=== PATIENT | male | born 1950 | race Caucasian/White ===

== ENCOUNTER 2017-01-04 00:26 | Emergency (ER) | payer MEDICARE ==
[2017-01-04 00:31] VITALS: RESP 18; TEMP 98.2
[2017-01-04] MEDS ORDERED: MORPHINE SULFATE 4 MG/ML SYRINGE IV STA (01:01)
[2017-01-04] MEDS ORDERED: NITROGLYCERIN OINT 1 INCH/GM PACKET TOPICAL STA (01:01)
[2017-01-04] MEDS ORDERED: ASPIRIN 81 MG CHEW PO STA (01:01)
[2017-01-04] MEDS ORDERED: ONDANSETRON 4 MG/2 ML VIAL IVP STA (01:01)
[2017-01-04] MEDS ORDERED: SODIUM CHLORIDE 0.9% 1,000 ML IV STA (01:01)
--- NOTE | 2017-01-04 01:03 | ED ---
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 His review of system or otherwise normal N he had a surgery on his right knee and is doing fairly well - Related Data Home Medications Medication Instructions Recorded Confirmed Aspirin 81 mg PO DAILY 03/20/14 01/04/17 Citalopram Hydrobromide 40 mg PO DAILY 03/20/14 01/04/17 [Citalopram HBr] Esomeprazole Magnesium [NexIUM] 40 mg PO DAILY 03/20/14 01/04/17 Klor-Con 20 20 meq PO DAILY 03/20/14 01/04/17 Lisinopril 40 mg PO DAILY 03/20/14 01/04/17 HYDROcodone/APAP 5-325MG [[place] 1 tab PO Q6HR PRN 01/04/17 01/04/17 5-325] Allergies Allergy/AdvReac Type Severity Reaction Status Date / Time No Known Allergies Allergy Verified 01/04/17 00:31 Review of Systems ROS Statement: Those systems with pertinent positive or pertinent negative responses have been documented in the HPI. ROS Other: All systems not noted in ROS Statement are negative. EKG Findings - EKG Comments: EKG Findings:: EKG is a normal sinus rhythm ventricular rate is 66 OR interval is 164 QRS duration is 1 or 2 QT/QTc is 440/461 review of this EKG does not reveal any ST elevation or ST depression Past Medical History Past Medical History: GERD/Reflux, Hyperlipidemia, Respiratory Disorder Additional Past Medical History / Comment(s): SNORES & BEING TESTED FOR SLEEP APNEA-HAS SOME SINUS PROBLEMS-VERY NASAL History of Any Multi-Drug Resistant Organisms: None Reported Past Surgical History: Back Surgery, Hernia Repair Additional Past Surgical History / Comment(s): HIATAL HERNA REPAIR Past Anesthesia/Blood Transfusion Reactions: No Reported Reaction Past Psychological History: No Psychological Hx Reported Smoking Status: Current every day smoker Past Alcohol Use History: Occasional Past Drug Use History: None Reported Additional Drug Use History / Comment(s): PT SMOKES 1 PPD General Exam - General Exam Comments Initial Comments: General: The patient is awake and alert, in no distress, and does not appear acutely ill. Skin: Skin is warm and dry and no rashes or lesions are noted. Eye: Pupils are equal, round and reactive to light, extra-ocular movements are intact; there is normal conjunctiva bilaterally. Ears, nose, mouth and throat: There are moist mucous membranes and no oral lesions. Neck: The neck is supple, there is no tenderness or JVD. Cardiovascular: There is a regular rate and rhythm. No murmur, rub or gallop is appreciated. Respiratory: To auscultation bilateral, crease breath sounds bilateral and consistent with the moderate COPD Gastrointestinal: Soft, non-distended, non-tender abdomen without masses or organomegaly noted. There is no rebound or guarding present. Bowel sounds are unremarkable. Back: There is no tenderness to palpation in the midline. There is no obvious deformity. Musculoskeletal: Normal ROM, no tenderness, There is no pedal edema. There is no calf tenderness or swelling. No cords were appreciated. Neurological: CN II-XII intact, Cranial nerves III through XII are intact. There are no obvious motor or sensory deficits. Coordination appears grossly intact. Speech is normal. Psychiatric: Cooperative, appropriate mood & affect, normal judgment. Limitations: no limitations Course Vital Signs 01/04/17 01/04/17 01/04/17 00:28 02:14 03:14 Temperature 98.2 F Pulse Rate 68 71 69 Respiratory 18 18 18 Rate Blood Pressure 142/78 119/67 127/63 O2 Sat by Pulse 96 96 98 Oximetry Critical Care Time Total Critical Care Time: 35 Critical Care Time: Patient presented with a chest pain since 10 AM today, he has a multiple risk factors he has a history of smoking I reviewed his labs and discussed with him his CBC, CMP are negative d-dimer is quite elevated CT chest was done to rule out PE that study is negative chest x-rays negative considering considering his risk factor he was advised to stay in for at least 3 sets of cardiac markers and now for possible cardiology consult and medical plan to heparinize him but tender at this point he wants to go home AGAINST MEDICAL ADVICE, I encouraged him to stay at least for observation. Disposition Clinical Impression: Chest pain Disposition: Left Against Medical Advice Instructions: Chest Pain (ED) Additional Instructions: Is advised to return to the ER if his symptoms get worse and follow-up with Dr. Gallardo Referrals: Martin Gallardo MD [Primary Care Provider] - 1-2 days
[2017-01-04 01:20] LABS: Basophils # (A) 0.1 k/uL (0-0.2); Basophils % (A) 1 %; CH 31.3; CHCM 33.3; Eosinophils # (A) 0.4 k/uL (0-0.7); Eosinophils % (A) 4 %; HDW 2.45; HGB 14.9 gm/dL (13.0-17.5); Luc # (Auto) 0.21; Luc % (Auto) 2; Lymphocytes # (A) 2.5 k/uL (1.0-4.8); Lymphocytes % (A) 21 %; MCH 31.2 pg (25.0-35.0); MCHC 33.1 g/dL (31.0-37.0); MCV 94.4 fL (80.0-100.0); Mean Platelet Volume 6.9; Monocytes # (A) 0.7 k/uL (0-1.0); Monocytes % (A) 6 %; Neutrophils # (A) 7.7 k/uL (1.3-7.7); Neutrophils % (A) 66 %; RBC 4.77 m/uL (4.30-5.90); RDW 12.9 % (11.5-15.5); WBC 11.7 k/uL (3.8-10.6); WBC (Perox) 11.26
[2017-01-04 01:31] LABS: Calcium 9.4 mg/dL (8.4-10.2); Magnesium 1.7 mg/dL (1.6-2.3); Potassium 4.6 mmol/L (3.5-5.1); Total Bilirubin 0.5 mg/dL (0.2-1.3); Total Protein 6.8 g/dL (6.3-8.2)
[2017-01-04 01:38] LABS: INR 1.1 (<1.1); Partial Thromboplastin Time 23.7 sec (22.0-30.0); Prothrombin Time 11.1 sec (9.0-12.0)
--- NOTE | 2017-01-04 01:38 | XR ---
EXAM: XR Chest, 2 Views. CLINICAL HISTORY: Reason: Chest Pain TECHNIQUE: Frontal and lateral views of the chest. COMPARISON: No relevant prior studies available. FINDINGS: Lungs: Minimal linear opacities present within both lungs, which may reflect minimal fibrotic changes or atelectasis/scarring. No superimposed infiltrate present. Pleural spaces: Unremarkable. No pneumothorax. Heart: Unremarkable. No cardiomegaly. Mediastinum: Unremarkable. Bones: Multilevel degenerative changes with slight rightward curvature of the thoracolumbar spine. IMPRESSION: No definite acute intrathoracic abnormality is seen, as above.
[2017-01-04 01:54] LABS: Creatine Kinase 43 U/L (55-170)
[2017-01-04 02:07] LABS: Creatine Kinase MB 0.5 ng/mL (0.0-2.4); Troponin I <0.012 ng/mL (0.000-0.034)
[2017-01-04] MEDS ORDERED: RX INFO: IV CONTRAST WAS GIVEN 1 EACH MISC MISCELLANE PRN (02:29)
[2017-01-04] MEDS ORDERED: SODIUM CHLORIDE 0.9% 500 ML IV ONE (02:30)
--- NOTE | 2017-01-04 03:26 | CT ---
EXAM: CT Angiography Chest With Intravenous Contrast. CLINICAL HISTORY: Reason: Pain TECHNIQUE: Axial computed tomographic angiography images of the chest with intravenous contrast using pulmonary embolism protocol. CTDI is 76.50 mGy and DLP is 417.80 mGy-cm MIP reconstructed images were created and reviewed. COMPARISON: Two-view chest earlier the same evening. FINDINGS: Pulmonary arteries: Unremarkable. No pulmonary embolism. Aorta: No acute findings. No thoracic aortic aneurysm. Lungs: There is a calcified granuloma in the right lower lobe. No mass. Pleural spaces: Unremarkable. No significant effusion. No pneumothorax. Heart: Small amount of coronary atherosclerotic calcification is seen. No significant pericardial effusion. No evidence of RV dysfunction. Bones: Osteopenia and multilevel degenerative changes. Slight rightward curvature of the thoracic spine. Hemangiomata are present within the T10 and T11 vertebral bodies. No acute fracture is seen. Lymph nodes: There are small calcified right hilar nodes. Upper abdomen: Tiny hepatic granuloma is present. Debris filled stomach noted, where included. IMPRESSION: 1. No definite acute process seen within the chest. 2. Additional findings, including coronary artery calcification and sequela from prior granulomatous disease, as above.
[2017-01-04 03:43] VITALS: BP 127/63; PULSE 69
== END 2017-01-04 04:10 | disposition left against medical advice (07) ==
LOC: EC 00:26
DX: R07.9 Chest pain, unspecified (principal); K21.9 Gastro-esophageal reflux disease without esophagitis; F17.200 Nicotine dependence, unspecified, uncomplicated; Z79.82 Long term (current) use of aspirin; Z79.899 Other long term (current) drug therapy
CPT/HCPCS: 99291; 96374; 96375; 96361 ×2; 36415; 93005; 85379; 80053; 82150; 82550; 82553; 83690; 83735; 84484; 85025; 85610; 85730; 71020; 71275; J2270; Q9967; J2405

== ENCOUNTER → 2019-03-28 | Outpatient (CLI) | payer MEDICARE ==
--- NOTE | 2019-03-28 14:39 | CTL ---
EXAMINATION TYPE: CT Low Dose Lung DATE OF EXAM ORDERED: 03/28/2019 HISTORY: Personal history of tobacco abuse. Lung cancer screening CT DLP: [address] CTDI: 2.68 mGy Automated exposure control for dose reduction was used. SCREENING VISIT: Initial COMPARISON: CT chest dated 01/04/2017 TECHNIQUE: Low dose computed tomography scan was performed through the chest at 1 mm thick sections a nd reconstructed images in the coronal plane at [address] DIAGNOSTIC QUALITY: Satisfactory FINDINGS: LUNG NODULES: Present, detailed below: There is a solid right apical pulmonary nodule contiguous with right apical fibrosis. This nodular de nsity measures approximately 5 mm. This likely represents continuation of a benign process. This is m arked on series 5 image 36. There is a benign right lower lobe medial granuloma on image 197. LUNGS: COPD: Severity: Mild centrilobular Fibrosis: Severity: Right apical only Lymph nodes: Calcified benign mediastinal lymph nodes. No adenopathy. RIGHT PLEURAL SPACE: Effusion: None Calcification: None Thickening: None Pneumothorax: None LEFT PLEURAL SPACE: Effusion: None Calcification: None Thickening: None Pneumothorax: None HEART: Heart Size: Nonenlarged Coronary calcification: Mild Pericardial effusion: None OTHER FINDINGS: Upper abdomen: Hepatic steatosis is incidentally noted. Bony thorax: Mild multilevel degenerative changes of the thoracic spine are seen. There appears to be a vertebral body hemangioma at T10 as the line sign is seen with internal trabecula. This is also se en to a lesser degree of T11. Compression deformity is seen of the T4 vertebral body that is age inde terminant. Lucent osseous cyst of the sternal body appears benign. Supraclavicular region: Unremarkable IMPRESSION: 1. Lung RADS 2S-benign appearance or behavior-nodules with a very low likelihood of becoming a clinic ally active cancer due to size. Continued annual screening with low dose CT in 12 months is recommend ed. 2. Age indeterminant compression deformity of the T4 vertebral body. Correlate with point tenderness to determine the need for MRI. FOLLOW UP CT CHEST RECOMMENDATION: Continued annual low dose screening with low dose CT in [address] LUNG RAD: 2S
== END | disposition home or self-care (01) ==
LOC: RADCTMAIN 13:35
PROVIDERS: ATTEND Internal Medicine
DX: Z12.2 Encounter for screening for malignant neoplasm of respiratory organs (principal); Z87.891 Personal history of nicotine dependence

== ENCOUNTER 2019-04-15 22:03 | Inpatient (IN) | payer MEDICARE ==
[2019-04-15] MEDS ORDERED: ONDANSETRON 4 MG/2 ML VIAL IVP STA (22:16)
[2019-04-15] MEDS ORDERED: SODIUM CHLORIDE 0.9% 1,000 ML IV STA (22:16)
[2019-04-15] MEDS ORDERED: MORPHINE SULFATE 4 MG/ML SYRINGE IV STA (22:16)
[2019-04-15] MEDS ORDERED: IPRATROPIUM-ALBUTEROL 3 ML NEB INHALATION STA (22:24)
--- NOTE | 2019-04-15 22:25 | ED ---
Abdominal Pain HPI - General Chief Complaint: Abdominal Pain Stated Complaint: Abd pain Time Seen by Provider: 04/15/19 22:16 Source: patient Mode of arrival: wheelchair Limitations: physical limitation - History of Present Illness Initial Comments: Sigifredo is a 69 -year-old male who is brought to the emergency department today by family for evaluation of abdominal pain. Patient reports that approximately 24 hours ago he began having some abdominal pain had some nausea and nonbloody emesis. Patient reports that throughout the day today he's had crampy abdominal pain, nausea and decreased by mouth intake. This evening the pain has become unbearable, he has pain in his abdomen with any deep breath, and is beginning to feel short of breath and family encouraged him to come to the ER for further evaluation. Patient does have a history of hiatal hernia which was surgically repaired a number of years ago no other history of any abdominal surgeries. Patient denies any fevers, chills, chest pain, diarrhea, constipation or lower urinary tract symptoms. - Related Data Home Medications Medication Instructions Recorded Confirmed Aspirin 81 mg PO DAILY 03/20/14 01/04/17 Citalopram Hydrobromide 40 mg PO DAILY 03/20/14 01/04/17 [Citalopram HBr] Esomeprazole Magnesium [NexIUM] 40 mg PO DAILY 03/20/14 01/04/17 Klor-Con 20 20 meq PO DAILY 03/20/14 01/04/17 Lisinopril 40 mg PO DAILY 03/20/14 01/04/17 HYDROcodone/APAP 5-325MG [[place] 1 tab PO Q6HR PRN 01/04/17 01/04/17 5-325] Allergies Allergy/AdvReac Type Severity Reaction Status Date / Time No Known Allergies Allergy Verified 04/15/19 22:11 Review of Systems ROS Statement: Those systems with pertinent positive or pertinent negative responses have been documented in the HPI. ROS Other: All systems not noted in ROS Statement are negative. Past Medical History Past Medical History: GERD/Reflux, Hyperlipidemia, Hypertension, Respiratory Disorder Additional Past Medical History / Comment(s): SNORES & BEING TESTED FOR SLEEP APNEA-HAS SOME SINUS PROBLEMS-VERY NASAL History of Any Multi-Drug Resistant Organisms: None Reported Past Surgical History: Back Surgery, Hernia Repair Additional Past Surgical History / Comment(s): HIATAL HERNA REPAIR Past Anesthesia/Blood Transfusion Reactions: No Reported Reaction Past Psychological History: No Psychological Hx Reported Smoking Status: Former smoker Past Alcohol Use History: Occasional Past Drug Use History: None Reported General Exam - General Exam Comments Initial Comments: Physical Exam GENERAL: Patient is well-developed and well-nourished. Appears uncomfortable HENT: Normocephalic, Atraumatic. EYES: PERRL, EOMI PULMONARY: Tachypnea with expiratory wheezing CARDIOVASCULAR: Tachycardic, regular ABDOMEN: Distended, diffuse tenderness SKIN: Skin is clear with no lesions or rashes and otherwise unremarkable. : Deferred NEUROLOGIC: Patient is alert and oriented x3. Moving all extremities spontaneously MUSCULOSKELETAL: Normal extremities with adequate strength and full range of motion. No lower extremity swelling or edema. No calf tenderness. PSYCHIATRIC: Normal psychiatric evaluation Limitations: physical limitation Course Vital Signs 04/15/19 04/15/19 04/15/19 22:08 23:17 23:24 Temperature 99.2 F Pulse Rate 122 H 117 H 113 H Respiratory 18 18 16 Rate Blood Pressure 125/79 O2 Sat by Pulse 94 L Oximetry 04/16/19 00:30 Temperature Pulse Rate 111 H Respiratory 22 Rate Blood Pressure 150/75 O2 Sat by Pulse 91 L Oximetry Medical Decision Making - Medical Decision Making Patient was seen and evaluated, history obtained from patient and family at bedside Patient noted to be tachypnic, tachycardic, appears uncomfortable Sepsis workup ordered Duonebs ordered for wheezing Reveal leukocytosis, normal kidney function Computed tomography scan concerning for a cecal mass possible gastritis, colitis Results discussed with the patient and family at bedside Patient reported morphine helped transiently however he is having pain again. Patient will be admitted for antibiotics for colitis, fluid resuscitation, pain management and evaluation by surgery. Patient family are agreeable to this. - Lab Data Result diagrams: 04/15/19 22:45 04/15/19 22:45 Lab Results 04/15/19 04/15/19 04/15/19 Range/Units 22:45 22:45 22:45 WBC 16.7 H (3.8-10.6) k/uL RBC 4.84 (4.30-5.90) m/uL Hgb 14.7 (13.0-17.5) gm/dL Hct 44.1 (39.0-53.0) % MCV 91.3 (80.0-100.0) fL MCH 30.4 (25.0-35.0) pg MCHC 33.3 (31.0-37.0) g/dL RDW 12.8 (11.5-15.5) % Plt Count 251 (150-450) k/uL Neutrophils % 83 % Lymphocytes % 10 % Monocytes % 5 % Eosinophils % 1 % Basophils % 0 % Neutrophils # 13.9 H (1.3-7.7) k/uL Lymphocytes # 1.6 (1.0-4.8) k/uL Monocytes # 0.8 (0-1.0) k/uL Eosinophils # 0.1 (0-0.7) k/uL Basophils # 0.0 (0-0.2) k/uL PT (9.0-12.0) sec INR (<1.2) APTT (22.0-30.0) sec Sodium 134 L (137-145) mmol/L Potassium 4.1 (3.5-5.1) mmol/L Chloride 100 (98-107) mmol/L Carbon Dioxide 22 (22-30) mmol/L Anion Gap 12 mmol/L BUN 11 (9-20) mg/dL Creatinine 0.74 (0.66-1.25) mg/dL Est GFR (CKD-EPI)AfAm >90 (>60 ml/min/1.73 sqM) Est GFR (CKD-EPI)NonAf >90 (>60 ml/min/1.73 sqM) Glucose 109 H (74-99) mg/dL Plasma Lactic Acid [place] 1.4 (0.7-2.0) mmol/L Calcium 9.7 (8.4-10.2) mg/dL Total Bilirubin 1.0 (0.2-1.3) mg/dL AST 27 (17-59) U/L ALT 40 (21-72) U/L Alkaline Phosphatase 69 (38-126) U/L Troponin I (0.000-0.034) ng/mL Total Protein 7.1 (6.3-8.2) g/dL Albumin 4.1 (3.5-5.0) g/dL Amylase 40 (30-110) U/L Lipase 56 (23-300) U/L 04/15/19 04/15/19 Range/Units 22:45 22:45 WBC (3.8-10.6) k/uL RBC (4.30-5.90) m/uL Hgb (13.0-17.5) gm/dL Hct (39.0-53.0) % MCV (80.0-100.0) fL MCH (25.0-35.0) pg MCHC (31.0-37.0) g/dL RDW (11.5-15.5) % Plt Count (150-450) k/uL Neutrophils % % Lymphocytes % % Monocytes % % Eosinophils % % Basophils % % Neutrophils # (1.3-7.7) k/uL Lymphocytes # (1.0-4.8) k/uL Monocytes # (0-1.0) k/uL Eosinophils # (0-0.7) k/uL Basophils # (0-0.2) k/uL PT 10.7 (9.0-12.0) sec INR 1.0 (<1.2) APTT 25.7 (22.0-30.0) sec Sodium (137-145) mmol/L Potassium (3.5-5.1) mmol/L Chloride (98-107) mmol/L Carbon Dioxide (22-30) mmol/L Anion Gap mmol/L BUN (9-20) mg/dL Creatinine (0.66-1.25) mg/dL Est GFR (CKD-EPI)AfAm (>60 ml/min/1.73 sqM) Est GFR (CKD-EPI)NonAf (>60 ml/min/1.73 sqM) Glucose (74-99) mg/dL Plasma Lactic Acid [place] (0.7-2.0) mmol/L Calcium (8.4-10.2) mg/dL Total Bilirubin (0.2-1.3) mg/dL AST (17-59) U/L ALT (21-72) U/L Alkaline Phosphatase (38-126) U/L Troponin I <0.012 (0.000-0.034) ng/mL Total Protein (6.3-8.2) g/dL Albumin (3.5-5.0) g/dL Amylase (30-110) U/L Lipase (23-300) U/L - EKG Data -: EKG Interpreted by [facility] EKG Comments: EKG was obtained at 20-25, rate is 111 rhythm is sinus tach with a bifascicular block and leftward axis normal intervals no acute ST elevations or depressions no evidence of acute ischemia or infarction. Disposition Clinical Impression: Abdominal pain, Colitis, Gastritis, Mass of cecum, Leukocytosis Disposition: ADMITTED IP TO THIS HOSP Condition: Stable Instructions (If sedation given, give patient instructions): Abdominal Pain (ED) Referrals: Martin Gallardo MD [Primary Care Provider] - 1-2 days
[2019-04-15 23:06] LABS: Basophils % (A) 0 %; Eosinophils # (A) 0.1 k/uL (0-0.7); Eosinophils % (A) 1 %; HCT 44.1 % (39.0-53.0); HGB 14.7 gm/dL (13.0-17.5); Lymphocytes # (A) 1.6 k/uL (1.0-4.8); Lymphocytes % (A) 10 %; MCH 30.4 pg (25.0-35.0); MCHC 33.3 g/dL (31.0-37.0); MCV 91.3 fL (80.0-100.0); Mean Platelet Volume 6.5; Monocytes # (A) 0.8 k/uL (0-1.0); Monocytes % (A) 5 %; Neutrophils # (A) 13.9 k/uL (1.3-7.7); Neutrophils % (A) 83 %; Platelet Count 251 k/uL (150-450); RBC 4.84 m/uL (4.30-5.90); RDW 12.8 % (11.5-15.5); WBC 16.7 k/uL (3.8-10.6)
[2019-04-15 23:14] LABS: Partial Thromboplastin Time 25.7 sec (22.0-30.0); Prothrombin Time 10.7 sec (9.0-12.0)
[2019-04-15 23:15] LABS: ALT 40 U/L (21-72); AST 27 U/L (17-59); African American GFR (CKD) >90 (>60 ml/min/1.73 sqM); Albumin 4.1 g/dL (3.5-5.0); Alkaline Phosphatase 69 U/L (38-126); Amylase 40 U/L (30-110); Anion Gap 12 mmol/L; Blood Urea Nitrogen 11 mg/dL (9-20); Calcium 9.7 mg/dL (8.4-10.2); Carbon Dioxide 22 mmol/L (22-30); Chloride 100 mmol/L (98-107); Glucose 109 mg/dL (74-99); Potassium 4.1 mmol/L (3.5-5.1); Sodium 134 mmol/L (137-145); Total Protein 7.1 g/dL (6.3-8.2)
--- NOTE | 2019-04-16 00:03 | XR ---
EXAM: XR Abdomen, 2 Views CLINICAL HISTORY: Abdominal pain TECHNIQUE: Frontal view of the abdomen/pelvis with upright view of the abdomen. COMPARISON: No relevant prior studies available. FINDINGS: Intraperitoneal space: Nonobstructing bowel gas pattern. No pneumatosis or free air. Gastrointestinal tract: Unremarkable. No dilation. Bones/joints: Scoliosis and degenerative changes of the spine. Vasculature: Punctate calcifications of the pelvis which may represent phleboliths. IMPRESSION: No acute findings.
--- NOTE | 2019-04-16 00:31 | CT ---
EXAM: CT Abdomen and Pelvis With Intravenous Contrast CLINICAL HISTORY: Pain TECHNIQUE: Axial computed tomography images of the abdomen and pelvis with intravenous contrast. CTDI is 0.085, 0.085, 14.4, 15.9 mGy and DLP is 1460.2 mGy-cm. This CT exam was performed using one or more of the following dose reduction techniques: automated exposure control, adjustment of the mA and/or kV according to patient size, and/or use of iterative reconstruction technique. COMPARISON: No relevant prior studies available. FINDINGS: Lung bases: Bibasilar atelectasis and or scarring. ABDOMEN: Liver: Decreased attenuation of the liver suggesting hepatic steatosis. Gallbladder and bile ducts: Unremarkable. Pancreas: Unremarkable. Spleen: Unremarkable. Adrenals: Unremarkable. Kidneys and ureters: Cysts within both kidneys. Stomach and bowel: Marked wall thickening noted about the cecum, concerning for malignancy. A non-specific colitis is not excluded but felt to be less likely. Thickening in the gastric rugae which may be secondary to underdistention versus a nonspecific gastritis. Noninflamed colonic diverticulosis. PELVIS: Appendix: No findings to suggest acute appendicitis. Bladder: Unremarkable. Reproductive: Unremarkable as visualized. ABDOMEN and PELVIS: Intraperitoneal space: Unremarkable. Bones/joints: No acute fracture. No dislocation. Soft tissues: Tiny fat-containing inguinal hernias. Vasculature: Unremarkable. No abdominal aortic aneurysm. Lymph nodes: Unremarkable. IMPRESSION: 1. Marked wall thickening noted about the cecum, concerning for malignancy. A non-specific colitis is not excluded but felt to be less likely. 2. Thickening in the gastric rugae which may be secondary to underdistention versus a nonspecific gastritis.
[2019-04-16] MEDS ORDERED: cefTRIAXone IN SWFI 1,000 MG/10 ML SYRINGE IVP STA (00:37)
[2019-04-16] MEDS ORDERED: metroNIDAZOLE-NS PMX 500 MG in SALINE 1 100ML.BAG IVPB STA (00:37)
[2019-04-16] MEDS ORDERED: NALOXONE 0.4 MG/ML 1 ML VIAL IV PRN (00:54)
[2019-04-16 01:09] LABS: Appearance,Urine Clear (Clear); Bilirubin,Urine Negative (Negative); Blood,Urine Negative (Negative); Color,Urine Yellow; Glucose,Urine (UA) Negative (Negative); Hyaline Casts,Urine 1 /lpf (0-2); Ketones,Urine Negative (Negative); Leukocyte Esterase,Urine Negative (Negative); Mucus,Urine Rare /hpf; Nitrite,Urine Negative (Negative); Protein,Urine 1+ (Negative); RBC,Urine 1 /hpf (0-5); Specific Gravity,Urine 1.015 (1.001-1.035); Urobilinogen,Urine >12.0 mg/dL (<2.0); WBC,Urine 1 /hpf (0-5)
[2019-04-16] MEDS: HYDROmorphone 1 MG/ML 1 ML SYRINGE IVP PRN ×2 (01:13→23:25)
[2019-04-16] MEDS: IPRATROPIUM-ALBUTEROL 3 ML NEB INHALATION PRN ×4 (08:23→20:57)
[2019-04-16] MEDS: PANTOPRAZOLE 40 MG/10 ML VIAL IV SCH (09:25)
[2019-04-16] MEDS: MORPHINE SULFATE 4 MG/ML SYRINGE IV PRN ×2 (09:31→20:39)
[2019-04-16] MEDS ORDERED: PEG 3350-NA SULF,BICARB,CL/KCL 4,000 ML BOTTLE PO ONE (12:54)
--- NOTE | 2019-04-16 13:40 | P.GSCN ---
History of Present Illness Consult date: 04/16/19 Reason for Consult: possible cecal mass per CT Requesting physician: Mayra Woodward History of present illness: CHIEF COMPLAINT: Abdominal pain HISTORY OF PRESENT ILLNESS: 69-year-old male who presented to the emergency room with a chief complaint of abdominal pain. The patient states he began having diffuse abdominal pain on Tuesday that occurred suddenly. He reports nausea and an episode of small bilious emesis on Tuesday. He reports decreased oral intake secondary to pain. He does not believe he has had a bowel movement in a few days. He reports intermittent rectal bleeding over the past few weeks. He reports abdominal bloating. Last colonoscopy was performed in March 2014 revealing hyperplastic sigmoid and rectal polyp and minimal diverticulosis. WBC 16.7 on admission. Patient denies familial history of colon cancer. PAST MEDICAL HISTORY: See list. PAST SURGICAL HISTORY: See list. SOCIAL HISTORY: No illicit drug use. REVIEW OF SYSTEMS: CONSTITUTIONAL: Denies fever or chills. HEENT: Denies blurred vision, vision changes, or eye pain. Denies hemoptysis CARDIOVASCULAR: Denies chest pain or pressure. RESPIRATORY: No shortness of breath. GASTROINTESTINAL: Refer to HPI for pertinent findings HEMATOLOGIC: Denies bleeding disorders. GENITOURINARY: Denies any blood in urine. SKIN: Denies pruitis. Denies rash. PHYSICAL EXAM: VITAL SIGNS: Reviewed. GENERAL: Well-developed in no acute distress. HEENT: No sclera icterus. Extraocular movements grossly intact. Moist buccal mucosa. Head is atraumatic, normocephalic. ABDOMEN: Bloated. Distended. Tenderness upon palpation of right and left lower quadrants. NEUROLOGIC: Alert and oriented. Cranial nerves II through XII grossly intact. IMAGING: CT abdomen and pelvis: Marked wall thickening noted of the cecum concerning for malignancy. Nonspecific colitis is not excluded but felt to be less likely. Thickening in the gastric rugae which may be secondary to under distention versus nonspecific gastritis. ASSESSMENT: 1. Abdominal pain 2. Marked wall thickening of cecum, possible malignancy versus nonspecific colitis PLAN: Continue antibiotics Clear liquid diet. NPO after midnight GoLYTELY bowel prep today Colonoscopy to be performed tomorrow by Dr. Givens Nurse practitioner note has been reviewed by physician. Signing provider agrees with the documented findings, assessment, and plan of care. Past Medical History Past Medical History: GERD/Reflux, Hyperlipidemia, Hypertension, Respiratory Disorder, Sleep Apnea/CPAP/BIPAP Additional Past Medical History / Comment(s): SNORES & BEING TESTED FOR SLEEP APNEA-HAS SOME SINUS PROBLEMS-VERY NASAL History of Any Multi-Drug Resistant Organisms: None Reported Past Surgical History: Back Surgery, Hernia Repair Additional Past Surgical History / Comment(s): HIATAL HERNIA REPAIR Past Anesthesia/Blood Transfusion Reactions: No Reported Reaction Past Psychological History: No Psychological Hx Reported Smoking Status: Former smoker Past Alcohol Use History: Occasional Past Drug Use History: None Reported - Past Family History Father Additional Family Medical History / Comment(s): from "something with his pancreas" Medications and Allergies Home Medications Medication Instructions Recorded Confirmed Type Citalopram Hydrobromide 40 mg PO DAILY 03/20/14 04/16/19 History [Citalopram HBr] Lisinopril 40 mg PO DAILY 03/20/14 04/16/19 History Albuterol Inhaler [Ventolin Hfa 1 - 2 puff INHALATION RT-QID PRN 04/16/19 04/16/19 History Inhaler] Aspirin EC [Ecotrin Low Dose] 81 mg PO DAILY 04/16/19 04/16/19 History Baclofen [Lioresal] 10 mg PO BID PRN 04/16/19 04/16/19 History Esomeprazole Magnesium [NexIUM] 20 mg PO DAILY 04/16/19 04/16/19 History Fish Oil/Dha/Epa [Fish Oil 1,200 1 cap PO DAILY 04/16/19 04/16/19 History mg Fish Oil] Fluticasone/Salmeterol [Advair 1 puff INHALATION RT-BID 04/16/19 04/16/19 History 500-50 Diskus] Gemfibrozil [Lopid] 600 mg PO AC-BID 04/16/19 04/16/19 History HYDROcodone/APAP 7.5-325MG [[place] 1 tab PO Q12H PRN 04/16/19 04/16/19 History 7.5-325] Metoclopramide [Reglan] 5 mg PO TID 04/16/19 04/16/19 History Niacin 500 mg PO DAILY 04/16/19 04/16/19 History Potassium Gluconate 99 mg PO DAILY 04/16/19 04/16/19 History Rosuvastatin [Crestor] 20 mg PO DAILY 04/16/19 04/16/19 History Ubidecarenone [Co Q-10] 200 mg PO DAILY 04/16/19 04/16/19 History metFORMIN HCL [Glucophage] 500 mg PO BID 04/16/19 04/16/19 History Allergies Allergy/AdvReac Type Severity Reaction Status Date / Time No Known Allergies Allergy Verified 04/16/19 10:30 Surgical - Exam Vital Signs Temp Pulse Resp BP Pulse Ox 99.2 F 122 H 18 125/79 94 L 04/15/19 22:08 04/15/19 22:08 04/15/19 22:08 04/15/19 22:08 04/15/19 22:08 Results - Labs 04/15/19 22:45 04/15/19 22:45 Abnormal Lab Results - Last 24 Hours (Table) 04/15/19 04/15/19 04/15/19 Range/Units 22:45 22:45 23:25 WBC 16.7 H (3.8-10.6) k/uL Neutrophils # 13.9 H (1.3-7.7) k/uL Sodium 134 L (137-145) mmol/L Glucose 109 H (74-99) mg/dL Urine Protein 1+ H (Negative) Urine Mucus Rare H (None) /hpf Diabetes panel 04/15/19 Range/Units 22:45 Sodium 134 L (137-145) mmol/L Potassium 4.1 (3.5-5.1) mmol/L Chloride 100 (98-107) mmol/L Carbon Dioxide 22 (22-30) mmol/L BUN 11 (9-20) mg/dL Creatinine 0.74 (0.66-1.25) mg/dL Glucose 109 H (74-99) mg/dL Calcium 9.7 (8.4-10.2) mg/dL AST 27 (17-59) U/L ALT 40 (21-72) U/L Alkaline Phosphatase 69 (38-126) U/L Total Protein 7.1 (6.3-8.2) g/dL Albumin 4.1 (3.5-5.0) g/dL Calcium panel 04/15/19 Range/Units 22:45 Calcium 9.7 (8.4-10.2) mg/dL Albumin 4.1 (3.5-5.0) g/dL Pituitary panel 04/15/19 Range/Units 22:45 Sodium 134 L (137-145) mmol/L Potassium 4.1 (3.5-5.1) mmol/L Chloride 100 (98-107) mmol/L Carbon Dioxide 22 (22-30) mmol/L BUN 11 (9-20) mg/dL Creatinine 0.74 (0.66-1.25) mg/dL Glucose 109 H (74-99) mg/dL Calcium 9.7 (8.4-10.2) mg/dL Adrenal panel 04/15/19 Range/Units 22:45 Sodium 134 L (137-145) mmol/L Potassium 4.1 (3.5-5.1) mmol/L Chloride 100 (98-107) mmol/L Carbon Dioxide 22 (22-30) mmol/L BUN 11 (9-20) mg/dL Creatinine 0.74 (0.66-1.25) mg/dL Glucose 109 H (74-99) mg/dL Calcium 9.7 (8.4-10.2) mg/dL Total Bilirubin 1.0 (0.2-1.3) mg/dL AST 27 (17-59) U/L ALT 40 (21-72) U/L Alkaline Phosphatase 69 (38-126) U/L Total Protein 7.1 (6.3-8.2) g/dL Albumin 4.1 (3.5-5.0) g/dL
[2019-04-16] MEDS: SODIUM CHLORIDE 0.9% 1,000 ML IV SCH ×2 (13:55→23:21)
[2019-04-16] MEDS ORDERED: BACLOFEN 10 MG TAB PO PRN (13:56)
[2019-04-16] MEDS ORDERED: HYDROcodone/APAP 7.5-325MG 1 EACH TAB PO PRN (13:56)
[2019-04-16] MEDS ORDERED: METOCLOPRAMIDE 5 MG TAB PO PRN (13:56)
--- NOTE | 2019-04-16 15:56 | P.HPIM ---
History of Present Illness H&P Date: 04/16/19 Chief Complaint: Abdominal pain This is a 69-year-old male patient of Dr. Gallardo with past medical history of hypertension, hyperlipidemia, COPD, gastroesophageal reflux disease, remote history of tobacco use, obstructive sleep apnea not using CPAP. Patient complains of sudden onset of abdominal pain starting on Tuesday. He also complains of bloating in the abdomen for the past couple months as well as weight loss of 5-10 pounds over the past 3 months. He complains of decreased appetite. He states he has had occasional burgundy stools. He denies any black stools, no diarrhea, no vomiting. He denies any urinary symptoms. Patient states he had his last colonoscopy in 2013 which was normal. Patient presents to [facility] emergency center for evaluation. Abdominal x-ray shows no acute findings. CAT scan of the abdomen and pelvis s howed marked thickening of the cecum concerning for malignancy. A nonspecific colitis is not excluded but felt to be less likely. Thickening in the gastric rugae which may be secondary to under distention versus a nonspecific gastritis. EKG is a sinus tachycardia with right bundle branch block, left AFB. WBC 16.7, hemoglobin 14.7, creatinine 0.74. Troponin negative. Amylase and lipase, liver function tests all normal. Urinalysis was clear with 1+ protein. Patient was admitted to the [facility] floor, consult with Dr. Givens, IV fluids, pain medications and Zofran. Plan is for colonoscopy tomorrow. Review of Systems All systems: negative Constitutional: Reports poor appetite, Reports weight loss, Denies chills, Denies fatigue, Denies fever, Denies lethargy, Denies malaise Eyes: denies blurred vision, denies pain Ears, nose, mouth and throat: Denies dysphagia, Denies headache, Denies mouth pain, Denies nasal discharge, Denies sore throat, Denies vertigo Cardiovascular: Denies chest pain, Denies decreased exercise tolerance, Denies dyspnea on exertion, Denies edema, Denies leg edema, Denies lightheadedness, Denies orthopnea, Denies shortness of breath, Denies syncope Respiratory: Reports sleep apnea, Denies cough, Denies cough with sputum, Denies dyspnea, Denies excessive sputum, Denies hemoptysis, Denies home oxygen Gastrointestinal: Reports abdominal pain, Reports bloating, Reports loss of appetite, Reports melena (Burgundy colored stools), Denies change in bowel habits, Denies diarrhea, Denies hematemesis, Denies hematochezia, Denies nausea, Denies vomiting Genitourinary: Denies dysuria, Denies urinary frequency, Denies urinary hesitancy, Denies urinary retention Musculoskeletal: Denies frequent falls, Denies gait dysfunction, Denies muscle weakness, Denies myalgias Integumentary: Denies pruritus, Denies rash, Denies wounds Neurological: Denies aphasia, Denies change in mentation, Denies change in speech, Denies numbness, Denies seizures, Denies vertigo, Denies weakness Psychiatric: Denies anxiety, Denies depression Endocrine: Denies fatigue, Denies weight change Past Medical History Past Medical History: COPD, GERD/Reflux, Hyperlipidemia, Hypertension, Respiratory Disorder, Sleep Apnea/CPAP/BIPAP Additional Past Medical History / Comment(s): SNORES & BEING TESTED FOR SLEEP APNEA-HAS SOME SINUS PROBLEMS-VERY NASAL History of Any Multi-Drug Resistant Organisms: None Reported Past Surgical History: Back Surgery, Hernia Repair Additional Past Surgical History / Comment(s): HIATAL HERNIA REPAIR, last colonoscopy 2013. Past Anesthesia/Blood Transfusion Reactions: No Reported Reaction Past Psychological History: No Psychological Hx Reported Smoking Status: Former smoker Past Alcohol Use History: Occasional Additional Past Alcohol Use History / Comment(s): Patient was a smoker of 2 packs per day for 50 years and quit 11/01/2018. He denies any illicit drug use, no alcohol abuse. He lives at home with his . He has a CPAP which she is n ot using. Past Drug Use History: None Reported - Past Family History Father Additional Family Medical History / Comment(s): Father from pancreatic cancer. Mother Additional Family Medical History / Comment(s): Mother from aspirating Brother(s) Additional Family Medical History / Comment(s): Patient has 1 brother that from hepatitis from IV drug use. One brother is alive with history of CVA. Patient does not have any sisters. Patient has 3 sons with no major medical problems. Medications and Allergies Home Medications Medication Instructions Recorded Confirmed Type Citalopram Hydrobromide 40 mg PO DAILY 03/20/14 04/16/19 History [Citalopram HBr] Lisinopril 40 mg PO DAILY 03/20/14 04/16/19 History Albuterol Inhaler [Ventolin Hfa 1 - 2 puff INHALATION RT-QID PRN 04/16/19 04/16/19 History Inhaler] Aspirin EC [Ecotrin Low Dose] 81 mg PO DAILY 04/16/19 04/16/19 History Baclofen [Lioresal] 10 mg PO BID PRN 04/16/19 04/16/19 History Esomeprazole Magnesium [NexIUM] 20 mg PO DAILY 04/16/19 04/16/19 History Fish Oil/Dha/Epa [Fish Oil 1,200 1 cap PO DAILY 04/16/19 04/16/19 History mg Fish Oil] Fluticasone/Salmeterol [Advair 1 puff INHALATION RT-BID 04/16/19 04/16/19 History 500-50 Diskus] Gemfibrozil [Lopid] 600 mg PO AC-BID 04/16/19 04/16/19 History HYDROcodone/APAP 7.5-325MG [[place] 1 tab PO Q12H PRN 04/16/19 04/16/19 History 7.5-325] Metoclopramide [Reglan] 5 mg PO TID 04/16/19 04/16/19 History Niacin 500 mg PO DAILY 04/16/19 04/16/19 History Potassium Gluconate 99 mg PO DAILY 04/16/19 04/16/19 History Rosuvastatin [Crestor] 20 mg PO DAILY 04/16/19 04/16/19 History Ubidecarenone [Co Q-10] 200 mg PO DAILY 04/16/19 04/16/19 History metFORMIN HCL [Glucophage] 500 mg PO BID 04/16/19 04/16/19 History Allergies Allergy/AdvReac Type Severity Reaction Status Date / Time No Known Allergies Allergy Verified 04/16/19 10:30 Physical Exam Vitals: Vital Signs Temp Pulse Pulse Resp BP BP Pulse Ox 04/16/19 08:42 75 04/16/19 08:26 82 92 L 04/16/19 07:00 98.5 F 85 16 131/84 92 L 04/16/19 01:36 113 H 22 116/74 90 L 06/10/19 01:15 98.6 F 103 H 18 120/72 92 L 04/16/19 00:30 111 H 22 150/75 91 L 04/15/19 23:24 113 H 16 04/15/19 23:17 117 H 18 04/15/19 22:08 99.2 F 122 H 18 125/79 94 L Intake and Output 04/15/19 04/16/19 04/16/19 22:59 06:59 14:59 Intake Total 100 Balance 100 Intake: Intake, IV Titration 100 Amount metroNIDAZOLE-NS PMX 500 100 mg In Saline 1 100ml.bag @ 100 mls/hr IVPB ONCE STA Rx#:[id number] Other: Voiding Method Toilet Weight 109.769 kg Gen: This is an obese 69-year-old male. Patient is resting in bed and appears to be comfortable. Family members at the bedside. HEENT: Head is atraumatic, normocephalic. Pupils equal, round. Sclerae is anicteric. NECK: Supple. No JVD. No lymphadenopathy. No thyromegaly. LUNGS: Clear to auscultation. No wheezes or rhonchi. No intercostal retractions. HEART: Regular rate and rhythm. No murmur. ABDOMEN: Soft. Bowel sounds are present. No masses. Lower quadrant tenderness. EXTREMITIES: No pedal edema. No calf tenderness. NEUROLOGICAL: Patient is awake, alert and oriented x3. Cranial nerves 2 through 12 are grossly intact. Results CBC & Chem 7: 04/15/19 22:45 04/15/19 22:45 Labs: Abnormal Lab Results - Last 24 Hours (Table) 04/15/19 04/15/19 04/15/19 Range/Units 22:45 22:45 23:25 WBC 16.7 H (3.8-10.6) k/uL Neutrophils # 13.9 H (1.3-7.7) k/uL Sodium 134 L (137-145) mmol/L Glucose 109 H (74-99) mg/dL Urine Protein 1+ H (Negative) Urine Mucus Rare H (None) /hpf Thrombosis Risk Factor Assmnt - DVT/VTE Prophylaxis DVT/VTE Prophylaxis: Pharmacologic Prophylaxis ordered - Choose All That Apply Each Risk Factor Represents 2 Points: Age 61-74 years Thrombosis Risk Factor Assessment Total Risk Factor Score: 2 Thrombosis Risk Factor Assessment Level: Low Risk Assessment and Plan Plan: 1. Abdominal pain, possible colitis, possible malignancy of the cecum. Consult with Dr. Givens. Continue IV fluids, Zofran for nausea, Dilaudid or morphine for pain control, Flagyl IV and add Levaquin. 2. Hypertension. Vasotec IV as needed for systolic blood pressure greater than 160. Continue lisinopril 40 mg daily, hydrochlorothiazide 25 mg daily, verapamil 240 mg daily. 3. Hyperlipidemia. Crestor, niacin and Lopid on hold. 4. Gastroesophageal reflux disease. Continue Protonix. 5. Probable COPD. Continue DuoNeb treatments every 4 hours as needed. 6. Diabetes mellitus type 2, insulin requiring, uncontrolled with hyper glycemia. Metformin on hold. NovoLog scale before meals and at bedtime. Levemir 60 units daily, NovoLog scheduled 30 units with breakfast, 20 units with lunch, 30 units with supper. 7. Generalized anxiety disorder. Continue citalopram 40 mg daily. 8. DVT prophylaxis. Heparin subcu. Patient will be admitted to the hospital for a minimum of 2 night stay. Discharge plan: To be determined. Most likely return home. Impression and plan of care have been directed as dictated by the signing physician. Destini Navarro nurse practitioner acting as scribe for signing physician.
[2019-04-16] MEDS: INSULIN ASPART (NovoLOG) 100 UNIT/ML VIAL SQ SCH ×3 (16:12→20:29)
[2019-04-16] MEDS: LEVOFLOXACIN 500MG-D5W PMX 500 MG in DEXTROSE/WATER 1 100ML.BAG IVPB SCH (16:12)
[2019-04-16] MEDS: LISINOPRIL 20 MG TAB PO SCH (16:21)
[2019-04-16 17:18] LABS: Glucose,Whole Blood 122 mg/dL (75-99)
[2019-04-16] MEDS: PIPERACILLIN-TAZOBACTAM 3.375 GM in SODIUM CHLORIDE 0.9% 100 ML IVPB SCH (19:32)
--- NOTE | 2019-04-16 19:35 | ECHOF ---
Referral Reason:LVF, preop MEASUREMENTS -------- HEIGHT: 180.3 cm WEIGHT: 109.8 kg BP: IVSd: 1.4 cm (0.6 - 1.1) LVIDd: 3.6 cm (3.9 - 5.3) LVPWd: 1.4 cm (0.6 - 1.1) IVSs: 1.4 cm LVIDs: 1.9 cm LVPWs: 1.7 cm RVIDd: 4.0 cm (< 3.3) Ao Diam: 3.4 cm (2.0 - 3.7) LA Diam: 3.4 cm (2.7 - 3.8) AV Cusp: 2.5 cm (1.5 - 2.6) EPSS: 0.3 cm MV E Roel: 0.62 m/s MV DecT: 234 ms MV A Roel: 0.76 m/s MV E/A Ratio: 0.82 RAP: 5.00 mmHg RVSP: 19.16 mmHg MV EF SLOPE: 48.22 mm/s (70 - 150) MV EXCURSION: 14.58 mm (> 18.000) FINDINGS -------- Sinus rhythm. This was a technically difficult study with suboptimal views. The left ventricular size is normal. There is moderate concentric left ventricular hypertrophy. O verall left ventricular systolic function is normal with, an EF between 55 - 60 %. The right ventricle is moderately enlarged. The left atrial size is normal. The right atrial size is normal. Lumason used The aortic valve is trileaflet and appears structurally normal. There is trace mitral regurgitation. Trace tricuspid regurgitation present. There is no evidence of pulmonary hypertension. The right ventricular systolic pressure, as measured by Doppler, is 19.16mmHg. The pulmonic valve was not well visualized. The aortic root size is normal. There is no pericardial effusion. CONCLUSIONS -------- 1. Sinus rhythm. 2. This was a technically difficult study with suboptimal views. 3. The left ventricular size is normal. 4. There is moderate concentric left ventricular hypertrophy. 5. Overall left ventricular systolic function is normal with, an EF between 55 - 60 %. 6. The right ventricle is moderately enlarged. 7. The left atrial size is normal. 8. The right atrial size is normal. 9. Lumason used 10. The aortic valve is trileaflet and appears structurally normal. 11. There is trace mitral regurgitation. 12. Trace tricuspid regurgitation present. 13. There is no evidence of pulmonary hypertension. 14. The right ventricular systolic pressure, as measured by Doppler, is 19.16mmHg. 15. The pulmonic valve was not well visualized. 16. The aortic root size is normal. 17. There is no pericardial effusion. RAYMOND MILL OPERATOR: Arlette Rocha RDCS
[2019-04-16 20:35] LABS: Glucose,Whole Blood 93 mg/dL (75-99)
[2019-04-16] MEDS: HEPARIN SODIUM,PORCINE 5,000 UNIT/ML 1 ML VIAL SQ SCH (20:38)
[2019-04-16] MEDS: ONDANSETRON 4 MG/2 ML VIAL IVP PRN (20:38)
[2019-04-16] MEDS: BUDESONIDE 1 MG/2 ML NEBU INHALATION SCH (20:57)
[2019-04-17] MEDS: PIPERACILLIN-TAZOBACTAM 3.375 GM in SODIUM CHLORIDE 0.9% 100 ML IVPB SCH ×4 (00:31→20:43)
[2019-04-17] MEDS: MORPHINE SULFATE 4 MG/ML SYRINGE IV PRN (01:19)
[2019-04-17] MEDS: ONDANSETRON 4 MG/2 ML VIAL IVP PRN (01:38)
[2019-04-17] MEDS: HYDROmorphone 1 MG/ML 1 ML SYRINGE IVP PRN ×3 (03:48→21:31)
[2019-04-17] MEDS ORDERED: FUROSEMIDE 10 MG/ML 4 ML VIAL ONE (06:22)
[2019-04-17] MEDS ORDERED: FUROSEMIDE 10 MG/ML 4 ML VIAL IV STA (06:22)
[2019-04-17 07:01] LABS: Glucose,Whole Blood 204 mg/dL (75-99)
[2019-04-17 07:03] LABS: ABG Base Excess -3.3 mmol/L; ABG HCO3 26 mmol/L (21-25); ABG Oxygen Saturation 95.4 % (94-97); ABG PO2 102 mmHg (83-108); ABG TCO2 28 mmol/L (19-24); Allen Test Performed? Yes
[2019-04-17 07:10] LABS: ABG PCO2 76 mmHg (35-45)
[2019-04-17] MEDS ORDERED: CISATRACURIUM 2 MG/ML 5 ML VIAL IV ONE (07:25)
--- NOTE | 2019-04-17 07:25 | XR ---
EXAMINATION TYPE: XR chest 1V DATE OF EXAM: 04/17/2019 CLINICAL HISTORY: Difficulty breathing and hypoxia. TECHNIQUE: Single AP portable upright view of the chest is obtained. COMPARISON: Chest x-ray and CTA chest from January 04, 2017. More recent low dose lung screening CT March 28, 2019. FINDINGS: There is background chronic emphysematous change with new right lower lung masslike consol idation and slightly elevated left hemidiaphragm with patchy left basilar opacity. No pleural effusio n or pneumothorax is evident bilaterally. Cardiac silhouette size is more prominent on current study felt mildly enlarged. Osseous structures are intact. IMPRESSION: New right basilar pneumonic consolidation with diminished inspiration and background righ t hilar and left basilar more patchy edema and/or infiltrate felt present. Findings all new from March [address] CT[address]
--- NOTE | 2019-04-17 07:29 | P.CNPUL ---
History of Present Illness Consult date: 04/17/19 Reason for consult: dyspnea History of present illness: 69-year-old male patient, obese with history of obstructive sleep apnea in addition to COPD hypertension and hyperlipidemia, came in yesterday the hospital because of abdominal pain that started few days back. The patient apparently began having diffuse abdominal pain and reported some nausea and the presence of a small bilious emesis she days back. He had reported diminished oral intake. The abdomen was quite distended and the patient reported diminished appetite. He had occasional burgundy stool. No melena. No diarrhea. His last colonoscopy from 2013 was within normal limits. Based on this, CAT scan of the abdomen and pelvis was done that showed marked thickening of the cecum concerning for malignancy. Possibility of nonspecific colitis cannot be completely excluded. There was also thickening of the gastric rugae related to gastric distention. Overnight the patient was given IV fluids and IV antibiotics and the patient was receiving normal saline at rate of 150 mL an hour. At around 6 left this morning, the patient became acutely short of breath. Initially was placed on high flow oxygen later on in the 100% nonrebreather and a chest x-ray was done that showed diffuse bilateral pulmonary infiltration and a masslike consolidation of the right lower lobe. Patient got transferred to the ICU. The patient was placed on a BiPAP. Currently at a pressure of 14 over several flights of 100%. Despite that, he remains tachypneic and he is using excessive muscle breathing. His blood pressure with a pH of 7.13 with a pCO2 of 76 and pO2 of 102. The patient's abdomen is quite distended and he remains unresponsive. He was given IV Lasix and he produces 800 mL of urine output. Abdomen is quite tympanic and distended. Echocardiogram that was done yesterday showed a preserved LV function with an ejection fraction of 55-60%, arteries moderately enlarged, pulmonary artery pressures of nonelevated. No other significant valvular disease noted. No blood work from today. Review of Systems ROS unobtainable: due to mental status Past Medical History Past Medical History: COPD, GERD/Reflux, Hyperlipidemia, Hypertension, Respiratory Disorder, Sleep Apnea/CPAP/BIPAP Additional Past Medical History / Comment(s): Morbid obesity, sleep apnea, chronic sinus disease, hypertension, hyperlipidemia, acid reflux, COPD History of Any Multi-Drug Resistant Organisms: None Reported Past Surgical History: Back Surgery, Hernia Repair Additional Past Surgical History / Comment(s): HIATAL HERNIA REPAIR, last colonoscopy 2013. Past Anesthesia/Blood Transfusion Reactions: No Reported Reaction Past Psychological History: No Psychological Hx Reported Smoking Status: Former smoker Past Alcohol Use History: Occasional Additional Past Alcohol Use History / Comment(s): Patient was a smoker of 2 packs per day for 50 years and quit 11/01/2018. He denies any illicit drug use, no alcohol abuse. He lives at home with his . He has a CPAP which she is not using. Past Drug Use History: None Reported - Past Family History Father Additional Family Medical History / Comment(s): Father from pancreatic cancer. Mother Additional Family Medical History / Comment(s): Mother from aspirating Brother(s) Additional Family Medical History / Comment(s): Patient has 1 brother that from hepatitis from IV drug use. One brother is alive with history of CVA. Patient does not have any sisters. Patient has 3 sons with no major medical problems. Medications and Allergies Home Medications Medication Instructions Recorded Confirmed Type Citalopram Hydrobromide 40 mg PO DAILY 03/20/14 04/16/19 History [Citalopram HBr] Lisinopril 40 mg PO DAILY 03/20/14 04/16/19 History Albuterol Inhaler [Ventolin Hfa 1 - 2 puff INHALATION RT-QID PRN 04/16/19 04/16/19 History Inhaler] Aspirin EC [Ecotrin Low Dose] 81 mg PO DAILY 04/16/19 04/16/19 History Baclofen [Lioresal] 10 mg PO BID PRN 04/16/19 04/16/19 History Esomeprazole Magnesium [NexIUM] 20 mg PO DAILY 04/16/19 04/16/19 History Fish Oil/Dha/Epa [Fish Oil 1,200 1 cap PO DAILY 04/16/19 04/16/19 History mg Fish Oil] Fluticasone/Salmeterol [Advair 1 puff INHALATION RT-BID 04/16/19 04/16/19 History 500-50 Diskus] Gemfibrozil [Lopid] 600 mg PO AC-BID 04/16/19 04/16/19 History HYDROcodone/APAP 7.5-325MG [[place] 1 tab PO Q12H PRN 04/16/19 04/16/19 History 7.5-325] Metoclopramide [Reglan] 5 mg PO TID 04/16/19 04/16/19 History Niacin 500 mg PO DAILY 04/16/19 04/16/19 History Potassium Gluconate 99 mg PO DAILY 04/16/19 04/16/19 History Rosuvastatin [Crestor] 20 mg PO DAILY 04/16/19 04/16/19 History Ubidecarenone [Co Q-10] 200 mg PO DAILY 04/16/19 04/16/19 History metFORMIN HCL [Glucophage] 500 mg PO BID 04/16/19 04/16/19 History Allergies Allergy/AdvReac Type Severity Reaction Status Date / Time No Known Allergies Allergy Verified 04/16/19 10:30 Physical Exam Vitals: Vital Signs Temp Pulse Pulse Resp BP Pulse Ox 04/17/19 01:10 97.9 F 69 18 104/66 90 L 04/16/19 21:08 84 04/16/19 20:57 85 93 L 04/16/19 20:46 18 04/16/19 19:40 97.4 F L 91 20 156/75 92 L 04/16/19 17:19 84 04/16/19 17:09 84 04/16/19 15:00 98.7 F 87 16 117/73 93 L 04/16/19 12:17 84 04/16/19 12:07 83 04/16/19 08:42 75 04/16/19 08:26 82 92 L Intake and Output 04/16/19 04/17/19 04/17/19 22:59 06:59 14:59 Intake Total 1300 Balance 1300 Intake: Intake, IV Titration 800 Amount Sodium Chloride 0.9% 1, 800 000 ml @ 100 mls/hr IV . Q10H [facility] Rx#:[id number] Oral 500 Other: Voiding Method Toilet # Voids 1 # Bowel Movements 0 acute respiratory distress even while being on a BiPAP at a pressure of 14/7 cm of water. Asynchronous, using excessive muscle breathing, unresponsive Head exam was generally normal. There was no scleral icterus or corneal arcus. Mucous membranes were moist. Neck was supple and without jugular venous distension, thyromegaly, or carotid bruits. Carotids were easily palpable bilaterally. There was no adenopathy. Lungs sounds are diminished and the patient has diffuse rhonchi heard throughout the lung oneil bilaterally and the patient is also prolongation of the expiratory phase of breathing and scattered expiratory wheezes throughout the lung oneil Heart sounds are regular, positive S1-S2, tachycardic, sinus, no significant murmurs appreciated. Abdomen is distended. This positive tympany throughout the abdominal wall. No direct tenderness. No rebound tenderness. No guarding. Abdomen itself is firm and is quite distended. Organs cannot be accurately palpated. No bowel sounds. Examination of the extremities revealed easily palpable radial, femoral and pedal pulses. There was no cyanosis, clubbing or edema. Examination of the skin revealed no evidence of significant rashes, suspicious appearing nevi or other concerning lesions. Neurologically unresponsive, moving all 4 extremities, pupils are equal and reactive to light, not following any commands. Results - Laboratory Findings CBC and BMP: 04/15/19 22:45 04/15/19 22:45 ABG ABG pH 7.14 (7.35-7.45) L* 04/17/19 07:02 ABG pCO2 76 mmHg (35-45) H* 04/17/19 07:02 ABG pO2 102 mmHg (83-108) 04/17/19 07:02 ABG O2 Saturation 95.4 % (94-97) 04/17/19 07:02 PT/INR, D-dimer PT 10.7 sec (9.0-12.0) 04/15/19 22:45 INR 1.0 (<1.2) 04/15/19 22:45 Abnormal lab findings: Abnormal Labs 04/15/19 04/15/19 04/15/19 22:45 22:45 23:25 WBC 16.7 H Neutrophils # 13.9 H ABG pH ABG pCO2 ABG HCO3 ABG Total CO2 Sodium 134 L Glucose 109 H POC Glucose (mg/dL) Urine Protein 1+ H Urine Mucus Rare H 04/16/19 04/17/19 04/17/19 17:05 06:49 07:02 WBC Neutrophils # ABG pH 7.14 L* ABG pCO2 76 H* ABG HCO3 26 H ABG Total CO2 28 H Sodium Glucose POC Glucose (mg/dL) 122 H 204 H Urine Protein Urine Mucus - Diagnostic Findings Chest x-ray: image reviewed Assessment and Plan Plan: 1 acute hypoxic/hypercapnic respiratory failure with development of diffuse bilateral pulmonary infiltrates and a masslike consolidation in the right lower lobe. Rule out development of pneumonia/aspiration. Rule out acute pulmonary edema. Possibility of an acute lung injury/ARDS cannot be completely excluded. The patient is currently on a BiPAP at a pressure of 14/7 and his blood gases showing severe component of respiratory acidosis with a pH of 7.13 and a pCO2 of 76. 2 abdominal distention. Abdomen is quite distended and firm at this point in time and needs to be further investigated 3 abdominal pain with evidence of marked wall thickening of the cecum, possible malignancy versus colitis 4 obesity. 5 obstructive sleep apnea 6 hypertension 7 hyperlipidemia 8 Chronic back pain PLAN We'll need to intubate the patient immediately. We'll need to sedate him and put him on possibly on a combination of sedation and paralytics. Will do the necessity vent changes post intubation to improve the patient's acid-base status and oxygenation. Will need a follow-up chest x-ray, possibly a repeat CAT scan of the abdomen knowing that there is quite distention of the abdomen at this point in time. NG tube will be placed. We'll check blood work. We'll check lactate. We'll check cultures. Immediate surgical consultation. We'll continue to follow. Condition is critical at this point. I'm hadn't hours intubated this patient and stabilizing his condition. We'll continue to follow further recommendations to follow.
[2019-04-17] MEDS ORDERED: CHLORHEXIDINE GLUCONATE 15 ML CUP MUCOUS MEM ONE (07:30)
[2019-04-17 08:02] LABS: ABG Base Excess -3.1 mmol/L; ABG HCO3 25 mmol/L (21-25); ABG Oxygen Saturation 89.5 % (94-97); ABG PCO2 68 mmHg (35-45); ABG PO2 69 mmHg (83-108); ABG TCO2 27 mmol/L (19-24); Allen Test Performed? Yes
[2019-04-17 08:06] LABS: ABG PH 7.18 (7.35-7.45)
[2019-04-17] MEDS ORDERED: IOPAMIDOL-300 CONTRAST 30 ML VIAL (ORAL USE) PO PRN (08:07)
--- NOTE | 2019-04-17 08:36 | XR ---
EXAMINATION TYPE: XR chest 1V portable DATE OF EXAM: 04/17/2019 CLINICAL HISTORY: Difficulty breathing and hypoxia had to be intubated. TECHNIQUE: Single AP portable supine view of the chest is obtained. COMPARISON: Chest x-ray from earlier today. FINDINGS: There is new orogastric tube projecting below diaphragm. There is new endotracheal tube pr ojecting just past the mary into the right mainstem bronchus, advise pulling back 4 to 5 cm. There is new left subclavian central venous catheter terminating in SVC. There is persistent right basilar masslike consolidation with right hilar opacity. There is increasing left hilar and basilar opacities . Cardiac silhouette size is stable and mildly enlarged. Osseous structures are intact. IMPRESSION: 1. New endotracheal tube projects just past mary to right mainstem bronchus, advise pulling back 4 to 5 cm. 2. Mild cardiomegaly and low lung volumes with bilateral hilar edema and/or infiltrate and right basi lar consolidation all redemonstrated. Increasing left basilar infiltrate felt present. Recommendation of pulling back endotracheal tube corresponded to ICU at time of dictation via telepho ne.
[2019-04-17 08:38] LABS: Basophils % (A) 0 %; Eosinophils # (A) 0.1 k/uL (0-0.7); Eosinophils % (A) 1 %; HCT 44.2 % (39.0-53.0); HGB 14.1 gm/dL (13.0-17.5); Lymphocytes # (A) 0.5 k/uL (1.0-4.8); Lymphocytes % (A) 5 %; MCH 30.2 pg (25.0-35.0); MCHC 31.8 g/dL (31.0-37.0); MCV 94.9 fL (80.0-100.0); Mean Platelet Volume 6.5; Monocytes # (A) 0.3 k/uL (0-1.0); Monocytes % (A) 3 %; Neutrophils # (A) 8.8 k/uL (1.3-7.7); Neutrophils % (A) 91 %; Platelet Count 313 k/uL (150-450); RBC 4.66 m/uL (4.30-5.90); RDW 12.9 % (11.5-15.5); WBC 9.7 k/uL (3.8-10.6)
--- NOTE | 2019-04-17 08:39 | XR ---
Abdomen HISTORY: Distention, gastric tube placement Frontal view of the abdomen on 2 images correlated to prior abdomen 04/16/2019 There has been interval placement of an orogastric tube which is overlying the stomach in the left up per quadrant. Gas-filled loops of small and large bowel are again noted. There is no pneumoperitoneum . Calcifications are stable scattered within the pelvis. Lung bases show probable subsegmental atelec tatic changes. There are overlying cardiac leads. IMPRESSION: Interval tube placement as described. Possible underlying ileus, correlate for obstructio n and follow-up as indicated.
[2019-04-17 08:48] LABS: ALT 29 U/L (21-72); AST 13 U/L (17-59); African American GFR (CKD) >90 (>60 ml/min/1.73 sqM); Albumin 1.7 g/dL (3.5-5.0); Alkaline Phosphatase 31 U/L (38-126); Anion Gap 6 mmol/L; Blood Urea Nitrogen 10 mg/dL (9-20); Carbon Dioxide 16 mmol/L (22-30); Chloride 118 mmol/L (98-107); Glucose 115 mg/dL (74-99); Sodium 140 mmol/L (137-145); Total Bilirubin 0.3 mg/dL (0.2-1.3); Total Protein 3.5 g/dL (6.3-8.2)
[2019-04-17 08:51] LABS: Partial Thromboplastin Time 22.5 sec (22.0-30.0); Prothrombin Time 10.5 sec (9.0-12.0)
[2019-04-17 08:57] LABS: Calcium 5.1 mg/dL (8.4-10.2); Potassium 2.5 mmol/L (3.5-5.1)
[2019-04-17] MEDS: SODIUM CHLORIDE 0.9% 1,000 ML IV SCH ×3 (09:00→23:59)
[2019-04-17] MEDS ORDERED: Potassium Replacement Protocol 1 EACH MISC MISCELLANE PRN (09:08)
[2019-04-17] MEDS ORDERED: Magnesium Replacement Protocol 1 EACH MISC MISCELLANE PRN (09:09)
[2019-04-17] MEDS ORDERED: NOREPINEPHRINE 32 MG in SODIUM CHLORIDE 0.9% 218 ML IV SCH (09:15)
[2019-04-17] MEDS: IPRATROPIUM-ALBUTEROL 3 ML NEB INHALATION SCH ×5 (09:16→23:06)
[2019-04-17] MEDS: BUDESONIDE 1 MG/2 ML NEBU INHALATION SCH ×2 (09:16→19:15)
[2019-04-17] MEDS: NOREPINEPHRINE 4 MG in SODIUM CHLORIDE 0.9% 250 ML IV SCH ×2 (09:24→22:35)
--- NOTE | 2019-04-17 09:26 | PCN ---
PROCEDURE NOTE PREOPERATIVE DIAGNOSIS: Acute hypoxic respiratory failure. POSTOPERATIVE DIAGNOSIS: Acute hypoxic respiratory failure. PROCEDURE: Intubation. ENDOTRACHEAL INTUBATION: A time-out was completed verifying correct patient, procedure, site, positioning, and implant(s) or special equipment if applicable. The patient was positioned appropriately and I used #4 Mac blade and I intubated the patient by a #8 orotracheal tube was placed under direct laryngoscopy. The tube was anchored at 22 cm at the teeth. Correct placement was confirmed by presence of bilateral breath sounds without air sounds in the abdomen on auscultation. An end- tidal CO2 monitor was also used to confirm tracheal placement of the ET tube. A chest x-ray was ordered to assess for pneumothorax and verify endotracheal tube placement. The patient tolerated the procedure well and there were no complications. No bedside complications. MMODL / IJN: [id number] /
[2019-04-17] MEDS: POTASSIUM CHLORIDE 20 MEQ in WATER FOR INJECTION 1 100ML.BAG IVPB SCH ×3 (09:27→13:57)
[2019-04-17] MEDS: PROPOFOL 1,000 MG in EMPTY BAG 1 BAG IV SCH ×6 (09:30→22:33)
--- NOTE | 2019-04-17 09:32 | PCN ---
PROCEDURE NOTE TRIPLE LUMEN CATHETER PLACEMENT: Indication: Hemodynamic monitoring/Intravenous access. A time-out was completed verifying correct patient, procedure, site, positioning, and implant(s) or special equipment if applicable. The patient was placed in a dependent position appropriate for triple lumen catheter placement based on the vein to be cannulated. The patient's left shoulder was prepped and draped in sterile fashion. 1% Lidocaine was used to anesthetize the surrounding skin area. A triple lumen 9F Cordis catheter was introduced into the left subclavian vein using Seldinger technique. The catheter was threaded smoothly over the guide wire and appropriate blood return was obtained. Each lumen of the catheter was evacuated of air and flushed with sterile saline. The catheter was then sutured in place to the skin and a sterile dressing applied. Perfusion to the extremity distal to the point of catheter insertion was checked and found to be adequate. No bedside complications. MMODL / IJN: [id number] /
--- NOTE | 2019-04-17 09:35 | PCN ---
PROCEDURE NOTE ARTERIAL LINE PLACEMENT: Indications: Hemodynamic monitoring. A time-out was completed verifying correct patient, procedure, site, positioning, and implant(s) or special equipment if applicable. Ric's test was performed to ensure adequate perfusion. The patient's left wrist was prepped and draped in sterile fashion. 1% Lidocaine was used to anesthetize the area. An 18G Arrow arterial line was introduced into the left radial artery. The catheter was threaded over the guide wire and the needle was removed with appropriate pulsatile blood return. Blood loss was minimal. The catheter was then sutured in place to the skin and a sterile dressing applied. Perfusion to the extremity distal to the point of catheter insertion was checked and found to be adequate. No complications. MMODL / IJN: [id number] /
[2019-04-17] MEDS ORDERED: IV FLUID CONTINUATION 1,000 ML IV ONE (10:01)
[2019-04-17] MEDS: LISINOPRIL 20 MG TAB PO SCH (10:24)
[2019-04-17] MEDS: CITALOPRAM HYDROBROMIDE 20 MG TAB PO SCH (10:24)
--- NOTE | 2019-04-17 11:12 | P.PN ---
Progress Note - Text Progress Note Date: 04/17/19 Attempts were made to have the patient ready for colonoscopy. The patient was examined. There was a large amount of dark brown stool. His prep was inadequate for colonoscopy this time. He'll undergo computed tomography scan of the abdomen.
[2019-04-17] MEDS: INSULIN ASPART (NovoLOG) 100 UNIT/ML VIAL SQ SCH ×4 (11:46→23:43)
[2019-04-17] MEDS: PANTOPRAZOLE 40 MG/10 ML VIAL IV SCH (11:50)
[2019-04-17] MEDS: HEPARIN SODIUM,PORCINE 5,000 UNIT/ML 1 ML VIAL SQ SCH ×2 (11:50→20:43)
[2019-04-17] MEDS: CHLORHEXIDINE GLUCONATE 15 ML CUP MUCOUS MEM SCH ×2 (11:50→20:43)
[2019-04-17] MEDS: MAGNESIUM SULFATE-D5W PMX 1 GM in DEXTROSE/WATER 1 100ML.BAG IVPB SCH ×3 (11:51→14:14)
[2019-04-17 11:56] LABS: Glucose,Whole Blood 134 mg/dL (75-99)
[2019-04-17] MEDS ORDERED: CALCIUM GLUCONATE 1 GM in SODIUM CHLORIDE 0.9% 100 ML IVPB ONE (13:00)
--- NOTE | 2019-04-17 13:10 | P.PN ---
Subjective Progress Note Date: 04/17/19 CHIEF COMPLAINT: Abdominal pain HISTORY OF PRESENT ILLNESS: Patient developed respiratory distress overnight and was transferred to intensive care unit. He is currently intubated and sedated. Colonoscopy was to be performed at the bedside today the patient had a large amount of brown liquid stool and colonoscopy was unable to be performed. PHYSICAL EXAM: VITAL SIGNS: Reviewed. GENERAL: [id number] on mechanical ventilation HEENT: ET tube noted. No sclera icterus. Extraocular movements grossly intact. Moist buccal mucosa. Head is atraumatic, normocephalic. ABDOMEN: Firm. Distended. Unable to assess pain upon palpation secondary to sedation and intubation NEUROLOGIC: Patient sedated on mechanical ventilation ASSESSMENT: 1. Abdominal pain 2. Marked wall thickening of cecum, possible malignancy versus nonspecific colitis PLAN: Ventilator management per Dr. Federico STILES to LIS Bedside colonoscopy unable to be performed secondary to inadequate bowel prep Obtain CT abdomen and pelvis with oral contrast Further recommendations pending results of computed tomography scan Nurse practitioner note has been reviewed by physician. Signing provider agrees with the documented findings, assessment, and plan of care. Objective - Vital Signs Vital signs: Vital Signs Temp 100.0 F H 04/17/19 12:00 Pulse 96 04/17/19 12:15 Resp 26 H 04/17/19 12:15 BP 95/72 04/17/19 12:15 Pulse Ox 99 04/17/19 12:15 Intake & Output 04/16/19 04/17/19 04/17/19 18:59 06:59 18:59 Intake Total 1090 1300 2900 Output Total 700 850 Balance 2199 150 4151 Intake: IV 2900 0.9 2000 Magnesium Sulfate-D5w Pmx 100 1 gm In Dextrose/Water 1 100ml.bag @ 100 mls/hr IVPB Q1H [facility] Rx#: [id number] Potassium Chloride 20 meq 200 In Water For Injection 1 100ml.bag @ 50 mls/hr IVPB Q2H [facility] Rx#: [id number] Sodium Chloride 0.9% 1, 600 000 ml @ 150 mls/hr IV . Q6H40M [facility] Rx#:[id number] Intake, IV Titration 850 800 Amount Levofloxacin 500Mg-D5w 100 Pmx 500 mg In Dextrose/ Water 1 100ml.bag @ 100 mls/hr IVPB Q24H [facility] Rx#: [id number] Piperacillin-Tazobactam 3 100 .375 gm In Sodium Chloride 0.9% 100 ml @ 25 mls/hr IVPB Q8HR [facility] Rx# :[id number] Sodium Chloride 0.9% 1, 650 800 000 ml @ 150 mls/hr IV . Q6H40M [facility] Rx#:[id number] Oral 240 500 Output: Gastric Drainage 500 Urine 700 350 Uretheral (Goldberg) 700 Other: Voiding Method Toilet # Voids 1 # Bowel Movements 0 1 ABP, PAP, CO, CI - Last Documented Arterial Blood Pressure 122/61 - Labs CBC & Chem 7: 04/17/19 08:07 04/17/19 08:07 Labs: Abnormal Lab Results - Last 24 Hours (Table) 04/16/19 04/17/19 04/17/19 Range/Units 17:05 06:49 07:02 Neutrophils # (1.3-7.7) k/uL Lymphocytes # (1.0-4.8) k/uL ABG pH 7.14 L* (7.35-7.45) ABG pCO2 76 H* (35-45) mmHg ABG pO2 (83-108) mmHg ABG HCO3 26 H (21-25) mmol/L ABG Total CO2 28 H (19-24) mmol/L ABG O2 Saturation (94-97) % ABG Lactic Acid (0.5-1.6) mmol/L Potassium (3.5-5.1) mmol/L Chloride (98-107) mmol/L Carbon Dioxide (22-30) mmol/L Creatinine (0.66-1.25) mg/dL Glucose (74-99) mg/dL POC Glucose (mg/dL) 122 H 204 H (75-99) mg/dL Calcium (8.4-10.2) mg/dL Magnesium (1.6-2.3) mg/dL AST (17-59) U/L Alkaline Phosphatase (38-126) U/L Total Protein (6.3-8.2) g/dL Albumin (3.5-5.0) g/dL 04/17/19 04/17/19 04/17/19 Range/Units 07:56 08:07 08:07 Neutrophils # 8.8 H (1.3-7.7) k/uL Lymphocytes # 0.5 L (1.0-4.8) k/uL ABG pH 7.18 L* (7.35-7.45) ABG pCO2 68 H (35-45) mmHg ABG pO2 69 L (83-108) mmHg ABG HCO3 (21-25) mmol/L ABG Total CO2 27 H (19-24) mmol/L ABG O2 Saturation 89.5 L (94-97) % ABG Lactic Acid (0.5-1.6) mmol/L Potassium 2.5 L* (3.5-5.1) mmol/L Chloride 118 H (98-107) mmol/L Carbon Dioxide 16 L (22-30) mmol/L Creatinine 0.61 L (0.66-1.25) mg/dL Glucose 115 H (74-99) mg/dL POC Glucose (mg/dL) (75-99) mg/dL Calcium 5.1 L* (8.4-10.2) mg/dL Magnesium 1.0 L (1.6-2.3) mg/dL AST 13 L (17-59) U/L Alkaline Phosphatase 31 L (38-126) U/L Total Protein 3.5 L (6.3-8.2) g/dL Albumin 1.7 L (3.5-5.0) g/dL 04/17/19 04/17/19 Range/Units 08:07 11:44 Neutrophils # (1.3-7.7) k/uL Lymphocytes # (1.0-4.8) k/uL ABG pH (7.35-7.45) ABG pCO2 (35-45) mmHg ABG pO2 (83-108) mmHg ABG HCO3 (21-25) mmol/L ABG Total CO2 (19-24) mmol/L ABG O2 Saturation (94-97) % ABG Lactic Acid 1.7 H (0.5-1.6) mmol/L Potassium (3.5-5.1) mmol/L Chloride (98-107) mmol/L Carbon Dioxide (22-30) mmol/L Creatinine (0.66-1.25) mg/dL Glucose (74-99) mg/dL POC Glucose (mg/dL) 134 H (75-99) mg/dL Calcium (8.4-10.2) mg/dL Magnesium (1.6-2.3) mg/dL AST (17-59) U/L Alkaline Phosphatase (38-126) U/L Total Protein (6.3-8.2) g/dL Albumin (3.5-5.0) g/dL Microbiology - Last 24 Hours (Table) 04/15/19 22:45 Blood Culture - Preliminary Blood No Growth after 24 hours
--- NOTE | 2019-04-17 15:08 | CT ---
EXAMINATION TYPE: CT abdomen pelvis wo con DATE OF EXAM: 04/17/2019 HISTORY: Abdominal distention CT DLP: 1188.4 mGycm. Automated Exposure Control for Dose Reduction was Utilized. TECHNIQUE: CT scan of the abdomen and pelvis is performed with oral but without IV contrast. COMPARISON: CT abdomen and pelvis from 2 days ago FINDINGS: Within the limitations of a non-contrast study, the following observations are made. LUNG BASES: There are new small bilateral pleural effusions. There is new associated bibasilar consol idation and/or atelectasis. LIVER/GB: Liver remains diffusely low dense consistent with fatty infiltration. New dependent density in gallbladder is consistent with vicarious excretion of contrast from recent contrast enhanced CT PANCREAS: No significant abnormality is seen. SPLEEN: No significant abnormality is seen. ADRENALS: No significant abnormality is seen. KIDNEYS: No renal stones or hydronephrosis. Goldberg catheter is now present in bladder with decompressi on BOWEL: Oral contrast is seen in nondistended stomach. There is mild contrast filled prominence of duo denal sweep. There are prominent contrast and fluid-filled small bowel loops with air-fluid levels. T here is fluid and slightly prominent colon along the periphery with air-fluid level and prominent rec he. Redundancy of sigmoid colon is present with poor distention of left and sigmoid colon. Some dive rticula in sigmoid colon are redemonstrated. Suspicious moderate wall thickening base of cecum lacy l image 38 remains present. GENITAL ORGANS: No gross abnormality seen. LYMPH NODES: No greater than 1cm abdominal or pelvic lymph nodes are appreciated. OSSEOUS STRUCTURES: S-shaped scoliotic curvature with multilevel spurring and disc space narrowing in the thoracolumbar spine. Facet arthropathy lower lumbar levels. There is a hemangioma involving T10 and T11 vertebra. Moderate disc space narrowing both hip joints.. OTHER: No significant additional abnormality is seen. IMPRESSION: No new ascites. New small bilateral pleural effusions with associated compressive atelect asis and/or consolidation. Increasing dilated small and large bowel loops with air-fluid levels sugge sts developing ileus and/or diarrhea, correlate clinically.
[2019-04-17] MEDS: LEVOFLOXACIN 500MG-D5W PMX 500 MG in DEXTROSE/WATER 1 100ML.BAG IVPB SCH (15:30)
[2019-04-17 15:47] LABS: Amorphous Sediment,Urine Rare /hpf; Appearance,Urine Cloudy (Clear); Bilirubin,Urine Negative (Negative); Blood,Urine Moderate (Negative); Color,Urine Yellow; Glucose,Urine (UA) Negative (Negative); Hyaline Casts,Urine 23 /lpf (0-2); Ketones,Urine Negative (Negative); Leukocyte Esterase,Urine Negative (Negative); Mucus,Urine Few /hpf; Nitrite,Urine Negative (Negative); PH, Urine 5.5 (5.0-8.0); Protein,Urine Trace (Negative); RBC,Urine >182 /hpf (0-5); Specific Gravity,Urine 1.016 (1.001-1.035)
--- NOTE | 2019-04-17 16:36 | P.PN ---
Subjective Progress Note Date: 04/17/19 This is a 69-year-old male patient of Dr. Gallardo with past medical history of hypertension, hyperlipidemia, COPD, gastroesophageal reflux disease, remote history of tobacco use, obstructive sleep apnea not using CPAP. Patient complains of sudden onset of abdominal pain starting on Tuesday. He also complains of bloating in the abdomen for the past couple months as well as weight loss of 5-10 pounds over the past 3 months. He complains of decreased appetite. He states he has had occasional burgundy stools. He denies any black stools, no diarrhea, no vomiting. He denies any urinary symptoms. Patient states he had his last colonoscopy in 2013 which was normal. Patient presents to [facility] emergency [facility] for evaluation. Abdominal x-ray shows no acute findings. CAT scan of the abdomen and pelvis showed marked thickening of the cecum concerning for malignancy. A nonspecific colitis is not excluded but felt to be less likely. Thickening in the gastric rugae which may be secondary to under distention versus a nonspecific gastritis. EKG is a sinus tachycardia with right bundle branch block, left AFB. WBC 16.7, hemoglobin 14.7, creatinine 0.74. Troponin negative. Amylase and lipase, liver function tests all normal. Urinalysis was clear with 1+ protein. Patient was admitted to the [facility] floor, consult with Dr. Givens, IV fluids, pain medications and Zofran. Plan is for colonoscopy tomorrow. 04/17: Overnight, patient developed acute respiratory failure and was transferred to the intensive care unit and patient placed on BiPAP, currently under care of Dr. Caballero. Patient subsequently intubated and placed on mechanical ventilation. Echocardiogram from yesterday reveals EF 55-60% with moderate concentric left ventricle hypertrophy, trace mitral regurgitation, trace tricuspid regurgitation, no pulmonary hypertension. No pericardial effusion. Chest x-ray shows new right basilar and pneumonic consolidation with diminished inspiration background right hilar and left basilar more patchy edema and or infiltrate felt present. Repeat chest x-ray shows new endotracheal tube with placement described with recommendations to pullback. Mild cardiomegaly and low lung volumes with bilateral hilar edema and/or infiltrate and right basilar consolidation all redemonstrated increasing left basilar infiltrate felt present. Abdomen was more distended and NG tube was placed. Immediate surgical consultation was requested by Dr. Caballero. Dr. Givens attempted bedside colonoscopy but patient was not properly prepped. He is scheduled for CAT scan of the abdomen and pelvis this afternoon at 2:30. NG tube is in place with bile color returned. Family members are in the waiting room and have been updated. Objective - Vital Signs Vital signs: Vital Signs Temp 97.9 F 04/17/19 01:10 Pulse 116 H 04/17/19 09:19 Resp 28 H 04/17/19 06:05 BP 104/66 04/17/19 01:10 Pulse Ox 90 L 04/17/19 01:10 Intake & Output 04/16/19 04/17/19 04/17/19 18:59 06:59 18:59 Intake Total 1090 1300 Output Total 700 Balance 1090 600 Intake: Intake, IV Titration 850 800 Amount Levofloxacin 500Mg-D5w 100 Pmx 500 mg In Dextrose/ Water 1 100ml.bag @ 100 mls/hr IVPB Q24H ELA Rx#: [id number] Piperacillin-Tazobactam 3 100 .375 gm In Sodium Chloride 0.9% 100 ml @ 25 mls/hr IVPB Q8HR ELA Rx# :[id number] Sodium Chloride 0.9% 1, 650 800 000 ml @ 100 mls/hr IV . Q10H ELA Rx#:[id number] Oral 240 500 Output: Urine 700 Uretheral (Goldberg) 700 Other: Voiding Method Toilet # Voids 1 # Bowel Movements 0 - Exam Review of Systems All systems: Unable to be obtained due to intubation Physical exam: Gen: This is an obese 69-year-old male. Patient is resting in ICU bed and appears to be comfortable area he is intubated and on mechanical ventilation. HEENT: Head is atraumatic, normocephalic. Pupils equal, round. Sclerae is anicteric. NECK: Supple. No JVD. No lymphadenopathy. No thyromegaly. LUNGS: Clear to auscultation. No wheezes or rhonchi. No intercostal retractions. HEART: Regular rate and rhythm. No murmur. ABDOMEN: Distended Bowel sounds are present. No masses. No tenderness. EXTREMITIES: No pedal edema. No calf tenderness. NEUROLOGICAL: Patient is on mechanical ventilation.. - Labs CBC & Chem 7: 04/17/19 08:07 04/17/19 08:07 Labs: Abnormal Lab Results - Last 24 Hours (Table) 04/16/19 04/17/19 04/17/19 Range/Units 17:05 06:49 07:02 Neutrophils # (1.3-7.7) k/uL Lymphocytes # (1.0-4.8) k/uL ABG pH 7.14 L* (7.35-7.45) ABG pCO2 76 H* (35-45) mmHg ABG pO2 (83-108) mmHg ABG HCO3 26 H (21-25) mmol/L ABG Total CO2 28 H (19-24) mmol/L ABG O2 Saturation (94-97) % ABG Lactic Acid (0.5-1.6) mmol/L Potassium (3.5-5.1) mmol/L Chloride (98-107) mmol/L Carbon Dioxide (22-30) mmol/L Creatinine (0.66-1.25) mg/dL Glucose (74-99) mg/dL POC Glucose (mg/dL) 122 H 204 H (75-99) mg/dL Calcium (8.4-10.2) mg/dL Magnesium (1.6-2.3) mg/dL AST (17-59) U/L Alkaline Phosphatase (38-126) U/L Total Protein (6.3-8.2) g/dL Albumin (3.5-5.0) g/dL 04/17/19 04/17/19 04/17/19 Range/Units 07:56 08:07 08:07 Neutrophils # 8.8 H (1.3-7.7) k/uL Lymphocytes # 0.5 L (1.0-4.8) k/uL ABG pH 7.18 L* (7.35-7.45) ABG pCO2 68 H (35-45) mmHg ABG pO2 69 L (83-108) mmHg ABG HCO3 (21-25) mmol/L ABG Total CO2 27 H (19-24) mmol/L ABG O2 Saturation 89.5 L (94-97) % ABG Lactic Acid (0.5-1.6) mmol/L Potassium 2.5 L* (3.5-5.1) mmol/L Chloride 118 H (98-107) mmol/L Carbon Dioxide 16 L (22-30) mmol/L Creatinine 0.61 L (0.66-1.25) mg/dL Glucose 115 H (74-99) mg/dL POC Glucose (mg/dL) (75-99) mg/dL Calcium 5.1 L* (8.4-10.2) mg/dL Magnesium 1.0 L (1.6-2.3) mg/dL AST 13 L (17-59) U/L Alkaline Phosphatase 31 L (38-126) U/L Total Protein 3.5 L (6.3-8.2) g/dL Albumin 1.7 L (3.5-5.0) g/dL 04/17/19 Range/Units 08:07 Neutrophils # (1.3-7.7) k/uL Lymphocytes # (1.0-4.8) k/uL ABG pH (7.35-7.45) ABG pCO2 (35-45) mmHg ABG pO2 (83-108) mmHg ABG HCO3 (21-25) mmol/L ABG Total CO2 (19-24) mmol/L ABG O2 Saturation (94-97) % ABG Lactic Acid 1.7 H (0.5-1.6) mmol/L Potassium (3.5-5.1) mmol/L Chloride (98-107) mmol/L Carbon Dioxide (22-30) mmol/L Creatinine (0.66-1.25) mg/dL Glucose (74-99) mg/dL POC Glucose (mg/dL) (75-99) mg/dL Calcium (8.4-10.2) mg/dL Magnesium (1.6-2.3) mg/dL AST (17-59) U/L Alkaline Phosphatase (38-126) U/L Total Protein (6.3-8.2) g/dL Albumin (3.5-5.0) g/dL Microbiology - Last 24 Hours (Table) 04/15/19 22:45 Blood Culture - Preliminary Blood No Growth after 24 hours Assessment and Plan Plan: 1. Abdominal pain, possible colitis, possible malignancy of the cecum. Consult with Dr. Givens. Continue IV fluids, Levaquin and Zosyn 2. Hypertension. Vasotec IV as needed for systolic blood pressure greater than 160. (lisinopril 40 mg daily, hydrochlorothiazide 25 mg daily, verapamil 240 mg daily on hold). Patient is currently hypotensive. Norepinephrine to be weaned off. 3. Hyperlipidemia. Crestor, niacin and Lopid on hold. 4. Gastroesophageal reflux disease. Continue Protonix. 5. Probable COPD. Continue DuoNeb treatments every 4 hours as needed. 6. Diabetes mellitus type 2, insulin requiring, uncontrolled with hyperglycemia. Metformin on hold. NovoLog scale before meals and at bedtime. Levemir 60 units daily, NovoLog scheduled 30 units with breakfast, 20 units with lunch, 30 units with supper. 7. Generalized anxiety disorder. Continue citalopram 40 mg daily. 8. DVT prophylaxis. Heparin subcu. 9. Acute hypoxic and hypercapnic respiratory failure with bilateral pulmonary infiltrates and masslike consolidation in the right lower lobe. Rule out pneumonia and aspiration. Rule out acute pulmonary edema. Possible acute lung injury ARDS not excluded. Patient has been intubated and placed on mechanical ventilation management by Dr. Caballero. 10. Abdominal distention worsening since admission. NG tube placed. Surgical evaluation. Repeat CAT scan of the abdomen and pelvis ordered. Unsuccessful colonoscopy due to poor bowel prep. 11. Obstructive sleep apnea noncompliant with CPAP. Discharge plan: To be determined. Impression and plan of care have been directed as dictated by the signing physician. Destini Navarro nurse practitioner acting as scribe for signing physician.
[2019-04-17 17:30] LABS: Glucose,Whole Blood 147 mg/dL (75-99)
[2019-04-17 19:03] LABS: Magnesium 2.4 mg/dL (1.6-2.3); Potassium 4.6 mmol/L (3.5-5.1)
[2019-04-17 19:08] LABS: ABG Base Excess -1.7 mmol/L; ABG HCO3 24 mmol/L (21-25); ABG Oxygen Saturation 97.8 % (94-97); ABG PCO2 48 mmHg (35-45); ABG PH 7.32 (7.35-7.45); ABG PO2 103 mmHg (83-108); ABG TCO2 26 mmol/L (19-24); Allen Test Performed? Yes
[2019-04-17 20:53] LABS: Glucose,Whole Blood 116 mg/dL (75-99)
[2019-04-17] MEDS: NOREPINEPHRINE 32 MG in SODIUM CHLORIDE 0.9% 218 ML IV SCH (23:00)
[2019-04-17 23:41] LABS: Glucose,Whole Blood 145 mg/dL (75-99)
[2019-04-18] MEDS: PROPOFOL 1,000 MG in EMPTY BAG 1 BAG IV SCH ×9 (00:16→21:03)
[2019-04-18] MEDS: IPRATROPIUM-ALBUTEROL 3 ML NEB INHALATION SCH ×6 (03:05→23:26)
[2019-04-18 04:26] LABS: Basophils % (A) 0 %; Eosinophils # (A) 0.1 k/uL (0-0.7); Eosinophils % (A) 1 %; HCT 36.3 % (39.0-53.0); HGB 11.8 gm/dL (13.0-17.5); Lymphocytes % (A) 11 %; MCH 30.5 pg (25.0-35.0); MCHC 32.4 g/dL (31.0-37.0); Mean Platelet Volume 6.7; Monocytes # (A) 0.5 k/uL (0-1.0); Monocytes % (A) 5 %; Neutrophils % (A) 82 %; Platelet Count 258 k/uL (150-450); RBC 3.86 m/uL (4.30-5.90); WBC 9.8 k/uL (3.8-10.6)
[2019-04-18] MEDS: PIPERACILLIN-TAZOBACTAM 3.375 GM in SODIUM CHLORIDE 0.9% 100 ML IVPB SCH ×3 (04:33→21:01)
[2019-04-18 04:37] LABS: ALT 25 U/L (21-72); AST 18 U/L (17-59); African American GFR (CKD) >90 (>60 ml/min/1.73 sqM); Albumin 2.7 g/dL (3.5-5.0); Alkaline Phosphatase 47 U/L (38-126); Anion Gap 6 mmol/L; Blood Urea Nitrogen 14 mg/dL (9-20); Calcium 8.1 mg/dL (8.4-10.2); Carbon Dioxide 24 mmol/L (22-30); Chloride 102 mmol/L (98-107); Glucose 138 mg/dL (74-99); Magnesium 2.3 mg/dL (1.6-2.3); Phosphorus 3.1 mg/dL (2.5-4.5); Potassium 4.2 mmol/L (3.5-5.1); Sodium 132 mmol/L (137-145); Total Protein 5.1 g/dL (6.3-8.2)
[2019-04-18 05:08] LABS: ABG Base Excess -2.3 mmol/L; ABG HCO3 24 mmol/L (21-25); ABG Oxygen Saturation 98.8 % (94-97); ABG PCO2 46 mmHg (35-45); ABG PH 7.32 (7.35-7.45); ABG PO2 150 mmHg (83-108); ABG TCO2 25 mmol/L (19-24); Allen Test Performed? Yes
[2019-04-18] MEDS: INSULIN ASPART (NovoLOG) 100 UNIT/ML VIAL SQ SCH ×3 (05:29→18:29)
[2019-04-18] MEDS: SODIUM CHLORIDE 0.9% 1,000 ML IV SCH ×3 (05:30→21:02)
[2019-04-18 05:40] LABS: Glucose,Whole Blood 139 mg/dL (75-99)
[2019-04-18] MEDS ORDERED: VANCOMYCIN IV PER PHARMACY 1 EACH MISC MISCELLANE PRN (08:04)
[2019-04-18 08:15] LABS: ABG PH 7.14 (7.35-7.45)
[2019-04-18] MEDS: BUDESONIDE 1 MG/2 ML NEBU INHALATION SCH ×2 (08:15→20:24)
[2019-04-18] MEDS: CITALOPRAM HYDROBROMIDE 20 MG TAB PO SCH (08:42)
[2019-04-18] MEDS: LISINOPRIL 20 MG TAB PO SCH (08:43)
--- NOTE | 2019-04-18 08:54 | XR ---
EXAMINATION TYPE: XR chest 1V portable DATE OF EXAM: 04/18/2019 COMPARISON: 04/17/2019 HISTORY: Pain TECHNIQUE: Single frontal view of the chest is obtained. FINDINGS: Bilateral consolidation and pleural effusion. ET NG tube and central line noted. No pneumo thorax. Interstitial pattern seen. IMPRESSION: Bilateral infiltrate and pleural effusion are stable. Correlate for pneumonia versus pul monary edema.
[2019-04-18] MEDS: HEPARIN SODIUM,PORCINE 5,000 UNIT/ML 1 ML VIAL SQ SCH ×2 (09:14→21:03)
[2019-04-18] MEDS: CHLORHEXIDINE GLUCONATE 15 ML CUP MUCOUS MEM SCH ×2 (09:14→21:03)
[2019-04-18] MEDS: PANTOPRAZOLE 40 MG/10 ML VIAL IV SCH (09:14)
[2019-04-18] MEDS: VANCOMYCIN 2,000 MG in SODIUM CHLORIDE 0.9% 500 ML 500 ML IVPB SCH ×2 (10:59→21:05)
[2019-04-18 12:29] LABS: Glucose,Whole Blood 117 mg/dL (75-99)
--- NOTE | 2019-04-18 14:03 | P.PN ---
Subjective Progress Note Date: 04/18/19 On today's evaluation of 04/18/2019 I'm seeing this patient for a follow-up. The patient remains intubated on a mechanical ventilator. He is was sedated with propofol running at 70 g per KG per minute. His symptoms the mechanical ventilator. He remains an assist-control mode of ventilation and the patient is currently on a mechanical ventilator with assist control mode at the rate of 26 with a tidal volume of 450 and FiO2 of 60% and PEEP of 12. The morning blood gases showed a pH of 7.32 with a pCO2 of 46 and pO2 of 150. Based on that FiO2 is up from 60% down to 40%. The chest x-ray showing dense consolidation of the lung bases bilaterally. Cultures of been sent including sputum and blood cultures. The sputum cultures still pending. The blood culture showed gram- positive cocci in clusters. A dose of vancomycin was given and this will ultimately turned out to be a contaminant probably staph epidermidis. The patient has an NG tube in place. Output from the NG tube is diminished for now and it's in the order of 300 mL over the past 8-12 hours. Hemodynamically, the patient was resuscitated IV fluids. The patient is receiving normal saline at rate of 150 mL an hour. Pressors have been weaned off and discontinued earlier this morning. The patient is producing his own urine output without any major difficulties. White cell count is at 9.8. Hemoglobin is at 11.8. The renal function is normal for now. Rest of the electrolytes are also within normal limits. The patient's abdomen is less distended. He is extensively overnight and the patient produced large amount of bowel material. He remains on IV Zosyn. No fever. No other significant events overnight for now. I had a lengthy discussion with the patient's family. I was informed that they want alternative surgeon which will be Dr. Aranda . Otherwise, no other significant events overnight. The patient is resting comfortably in bed. Family has been informed of the above-mentioned changes. The most recent lactic gas done from yesterday was down to 1.4. Objective - Vital Signs Vital signs: Vital Signs Temp 98.1 F 04/18/19 12:00 Pulse 63 04/18/19 13:00 Resp 26 H 04/18/19 13:00 BP 98/63 04/18/19 13:00 Pulse Ox 96 04/18/19 13:00 Intake & Output 04/17/19 04/18/19 04/18/19 18:59 06:59 18:59 Intake Total 5949.229 3952.797 1670.475 Output Total 2130 945 400 Balance 3819.229 3007.797 1270.475 Weight 118.1 kg Intake: IV 4400 2192 1469 0.9 2000 42 18 Levofloxacin 500Mg-D5w 100 Pmx 500 mg In Dextrose/ Water 1 100ml.bag @ 100 mls/hr IVPB Q24H ELA Rx#: [id number] Magnesium Sulfate-D5w Pmx 300 1 gm In Dextrose/Water 1 100ml.bag @ 100 mls/hr IVPB Q1H ELA Rx#: [id number] Piperacillin-Tazobactam 3 100 200 50 .375 gm In Sodium Chloride 0.9% 100 ml @ 25 mls/hr IVPB Q8H ELA Rx#: [id number] Potassium Chloride 20 meq 400 In Water For Injection 1 100ml.bag @ 50 mls/hr IVPB Q2H ELA Rx#: [id number] Sodium Chloride 0.9% 1, 1500 1950 900 000 ml @ 150 mls/hr IV . Q6H40M ELA Rx#:[id number] Vancomycin 2,000 mg In 501 Sodium Chloride 0.9% 500 ml 500 ml @ 167 mls/hr IVPB Q12HR ELA Rx#: [id number] Intake, IV Titration 349.229 560.797 201.475 Amount Norepinephrine 32 mg In 21.629 1.475 Sodium Chloride 0.9% 218 ml @ 0.05 MCG/KG/MIN 2. 573 mls/hr IV .Q24H ELA Rx#:[id number] Norepinephrine 4 mg In 77.437 34.503 Sodium Chloride 0.9% 250 ml @ 0.05 MCG/KG/MIN 20. 911 mls/hr IV .Q12H9M ELA Rx#:[id number] Propofol 1,000 mg In 271.792 504.665 200 Empty Bag 1 bag @ Titrate IV .Q0M ELA Rx#: [id number] Oral 1200 1200 Output: Gastric Drainage 1350 250 Urine 780 695 400 Other: Voiding Method Indwelling Catheter Indwelling Catheter # Bowel Movements 1 1 1 ABP, PAP, CO, CI - Last Documented Arterial Blood Pressure 102/55 - Exam Gen. appearance, comfortable intubated sedated orogastric and aortic tube are both in place. Head exam was generally normal. There was no scleral icterus or corneal arcus. Mucous membranes were moist. Neck was supple and without jugular venous distension, thyromegaly, or carotid bruits. Carotids were easily palpable bilaterally. There was no adenopathy. The patient subclavian triple-lumen catheter on the left Lungs were clear to auscultation and percussion, and with normal diaphragmatic excursion. No wheezes or rales were noted. Scattered rhonchi heard throughout the lung oneil bilaterally and scattered expiratory wheeze Cardiac exam revealed the PMI to be normally situated and sized. The rhythm was regular and no extrasystoles were noted during several minutes of auscultation. The first and second heart sounds were normal and physiologic splitting of the second heart sound was noted. There were no murmurs, rubs, clicks, or gallops. Abdomen is soft. Nondistended. No direct tenderness rebound tensile guarding at this point in time. Bowel sounds are hypoactive at the present. Examination of the extremities revealed easily palpable radial, femoral and pedal pulses. There was no cyanosis, clubbing or edema. Neurologically the patient is sedated however she can easily the sedation and he withdraws to painful stimulation. - Labs CBC & Chem 7: 04/18/19 04:10 04/18/19 04:10 Labs: Abnormal Lab Results - Last 24 Hours (Table) 04/17/19 04/17/19 04/17/19 Range/Units 07:02 15:20 17:19 RBC (4.30-5.90) m/uL Hgb (13.0-17.5) gm/dL Hct (39.0-53.0) % Neutrophils # (1.3-7.7) k/uL ABG pH 7.14 L* (7.35-7.45) ABG pCO2 76 H* (35-45) mmHg ABG pO2 (83-108) mmHg ABG Total CO2 (19-24) mmol/L ABG O2 Saturation (94-97) % Sodium (137-145) mmol/L Glucose (74-99) mg/dL POC Glucose (mg/dL) 147 H (75-99) mg/dL Calcium (8.4-10.2) mg/dL Magnesium (1.6-2.3) mg/dL Total Protein (6.3-8.2) g/dL Albumin (3.5-5.0) g/dL TSH (0.465-4.680) mIU/L Urine Protein Trace H (Negative) Urine Blood Moderate H (Negative) Urine RBC >182 H (0-5) /hpf Amorphous Sediment Rare H (None) /hpf Hyaline Casts 23 H (0-2) /lpf Urine Mucus Few H (None) /hpf 04/17/19 04/17/19 04/17/19 Range/Units 18:44 19:03 20:41 RBC (4.30-5.90) m/uL Hgb (13.0-17.5) gm/dL Hct (39.0-53.0) % Neutrophils # (1.3-7.7) k/uL ABG pH 7.32 L (7.35-7.45) ABG pCO2 48 H (35-45) mmHg ABG pO2 (83-108) mmHg ABG Total CO2 26 H (19-24) mmol/L ABG O2 Saturation 97.8 H (94-97) % Sodium (137-145) mmol/L Glucose (74-99) mg/dL POC Glucose (mg/dL) 116 H (75-99) mg/dL Calcium (8.4-10.2) mg/dL Magnesium 2.4 H (1.6-2.3) mg/dL Total Protein (6.3-8.2) g/dL Albumin (3.5-5.0) g/dL TSH (0.465-4.680) mIU/L Urine Protein (Negative) Urine Blood (Negative) Urine RBC (0-5) /hpf Amorphous Sediment (None) /hpf Hyaline Casts (0-2) /lpf Urine Mucus (None) /hpf 04/17/19 04/18/19 04/18/19 Range/Units 23:30 04:10 04:10 RBC 3.86 L (4.30-5.90) m/uL Hgb 11.8 L (13.0-17.5) gm/dL Hct 36.3 L (39.0-53.0) % Neutrophils # 8.0 H (1.3-7.7) k/uL ABG pH (7.35-7.45) ABG pCO2 (35-45) mmHg ABG pO2 (83-108) mmHg ABG Total CO2 (19-24) mmol/L ABG O2 Saturation (94-97) % Sodium 132 L (137-145) mmol/L Glucose 138 H (74-99) mg/dL POC Glucose (mg/dL) 145 H (75-99) mg/dL Calcium 8.1 L (8.4-10.2) mg/dL Magnesium (1.6-2.3) mg/dL Total Protein 5.1 L (6.3-8.2) g/dL Albumin 2.7 L (3.5-5.0) g/dL TSH (0.465-4.680) mIU/L Urine Protein (Negative) Urine Blood (Negative) Urine RBC (0-5) /hpf Amorphous Sediment (None) /hpf Hyaline Casts (0-2) /lpf Urine Mucus (None) /hpf 04/18/19 04/18/19 04/18/19 Range/Units 04:10 05:03 05:29 RBC (4.30-5.90) m/uL Hgb (13.0-17.5) gm/dL Hct (39.0-53.0) % Neutrophils # (1.3-7.7) k/uL ABG pH 7.32 L (7.35-7.45) ABG pCO2 46 H (35-45) mmHg ABG pO2 150 H (83-108) mmHg ABG Total CO2 25 H (19-24) mmol/L ABG O2 Saturation 98.8 H (94-97) % Sodium (137-145) mmol/L Glucose (74-99) mg/dL POC Glucose (mg/dL) 139 H (75-99) mg/dL Calcium (8.4-10.2) mg/dL Magnesium (1.6-2.3) mg/dL Total Protein (6.3-8.2) g/dL Albumin (3.5-5.0) g/dL TSH 0.244 L (0.465-4.680) mIU/L Urine Protein (Negative) Urine Blood (Negative) Urine RBC (0-5) /hpf Amorphous Sediment (None) /hpf Hyaline Casts (0-2) /lpf Urine Mucus (None) /hpf 04/18/19 Range/Units 12:17 RBC (4.30-5.90) m/uL Hgb (13.0-17.5) gm/dL Hct (39.0-53.0) % Neutrophils # (1.3-7.7) k/uL ABG pH (7.35-7.45) ABG pCO2 (35-45) mmHg ABG pO2 (83-108) mmHg ABG Total CO2 (19-24) mmol/L ABG O2 Saturation (94-97) % Sodium (137-145) mmol/L Glucose (74-99) mg/dL POC Glucose (mg/dL) 117 H (75-99) mg/dL Calcium (8.4-10.2) mg/dL Magnesium (1.6-2.3) mg/dL Total Protein (6.3-8.2) g/dL Albumin (3.5-5.0) g/dL TSH (0.465-4.680) mIU/L Urine Protein (Negative) Urine Blood (Negative) Urine RBC (0-5) /hpf Amorphous Sediment (None) /hpf Hyaline Casts (0-2) /lpf Urine Mucus (None) /hpf Microbiology - Last 24 Hours (Table) 04/17/19 08:07 Blood Culture Gram Stain - Preliminary Blood Blood Culture - Preliminary Coagulase Negative Staph 04/17/19 08:09 Blood Culture - Preliminary Blood No Growth after 24 hours 04/17/19 08:07 Blood Culture - Final Blood 04/15/19 22:45 Blood Culture - Preliminary Blood No Growth after 48 hours 04/17/19 08:26 Gram Stain - Preliminary Sputum Sputum Culture - Preliminary Assessment and Plan Plan: 1 acute hypoxic/hypercapnic respiratory failure with development of diffuse bilateral lower lobe pneumonia, most likely secondary to massive aspiration. The patient is currently intubated on mechanical ventilator. The patient is an acute hypoxic and hypercapnic respiratory failure. The patient is currently on IV Zosyn. Oxygenation is improved. The currently he is on PEEP of 12 and FiO2 is been weaned down to 40%. On his blood gases was noted. Chest x-ray was noted. 2 abdominal distention with possibility of a cecal mass versus inflammatory changes. General surgeries on the case. Consider underlying malignancy. 3 abdominal pain with evidence of marked wall thickening of the cecum, possible malignancy versus colitis 4 obesity. 5 obstructive sleep apnea 6 hypertension 7 hyperlipidemia 8 Chronic back pain 9 alcoholism 10 hypotension recovered and the patient is currently off pressors. 11 gram-positive cocci in the blood, likely contaminant and the patient was gi sierra dose of vancomycin. PLAN Continue vent support and the necessity ventilator changes have been done. The patient was weaned down to 40% FiO2 and the people gradually be cut down to maintain a pulse ox above 90%. Continued IV Zosyn. Discontinue the Levaquin. Discontinue the vancomycin knowing that the gram-positive and the blood was contaminant and is consistent with staph epidermidis. Continue IV fluids. No pressors for now and the presence of the weaned off and discontinued. Continue sedation. Consult general surgery. May consider a colonoscopy at a later stage. Keep the patient nothing by mouth for another 24 hours. We'll continue to follow. Family updated on this current condition. This is a critically care evaluation that was done and more than 30 minutes. Time with Patient: Greater than 30
[2019-04-18 14:19] LABS: T4, Free (Free Thyroxine) 1.24 ng/dL (0.78-2.19)
--- NOTE | 2019-04-18 14:36 | P.PN ---
Subjective Progress Note Date: 04/18/19 This is a 69-year-old male patient of Dr. Gallardo with past medical history of hypertension, hyperlipidemia, COPD, gastroesophageal reflux disease, remote history of tobacco use, obstructive sleep apnea not using CPAP. Patient complains of sudden onset of abdominal pain starting on Tuesday. He also complains of bloating in the abdomen for the past couple months as well as weight loss of 5-10 pounds over the past 3 months. He complains of decreased appetite. He states he has had occasional burgundy stools. He denies any black stools, no diarrhea, no vomiting. He denies any urinary symptoms. Patient states he had his last colonoscopy in 2013 which was normal. Patient presents to [facility] emergency center for evaluation. Abdominal x-ray shows no acute findings. CAT scan of the abdomen and pelvis showed marked thickening of the cecum concerning for malignancy. A nonspecific colitis is not excluded but felt to be less likely. Thickening in the gastric rugae which may be secondary to under distention versus a nonspecific gastritis. EKG is a sinus tachycardia with right bundle branch block, left AFB. WBC 16.7, hemoglobin 14.7, creatinine 0.74. Troponin negative. Amylase and lipase, liver function tests all normal. Urinalysis was clear with 1+ protein. Patient was admitted to the [facility] floor, consult with Dr. Givens, IV fluids, pain medications and Zofran. Plan is for colonoscopy tomorrow. 04/17: Overnight, patient developed acute respiratory failure and was transferred to the intensive care unit and patient placed on BiPAP, currently under care of Dr. Caballero. Patient subsequently intubated and placed on mechanical ventilation. Echocardiogram from yesterday reveals EF 55-60% with moderate concentric left ventricle hypertrophy, trace mitral regurgitation, trace tricuspid regurgitation, no pulmonary hypertension. No pericardial effusion. Chest x-ray shows new right basilar and pneumonic consolidation with diminished inspiration background right hilar and left basilar more patchy edema and or infiltrate felt present. Repeat chest x-ray shows new endotracheal tube with placement described with recommendations to pullback. Mild cardiomegaly and low lung volumes with bilateral hilar edema and/or infiltrate and right basilar consolidation all redemonstrated increasing left basilar infiltrate felt present. Abdomen was more distended and NG tube was placed. Immediate surgical consultation was requested by Dr. Caballero. Dr. Givens attempted bedside colonoscopy but patient was not properly prepped. He is scheduled for CAT scan of the abdomen and pelvis this afternoon at 2:30. NG tube is in place with bile color returned. Family members are in the waiting room and have been updated. 04/18: The patient remains in intensive care unit intubated and on mechanical ventilation. Vent settings have been decreased and no plan for sedation holiday today. He was weaned off norepinephrine this morning. Urine output has been 50-75 mL per hour. Noted that the Goldberg tube is pink but urine is alesia most likely a drug reaction. Patient has had several bowel movements this morning. Antibiotics have been switched to Zosyn and vancomycin. TSH 0.224 with normal free T4 at 1.24. Surgical consultation has been changed to Dr. Aranda per family wishes. Objective - Vital Signs Vital signs: Vital Signs Temp 97.3 F L 04/18/19 08:00 Pulse 70 04/18/19 11:38 Resp 26 H 04/18/19 11:00 BP 108/69 04/18/19 11:00 Pulse Ox 95 04/18/19 11:00 Intake & Output 04/17/19 04/18/19 04/18/19 18:59 06:59 18:59 Intake Total 5949.229 3952.797 880.475 Output Total 2130 945 270 Balance 3819.229 3007.797 610.475 Weight 118.1 kg Intake: IV 4400 2192 779 0.9 2000 42 12 Levofloxacin 500Mg-D5w 100 Pmx 500 mg In Dextrose/ Water 1 100ml.bag @ 100 mls/hr IVPB Q24H ELA Rx#: [id number] Magnesium Sulfate-D5w Pmx 300 1 gm In Dextrose/Water 1 100ml.bag @ 100 mls/hr IVPB Q1H ELA Rx#: [id number] Piperacillin-Tazobactam 3 100 200 .375 gm In Sodium Chloride 0.9% 100 ml @ 25 mls/hr IVPB Q8H ELA Rx#: [id number] Potassium Chloride 20 meq 400 In Water For Injection 1 100ml.bag @ 50 mls/hr IVPB Q2H ELA Rx#: [id number] Sodium Chloride 0.9% 1, 1500 1950 600 000 ml @ 150 mls/hr IV . Q6H40M ELA Rx#:[id number] Vancomycin 2,000 mg In 167 Sodium Chloride 0.9% 500 ml 500 ml @ 167 mls/hr IVPB Q12HR ELA Rx#: [id number] Intake, IV Titration 349.229 560.797 101.475 Amount Norepinephrine 32 mg In 21.629 1.475 Sodium Chloride 0.9% 218 ml @ 0.05 MCG/KG/MIN 2. 573 mls/hr IV .Q24H ELA Rx#:[id number] Norepinephrine 4 mg In 77.437 34.503 Sodium Chloride 0.9% 250 ml @ 0.05 MCG/KG/MIN 20. 911 mls/hr IV .Q12H9M ELA Rx#:[id number] Propofol 1,000 mg In 271.792 504.665 100 Empty Bag 1 bag @ Titrate IV .Q0M ELA Rx#: [id number] Oral 1200 1200 Output: Gastric Drainage 1350 250 Urine 780 695 270 Other: Voiding Method Indwelling Catheter Indwelling Catheter # Bowel Movements 1 1 ABP, PAP, CO, CI - Last Documented Arterial Blood Pressure 99/54 - Exam Review of Systems All systems: Unable to be obtained due to intubation Physical exam: Gen: This is an obese 69-year-old male. Patient is resting in ICU bed and appears to be comfortable. He is intubated and on mechanical ventilation. HEENT: Head is atraumatic, normocephalic. Pupils equal, round. Sclerae is anicteric. NECK: Supple. No JVD. No lymphadenopathy. No thyromegaly. LUNGS: Clear to auscultation. No wheezes or rhonchi. No intercostal retra ctions. HEART: Regular rate and rhythm. No murmur. ABDOMEN: Distended Bowel sounds are hypoactive. No masses. No tenderness. Goldberg catheter with alesia urine. EXTREMITIES: No pedal edema. No calf tenderness. NEUROLOGICAL: Patient is on mechanical ventilation. - Labs CBC & Chem 7: 04/18/19 04:10 04/18/19 04:10 Labs: Abnormal Lab Results - Last 24 Hours (Table) 04/17/19 04/17/19 04/17/19 Range/Units 07:02 15:20 17:19 RBC (4.30-5.90) m/uL Hgb (13.0-17.5) gm/dL Hct (39.0-53.0) % Neutrophils # (1.3-7.7) k/uL ABG pH 7.14 L* (7.35-7.45) ABG pCO2 76 H* (35-45) mmHg ABG pO2 (83-108) mmHg ABG Total CO2 (19-24) mmol/L ABG O2 Saturation (94-97) % Sodium (137-145) mmol/L Glucose (74-99) mg/dL POC Glucose (mg/dL) 147 H (75-99) mg/dL Calcium (8.4-10.2) mg/dL Magnesium (1.6-2.3) mg/dL Total Protein (6.3-8.2) g/dL Albumin (3.5-5.0) g/dL Urine Protein Trace H (Negative) Urine Blood Moderate H (Negative) Urine RBC >182 H (0-5) /hpf Amorphous Sediment Rare H (None) /hpf Hyaline Casts 23 H (0-2) /lpf Urine Mucus Few H (None) /hpf 04/17/19 04/17/19 04/17/19 Range/Units 18:44 19:03 20:41 RBC (4.30-5.90) m/uL Hgb (13.0-17.5) gm/dL Hct (39.0-53.0) % Neutrophils # (1.3-7.7) k/uL ABG pH 7.32 L (7.35-7.45) ABG pCO2 48 H (35-45) mmHg ABG pO2 (83-108) mmHg ABG Total CO2 26 H (19-24) mmol/L ABG O2 Saturation 97.8 H (94-97) % Sodium (137-145) mmol/L Glucose (74-99) mg/dL POC Glucose (mg/dL) 116 H (75-99) mg/dL Calcium (8.4-10.2) mg/dL Magnesium 2.4 H (1.6-2.3) mg/dL Total Protein (6.3-8.2) g/dL Albumin (3.5-5.0) g/dL Urine Protein (Negative) Urine Blood (Negative) Urine RBC (0-5) /hpf Amorphous Sediment (None) /hpf Hyaline Casts (0-2) /lpf Urine Mucus (None) /hpf 04/17/19 04/18/19 04/18/19 Range/Units 23:30 04:10 04:10 RBC 3.86 L (4.30-5.90) m/uL Hgb 11.8 L (13.0-17.5) gm/dL Hct 36.3 L (39.0-53.0) % Neutrophils # 8.0 H (1.3-7.7) k/uL ABG pH (7.35-7.45) ABG pCO2 (35-45) mmHg ABG pO2 (83-108) mmHg ABG Total CO2 (19-24) mmol/L ABG O2 Saturation (94-97) % Sodium 132 L (137-145) mmol/L Glucose 138 H (74-99) mg/dL POC Glucose (mg/dL) 145 H (75-99) mg/dL Calcium 8.1 L (8.4-10.2) mg/dL Magnesium (1.6-2.3) mg/dL Total Protein 5.1 L (6.3-8.2) g/dL Albumin 2.7 L (3.5-5.0) g/dL Urine Protein (Negative) Urine Blood (Negative) Urine RBC (0-5) /hpf Amorphous Sediment (None) /hpf Hyaline Casts (0-2) /lpf Urine Mucus (None) /hpf 04/18/19 04/18/19 04/18/19 Range/Units 05:03 05:29 12:17 RBC (4.30-5.90) m/uL Hgb (13.0-17.5) gm/dL Hct (39.0-53.0) % Neutrophils # (1.3-7.7) k/uL ABG pH 7.32 L (7.35-7.45) ABG pCO2 46 H (35-45) mmHg ABG pO2 150 H (83-108) mmHg ABG Total CO2 25 H (19-24) mmol/L ABG O2 Saturation 98.8 H (94-97) % Sodium (137-145) mmol/L Glucose (74-99) mg/dL POC Glucose (mg/dL) 139 H 117 H (75-99) mg/dL Calcium (8.4-10.2) mg/dL Magnesium (1.6-2.3) mg/dL Total Protein (6.3-8.2) g/dL Albumin (3.5-5.0) g/dL Urine Protein (Negative) Urine Blood (Negative) Urine RBC (0-5) /hpf Amorphous Sediment (None) /hpf Hyaline Casts (0-2) /lpf Urine Mucus (None) /hpf Microbiology - Last 24 Hours (Table) 04/17/19 08:07 Blood Culture Gram Stain - Preliminary Blood Blood Culture - Preliminary Coagulase Negative Staph 04/17/19 08:09 Blood Culture - Preliminary Blood No Growth after 24 hours 04/17/19 08:07 Blood Culture - Final Blood 04/15/19 22:45 Blood Culture - Preliminary Blood No Growth after 48 hours 04/17/19 08:26 Gram Stain - Preliminary Sputum Sputum Culture - Preliminary Assessment and Plan Plan: 1. Abdominal pain, possible colitis, possible malignancy of the cecum. Consult with Dr. Givens. Continue IV fluids, Levaquin and Zosyn 2. Hypertension. Vasotec IV as needed for systolic blood pressure greater than 160. (lisinopril 40 mg daily, hydrochlorothiazide 25 mg daily, verapamil 240 mg daily on hold). Patient is currently hypotensive with septic shock. Norepinephrine weaned off. 3. Hyperlipidemia. Crestor, niacin and Lopid on hold. 4. Gastroesophageal reflux disease. Continue Protonix. 5. Probable COPD. Continue DuoNeb treatments every 4 hours as needed. 6. Diabetes mellitus type 2, insulin requiring, uncontrolled with hyperglycemia. Metformin on hold. NovoLog scale before meals and at bedtime. NovoLog scale 7. Generalized anxiety disorder. Citalopram 40 mg daily on hold. 8. DVT prophylaxis. Heparin subcu. 9. Acute hypoxic and hypercapnic respiratory failure with bilateral pulmonary infiltrates and masslike consolidation in the right lower lobe most likely secondary to massive aspiration. Patient has been intubated and placed on mechanical ventilation management by Dr. Caballero. 10. Abdominal distention worsening since admission. NG tube placed. Surgical evaluation. Repeat CAT scan of the abdomen and pelvis ordered. Unsuccessful colonoscopy due to poor bowel prep. Consult has been changed to Dr. Aranda. 11. Obstructive sleep apnea noncompliant with CPAP. Discharge plan: To be determined. Impression and plan of care have been directed as dictated by the signing phys ician. Destini Navarro nurse practitioner acting as scribe for signing physician.
[2019-04-18 18:32] LABS: Glucose,Whole Blood 103 mg/dL (75-99)
[2019-04-19 00:02] LABS: Glucose,Whole Blood 86 mg/dL (75-99)
[2019-04-19] MEDS: NOREPINEPHRINE 32 MG in SODIUM CHLORIDE 0.9% 218 ML IV SCH ×2 (00:14→20:59)
[2019-04-19] MEDS: INSULIN ASPART (NovoLOG) 100 UNIT/ML VIAL SQ SCH ×4 (00:15→19:54)
[2019-04-19] MEDS: PROPOFOL 1,000 MG in EMPTY BAG 1 BAG IV SCH ×12 (00:20→19:53)
[2019-04-19] MEDS: IPRATROPIUM-ALBUTEROL 3 ML NEB INHALATION SCH ×5 (03:35→19:19)
[2019-04-19] MEDS: PIPERACILLIN-TAZOBACTAM 3.375 GM in SODIUM CHLORIDE 0.9% 100 ML IVPB SCH ×3 (03:41→19:53)
[2019-04-19] MEDS: SODIUM CHLORIDE 0.9% 1,000 ML IV SCH ×4 (04:02→19:55)
[2019-04-19 04:38] LABS: Basophils % (A) 0 %; Eosinophils # (A) 0.2 k/uL (0-0.7); Eosinophils % (A) 3 %; HCT 34.6 % (39.0-53.0); HGB 11.3 gm/dL (13.0-17.5); Lymphocytes # (A) 1.2 k/uL (1.0-4.8); Lymphocytes % (A) 16 %; MCH 30.5 pg (25.0-35.0); MCHC 32.6 g/dL (31.0-37.0); MCV 93.5 fL (80.0-100.0); Mean Platelet Volume 6.9; Monocytes # (A) 0.4 k/uL (0-1.0); Monocytes % (A) 5 %; Neutrophils # (A) 5.5 k/uL (1.3-7.7); Neutrophils % (A) 74 %; Platelet Count 236 k/uL (150-450); RDW 13.9 % (11.5-15.5); WBC 7.5 k/uL (3.8-10.6)
[2019-04-19 04:50] LABS: African American GFR (CKD) >90 (>60 ml/min/1.73 sqM); Anion Gap 4 mmol/L; Blood Urea Nitrogen 10 mg/dL (9-20); Calcium 8.2 mg/dL (8.4-10.2); Carbon Dioxide 24 mmol/L (22-30); Chloride 107 mmol/L (98-107); Glucose 102 mg/dL (74-99); Magnesium 2.3 mg/dL (1.6-2.3); Phosphorus 2.7 mg/dL (2.5-4.5); Potassium 3.9 mmol/L (3.5-5.1); Sodium 135 mmol/L (137-145)
[2019-04-19 05:01] LABS: ABG HCO3 25 mmol/L (21-25); ABG Oxygen Saturation 95.8 % (94-97); ABG PCO2 40 mmHg (35-45); ABG PH 7.41 (7.35-7.45); ABG PO2 79 mmHg (83-108); ABG TCO2 26 mmol/L (19-24); Allen Test Performed? Yes
[2019-04-19] MEDS: POTASSIUM CHLORIDE 10 MEQ in WATER FOR INJECTION 1 100ML.BAG IVPB SCH ×2 (06:27→08:05)
[2019-04-19 06:34] LABS: Glucose,Whole Blood 97 mg/dL (75-99)
[2019-04-19] MEDS: BUDESONIDE 1 MG/2 ML NEBU INHALATION SCH ×2 (07:16→19:19)
[2019-04-19] MEDS: CHLORHEXIDINE GLUCONATE 15 ML CUP MUCOUS MEM SCH ×2 (08:05→19:54)
[2019-04-19] MEDS: HEPARIN SODIUM,PORCINE 5,000 UNIT/ML 1 ML VIAL SQ SCH ×2 (08:05→19:54)
[2019-04-19] MEDS: PANTOPRAZOLE 40 MG/10 ML VIAL IV SCH (08:05)
--- NOTE | 2019-04-19 08:55 | XR ---
EXAMINATION TYPE: XR chest 1V portable DATE OF EXAM: 04/19/2019 COMPARISON: Prior chest x-ray 04/18/2019 HISTORY: Intubated TECHNIQUE: Single frontal view of the chest is obtained. FINDINGS: Endotracheal tube, orogastric tube and left subclavian central venous catheter are overlyi ng appropriate positions, there are overlying cardiac leads. Heart remains enlarged. Mixed interstiti al and airspace disease is again noted bilaterally. No evident pneumothorax. Bibasilar density is aga in seen. IMPRESSION: Findings are similar to prior exam. Correlate for congestive heart failure, pneumonia, A RDS.
[2019-04-19] MEDS: HYDROmorphone 1 MG/ML 1 ML SYRINGE IVP PRN ×2 (09:15→18:48)
[2019-04-19] MEDS ORDERED: CISATRACURIUM 2 MG/ML 5 ML VIAL IV ONE ×2 (09:20→09:23)
[2019-04-19] MEDS: VANCOMYCIN 2,000 MG in SODIUM CHLORIDE 0.9% 500 ML 500 ML IVPB SCH ×2 (10:26→20:38)
[2019-04-19 11:53] LABS: Glucose,Whole Blood 107 mg/dL (75-99)
[2019-04-19] MEDS ORDERED: ALTEPLASE 2 MG VIAL (CATHFLO) IV STA ×2 (12:05→14:19)
--- NOTE | 2019-04-19 13:34 | P.PN ---
Subjective Progress Note Date: 04/19/19 On 04/19/2019 I'm seeing this patient for a follow-up. The patient is this morning is having excess amount of air leaks on the tracheostomy. He is also having significant amount of orotracheal secretions are quite purulent. NG tube is in place. The patient remains nothing by mouth. Based on all this, I did a bedside extubation and reintubation with #8 orotracheal tube. I inserted a clean orotracheal tube nontender the previous she was quite contaminated and covered with a biofilm. Following that, I performed a bronchoscopy and therapeutic it was suctioning with a total of 20 mL of purulent material was aspirated from the patient's lungs. The tip of the ET tube was seen around 3 cm above the amry. Airway inspection was done and there was no evidence of any the bronchial tumors or lesions. The airways are quite patent and the tinnitus for secretions were all suctioned out. There was no evidence of any fluid material within the airway or any other foreign body. The chest x-ray from today showing the bilateral dense pulmonary infiltrates secondary to pneumonia and possibly early ARDS. Meanwhile, the patient remains on a mechanical ventilator. He is at the rate of 26 with either volume of 450 and FiO2 of 40% with a PEEP of 10. The blood gas showed a pH of 7.41 with a pCO2 of 40 and pO2 of 79 and this was on FiO2 of 40%. The patient remains on a combination of Zosyn and vancomycin. The right second is not elevated. Abdomen is nondistended. The patient has extensive stooling over the past 24 hours that slowed down significantly for today. He remains hemodynamically stable. His was resuscitated. He is on no pressors for now. Dr. Aranda from general surgery will be seeing this patient. He remains on bronchodilator with DuoNeb nebulized treatment [id number]. He is on Pulmicort Respules and is being administered twice a day. He is on IV Zosyn and vancomycin. The blood cultures is showing staph epidermidis, likely a contaminant. He is on propofol at 60 mics. He is also receiving Dilaudid on a when necessary basis for sedation. Alia output is in the order of 50 mL over the past 8 hours. Objective - Vital Signs Vital signs: Vital Signs Temp 98.9 F 04/19/19 11:30 Pulse 59 L 04/19/19 12:00 Resp 26 H 04/19/19 12:00 BP 126/90 04/19/19 08:00 Pulse Ox 99 04/19/19 12:00 Intake & Output 04/18/19 04/19/19 04/19/19 18:59 06:59 18:59 Intake Total 2765.851 3247.117 1473.622 Output Total 930 1045 835 Balance 1975.811 9771.117 638.622 Weight 118 kg Intake: IV 2451 2686 1124 0.9 33 627 750 Piperacillin-Tazobactam 3 100 200 25 .375 gm In Sodium Chloride 0.9% 100 ml @ 25 mls/hr IVPB Q8H ELA Rx#: [id number] Sodium Chloride 0.9% 1, 1650 1350 000 ml @ 150 mls/hr IV . Q6H40M ELA Rx#:[id number] Vancomycin 2,000 mg In 668 500 334 Sodium Chloride 0.9% 500 ml 500 ml @ 167 mls/hr IVPB Q12HR ELA Rx#: [id number] pressure bag 9 15 Intake, IV Titration 314.851 561.117 349.622 Amount Norepinephrine 32 mg In 1.475 Sodium Chloride 0.9% 218 ml @ 0.05 MCG/KG/MIN 2. 573 mls/hr IV .Q24H ELA Rx#:[id number] Potassium Chloride 10 meq 100 100 In Water For Injection 1 100ml.bag @ 100 mls/hr IVPB Q1H ELA Rx#: [id number] Propofol 1,000 mg In 313.376 461.117 249.622 Empty Bag 1 bag @ Titrate IV .Q0M ELA Rx#: [id number] Output: Urine 930 1045 835 Other: Voiding Method Indwelling Catheter Indwelling Catheter Indwelling Catheter # Bowel Movements 1 ABP, PAP, CO, CI - Last Documented Arterial Blood Pressure 119/69 - Exam Gen. appearance, comfortable intubated sedated orogastric and aortic tube are both in place. Head exam was generally normal. There was no scleral icterus or corneal arcus. Mucous membranes were moist. Neck was supple and without jugular venous distension, thyromegaly, or carotid bruits. Carotids were easily palpable bilaterally. There was no adenopathy. The patient subclavian triple-lumen catheter on the left Lungs were clear to auscultation and percussion, and with normal diaphragmatic excursion. No wheezes or rales were noted. Scattered rhonchi heard throughout the lung oneil bilaterally and scattered expiratory wheeze Cardiac exam revealed the PMI to be normally situated and sized. The rhythm was regular and no extrasystoles were noted during several minutes of auscultation. The first and second heart sounds were normal and physiologic splitting of the second heart sound was noted. There were no murmurs, rubs, clicks, or gallops. Abdomen is soft. Nondistended. No direct tenderness rebound tensile guarding at this point in time. Bowel sounds are hypoactive at the present. Examination of the extremities revealed easily palpable radial, femoral and pedal pulses. There was no cyanosis, clubbing or edema. Neurologically the patient is sedated however she can easily the sedation and he withdraws to painful stimulation. - Labs CBC & Chem 7: 04/19/19 04:21 04/19/19 04:21 Labs: Abnormal Lab Results - Last 24 Hours (Table) 04/18/19 04/18/19 04/19/19 Range/Units 04:10 18:20 04:21 RBC 3.70 L (4.30-5.90) m/uL Hgb 11.3 L (13.0-17.5) gm/dL Hct 34.6 L (39.0-53.0) % ABG pO2 (83-108) mmHg ABG Total CO2 (19-24) mmol/L Sodium (137-145) mmol/L Creatinine (0.66-1.25) mg/dL Glucose (74-99) mg/dL POC Glucose (mg/dL) 103 H (75-99) mg/dL Calcium (8.4-10.2) mg/dL TSH 0.244 L (0.465-4.680) mIU/L 04/19/19 04/19/19 04/19/19 Range/Units 04:21 04:48 11:41 RBC (4.30-5.90) m/uL Hgb (13.0-17.5) gm/dL Hct (39.0-53.0) % ABG pO2 79 L (83-108) mmHg ABG Total CO2 26 H (19-24) mmol/L Sodium 135 L (137-145) mmol/L Creatinine 0.60 L (0.66-1.25) mg/dL Glucose 102 H (74-99) mg/dL POC Glucose (mg/dL) 107 H (75-99) mg/dL Calcium 8.2 L (8.4-10.2) mg/dL TSH (0.465-4.680) mIU/L Microbiology - Last 24 Hours (Table) 04/17/19 08:09 Blood Culture - Preliminary Blood No Growth after 48 hours 04/15/19 22:45 Blood Culture - Preliminary Blood No Growth after 72 hours 04/18/19 12:35 Urine Culture - Preliminary Urine,Catheterized 04/17/19 08:07 Blood Culture Gram Stain - Preliminary Blood Blood Culture - Preliminary Coagulase Negative Staph Assessment and Plan Plan: 1 acute hypoxic/hypercapnic respiratory failure with development of diffuse bilateral lower lobe pneumonia, most likely secondary to massive aspiration. The patient had dense consolidation and diffuse bilateral pulmonary infiltrates. Consider development of ARDS secondary to aspiration pneumonia. Nevertheless, the patient selection 80 well and he is on the 40% FiO2 with a PEEP of 10. This morning, I performed a reintubation on this patient. The previously inserted tube was quite dirty with a biofilm and was leaking. The tube was removed and the patient was given another orotracheal tube #8 and the position of the tube was confirmed by a bronchoscope. Following that I performed at [facility] airway suctioning and the rest or secretions were all suctioned out and there were sent for cultures. Currently the patient resting comfortably in bed and he is still sedated with propofol. His success with the mechanical ventilator. 2 abdominal distention with possibility of a cecal mass versus inflammatory changes. General surgeries on the case. Consider underlying malignancy. 3 abdominal pain with evidence of marked wall thickening of the cecum, possible malignancy versus colitis 4 obesity. 5 obstructive sleep apnea 6 hypertension 7 hyperlipidemia 8 Chronic back pain 9 alcoholism 10 hypotension recovered and the patient is currently off pressors. 11 gram-positive cocci in the blood, likely contaminant and the patient was given dose of vancomycin. PLAN The patient will be kept on a mechanical ventilator for now. Necessary interventions were done to improve the air leak around the orotracheal tube and the tube was exchanged. Continue same vent setting. Keep the patient sedated for now. Otoscopic and lavage was done and the samples will be sent for cultures. No pressors for now. Continue Zosyn and vancomycin. awaiting surgical evaluation regarding his cecal abnormality. I would like to get it pedis if I can start the patient on tube feeds. Otherwise, I'm going to start the patient on TPN for nutritional support. Updated the family on his condition. We'll discuss the case with surgery. We'll continue to follow make further recommendations based on the progress. critically care evaluation was done more than 30 minutes. Time with Patient: Greater than 30
--- NOTE | 2019-04-19 15:32 | P.PN ---
Subjective Progress Note Date: 04/19/19 This is a 69-year-old male patient of Dr. Gallardo with past medical history of hypertension, hyperlipidemia, COPD, gastroesophageal reflux disease, remote history of tobacco use, obstructive sleep apnea not using CPAP. Patient complains of sudden onset of abdominal pain starting on Tuesday. He also complains of bloating in the abdomen for the past couple months as well as weight loss of 5-10 pounds over the past 3 months. He complains of decreased appetite. He states he has had occasional burgundy stools. He denies any black stools, no diarrhea, no vomiting. He denies any urinary symptoms. Patient states he had his last colonoscopy in 2013 which was normal. Patient presents to [facility] emergency center for evaluation. Abdominal x-ray shows no acute findings. CAT scan of the abdomen and pelvis showed marked thickening of the cecum concerning for malignancy. A nonspecific colitis is not excluded but felt to be less likely. Thickening in the gastric rugae which may be secondary to under distention versus a nonspecific gastritis. EKG is a sinus tachycardia with right bundle branch block, left AFB. WBC 16.7, hemoglobin 14.7, creatinine 0.74. Troponin negative. Amylase and lipase, liver function tests all normal. Urinalysis was clear with 1+ protein. Patient was admitted to the [facility] floor, consult with Dr. Givens, IV fluids, pain medications and Zofran. Plan is for colonoscopy tomorrow. 04/17: Overnight, patient developed acute respiratory failure and was transferred to the intensive care unit and patient placed on BiPAP, currently under care of Dr. Caballero. Patient subsequently intubated and placed on mechanical ventilation. Echocardiogram from yesterday reveals EF 55-60% with moderate concentric left ventricle hypertrophy, trace mitral regurgitation, trace tricuspid regurgitation, no pulmonary hypertension. No pericardial effusion. Chest x-ray shows new right basilar and pneumonic consolidation with diminished inspiration background right hilar and left basilar more patchy edema and or infiltrate felt present. Repeat chest x-ray shows new endotracheal tube with placement described with recommendations to pullback. Mild cardiomegaly and low lung volumes with bilateral hilar edema and/or infiltrate and right basilar consolidation all redemonstrated increasing left basilar infiltrate felt present. Abdomen was more distended and NG tube was placed. Immediate surgical consultation was requested by Dr. Caballero. Dr. Givens attempted bedside colonoscopy but patient was not properly prepped. He is scheduled for CAT scan of the abdomen and pelvis this afternoon at 2:30. NG tube is in place with bile color returned. Family members are in the waiting room and have been updated. 04/18: The patient remains in intensive care unit intubated and on mechanical ventilation. Vent settings have been decreased and no plan for sedation holiday today. He was weaned off norepinephrine this morning. Urine output has been 50-75 mL per hour. Noted that the Goldberg tube is pink but urine is alesia most likely a drug reaction. Patient has had several bowel movements this morning. Antibiotics have been switched to Zosyn and vancomycin. TSH 0.224 with normal free T4 at 1.24. Surgical consultation has been changed to Dr. Aranda per family wishes. 04/19: Patient remains in intensive care unit intubated and on mechanical ventilation. Patient has had increased purulent secretions and underwent reintubation by Dr. Caballero. He also perform bronchoscopy at the bedside and suction 20 ML's purulent material specimen was sent to the lab for cytology and culture. He is concern for ARDS. Patient is continued on Zosyn and vancomycin. He has been off vasopressors since yesterday morning. Patient has had a small amount of liquid stool today much decreased from yesterday. Dr. Aranda is on for surgery at this point. Patient is having minimal output from NG tube. Bowel sounds remain hypoactive. Consult has been added for GI regarding concern for ischemic colitis. Objective - Vital Signs Vital signs: Vital Signs Temp 98.6 F 04/19/19 08:00 Pulse 65 04/19/19 08:00 Resp 20 04/19/19 08:00 BP 126/90 04/19/19 08:00 Pulse Ox 97 04/19/19 08:00 Intake & Output 04/18/19 04/19/19 04/19/19 18:59 06:59 18:59 Intake Total 2765.851 3247.117 473.317 Output Total 930 1045 450 Balance 6652.046 7166.117 23.317 Weight 118 kg Intake: IV 2451 2686 306 0.9 33 627 300 Piperacillin-Tazobactam 3 100 200 .375 gm In Sodium Chloride 0.9% 100 ml @ 25 mls/hr IVPB Q8H [facility] Rx#: [id number] Sodium Chloride 0.9% 1, 1650 1350 000 ml @ 150 mls/hr IV . Q6H40M [facility] Rx#:[id number] Vancomycin 2,000 mg In 668 500 Sodium Chloride 0.9% 500 ml 500 ml @ 167 mls/hr IVPB Q12HR [facility] Rx#: [id number] pressure bag 9 6 Intake, IV Titration 314.851 561.117 167.317 Amount Norepinephrine 32 mg In 1.475 Sodium Chloride 0.9% 218 ml @ 0.05 MCG/KG/MIN 2. 573 mls/hr IV .Q24H [facility] Rx#:[id number] Potassium Chloride 10 meq 100 100 In Water For Injection 1 100ml.bag @ 100 mls/hr IVPB Q1H [facility] Rx#: [id number] Propofol 1,000 mg In 313.376 461.117 67.317 Empty Bag 1 bag @ Titrate IV .Q0M [facility] Rx#: [id number] Output: Urine 930 1045 450 Other: Voiding Method Indwelling Catheter Indwelling Catheter # Bowel Movements 1 ABP, PAP, CO, CI - Last Documented Arterial Blood Pressure 141/73 - Exam Review of Systems All systems: Unable to be obtained due to intubation Physical exam: Gen: This is an obese 69-year-old male. Patient is resting in ICU bed and appears to be comfortable. He is intubated and on mechanical ventilation. HEENT: Head is atraumatic, normocephalic. Pupils equal, round. Sclerae is anicteric. NG tube in place. NECK: Supple. No JVD. No lymphadenopathy. No thyromegaly. LUNGS: Scattered rhonchi and expiratory wheeze. No intercostal retractions. HEART: Regular rate and rhythm. No murmur. ABDOMEN: Distended Bowel sounds are hypoactive. No masses. No tenderness. Goldberg catheter with alesia urine. EXTREMITIES: No pedal edema. No calf tenderness. NEUROLOGICAL: Patient is on mechanical ventilation. - Labs CBC & Chem 7: 04/19/19 04:21 04/19/19 04:21 Labs: Abnormal Lab Results - Last 24 Hours (Table) 04/18/19 04/18/19 04/18/19 Range/Units 04:10 12:17 18:20 RBC (4.30-5.90) m/uL Hgb (13.0-17.5) gm/dL Hct (39.0-53.0) % ABG pO2 (83-108) mmHg ABG Total CO2 (19-24) mmol/L Sodium (137-145) mmol/L Creatinine (0.66-1.25) mg/dL Glucose (74-99) mg/dL POC Glucose (mg/dL) 117 H 103 H (75-99) mg/dL Calcium (8.4-10.2) mg/dL TSH 0.244 L (0.465-4.680) mIU/L 04/19/19 04/19/19 04/19/19 Range/Units 04:21 04:21 04:48 RBC 3.70 L (4.30-5.90) m/uL Hgb 11.3 L (13.0-17.5) gm/dL Hct 34.6 L (39.0-53.0) % ABG pO2 79 L (83-108) mmHg ABG Total CO2 26 H (19-24) mmol/L Sodium 135 L (137-145) mmol/L Creatinine 0.60 L (0.66-1.25) mg/dL Glucose 102 H (74-99) mg/dL POC Glucose (mg/dL) (75-99) mg/dL Calcium 8.2 L (8.4-10.2) mg/dL TSH (0.465-4.680) mIU/L Microbiology - Last 24 Hours (Table) 04/15/19 22:45 Blood Culture - Preliminary Blood No Growth after 72 hours 04/18/19 12:35 Urine Culture - Preliminary Urine,Catheterized 04/17/19 08:07 Blood Culture Gram Stain - Preliminary Blood Blood Culture - Preliminary Coagulase Negative Staph 04/17/19 08:09 Blood Culture - Preliminary Blood No Growth after 24 hours 04/17/19 08:07 Blood Culture - Final Blood Assessment and Plan Plan: 1. Abdominal pain, possible colitis, possible malignancy of the cecum. Consult with Dr. Givens. Continue IV fluids, Levaquin and Zosyn 2. Hypertension. Vasotec IV as needed for systolic blood pressure greater than 160. (lisinopril 40 mg daily, hydrochlorothiazide 25 mg daily, verapamil 240 mg daily on hold). Patient is currently hypotensive with septic shock. Norep inephrine weaned off. 3. Hyperlipidemia. Crestor, niacin and Lopid on hold. 4. Gastroesophageal reflux disease. Continue Protonix. 5. Probable COPD. Continue DuoNeb treatments every 4 hours as needed. 6. Diabetes mellitus type 2, insulin requiring, uncontrolled with hyperglycemia. Metformin on hold. NovoLog scale before meals and at bedtime. NovoLog scale 7. Generalized anxiety disorder. Citalopram 40 mg daily on hold. 8. DVT prophylaxis. Heparin subcu. 9. Acute hypoxic and hypercapnic respiratory failure with bilateral pulmonary infiltrates and masslike consolidation in the right lower lobe most likely secondary to massive aspiration. Patient has been intubated and placed on mechanical ventilation management by Dr. Caballero. Patient is status post reintubation or exchange of ET tube. Patient is status post bronchoscopy. Specimen sent for cultures and cytology. 10. Abdominal distention worsening since admission. NG tube placed. Surgical evaluation. Repeat CAT scan of the abdomen and pelvic completed. Consult has been changed to Dr. Aranda. 11. Obstructive sleep apnea noncompliant with CPAP. 12. Blood culture with coag-negative staph, contamination. Prognosis guarded. Discharge plan: To be determined. Impression and plan of care have been directed as dictated by the signing physician. Destini Navarro nurse practitioner acting as scribe for signing physician.
--- NOTE | 2019-04-19 16:28 | P.PN ---
Subjective Progress Note Date: 04/19/19 Principal diagnosis: Right-sided colonic wall thickening Patient came to the hospital with complaints of abdominal bloating and pain. CAT scan 2 reveals inflammatory changes at the cecum. Concern for possible underlying neoplasm. I was consulted to see this patient to follow through with his endoscopic evaluation and possible surgical management. Patient remains on the ventilator. Pulmonary status seems to be improving. He is having very liquid drake to brown colored stools. Objective - Vital Signs Vital signs: Vital Signs Temp 99.2 F 04/19/19 16:00 Pulse 61 04/19/19 16:00 Resp 26 H 04/19/19 16:00 BP 117/78 04/19/19 14:00 Pulse Ox 98 04/19/19 16:00 Intake & Output 04/18/19 04/19/19 04/19/19 18:59 06:59 18:59 Intake Total 2765.851 3247.117 2289.076 Output Total 930 1045 1260 Balance 5283.775 7518.117 1029.076 Weight 118 kg Intake: IV 2451 2686 1786 0.9 33 627 1350 Piperacillin-Tazobactam 3 100 200 75 .375 gm In Sodium Chloride 0.9% 100 ml @ 25 mls/hr IVPB Q8H [facility] Rx#: [id number] Sodium Chloride 0.9% 1, 1650 1350 000 ml @ 150 mls/hr IV . Q6H40M [facility] Rx#:[id number] Vancomycin 2,000 mg In 668 500 334 Sodium Chloride 0.9% 500 ml 500 ml @ 167 mls/hr IVPB Q12HR [facility] Rx#: [id number] pressure bag 9 27 Intake, IV Titration 314.851 561.117 503.076 Amount Norepinephrine 32 mg In 1.475 Sodium Chloride 0.9% 218 ml @ 0.05 MCG/KG/MIN 2. 573 mls/hr IV .Q24H [facility] Rx#:[id number] Potassium Chloride 10 meq 100 100 In Water For Injection 1 100ml.bag @ 100 mls/hr IVPB Q1H [facility] Rx#: [id number] Propofol 1,000 mg In 313.376 461.117 403.076 Empty Bag 1 bag @ Titrate IV .Q0M [facility] Rx#: [id number] Output: Urine 930 1045 1260 Other: Voiding Method Indwelling Catheter Indwelling Catheter Indwelling Catheter # Bowel Movements 1 ABP, PAP, CO, CI - Last Documented Arterial Blood Pressure 132/67 - Exam Abdomen: Soft, mild distention, no appreciable tenderness - Labs CBC & Chem 7: 04/19/19 04:21 04/19/19 04:21 Labs: Abnormal Lab Results - Last 24 Hours (Table) 04/18/19 04/19/19 04/19/19 Range/Units 18:20 04:21 04:21 RBC 3.70 L (4.30-5.90) m/uL Hgb 11.3 L (13.0-17.5) gm/dL Hct 34.6 L (39.0-53.0) % ABG pO2 (83-108) mmHg ABG Total CO2 (19-24) mmol/L Sodium 135 L (137-145) mmol/L Creatinine 0.60 L (0.66-1.25) mg/dL Glucose 102 H (74-99) mg/dL POC Glucose (mg/dL) 103 H (75-99) mg/dL Calcium 8.2 L (8.4-10.2) mg/dL 04/19/19 04/19/19 Range/Units 04:48 11:41 RBC (4.30-5.90) m/uL Hgb (13.0-17.5) gm/dL Hct (39.0-53.0) % ABG pO2 79 L (83-108) mmHg ABG Total CO2 26 H (19-24) mmol/L Sodium (137-145) mmol/L Creatinine (0.66-1.25) mg/dL Glucose (74-99) mg/dL POC Glucose (mg/dL) 107 H (75-99) mg/dL Calcium (8.4-10.2) mg/dL Microbiology - Last 24 Hours (Table) 04/17/19 08:26 Gram Stain - Final Sputum Sputum Culture - Final 04/17/19 08:09 Blood Culture - Preliminary Blood No Growth after 48 hours 04/15/19 22:45 Blood Culture - Preliminary Blood No Growth after 72 hours 04/18/19 12:35 Urine Culture - Preliminary Urine,Catheterized Assessment and Plan (1) Colitis Narrative/Plan: Will tentatively plan colonoscopy at bedside tomorrow. Soapsuds enemas this evening and again tomorrow morning. Hold weaning for now. Hold tube feeds for now. Case discussed with the patient's family at length and also Dr. Caballero. Current Visit: Yes Status: Acute Code(s): K52.9 - NONINFECTIVE GASTROEN TERITIS AND COLITIS, UNSPECIFIED SNOMED Code(s): 63026035
[2019-04-19 18:22] LABS: Glucose,Whole Blood 96 mg/dL (75-99)
--- NOTE | 2019-04-19 19:07 | PCN ---
PROCEDURE NOTE PROCEDURE PERFORMED: Intubation. PREOP DIAGNOSES: Acute respiratory failure, air leak around the oral tracheal tube. POSTOP DIAGNOSES: Acute respiratory failure, air leak around the oral tracheal tube. ENDOTRACHEAL INTUBATION: <Indication:> Respiratory compromise. A time-out was completed verifying correct patient, procedure, site, positioning, and implant(s) or special equipment if applicable. The patient was positioned appropriately and a #8 orotracheal tube was placed under direct laryngoscopy. The tube was anchored at 22 cm at the teeth. Correct placement was confirmed by presence of bilateral breath sounds without air sounds in the abdomen on auscultation. An end-tidal CO2 monitor was also used to confirm tracheal placement of the ET tube. A chest x-ray was ordered to assess for pneumothorax and verify endotracheal tube placement. The patient tolerated the procedure well and there were no complications. This procedure was done in the intensive care unit. The patient was intubated by number 8 oral tracheal tube and the position of the tube was confirmed by a bronchoscope and the tip of the tube was seen around 3 cm above the mary. MMODL / IJN: [id number] /
--- NOTE | 2019-04-19 19:45 | PCN ---
PROCEDURE NOTE PROCEDURE: Bronchoscopy. PREOPERATIVE DIAGNOSIS: Bilateral pneumonia. POSTOPERATIVE DIAGNOSIS: Bilateral pneumonia, aspiration pneumonia. PROCEDURE DESCRIPTION: This procedure was done in the intensive care unit. The patient was already intubated on the mechanical ventilator. The patient was intubated by a #8 orotracheal tube. The patient was attached to 100% FiO2, and while being adequately oxygenated and ventilated the flexible bronchoscope was inserted through the orotracheal tube and advanced into the upper trachea. The tip of the orotracheal tube was seen around 3 cm above the mary. There was a copious amount of purulent brownish chocolaty respiratory secretions retained throughout the patient's airway, especially in the trachea and bilateral mainstem bronchi. Therapeutic airway suctioning was done, then the bronchoscope was continued, and the visualized airways included the right upper lobe bronchus, right middle lobe bronchus, right lower lobe bronchus, left upper lobe bronchus, left lower lobe bronchus along with various segments and subsegments. All of these airways were patent and within normal limits, especially after performing therapeutic airway suctioning. At the end of this procedure, a total of 20 mL of purulent material was collected and was sent for cultures. The bronchoscope was removed and the procedure was completed. MMODL / IJN: [id number] / MTDD
[2019-04-19 23:51] LABS: Glucose,Whole Blood 88 mg/dL (75-99)
[2019-04-20] MEDS: IPRATROPIUM-ALBUTEROL 3 ML NEB INHALATION SCH ×7 (00:11→23:20)
[2019-04-20] MEDS: PROPOFOL 1,000 MG in EMPTY BAG 1 BAG IV SCH ×10 (00:19→23:54)
[2019-04-20] MEDS: INSULIN ASPART (NovoLOG) 100 UNIT/ML VIAL SQ SCH ×5 (00:20→23:54)
[2019-04-20] MEDS: SODIUM CHLORIDE 0.9% 1,000 ML IV SCH ×4 (03:26→19:45)
[2019-04-20] MEDS: PIPERACILLIN-TAZOBACTAM 3.375 GM in SODIUM CHLORIDE 0.9% 100 ML IVPB SCH ×3 (03:27→20:57)
[2019-04-20 04:53] LABS: ABG Base Excess 0.8 mmol/L; ABG HCO3 25 mmol/L (21-25); ABG Oxygen Saturation 95.7 % (94-97); ABG PCO2 37 mmHg (35-45); ABG PH 7.44 (7.35-7.45); ABG PO2 76 mmHg (83-108); ABG TCO2 26 mmol/L (19-24); Allen Test Performed? Yes
[2019-04-20 05:00] LABS: Basophils % (A) 0 %; Eosinophils # (A) 0.2 k/uL (0-0.7); Eosinophils % (A) 3 %; HCT 33.7 % (39.0-53.0); HGB 11.2 gm/dL (13.0-17.5); Lymphocytes # (A) 1.1 k/uL (1.0-4.8); Lymphocytes % (A) 14 %; MCH 30.4 pg (25.0-35.0); MCHC 33.1 g/dL (31.0-37.0); MCV 91.7 fL (80.0-100.0); Monocytes # (A) 0.5 k/uL (0-1.0); Monocytes % (A) 6 %; Neutrophils # (A) 6.2 k/uL (1.3-7.7); Neutrophils % (A) 77 %; Platelet Count 262 k/uL (150-450); RBC 3.67 m/uL (4.30-5.90); RDW 14.2 % (11.5-15.5); WBC 8.1 k/uL (3.8-10.6)
[2019-04-20 05:25] LABS: African American GFR (CKD) >90 (>60 ml/min/1.73 sqM); Phosphorus 3.2 mg/dL (2.5-4.5)
[2019-04-20 05:39] LABS: Glucose,Whole Blood 93 mg/dL (75-99)
[2019-04-20] MEDS: BUDESONIDE 1 MG/2 ML NEBU INHALATION SCH ×2 (07:22→19:15)
[2019-04-20 07:30] LABS: African American GFR (CKD) >90 (>60 ml/min/1.73 sqM); Anion Gap 6 mmol/L; Blood Urea Nitrogen 9 mg/dL (9-20); Calcium 8.3 mg/dL (8.4-10.2); Carbon Dioxide 23 mmol/L (22-30); Chloride 109 mmol/L (98-107); Glucose 103 mg/dL (74-99); Magnesium 2.2 mg/dL (1.6-2.3); Potassium 3.6 mmol/L (3.5-5.1); Sodium 138 mmol/L (137-145)
[2019-04-20] MEDS: CHLORHEXIDINE GLUCONATE 15 ML CUP MUCOUS MEM SCH ×2 (08:31→20:57)
[2019-04-20] MEDS: POTASSIUM CHLORIDE 10 MEQ in WATER FOR INJECTION 1 100ML.BAG IVPB SCH ×2 (08:31→10:33)
[2019-04-20] MEDS: HEPARIN SODIUM,PORCINE 5,000 UNIT/ML 1 ML VIAL SQ SCH ×2 (08:32→20:57)
[2019-04-20] MEDS: VANCOMYCIN 2,000 MG in SODIUM CHLORIDE 0.9% 500 ML 500 ML IVPB SCH ×2 (08:32→21:46)
[2019-04-20] MEDS: PANTOPRAZOLE 40 MG/10 ML VIAL IV SCH (08:32)
--- NOTE | 2019-04-20 09:14 | XR ---
EXAMINATION TYPE: XR chest 1V portable DATE OF EXAM: 04/20/2019 Comparison: 04/19/2019 Clinical History: 69-year-old male Tube placement Findings: ET tube satisfactory tip at the medial clavicular heads. Left subclavian CVC tip at the lower SVC lev el. Patient is rotated towards the right altering the normal cardiac mediastinal contours. NG tube co urses below the diaphragm. Heart is mildly enlarged. Diffuse interstitial densities with hazy and pat rodolfo bibasilar opacities, overall unchanged. Impression: Limited portable, rotated exam. Correlate for continued [id number] CHF. Small to moderate effus ions with prominent bibasilar atelectasis and/or consolidation persists.
[2019-04-20] MEDS ORDERED: FUROSEMIDE 10 MG/ML 4 ML VIAL IV STA (09:34)
[2019-04-20 12:07] LABS: Glucose,Whole Blood 111 mg/dL (75-99)
--- NOTE | 2019-04-20 12:19 | P.PN ---
Subjective Progress Note Date: 04/20/19 On 04/20/2019 I'm seeing this patient for a follow-up. The patient is was sedated, comfortable mechanical ventilator. No significant events overnight. The patient assist-control mode of ventilation at the rate of 26 with an FiO2 of 40% , with a tidal volume of 450 with a PEEP of 10. Chest x-ray showing diffuse bilateral pulmonary infiltrates. ET tube is in a good location. White cell count is at 8.1. Blood gases from today showed a pH of 7.44 with a pCO2 of 37 and pO2 of 76. The patient is in a positive fluid balance. No significant edema in the upper and lower extremity. He is well sedated with propofol. Abdomen is nondistended. I had a lengthy discussion with the general surgeon and the patient is going to undergo a colonoscopy today. The patient had also had an enema and preparation for this procedure. The patient is currently on a combination of Zosyn and vancomycin. No other significant events otherwise. Patient is afebrile. Patient underwent a bronchoscopy yesterday and the bronchioloalveolar lavage was sent for microbial cultures and analysis. The patient's cultures came back negative for now. Objective - Vital Signs Vital signs: Vital Signs Temp 99.4 F 04/20/19 12:00 Pulse 57 L 04/20/19 12:00 Resp 26 H 04/20/19 12:00 BP 129/77 04/20/19 11:00 Pulse Ox 97 04/20/19 12:00 Intake & Output 04/19/19 04/20/19 04/20/19 18:59 06:59 18:59 Intake Total 2852.324 2806.58 1565 Output Total 1935 1575 2750 Balance 338.693 7321.58 -1185 Weight 121.7 kg 121.7 kg Intake: IV 2245 2511 1365 0.9 1800 1800 Piperacillin-Tazobactam 3 75 175 .375 gm In Sodium Chloride 0.9% 100 ml @ 25 mls/hr IVPB Q8H [facility] Rx#: [id number] Potassium Chloride 20 meq 100 In Water For Injection 1 100ml.bag @ 50 mls/hr IVPB Q2H [facility] Rx#: [id number] Sodium Chloride 0.9% 1, 750 000 ml @ 150 mls/hr IV . Q6H40M [facility] Rx#:[id number] Vancomycin 2,000 mg In 334 500 500 Sodium Chloride 0.9% 500 ml 500 ml @ 167 mls/hr IVPB Q12HR [facility] Rx#: [id number] pressure bag 36 36 15 Intake, IV Titration 607.324 295.58 200 Amount Potassium Chloride 10 meq 100 In Water For Injection 1 100ml.bag @ 100 mls/hr IVPB Q1H [facility] Rx#: [id number] Propofol 1,000 mg In 507.324 295.58 200 Empty Bag 1 bag @ Titrate IV .Q0M [facility] Rx#: [id number] Output: Urine 1935 1575 2750 Other: Voiding Method Indwelling Catheter Indwelling Catheter Indwelling Catheter # Bowel Movements 1 ABP, PAP, CO, CI - Last Documented Arterial Blood Pressure 145/70 - Exam Gen. appearance, comfortable intubated sedated orogastric and aortic tube are both in place. Head exam was generally normal. There was no scleral icterus or corneal arcus. Mucous membranes were moist. Neck was supple and without jugular venous distension, thyromegaly, or carotid bruits. Carotids were easily palpable bilaterally. There was no adenopathy. The patient subclavian triple-lumen catheter on the left Lungs were clear to auscultation and percussion, and with normal diaphragmatic excursion. No wheezes or rales were noted. Scattered rhonchi heard throughout the lung oneil bilaterally and scattered expiratory wheeze Cardiac exam revealed the PMI to be normally situated and sized. The rhythm was regular and no extrasystoles were noted during several minutes of auscultation. The first and second heart sounds were normal and physiologic splitting of the second heart sound was noted. There were no murmurs, rubs, clicks, or gallops. Abdomen is soft. Nondistended. No direct tenderness rebound tensile guarding at this point in time. Bowel sounds are hypoactive at the present. Examination of the extremities revealed easily palpable radial, femoral and pedal pulses. There was no cyanosis, clubbing or edema. Neurologically the patient is sedated however she can easily the sedation and he withdraws to painful stimulation. - Labs CBC & Chem 7: 04/20/19 04:45 04/20/19 04:45 Labs: Abnormal Lab Results - Last 24 Hours (Table) 04/20/19 04/20/19 04/20/19 Range/Units 04:45 04:45 04:45 RBC 3.67 L (4.30-5.90) m/uL Hgb 11.2 L (13.0-17.5) gm/dL Hct 33.7 L (39.0-53.0) % ABG pO2 (83-108) mmHg ABG Total CO2 (19-24) mmol/L Chloride 109 H (98-107) mmol/L Creatinine 0.58 L 0.65 L (0.66-1.25) mg/dL Glucose 103 H (74-99) mg/dL POC Glucose (mg/dL) (75-99) mg/dL Calcium 8.3 L (8.4-10.2) mg/dL 04/20/19 04/20/19 Range/Units 04:49 11:55 RBC (4.30-5.90) m/uL Hgb (13.0-17.5) gm/dL Hct (39.0-53.0) % ABG pO2 76 L (83-108) mmHg ABG Total CO2 26 H (19-24) mmol/L Chloride (98-107) mmol/L Creatinine (0.66-1.25) mg/dL Glucose (74-99) mg/dL POC Glucose (mg/dL) 111 H (75-99) mg/dL Calcium (8.4-10.2) mg/dL Microbiology - Last 24 Hours (Table) 04/17/19 08:09 Blood Culture - Preliminary Blood No Growth after 72 hours 04/19/19 09:28 Acid Fast Bacilli Smear - Final Bronchoalviolar Lavage - Left Acid Fast Bacilli Culture - Preliminary 04/19/19 09:28 Gram Stain - Preliminary Bronchoalviolar Lavage - Left Bronchial Washings Culture - Preliminary 04/15/19 22:45 Blood Culture - Preliminary Blood No Growth after 96 hours 04/17/19 08:07 Blood Culture Gram Stain - Final Blood Blood Culture - Final Coagulase Negative Staph 04/18/19 12:35 Urine Culture - Final Urine,Catheterized 04/19/19 09:28 Fungal Culture - Preliminary Bronchoalviolar Lavage - Left 04/17/19 08:26 Gram Stain - Final Sputum Sputum Culture - Final Assessment and Plan Plan: 1 acute hypoxic/hypercapnic respiratory failure with development of diffuse bilateral lower lobe pneumonia, most likely secondary to massive aspiration. The patient had dense consolidation and diffuse bilateral pulmonary infiltrates. Consider development of ARDS secondary to aspiration pneumonia. The BAL is negative thus far and the patient is still on examination Zosyn and vancomycin. The patient massive aspiration. The patient is oxygenating well for now. He is on a PEEP of 10 with an FiO2 of 40%. Chest x-ray was noted from today. 2 abdominal distention with possibility of a cecal mass versus inflammatory changes. General surgeries on the case. Consider underlying malignancy. The plan is to proceed with a colonoscopy today. 3 abdominal pain with evidence of marked wall thickening of the cecum, possible malignancy versus colitis, the plan is a colonoscopy today. 4 obesity. 5 obstructive sleep apnea 6 hypertension 7 hyperlipidemia 8 Chronic back pain 9 alcoholism 10 hypotension recovered and the patient is currently off pressors. 11 gram-positive cocci in the blood, likely contaminant and the patient was given dose of vancomycin. PLAN The patient will be kept on a mechanical ventilator for now. Done the PEEP to 8. Keep the FiO2 at 40%. Keep the patient sedated. Give the patient 40 mg IV Lasix. Colonoscopy today and based on that'll make a decision of the patient is able to tolerate any enteral feeding versus TPN. Condition is still critical. We'll continue to follow. We'll make further recommendations based on the colonoscopic findings. If there is an obstructive tumor, the patient may need expiratory laparotomy and colectomy. We'll continue to follow. Critical care evaluation was done and more than 30 minutes. Time with Patient: Greater than 30
[2019-04-20] MEDS ORDERED: PROPOFOL 10 MG/ML 20 ML VIAL IV ONE (12:36)
--- NOTE | 2019-04-20 13:19 | P.PN ---
Subjective Progress Note Date: 04/20/19 This is a 69-year-old male patient of Dr. Gallardo with past medical history of hypertension, hyperlipidemia, COPD, gastroesophageal reflux disease, remote history of tobacco use, obstructive sleep apnea not using CPAP. Patient complains of sudden onset of abdominal pain starting on Tuesday. He also complains of bloating in the abdomen for the past couple months as well as weight loss of 5-10 pounds over the past 3 months. He complains of decreased appetite. He states he has had occasional burgundy stools. He denies any black stools, no diarrhea, no vomiting. He denies any urinary symptoms. Patient states he had his last colonoscopy in 2013 which was normal. Patient presents to [facility] emergency center for evaluation. Abdominal x-ray shows no acute findings. CAT scan of the abdomen and pelvis showed marked thickening of the cecum concerning for malignancy. A nonspecific colitis is not excluded but felt to be less likely. Thickening in the gastric rugae which may be secondary to under distention versus a nonspecific gastritis. EKG is a sinus tachycardia with right bundle branch block, left AFB. WBC 16.7, hemoglobin 14.7, creatinine 0.74. Troponin negative. Amylase and lipase, liver function tests all normal. Urinalysis was clear with 1+ protein. Patient was admitted to the [facility] floor, consult with Dr. Givens, IV fluids, pain medications and Zofran. Plan is for colonoscopy tomorrow. 04/17: Overnight, patient developed acute respiratory failure and was transferred to the intensive care unit and patient placed on BiPAP, currently under care of Dr. Caballero. Patient subsequently intubated and placed on mechanical ventilation. Echocardiogram from yesterday reveals EF 55-60% with moderate concentric left ventricle hypertrophy, trace mitral regurgitation, trace tricuspid regurgitation, no pulmonary hypertension. No pericardial effusion. Chest x-ray shows new right basilar and pneumonic consolidation with diminished inspiration background right hilar and left basilar more patchy edema and or infiltrate felt present. Repeat chest x-ray shows new endotracheal tube with placement described with recommendations to pullback. Mild cardiomegaly and low lung volumes with bilateral hilar edema and/or infiltrate and right basilar consolidation all redemonstrated increasing left basilar infiltrate felt present. Abdomen was more distended and NG tube was placed. Immediate surgical consultation was requested by Dr. Caballero. Dr. Givens attempted bedside colonoscopy but patient was not properly prepped. He is scheduled for CAT scan of the abdomen and pelvis this afternoon at 2:30. NG tube is in place with bile color returned. Family members are in the waiting room and have been updated. 04/18: The patient remains in intensive care unit intubated and on mechanical ventilation. Vent settings have been decreased and no plan for sedation holiday today. He was weaned off norepinephrine this morning. Urine output has been 50-75 mL per hour. Noted that the Goldberg tube is pink but urine is alesia most likely a drug reaction. Patient has had several bowel movements this morning. Antibiotics have been switched to Zosyn and vancomycin. TSH 0.224 with normal free T4 at 1.24. Surgical consultation has been changed to Dr. Aranda per family wishes. 04/19: Patient remains in intensive care unit intubated and on mechanical ventilation. Patient has had increased purulent secretions and underwent reintubation by Dr. Caballero. He also perform bronchoscopy at the bedside and suction 20 ML's purulent material specimen was sent to the lab for cytology and culture. He is concern for ARDS. Patient is continued on Zosyn and vancomycin. He has been off vasopressors since yesterday morning. Patient has had a small amount of liquid stool today much decreased from yesterday. Dr. Aranda is on for surgery at this point. Patient is having minimal output from NG tube. Bowel sounds remain hypoactive. Consult has been added for GI regarding concern for ischemic colitis. 04/20: Patient remains intubated and on mechanical ventilation. Repeat chest x- ray shows continued mild to moderate heart failure. Small to moderate effusions with prominent bibasilar atelectasis and/or consolidation persists. Dr. Aranda is planning for bedside colonoscopy today. Patient was ordered for soapsuds enema last night and this morning. Tube feedings on hold. He has been afebrile, heart rate in the 50s and 60s, blood pressure 141/66. Pulse ox 99%. WBC 8.1, hemoglobin 11.2. Creatinine 0.65. Bronchial washing cytology is pending. Bronchial cultures in progress. Patient will need to start tube feedings or TPN depending on results of colonoscopy scheduled for this afternoon. Patient was given 1 dose of IV Lasix this morning and is diuresing well. Family in the waiting room have been updated. Objective - Vital Signs Vital signs: Vital Signs Temp 99.4 F 04/20/19 08:00 Pulse 56 L 04/20/19 10:15 Resp 28 H 04/20/19 10:15 BP 123/68 04/20/19 06:00 Pulse Ox 99 04/20/19 10:15 Intake & Output 04/19/19 04/20/19 04/20/19 18:59 06:59 18:59 Intake Total 2852.324 2806.58 1159 Output Total 1935 1575 525 Balance 030.105 2264.58 634 Weight 121.7 kg 121.7 kg Intake: IV 2245 2511 1059 0.9 1800 1800 Piperacillin-Tazobactam 3 75 175 .375 gm In Sodium Chloride 0.9% 100 ml @ 25 mls/hr IVPB Q8H [facility] Rx#: [id number] Potassium Chloride 20 meq 100 In Water For Injection 1 100ml.bag @ 50 mls/hr IVPB Q2H [facility] Rx#: [id number] Sodium Chloride 0.9% 1, 450 000 ml @ 150 mls/hr IV . Q6H40M [facility] Rx#:[id number] Vancomycin 2,000 mg In 334 500 500 Sodium Chloride 0.9% 500 ml 500 ml @ 167 mls/hr IVPB Q12HR [facility] Rx#: [id number] pressure bag 36 36 9 Intake, IV Titration 607.324 295.58 100 Amount Potassium Chloride 10 meq 100 In Water For Injection 1 100ml.bag @ 100 mls/hr IVPB Q1H [facility] Rx#: [id number] Propofol 1,000 mg In 507.324 295.58 100 Empty Bag 1 bag @ Titrate IV .Q0M [facility] Rx#: [id number] Output: Urine 1935 1575 525 Other: Voiding Method Indwelling Catheter Indwelling Catheter Indwelling Catheter # Bowel Movements 1 ABP, PAP, CO, CI - Last Documented Arterial Blood Pressure 141/66 - Exam Review of Systems All systems: Unable to be obtained due to intubation Physical exam: Gen: This is an obese 69-year-old male. Patient is resting in ICU bed and appears to be comfortable. He is intubated and on mechanical ventilation. HEENT: Head is atraumatic, normocephalic. Pupils equal, round. Sclerae is anicteric. NG tube in place. NECK: Supple. No JVD. No lymphadenopathy. No thyromegaly. LUNGS: Scattered rhonchi and expiratory wheeze. No intercostal retractions. HEART: Regular rate and rhythm. No murmur. ABDOMEN: Distended Bowel sounds are hypoactive and high-pitched. No masses. No tenderness. Goldberg catheter with light alesia [id number] secondary to diuresing. EXTREMITIES: No pedal edema. No calf tenderness. NEUROLOGICAL: Patient is on mechanical ventilation. - Labs CBC & Chem 7: 04/20/19 04:45 04/20/19 04:45 Labs: Abnormal Lab Results - Last 24 Hours (Table) 04/19/19 04/20/19 04/20/19 Range/Units 11:41 04:45 04:45 RBC 3.67 L (4.30-5.90) m/uL Hgb 11.2 L (13.0-17.5) gm/dL Hct 33.7 L (39.0-53.0) % ABG pO2 (83-108) mmHg ABG Total CO2 (19-24) mmol/L Chloride (98-107) mmol/L Creatinine 0.58 L (0.66-1.25) mg/dL Glucose (74-99) mg/dL POC Glucose (mg/dL) 107 H (75-99) mg/dL Calcium (8.4-10.2) mg/dL 04/20/19 04/20/19 Range/Units 04:45 04:49 RBC (4.30-5.90) m/uL Hgb (13.0-17.5) gm/dL Hct (39.0-53.0) % ABG pO2 76 L (83-108) mmHg ABG Total CO2 26 H (19-24) mmol/L Chloride 109 H (98-107) mmol/L Creatinine 0.65 L (0.66-1.25) mg/dL Glucose 103 H (74-99) mg/dL POC Glucose (mg/dL) (75-99) mg/dL Calcium 8.3 L (8.4-10.2) mg/dL Microbiology - Last 24 Hours (Table) 04/17/19 08:09 Blood Culture - Preliminary Blood No Growth after 72 hours 04/19/19 09:28 Acid Fast Bacilli Smear - Final Bronchoalviolar Lavage - Left Acid Fast Bacilli Culture - Preliminary 04/19/19 09:28 Gram Stain - Preliminary Bronchoalviolar Lavage - Left Bronchial Washings Culture - Preliminary 04/15/19 22:45 Blood Culture - Preliminary Blood No Growth after 96 hours 04/17/19 08:07 Blood Culture Gram Stain - Final Blood Blood Culture - Final Coagulase Negative Staph 04/18/19 12:35 Urine Culture - Final Urine,Catheterized 04/19/19 09:28 Fungal Culture - Preliminary Bronchoalviolar Lavage - Left 04/17/19 08:26 Gram Stain - Final Sputum Sputum Culture - Final Assessment and Plan Plan: 1. Abdominal pain, possible colitis, possible malignancy of the cecum. Consult with Dr. Aranda. Plan for colonoscopy today. Continue IV fluids, Zosyn 2. Hypertension. Vasotec IV as needed for systolic blood pressure greater than 160. (lisinopril 40 mg daily, hydrochlorothiazide 25 mg daily, verapamil 240 mg daily on hold). Patient is currently hypotensive with septic shock. Norepinephrine weaned off. 3. Hyperlipidemia. Crestor, niacin and Lopid on hold. 4. Gastroesophageal reflux disease. Continue Protonix. 5. Probable COPD. Continue DuoNeb treatments every 4 hours as needed. 6. Diabetes mellitus type 2, insulin requiring, uncontrolled with hy perglycemia. Metformin on hold. NovoLog scale before meals and at bedtime. NovoLog scale 7. Generalized anxiety disorder. Citalopram 40 mg daily on hold. 8. DVT prophylaxis. Heparin subcu. 9. Acute hypoxic and hypercapnic respiratory failure with bilateral pulmonary infiltrates and masslike consolidation in the right lower lobe most likely secondary to massive aspiration. Patient has been intubated and placed on mechanical ventilation management by Dr. Caballero. Patient is status post reintubation or exchange of ET tube. Patient is status post bronchoscopy. Specimen sent for cultures and cytology. 10. Abdominal distention worsening since admission. NG tube placed. Surgical evaluation. Repeat CAT scan of the abdomen and pelvic completed. Consult has been changed to Dr. Aranda. 11. Obstructive sleep apnea noncompliant with CPAP. 12. Blood culture with coag-negative staph, contamination. Prognosis guarded. Discharge plan: To be determined. Impression and plan of care have been directed as dictated by the signing physician. Destini Navarro nurse practitioner acting as scribe for signing physician.
--- NOTE | 2019-04-20 13:55 | P.CONS ---
History of Present Illness - Reason for Consult Consult date: 04/20/19 Ischemic colitis Requesting physician: Jocelynn Arndt - Chief Complaint Abdominal pain - History of Present Illness 69-year-old man past medical history hypertension and hyperlipidemia COPD GERD obesity obstructive sleep apnea admitted 5 days ago with reports of abdominal pa in nausea vomiting shortness of breath. Computed tomography scan abdomen and pelvis reported marked thickening of the cecum concerning for malignancy possible colitis. Patient is scheduled today with general surgery for screening colonoscopy. Patient is intubated sedated history obtained from nurse. No reports of hematemesis hematochezia melena. Developed acute respiratory failure with bilateral pulmonary infiltrates aspiration after attempted colonoscopy prep. Hemoglobin 11.2. White count 8.1. BUN 9. Creatinine 0.6. Review of Systems Obtained from medical records Constitutional: Denies fever, chills, sweats, weight gain, or loss. HEENT: Negative for migraines, blurred vision or loss, earaches, drainage, tinnitus, oral mucosal lesions, dysphagia, or odynophagia. Cardiac: Negative for chest pain, arrhythmias, or palpitation. Respiratory: Admitted with shortness of breath, denies hemoptysis, cough, or sputum production. Gastrointestinal: See HPI for pertinent findings. Genitourinary: Negative for hematuria, urgency, frequency, polyuria, dysuria, or penile discharge. Musculoskeletal: Negative for muscle aches, swelling, arthritis, and arthralgias. Neurologic: Negative for stroke or TIA. Endocrine: Negative for thyroid problems. Skin: Negative for rash or itching. Psychiatric: Negative history for depression and anxietye ROS unobtainable: due to mental status Past Medical History Past Medical History: COPD, GERD/Reflux, Hyperlipidemia, Hypertension, Respiratory Disorder, Sleep Apnea/CPAP/BIPAP Additional Past Medical History / Comment(s): Morbid obesity, sleep apnea, chronic sinus disease, hypertension, hyperlipidemia, acid reflux, COPD History of Any Multi-Drug Resistant Organisms: None Reported Past Surgical History: Back Surgery, Hernia Repair Additional Past Surgical History / Comment(s): HIATAL HERNIA REPAIR, last colonoscopy 2013. Past Anesthesia/Blood Transfusion Reactions: No Reported Reaction Past Psychological History: No Psychological Hx Reported Smoking Status: Former smoker Past Alcohol Use History: Occasional Additional Past Alcohol Use History / Comment(s): Patient was a smoker of 2 packs per day for 50 years and quit 11/01/2018. He denies any illicit drug use, no alcohol abuse. He lives at home with his . He has a CPAP which she is not using. Past Drug Use History: None Reported - Past Family History Father Additional Family Medical History / Comment(s): Father from pancreatic cancer. Mother Additional Family Medical History / Comment(s): Mother from aspirating Brother(s) Additional Family Medical History / Comment(s): Patient has 1 brother that from hepatitis from IV drug use. One brother is alive with history of CVA. Patient does not have any sisters. Patient has 3 sons with no major medical problems. Medications and Allergies Home Medications Medication Instructions Recorded Confirmed Type Citalopram Hydrobromide 40 mg PO DAILY 03/20/14 04/16/19 History [Citalopram HBr] Lisinopril 40 mg PO DAILY 03/20/14 04/16/19 History Albuterol Inhaler [Ventolin Hfa 1 - 2 puff INHALATION RT-QID PRN 04/16/19 04/16/19 History Inhaler] Aspirin EC [Ecotrin Low Dose] 81 mg PO DAILY 04/16/19 04/16/19 History Baclofen [Lioresal] 10 mg PO BID PRN 04/16/19 04/16/19 History Esomeprazole Magnesium [NexIUM] 20 mg PO DAILY 04/16/19 04/16/19 History Fish Oil/Dha/Epa [Fish Oil 1,200 1 cap PO DAILY 04/16/19 04/16/19 History mg Fish Oil] Fluticasone/Salmeterol [Advair 1 puff INHALATION RT-BID 04/16/19 04/16/19 History 500-50 Diskus] Gemfibrozil [Lopid] 600 mg PO AC-BID 04/16/19 04/16/19 History HYDROcodone/APAP 7.5-325MG [[place] 1 tab PO Q12H PRN 04/16/19 04/16/19 History 7.5-325] Metoclopramide [Reglan] 5 mg PO TID 04/16/19 04/16/19 History Niacin 500 mg PO DAILY 04/16/19 04/16/19 History Potassium Gluconate 99 mg PO DAILY 04/16/19 04/16/19 History Rosuvastatin [Crestor] 20 mg PO DAILY 04/16/19 04/16/19 History Ubidecarenone [Co Q-10] 200 mg PO DAILY 04/16/19 04/16/19 History metFORMIN HCL [Glucophage] 500 mg PO BID 04/16/19 04/16/19 History Allergies Allergy/AdvReac Type Severity Reaction Status Date / Time No Known Allergies Allergy Verified 04/16/19 10:30 Physical Exam Vitals: Vital Signs Temp Pulse Pulse Resp BP Pulse Ox 04/20/19 13:30 58 L 26 H 98 04/20/19 13:15 64 26 H 90 L 04/20/19 13:00 56 L 26 H 90 L 04/20/19 12:45 60 27 H 94 L 04/20/19 12:30 61 28 H 92 L 04/20/19 12:15 57 L 26 H 97 04/20/19 12:00 99.4 F 57 L 26 H 97 04/20/19 11:45 57 L 26 H 98 04/20/19 11:40 60 04/20/19 11:35 58 L 30 H 04/20/19 11:30 56 L 26 H 98 04/20/19 11:19 56 L 04/20/19 11:15 56 L 30 H 99 04/20/19 11:00 57 L 27 H 129/77 99 04/20/19 10:45 59 L 32 H 98 04/20/19 10:30 59 L 26 H 99 04/20/19 10:15 56 L 28 H 99 04/20/19 10:00 59 L 27 H 99 04/20/19 09:45 59 L 26 H 99 04/20/19 09:30 61 30 H 99 04/20/19 09:15 60 30 H 99 04/20/19 09:00 61 26 H 95 04/20/19 08:00 99.4 F 64 60 26 H 99 04/20/19 07:40 65 04/20/19 07:23 61 04/20/19 07:00 62 30 H 98 04/20/19 06:00 62 29 H 123/68 98 04/20/19 05:00 66 26 H 123/68 96 04/20/19 04:10 60 04/20/19 04:00 99.3 F 61 26 H 120/64 98 04/20/19 03:58 64 04/20/19 03:00 65 25 H 120/64 98 04/20/19 02:00 65 26 H 118/67 97 04/20/19 01:00 65 27 H 118/67 98 04/20/19 00:31 59 L 04/20/19 00:11 61 04/20/19 00:00 99.1 F 61 26 H 127/77 98 04/19/19 23:00 62 22 127/77 98 04/19/19 22:28 63 26 H 127/77 97 04/19/19 22:00 70 29 H 124/70 95 04/19/19 21:00 65 26 H 124/70 99 04/19/19 20:00 98.9 F 64 26 H 117/73 99 04/19/19 19:21 62 26 H 04/19/19 19:00 65 26 H 97 04/19/19 18:00 69 29 H 97 04/19/19 17:00 62 19 97 04/19/19 16:50 62 26 H 04/19/19 16:40 61 26 H 04/19/19 16:00 99.2 F 61 26 H 98 04/19/19 15:00 58 L 27 H 98 04/19/19 14:00 62 26 H 117/78 98 Intake and Output 04/19/19 04/20/19 04/20/19 22:59 06:59 14:59 Intake Total 7957.842 8874 2765 Output Total 1450 1025 2750 Balance 520.352 718 15 Intake: IV 1633 1643 1365 0.9 1200 1350 Piperacillin-Tazobactam 3 75 100 .375 gm In Sodium Chloride 0.9% 100 ml @ 25 mls/hr IVPB Q8H [facility] Rx#: [id number] Potassium Chloride 20 meq 100 In Water For Injection 1 100ml.bag @ 50 mls/hr IVPB Q2H [facility] Rx#: [id number] Sodium Chloride 0.9% 1, 750 000 ml @ 150 mls/hr IV . Q6H40M [facility] Rx#:[id number] Vancomycin 2,000 mg In 334 166 500 Sodium Chloride 0.9% 500 ml 500 ml @ 167 mls/hr IVPB Q12HR [facility] Rx#: [id number] pressure bag 24 27 15 Intake, IV Titration 337.352 100 200 Amount Propofol 1,000 mg In 337.352 100 200 Empty Bag 1 bag @ Titrate IV .Q0M [facility] Rx#: [id number] Oral 1200 Output: Urine 1450 1025 2750 Other: Voiding Method Indwelling Catheter Indwelling Catheter Indwelling Catheter Weight 121.7 kg 121.7 kg ABP, PAP, CO, CI - Last 8 Hours Arterial Blood Pressure 126/73 Arterial Blood Pressure 118/72 Arterial Blood Pressure 142/77 Arterial Blood Pressure 156/78 Arterial Blood Pressure 149/70 Arterial Blood Pressure 140/67 Arterial Blood Pressure 145/70 Arterial Blood Pressure 146/71 Arterial Blood Pressure 141/69 Arterial Blood Pressure 147/71 Arterial Blood Pressure 146/73 Arterial Blood Pressure 160/77 Arterial Blood Pressure 136/67 Arterial Blood Pressure 141/66 Arterial Blood Pressure 150/70 Arterial Blood Pressure 149/70 Arterial Blood Pressure 157/75 Arterial Blood Pressure 155/74 Arterial Blood Pressure 157/79 Arterial Blood Pressure 123/63 Arterial Blood Pressure 137/65 Arterial Blood Pressure 141/64 General appearance: The patient is intubated sedated distress. HEENT: Head is normocephalic and atraumatic. Pupils are equal and reactive. The nares are patent. Oropharynx is clear without lesions. NG tube. Neck: Supple without lymphadenopathy. Trachea midline. Heart: S1 S2. Regular rate and rhythm. Lungs: Diminished in bases bilaterally.. Endotracheal tube intact. Abdomen: Soft, obese , nondistended with good bowel sounds. No peritoneal signs. No palpable organomegaly or masses. Extremities: Normal skin color and turgor. No cyanosis, rash, ulceration, clubbing, or edema. Radial and pedal pulses are 2/4 bilaterally. Goldberg clear alesia urine. Neurological: Cannot be assessed at this time since the patient is intubated and sedated.m Results CBC & Chem 7: 04/20/19 04:45 04/20/19 04:45 Labs: Abnormal Lab Results - Last 24 Hours (Table) 04/20/19 04/20/19 04/20/19 Range/Units 04:45 04:45 04:45 RBC 3.67 L (4.30-5.90) m/uL Hgb 11.2 L (13.0-17.5) gm/dL Hct 33.7 L (39.0-53.0) % ABG pO2 (83-108) mmHg ABG Total CO2 (19-24) mmol/L Chloride 109 H (98-107) mmol/L Creatinine 0.58 L 0.65 L (0.66-1.25) mg/dL Glucose 103 H (74-99) mg/dL POC Glucose (mg/dL) (75-99) mg/dL Calcium 8.3 L (8.4-10.2) mg/dL 04/20/19 04/20/19 Range/Units 04:49 11:55 RBC (4.30-5.90) m/uL Hgb (13.0-17.5) gm/dL Hct (39.0-53.0) % ABG pO2 76 L (83-108) mmHg ABG Total CO2 26 H (19-24) mmol/L Chloride (98-107) mmol/L Creatinine (0.66-1.25) mg/dL Glucose (74-99) mg/dL POC Glucose (mg/dL) 111 H (75-99) mg/dL Calcium (8.4-10.2) mg/dL Microbiology - Last 24 Hours (Table) 04/17/19 08:09 Blood Culture - Preliminary Blood No Growth after 72 hours 04/19/19 09:28 Acid Fast Bacilli Smear - Final Bronchoalviolar Lavage - Left Acid Fast Bacilli Culture - Preliminary 04/19/19 09:28 Gram Stain - Preliminary Bronchoalviolar Lavage - Left Bronchial Washings Culture - Preliminary 04/15/19 22:45 Blood Culture - Preliminary Blood No Growth after 96 hours 04/17/19 08:07 Blood Culture Gram Stain - Final Blood Blood Culture - Final Coagulase Negative Staph 04/18/19 12:35 Urine Culture - Final Urine,Catheterized 04/19/19 09:28 Fungal Culture - Preliminary Bronchoalviolar Lavage - Left 04/17/19 08:26 Gram Stain - Final Sputum Sputum Culture - Final CT scan - abdomen: report reviewed (Dr. Solorio) Assessment and Plan (1) Abdominal pain Narrative/Plan: 69-year-old male admitted with abdominal pain shortness of breath nausea vomiting without GI bleeding CT scan abdomen and pelvis worrisome for possible cecal malignancy possible colitis. Development of acute respiratory failure secondary to bilateral pulmonary infiltrates aspiration presently intubated sedated. Current Visit: Yes Status: Acute Code(s): R10.9 - UNSPECIFIED ABDOMINAL PAIN SNOMED Code(s): 58142183 Plan: 1. Continue with symptomatic supportive measures. General surgery proceeding with endoscopic exam today. Thank you for this kind referral and the opportunity to participate in the care of your patient. This consultation was discussed with Dr. Solorio. The impression and plan of care have been directed as dictated.
--- NOTE | 2019-04-20 14:52 | P.PCN ---
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 SPECIMENS: None ENDOSCOPIC PROCEDURE: The patient was placed on the ICU table in the left decubitus position. The Olympus colonoscope was inserted into the anus and passed under direct visualization to the mid ascending colon. We had challenges getting even to that point. We could not advance the scope more proximally because of significant tortuosity throughout the remainder of the colon. The patient's prep was poor so visualization of the mucosal surfaces were quite limited. From a distance I could not visualize the base of the cecum but what I could see of the valve appeared normal. The ascending transverse descending sigmoid and rectum are free of any large polypoid masses. There was mild diverticulosis in the sigmoid colon. Digital rectal examination was normal. RECOMMENDATIONS: Discussed case with family and pulmonary. We'll continue weaning. Once the patient is off of the ventilator advise barium enema to evaluate the ileocecal valve. Keep nasogastric tube post extubation. Hold tube feeds for now. Agree with plans for TPN.
[2019-04-20] MEDS: HYDROmorphone 1 MG/ML 1 ML SYRINGE IVP PRN (16:24)
[2019-04-20] MEDS ORDERED: Potassium Replacement Protocol 1 EACH MISC MISCELLANE PRN (18:14)
[2019-04-20 18:44] LABS: Glucose,Whole Blood 96 mg/dL (75-99)
[2019-04-20] MEDS: POTASSIUM CHLORIDE 20 MEQ in WATER FOR INJECTION 1 100ML.BAG IVPB SCH ×2 (18:44→20:57)
[2019-04-20] MEDS ORDERED: VANCOMYCIN TROUGH DUE 1 EACH MISC MISCELLANE ONE (20:00)
[2019-04-20] MEDS: NOREPINEPHRINE 32 MG in SODIUM CHLORIDE 0.9% 218 ML IV SCH (22:52)
[2019-04-21 00:05] LABS: Glucose,Whole Blood 99 mg/dL (75-99)
[2019-04-21] MEDS: PROPOFOL 1,000 MG in EMPTY BAG 1 BAG IV SCH ×9 (01:17→22:56)
[2019-04-21] MEDS: IPRATROPIUM-ALBUTEROL 3 ML NEB INHALATION SCH ×6 (03:06→23:11)
[2019-04-21] MEDS: PIPERACILLIN-TAZOBACTAM 3.375 GM in SODIUM CHLORIDE 0.9% 100 ML IVPB SCH ×3 (04:33→19:33)
[2019-04-21 04:37] LABS: HCT 34.5 % (39.0-53.0); HGB 11.5 gm/dL (13.0-17.5); MCH 30.7 pg (25.0-35.0); MCHC 33.4 g/dL (31.0-37.0); Mean Platelet Volume 6.8; Platelet Count 313 k/uL (150-450); RBC 3.75 m/uL (4.30-5.90); RDW 14.2 % (11.5-15.5); WBC 6.8 k/uL (3.8-10.6)
[2019-04-21] MEDS: HYDROmorphone 1 MG/ML 1 ML SYRINGE IVP PRN ×4 (04:44→19:37)
[2019-04-21 04:53] LABS: African American GFR (CKD) >90 (>60 ml/min/1.73 sqM); Phosphorus 3.8 mg/dL (2.5-4.5)
[2019-04-21 05:15] LABS: ABG Base Excess 0.9 mmol/L; ABG HCO3 26 mmol/L (21-25); ABG Oxygen Saturation 94.2 % (94-97); ABG PCO2 40 mmHg (35-45); ABG PH 7.42 (7.35-7.45); ABG PO2 73 mmHg (83-108); ABG TCO2 27 mmol/L (19-24); Allen Test Performed? Yes
[2019-04-21 05:49] LABS: Band Neutrophils % 7 %; Eosinophils # (M) 0.27 k/uL (0-0.7); Lymphocytes # (M) 0.88 k/uL (1.0-4.8); Metamyelocytes # (M) 0.41 k/uL (0); Metamyelocytes % 6 %; Monocytes # (M) 0.14 k/uL (0-1.0); Neutrophils % (M) 68 %; Nucleated Red Blood Cells 0 /100 WBC (0-0); Total Cells Counted 200
--- NOTE | 2019-04-21 06:29 | XR ---
EXAMINATION TYPE: XR chest 1V portable DATE OF EXAM: 04/21/2019 HISTORY: Tube placement. REFERENCE: Previous study dated 04/20/2019. FINDINGS: The patient is ET tube and NG tube remain in place, unchanged in appearance. There is a lef t subclavian catheter in place. Its tip is in the superior vena cava. There is mild cardiomegaly, vascular congestion and pulmonary edema. There is confluent opacity at th e right lung base which may represent confluent edema or superimposed pneumonia. There are bilateral effusions. IMPRESSION: 1. WORSENING CHANGES OF HEART FAILURE. 2. CONFLUENT OPACITY, RIGHT LUNG BASE MAY REPRESENT CONFLUENT EDEMA OR PNEUMONIA.
[2019-04-21] MEDS: INSULIN ASPART (NovoLOG) 100 UNIT/ML VIAL SQ SCH ×4 (06:52→23:38)
[2019-04-21] MEDS: BUDESONIDE 1 MG/2 ML NEBU INHALATION SCH ×2 (07:21→19:11)
[2019-04-21 07:29] LABS: Anion Gap 8 mmol/L; Blood Urea Nitrogen 11 mg/dL (9-20); Calcium 8.5 mg/dL (8.4-10.2); Carbon Dioxide 23 mmol/L (22-30); Chloride 109 mmol/L (98-107); Glucose 97 mg/dL (74-99); Magnesium 2.2 mg/dL (1.6-2.3); Potassium 3.5 mmol/L (3.5-5.1); Sodium 140 mmol/L (137-145)
[2019-04-21] MEDS: POTASSIUM BICARBONATE/CIT AC 20 MEQ TABLET.EFF NG-TUBE SCH ×2 (07:55→09:01)
[2019-04-21] MEDS: PANTOPRAZOLE 40 MG/10 ML VIAL IV SCH (08:32)
[2019-04-21] MEDS: HEPARIN SODIUM,PORCINE 5,000 UNIT/ML 1 ML VIAL SQ SCH ×2 (08:32→20:01)
[2019-04-21] MEDS: CHLORHEXIDINE GLUCONATE 15 ML CUP MUCOUS MEM SCH ×2 (08:32→20:01)
[2019-04-21] MEDS: VANCOMYCIN 2,000 MG in SODIUM CHLORIDE 0.9% 500 ML 500 ML IVPB SCH ×3 (08:39→23:39)
--- NOTE | 2019-04-21 10:03 | P.PN ---
Subjective Progress Note Date: 04/21/19 Principal diagnosis: Right-sided colonic wall thickening Patient remains on the ventilator. Tentative plans for weaning today. White blood cell count is normal. TPN to be started. Objective - Vital Signs Vital signs: Vital Signs Temp 98 F 04/21/19 08:00 Pulse 52 L 04/21/19 09:00 Resp 26 H 04/21/19 09:00 BP 119/68 04/21/19 08:00 Pulse Ox 95 04/21/19 09:00 Intake & Output 04/20/19 04/21/19 04/21/19 18:59 06:59 18:59 Intake Total 3969.201 3156.053 683.644 Output Total 5125 1370 195 Balance -0260.448 6092.053 488.644 Weight 121.7 kg 120.9 kg Intake: IV 2283 2616 459 Norepinephrine 32 mg In 100 Sodium Chloride 0.9% 218 ml @ 0.05 MCG/KG/MIN 2. 573 mls/hr IV .Q24H ELA Rx#:[id number] Piperacillin-Tazobactam 3 200 .375 gm In Sodium Chloride 0.9% 100 ml @ 25 mls/hr IVPB Q8H ELA Rx#: [id number] Potassium Chloride 20 meq 100 In Water For Injection 1 100ml.bag @ 50 mls/hr IVPB Q2H ELA Rx#: [id number] Sodium Chloride 0.9% 1, 1650 1780 450 000 ml @ 150 mls/hr IV . Q6H40M ELA Rx#:[id number] Vancomycin 2,000 mg In 500 500 Sodium Chloride 0.9% 500 ml 500 ml @ 167 mls/hr IVPB Q12HR ELA Rx#: [id number] pressure bag 33 36 9 Intake, IV Titration 486.201 540.053 124.644 Amount Propofol 1,000 mg In 486.201 540.053 124.644 Empty Bag 1 bag @ Titrate IV .Q0M ELA Rx#: [id number] Oral 1200 Other 100 Output: Gastric Drainage 400 Urine 4525 970 195 Oral Regurgitation 600 Other: Voiding Method Indwelling Catheter Indwelling Catheter Indwelling Catheter ABP, PAP, CO, CI - Last Documented Arterial Blood Pressure 127/64 - Exam Abdomen: Soft, mild distention, nontender - Labs CBC & Chem 7: 04/21/19 04:00 04/21/19 04:00 Labs: Abnormal Lab Results - Last 24 Hours (Table) 04/20/19 04/20/19 04/21/19 Range/Units 11:55 17:17 04:00 RBC 3.75 L (4.30-5.90) m/uL Hgb 11.5 L (13.0-17.5) gm/dL Hct 34.5 L (39.0-53.0) % Lymphocytes # (Manual) 0.88 L (1.0-4.8) k/uL Metamyelocytes # (Man) 0.41 H (0) k/uL ABG pO2 (83-108) mmHg ABG HCO3 (21-25) mmol/L ABG Total CO2 (19-24) mmol/L Potassium 3.4 L (3.5-5.1) mmol/L Chloride (98-107) mmol/L Creatinine (0.66-1.25) mg/dL POC Glucose (mg/dL) 111 H (75-99) mg/dL 04/21/19 04/21/19 Range/Units 04:00 05:08 RBC (4.30-5.90) m/uL Hgb (13.0-17.5) gm/dL Hct (39.0-53.0) % Lymphocytes # (Manual) (1.0-4.8) k/uL Metamyelocytes # (Man) (0) k/uL ABG pO2 73 L (83-108) mmHg ABG HCO3 26 H (21-25) mmol/L ABG Total CO2 27 H (19-24) mmol/L Potassium (3.5-5.1) mmol/L Chloride 109 H (98-107) mmol/L Creatinine 0.56 L (0.66-1.25) mg/dL POC Glucose (mg/dL) (75-99) mg/dL Microbiology - Last 24 Hours (Table) 04/19/19 09:28 Gram Stain - Final Bronchoalviolar Lavage - Left Bronchial Washings Culture - Final 04/15/19 22:45 Blood Culture - Preliminary Blood No Growth after 120 hours 04/17/19 08:09 Blood Culture - Preliminary Blood No Growth after 72 hours Assessment and Plan (1) Colitis Narrative/Plan: Keep nothing by mouth with gastric suction in place. Continue weaning from ventilator. Plan barium enema once extubated and stable. Current Visit: Yes Status: Acute Code(s): K52.9 - NONINFECTIVE GASTROENTERITIS AND COLITIS, UNSPECIFIED SNOMED Code(s): 60956866
[2019-04-21] MEDS ORDERED: MVI, ADULT NO.4 WITH VIT K 10 ML, TRACE (CONC-1ML/DOSE) 1 ML in AMINO ACID 5%-D15W+LYTE... IV SCH ×3 (10:30)
[2019-04-21] MEDS: SODIUM CHLORIDE 0.9% 1,000 ML IV SCH ×2 (10:37→13:31)
[2019-04-21] MEDS ORDERED: ALTEPLASE 2 MG VIAL (CATHFLO) IV STA (10:43)
[2019-04-21] MEDS: FUROSEMIDE 10 MG/ML 2 ML VIAL IV SCH ×2 (11:11→20:01)
[2019-04-21 11:13] LABS: Ionized Calcium 5.2 mg/dL (4.5-5.3)
[2019-04-21 11:22] LABS: Potassium 3.7 mmol/L (3.5-5.1)
[2019-04-21 11:50] LABS: Glucose,Whole Blood 94 mg/dL (75-99)
[2019-04-21] MEDS: POTASSIUM CHLORIDE 10 MEQ in WATER FOR INJECTION 1 100ML.BAG IVPB SCH ×2 (12:26→13:28)
--- NOTE | 2019-04-21 12:49 | P.PN ---
Subjective Progress Note Date: 04/21/19 On 04/21/2019 the patient remains intubated on a mechanical ventilator. The patient is well sedated on 30 mics of the propofol. He is calm and comfortable. His assist-control mode of ventilation with a tidal volume of 450 with a PEEP of 8 and FiO2 of 40% and the rate of 26. Chest x-ray still unchanged with diffuse but the pulmonary infiltrates. The patient's bronchioloalveolar lavage was collected earlier showed no evidence of any microbial growth. The patient remains on the same antibiotic coverage which includes a combination of Zosyn and vancomycin. No fever. No chills. No leukocytosis. Blood gases from today showed a pH of 7.42 with a pCO2 of 40 and pO2 73. Meanwhile, the patient underwent a colonoscopy yesterday. The colonoscopy was treated for a possibility ileocecal valve mass. There was particular doses and tortuous colon. The prep wasn't the best. Adequate visualization of the cecum was not possible and the procedure was terminated. Discussed the case with general surgery and we are going to recommend a barium enema to evaluate the ileocecal valve at the later stage. The orogastric tube is in place. The tube feeds are on hold. The patient on TPN for now. Total amount of gastric output is in order of 400 mL over the past 24 hours and the patient is not having any abdominal distention. I'll sounds are hypoactive. The patient grimaces to deep painful stimulation. He is in sinus rhythm. Hemodynamically stable on no pressors. Objective - Vital Signs Vital signs: Vital Signs Temp 38.3 F L 04/21/19 12:01 Pulse 53 L 04/21/19 12:01 Resp 26 H 04/21/19 12:01 BP 119/68 04/21/19 08:00 Pulse Ox 93 L 04/21/19 12:01 Intake & Output 04/20/19 04/21/19 04/21/19 18:59 06:59 18:59 Intake Total 3969.201 3156.053 1038.000 Output Total 5125 1370 865 Balance -6880.435 5414.053 173.000 Weight 121.7 kg 120.9 kg 120.9 kg Intake: IV 2283 5286 638 Mvi, Adult No.4 with Vit 30 K 10 ml Trace (Conc-1Ml/ Dose) 1 ml In Amino Acid 5%-D15w+Lytes*E* 1,000 ml @ 30 mls/hr IV .Q24H ELA Rx#:[id number] Norepinephrine 32 mg In 100 Sodium Chloride 0.9% 218 ml @ 0.05 MCG/KG/MIN 2. 573 mls/hr IV .Q24H ELA Rx#:[id number] Piperacillin-Tazobactam 3 200 100 .375 gm In Sodium Chloride 0.9% 100 ml @ 25 mls/hr IVPB Q8H ELA Rx#: [id number] Potassium Chloride 20 meq 100 In Water For Injection 1 100ml.bag @ 50 mls/hr IVPB Q2H ELA Rx#: [id number] Sodium Chloride 0.9% 1, 1650 1780 490 000 ml @ 150 mls/hr IV . Q6H40M ELA Rx#:[id number] Vancomycin 2,000 mg In 500 500 Sodium Chloride 0.9% 500 ml 500 ml @ 167 mls/hr IVPB Q12HR ELA Rx#: [id number] pressure bag 33 36 18 Intake, IV Titration 486.201 540.053 300.000 Amount Potassium Chloride 20 meq 100 In Water For Injection 1 100ml.bag @ 50 mls/hr IVPB Q2H ELA Rx#: [id number] Propofol 1,000 mg In 486.201 540.053 200.000 Empty Bag 1 bag @ Titrate IV .Q0M ELA Rx#: [id number] Oral 1200 Other 100 Output: Gastric Drainage 400 Urine 4525 970 865 Oral Regurgitation 600 Other: Voiding Method Indwelling Catheter Indwelling Catheter Indwelling Catheter ABP, PAP, CO, CI - Last Documented Arterial Blood Pressure 143/66 - Exam Gen. appearance, comfortable intubated sedated orogastric and aortic tube are both in place. Head exam was generally normal. There was no scleral icterus or corneal arcus. Mucous membranes were moist. Neck was supple and without jugular venous distension, thyromegaly, or carotid bruits. Carotids were easily palpable bilaterally. There was no adenopathy. The patient subclavian triple-lumen catheter on the left Lungs were clear to auscultation and percussion, and with normal diaphragmatic excursion. No wheezes or rales were noted. Scattered rhonchi heard throughout the lung oneil bilaterally and scattered expiratory wheeze Cardiac exam revealed the PMI to be normally situated and sized. The rhythm was regular and no extrasystoles were noted during several minutes of auscultation. The first and second heart sounds were normal and physiologic splitting of the second heart sound was noted. There were no murmurs, rubs, clicks, or gallops. Abdomen is soft. Nondistended. No direct tenderness rebound tensile guarding at this point in time. Bowel sounds are hypoactive at the present. Examination of the extremities revealed easily palpable radial, femoral and pedal pulses. There was no cyanosis, clubbing or edema. Neurologically the patient is sedated however she can easily the sedation and he withdraws to painful stimulation. - Labs CBC & Chem 7: 04/21/19 04:00 04/21/19 11:00 Labs: Abnormal Lab Results - Last 24 Hours (Table) 04/19/19 04/20/19 04/21/19 Range/Units 09:28 17:17 04:00 RBC 3.75 L (4.30-5.90) m/uL Hgb 11.5 L (13.0-17.5) gm/dL Hct 34.5 L (39.0-53.0) % Lymphocytes # (Manual) 0.88 L (1.0-4.8) k/uL Metamyelocytes # (Man) 0.41 H (0) k/uL ABG pO2 (83-108) mmHg ABG HCO3 (21-25) mmol/L ABG Total CO2 (19-24) mmol/L Potassium 3.4 L (3.5-5.1) mmol/L Chloride (98-107) mmol/L Creatinine (0.66-1.25) mg/dL Triglycerides (<150) mg/dL Viral Test See Below H 04/21/19 04/21/19 04/21/19 Range/Units 04:00 05:08 11:00 RBC (4.30-5.90) m/uL Hgb (13.0-17.5) gm/dL Hct (39.0-53.0) % Lymphocytes # (Manual) (1.0-4.8) k/uL Metamyelocytes # (Man) (0) k/uL ABG pO2 73 L (83-108) mmHg ABG HCO3 26 H (21-25) mmol/L ABG Total CO2 27 H (19-24) mmol/L Potassium (3.5-5.1) mmol/L Chloride 109 H (98-107) mmol/L Creatinine 0.56 L (0.66-1.25) mg/dL Triglycerides 683 H (<150) mg/dL Viral Test Microbiology - Last 24 Hours (Table) 04/17/19 08:09 Blood Culture - Preliminary Blood No Growth after 96 hours 04/19/19 09:28 Gram Stain - Final Bronchoalviolar Lavage - Left Bronchial Washings Culture - Final 04/15/19 22:45 Blood Culture - Preliminary Blood No Growth after 120 hours Assessment and Plan Plan: 1 acute hypoxic/hypercapnic respiratory failure with development of diffuse bilateral lower lobe pneumonia, most likely secondary to massive aspiration. The patient had dense consolidation and diffuse bilateral pulmonary infiltrates. Consider development of ARDS secondary to aspiration pneumonia. The BAL is negative and a chest x-ray findings are essentially unchanged with diffuse but the pulmonary infiltrates. The patient is actually taking well. Will drop the PEEP further. No plans for weaning over the patient is is not a sedation holiday. 2 abdominal distention with possibility of a cecal mass versus inflammatory changes. General surgeries on the case. Consider underlying malignancy. The colonoscopy itself was not successful in reaching the ileocecal valve and the patient will need a bit of enema today to stage. The patient is on TPN for nutritional support for now. 3 abdominal pain with evidence of marked wall thickening of the cecum, possible malignancy versus colitis, the colonoscopy was attempted. 4 obesity. 5 obstructive sleep apnea 6 hypertension 7 hyperlipidemia 8 Chronic back pain 9 alcoholism 10 hypotension recovered and the patient is currently off pressors. 11 gram-positive cocci in the blood, likely contaminant and the patient was given dose of vancomycin. PLAN Continue vent support. Dr. SERRA down to 6. Give the patient sedation holiday and assess his underlying mental status. Continue same antibiotic coverage. TPN for nutritional support. Kept on IV fluids to KVO. Initiate IV Lasix to maintain a negative fluid balance. Case was discussed with general surgery. We'll continue TPN and evaluated the patient with a barium enema later stage. Was not found to be a good candidate for laparotomy or laparoscopy at this point in time, especially that his condition is stable for now. Critically care evaluation was done and more than 30 minutes and the case was also discussed with the surgeon and updated to the family. Time with Patient: Greater than 30
[2019-04-21] MEDS: MORPHINE SULFATE 4 MG/ML SYRINGE IV PRN (14:48)
[2019-04-21 15:57] LABS: ABG Base Excess 3.7 mmol/L; ABG HCO3 28 mmol/L (21-25); ABG Oxygen Saturation 93.2 % (94-97); ABG PCO2 39 mmHg (35-45); ABG PH 7.46 (7.35-7.45); ABG PO2 66 mmHg (83-108); ABG TCO2 29 mmol/L (19-24); Allen Test Performed? Yes
--- NOTE | 2019-04-21 16:23 | P.PN ---
Subjective Progress Note Date: 04/21/19 This is a 69-year-old male patient of Dr. Gallardo with past medical history of hypertension, hyperlipidemia, COPD, gastroesophageal reflux disease, remote history of tobacco use, obstructive sleep apnea not using CPAP. Patient complains of sudden onset of abdominal pain starting on Tuesday. He also complains of bloating in the abdomen for the past couple months as well as weight loss of 5-10 pounds over the past 3 months. He complains of decreased appetite. He states he has had occasional burgundy stools. He denies any black stools, no diarrhea, no vomiting. He denies any urinary symptoms. Patient states he had his last colonoscopy in 2013 which was normal. Patient presents to [facility] emergency center for evaluation. Abdominal x-ray shows no acute findings. CAT scan of the abdomen and pelvis showed marked thickening of the cecum concerning for malignancy. A nonspecific colitis is not excluded but felt to be less likely. Thickening in the gastric rugae which may be secondary to under distention versus a nonspecific gastritis. EKG is a sinus tachycardia with right bundle branch block, left AFB. WBC 16.7, hemoglobin 14.7, creatinine 0.74. Troponin negative. Amylase and lipase, liver function tests all normal. Urinalysis was clear with 1+ protein. Patient was admitted to the [facility] floor, consult with Dr. Givens, IV fluids, pain medications and Zofran. Plan is for colonoscopy tomorrow. 04/17: Overnight, patient developed acute respiratory failure and was transferred to the intensive care unit and patient placed on BiPAP, currently under care of Dr. Caballero. Patient subsequently intubated and placed on mechanical ventilation. Echocardiogram from yesterday reveals EF 55-60% with moderate concentric left ventricle hypertrophy, trace mitral regurgitation, trace tricuspid regurgitation, no pulmonary hypertension. No pericardial effusion. Chest x-ray shows new right basilar and pneumonic consolidation with diminished inspiration background right hilar and left basilar more patchy edema and or infiltrate felt present. Repeat chest x-ray shows new endotracheal tube with placement described with recommendations to pullback. Mild cardiomegaly and low lung volumes with bilateral hilar edema and/or infiltrate and right basilar consolidation all redemonstrated increasing left basilar infiltrate felt present. Abdomen was more distended and NG tube was placed. Immediate surgical consultation was requested by Dr. Caballero. Dr. Givens attempted bedside colonoscopy but patient was not properly prepped. He is scheduled for CAT scan of the abdomen and pelvis this afternoon at 2:30. NG tube is in place with bile color returned. Family members are in the waiting room and have been updated. 04/18: The patient remains in intensive care unit intubated and on mechanical ventilation. Vent settings have been decreased and no plan for sedation holiday today. He was weaned off norepinephrine this morning. Urine output has been 50-75 mL per hour. Noted that the Goldberg tube is pink but urine is alesia most likely a drug reaction. Patient has had several bowel movements this morning. Antibiotics have been switched to Zosyn and vancomycin. TSH 0.224 with normal free T4 at 1.24. Surgical consultation has been changed to Dr. Aranda per family wishes. 04/19: Patient remains in intensive care unit intubated and on mechanical ventilation. Patient has had increased purulent secretions and underwent reintubation by Dr. Caballero. He also perform bronchoscopy at the bedside and suction 20 ML's purulent material specimen was sent to the lab for cytology and culture. He is concern for ARDS. Patient is continued on Zosyn and vancomycin. He has been off vasopressors since yesterday morning. Patient has had a small amount of liquid stool today much decreased from yesterday. Dr. Aranda is on for surgery at this point. Patient is having minimal output from NG tube. Bowel sounds remain hypoactive. Consult has been added for GI regarding concern for ischemic colitis. 04/20: Patient remains intubated and on mechanical ventilation. Repeat chest x- ray shows continued mild to moderate heart failure. Small to moderate effusions with prominent bibasilar atelectasis and/or consolidation persists. Dr. Aranda is planning for bedside colonoscopy today. Patient was ordered for soapsuds enema last night and this morning. Tube feedings on hold. He has been afebrile, heart rate in the 50s and 60s, blood pressure 141/66. Pulse ox 99%. WBC 8.1, hemoglobin 11.2. Creatinine 0.65. Bronchial washing cytology is pending. Bronchial cultures in progress. Patient will need to start tube feedings or TPN depending on results of colonoscopy scheduled for this afternoon. Patient was given 1 dose of IV Lasix this morning and is diuresing well. Family in the waiting room have been updated. Objective - Vital Signs Vital signs: Vital Signs Temp 98.6 F 04/21/19 16:00 Pulse 51 L 04/21/19 16:00 Resp 26 H 04/21/19 16:00 BP 128/78 04/21/19 16:00 Pulse Ox 93 L 04/21/19 16:00 Intake & Output 04/20/19 04/21/19 04/21/19 18:59 06:59 18:59 Intake Total 3969.201 3156.053 1377.000 Output Total 5125 1370 2475 Balance -3201.794 2175.053 -1098.000 Weight 121.7 kg 120.9 kg 120.9 kg Intake: IV 2283 2616 777 Mvi, Adult No.4 with Vit 120 K 10 ml Trace (Conc-1Ml/ Dose) 1 ml In Amino Acid 5%-D15w+Lytes*E* 1,000 ml @ 30 mls/hr IV .Q24H [facility] Rx#:[id number] Norepinephrine 32 mg In 100 Sodium Chloride 0.9% 218 ml @ 0.05 MCG/KG/MIN 2. 573 mls/hr IV .Q24H [facility] Rx#:[id number] Piperacillin-Tazobactam 3 200 100 .375 gm In Sodium Chloride 0.9% 100 ml @ 25 mls/hr IVPB Q8H [facility] Rx#: [id number] Potassium Chloride 20 meq 100 In Water For Injection 1 100ml.bag @ 50 mls/hr IVPB Q2H [facility] Rx#: [id number] Sodium Chloride 0.9% 1, 1650 1780 530 000 ml @ 150 mls/hr IV . Q6H40M [facility] Rx#:[id number] Vancomycin 2,000 mg In 500 500 Sodium Chloride 0.9% 500 ml 500 ml @ 167 mls/hr IVPB Q12HR E[facility] Rx#: [id number] pressure bag 33 36 27 Intake, IV Titration 486.201 540.053 500.000 Amount Potassium Chloride 10 meq 200 In Water For Injection 1 100ml.bag @ 100 mls/hr IVPB Q1H [facility] Rx#: [id number] Potassium Chloride 20 meq 100 In Water For Injection 1 100ml.bag @ 50 mls/hr IVPB Q2H ELA Rx#: [id number] Propofol 1,000 mg In 486.201 540.053 200.000 Empty Bag 1 bag @ Titrate IV .Q0M [facility] Rx#: [id number] Oral 1200 Other 100 Output: Gastric Drainage 400 200 Urine 4525 970 2275 Oral Regurgitation 600 Other: Voiding Method Indwelling Catheter Indwelling Catheter Indwelling Catheter ABP, PAP, CO, CI - Last Documented Arterial Blood Pressure 135/65 - Exam sedated on vent - Constitutional General appearance: Present: obese - EENT Eyes: Present: EOMI, PERRLA ENT: Present: NA/AT, normal oropharynx - Respiratory Respiratory: bilateral: rhonchi, negative: wheezing, prolonged expiration, pr olonged inspiration - Cardiovascular Rhythm: regular Heart sounds: normal: S1, S2 - Gastrointestinal General gastrointestinal: Present: decreased bowel sounds - Integumentary Integumentary: Present: decreased turgor, normal - Labs CBC & Chem 7: 04/21/19 04:00 04/21/19 11:00 Labs: Abnormal Lab Results - Last 24 Hours (Table) 04/19/19 04/20/19 04/21/19 Range/Units 09:28 17:17 04:00 RBC 3.75 L (4.30-5.90) m/uL Hgb 11.5 L (13.0-17.5) gm/dL Hct 34.5 L (39.0-53.0) % Lymphocytes # (Manual) 0.88 L (1.0-4.8) k/uL Metamyelocytes # (Man) 0.41 H (0) k/uL ABG pH (7.35-7.45) ABG pO2 (83-108) mmHg ABG HCO3 (21-25) mmol/L ABG Total CO2 (19-24) mmol/L ABG O2 Saturation (94-97) % Potassium 3.4 L (3.5-5.1) mmol/L Chloride (98-107) mmol/L Creatinine (0.66-1.25) mg/dL Triglycerides (<150) mg/dL Viral Test See Below H 04/21/19 04/21/19 04/21/19 Range/Units 04:00 05:08 11:00 RBC (4.30-5.90) m/uL Hgb (13.0-17.5) gm/dL Hct (39.0-53.0) % Lymphocytes # (Manual) (1.0-4.8) k/uL Metamyelocytes # (Man) (0) k/uL ABG pH (7.35-7.45) ABG pO2 73 L (83-108) mmHg ABG HCO3 26 H (21-25) mmol/L ABG Total CO2 27 H (19-24) mmol/L ABG O2 Saturation (94-97) % Potassium (3.5-5.1) mmol/L Chloride 109 H (98-107) mmol/L Creatinine 0.56 L (0.66-1.25) mg/dL Triglycerides 683 H (<150) mg/dL Viral Test 04/21/19 Range/Units 15:54 RBC (4.30-5.90) m/uL Hgb (13.0-17.5) gm/dL Hct (39.0-53.0) % Lymphocytes # (Manual) (1.0-4.8) k/uL Metamyelocytes # (Man) (0) k/uL ABG pH 7.46 H (7.35-7.45) ABG pO2 66 L (83-108) mmHg ABG HCO3 28 H (21-25) mmol/L ABG Total CO2 29 H (19-24) mmol/L ABG O2 Saturation 93.2 L (94-97) % Potassium (3.5-5.1) mmol/L Chloride (98-107) mmol/L Creatinine (0.66-1.25) mg/dL Triglycerides (<150) mg/dL Viral Test Microbiology - Last 24 Hours (Table) 04/17/19 08:09 Blood Culture - Preliminary Blood No Growth after 96 hours 04/19/19 09:28 Gram Stain - Final Bronchoalviolar Lavage - Left Bronchial Washings Culture - Final 04/15/19 22:45 Blood Culture - Preliminary Blood No Growth after 120 hours Laboratory Results WBC 6.8 k/uL (3.8-10.6) 04/21/19 04:00 RBC 3.75 m/uL (4.30-5.90) L 04/21/19 04:00 Hgb 11.5 gm/dL (13.0-17.5) L 04/21/19 04:00 Hct 34.5 % (39.0-53.0) L 04/21/19 04:00 MCV 92.0 fL (80.0-100.0) 04/21/19 04:00 MCH 30.7 pg (25.0-35.0) 04/21/19 04:00 MCHC 33.4 g/dL (31.0-37.0) 04/21/19 04:00 RDW 14.2 % (11.5-15.5) 04/21/19 04:00 Plt Count 313 k/uL (150-450) 04/21/19 04:00 Neutrophils % 77 % 04/20/19 04:45 Neutrophils % (Manual) 68 % 04/21/19 04:00 Band Neutrophils % 7 % 04/21/19 04:00 Lymphocytes % 14 % 04/20/19 04:45 Lymphocytes % (Manual) 13 % 04/21/19 04:00 Monocytes % 6 % 04/20/19 04:45 Monocytes % (Manual) 2 % 04/21/19 04:00 Eosinophils % 3 % 04/20/19 04:45 Eosinophils % (Manual) 4 % 04/21/19 04:00 Basophils % 0 % 04/20/19 04:45 Metamyelocytes % 6 % 04/21/19 04:00 Neutrophils # 6.2 k/uL (1.3-7.7) 04/20/19 04:45 Neutrophils # (Manual) 5.10 k/uL (1.3-7.7) 04/21/19 04:00 Lymphocytes # 1.1 k/uL (1.0-4.8) 04/20/19 04:45 Lymphocytes # (Manual) 0.88 k/uL (1.0-4.8) L 04/21/19 04:00 Monocytes # 0.5 k/uL (0-1.0) 04/20/19 04:45 Monocytes # (Manual) 0.14 k/uL (0-1.0) 04/21/19 04:00 Eosinophils # 0.2 k/uL (0-0.7) 04/20/19 04:45 Eosinophils # (Manual) 0.27 k/uL (0-0.7) 04/21/19 04:00 Basophils # 0.0 k/uL (0-0.2) 04/20/19 04:45 Metamyelocytes # (Man) 0.41 k/uL (0) H 04/21/19 04:00 Nucleated RBCs 0 /100 WBC (0-0) 04/21/19 04:00 Manual Slide Review Performed 04/21/19 04:00 PT 10.5 sec (9.0-12.0) 04/17/19 08:13 INR 1.0 (<1.2) 04/17/19 08:13 APTT 22.5 sec (22.0-30.0) 04/17/19 08:13 Sample Site TASIA 04/21/19 15:54 ABG pH 7.46 (7.35-7.45) H 04/21/19 15:54 ABG pCO2 39 mmHg (35-45) 04/21/19 15:54 ABG pO2 66 mmHg (83-108) L 04/21/19 15:54 ABG HCO3 28 mmol/L (21-25) H 04/21/19 15:54 ABG Total CO2 29 mmol/L (19-24) H 04/21/19 15:54 ABG O2 Saturation 93.2 % (94-97) L 04/21/19 15:54 ABG Base Excess 3.7 mmol/L 04/21/19 15:54 Ric Test Yes 04/21/19 15:54 ABG Lactic Acid 1.7 mmol/L (0.5-1.6) H 04/17/19 08:07 FiO2 40 % 04/21/19 15:54 Sodium 140 mmol/L (137-145) 04/21/19 04:00 Potassium 3.7 mmol/L (3.5-5.1) 04/21/19 11:00 Chloride 109 mmol/L (98-107) H 04/21/19 04:00 Carbon Dioxide 23 mmol/L (22-30) 04/21/19 04:00 Anion Gap 8 mmol/L 04/21/19 04:00 BUN 11 mg/dL (9-20) 04/21/19 04:00 Creatinine 0.56 mg/dL (0.66-1.25) L 04/21/19 04:00 Est GFR (CKD-EPI)AfAm >90 (>60 ml/min/1.73 sqM) 04/21/19 04:00 Est GFR (CKD-EPI)NonAf >90 (>60 ml/min/1.73 sqM) 04/21/19 04:00 Glucose 97 mg/dL (74-99) 04/21/19 04:00 POC Glucose (mg/dL) 94 mg/dL (75-99) 04/21/19 11:38 POC Glu Spool Fixer ID 04/21/19 11:38 Plasma Lactic Acid [place] 1.4 mmol/L (0.7-2.0) 04/15/19 22:45 Calcium 8.5 mg/dL (8.4-10.2) 04/21/19 04:00 Ionized Calcium [place] 5.2 mg/dL (4.5-5.3) 04/21/19 11:00 Phosphorus 3.8 mg/dL (2.5-4.5) 04/21/19 04:00 Magnesium 2.2 mg/dL (1.6-2.3) 04/21/19 04:00 Total Bilirubin 1.0 mg/dL (0.2-1.3) 04/18/19 04:10 AST 18 U/L (17-59) 04/18/19 04:10 ALT 25 U/L (21-72) 04/18/19 04:10 Alkaline Phosphatase 47 U/L (38-126) 04/18/19 04:10 Troponin I <0.012 ng/mL (0.000-0.034) 04/17/19 08:07 NT-Pro-B Natriuret Pep 79 pg/mL 04/17/19 08:07 Total Protein 5.1 g/dL (6.3-8.2) L 04/18/19 04:10 Albumin 2.7 g/dL (3.5-5.0) L 04/18/19 04:10 Triglycerides 683 mg/dL (<150) H 04/21/19 11:00 Amylase 40 U/L (30-110) 04/15/19 22:45 Lipase 56 U/L (23-300) 04/15/19 22:45 TSH 0.244 mIU/L (0.465-4.680) L 04/18/19 04:10 Free T4 1.24 ng/dL (0.78-2.19) 04/18/19 04:10 Urine Color Yellow 04/17/19 15:20 Urine Appearance Cloudy (Clear) 04/17/19 15:20 Urine pH 5.5 (5.0-8.0) 04/17/19 15:20 Ur Specific [place] 1.016 (1.001-1.035) 04/17/19 15:20 Urine Protein Trace (Negative) H 04/17/19 15:20 Urine Glucose (UA) Negative (Negative) 04/17/19 15:20 Urine Ketones Negative (Negative) 04/17/19 15:20 Urine Blood Moderate (Negative) H 04/17/19 15:20 Urine Nitrite Negative (Negative) 04/17/19 15:20 Urine Bilirubin Negative (Negative) 04/17/19 15:20 Urine Urobilinogen 3.0 mg/dL (<2.0) 04/17/19 15:20 Ur Leukocyte Esterase Negative (Negative) 04/17/19 15:20 Urine RBC >182 /hpf (0-5) H 04/17/19 15:20 Urine WBC 4 /hpf (0-5) 04/17/19 15:20 Amorphous Sediment Rare /hpf (None) H 04/17/19 15:20 Hyaline Casts 23 /lpf (0-2) H 04/17/19 15:20 Urine Mucus Few /hpf (None) H 04/17/19 15:20 Vancomycin Trough 9.3 ug/mL 04/20/19 20:32 Virus Source See Below 04/19/19 09:28 Viral Test See Below H 04/19/19 09:28 Virus Analysis Interp See Below 04/19/19 09:28 Assessment and Plan Plan: 1. Acute respiratory distress syndrome most likely secondary to massive as pirated pneumonia, currently vent dependent, in ICU. Being managed by Dr. Caballero FiO2 40%, PEEP of 6, patient still sedated, TPN feedings started 04/20/2019 2. Aspiration pneumonia, IV Zosyn and IV vancomycin, pulmonary medicine for IV antibiotics, bronchial washings April 19 shows normal zander 2 Abdominal pain, possible colitis, possible malignancy of the cecum. Consult with Dr. Aranda. colonoscopy performed 04/20/2019 however there is a very poor visibility secondary to poor prep , scope cannot be advanced proximally secondary to significant tortuosity of the remaining colon, was able to visualize up to mid ascending colon unable to visualize cecum. Continue IV fluids, Zosyn 3 Hypertension. Vasotec IV as needed for systolic blood pressure greater than 160. (lisinopril 40 mg daily, hydrochlorothiazide 25 mg daily, verapamil 240 mg daily on hold). Patient 's hypotension has improved with septic shock. Norepinephrine weaned off. 4. Gastroesophageal reflux disease. Continue Protonix. 5. Probable COPD. Continue DuoNeb treatments every 4 hours as needed. 6. Diabetes mellitus type 2, insulin requiring, uncontrolled with hyperglycemia. Metformin on hold. NovoLog scale before meals and at bedtime. NovoLog scale 7. Generalized anxiety disorder. Citalopram 40 mg daily on hold. 8. DVT prophylaxis. Heparin subcu. 9. Acute hypoxic and hypercapnic respiratory failure with bilateral pulmonary infiltrates and masslike consolidation in the right lower lobe most likely secondary to massive aspiration. Patient has been intubated and placed on mechanical ventilation management by Dr. Caballero. Patient is status post reintubation or exchange of ET tube. Patient is status post bronchoscopy. Specimen sent for cultures and cytology. 10. Abdominal distention worsening since admission. NG tube placed. Surgical evaluation. Repeat CAT scan of the abdomen and pelvic completed. Consult has been changed to Dr. Aranda. 11. Obstructive sleep apnea noncompliant with CPAP. 12. Blood culture with coag-negative staph, contamination. 13. Hyperlipidemia. Crestor, niacin and Lopid on hold. Prognosis guarded. Discharge plan: To be determined. Review of Systems ROS unobtainable: due to mental status Constitutional: Reports as per HPI Ears, nose, mouth and throat: Reports as per HPI Respiratory: Reports as per HPI Gastrointestinal: Reports as per HPI Genitourinary: Reports as per HPI Musculoskeletal: Reports as per HPI Integumentary: Reports as per HPI Neurological: Reports as per HPI
[2019-04-21 17:40] LABS: Glucose,Whole Blood 112 mg/dL (75-99)
[2019-04-21] MEDS ORDERED: Potassium Replacement Protocol 1 EACH MISC MISCELLANE PRN (17:49)
[2019-04-21] MEDS: POTASSIUM CHLORIDE 20 MEQ in WATER FOR INJECTION 1 100ML.BAG IVPB SCH ×2 (18:00→20:03)
[2019-04-21] MEDS: NOREPINEPHRINE 32 MG in SODIUM CHLORIDE 0.9% 218 ML IV SCH (23:32)
[2019-04-21 23:48] LABS: Glucose,Whole Blood 106 mg/dL (75-99)
[2019-04-22] MEDS: HYDROmorphone 1 MG/ML 1 ML SYRINGE IVP PRN ×4 (00:35→20:04)
[2019-04-22] MEDS: PROPOFOL 1,000 MG in EMPTY BAG 1 BAG IV SCH ×11 (00:35→23:46)
[2019-04-22] MEDS: MORPHINE SULFATE 4 MG/ML SYRINGE IV PRN ×4 (02:26→21:20)
[2019-04-22] MEDS: IPRATROPIUM-ALBUTEROL 3 ML NEB INHALATION PRN (03:07)
[2019-04-22] MEDS: IPRATROPIUM-ALBUTEROL 3 ML NEB INHALATION SCH ×6 (03:16→23:21)
[2019-04-22] MEDS: PIPERACILLIN-TAZOBACTAM 3.375 GM in SODIUM CHLORIDE 0.9% 100 ML IVPB SCH ×3 (04:04→19:41)
[2019-04-22 04:25] LABS: Basophils # (A) 0.1 k/uL (0-0.2); Basophils % (A) 1 %; Eosinophils # (A) 0.4 k/uL (0-0.7); Eosinophils % (A) 5 %; HCT 35.4 % (39.0-53.0); HGB 11.8 gm/dL (13.0-17.5); Lymphocytes # (A) 0.9 k/uL (1.0-4.8); Lymphocytes % (A) 12 %; MCH 30.3 pg (25.0-35.0); MCHC 33.3 g/dL (31.0-37.0); Mean Platelet Volume 6.7; Monocytes # (A) 0.4 k/uL (0-1.0); Monocytes % (A) 5 %; Neutrophils # (A) 5.2 k/uL (1.3-7.7); Neutrophils % (A) 75 %; Platelet Count 313 k/uL (150-450); RBC 3.88 m/uL (4.30-5.90); RDW 13.8 % (11.5-15.5)
[2019-04-22 04:32] LABS: ALT 32 U/L (21-72); AST 34 U/L (17-59); African American GFR (CKD) >90 (>60 ml/min/1.73 sqM); Albumin 2.7 g/dL (3.5-5.0); Alkaline Phosphatase 63 U/L (38-126); Anion Gap 6 mmol/L; Blood Urea Nitrogen 11 mg/dL (9-20); Calcium 8.7 mg/dL (8.4-10.2); Carbon Dioxide 27 mmol/L (22-30); Chloride 104 mmol/L (98-107); Glucose 119 mg/dL (74-99); Phosphorus 3.7 mg/dL (2.5-4.5); Potassium 3.6 mmol/L (3.5-5.1); Sodium 137 mmol/L (137-145); Total Bilirubin 0.9 mg/dL (0.2-1.3); Total Protein 5.3 g/dL (6.3-8.2)
[2019-04-22] MEDS ORDERED: Potassium Replacement Protocol 1 EACH MISC MISCELLANE PRN (04:58)
[2019-04-22] MEDS: INSULIN ASPART (NovoLOG) 100 UNIT/ML VIAL SQ SCH ×4 (05:02→23:52)
[2019-04-22] MEDS: POTASSIUM CHLORIDE 20 MEQ in WATER FOR INJECTION 1 100ML.BAG IVPB SCH ×4 (05:13→14:47)
[2019-04-22 05:14] LABS: ABG Base Excess 4.4 mmol/L; ABG HCO3 28 mmol/L (21-25); ABG Oxygen Saturation 93.1 % (94-97); ABG PCO2 40 mmHg (35-45); ABG PH 7.46 (7.35-7.45); ABG PO2 66 mmHg (83-108); ABG TCO2 30 mmol/L (19-24); Allen Test Performed? Yes
--- NOTE | 2019-04-22 06:29 | XR ---
EXAMINATION TYPE: XR chest 1V portable DATE OF EXAM: 04/22/2019 HISTORY: Tube placement. REFERENCE: Previous study dated 04/21/2019. FINDINGS: The patient is ET tube, NG tube and left subclavian catheter remain in place, unchanged in appearance. The bibasilar airspace disease. The heart is mildly enlarged. Impression pulmonary edema. This may have improved slightly. There are small, bilateral effusions. IMPRESSION: 1. SLIGHT IMPROVEMENT IN THE PATIENT'S CONGESTIVE HEART FAILURE. 2. BIBASILAR AIRSPACE DISEASE. 3. SMALL, BILATERAL EFFUSIONS.
[2019-04-22] MEDS: BUDESONIDE 1 MG/2 ML NEBU INHALATION SCH ×2 (07:15→19:18)
[2019-04-22] MEDS: VANCOMYCIN 2,000 MG in SODIUM CHLORIDE 0.9% 500 ML 500 ML IVPB SCH ×3 (08:12→23:55)
[2019-04-22] MEDS: FUROSEMIDE 10 MG/ML 2 ML VIAL IV SCH ×2 (08:43→20:03)
[2019-04-22] MEDS: HEPARIN SODIUM,PORCINE 5,000 UNIT/ML 1 ML VIAL SQ SCH ×2 (08:43→20:03)
[2019-04-22] MEDS: CHLORHEXIDINE GLUCONATE 15 ML CUP MUCOUS MEM SCH ×2 (08:43→20:03)
[2019-04-22] MEDS: PANTOPRAZOLE 40 MG/10 ML VIAL IV SCH (08:45)
--- NOTE | 2019-04-22 10:05 | P.PN ---
Subjective Progress Note Date: 04/22/19 Principal diagnosis: Right-sided colonic wall thickening Patient remains on the ventilator. He was weaning yesterday. Started on TPN. No bowel movement. Objective - Vital Signs Vital signs: Vital Signs Temp 99.2 F 04/22/19 08:00 Pulse 64 04/22/19 10:00 Resp 26 H 04/22/19 10:00 BP 125/75 04/22/19 08:00 Pulse Ox 92 L 04/22/19 10:00 Intake & Output 04/21/19 04/22/19 04/22/19 18:59 06:59 18:59 Intake Total 2196.934 1878.178 870.379 Output Total 3225 2600 900 Balance -1028.066 -721.822 -29.621 Weight 120.9 kg 118.4 kg Intake: IV 1436 1289 106 Mvi, Adult No.4 with Vit 210 390 60 K 10 ml Trace (Conc-1Ml/ Dose) 1 ml In Amino Acid 5%-D15w+Lytes*E* 1,000 ml @ 30 mls/hr IV .Q24H [facility] Rx#:[id number] Piperacillin-Tazobactam 3 600 100 .375 gm In Sodium Chloride 0.9% 100 ml @ 25 mls/hr IVPB Q8H [facility] Rx#: [id number] Sodium Chloride 0.9% 1, 590 20 000 ml @ 150 mls/hr IV . Q6H40M [facility] Rx#:[id number] Sodium Chloride 0.9% 1, 240 40 000 ml @ 20 mls/hr IV . Q24H [facility] Rx#:[id number] Vancomycin 2,000 mg In 500 Sodium Chloride 0.9% 500 ml 500 ml @ 167 mls/hr IVPB Q12HR [facility] Rx#: [id number] pressure bag 36 39 6 Intake, IV Titration 660.934 589.178 764.379 Amount Potassium Chloride 10 meq 200 In Water For Injection 1 100ml.bag @ 100 mls/hr IVPB Q1H [facility] Rx#: [id number] Potassium Chloride 20 meq 100 In Water For Injection 1 100ml.bag @ 50 mls/hr IVPB Q2H [facility] Rx#: [id number] Potassium Chloride 20 meq 100 In Water For Injection 1 100ml.bag @ 50 mls/hr IVPB Q2H [facility] Rx#: [id number] Potassium Chloride 20 meq 100 In Water For Injection 1 100ml.bag @ 50 mls/hr IVPB Q2H [facility] Rx#: [id number] Propofol 1,000 mg In 260.934 589.178 164.379 Empty Bag 1 bag @ Titrate IV .Q0M [facility] Rx#: [id number] Vancomycin 2,000 mg In 500 Sodium Chloride 0.9% 500 ml 500 ml @ 167 mls/hr IVPB Q8HR [facility] Rx#: [id number] Other 100 Output: Gastric Drainage 600 250 550 Urine 2625 2350 350 Other: Voiding Method Indwelling Catheter Indwelling Catheter Indwelling Catheter ABP, PAP, CO, CI - Last Documented Arterial Blood Pressure 142/60 - Exam Abdomen: Soft, nontender, mildly distended - Labs CBC & Chem 7: 04/22/19 04:00 04/22/19 04:00 Labs: Abnormal Lab Results - Last 24 Hours (Table) 04/19/19 04/21/19 04/21/19 Range/Units 09:28 11:00 15:54 RBC (4.30-5.90) m/uL Hgb (13.0-17.5) gm/dL Hct (39.0-53.0) % Lymphocytes # (1.0-4.8) k/uL ABG pH 7.46 H (7.35-7.45) ABG pO2 66 L (83-108) mmHg ABG HCO3 28 H (21-25) mmol/L ABG Total CO2 29 H (19-24) mmol/L ABG O2 Saturation 93.2 L (94-97) % Potassium (3.5-5.1) mmol/L Creatinine (0.66-1.25) mg/dL Glucose (74-99) mg/dL POC Glucose (mg/dL) (75-99) mg/dL Total Protein (6.3-8.2) g/dL Albumin (3.5-5.0) g/dL Triglycerides 683 H (<150) mg/dL Viral Test See Below H 04/21/19 04/21/19 04/21/19 Range/Units 16:52 17:29 23:37 RBC (4.30-5.90) m/uL Hgb (13.0-17.5) gm/dL Hct (39.0-53.0) % Lymphocytes # (1.0-4.8) k/uL ABG pH (7.35-7.45) ABG pO2 (83-108) mmHg ABG HCO3 (21-25) mmol/L ABG Total CO2 (19-24) mmol/L ABG O2 Saturation (94-97) % Potassium 3.4 L (3.5-5.1) mmol/L Creatinine (0.66-1.25) mg/dL Glucose (74-99) mg/dL POC Glucose (mg/dL) 112 H 106 H (75-99) mg/dL Total Protein (6.3-8.2) g/dL Albumin (3.5-5.0) g/dL Triglycerides (<150) mg/dL Viral Test 04/22/19 04/22/19 04/22/19 Range/Units 04:00 04:00 05:12 RBC 3.88 L (4.30-5.90) m/uL Hgb 11.8 L (13.0-17.5) gm/dL Hct 35.4 L (39.0-53.0) % Lymphocytes # 0.9 L (1.0-4.8) k/uL ABG pH 7.46 H (7.35-7.45) ABG pO2 66 L (83-108) mmHg ABG HCO3 28 H (21-25) mmol/L ABG Total CO2 30 H (19-24) mmol/L ABG O2 Saturation 93.1 L (94-97) % Potassium (3.5-5.1) mmol/L Creatinine 0.53 L (0.66-1.25) mg/dL Glucose 119 H (74-99) mg/dL POC Glucose (mg/dL) (75-99) mg/dL Total Protein 5.3 L (6.3-8.2) g/dL Albumin 2.7 L (3.5-5.0) g/dL Triglycerides (<150) mg/dL Viral Test Microbiology - Last 24 Hours (Table) 04/15/19 22:45 Blood Culture - Final Blood No Growth after 144 hours 04/17/19 08:09 Blood Culture - Preliminary Blood No Growth after 96 hours 04/19/19 09:28 Gram Stain - Final Bronchoalviolar Lavage - Left Bronchial Washings Culture - Final Assessment and Plan (1) Colitis Narrative/Plan: Continue weaning from ventilator. Continue TPN. Keep nothing by mouth. Plan barium enema once extubated. Current Visit: Yes Status: Acute Code(s): K52.9 - NONINFECTIVE GASTROENTERITIS AND COLITIS, UNSPECIFIED SNOMED Code(s): 63371425
--- NOTE | 2019-04-22 10:21 | P.PN ---
Subjective Progress Note Date: 04/22/19 On 04/22/2019, the patient is still sedated with propofol. Propofol is running at 50 mics. He was given a sedation holiday. He was unable to tolerate it. He became restless and agitated tachypneic and asynchronous with a mechanical ventilator. He was placed back on sedation. There was no meaningful response once he is off sedation. The same will be done today. The patient on assist control mode and a PEEP was down to 6 and I further dropped down to 5 today with an FiO2 of 40% and a tidal volume of 450 with a rate of 26. The blood gases showed a pH of 7.46 with a pCO2 of 40 and pO2 of 66. No significant leukocytosis. The bronchioloalveolar lavage is been negative. The patient on TPN for nutritional support. Chest x-ray findings shows no significant change the patient has bilateral lower lobe consolidation which is related to massive aspiration pneumonia/chemical pneumonia. Abdomen is nondistended. Orogastric tube still in place. He is on no pressors. Electrodes are all within normal limits. Objective - Vital Signs Vital signs: Vital Signs Temp 99.2 F 04/22/19 08:00 Pulse 64 04/22/19 10:00 Resp 26 H 04/22/19 10:00 BP 125/75 04/22/19 08:00 Pulse Ox 92 L 04/22/19 10:00 Intake & Output 04/21/19 04/22/19 04/22/19 18:59 06:59 18:59 Intake Total 2196.934 1878.178 923.379 Output Total 3225 2600 1775 Balance -1028.066 -721.822 -851.621 Weight 120.9 kg 118.4 kg Intake: IV 1436 1289 159 Mvi, Adult No.4 with Vit 210 390 90 K 10 ml Trace (Conc-1Ml/ Dose) 1 ml In Amino Acid 5%-D15w+Lytes*E* 1,000 ml @ 30 mls/hr IV .Q24H ELA Rx#:[id number] Piperacillin-Tazobactam 3 600 100 .375 gm In Sodium Chloride 0.9% 100 ml @ 25 mls/hr IVPB Q8H ELA Rx#: [id number] Sodium Chloride 0.9% 1, 590 20 000 ml @ 150 mls/hr IV . Q6H40M ELA Rx#:[id number] Sodium Chloride 0.9% 1, 240 60 000 ml @ 20 mls/hr IV . Q24H ELA Rx#:[id number] Vancomycin 2,000 mg In 500 Sodium Chloride 0.9% 500 ml 500 ml @ 167 mls/hr IVPB Q12HR ELA Rx#: [id number] pressure bag 36 39 9 Intake, IV Titration 660.934 589.178 764.379 Amount Potassium Chloride 10 meq 200 In Water For Injection 1 100ml.bag @ 100 mls/hr IVPB Q1H ELA Rx#: [id number] Potassium Chloride 20 meq 100 In Water For Injection 1 100ml.bag @ 50 mls/hr IVPB Q2H ELA Rx#: [id number] Potassium Chloride 20 meq 100 In Water For Injection 1 100ml.bag @ 50 mls/hr IVPB Q2H ELA Rx#: [id number] Potassium Chloride 20 meq 100 In Water For Injection 1 100ml.bag @ 50 mls/hr IVPB Q2H ELA Rx#: [id number] Propofol 1,000 mg In 260.934 589.178 164.379 Empty Bag 1 bag @ Titrate IV .Q0M ELA Rx#: [id number] Vancomycin 2,000 mg In 500 Sodium Chloride 0.9% 500 ml 500 ml @ 167 mls/hr IVPB Q8HR ELA Rx#: [id number] Other 100 Output: Gastric Drainage 600 250 550 Urine 2625 2350 1225 Other: Voiding Method Indwelling Catheter Indwelling Catheter Indwelling Catheter ABP, PAP, CO, CI - Last Documented Arterial Blood Pressure 142/60 - Exam Gen. appearance, comfortable intubated sedated the NG tube and the orotracheal tube are both in place. Head exam was generally normal. There was no scleral icterus or corneal arcus. Mucous membranes were moist. Neck was supple and without jugular venous distension, thyromegaly, or carotid bruits. Carotids were easily palpable bilaterally. There was no adenopathy. The patient subclavian triple-lumen catheter on the left Lungs were clear to auscultation and percussion, and with normal diaphragmatic excursion. No wheezes or rales were noted. Scattered rhonchi heard throughout the lung oneil bilaterally and scattered expiratory wheeze Cardiac exam revealed the PMI to be normally situated and sized. The rhythm was regular and no extrasystoles were noted during several minutes of auscultation. The first and second heart sounds were normal and physiologic splitting of the second heart sound was noted. There were no murmurs, rubs, clicks, or gallops. Abdomen is soft. Nondistended. No direct tenderness rebound tensile guarding at this point in time. Bowel sounds are hypoactive at the present. Examination of the extremities revealed easily palpable radial, femoral and pedal pulses. There was no cyanosis, clubbing or edema. Neurologically the patient is sedated however she can easily the sedation and he withdraws to painful stimulation. - Labs CBC & Chem 7: 04/22/19 04:00 04/22/19 04:00 Labs: Abnormal Lab Results - Last 24 Hours (Table) 04/19/19 04/21/19 04/21/19 Range/Units 09:28 11:00 15:54 RBC (4.30-5.90) m/uL Hgb (13.0-17.5) gm/dL Hct (39.0-53.0) % Lymphocytes # (1.0-4.8) k/uL ABG pH 7.46 H (7.35-7.45) ABG pO2 66 L (83-108) mmHg ABG HCO3 28 H (21-25) mmol/L ABG Total CO2 29 H (19-24) mmol/L ABG O2 Saturation 93.2 L (94-97) % Potassium (3.5-5.1) mmol/L Creatinine (0.66-1.25) mg/dL Glucose (74-99) mg/dL POC Glucose (mg/dL) (75-99) mg/dL Total Protein (6.3-8.2) g/dL Albumin (3.5-5.0) g/dL Triglycerides 683 H (<150) mg/dL Viral Test See Below H 04/21/19 04/21/19 04/21/19 Range/Units 16:52 17:29 23:37 RBC (4.30-5.90) m/uL Hgb (13.0-17.5) gm/dL Hct (39.0-53.0) % Lymphocytes # (1.0-4.8) k/uL ABG pH (7.35-7.45) ABG pO2 (83-108) mmHg ABG HCO3 (21-25) mmol/L ABG Total CO2 (19-24) mmol/L ABG O2 Saturation (94-97) % Potassium 3.4 L (3.5-5.1) mmol/L Creatinine (0.66-1.25) mg/dL Glucose (74-99) mg/dL POC Glucose (mg/dL) 112 H 106 H (75-99) mg/dL Total Protein (6.3-8.2) g/dL Albumin (3.5-5.0) g/dL Triglycerides (<150) mg/dL Viral Test 04/22/19 04/22/19 04/22/19 Range/Units 04:00 04:00 05:12 RBC 3.88 L (4.30-5.90) m/uL Hgb 11.8 L (13.0-17.5) gm/dL Hct 35.4 L (39.0-53.0) % Lymphocytes # 0.9 L (1.0-4.8) k/uL ABG pH 7.46 H (7.35-7.45) ABG pO2 66 L (83-108) mmHg ABG HCO3 28 H (21-25) mmol/L ABG Total CO2 30 H (19-24) mmol/L ABG O2 Saturation 93.1 L (94-97) % Potassium (3.5-5.1) mmol/L Creatinine 0.53 L (0.66-1.25) mg/dL Glucose 119 H (74-99) mg/dL POC Glucose (mg/dL) (75-99) mg/dL Total Protein 5.3 L (6.3-8.2) g/dL Albumin 2.7 L (3.5-5.0) g/dL Triglycerides (<150) mg/dL Viral Test Microbiology - Last 24 Hours (Table) 04/15/19 22:45 Blood Culture - Final Blood No Growth after 144 hours 04/17/19 08:09 Blood Culture - Preliminary Blood No Growth after 96 hours 04/19/19 09:28 Gram Stain - Final Bronchoalviolar Lavage - Left Bronchial Washings Culture - Final Assessment and Plan Plan: 1 acute hypoxic/hypercapnic respiratory failure with development of diffuse bilateral lower lobe pneumonia, most likely secondary to massive aspiration. The patient had dense consolidation and diffuse bilateral pulmonary infiltrates. Consider development of ARDS secondary to aspiration pneumonia. The BAL is negative and a chest x-ray findings are essentially unchanged with diffuse but the pulmonary infiltrates. The patient was weaned off the FiO2 down to 40%. PEEP will be cut down to 5. We'll continue same antibiotic coverage. We'll add Solu-Medrol. 2 abdominal distention with possibility of a cecal mass versus inflammatory changes. General surgeries on the case. Consider underlying malignancy. The colonoscopy itself was not successful in reaching the ileocecal valve and the patient will need a barium enema at a later stage. The patient is on TPN for nutritional support for now. 3 abdominal pain with evidence of marked wall thickening of the cecum, possible malignancy versus colitis, the colonoscopy was attempted. 4 obesity. 5 obstructive sleep apnea 6 hypertension 7 hyperlipidemia 8 Chronic back pain 9 alcoholism 10 hypotension recovered and the patient is currently off pressors. PLAN Continue vent support. The PEEP down to 5. At IV Solu Medrol 40 Mg Every 8 Hours. Continue Bronchodilators. Repeat Chest X-Ray in the Morning. Sedation Holiday. We'll Continue to Follow. Not Ready for Weaning/Extubation yet. The patient remains critically ill. This evaluation was done more than 30 minutes. Case was discussed with the surgeon. Case was also discussed with the family. Time with Patient: Greater than 30
[2019-04-22] MEDS: methylPREDNISolone SOD SUCCI 40 MG/ML 1 ML VIAL IV SCH ×3 (10:48→23:52)
[2019-04-22 11:56] LABS: Glucose,Whole Blood 126 mg/dL (75-99)
[2019-04-22] MEDS: SODIUM CHLORIDE 0.9% 1,000 ML IV SCH (12:53)
--- NOTE | 2019-04-22 15:14 | P.PN ---
Subjective Progress Note Date: 04/22/19 This is a 69-year-old male patient of Dr. Gallardo with past medical history of hypertension, hyperlipidemia, COPD, gastroesophageal reflux disease, remote history of tobacco use, obstructive sleep apnea not using CPAP. Patient complains of sudden onset of abdominal pain starting on Tuesday. He also complains of bloating in the abdomen for the past couple months as well as weight loss of 5-10 pounds over the past 3 months. He complains of decreased appetite. He states he has had occasional burgundy stools. He denies any black stools, no diarrhea, no vomiting. He denies any urinary symptoms. Patient states he had his last colonoscopy in 2013 which was normal. Patient presents to [facility] emergency center for evaluation. Abdominal x-ray shows no acute findings. CAT scan of the abdomen and pelvis showed marked thickening of the cecum concerning for malignancy. A nonspecific colitis is not excluded but felt to be less likely. Thickening in the gastric rugae which may be secondary to under distention versus a nonspecific gastritis. EKG is a sinus tachycardia with right bundle branch block, left AFB. WBC 16.7, hemoglobin 14.7, creatinine 0.74. Troponin negative. Amylase and lipase, liver function tests all normal. Urinalysis was clear with 1+ protein. Patient was admitted to the [facility] floor, consult with Dr. Givens, IV fluids, pain medications and Zofran. Plan is for colonoscopy tomorrow. 04/17: Overnight, patient developed acute respiratory failure and was transferred to the intensive care unit and patient placed on BiPAP, currently under care of Dr. Caballero. Patient subsequently intubated and placed on mechanical ventilation. Echocardiogram from yesterday reveals EF 55-60% with moderate concentric left ventricle hypertrophy, trace mitral regurgitation, trace tricuspid regurgitation, no pulmonary hypertension. No pericardial effusion. Chest x-ray shows new right basilar and pneumonic consolidation with diminished inspiration background right hilar and left basilar more patchy edema and or infiltrate felt present. Repeat chest x-ray shows new endotracheal tube with placement described with recommendations to pullback. Mild cardiomegaly and low lung volumes with bilateral hilar edema and/or infiltrate and right basilar consolidation all redemonstrated increasing left basilar infiltrate felt present. Abdomen was more distended and NG tube was placed. Immediate surgical consultation was requested by Dr. Caballero. Dr. Givens attempted bedside colonoscopy but patient was not properly prepped. He is scheduled for CAT scan of the abdomen and pelvis this afternoon at 2:30. NG tube is in place with bile color returned. Family members are in the waiting room and have been updated. 04/18: The patient remains in intensive care unit intubated and on mechanical ventilation. Vent settings have been decreased and no plan for sedation holiday today. He was weaned off norepinephrine this morning. Urine output has been 50-75 mL per hour. Noted that the Goldberg tube is pink but urine is alesia most likely a drug reaction. Patient has had several bowel movements this morning. Antibiotics have been switched to Zosyn and vancomycin. TSH 0.224 with normal free T4 at 1.24. Surgical consultation has been changed to Dr. Aranda per family wishes. 04/19: Patient remains in intensive care unit intubated and on mechanical ventilation. Patient has had increased purulent secretions and underwent reintubation by Dr. Caballero. He also perform bronchoscopy at the bedside and suction 20 ML's purulent material specimen was sent to the lab for cytology and culture. He is concern for ARDS. Patient is continued on Zosyn and vancomycin. He has been off vasopressors since yesterday morning. Patient has had a small amount of liquid stool today much decreased from yesterday. Dr. Aranda is on for surgery at this point. Patient is having minimal output from NG tube. Bowel sounds remain hypoactive. Consult has been added for GI regarding concern for ischemic colitis. 04/20: Patient remains intubated and on mechanical ventilation. Repeat chest x- ray shows continued mild to moderate heart failure. Small to moderate effusions with prominent bibasilar atelectasis and/or consolidation persists. Dr. Aranda is planning for bedside colonoscopy today. Patient was ordered for soapsuds enema last night and this morning. Tube feedings on hold. He has been afebrile, heart rate in the 50s and 60s, blood pressure 141/66. Pulse ox 99%. WBC 8.1, hemoglobin 11.2. Creatinine 0.65. Bronchial washing cytology is pending. Bronchial cultures in progress. Patient will need to start tube feedings or TPN depending on results of colonoscopy scheduled for this afternoon. Patient was given 1 dose of IV Lasix this morning and is diuresing well. Family in the waiting room have been updated. 04/21: Patient remains in the bed, FiO2 40%, PEEP of 6, NG tube has been placed and had taken out the OG tube, fecaloid billous contents are observed in the NG tube, bowel sounds are very diminished today, no bowel movements over the past 24 hours, x-rays of the abdomen will be done to evaluate for progressive bowel obstruction, patient remains to be afebrile, no leukocytosis bronchial washing cultures shows no normal zander vital signs are stable no hypotensive events, patient is slightly hypotensive on IV Solu-Medrol 40 every 8 Objective - Vital Signs Vital signs: Vital Signs Temp 98.3 F 04/22/19 12:00 Pulse 58 L 04/22/19 14:00 Resp 22 04/22/19 14:00 BP 125/75 04/22/19 08:00 Pulse Ox 92 L 04/22/19 14:00 Intake & Output 04/21/19 04/22/19 04/22/19 18:59 06:59 18:59 Intake Total 2196.934 3479.491 9729.379 Output Total 3225 2600 3650 Balance -1028.066 -721.822 -1461.621 Weight 120.9 kg 118.4 kg Intake: IV 1436 1289 519 Mvi, Adult No.4 with Vit 210 390 90 K 10 ml Trace (Conc-1Ml/ Dose) 1 ml In Amino Acid 5%-D15w+Lytes*E* 1,000 ml @ 30 mls/hr IV .Q24H ELA Rx#:[id number] Mvi, Adult No.4 with Vit 168 K 10 ml Trace (Conc-1Ml/ Dose) 1 ml In Amino Acid 5%-D15w+Lytes*E* 1,000 ml @ 42 mls/hr IV .Q24H ELA Rx#:[id number] Piperacillin-Tazobactam 3 600 100 100 .375 gm In Sodium Chloride 0.9% 100 ml @ 25 mls/hr IVPB Q8H ELA Rx#: [id number] Sodium Chloride 0.9% 1, 590 20 000 ml @ 150 mls/hr IV . Q6H40M ELA Rx#:[id number] Sodium Chloride 0.9% 1, 240 140 000 ml @ 20 mls/hr IV . Q24H ELA Rx#:[id number] Vancomycin 2,000 mg In 500 Sodium Chloride 0.9% 500 ml 500 ml @ 167 mls/hr IVPB Q12HR ELA Rx#: [id number] pressure bag 36 39 21 Intake, IV Titration 660.934 590.380 2889.379 Amount Mvi, Adult No.4 with Vit 705 K 10 ml Trace (Conc-1Ml/ Dose) 1 ml In Amino Acid 5%-D15w+Lytes*E* 1,000 ml @ 30 mls/hr IV .Q24H ELA Rx#:[id number] Potassium Chloride 10 meq 200 In Water For Injection 1 100ml.bag @ 100 mls/hr IVPB Q1H ELA Rx#: [id number] Potassium Chloride 20 meq 100 In Water For Injection 1 100ml.bag @ 50 mls/hr IVPB Q2H ELA Rx#: [id number] Potassium Chloride 20 meq 100 In Water For Injection 1 100ml.bag @ 50 mls/hr IVPB Q2H ELA Rx#: [id number] Potassium Chloride 20 meq 100 In Water For Injection 1 100ml.bag @ 50 mls/hr IVPB Q2H ELA Rx#: [id number] Potassium Chloride 20 meq 100 In Water For Injection 1 100ml.bag @ 50 mls/hr IVPB Q2H ELA Rx#: [id number] Propofol 1,000 mg In 260.934 589.178 264.379 Empty Bag 1 bag @ Titrate IV .Q0M ELA Rx#: [id number] Vancomycin 2,000 mg In 500 Sodium Chloride 0.9% 500 ml 500 ml @ 167 mls/hr IVPB Q8HR ELA Rx#: [id number] Other 100 Output: Gastric Drainage 600 250 950 Urine 2625 2350 2700 Other: Voiding Method Indwelling Catheter Indwelling Catheter Indwelling Catheter ABP, PAP, CO, CI - Last Documented Arterial Blood Pressure 130/57 - Exam sedated on vent - Constitutional General appearance: Present: no acute distress, obese - EENT Eyes: Present: anicteric sclerae, normal appearance (NG tube with vent machine tubes) - Respiratory Respiratory: bilateral: CTA, diminished, negative: wheezing, prolonged expiration - Cardiovascular Rhythm: regular Heart sounds: normal: S1, S2 Abnormal Heart Sounds: Absent: systolic murmur, diastolic murmur, rub, S3 Gallop, S4 Gallop, click, other - Gastrointestinal General gastrointestinal: Present: decreased bowel sounds, distended, soft (Distended) - Integumentary Integumentary: Present: decreased turgor, normal - Neurologic Neurologic: Present: CNII-XII intact - Labs CBC & Chem 7: 04/22/19 04:00 04/22/19 11:45 Labs: Abnormal Lab Results - Last 24 Hours (Table) 04/21/19 04/21/19 04/21/19 Range/Units 15:54 16:52 17:29 RBC (4.30-5.90) m/uL Hgb (13.0-17.5) gm/dL Hct (39.0-53.0) % Lymphocytes # (1.0-4.8) k/uL ABG pH 7.46 H (7.35-7.45) ABG pO2 66 L (83-108) mmHg ABG HCO3 28 H (21-25) mmol/L ABG Total CO2 29 H (19-24) mmol/L ABG O2 Saturation 93.2 L (94-97) % Potassium 3.4 L (3.5-5.1) mmol/L Creatinine (0.66-1.25) mg/dL Glucose (74-99) mg/dL POC Glucose (mg/dL) 112 H (75-99) mg/dL Total Protein (6.3-8.2) g/dL Albumin (3.5-5.0) g/dL 04/21/19 04/22/19 04/22/19 Range/Units 23:37 04:00 04:00 RBC 3.88 L (4.30-5.90) m/uL Hgb 11.8 L (13.0-17.5) gm/dL Hct 35.4 L (39.0-53.0) % Lymphocytes # 0.9 L (1.0-4.8) k/uL ABG pH (7.35-7.45) ABG pO2 (83-108) mmHg ABG HCO3 (21-25) mmol/L ABG Total CO2 (19-24) mmol/L ABG O2 Saturation (94-97) % Potassium (3.5-5.1) mmol/L Creatinine 0.53 L (0.66-1.25) mg/dL Glucose 119 H (74-99) mg/dL POC Glucose (mg/dL) 106 H (75-99) mg/dL Total Protein 5.3 L (6.3-8.2) g/dL Albumin 2.7 L (3.5-5.0) g/dL 04/22/19 04/22/19 Range/Units 05:12 11:43 RBC (4.30-5.90) m/uL Hgb (13.0-17.5) gm/dL Hct (39.0-53.0) % Lymphocytes # (1.0-4.8) k/uL ABG pH 7.46 H (7.35-7.45) ABG pO2 66 L (83-108) mmHg ABG HCO3 28 H (21-25) mmol/L ABG Total CO2 30 H (19-24) mmol/L ABG O2 Saturation 93.1 L (94-97) % Potassium (3.5-5.1) mmol/L Creatinine (0.66-1.25) mg/dL Glucose (74-99) mg/dL POC Glucose (mg/dL) 126 H (75-99) mg/dL Total Protein (6.3-8.2) g/dL Albumin (3.5-5.0) g/dL Microbiology - Last 24 Hours (Table) 04/17/19 08:09 Blood Culture - Preliminary Blood No Growth after 120 hours 04/15/19 22:45 Blood Culture - Final Blood No Growth after 144 hours Assessment and Plan Plan: 1. Acute respiratory distress syndrome most likely secondary to massive aspirated pneumonia, currently vent dependent, in ICU. Being managed by Dr. Caballero FiO2 40%, PEEP of 6, patient still sedated, TPN feedings started 04/20/2019 2. Aspiration pneumonia, IV Zosyn and IV vancomycin, pulmonary medicine for IV antibiotics, bronchial washings April 19 shows normal zander 3 Abdominal pain, possible colitis, possible malignancy of the cecum. Consult with Dr. Aranda. colonoscopy performed 04/20/2019 however there is a very poor visibility secondary to poor prep , scope cannot be advanced proximally secondary to significant tortuosity of the remaining colon, was able to visualize up to mid ascending colon unable to visualize cecum. Continue IV fluids, Zosyn barium enemas planned after patient is extubated. 4. Abdominal distention Ileus, fecaloid material observed at the NG tube, he would get a flat plate abdomen ordered 04/22,Dr. Aranda. 5 Hypertension. Vasotec IV as needed for systolic blood pressure greater than 160. (lisinopril 40 mg daily, hydrochlorothiazide 25 mg daily, verapamil 240 mg daily on hold). Patient 's hypotension has improved with septic shock. Norepinephrine weaned off. 6. Gastroesophageal reflux disease. Continue Protonix. 7. Probable COPD. Continue DuoNeb treatments every 4 hours as needed. 8. Diabetes mellitus type 2, insulin requiring, uncontrolled with hypergl ycemia. Metformin on hold. NovoLog scale before meals and at bedtime. NovoLog scale 9. Generalized anxiety disorder. Citalopram 40 mg daily on hold. 10. Acute hypoxic and hypercapnic respiratory failure with bilateral pulmonary infiltrates and masslike consolidation in the right lower lobe most likely secondary to massive aspiration. Patient has been intubated and placed on mechanical ventilation management by Dr. Caballero. Patient is status post reintubation or exchange of ET tube. Patient is status post bronchoscopy. Specimen sent for cultures and cytology. 11. Obstructive sleep apnea noncompliant with CPAP. 12. Blood culture with coag-negative staph, contamination. 13. Hyperlipidemia. Crestor, niacin and Lopid on hold. 8. DVT prophylaxis. Heparin subcu. Prognosis guarded. Patient remains in critical condition Discharge plan: To be determined.
[2019-04-22] MEDS ORDERED: INSULIN ASPART (NovoLOG) 100 UNIT/ML VIAL SQ SCH (17:45)
[2019-04-22 17:48] LABS: Glucose,Whole Blood 175 mg/dL (75-99)
[2019-04-22] MEDS: MVI, ADULT NO.4 WITH VIT K 10 ML, TRACE (CONC-1ML/DOSE) 1 ML in AMINO ACID 5%-D15W+LYTE... IV SCH ×3 (17:53)
[2019-04-22] MEDS: ENALAPRILAT 1.25 MG/ML 1 ML VIAL IVP PRN (18:33)
[2019-04-23 00:03] LABS: Glucose,Whole Blood 134 mg/dL (75-99)
[2019-04-23] MEDS: HYDROmorphone 1 MG/ML 1 ML SYRINGE IVP PRN ×6 (00:13→21:05)
[2019-04-23] MEDS: PROPOFOL 1,000 MG in EMPTY BAG 1 BAG IV SCH ×12 (00:55→23:42)
[2019-04-23] MEDS: PIPERACILLIN-TAZOBACTAM 3.375 GM in SODIUM CHLORIDE 0.9% 100 ML IVPB SCH ×3 (03:27→20:09)
[2019-04-23] MEDS: IPRATROPIUM-ALBUTEROL 3 ML NEB INHALATION SCH ×6 (03:38→23:14)
[2019-04-23 04:04] LABS: Basophils % (A) 0 %; Eosinophils # (A) 0.1 k/uL (0-0.7); Eosinophils % (A) 1 %; HCT 36.2 % (39.0-53.0); HGB 11.9 gm/dL (13.0-17.5); Lymphocytes # (A) 0.7 k/uL (1.0-4.8); Lymphocytes % (A) 8 %; MCH 30.2 pg (25.0-35.0); MCHC 32.8 g/dL (31.0-37.0); MCV 92.1 fL (80.0-100.0); Mean Platelet Volume 6.4; Monocytes # (A) 0.3 k/uL (0-1.0); Monocytes % (A) 4 %; Neutrophils # (A) 7.2 k/uL (1.3-7.7); Neutrophils % (A) 85 %; Platelet Count 337 k/uL (150-450); RBC 3.93 m/uL (4.30-5.90); RDW 12.8 % (11.5-15.5); WBC 8.5 k/uL (3.8-10.6)
[2019-04-23 04:29] LABS: ALT 48 U/L (21-72); AST 48 U/L (17-59); African American GFR (CKD) >90 (>60 ml/min/1.73 sqM); Albumin 2.9 g/dL (3.5-5.0); Alkaline Phosphatase 71 U/L (38-126); Anion Gap 8 mmol/L; Blood Urea Nitrogen 13 mg/dL (9-20); Calcium 9.2 mg/dL (8.4-10.2); Carbon Dioxide 26 mmol/L (22-30); Chloride 104 mmol/L (98-107); Glucose 164 mg/dL (74-99); Magnesium 2.1 mg/dL (1.6-2.3); Phosphorus 4.1 mg/dL (2.5-4.5); Potassium 4.3 mmol/L (3.5-5.1); Sodium 138 mmol/L (137-145); Total Bilirubin 0.9 mg/dL (0.2-1.3); Total Protein 5.7 g/dL (6.3-8.2)
[2019-04-23 04:42] LABS: ABG Base Excess 3.8 mmol/L; ABG HCO3 28 mmol/L (21-25); ABG Oxygen Saturation 92.6 % (94-97); ABG PCO2 43 mmHg (35-45); ABG PH 7.43 (7.35-7.45); ABG PO2 66 mmHg (83-108); ABG TCO2 29 mmol/L (19-24); Allen Test Performed? Yes
[2019-04-23] MEDS: INSULIN ASPART (NovoLOG) 100 UNIT/ML VIAL SQ SCH ×3 (06:04→18:27)
[2019-04-23] MEDS: ENALAPRILAT 1.25 MG/ML 1 ML VIAL IVP PRN ×2 (06:53→21:06)
[2019-04-23] MEDS ORDERED: VANCOMYCIN TROUGH DUE 1 EACH MISC MISCELLANE ONE (07:00)
[2019-04-23] MEDS: MORPHINE SULFATE 4 MG/ML SYRINGE IV PRN ×2 (07:07→20:13)
[2019-04-23] MEDS: BUDESONIDE 1 MG/2 ML NEBU INHALATION SCH ×2 (07:47→18:56)
--- NOTE | 2019-04-23 07:55 | XR ---
EXAMINATION TYPE: XR chest 1V portable DATE OF EXAM: 04/23/2019 COMPARISON: Prior chest x-ray 04/22/2019 HISTORY: Intubated TECHNIQUE: Single frontal view of the chest is obtained. FINDINGS: Endotracheal tube, orogastric tube, left subclavian central venous catheter are overlying appropriate positions. Heart remains enlarged. Bibasilar increased density persists, the hemidiaphrag ms are obscured. Mixed interstitial and airspace disease suspected in the perihilar locations. Aorta is dense. No evident pneumothorax. IMPRESSION: Findings compatible with congestive heart failure, pneumonia, ARDS not excluded. Follow- up recommended.
--- NOTE | 2019-04-23 08:14 | XR ---
2 view abdomen HISTORY: Abdominal distention, NG tube 2 views of the abdomen on 3 images Lung bases show obscured hemidiaphragms, increased density. Heart size is within normal limits. Incre ased soft tissue density over the abdomen could be indicative of underlying ascites. Orogastric tube shows the distal tip in the region of the distal stomach or proximal small bowel. Colon shows air-corrie led loops, small bowel not seen definitively. IMPRESSION: Basilar atelectasis and possible associated effusions. Paucity of air within the small gabriele wel. Correlate for possible ascites. CT scan abdomen pelvis may be of benefit.
[2019-04-23] MEDS: VANCOMYCIN 2,000 MG in SODIUM CHLORIDE 0.9% 500 ML 500 ML IVPB SCH ×2 (08:28→15:53)
[2019-04-23] MEDS: CHLORHEXIDINE GLUCONATE 15 ML CUP MUCOUS MEM SCH ×2 (09:20→20:02)
[2019-04-23] MEDS: FUROSEMIDE 10 MG/ML 2 ML VIAL IV SCH ×2 (09:20→20:02)
[2019-04-23] MEDS: HEPARIN SODIUM,PORCINE 5,000 UNIT/ML 1 ML VIAL SQ SCH ×2 (09:20→20:02)
[2019-04-23] MEDS: methylPREDNISolone SOD SUCCI 40 MG/ML 1 ML VIAL IV SCH ×2 (09:20→15:53)
[2019-04-23] MEDS: PANTOPRAZOLE 40 MG/10 ML VIAL IV SCH (09:20)
--- NOTE | 2019-04-23 11:20 | P.PN ---
Subjective Progress Note Date: 04/23/19 Principal diagnosis: acute hypoxic and hypercapnic respiratory failure with bilateral pneumonia, suggestive of aspiration pneumonia. And ARDS. patient was evaluated today on 04/23/2019, remains on mechanical ventilation, his ventilator settings are tidal volume of 450 assist-control rate of 26 FiO2 40% and PEEP of 5. Remains on propofol drip at 75 mcg/kg/m, remains on TPN.ABG this morning showed a pO2 of 66 pCO2 of 43 pH of 7.43, electrolytes are normal renal profile is normal CBC is normal. Patient is sedated, he continues to have significant airspace disease in both lungs, hence I will not attempt to wean and x-rayed the patient today, he continues to have significant issues related to his abdomen being addressed by surgery on the case, and he continues to have sig nificant airspace disease based on the chest x-ray today. Oxygenation seems to be a bit improving. Objective - Vital Signs Vital signs: Vital Signs Temp 97.9 F 04/23/19 08:00 Pulse 53 L 04/23/19 11:00 Resp 26 H 04/23/19 11:00 BP 111/62 04/23/19 11:00 Pulse Ox 92 L 04/23/19 11:00 Intake & Output 04/22/19 04/23/19 04/23/19 18:59 06:59 18:59 Intake Total 3153.045 3983.673 7746.624 Output Total 4245 2700 1055 Balance -1091.955 -1373.904 13.624 Weight 115.6 kg 115.6 kg Intake: IV 779 778 826 Mvi, Adult No.4 with Vit 90 K 10 ml Trace (Conc-1Ml/ Dose) 1 ml In Amino Acid 5%-D15w+Lytes*E* 1,000 ml @ 30 mls/hr IV .Q24H [facility] Rx#:[id number] Mvi, Adult No.4 with Vit 336 502 210 K 10 ml Trace (Conc-1Ml/ Dose) 1 ml In Amino Acid 5%-D15w+Lytes*E* 1,000 ml @ 42 mls/hr IV .Q24H [facility] Rx#:[id number] Piperacillin-Tazobactam 3 100 .375 gm In Sodium Chloride 0.9% 100 ml @ 25 mls/hr IVPB Q8H [facility] Rx#: [id number] Sodium Chloride 0.9% 1, 220 240 100 000 ml @ 20 mls/hr IV . Q24H [facility] Rx#:[id number] Vancomycin 2,000 mg In 501 Sodium Chloride 0.9% 500 ml 500 ml @ 167 mls/hr IVPB Q8HR [facility] Rx#: [id number] pressure bag 33 36 15 Intake, IV Titration 2374.045 548.096 242.624 Amount Mvi, Adult No.4 with Vit 705 K 10 ml Trace (Conc-1Ml/ Dose) 1 ml In Amino Acid 5%-D15w+Lytes*E* 1,000 ml @ 30 mls/hr IV .Q24H [facility] Rx#:[id number] Potassium Chloride 20 meq 100 In Water For Injection 1 100ml.bag @ 50 mls/hr IVPB Q2H [facility] Rx#: [id number] Potassium Chloride 20 meq 200 In Water For Injection 1 100ml.bag @ 50 mls/hr IVPB Q2H [facility] Rx#: [id number] Propofol 1,000 mg In 369.045 548.096 242.624 Empty Bag 1 bag @ Titrate IV .Q0M [facility] Rx#: [id number] Vancomycin 2,000 mg In 1000 Sodium Chloride 0.9% 500 ml 500 ml @ 167 mls/hr IVPB Q8HR [facility] Rx#: [id number] Output: Gastric Drainage 950 500 Urine 3295 2200 1055 Other: Voiding Method Indwelling Catheter Indwelling Catheter ABP, PAP, CO, CI - Last Documented Arterial Blood Pressure 107/50 - Exam Physical Exam: Revealed a 69-year-old white male intubated, on mechanical ventilation, nasogastric tube and orogastric tube are intact. Patient is sedated, and on propofol. Head: Atraumatic, normocephalic. HEENT:[Neck is supple.] [No neck masses.] [No thyromegaly.] [No JVD.]PERRLA, EOMI, no icterus. Left subclavian triple-lumen catheter is noted. Chest: [crackles and rhonchi noted bilaterally with scattered expiratory wheez ing.] Cardiac Exam: [Normal S1 and S2, no S3 gallop, no murmur.] Abdomen: [slightly distended, no tenderness, no rebound, no guarding, diminished bowel sounds. Extremities: [No clubbing, trace of bipedal edema, no cyanosis.] Neurological Exam: could not be assessed, patient is on propofol, sedated. Lymphatics: No lymphadenopathy. Psychiatric: Could not be addressed or assessed.] - Labs CBC & Chem 7: 04/23/19 03:35 04/23/19 03:35 Labs: Abnormal Lab Results - Last 24 Hours (Table) 04/22/19 04/22/19 04/22/19 Range/Units 11:43 17:37 23:51 RBC (4.30-5.90) m/uL Hgb (13.0-17.5) gm/dL Hct (39.0-53.0) % Lymphocytes # (1.0-4.8) k/uL ABG pO2 (83-108) mmHg ABG HCO3 (21-25) mmol/L ABG Total CO2 (19-24) mmol/L ABG O2 Saturation (94-97) % Creatinine (0.66-1.25) mg/dL Glucose (74-99) mg/dL POC Glucose (mg/dL) 126 H 175 H 134 H (75-99) mg/dL Total Protein (6.3-8.2) g/dL Albumin (3.5-5.0) g/dL 04/23/19 04/23/19 04/23/19 Range/Units 03:35 03:35 04:38 RBC 3.93 L (4.30-5.90) m/uL Hgb 11.9 L (13.0-17.5) gm/dL Hct 36.2 L (39.0-53.0) % Lymphocytes # 0.7 L (1.0-4.8) k/uL ABG pO2 66 L (83-108) mmHg ABG HCO3 28 H (21-25) mmol/L ABG Total CO2 29 H (19-24) mmol/L ABG O2 Saturation 92.6 L (94-97) % Creatinine 0.55 L (0.66-1.25) mg/dL Glucose 164 H (74-99) mg/dL POC Glucose (mg/dL) (75-99) mg/dL Total Protein 5.7 L (6.3-8.2) g/dL Albumin 2.9 L (3.5-5.0) g/dL Microbiology - Last 24 Hours (Table) 04/17/19 08:09 Blood Culture - Final Blood No Growth after 144 hours Assessment and Plan Assessment: impression: Acute hypoxic and hypercapnic respiratory failure secondary to bilateral pneumonia possibly aspiration related, and evolving ARDS. Abdominal distention, being addressed by Dr. dao, patient may have a cecal mass eventually Dr. dao is recommending a barium enema. Previous colonoscopies where unsuccessful. In the meantime the patient remains on TPN for nutritional support. Hypertension, blood pressure seems to be an issue this morning, hence I added Apresoline 20 mg IV push every 6 hours when necessary. History of alcoholism Obstructive sleep apnea syndrome Abdominal pain with evidence of colitis or possible malignancy, colonoscopy was unsuccessful. Recommendation: We keep the patient on mechanical ventilation, ventilator settings were adjusted, considering his blood pressure is poorly controlled, will start the patient on Apresoline, continue propofol, continue pain meds, patient is not quite ready for weaning. Continue TPN, continue GI and DVT prophylaxis, discussed his condition with Dr. dao, his chest x-ray is still c oncerning to me, will start weaning trials possibly in the next 24 hours depending on his overall condition. Prognosis remains extremely poor and guarded. Critical care time is 35 minutes. Time with Patient: Greater than 30
--- NOTE | 2019-04-23 11:47 | P.PN ---
Subjective Progress Note Date: 04/23/19 Principal diagnosis: Right-sided colonic wall thickening Patient remains on the ventilator. Not weaning well at this time. Chest x-ray apparently still looks poor. No bowel movement. Remains on TPN. Objective - Vital Signs Vital signs: Vital Signs Temp 97.9 F 04/23/19 08:00 Pulse 57 L 04/23/19 11:30 Resp 26 H 04/23/19 11:00 BP 111/62 04/23/19 11:00 Pulse Ox 92 L 04/23/19 11:00 Intake & Output 04/22/19 04/23/19 04/23/19 18:59 06:59 18:59 Intake Total 3153.045 1349.722 1650.624 Output Total 4245 2700 1055 Balance -1091.955 -1373.904 13.624 Weight 115.6 kg 115.6 kg Intake: IV 779 778 826 Mvi, Adult No.4 with Vit 90 K 10 ml Trace (Conc-1Ml/ Dose) 1 ml In Amino Acid 5%-D15w+Lytes*E* 1,000 ml @ 30 mls/hr IV .Q24H [facility] Rx#:[id number] Mvi, Adult No.4 with Vit 336 502 210 K 10 ml Trace (Conc-1Ml/ Dose) 1 ml In Amino Acid 5%-D15w+Lytes*E* 1,000 ml @ 42 mls/hr IV .Q24H [facility] Rx#:[id number] Piperacillin-Tazobactam 3 100 .375 gm In Sodium Chloride 0.9% 100 ml @ 25 mls/hr IVPB Q8H [facility] Rx#: [id number] Sodium Chloride 0.9% 1, 220 240 100 000 ml @ 20 mls/hr IV . Q24H [facility] Rx#:[id number] Vancomycin 2,000 mg In 501 Sodium Chloride 0.9% 500 ml 500 ml @ 167 mls/hr IVPB Q8HR [facility] Rx#: [id number] pressure bag 33 36 15 Intake, IV Titration 2374.045 548.096 242.624 Amount Mvi, Adult No.4 with Vit 705 K 10 ml Trace (Conc-1Ml/ Dose) 1 ml In Amino Acid 5%-D15w+Lytes*E* 1,000 ml @ 30 mls/hr IV .Q24H [facility] Rx#:[id number] Potassium Chloride 20 meq 100 In Water For Injection 1 100ml.bag @ 50 mls/hr IVPB Q2H [facility] Rx#: [id number] Potassium Chloride 20 meq 200 In Water For Injection 1 100ml.bag @ 50 mls/hr IVPB Q2H [facility] Rx#: [id number] Propofol 1,000 mg In 369.045 548.096 242.624 Empty Bag 1 bag @ Titrate IV .Q0M [facility] Rx#: [id number] Vancomycin 2,000 mg In 1000 Sodium Chloride 0.9% 500 ml 500 ml @ 167 mls/hr IVPB Q8HR [facility] Rx#: [id number] Output: Gastric Drainage 950 500 Urine 3295 2200 1055 Other: Voiding Method Indwelling Catheter Indwelling Catheter ABP, PAP, CO, CI - Last Documented Arterial Blood Pressure 107/50 - Exam Abdomen: Soft, mild distention, nontender - Labs CBC & Chem 7: 04/23/19 03:35 04/23/19 03:35 Labs: Abnormal Lab Results - Last 24 Hours (Table) 04/22/19 04/22/19 04/22/19 Range/Units 11:43 17:37 23:51 RBC (4.30-5.90) m/uL Hgb (13.0-17.5) gm/dL Hct (39.0-53.0) % Lymphocytes # (1.0-4.8) k/uL ABG pO2 (83-108) mmHg ABG HCO3 (21-25) mmol/L ABG Total CO2 (19-24) mmol/L ABG O2 Saturation (94-97) % Creatinine (0.66-1.25) mg/dL Glucose (74-99) mg/dL POC Glucose (mg/dL) 126 H 175 H 134 H (75-99) mg/dL Total Protein (6.3-8.2) g/dL Albumin (3.5-5.0) g/dL 04/23/19 04/23/19 04/23/19 Range/Units 03:35 03:35 04:38 RBC 3.93 L (4.30-5.90) m/uL Hgb 11.9 L (13.0-17.5) gm/dL Hct 36.2 L (39.0-53.0) % Lymphocytes # 0.7 L (1.0-4.8) k/uL ABG pO2 66 L (83-108) mmHg ABG HCO3 28 H (21-25) mmol/L ABG Total CO2 29 H (19-24) mmol/L ABG O2 Saturation 92.6 L (94-97) % Creatinine 0.55 L (0.66-1.25) mg/dL Glucose 164 H (74-99) mg/dL POC Glucose (mg/dL) (75-99) mg/dL Total Protein 5.7 L (6.3-8.2) g/dL Albumin 2.9 L (3.5-5.0) g/dL Microbiology - Last 24 Hours (Table) 04/17/19 08:09 Blood Culture - Final Blood No Growth after 144 hours Assessment and Plan (1) Colitis Narrative/Plan: Continue ventilatory weaning per pulmonary. Keep nothing by mouth with gastric tube to suction. Continue TPN. Current Visit: Yes Status: Acute Code(s): K52.9 - NONINFECTIVE GASTROENTERITIS AND COLITIS, UNSPECIFIED SNOMED Code(s): 99330093
[2019-04-23 12:12] LABS: Glucose,Whole Blood 143 mg/dL (75-99)
[2019-04-23] MEDS: SODIUM CHLORIDE 0.9% 1,000 ML IV SCH (12:32)
--- NOTE | 2019-04-23 13:00 | P.PN ---
Subjective Progress Note Date: 04/23/19 This is a 69-year-old male patient of Dr. Gallardo with past medical history of hypertension, hyperlipidemia, COPD, gastroesophageal reflux disease, remote history of tobacco use, obstructive sleep apnea not using CPAP. Patient complains of sudden onset of abdominal pain starting on Tuesday. He also complains of bloating in the abdomen for the past couple months as well as weight loss of 5-10 pounds over the past 3 months. He complains of decreased appetite. He states he has had occasional burgundy stools. He denies any black stools, no diarrhea, no vomiting. He denies any urinary symptoms. Patient states he had his last colonoscopy in 2013 which was normal. Patient presents to [facility] emergency center for evaluation. Abdominal x-ray shows no acute findings. CAT scan of the abdomen and pelvis showed marked thickening of the cecum concerning for malignancy. A nonspecific colitis is not excluded but felt to be less likely. Thickening in the gastric rugae which may be secondary to under distention versus a nonspecific gastritis. EKG is a sinus tachycardia with right bundle branch block, left AFB. WBC 16.7, hemoglobin 14.7, creatinine 0.74. Troponin negative. Amylase and lipase, liver function tests all normal. Urinalysis was clear with 1+ protein. Patient was admitted to the [facility] floor, consult with Dr. Givens, IV fluids, pain medications and Zofran. Plan is for colonoscopy tomorrow. 04/17: Overnight, patient developed acute respiratory failure and was transferred to the intensive care unit and patient placed on BiPAP, currently under care of Dr. Caballero. Patient subsequently intubated and placed on mechanical ventilation. Echocardiogram from yesterday reveals EF 55-60% with moderate concentric left ventricle hypertrophy, trace mitral regurgitation, trace tricuspid regurgitation, no pulmonary hypertension. No pericardial effusion. Chest x-ray shows new right basilar and pneumonic consolidation with diminished inspiration background right hilar and left basilar more patchy edema and or infiltrate felt present. Repeat chest x-ray shows new endotracheal tube with placement described with recommendations to pullback. Mild cardiomegaly and low lung volumes with bilateral hilar edema and/or infiltrate and right basilar consolidation all redemonstrated increasing left basilar infiltrate felt present. Abdomen was more distended and NG tube was placed. Immediate surgical consultation was requested by Dr. Caballero. Dr. Givens attempted bedside colonoscopy but patient was not properly prepped. He is scheduled for CAT scan of the abdomen and pelvis this afternoon at 2:30. NG tube is in place with bile color returned. Family members are in the waiting room and have been updated. 04/18: The patient remains in intensive care unit intubated and on mechanical ventilation. Vent settings have been decreased and no plan for sedation holiday today. He was weaned off norepinephrine this morning. Urine output has been 50-75 mL per hour. Noted that the Goldberg tube is pink but urine is alesia most likely a drug reaction. Patient has had several bowel movements this morning. Antibiotics have been switched to Zosyn and vancomycin. TSH 0.224 with normal free T4 at 1.24. Surgical consultation has been changed to Dr. Aranda per family wishes. 04/19: Patient remains in intensive care unit intubated and on mechanical ventilation. Patient has had increased purulent secretions and underwent reintubation by Dr. Caballero. He also perform bronchoscopy at the bedside and suction 20 ML's purulent material specimen was sent to the lab for cytology and culture. He is concern for ARDS. Patient is continued on Zosyn and vancomycin. He has been off vasopressors since yesterday morning. Patient has had a small amount of liquid stool today much decreased from yesterday. Dr. Aranda is on for surgery at this point. Patient is having minimal output from NG tube. Bowel sounds remain hypoactive. Consult has been added for GI regarding concern for ischemic colitis. 04/20: Patient remains intubated and on mechanical ventilation. Repeat chest x- ray shows continued mild to moderate heart failure. Small to moderate effusions with prominent bibasilar atelectasis and/or consolidation persists. Dr. Aranda is planning for bedside colonoscopy today. Patient was ordered for soapsuds enema last night and this morning. Tube feedings on hold. He has been afebrile, heart rate in the 50s and 60s, blood pressure 141/66. Pulse ox 99%. WBC 8.1, hemoglobin 11.2. Creatinine 0.65. Bronchial washing cytology is pending. Bronchial cultures in progress. Patient will need to start tube feedings or TPN depending on results of colonoscopy scheduled for this afternoon. Patient was given 1 dose of IV Lasix this morning and is diuresing well. Family in the waiting room have been updated. 04/21: Patient remains in the bed, FiO2 40%, PEEP of 6, NG tube has been placed and had taken out the OG tube, fecaloid billous contents are observed in the NG tube, bowel sounds are very diminished today, no bowel movements over the past 24 hours, x-rays of the abdomen will be done to evaluate for progressive bowel o bstruction, patient remains to be afebrile, no leukocytosis bronchial washing cultures shows no normal zander vital signs are stable no hypotensive events, patient is slightly hypotensive on IV Solu-Medrol 40 every 8 04/22: Patient remains intubated and on mechanical ventilation. Dr. Dunham does not plan for attempt at weaning today. He is started him on hydralazine for blood pressure control. Patient has been started on TPN. On Tuesday, patient underwent colonoscopy with Dr. Meneses that revealed reticulosis, tortuous colon and recommends once patient is off ventilation to have barium enema to evaluate the ileocecal valve. Keep NG tube post extubation and hold tube feedings for now. No bowel movement today. Objective - Vital Signs Vital signs: Vital Signs Temp 99.0 F 04/23/19 12:00 Pulse 56 L 04/23/19 12:00 Resp 26 H 04/23/19 12:00 BP 111/62 04/23/19 11:00 Pulse Ox 94 L 04/23/19 12:00 Intake & Output 04/22/19 04/23/19 04/23/19 18:59 06:59 18:59 Intake Total 3153.045 6812.705 5046.000 Output Total 4245 2700 1055 Balance -1091.955 -1373.904 71.000 Weight 115.6 kg 115.6 kg Intake: IV 779 778 826 Mvi, Adult No.4 with Vit 90 K 10 ml Trace (Conc-1Ml/ Dose) 1 ml In Amino Acid 5%-D15w+Lytes*E* 1,000 ml @ 30 mls/hr IV .Q24H [facility] Rx#:[id number] Mvi, Adult No.4 with Vit 336 502 210 K 10 ml Trace (Conc-1Ml/ Dose) 1 ml In Amino Acid 5%-D15w+Lytes*E* 1,000 ml @ 42 mls/hr IV .Q24H [facility] Rx#:[id number] Piperacillin-Tazobactam 3 100 .375 gm In Sodium Chloride 0.9% 100 ml @ 25 mls/hr IVPB Q8H [facility] Rx#: [id number] Sodium Chloride 0.9% 1, 220 240 100 000 ml @ 20 mls/hr IV . Q24H [facility] Rx#:[id number] Vancomycin 2,000 mg In 501 Sodium Chloride 0.9% 500 ml 500 ml @ 167 mls/hr IVPB Q8HR [facility] Rx#: [id number] pressure bag 33 36 15 Intake, IV Titration 2374.045 548.096 300.000 Amount Mvi, Adult No.4 with Vit 705 K 10 ml Trace (Conc-1Ml/ Dose) 1 ml In Amino Acid 5%-D15w+Lytes*E* 1,000 ml @ 30 mls/hr IV .Q24H [facility] Rx#:[id number] Potassium Chloride 20 meq 100 In Water For Injection 1 100ml.bag @ 50 mls/hr IVPB Q2H [facility] Rx#: [id number] Potassium Chloride 20 meq 200 In Water For Injection 1 100ml.bag @ 50 mls/hr IVPB Q2H [facility] Rx#: [id number] Propofol 1,000 mg In 369.045 548.096 300.000 Empty Bag 1 bag @ Titrate IV .Q0M [facility] Rx#: [id number] Vancomycin 2,000 mg In 1000 Sodium Chloride 0.9% 500 ml 500 ml @ 167 mls/hr IVPB Q8HR [facility] Rx#: [id number] Output: Gastric Drainage 950 500 Urine 3295 2200 1055 Other: Voiding Method Indwelling Catheter Indwelling Catheter ABP, PAP, CO, CI - Last Documented Arterial Blood Pressure 130/59 - Exam Review of Systems All systems: Unable to be obtained due to intubation Physical exam: Gen: This is an obese 69-year-old male. Patient is resting in ICU bed and appears to be comfortable. He is intubated and on mechanical ventilation. HEENT: Head is atraumatic, normocephalic. Pupils equal, round. Sclerae is anicteric. NG tube in place. NECK: Supple. No JVD. No lymphadenopathy. No thyromegaly. LUNGS: Scattered rhonchi and expiratory wheeze. No intercostal retractions. HEART: Regular rate and rhythm. No murmur. ABDOMEN: Distended Bowel sounds are hypoactive and high-pitched. No masses. No tenderness. Goldberg catheter with tea-colored urine. EXTREMITIES: No pedal edema. No calf tenderness. NEUROLOGICAL: Patient is on mechanical ventilation. - Labs CBC & Chem 7: 04/23/19 03:35 04/23/19 03:35 Labs: Abnormal Lab Results - Last 24 Hours (Table) 04/22/19 04/22/19 04/23/19 Range/Units 17:37 23:51 03:35 RBC (4.30-5.90) m/uL Hgb (13.0-17.5) gm/dL Hct (39.0-53.0) % Lymphocytes # (1.0-4.8) k/uL ABG pO2 (83-108) mmHg ABG HCO3 (21-25) mmol/L ABG Total CO2 (19-24) mmol/L ABG O2 Saturation (94-97) % Creatinine 0.55 L (0.66-1.25) mg/dL Glucose 164 H (74-99) mg/dL POC Glucose (mg/dL) 175 H 134 H (75-99) mg/dL Total Protein 5.7 L (6.3-8.2) g/dL Albumin 2.9 L (3.5-5.0) g/dL 04/23/19 04/23/19 04/23/19 Range/Units 03:35 04:38 12:00 RBC 3.93 L (4.30-5.90) m/uL Hgb 11.9 L (13.0-17.5) gm/dL Hct 36.2 L (39.0-53.0) % Lymphocytes # 0.7 L (1.0-4.8) k/uL ABG pO2 66 L (83-108) mmHg ABG HCO3 28 H (21-25) mmol/L ABG Total CO2 29 H (19-24) mmol/L ABG O2 Saturation 92.6 L (94-97) % Creatinine (0.66-1.25) mg/dL Glucose (74-99) mg/dL POC Glucose (mg/dL) 143 H (75-99) mg/dL Total Protein (6.3-8.2) g/dL Albumin (3.5-5.0) g/dL Microbiology - Last 24 Hours (Table) 04/17/19 08:09 Blood Culture - Final Blood No Growth after 144 hours Assessment and Plan Plan: 1. Abdominal pain, possible colitis, possible malignancy of the cecum. Consult with Dr. Aranda. Plan for colonoscopy today. Continue IV fluids, Zosyn. Barium study plan once patient is extubated. 2. Hypertension. Vasotec IV as needed for systolic blood pressure greater than 160. Hydralazine also added (lisinopril 40 mg daily, hydrochlorothiazide 25 mg daily, verapamil 240 mg daily on hold). Patient was hypotensive requiring norepinephrine which has been weaned off. 3. Hyperlipidemia. Crestor, niacin and Lopid on hold. 4. Gastroesophageal reflux disease. Continue Protonix. 5. Probable COPD. Continue DuoNeb treatments every 4 hours as needed. 6. Diabetes mellitus type 2, insulin requiring, uncontrolled with hyperglycemia. Metformin on hold. NovoLog scale before meals and at bedtime. NovoLog scale 7. Generalized anxiety disorder. Citalopram 40 mg daily on hold. 8. DVT prophylaxis. Heparin subcu. 9. Acute hypoxic and hypercapnic respiratory failure with bilateral pulmonary infiltrates and masslike consolidation in the right lower lobe most likely secondary to massive aspiration pneumonia, acute respiratory distress syndrome. Patient has been intubated and placed on mechanical ventilation management by Dr. Clarke. Patient is status post reintubation or exchange of ET tube. Patient is status post bronchoscopy. Specimen sent for cultures and cytology. 10. Abdominal distention secondary to ileus. Continue NG tube. Consult with Dr. Aranda appreciated. 11. Obstructive sleep apnea noncompliant with CPAP. 12. Blood culture with coag-negative staph, contamination. Prognosis guarded. Discharge plan: To be determined. Impression and plan of care have been directed as dictated by the signing physician. Destini Navarro nurse practitioner acting as scribe for signing physician.
[2019-04-23] MEDS: MVI, ADULT NO.4 WITH VIT K 10 ML, TRACE (CONC-1ML/DOSE) 1 ML in AMINO ACID 5%-D15W+LYTE... IV SCH ×3 (17:45)
[2019-04-23 18:36] LABS: Glucose,Whole Blood 159 mg/dL (75-99)
[2019-04-23] MEDS: hydrALAZINE HCL 20 MG/ML 1 ML VIAL IVP PRN (19:53)
[2019-04-23] MEDS ORDERED: CISATRACURIUM 2 MG/ML 5 ML VIAL IV ONE (20:31)
[2019-04-23] MEDS: CISATRACURIUM 200 MG in SODIUM CHLORIDE 0.9% 180 ML IV SCH (20:52)
[2019-04-23 21:12] LABS: ABG Base Excess 4.2 mmol/L; ABG HCO3 29 mmol/L (21-25); ABG PCO2 44 mmHg (35-45); ABG PH 7.43 (7.35-7.45); ABG PO2 74 mmHg (83-108); ABG TCO2 30 mmol/L (19-24)
[2019-04-23 21:18] LABS: Allen Test Performed? no
--- NOTE | 2019-04-23 21:21 | XR ---
EXAMINATION TYPE: XR chest 1V portable DATE OF EXAM: 04/23/2019 COMPARISON: Today HISTORY: Short of breath TECHNIQUE: Single frontal view of the chest is obtained. FINDINGS: Endotracheal tube is 3.5 cm from the mary. There is pulmonary edema. There is blunting o f costophrenic angles. There is left subclavian catheter with the tip in the superior vena cava. Ther e is nasogastric tube. There are chest leads. IMPRESSION: Congestive heart failure with pleural effusions and pulmonary edema unchanged.
[2019-04-23] MEDS: fentaNYL (PF) 1,000 MCG in SODIUM CHLORIDE 0.9% 80 ML IV SCH (23:43)
[2019-04-24] MEDS: ARTIFICIAL TEARS-HYPROMELLOSE DROPS 15 ML BTL BOTH EYES SCH ×6 (00:01→20:38)
[2019-04-24] MEDS: INSULIN ASPART (NovoLOG) 100 UNIT/ML VIAL SQ SCH ×4 (00:01→18:25)
[2019-04-24] MEDS: VANCOMYCIN 2,000 MG in SODIUM CHLORIDE 0.9% 500 ML 500 ML IVPB SCH ×3 (00:05→16:25)
[2019-04-24 00:08] LABS: Glucose,Whole Blood 145 mg/dL (75-99)
[2019-04-24] MEDS: hydrALAZINE HCL 20 MG/ML 1 ML VIAL IVP PRN (01:04)
[2019-04-24] MEDS: LABETALOL 200 MG in SODIUM CHLORIDE 0.9% 160 ML IV SCH ×12 (02:21→21:11)
[2019-04-24] MEDS: PROPOFOL 1,000 MG in EMPTY BAG 1 BAG IV SCH ×9 (02:23→23:00)
[2019-04-24] MEDS: IPRATROPIUM-ALBUTEROL 3 ML NEB INHALATION SCH ×6 (03:09→23:45)
[2019-04-24] MEDS: PIPERACILLIN-TAZOBACTAM 3.375 GM in SODIUM CHLORIDE 0.9% 100 ML IVPB SCH ×3 (04:46→21:19)
[2019-04-24] MEDS: ENALAPRILAT 1.25 MG/ML 1 ML VIAL IVP PRN ×2 (04:46→20:00)
[2019-04-24 05:57] LABS: Ionized Calcium 5.3 mg/dL (4.5-5.3)
[2019-04-24 06:07] LABS: ALT 97 U/L (21-72); AST 96 U/L (17-59); African American GFR (CKD) >90 (>60 ml/min/1.73 sqM); Albumin 3.1 g/dL (3.5-5.0); Alkaline Phosphatase 76 U/L (38-126); Anion Gap 6 mmol/L; Blood Urea Nitrogen 18 mg/dL (9-20); Calcium 9.1 mg/dL (8.4-10.2); Carbon Dioxide 28 mmol/L (22-30); Chloride 104 mmol/L (98-107); Glucose 192 mg/dL (74-99); Phosphorus 3.7 mg/dL (2.5-4.5); Potassium 3.8 mmol/L (3.5-5.1); Sodium 138 mmol/L (137-145); Total Bilirubin 0.9 mg/dL (0.2-1.3); Total Protein 5.9 g/dL (6.3-8.2)
[2019-04-24 06:14] LABS: Glucose,Whole Blood 183 mg/dL (75-99)
[2019-04-24] MEDS: BUDESONIDE 1 MG/2 ML NEBU INHALATION SCH ×2 (07:06→19:20)
[2019-04-24 07:16] LABS: ABG Base Excess 3.5 mmol/L; ABG HCO3 29 mmol/L (21-25); ABG Oxygen Saturation 93.2 % (94-97); ABG PCO2 47 mmHg (35-45); ABG PH 7.39 (7.35-7.45); ABG PO2 72 mmHg (83-108); ABG TCO2 30 mmol/L (19-24); Allen Test Performed? Yes
[2019-04-24] MEDS: fentaNYL (PF) 1,000 MCG in SODIUM CHLORIDE 0.9% 80 ML IV SCH ×2 (07:23→21:11)
[2019-04-24 08:30] LABS: Glucose,Whole Blood 164 mg/dL (75-99)
[2019-04-24] MEDS: CHLORHEXIDINE GLUCONATE 15 ML CUP MUCOUS MEM SCH ×2 (08:41→21:19)
[2019-04-24] MEDS: HEPARIN SODIUM,PORCINE 5,000 UNIT/ML 1 ML VIAL SQ SCH ×2 (08:41→21:20)
[2019-04-24] MEDS: methylPREDNISolone SOD SUCCI 40 MG/ML 1 ML VIAL IV SCH ×3 (08:41→16:25)
[2019-04-24] MEDS: PANTOPRAZOLE 40 MG/10 ML VIAL IV SCH (08:41)
[2019-04-24] MEDS: POTASSIUM CHLORIDE 10 MEQ in WATER FOR INJECTION 1 100ML.BAG IVPB SCH ×2 (08:42→10:30)
--- NOTE | 2019-04-24 08:47 | XR ---
EXAMINATION TYPE: XR chest 1V portable DATE OF EXAM: 04/24/2019 COMPARISON: 04/23/2019 HISTORY: Shortness of breath TECHNIQUE: Single frontal view of the chest is obtained. FINDINGS: Endotracheal tube is 3.5 cm from the mary. There is pulmonary edema. There is blunting o f costophrenic angles. There is left subclavian catheter with the tip in the superior vena cava. Ther e is nasogastric tube. There are chest leads. IMPRESSION: Bilateral infiltrate and pleural effusion stable. Correlate for pulmonary edema versus d iffuse pneumonia.
[2019-04-24 09:09] LABS: Basophils % (A) 0 %; Eosinophils # (A) 0.1 k/uL (0-0.7); Eosinophils % (A) 1 %; HCT 38.3 % (39.0-53.0); Lymphocytes # (A) 0.8 k/uL (1.0-4.8); Lymphocytes % (A) 9 %; MCH 29.4 pg (25.0-35.0); MCHC 31.3 g/dL (31.0-37.0); Mean Platelet Volume 7.3; Monocytes # (A) 0.4 k/uL (0-1.0); Monocytes % (A) 4 %; Neutrophils # (A) 7.3 k/uL (1.3-7.7); Neutrophils % (A) 84 %; Platelet Count 386 k/uL (150-450); RBC 4.08 m/uL (4.30-5.90); RDW 13.7 % (11.5-15.5); WBC 8.7 k/uL (3.8-10.6)
[2019-04-24] MEDS: FUROSEMIDE 10 MG/ML 4 ML VIAL IV SCH ×2 (09:28→21:20)
[2019-04-24] MEDS: MORPHINE SULFATE 4 MG/ML SYRINGE IV PRN (10:29)
--- NOTE | 2019-04-24 11:33 | P.PN ---
Subjective Progress Note Date: 04/24/19 Principal diagnosis: acute hypoxic and hypercapnic respiratory failure with bilateral pneumonia, suggestive of aspiration pneumonia. And ARDS. patient was evaluated today on 04/23/2019, remains on mechanical ventilation, his ventilator settings are tidal volume of 450 assist-control rate of 26 FiO2 40% and PEEP of 5. Remains on propofol drip at 75 mcg/kg/m, remains on TPN.ABG this morning showed a pO2 of 66 pCO2 of 43 pH of 7.43, electrolytes are normal renal profile is normal CBC is normal. Patient is sedated, he continues to have significant airspace disease in both lungs, hence I will not attempt to wean and x-rayed the patient today, he continues to have significant issues related to his abdomen being addressed by surgery on the case, and he continues to have sig nificant airspace disease based on the chest x-ray today. Oxygenation seems to be a bit improving. Patient was reevaluated today on 04/24/2019, he had significant issues last night mostly extreme agitation, elevated blood pressure, significant tachypnea and tachycardia, patient required to be placed on Nimbex to adequately ventilate him, he also required labetalol drip, and he required placement on fentanyl drip which is presently at 0.5 mcg/kg/h. His labetalol drip was discontinued this morning. Blood pressure seems to be better controlled, and the heart rate seems to be better controlled. Plan to discontinue Nimbex if I can. And will continue fentanyl and propofol which is presently at 75 mcg/kg/m. Patient is calm today, his ventilator settings are assist control rate of 26 tidal volume of 450 FiO2 of 40% and PEEP of 5. Peak airway pressure is 37 plateau pressures are 18. ABG this morning showed a pO2 of 72 pCO2 of 47 pH of 7.39 and this is on a 40% FiO2. Electrolytes and renal profile are normal, chest x-ray continues to show worsening interstitial infiltrates bilaterally, possibility of interstitial edema is likely, hence I recommended a trial of higher dose of Lasix 40 mg IV push every 12 hours. His CBC is relatively normal, patient continues to have no bowel movements and he continues to have no bowel sounds. Remains on TPN, and his nasogastric tube is on low intermittent suctioning. Objective - Vital Signs Vital signs: Vital Signs Temp 97.6 F 04/24/19 08:00 Pulse 52 L 04/24/19 10:00 Resp 26 H 04/24/19 10:00 BP 103/58 04/24/19 08:00 Pulse Ox 97 04/24/19 10:00 Intake & Output 04/23/19 04/24/19 04/24/19 18:59 06:59 18:59 Intake Total 3452.026 2124.783 1262.315 Output Total 2310 2855 825 Balance 1142.026 -730.217 437.315 Weight 115.6 kg Intake: IV 1882 1388 694 Mvi, Adult No.4 with Vit 504 537 168 K 10 ml Trace (Conc-1Ml/ Dose) 1 ml In Amino Acid 5%-D15w+Lytes*E* 1,000 ml @ 42 mls/hr IV .Q24H [facility] Rx#:[id number] Piperacillin-Tazobactam 3 100 75 .375 gm In Sodium Chloride 0.9% 100 ml @ 25 mls/hr IVPB Q8H [facility] Rx#: [id number] Potassium Chloride 10 meq 100 In Water For Injection 1 100ml.bag @ 100 mls/hr IVPB Q1H [facility] Rx#: [id number] Sodium Chloride 0.9% 1, 240 240 80 000 ml @ 20 mls/hr IV . Q24H [facility] Rx#:[id number] Vancomycin 2,000 mg In 1002 500 334 Sodium Chloride 0.9% 500 ml 500 ml @ 167 mls/hr IVPB Q8HR [facility] Rx#: [id number] pressure bag 36 36 12 Intake, IV Titration 1570.026 736.783 568.315 Amount Cisatracurium 200 mg In 43.466 96.873 Sodium Chloride 0.9% 180 ml @ 1 MCG/KG/MIN 6.936 mls/hr IV .Q24H [facility] Rx#: [id number] Labetalol 200 mg In 278 201.5 Sodium Chloride 0.9% 160 ml @ 2 MG/MIN 120 mls/hr IV .Q1H40M [facility] Rx#: [id number] Mvi, Adult No.4 with Vit 1002.4 K 10 ml Trace (Conc-1Ml/ Dose) 1 ml In Amino Acid 5%-D15w+Lytes*E* 1,000 ml @ 42 mls/hr IV .Q24H [facility] Rx#:[id number] Propofol 1,000 mg In 567.626 400 200 Empty Bag 1 bag @ Titrate IV .Q0M [facility] Rx#: [id number] fentaNYL (PF) 1,000 mcg 15.317 69.942 In Sodium Chloride 0.9% 80 ml @ 0.5 MCG/KG/HR 5. 78 mls/hr IV .[id number] [facility] Rx#:[id number] Output: Gastric Drainage 350 350 300 Urine 1960 2505 525 Other: Voiding Method Indwelling Catheter Indwelling Catheter ABP, PAP, CO, CI - Last Documented Arterial Blood Pressure 137/69 - Exam Physical Exam: Revealed a 69-year-old white male intubated, on mechanical ventilation, settings as noted earlier, patient is on Nimbex propofol and fentanyl. Head: Atraumatic, normocephalic. HEENT:[Neck is supple.] [No neck masses.] [No thyromegaly.] [No JVD.]PERRLA, EOMI, no icterus. Left subclavian triple-lumen catheter is noted. Chest: [Crackles and rhonchi bilaterally especially at the bases. Right more so than left. Cardiac Exam: [Normal S1 and S2, no S3 gallop, no murmur.] Abdomen: [slightly distended, no tenderness, no rebound, no guarding, diminished bowel sounds. Extremities: [No clubbing, trace of bipedal edema, no cyanosis.] Neurological Exam: could not be assessed, patient is on propofol, Nimbex and fentanyl. Lymphatics: No lymphadenopathy. Psychiatric: Could not be addressed or assessed.] - Labs CBC & Chem 7: 04/24/19 05:15 04/24/19 05:15 Labs: Abnormal Lab Results - Last 24 Hours (Table) 04/23/19 04/23/19 04/23/19 Range/Units 12:00 18:24 21:11 RBC (4.30-5.90) m/uL Hgb (13.0-17.5) gm/dL Hct (39.0-53.0) % Lymphocytes # (1.0-4.8) k/uL ABG pCO2 (35-45) mmHg ABG pO2 74 L (83-108) mmHg ABG HCO3 29 H (21-25) mmol/L ABG Total CO2 30 H (19-24) mmol/L ABG O2 Saturation (94-97) % Creatinine (0.66-1.25) mg/dL Glucose (74-99) mg/dL POC Glucose (mg/dL) 143 H 159 H (75-99) mg/dL AST (17-59) U/L ALT (21-72) U/L Total Protein (6.3-8.2) g/dL Albumin (3.5-5.0) g/dL 04/23/19 04/24/19 04/24/19 Range/Units 23:56 05:15 05:15 RBC 4.08 L (4.30-5.90) m/uL Hgb 12.0 L (13.0-17.5) gm/dL Hct 38.3 L (39.0-53.0) % Lymphocytes # 0.8 L (1.0-4.8) k/uL ABG pCO2 (35-45) mmHg ABG pO2 (83-108) mmHg ABG HCO3 (21-25) mmol/L ABG Total CO2 (19-24) mmol/L ABG O2 Saturation (94-97) % Creatinine 0.51 L (0.66-1.25) mg/dL Glucose 192 H (74-99) mg/dL POC Glucose (mg/dL) 145 H (75-99) mg/dL AST 96 H (17-59) U/L ALT 97 H (21-72) U/L Total Protein 5.9 L (6.3-8.2) g/dL Albumin 3.1 L (3.5-5.0) g/dL 04/24/19 04/24/19 04/24/19 Range/Units 06:03 07:14 08:17 RBC (4.30-5.90) m/uL Hgb (13.0-17.5) gm/dL Hct (39.0-53.0) % Lymphocytes # (1.0-4.8) k/uL ABG pCO2 47 H (35-45) mmHg ABG pO2 72 L (83-108) mmHg ABG HCO3 29 H (21-25) mmol/L ABG Total CO2 30 H (19-24) mmol/L ABG O2 Saturation 93.2 L (94-97) % Creatinine (0.66-1.25) mg/dL Glucose (74-99) mg/dL POC Glucose (mg/dL) 183 H 164 H (75-99) mg/dL AST (17-59) U/L ALT (21-72) U/L Total Protein (6.3-8.2) g/dL Albumin (3.5-5.0) g/dL Microbiology - Last 24 Hours (Table) 04/17/19 08:09 Blood Culture - Final Blood No Growth after 144 hours Assessment and Plan Assessment: impression: Acute hypoxic and hypercapnic respiratory failure secondary to bilateral pneumonia possibly aspiration related, and evolving ARDS. Abdominal distention, being addressed by Dr. dao, patient may have a cecal mass eventually Dr. dao is recommending a barium enema. Previous colonoscopies where unsuccessful. In the meantime the patient remains on TPN for nutritional support. Hypertension, blood pressure seems to fluctuate significantly, especially overnight, he required labetalol drip. Presently off labetalol, back on his usual blood pressure medications. History of alcoholism Obstructive sleep apnea syndrome Abdominal pain with evidence of colitis or possible malignancy, colonoscopy was unsuccessful. Recommendation: Continue ventilatory support, nutritional support/TPN, antibiotics, diuretics, propofol and fentanyl, possibly discontinue Nimbex, continue GI and DVT prophylaxis, patient is not anywhere near any weaning trials at this point specially with all the events he had last night requiring to be placed on Nimbex. Surgery continues to follow regarding his abdominal issues, no need for a CT of the abdomen and pelvis at this point. Prognosis remains extremely poor and guarded, I have a strong feeling that the patient. Eventually require tracheostomy and PEG tube placement. Patient remains overall critically ill. And critical care time is 40 minutes Time with Patient: Greater than 30
[2019-04-24] MEDS: SODIUM CHLORIDE 0.9% 1,000 ML IV SCH (12:22)
[2019-04-24 12:26] LABS: Glucose,Whole Blood 169 mg/dL (75-99)
--- NOTE | 2019-04-24 12:40 | P.PN ---
Subjective Progress Note Date: 04/24/19 This is a 69-year-old male patient of Dr. Gallardo with past medical history of hypertension, hyperlipidemia, COPD, gastroesophageal reflux disease, remote history of tobacco use, obstructive sleep apnea not using CPAP. Patient complains of sudden onset of abdominal pain starting on Tuesday. He also complains of bloating in the abdomen for the past couple months as well as weight loss of 5-10 pounds over the past 3 months. He complains of decreased appetite. He states he has had occasional burgundy stools. He denies any black stools, no diarrhea, no vomiting. He denies any urinary symptoms. Patient states he had his last colonoscopy in 2013 which was normal. Patient presents to [facility] emergency center for evaluation. Abdominal x-ray shows no acute findings. CAT scan of the abdomen and pelvis showed marked thickening of the cecum concerning for malignancy. A nonspecific colitis is not excluded but felt to be less likely. Thickening in the gastric rugae which may be secondary to under distention versus a nonspecific gastritis. EKG is a sinus tachycardia with right bundle branch block, left AFB. WBC 16.7, hemoglobin 14.7, creatinine 0.74. Troponin negative. Amylase and lipase, liver function tests all normal. Urinalysis was clear with 1+ protein. Patient was admitted to the [facility] floor, consult with Dr. Givens, IV fluids, pain medications and Zofran. Plan is for colonoscopy tomorrow. 04/17: Overnight, patient developed acute respiratory failure and was transferred to the intensive care unit and patient placed on BiPAP, currently under care of Dr. Caballero. Patient subsequently intubated and placed on mechanical ventilation. Echocardiogram from yesterday reveals EF 55-60% with moderate concentric left ventricle hypertrophy, trace mitral regurgitation, trace tricuspid regurgitation, no pulmonary hypertension. No pericardial effusion. Chest x-ray shows new right basilar and pneumonic consolidation with diminished inspiration background right hilar and left basilar more patchy edema and or infiltrate felt present. Repeat chest x-ray shows new endotracheal tube with placement described with recommendations to pullback. Mild cardiomegaly and low lung volumes with bilateral hilar edema and/or infiltrate and right basilar consolidation all redemonstrated increasing left basilar infiltrate felt present. Abdomen was more distended and NG tube was placed. Immediate surgical consultation was requested by Dr. Caballero. Dr. Givens attempted bedside colonoscopy but patient was not properly prepped. He is scheduled for CAT scan of the abdomen and pelvis this afternoon at 2:30. NG tube is in place with bile color returned. Family members are in the waiting room and have been updated. 04/18: The patient remains in intensive care unit intubated and on mechanical ventilation. Vent settings have been decreased and no plan for sedation holiday today. He was weaned off norepinephrine this morning. Urine output has been 50-75 mL per hour. Noted that the Goldberg tube is pink but urine is alesia most likely a drug reaction. Patient has had several bowel movements this morning. Antibiotics have been switched to Zosyn and vancomycin. TSH 0.224 with normal free T4 at 1.24. Surgical consultation has been changed to Dr. Aranda per family wishes. 04/19: Patient remains in intensive care unit intubated and on mechanical ventilation. Patient has had increased purulent secretions and underwent reintubation by Dr. Caballero. He also perform bronchoscopy at the bedside and suction 20 ML's purulent material specimen was sent to the lab for cytology and culture. He is concern for ARDS. Patient is continued on Zosyn and vancomycin. He has been off vasopressors since yesterday morning. Patient has had a small amount of liquid stool today much decreased from yesterday. Dr. Aranda is on for surgery at this point. Patient is having minimal output from NG tube. Bowel sounds remain hypoactive. Consult has been added for GI regarding concern for ischemic colitis. 04/20: Patient remains intubated and on mechanical ventilation. Repeat chest x- ray shows continued mild to moderate heart failure. Small to moderate effusions with prominent bibasilar atelectasis and/or consolidation persists. Dr. Aranda is planning for bedside colonoscopy today. Patient was ordered for soapsuds enema last night and this morning. Tube feedings on hold. He has been afebrile, heart rate in the 50s and 60s, blood pressure 141/66. Pulse ox 99%. WBC 8.1, hemoglobin 11.2. Creatinine 0.65. Bronchial washing cytology is pending. Bronchial cultures in progress. Patient will need to start tube feedings or TPN depending on results of colonoscopy scheduled for this afternoon. Patient was given 1 dose of IV Lasix this morning and is diuresing well. Family in the waiting room have been updated. 04/21: Patient remains in the bed, FiO2 40%, PEEP of 6, NG tube has been placed and had taken out the OG tube, fecaloid billous contents are observed in the NG tube, bowel sounds are very diminished today, no bowel movements over the past 24 hours, x-rays of the abdomen will be done to evaluate for progressive bowel o bstruction, patient remains to be afebrile, no leukocytosis bronchial washing cultures shows no normal zander vital signs are stable no hypotensive events, patient is slightly hypotensive on IV Solu-Medrol 40 every 8 04/23: Patient remains intubated and on mechanical ventilation. Dr. Dunham does not plan for attempt at weaning today. He is started him on hydralazine for blood pressure control. Patient has been started on TPN. On Tuesday, patient underwent colonoscopy with Dr. Aranda that revealed reticulosis, tortuous colon and recommends once patient is off ventilation to have barium enema to evaluate the ileocecal valve. Keep NG tube post extubation and hold tube feedings for now. No bowel movement today. 04/24: Patient had a rough night became significantly hypertensive, tachypneic a nd tachycardic. Patient was started on labetalol drip once other options were attempted without success and this was weaned off this morning. Patient also was placed on Nimbex and fentanyl drip which are to be weaned off today. Chest x-ray shows worsening interstitial infiltrates bilaterally and possible interstitial edema. Dr. Dunham increase Lasix to 40 mg IV push every 12 hours. Patient has not had a bowel movement. He remains on TPN and NG tube to suction. Urine output is adequate, tea-colored. Discussed yesterday the possibility of needing a trach and PEG with family members. At this time, Dr. Dunham would like to hold off. Objective - Vital Signs Vital signs: Vital Signs Temp 97.6 F 04/24/19 08:00 Pulse 60 04/24/19 11:30 Resp 26 H 04/24/19 11:00 BP 103/58 04/24/19 08:00 Pulse Ox 96 04/24/19 11:00 Intake & Output 04/23/19 04/24/19 04/24/19 18:59 06:59 18:59 Intake Total 3452.026 2124.783 1594.315 Output Total 2310 3955 2024 Balance 1142.026 -730.217 -430.685 Weight 115.6 kg Intake: IV 1882 1388 1026 Mvi, Adult No.4 with Vit 504 537 210 K 10 ml Trace (Conc-1Ml/ Dose) 1 ml In Amino Acid 5%-D15w+Lytes*E* 1,000 ml @ 42 mls/hr IV .Q24H [facility] Rx#:[id number] Piperacillin-Tazobactam 3 100 75 .375 gm In Sodium Chloride 0.9% 100 ml @ 25 mls/hr IVPB Q8H [facility] Rx#: [id number] Potassium Chloride 10 meq 200 In Water For Injection 1 100ml.bag @ 100 mls/hr IVPB Q1H [facility] Rx#: [id number] Sodium Chloride 0.9% 1, 240 240 100 000 ml @ 20 mls/hr IV . Q24H [facility] Rx#:[id number] Vancomycin 2,000 mg In 1002 500 501 Sodium Chloride 0.9% 500 ml 500 ml @ 167 mls/hr IVPB Q8HR [facility] Rx#: [id number] pressure bag 36 36 15 Intake, IV Titration 1570.026 736.783 568.315 Amount Cisatracurium 200 mg In 43.466 96.873 Sodium Chloride 0.9% 180 ml @ 1 MCG/KG/MIN 6.936 mls/hr IV .Q24H [facility] Rx#: [id number] Labetalol 200 mg In 278 201.5 Sodium Chloride 0.9% 160 ml @ 2 MG/MIN 120 mls/hr IV .Q1H40M E[facility] Rx#: [id number] Mvi, Adult No.4 with Vit 1002.4 K 10 ml Trace (Conc-1Ml/ Dose) 1 ml In Amino Acid 5%-D15w+Lytes*E* 1,000 ml @ 42 mls/hr IV .Q24H [facility] Rx#:[id number] Propofol 1,000 mg In 567.626 400 200 Empty Bag 1 bag @ Titrate IV .Q0M [facility] Rx#: [id number] fentaNYL (PF) 1,000 mcg 15.317 69.942 In Sodium Chloride 0.9% 80 ml @ 0.5 MCG/KG/HR 5. 78 mls/hr IV .[id number] [facility] Rx#:[id number] Output: Gastric Drainage 350 350 300 Urine 1960 2505 1725 Other: Voiding Method Indwelling Catheter Indwelling Catheter ABP, PAP, CO, CI - Last Documented Arterial Blood Pressure 137/60 - Exam Review of Systems All systems: Unable to be obtained due to intubation Physical exam: Gen: This is an obese 69-year-old male. Patient is resting in ICU bed and appears to be comfortable. He is intubated and on mechanical ventilation. HEENT: Head is atraumatic, normocephalic. Pupils equal, round. Sclerae is anicteric. OG tube in place. NECK: Supple. No JVD. No lymphadenopathy. No thyromegaly. LUNGS: Scattered rhonchi, crackles and expiratory wheeze. No intercostal retractions. HEART: Regular rate and rhythm. No murmur. ABDOMEN: Distended Bowel sounds are hypoactive. No masses. No tenderness. Goldberg catheter with tea-colored urine. EXTREMITIES: Trace bilateral pedal edema. SCDs in place. NEUROLOGICAL: Patient is on mechanical ventilation. - Labs CBC & Chem 7: 04/24/19 05:15 04/24/19 05:15 Labs: Abnormal Lab Results - Last 24 Hours (Table) 04/23/19 04/23/19 04/23/19 Range/Units 18:24 21:11 23:56 RBC (4.30-5.90) m/uL Hgb (13.0-17.5) gm/dL Hct (39.0-53.0) % Lymphocytes # (1.0-4.8) k/uL ABG pCO2 (35-45) mmHg ABG pO2 74 L (83-108) mmHg ABG HCO3 29 H (21-25) mmol/L ABG Total CO2 30 H (19-24) mmol/L ABG O2 Saturation (94-97) % Creatinine (0.66-1.25) mg/dL Glucose (74-99) mg/dL POC Glucose (mg/dL) 159 H 145 H (75-99) mg/dL AST (17-59) U/L ALT (21-72) U/L Total Protein (6.3-8.2) g/dL Albumin (3.5-5.0) g/dL 04/24/19 04/24/19 04/24/19 Range/Units 05:15 05:15 06:03 RBC 4.08 L (4.30-5.90) m/uL Hgb 12.0 L (13.0-17.5) gm/dL Hct 38.3 L (39.0-53.0) % Lymphocytes # 0.8 L (1.0-4.8) k/uL ABG pCO2 (35-45) mmHg ABG pO2 (83-108) mmHg ABG HCO3 (21-25) mmol/L ABG Total CO2 (19-24) mmol/L ABG O2 Saturation (94-97) % Creatinine 0.51 L (0.66-1.25) mg/dL Glucose 192 H (74-99) mg/dL POC Glucose (mg/dL) 183 H (75-99) mg/dL AST 96 H (17-59) U/L ALT 97 H (21-72) U/L Total Protein 5.9 L (6.3-8.2) g/dL Albumin 3.1 L (3.5-5.0) g/dL 04/24/19 04/24/19 04/24/19 Range/Units 07:14 08:17 12:13 RBC (4.30-5.90) m/uL Hgb (13.0-17.5) gm/dL Hct (39.0-53.0) % Lymphocytes # (1.0-4.8) k/uL ABG pCO2 47 H (35-45) mmHg ABG pO2 72 L (83-108) mmHg ABG HCO3 29 H (21-25) mmol/L ABG Total CO2 30 H (19-24) mmol/L ABG O2 Saturation 93.2 L (94-97) % Creatinine (0.66-1.25) mg/dL Glucose (74-99) mg/dL POC Glucose (mg/dL) 164 H 169 H (75-99) mg/dL AST (17-59) U/L ALT (21-72) U/L Total Protein (6.3-8.2) g/dL Albumin (3.5-5.0) g/dL Microbiology - Last 24 Hours (Table) 04/17/19 08:09 Blood Culture - Final Blood No Growth after 144 hours Assessment and Plan Plan: 1. Abdominal pain, possible colitis, possible malignancy of the cecum. Consult with Dr. Aranda. Continue IV fluids, Zosyn. Barium study plan once patient is extubated. 2. Hypertension. Vasotec IV as needed for systolic blood pressure greater than 160. Hydralazine also added (lisinopril 40 mg daily, hydrochlorothiazide 25 mg daily, verapamil 240 mg daily on hold). Patient was hypotensive requiring norepinephrine which has been weaned off. Subsequently, patient developed malignant hypertension requiring labetalol drip which has been weaned off. 3. Hyperlipidemia. Crestor, niacin and Lopid on hold. 4. Gastroesophageal reflux disease. Continue Protonix. 5. Probable COPD. Continue DuoNeb treatments every 4 hours as needed. 6. Diabetes mellitus type 2, insulin requiring, uncontrolled with hyperglycemia. Metformin on hold. NovoLog scale before meals and at bedtime. NovoLog scale 7. Generalized anxiety disorder. Citalopram 40 mg daily on hold. 8. DVT prophylaxis. Heparin subcu. 9. Acute hypoxic and hypercapnic respiratory failure with bilateral pulmonary infiltrates and masslike consolidation in the right lower lobe most likely sec ondary to massive aspiration pneumonia, acute respiratory distress syndrome. Patient has been intubated and placed on mechanical ventilation management by Dr. Clarke. Patient is status post reintubation or exchange of ET tube. Patient is status post bronchoscopy. 10. Abdominal distention secondary to ileus. Continue NG tube. Consult with Dr. Aranda appreciated. 11. Obstructive sleep apnea noncompliant with CPAP. 12. Blood culture with coag-negative staph, contamination. No history of heart failure Prognosis guarded. Discharge plan: To be determined. Impression and plan of care have been directed as dictated by the signing physician. Destini Navarro nurse practitioner acting as scribe for signing physician.
--- NOTE | 2019-04-24 16:05 | P.PN ---
Subjective Progress Note Date: 04/24/19 Principal diagnosis: Right-sided colonic wall thickening Patient stable this morning. Last night he had agitation with hypertension. Per pulmonary not ready for weaning yet. May require tracheostomy. Objective - Vital Signs Vital signs: Vital Signs Temp 98.1 F 04/24/19 12:00 Pulse 55 L 04/24/19 15:45 Resp 26 H 04/24/19 14:00 BP 103/58 04/24/19 08:00 Pulse Ox 96 04/24/19 14:00 Intake & Output 04/23/19 04/24/19 04/24/19 18:59 06:59 18:59 Intake Total 3452.026 2124.783 1964.315 Output Total 2310 2855 2410 Balance 1142.026 -730.217 -445.685 Weight 115.6 kg Intake: IV 1882 1388 1296 Mvi, Adult No.4 with Vit 504 537 336 K 10 ml Trace (Conc-1Ml/ Dose) 1 ml In Amino Acid 5%-D15w+Lytes*E* 1,000 ml @ 42 mls/hr IV .Q24H ELA Rx#:[id number] Piperacillin-Tazobactam 3 100 75 75 .375 gm In Sodium Chloride 0.9% 100 ml @ 25 mls/hr IVPB Q8H ELA Rx#: [id number] Potassium Chloride 10 meq 200 In Water For Injection 1 100ml.bag @ 100 mls/hr IVPB Q1H ELA Rx#: [id number] Sodium Chloride 0.9% 1, 240 240 160 000 ml @ 20 mls/hr IV . Q24H ELA Rx#:[id number] Vancomycin 2,000 mg In 1002 500 501 Sodium Chloride 0.9% 500 ml 500 ml @ 167 mls/hr IVPB Q8HR [facility] Rx#: [id number] pressure bag 36 36 24 Intake, IV Titration 1570.026 736.783 668.315 Amount Cisatracurium 200 mg In 43.466 96.873 Sodium Chloride 0.9% 180 ml @ 1 MCG/KG/MIN 6.936 mls/hr IV .Q24H ELA Rx#: [id number] Labetalol 200 mg In 278 201.5 Sodium Chloride 0.9% 160 ml @ 2 MG/MIN 120 mls/hr IV .Q1H40M ELA Rx#: [id number] Mvi, Adult No.4 with Vit 1002.4 K 10 ml Trace (Conc-1Ml/ Dose) 1 ml In Amino Acid 5%-D15w+Lytes*E* 1,000 ml @ 42 mls/hr IV .Q24H ELA Rx#:[id number] Propofol 1,000 mg In 567.626 400 300 Empty Bag 1 bag @ Titrate IV .Q0M ELA Rx#: [id number] fentaNYL (PF) 1,000 mcg 15.317 69.942 In Sodium Chloride 0.9% 80 ml @ 0.5 MCG/KG/HR 5. 78 mls/hr IV .U10Y74H E[facility] Rx#:[id number] Output: Gastric Drainage 350 350 300 Urine 1960 2505 2110 Other: Voiding Method Indwelling Catheter Indwelling Catheter ABP, PAP, CO, CI - Last Documented Arterial Blood Pressure 125/53 - Exam Abdomen: Soft, mild distention, nontender - Labs CBC & Chem 7: 04/24/19 05:15 04/24/19 05:15 Labs: Abnormal Lab Results - Last 24 Hours (Table) 04/23/19 04/23/19 04/23/19 Range/Units 18:24 21:11 23:56 RBC (4.30-5.90) m/uL Hgb (13.0-17.5) gm/dL Hct (39.0-53.0) % Lymphocytes # (1.0-4.8) k/uL ABG pCO2 (35-45) mmHg ABG pO2 74 L (83-108) mmHg ABG HCO3 29 H (21-25) mmol/L ABG Total CO2 30 H (19-24) mmol/L ABG O2 Saturation (94-97) % Creatinine (0.66-1.25) mg/dL Glucose (74-99) mg/dL POC Glucose (mg/dL) 159 H 145 H (75-99) mg/dL AST (17-59) U/L ALT (21-72) U/L Total Protein (6.3-8.2) g/dL Albumin (3.5-5.0) g/dL 04/24/19 04/24/19 04/24/19 Range/Units 05:15 05:15 06:03 RBC 4.08 L (4.30-5.90) m/uL Hgb 12.0 L (13.0-17.5) gm/dL Hct 38.3 L (39.0-53.0) % Lymphocytes # 0.8 L (1.0-4.8) k/uL ABG pCO2 (35-45) mmHg ABG pO2 (83-108) mmHg ABG HCO3 (21-25) mmol/L ABG Total CO2 (19-24) mmol/L ABG O2 Saturation (94-97) % Creatinine 0.51 L (0.66-1.25) mg/dL Glucose 192 H (74-99) mg/dL POC Glucose (mg/dL) 183 H (75-99) mg/dL AST 96 H (17-59) U/L ALT 97 H (21-72) U/L Total Protein 5.9 L (6.3-8.2) g/dL Albumin 3.1 L (3.5-5.0) g/dL 04/24/19 04/24/19 04/24/19 Range/Units 07:14 08:17 12:13 RBC (4.30-5.90) m/uL Hgb (13.0-17.5) gm/dL Hct (39.0-53.0) % Lymphocytes # (1.0-4.8) k/uL ABG pCO2 47 H (35-45) mmHg ABG pO2 72 L (83-108) mmHg ABG HCO3 29 H (21-25) mmol/L ABG Total CO2 30 H (19-24) mmol/L ABG O2 Saturation 93.2 L (94-97) % Creatinine (0.66-1.25) mg/dL Glucose (74-99) mg/dL POC Glucose (mg/dL) 164 H 169 H (75-99) mg/dL AST (17-59) U/L ALT (21-72) U/L Total Protein (6.3-8.2) g/dL Albumin (3.5-5.0) g/dL Assessment and Plan (1) Colitis Narrative/Plan: Continue ventilatory support. Keep gastric tube to suction. Continue TPN. Anticipate discussion between laboratory manager and family regarding possible tracheostomy and prolonged ventilatory support. Remain on surgical standby. Current Visit: Yes Status: Acute Code(s): K52.9 - NONINFECTIVE GASTROENTERITIS AND COLITIS, UNSPECIFIED SNOMED Code(s): 03111569
[2019-04-24] MEDS: MVI, ADULT NO.4 WITH VIT K 10 ML, TRACE (CONC-1ML/DOSE) 1 ML in AMINO ACID 5%-D15W+LYTE... IV SCH ×3 (18:16)
[2019-04-24 18:29] LABS: Glucose,Whole Blood 175 mg/dL (75-99)
[2019-04-24] MEDS ORDERED: FUROSEMIDE 10 MG/ML 4 ML VIAL IV SCH (21:00)
[2019-04-24] MEDS: HYDROmorphone 1 MG/ML 1 ML SYRINGE IVP PRN (21:03)
[2019-04-24] MEDS: CISATRACURIUM 200 MG in SODIUM CHLORIDE 0.9% 180 ML IV SCH (21:14)
[2019-04-24 23:56] LABS: Glucose,Whole Blood 166 mg/dL (75-99)
[2019-04-25] MEDS: INSULIN ASPART (NovoLOG) 100 UNIT/ML VIAL SQ SCH ×5 (00:22→23:29)
[2019-04-25] MEDS: PROPOFOL 1,000 MG in EMPTY BAG 1 BAG IV SCH ×14 (00:22→23:18)
[2019-04-25] MEDS: ARTIFICIAL TEARS-HYPROMELLOSE DROPS 15 ML BTL BOTH EYES SCH ×7 (00:23→23:15)
[2019-04-25] MEDS: methylPREDNISolone SOD SUCCI 40 MG/ML 1 ML VIAL IV SCH ×4 (00:24→23:15)
[2019-04-25] MEDS: LABETALOL 200 MG in SODIUM CHLORIDE 0.9% 160 ML IV SCH ×14 (00:27→22:54)
[2019-04-25] MEDS: HYDROmorphone 1 MG/ML 1 ML SYRINGE IVP PRN ×7 (00:34→22:52)
[2019-04-25] MEDS: VANCOMYCIN 2,000 MG in SODIUM CHLORIDE 0.9% 500 ML 500 ML IVPB SCH ×4 (00:34→23:16)
[2019-04-25] MEDS: IPRATROPIUM-ALBUTEROL 3 ML NEB INHALATION SCH ×5 (03:31→19:22)
[2019-04-25] MEDS: PIPERACILLIN-TAZOBACTAM 3.375 GM in SODIUM CHLORIDE 0.9% 100 ML IVPB SCH ×3 (04:09→21:46)
[2019-04-25 05:20] LABS: ALT 138 U/L (21-72); AST 120 U/L (17-59); African American GFR (CKD) >90 (>60 ml/min/1.73 sqM); Albumin 3.1 g/dL (3.5-5.0); Alkaline Phosphatase 72 U/L (38-126); Anion Gap 9 mmol/L; Blood Urea Nitrogen 22 mg/dL (9-20); Calcium 9.2 mg/dL (8.4-10.2); Carbon Dioxide 27 mmol/L (22-30); Chloride 102 mmol/L (98-107); Glucose 185 mg/dL (74-99); Magnesium 2.1 mg/dL (1.6-2.3); Phosphorus 3.9 mg/dL (2.5-4.5); Potassium 4.2 mmol/L (3.5-5.1); Sodium 138 mmol/L (137-145); Total Bilirubin 0.9 mg/dL (0.2-1.3); Total Protein 5.9 g/dL (6.3-8.2)
[2019-04-25 05:51] LABS: Basophils % (A) 1 %; Eosinophils # (A) 0.1 k/uL (0-0.7); Eosinophils % (A) 1 %; HCT 34.8 % (39.0-53.0); Lymphocytes # (A) 0.8 k/uL (1.0-4.8); Lymphocytes % (A) 10 %; MCH 32.2 pg (25.0-35.0); MCHC 34.5 g/dL (31.0-37.0); MCV 93.4 fL (80.0-100.0); Monocytes # (A) 0.3 k/uL (0-1.0); Monocytes % (A) 5 %; Neutrophils # (A) 6.1 k/uL (1.3-7.7); Neutrophils % (A) 82 %; Platelet Count 337 k/uL (150-450); RBC 3.73 m/uL (4.30-5.90); RDW 13.7 % (11.5-15.5); WBC 7.4 k/uL (3.8-10.6)
[2019-04-25 06:24] LABS: Glucose,Whole Blood 167 mg/dL (75-99)
[2019-04-25] MEDS: BUDESONIDE 1 MG/2 ML NEBU INHALATION SCH ×2 (07:26→19:22)
[2019-04-25 07:38] LABS: ABG Base Excess 3.7 mmol/L; ABG HCO3 28 mmol/L (21-25); ABG Oxygen Saturation 94.1 % (94-97); ABG PCO2 43 mmHg (35-45); ABG PH 7.42 (7.35-7.45); ABG PO2 71 mmHg (83-108); ABG TCO2 29 mmol/L (19-24); Allen Test Performed? Yes
--- NOTE | 2019-04-25 07:54 | XR ---
EXAMINATION TYPE: XR chest 1V portable DATE OF EXAM: 04/25/2019 COMPARISON: Prior chest x-ray 04/24/2019 HISTORY: Intubated TECHNIQUE: Single frontal view of the chest is obtained. FINDINGS: Endotracheal tube, gastric tube, left subclavian central venous catheter are stable and ov erlying appropriate positions. Heart size is unchanged. Central vascularity is increased. Bilateral a irspace disease is noted. No pneumothorax. Hemidiaphragms are obscured. IMPRESSION: Correlate for congestive heart failure, pneumonia, ARDS.
[2019-04-25] MEDS: hydrALAZINE HCL 20 MG/ML 1 ML VIAL IVP PRN (09:10)
[2019-04-25] MEDS: ENALAPRILAT 1.25 MG/ML 1 ML VIAL IVP PRN (09:10)
[2019-04-25] MEDS: CLEVIDIPINE BUTYRATE 25 MG in EMPTY BAG 1 BAG IV SCH ×5 (09:46→23:16)
[2019-04-25] MEDS: CHLORHEXIDINE GLUCONATE 15 ML CUP MUCOUS MEM SCH ×2 (09:59→21:25)
[2019-04-25] MEDS: HEPARIN SODIUM,PORCINE 5,000 UNIT/ML 1 ML VIAL SQ SCH ×2 (10:00→21:26)
[2019-04-25] MEDS: PANTOPRAZOLE 40 MG/10 ML VIAL IV SCH (10:00)
[2019-04-25] MEDS: FUROSEMIDE 10 MG/ML 4 ML VIAL IV SCH ×2 (10:00→21:26)
[2019-04-25] MEDS: fentaNYL (PF) 1,000 MCG in SODIUM CHLORIDE 0.9% 80 ML IV SCH (10:38)
--- NOTE | 2019-04-25 11:26 | P.PN ---
Subjective Progress Note Date: 04/25/19 Principal diagnosis: acute hypoxic and hypercapnic respiratory failure with bilateral pneumonia, suggestive of aspiration pneumonia. And ARDS. patient was evaluated today on 04/23/2019, remains on mechanical ventilation, his ventilator settings are tidal volume of 450 assist-control rate of 26 FiO2 40% and PEEP of 5. Remains on propofol drip at 75 mcg/kg/m, remains on TPN.ABG this morning showed a pO2 of 66 pCO2 of 43 pH of 7.43, electrolytes are normal renal profile is normal CBC is normal. Patient is sedated, he continues to have significant airspace disease in both lungs, hence I will not attempt to wean and x-rayed the patient today, he continues to have significant issues related to his abdomen being addressed by surgery on the case, and he continues to have sig nificant airspace disease based on the chest x-ray today. Oxygenation seems to be a bit improving. Patient was reevaluated today on 04/24/2019, he had significant issues last night mostly extreme agitation, elevated blood pressure, significant tachypnea and tachycardia, patient required to be placed on Nimbex to adequately ventilate him, he also required labetalol drip, and he required placement on fentanyl drip which is presently at 0.5 mcg/kg/h. His labetalol drip was discontinued this morning. Blood pressure seems to be better controlled, and the heart rate seems to be better controlled. Plan to discontinue Nimbex if I can. And will continue fentanyl and propofol which is presently at 75 mcg/kg/m. Patient is calm today, his ventilator settings are assist control rate of 26 tidal volume of 450 FiO2 of 40% and PEEP of 5. Peak airway pressure is 37 plateau pressures are 18. ABG this morning showed a pO2 of 72 pCO2 of 47 pH of 7.39 and this is on a 40% FiO2. Electrolytes and renal profile are normal, chest x-ray continues to show worsening interstitial infiltrates bilaterally, possibility of interstitial edema is likely, hence I recommended a trial of higher dose of Lasix 40 mg IV push every 12 hours. His CBC is relatively normal, patient continues to have no bowel movements and he continues to have no bowel sounds. Remains on TPN, and his nasogastric tube is on low intermittent suctioning. Reevaluated today on 04/25/2019, remains in the ICU on mechanical ventilation. Continues to have intermittent episodes of agitation with elevated blood pressure and tachycardia, presently stable on propofol at 55 mcg/kg/m. His vent settings are assist-control 26 tidal volume of 450 FiO2 40% and PEEP of 5. ABG showed a pO2 of 71 pCO2 of 43 pH of 7.42. Chest x-ray continues to show bilateral airspace disease secondary to pneumonia and ARDS. Urine output is good renal profile is normal CBC is relatively unremarkable. Continues to have slightly distended abdomen and no bowel movements. This is being addressed by surgery on the case. Patient remains on TPN in the meantime. My plan today is to give the patient sedation holiday, and possibly check weaning parameters, and at least a trial of weaning if possible. However the patient gets extremely agitated that would be impossible. Objective - Vital Signs Vital signs: Vital Signs Temp 98.8 F 04/25/19 00:00 Pulse 101 H 04/25/19 11:16 Resp 26 H 04/25/19 07:00 BP 108/56 04/25/19 07:00 Pulse Ox 96 04/25/19 07:00 Intake & Output 04/24/19 04/25/19 04/25/19 18:59 06:59 18:59 Intake Total 3791.419 2152.612 263.865 Output Total 2685 2480 60 Balance 1106.419 -327.388 203.865 Weight 112.4 kg Intake: IV 1915 1648 90 Mvi, Adult No.4 with Vit 504 504 42 K 10 ml Trace (Conc-1Ml/ Dose) 1 ml In Amino Acid 5%-D15w+Lytes*E* 1,000 ml @ 42 mls/hr IV .Q24H E[facility] Rx#:[id number] Piperacillin-Tazobactam 3 100 200 25 .375 gm In Sodium Chloride 0.9% 100 ml @ 25 mls/hr IVPB Q8H [facility] Rx#: [id number] Potassium Chloride 10 meq 200 In Water For Injection 1 100ml.bag @ 100 mls/hr IVPB Q1H E[facility] Rx#: [id number] Sodium Chloride 0.9% 1, 240 240 20 000 ml @ 20 mls/hr IV . Q24H [facility] Rx#:[id number] Vancomycin 2,000 mg In 835 668 Sodium Chloride 0.9% 500 ml 500 ml @ 167 mls/hr IVPB Q8HR E[facility] Rx#: [id number] pressure bag 36 36 3 Intake, IV Titration 1876.419 504.612 173.865 Amount Cisatracurium 200 mg In 96.873 Sodium Chloride 0.9% 180 ml @ 1 MCG/KG/MIN 6.936 mls/hr IV .Q24H E[facility] Rx#: [id number] Clevidipine Butyrate 25 6.200 mg In Empty Bag 1 bag @ 1 MG/HR 2 mls/hr IV .Q24H ELA Rx#:[id number] Labetalol 200 mg In 201.5 Sodium Chloride 0.9% 160 ml @ 2 MG/MIN 120 mls/hr IV .Q1H40M ELA Rx#: [id number] Mvi, Adult No.4 with Vit 1011 K 10 ml Trace (Conc-1Ml/ Dose) 1 ml In Amino Acid 5%-D15w+Lytes*E* 1,000 ml @ 42 mls/hr IV .Q24H E[facility] Rx#:[id number] Propofol 1,000 mg In 497.104 504.612 167.665 Empty Bag 1 bag @ Titrate IV .Q0M E[facility] Rx#: [id number] fentaNYL (PF) 1,000 mcg 69.942 In Sodium Chloride 0.9% 80 ml @ 0.5 MCG/KG/HR 5. 78 mls/hr IV .[id number] E[facility] Rx#:[id number] Output: Gastric Drainage 300 450 Urine 2385 2030 60 Other: Voiding Method Indwelling Catheter Indwelling Catheter ABP, PAP, CO, CI - Last Documented Arterial Blood Pressure 100/45 - Exam Physical Exam: Revealed a 69-year-old white male intubated, on mechanical ventilation, on propofol only. Head: Atraumatic, normocephalic. HEENT:[Neck is supple.] [No neck masses.] [No thyromegaly.] [No JVD.]PERRLA, EOMI, no icterus. Left subclavian triple-lumen catheter is noted. Chest: [Crackles and rhonchi bilaterally especially at the bases. Right more so than left. Cardiac Exam: [Normal S1 and S2, no S3 gallop, no murmur.] Abdomen: [slightly distended, no tenderness, no rebound, no guarding, diminished bowel sounds. Extremities: [No clubbing, trace of bipedal edema, no cyanosis.] Neurological Exam: could not be assessed, patient is on propofol, Lymphatics: No lymphadenopathy. Psychiatric: Could not be addressed or assessed.] - Labs CBC & Chem 7: 04/25/19 04:44 04/25/19 04:44 Labs: Abnormal Lab Results - Last 24 Hours (Table) 04/24/19 04/24/19 04/24/19 Range/Units 12:13 18:06 23:45 RBC (4.30-5.90) m/uL Hgb (13.0-17.5) gm/dL Hct (39.0-53.0) % Lymphocytes # (1.0-4.8) k/uL ABG pO2 (83-108) mmHg ABG HCO3 (21-25) mmol/L ABG Total CO2 (19-24) mmol/L BUN (9-20) mg/dL Creatinine (0.66-1.25) mg/dL Glucose (74-99) mg/dL POC Glucose (mg/dL) 169 H 175 H 166 H (75-99) mg/dL AST (17-59) U/L ALT (21-72) U/L Total Protein (6.3-8.2) g/dL Albumin (3.5-5.0) g/dL 04/25/19 04/25/19 04/25/19 Range/Units 04:44 04:44 06:12 RBC 3.73 L (4.30-5.90) m/uL Hgb 12.0 L (13.0-17.5) gm/dL Hct 34.8 L (39.0-53.0) % Lymphocytes # 0.8 L (1.0-4.8) k/uL ABG pO2 (83-108) mmHg ABG HCO3 (21-25) mmol/L ABG Total CO2 (19-24) mmol/L BUN 22 H (9-20) mg/dL Creatinine 0.56 L (0.66-1.25) mg/dL Glucose 185 H (74-99) mg/dL POC Glucose (mg/dL) 167 H (75-99) mg/dL AST 120 H (17-59) U/L ALT 138 H (21-72) U/L Total Protein 5.9 L (6.3-8.2) g/dL Albumin 3.1 L (3.5-5.0) g/dL 04/25/19 Range/Units 07:36 RBC (4.30-5.90) m/uL Hgb (13.0-17.5) gm/dL Hct (39.0-53.0) % Lymphocytes # (1.0-4.8) k/uL ABG pO2 71 L (83-108) mmHg ABG HCO3 28 H (21-25) mmol/L ABG Total CO2 29 H (19-24) mmol/L BUN (9-20) mg/dL Creatinine (0.66-1.25) mg/dL Glucose (74-99) mg/dL POC Glucose (mg/dL) (75-99) mg/dL AST (17-59) U/L ALT (21-72) U/L Total Protein (6.3-8.2) g/dL Albumin (3.5-5.0) g/dL Assessment and Plan Assessment: impression: Acute hypoxic and hypercapnic respiratory failure secondary to bilateral pneumonia possibly aspiration related, and ARDS. Abdominal distention, being followed by surgery. Hypertension, patient will be placed on a clevidipine today. History of alcoholism, required significant sedation to keep him calm Obstructive sleep apnea syndrome Abdominal pain with evidence of colitis or possible malignancy, colonoscopy was unsuccessful. History of GERD remains on Protonix Type 2 diabetes. History of obstructive sleep apnea syndrome Recommendation: Continue ventilatory support, nutritional support/TPN, antibiotics, diuretics, continue GI and DVT prophylaxis, I plan to give the patient a weaning trial today, hopefully he will remain calm off propofol, may even consider a pressure support and CPAP trial. In the meantime we will continue to address all issues noted above accordingly. Discussed his condition with his admitting physician, and discussed the option of potential tracheostomy and PEG tube placement down the line if the patient fails weaning trial over the next couple of days. Prognosis remains guarded, patient remains critically ill. We'll continue to follow. Critical care time is 35 minutes Time with Patient: Greater than 30
[2019-04-25 11:57] LABS: Glucose,Whole Blood 183 mg/dL (75-99)
--- NOTE | 2019-04-25 13:28 | P.PN ---
Subjective Progress Note Date: 04/25/19 Principal diagnosis: Acute respiratory failure, aspiration pneumonia, severe abdominal pain, possible malignancy in the cecum, possible colitis, delirium tremor, urgent hypertension, COPD This is a 69-year-old male patient of Dr. Gallardo with past medical history of hypertension, hyperlipidemia, COPD, gastroesophageal reflux disease, remote history of tobacco use, obstructive sleep apnea not using CPAP. Patient complains of sudden onset of abdominal pain starting on Tuesday. He also complains of bloating in the abdomen for the past couple months as well as weigh t loss of 5-10 pounds over the past 3 months. He complains of decreased appetite. He states he has had occasional burgundy stools. He denies any black stools, no diarrhea, no vomiting. He denies any urinary symptoms. Patient states he had his last colonoscopy in 2013 which was normal. Patient presents to [facility] emergency center for evaluation. Abdominal x-ray shows no acute findings. CAT scan of the abdomen and pelvis showed marked thickening of the cecum concerning for malignancy. A nonspecific colitis is not excluded but felt to be less likely. Thickening in the gastric rugae which may be secondary to under distention versus a nonspecific gastritis. EKG is a sinus tachycardia with right bundle branch block, left AFB. WBC 16.7, hemoglobin 14.7, creatinine 0.74. Troponin negative. Amylase and lipase, liver function tests all normal. Urinalysis was clear with 1+ protein. Patient was admitted to the Med[facility] floor, consult with Dr. Givens, IV fluids, pain medications and Zofran. Plan is for colonoscopy tomorrow. 04/17: Overnight, patient developed acute respiratory failure and was transferred to the intensive care unit and patient placed on BiPAP, currently under care of Dr. Caballero. Patient subsequently intubated and placed on mechanical ve ntilation. Echocardiogram from yesterday reveals EF 55-60% with moderate concentric left ventricle hypertrophy, trace mitral regurgitation, trace tricuspid regurgitation, no pulmonary hypertension. No pericardial effusion. Chest x-ray shows new right basilar and pneumonic consolidation with diminished inspiration background right hilar and left basilar more patchy edema and or infiltrate felt present. Repeat chest x-ray shows new endotracheal tube with placement described with recommendations to pullback. Mild cardiomegaly and low lung volumes with bilateral hilar edema and/or infiltrate and right basilar consolidation all redemonstrated increasing left basilar infiltrate felt present. Abdomen was more distended and NG tube was placed. Immediate surgical consultation was requested by Dr. Caballero. Dr. Givens attempted bedside colonoscopy but patient was not properly prepped. He is scheduled for CAT scan of the abdomen and pelvis this afternoon at 2:30. NG tube is in place with bile color returned. Family members are in the waiting room and have been updated. 04/18: The patient remains in intensive care unit intubated and on mechanical ventilation. Vent settings have been decreased and no plan for sedation holiday today. He was weaned off norepinephrine this morning. Urine output has been 50-75 mL per hour. Noted that the Goldberg tube is pink but urine is alesia most likely a drug reaction. Patient has had several bowel movements this morning. Antibiotics have been switched to Zosyn and vancomycin. TSH 0.224 with normal free T4 at 1.24. Surgical consultation has been changed to Dr. Aranda per family wishes. 04/19: Patient remains in intensive care unit intubated and on mechanical ventilation. Patient has had increased purulent secretions and underwent r eintubation by Dr. Caballero. He also perform bronchoscopy at the bedside and suction 20 ML's purulent material specimen was sent to the lab for cytology and culture. He is concern for ARDS. Patient is continued on Zosyn and vancomycin. He has been off vasopressors since yesterday morning. Patient has had a small amount of liquid stool today much decreased from yesterday. Dr. Aranda is on for surgery at this point. Patient is having minimal output from NG tube. Bowel sounds remain hypoactive. Consult has been added for GI regarding concern for ischemic colitis. 04/20: Patient remains intubated and on mechanical ventilation. Repeat chest x- ray shows continued mild to moderate heart failure. Small to moderate effusions with prominent bibasilar atelectasis and/or consolidation persists. Dr. Aranda is planning for bedside colonoscopy today. Patient was ordered for soapsuds enema last night and this morning. Tube feedings on hold. He has been afebrile, heart rate in the 50s and 60s, blood pressure 141/66. Pulse ox 99%. WBC 8.1, hemoglobin 11.2. Creatinine 0.65. Bronchial washing cytology is pending. Bronchial cultures in progress. Patient will need to start tube feedings or TPN depending on results of colonoscopy scheduled for this afternoon. Patient was given 1 dose of IV Lasix this morning and is diuresing well. Family in the waiting room have been updated. 04/21: Patient remains in the bed, FiO2 40%, PEEP of 6, NG tube has been placed and had taken out the OG tube, fecaloid billous contents are observed in the NG tube, bowel sounds are very diminished today, no bowel movements over the past 24 hours, x-rays of the abdomen will be done to evaluate for progressive bowel obstruction, patient remains to be afebrile, no leukocytosis bronchial washing cultures shows no normal zander vital signs are stable no hypotensive events, patient is slightly hypotensive on IV Solu-Medrol 40 every 8 04/23: Patient remains intubated and on mechanical ventilation. Dr. Dunham does not plan for attempt at weaning today. He is started him on hydralazine for blood pressure control. Patient has been started on TPN. On Tuesday, patient underwent colonoscopy with Dr. Aranda that revealed reticulosis, tortuous colon and recommends once patient is off ventilation to have barium enema to evaluate the ileocecal valve. Keep NG tube post extubation and hold tube feedings for now. No bowel movement today. 04/24: Patient had a rough night became significantly hypertensive, tachypneic and tachycardic. Patient was started on labetalol drip once other options were attempted without success and this was weaned off this morning. Patient also was placed on Nimbex and fentanyl drip which are to be weaned off today. Chest x-ray shows worsening interstitial infiltrates bilaterally and possible interstitial edema. Dr. Dunham increase Lasix to 40 mg IV push every 12 hours. Patient has not had a bowel movement. He remains on TPN and NG tube to suction. Urine output is adequate, tea-colored. Discussed yesterday the possibility of needing a trach and PEG with family members. At this time, Dr. Dunham would like to hold off. 04/25: Patient is still sedated on mechanical ventilation he had failed his weaning parameter today I want to see him when the and the son were in the room door tachycardia with Dr. dao about further plan. Pulmonary and from medicine standpoint patient most likely will need to go to trach no PEG tube can be done for now expected the plan probably for Tuesday and from thereon if more stable can go for his barium enema to come with final diagnosis of the tumor or the finding in the cecum and the large intestine and from thereon further management can be planned. Patient still on multiple drips for pain management let pressure TPN and DT. Objective - Vital Signs Vital signs: Vital Signs Temp 98.8 F 04/25/19 00:00 Pulse 101 H 04/25/19 11:16 Resp 26 H 04/25/19 07:00 BP 108/56 04/25/19 07:00 Pulse Ox 96 04/25/19 07:00 Intake & Output 04/24/19 04/25/19 04/25/19 18:59 06:59 18:59 Intake Total 3791.419 2152.612 367.008 Output Total 2685 2480 60 Balance 1106.419 -327.388 307.008 Weight 112.4 kg Intake: IV 1915 1648 90 Mvi, Adult No.4 with Vit 504 504 42 K 10 ml Trace (Conc-1Ml/ Dose) 1 ml In Amino Acid 5%-D15w+Lytes*E* 1,000 ml @ 42 mls/hr IV .Q24H ELA Rx#:[id number] Piperacillin-Tazobactam 3 100 200 25 .375 gm In Sodium Chloride 0.9% 100 ml @ 25 mls/hr IVPB Q8H ELA Rx#: [id number] Potassium Chloride 10 meq 200 In Water For Injection 1 100ml.bag @ 100 mls/hr IVPB Q1H ELA Rx#: [id number] Sodium Chloride 0.9% 1, 240 240 20 000 ml @ 20 mls/hr IV . Q24H ELA Rx#:[id number] Vancomycin 2,000 mg In 835 668 Sodium Chloride 0.9% 500 ml 500 ml @ 167 mls/hr IVPB Q8HR ELA Rx#: [id number] pressure bag 36 36 3 Intake, IV Titration 1876.419 504.612 277.008 Amount Cisatracurium 200 mg In 96.873 Sodium Chloride 0.9% 180 ml @ 1 MCG/KG/MIN 6.936 mls/hr IV .Q24H ELA Rx#: [id number] Clevidipine Butyrate 25 67.867 mg In Empty Bag 1 bag @ 1 MG/HR 2 mls/hr IV .Q24H ELA Rx#:[id number] Labetalol 200 mg In 201.5 Sodium Chloride 0.9% 160 ml @ 2 MG/MIN 120 mls/hr IV .Q1H40M ELA Rx#: [id number] Mvi, Adult No.4 with Vit 1011 K 10 ml Trace (Conc-1Ml/ Dose) 1 ml In Amino Acid 5%-D15w+Lytes*E* 1,000 ml @ 42 mls/hr IV .Q24H ELA Rx#:[id number] Propofol 1,000 mg In 497.104 504.612 209.141 Empty Bag 1 bag @ Titrate IV .Q0M ELA Rx#: [id number] fentaNYL (PF) 1,000 mcg 69.942 In Sodium Chloride 0.9% 80 ml @ 0.5 MCG/KG/HR 5. 78 mls/hr IV .I87W26M ELA Rx#:[id number] Output: Gastric Drainage 300 450 Urine 2385 2030 60 Other: Voiding Method Indwelling Catheter Indwelling Catheter Indwelling Catheter ABP, PAP, CO, CI - Last Documented Arterial Blood Pressure 100/45 - Constitutional Constitutional Comment(s): CONSTITUTIONAL: Obese sedated on mechanical ventilation with the ET tube on. EYES: No icterus sclerae, no conjunctivitis. EARS, NOSE, MOUTH, THROAT, and FACE: No sore throat, lymphadenopathy, carotid bruits or deformity. RESPIRATORY: Still on mechanical ventilation with the hypoxia. CARDIOVASCULAR: Still with hypertension and tachycardia on and off. GASTROINTESTINAL: Distended abdomen with no major bleed. GENITOURINARY: Decreased urine output still have Goldberg catheter in. INTEGUMENT/BREAST: Negative for any muscular injury. HEMATOLOGIC/LYMPHATIC: Negative for bleed or purpura. MUSCULOSKELTAL: Negative for Myalgia or arthralgia. NEURLOGICAL: Sedated on mechanical ventilation very agitated when sedation is off. BEHAVIORAL/PSYCH: Negative. ENDOCRINE: Negative. General Appearance: Sedated on mechanical ventilation mildly overweight looks comfortable at the time. Neck HEENT: Still have ET tube in with no lymph node enlargement no bruits.. Lungs: Decreased breath some bilateral rhonchi positive mild expiratory wheezes. Chest Wall: Decrease expansion with deep inspiration no tenderness and no deformity was found on exam, no costochondral pain or discomfort. Heart: Regular rate and rhythm, S1, S2, positive S3 positive tachycardia., no murmur, rub or gallop. Back: Symmetric, no curvature, ROM normal, no CVA tenderness. Abdomen: Soft distended positive bowel sound not able to feel any organomegaly no rebound or rigidity. Extremities: Extremities normal, atraumatic, no cyanosis or edema. Pulses: 2+ and symmetric. Skin: Skin color, texture, tugor normal, no rashes or lesions. Neurologic: Very sedated on mechanical ventilation still withdraws extremity to pain stimuli and quite bit agitated at time. - Labs CBC & Chem 7: 04/25/19 04:44 04/25/19 04:44 Labs: Abnormal Lab Results - Last 24 Hours (Table) 04/24/19 04/24/19 04/25/19 Range/Units 18:06 23:45 04:44 RBC (4.30-5.90) m/uL Hgb (13.0-17.5) gm/dL Hct (39.0-53.0) % Lymphocytes # (1.0-4.8) k/uL ABG pO2 (83-108) mmHg ABG HCO3 (21-25) mmol/L ABG Total CO2 (19-24) mmol/L BUN 22 H (9-20) mg/dL Creatinine 0.56 L (0.66-1.25) mg/dL Glucose 185 H (74-99) mg/dL POC Glucose (mg/dL) 175 H 166 H (75-99) mg/dL AST 120 H (17-59) U/L ALT 138 H (21-72) U/L Total Protein 5.9 L (6.3-8.2) g/dL Albumin 3.1 L (3.5-5.0) g/dL 04/25/19 04/25/19 04/25/19 Range/Units 04:44 06:12 07:36 RBC 3.73 L (4.30-5.90) m/uL Hgb 12.0 L (13.0-17.5) gm/dL Hct 34.8 L (39.0-53.0) % Lymphocytes # 0.8 L (1.0-4.8) k/uL ABG pO2 71 L (83-108) mmHg ABG HCO3 28 H (21-25) mmol/L ABG Total CO2 29 H (19-24) mmol/L BUN (9-20) mg/dL Creatinine (0.66-1.25) mg/dL Glucose (74-99) mg/dL POC Glucose (mg/dL) 167 H (75-99) mg/dL AST (17-59) U/L ALT (21-72) U/L Total Protein (6.3-8.2) g/dL Albumin (3.5-5.0) g/dL 04/25/19 Range/Units 11:45 RBC (4.30-5.90) m/uL Hgb (13.0-17.5) gm/dL Hct (39.0-53.0) % Lymphocytes # (1.0-4.8) k/uL ABG pO2 (83-108) mmHg ABG HCO3 (21-25) mmol/L ABG Total CO2 (19-24) mmol/L BUN (9-20) mg/dL Creatinine (0.66-1.25) mg/dL Glucose (74-99) mg/dL POC Glucose (mg/dL) 183 H (75-99) mg/dL AST (17-59) U/L ALT (21-72) U/L Total Protein (6.3-8.2) g/dL Albumin (3.5-5.0) g/dL Assessment and Plan Plan: 1 acute respiratory failure: Remain on mechanical ventilation, continued see pulmonary regular basis and patient most likely require trach and longer term vent management. Continue updraft treatment continue to watch for any fluid ove rload. 2 acute aspiration pneumonia: Remain on mechanical ventilation still on gram- negative coverage with Zosyn and vancomycin for now continue Solu-Medrol and updraft treatment. 3 COPD: With mild exacerbation: Continue Solu-Medrol, continue O2 continue updraft treatment. 4 abdominal pain: With possible obstruction versus colitis versus malignancy in the cecum still seen Dr. dao continue antibiotics barium study plan once patient is extubated or stable to be able to do the test. 5 delirium tremor: Patient had severe problem with agitation require sedation and paralyzed to take care of his agitation from the DVT has improved some at this point. 6 urgent hypertension: Remain on IV Vasotec hydralazine and labetalol. 7 obstructive sleep apnea was on CPAP patient is on mechanical ventilation currently. 8 possible septicemia and sepsis: Patient blood culture was positive for coag-negative staph remain on vancomycin and Zosyn currently. 9 type 2 diabetes: On insulin currently including insulin drip if needed continue to watch blood sugar to keep it below 150. 10 GI prophylaxis/severe GERD on pantoprazole IV. 11 DVT prophylaxis: Patient remain on Lovenox. CODE STATUS: Full code.
[2019-04-25] MEDS: FUROSEMIDE 10 MG/ML 2 ML VIAL IV SCH (13:58)
[2019-04-25] MEDS ORDERED: VANCOMYCIN TROUGH DUE 1 EACH MISC MISCELLANE ONE (15:00)
[2019-04-25] MEDS: MVI, ADULT NO.4 WITH VIT K 10 ML, TRACE (CONC-1ML/DOSE) 1 ML in AMINO ACID 5%-D15W+LYTE... IV SCH ×3 (16:43)
[2019-04-25 18:25] LABS: Glucose,Whole Blood 139 mg/dL (75-99)
--- NOTE | 2019-04-25 19:11 | P.PN ---
Subjective Progress Note Date: 04/25/19 Principal diagnosis: Right-sided colonic wall thickening Patient remains on ventilator. He was able to wean for about an hour earlier today. Became somewhat agitated following that. Objective - Vital Signs Vital signs: Vital Signs Temp 99.6 F 04/25/19 12:00 Pulse 73 04/25/19 15:56 Resp 23 04/25/19 14:00 BP 108/56 04/25/19 07:00 Pulse Ox 96 04/25/19 14:00 Intake & Output 04/25/19 04/25/19 04/26/19 06:59 18:59 06:59 Intake Total 2152.612 3198.281 Output Total 2480 2325 Balance -327.388 873.281 Weight 112.4 kg Intake: IV 1648 1740 Mvi, Adult No.4 with Vit 504 504 K 10 ml Trace (Conc-1Ml/ Dose) 1 ml In Amino Acid 5%-D15w+Lytes*E* 1,000 ml @ 42 mls/hr IV .Q24H ELA Rx#:[id number] Piperacillin-Tazobactam 3 200 125 .375 gm In Sodium Chloride 0.9% 100 ml @ 25 mls/hr IVPB Q8H ELA Rx#: [id number] Sodium Chloride 0.9% 1, 240 240 000 ml @ 20 mls/hr IV . Q24H ELA Rx#:[id number] Vancomycin 2,000 mg In 668 835 Sodium Chloride 0.9% 500 ml 500 ml @ 167 mls/hr IVPB Q8HR ELA Rx#: [id number] pressure bag 0.9 36 36 Intake, IV Titration 468.104 8247.281 Amount Clevidipine Butyrate 25 70.200 mg In Empty Bag 1 bag @ 1 MG/HR 2 mls/hr IV .Q24H ELA Rx#:[id number] Mvi, Adult No.4 with Vit 942.9 K 10 ml Trace (Conc-1Ml/ Dose) 1 ml In Amino Acid 5%-D15w+Lytes*E* 1,000 ml @ 42 mls/hr IV .Q24H ELA Rx#:[id number] Propofol 1,000 mg In 504.612 445.181 Empty Bag 1 bag @ Titrate IV .Q0M ELA Rx#: [id number] Output: Gastric Drainage 450 550 Urine 2030 1775 Other: Voiding Method Indwelling Catheter Indwelling Catheter ABP, PAP, CO, CI - Last Documented Arterial Blood Pressure 124/51 - Exam Abdomen: Soft, mild distention, nontender - Labs CBC & Chem 7: 04/25/19 04:44 04/25/19 04:44 Labs: Abnormal Lab Results - Last 24 Hours (Table) 04/24/19 04/25/19 04/25/19 Range/Units 23:45 04:44 04:44 RBC 3.73 L (4.30-5.90) m/uL Hgb 12.0 L (13.0-17.5) gm/dL Hct 34.8 L (39.0-53.0) % Lymphocytes # 0.8 L (1.0-4.8) k/uL ABG pO2 (83-108) mmHg ABG HCO3 (21-25) mmol/L ABG Total CO2 (19-24) mmol/L BUN 22 H (9-20) mg/dL Creatinine 0.56 L (0.66-1.25) mg/dL Glucose 185 H (74-99) mg/dL POC Glucose (mg/dL) 166 H (75-99) mg/dL AST 120 H (17-59) U/L ALT 138 H (21-72) U/L Total Protein 5.9 L (6.3-8.2) g/dL Albumin 3.1 L (3.5-5.0) g/dL 04/25/19 04/25/19 04/25/19 Range/Units 06:12 07:36 11:45 RBC (4.30-5.90) m/uL Hgb (13.0-17.5) gm/dL Hct (39.0-53.0) % Lymphocytes # (1.0-4.8) k/uL ABG pO2 71 L (83-108) mmHg ABG HCO3 28 H (21-25) mmol/L ABG Total CO2 29 H (19-24) mmol/L BUN (9-20) mg/dL Creatinine (0.66-1.25) mg/dL Glucose (74-99) mg/dL POC Glucose (mg/dL) 167 H 183 H (75-99) mg/dL AST (17-59) U/L ALT (21-72) U/L Total Protein (6.3-8.2) g/dL Albumin (3.5-5.0) g/dL 04/25/19 Range/Units 18:11 RBC (4.30-5.90) m/uL Hgb (13.0-17.5) gm/dL Hct (39.0-53.0) % Lymphocytes # (1.0-4.8) k/uL ABG pO2 (83-108) mmHg ABG HCO3 (21-25) mmol/L ABG Total CO2 (19-24) mmol/L BUN (9-20) mg/dL Creatinine (0.66-1.25) mg/dL Glucose (74-99) mg/dL POC Glucose (mg/dL) 139 H (75-99) mg/dL AST (17-59) U/L ALT (21-72) U/L Total Protein (6.3-8.2) g/dL Albumin (3.5-5.0) g/dL Assessment and Plan (1) Colitis Narrative/Plan: Continue TPN and gastric suction. Continue ventilatory weaning. Current Visit: Yes Status: Acute Code(s): K52.9 - NONINFECTIVE GASTROENTERITIS AND COLITIS, UNSPECIFIED SNOMED Code(s): 90083587
[2019-04-25] MEDS: CISATRACURIUM 200 MG in SODIUM CHLORIDE 0.9% 180 ML IV SCH (21:16)
[2019-04-25] MEDS: MORPHINE SULFATE 4 MG/ML SYRINGE IV PRN (21:22)
[2019-04-25] MEDS: SODIUM CHLORIDE 0.9% 1,000 ML IV SCH (21:27)
[2019-04-25 23:35] LABS: Glucose,Whole Blood 137 mg/dL (75-99)
[2019-04-26] MEDS: IPRATROPIUM-ALBUTEROL 3 ML NEB INHALATION SCH ×7 (00:49→23:18)
[2019-04-26] MEDS: PROPOFOL 1,000 MG in EMPTY BAG 1 BAG IV SCH ×9 (01:20→23:28)
[2019-04-26] MEDS: HYDROmorphone 1 MG/ML 1 ML SYRINGE IVP PRN ×6 (01:50→21:44)
[2019-04-26] MEDS: CLEVIDIPINE BUTYRATE 25 MG in EMPTY BAG 1 BAG IV SCH ×6 (01:53→23:33)
[2019-04-26] MEDS: LABETALOL 200 MG in SODIUM CHLORIDE 0.9% 160 ML IV SCH ×13 (01:55→20:13)
[2019-04-26] MEDS: fentaNYL (PF) 1,000 MCG in SODIUM CHLORIDE 0.9% 80 ML IV SCH ×2 (03:21→21:45)
[2019-04-26] MEDS: PIPERACILLIN-TAZOBACTAM 3.375 GM in SODIUM CHLORIDE 0.9% 100 ML IVPB SCH ×3 (04:11→20:00)
[2019-04-26] MEDS: ARTIFICIAL TEARS-HYPROMELLOSE DROPS 15 ML BTL BOTH EYES SCH ×6 (04:11→23:50)
[2019-04-26 04:45] LABS: Basophils % (A) 1 %; Eosinophils # (A) 0.1 k/uL (0-0.7); Eosinophils % (A) 1 %; HCT 38.4 % (39.0-53.0); HGB 12.6 gm/dL (13.0-17.5); Lymphocytes % (A) 10 %; MCH 30.2 pg (25.0-35.0); MCHC 32.9 g/dL (31.0-37.0); MCV 91.6 fL (80.0-100.0); Mean Platelet Volume 6.8; Monocytes # (A) 0.5 k/uL (0-1.0); Monocytes % (A) 5 %; Neutrophils # (A) 7.7 k/uL (1.3-7.7); Neutrophils % (A) 82 %; Platelet Count 421 k/uL (150-450); RBC 4.19 m/uL (4.30-5.90); RDW 13.9 % (11.5-15.5); WBC 9.4 k/uL (3.8-10.6)
[2019-04-26 04:58] LABS: African American GFR (CKD) >90 (>60 ml/min/1.73 sqM); Anion Gap 7 mmol/L; Blood Urea Nitrogen 22 mg/dL (9-20); Calcium 9.1 mg/dL (8.4-10.2); Carbon Dioxide 28 mmol/L (22-30); Chloride 104 mmol/L (98-107); Glucose 150 mg/dL (74-99); Magnesium 2.1 mg/dL (1.6-2.3); Phosphorus 3.9 mg/dL (2.5-4.5); Potassium 3.5 mmol/L (3.5-5.1); Sodium 139 mmol/L (137-145)
[2019-04-26] MEDS: INSULIN ASPART (NovoLOG) 100 UNIT/ML VIAL SQ SCH ×4 (05:19→23:51)
[2019-04-26 05:26] LABS: Glucose,Whole Blood 135 mg/dL (75-99)
[2019-04-26] MEDS: methylPREDNISolone SOD SUCCI 40 MG/ML 1 ML VIAL IV SCH ×3 (07:01→23:59)
[2019-04-26] MEDS: VANCOMYCIN 2,000 MG in SODIUM CHLORIDE 0.9% 500 ML 500 ML IVPB SCH ×2 (07:03→15:14)
[2019-04-26] MEDS: BUDESONIDE 1 MG/2 ML NEBU INHALATION SCH ×2 (07:08→19:35)
[2019-04-26 07:17] LABS: ABG Base Excess 4.5 mmol/L; ABG HCO3 28 mmol/L (21-25); ABG Oxygen Saturation 96.3 % (94-97); ABG PCO2 39 mmHg (35-45); ABG PH 7.47 (7.35-7.45); ABG PO2 80 mmHg (83-108); ABG TCO2 29 mmol/L (19-24)
[2019-04-26 07:19] LABS: Allen Test Performed? no
[2019-04-26] MEDS: FUROSEMIDE 10 MG/ML 4 ML VIAL IV SCH ×2 (08:41→20:02)
[2019-04-26] MEDS: POTASSIUM CHLORIDE 20 MEQ in WATER FOR INJECTION 1 100ML.BAG IVPB SCH ×4 (08:41→20:01)
[2019-04-26] MEDS: CHLORHEXIDINE GLUCONATE 15 ML CUP MUCOUS MEM SCH ×2 (08:41→20:01)
[2019-04-26] MEDS: HEPARIN SODIUM,PORCINE 5,000 UNIT/ML 1 ML VIAL SQ SCH ×2 (08:41→20:01)
[2019-04-26] MEDS: PANTOPRAZOLE 40 MG/10 ML VIAL IV SCH (08:44)
--- NOTE | 2019-04-26 10:31 | P.PN ---
Subjective Progress Note Date: 04/26/19 Principal diagnosis: acute hypoxic and hypercapnic respiratory failure with bilateral pneumonia, suggestive of aspiration pneumonia. And ARDS. patient was evaluated today on 04/23/2019, remains on mechanical ventilation, his ventilator settings are tidal volume of 450 assist-control rate of 26 FiO2 40% and PEEP of 5. Remains on propofol drip at 75 mcg/kg/m, remains on TPN.ABG this morning showed a pO2 of 66 pCO2 of 43 pH of 7.43, electrolytes are normal renal profile is normal CBC is normal. Patient is sedated, he continues to have significant airspace disease in both lungs, hence I will not attempt to wean and x-rayed the patient today, he continues to have significant issues related to his abdomen being addressed by surgery on the case, and he continues to have sig nificant airspace disease based on the chest x-ray today. Oxygenation seems to be a bit improving. Patient was reevaluated today on 04/24/2019, he had significant issues last night mostly extreme agitation, elevated blood pressure, significant tachypnea and tachycardia, patient required to be placed on Nimbex to adequately ventilate him, he also required labetalol drip, and he required placement on fentanyl drip which is presently at 0.5 mcg/kg/h. His labetalol drip was discontinued this morning. Blood pressure seems to be better controlled, and the heart rate seems to be better controlled. Plan to discontinue Nimbex if I can. And will continue fentanyl and propofol which is presently at 75 mcg/kg/m. Patient is calm today, his ventilator settings are assist control rate of 26 tidal volume of 450 FiO2 of 40% and PEEP of 5. Peak airway pressure is 37 plateau pressures are 18. ABG this morning showed a pO2 of 72 pCO2 of 47 pH of 7.39 and this is on a 40% FiO2. Electrolytes and renal profile are normal, chest x-ray continues to show worsening interstitial infiltrates bilaterally, possibility of interstitial edema is likely, hence I recommended a trial of higher dose of Lasix 40 mg IV push every 12 hours. His CBC is relatively normal, patient continues to have no bowel movements and he continues to have no bowel sounds. Remains on TPN, and his nasogastric tube is on low intermittent suctioning. Reevaluated today on 04/25/2019, remains in the ICU on mechanical ventilation. Continues to have intermittent episodes of agitation with elevated blood pressure and tachycardia, presently stable on propofol at 55 mcg/kg/m. His vent settings are assist-control 26 tidal volume of 450 FiO2 40% and PEEP of 5. ABG showed a pO2 of 71 pCO2 of 43 pH of 7.42. Chest x-ray continues to show bilateral airspace disease secondary to pneumonia and ARDS. Urine output is good renal profile is normal CBC is relatively unremarkable. Continues to have slightly distended abdomen and no bowel movements. This is being addressed by surgery on the case. Patient remains on TPN in the meantime. My plan today is to give the patient sedation holiday, and possibly check weaning parameters, and at least a trial of weaning if possible. However the patient gets extremely agitated that would be impossible. Reevaluated today on 04/26/2019, patient remains on mechanical ventilation, cammie justenes to have intermittent episodes of agitation with tachypnea, tachycardia, and hypertension. Yesterday. Started the patient on clevidipine, he is back on clevidipine again today, at 10 mg per hour. His propofol is weaning down to 10 mcg/kg/m, patient is easily agitated, I plan to at least check mental status on the patient, patient is definitely not ready for weaning trials. But that could be attempted if he remains calm. Patient is not requiring any pressors at this point, his ventilator settings are assist control rate of 26 tidal volume of 450 FiO2 of 40% and PEEP is 5. Chest x-ray continues to show bilateral airspace disease specialist in the right lower lobe, and interstitial infiltrates bilaterally. Not much different from chest x-ray in the last few days. ABG showed a pO2 of 80, pCO2 of 39 pH of 7.47. His electrolytes and renal profile are noted to be relatively normal. Patient remains on TPN, remains on antibiotics, remains on diuretics, he is now on clevidipine for elevated blood pressure, he remains on propofol, remains on methylprednisolone 40 mg IV push every 8, and yesterday I had a long discussion with his family regarding his overall condition, and family is definitely agreeable to proceed with tracheostomy and PEG tube placement. Patient continues to have no bowel movements, and that is being addressed by surgery on the case. Objective - Vital Signs Vital signs: Vital Signs Temp 99.0 F 04/26/19 08:00 Pulse 96 04/26/19 10:00 Resp 26 H 06/20/19 10:00 BP 108/56 04/25/19 07:00 Pulse Ox 97 04/26/19 10:00 Intake & Output 04/25/19 04/26/19 04/26/19 18:59 06:59 18:59 Intake Total 3198.281 2319.382 1007.8 Output Total 2325 4030 1030 Balance 873.281 -1710.618 -22.2 Weight 111.9 kg Intake: IV 1740 1623 785 Mvi, Adult No.4 with Vit 504 504 168 K 10 ml Trace (Conc-1Ml/ Dose) 1 ml In Amino Acid 5%-D15w+Lytes*E* 1,000 ml @ 42 mls/hr IV .Q24H ELA Rx#:[id number] Piperacillin-Tazobactam 3 125 175 25 .375 gm In Sodium Chloride 0.9% 100 ml @ 25 mls/hr IVPB Q8H ELA Rx#: [id number] Sodium Chloride 0.9% 1, 240 240 80 000 ml @ 20 mls/hr IV . Q24H ELA Rx#:[id number] Vancomycin 2,000 mg In 835 668 500 Sodium Chloride 0.9% 500 ml 500 ml @ 167 mls/hr IVPB Q8HR ELA Rx#: [id number] pressure bag 0.9 36 36 12 Intake, IV Titration 1458.281 696.382 222.8 Amount Clevidipine Butyrate 25 70.200 239.267 22.8 mg In Empty Bag 1 bag @ 1 MG/HR 2 mls/hr IV .Q24H ELA Rx#:[id number] Mvi, Adult No.4 with Vit 942.9 K 10 ml Trace (Conc-1Ml/ Dose) 1 ml In Amino Acid 5%-D15w+Lytes*E* 1,000 ml @ 42 mls/hr IV .Q24H ELA Rx#:[id number] Potassium Chloride 20 meq 100 In Water For Injection 1 100ml.bag @ 50 mls/hr IVPB Q2H ELA Rx#: [id number] Propofol 1,000 mg In 445.181 Empty Bag 1 bag @ Titrate IV .Q0M ELA Rx#: [id number] Propofol 1,000 mg In 457.115 100 Empty Bag 1 bag @ Titrate IV .Q0M ON LICENSE OF [facility] Rx#: [id number] Output: Gastric Drainage 550 Urine 1775 4030 1030 Other: Voiding Method Indwelling Catheter Indwelling Catheter ABP, PAP, CO, CI - Last Documented Arterial Blood Pressure 165/80 - Exam Physical Exam: Revealed a 69-year-old white male intubated, arousable, opens eyes, but does not follow instructions remains on 10-25 mcg/kg/m of propofol. Being tapered hopefully we can discontinue propofol. And fully assess mental status Head: Atraumatic, normocephalic. HEENT:[Neck is supple.] [No neck masses.] [No thyromegaly.] [No JVD.]PERRLA, EOMI, no icterus. Left subclavian triple-lumen catheter is noted. Chest: [Minimal fine crackles at the right base, left side is diminished, no rhonchi no wheezes. Cardiac Exam: [Normal S1 and S2, no S3 gallop, no murmur.] Abdomen: [slightly distended, no tenderness, no rebound, no guarding, no bowel sounds. Extremities: [No clubbing, trace of bipedal edema, no cyanosis.] Neurological Exam: could not be assessed, patient is on propofol, opens eyes only but does not follow any instructions. Lymphatics: No lymphadenopathy. Psychiatric: Could not be addressed or assessed.] Skin: No rashes - Labs CBC & Chem 7: 04/26/19 04:01 04/26/19 04:01 Labs: Abnormal Lab Results - Last 24 Hours (Table) 04/25/19 04/25/19 04/25/19 Range/Units 11:45 18:11 23:23 RBC (4.30-5.90) m/uL Hgb (13.0-17.5) gm/dL Hct (39.0-53.0) % ABG pH (7.35-7.45) ABG pO2 (83-108) mmHg ABG HCO3 (21-25) mmol/L ABG Total CO2 (19-24) mmol/L BUN (9-20) mg/dL Creatinine (0.66-1.25) mg/dL Glucose (74-99) mg/dL POC Glucose (mg/dL) 183 H 139 H 137 H (75-99) mg/dL 04/26/19 04/26/19 04/26/19 Range/Units 04:01 04:01 05:13 RBC 4.19 L (4.30-5.90) m/uL Hgb 12.6 L (13.0-17.5) gm/dL Hct 38.4 L (39.0-53.0) % ABG pH (7.35-7.45) ABG pO2 (83-108) mmHg ABG HCO3 (21-25) mmol/L ABG Total CO2 (19-24) mmol/L BUN 22 H (9-20) mg/dL Creatinine 0.62 L (0.66-1.25) mg/dL Glucose 150 H (74-99) mg/dL POC Glucose (mg/dL) 135 H (75-99) mg/dL 04/26/19 Range/Units 07:07 RBC (4.30-5.90) m/uL Hgb (13.0-17.5) gm/dL Hct (39.0-53.0) % ABG pH 7.47 H (7.35-7.45) ABG pO2 80 L (83-108) mmHg ABG HCO3 28 H (21-25) mmol/L ABG Total CO2 29 H (19-24) mmol/L BUN (9-20) mg/dL Creatinine (0.66-1.25) mg/dL Glucose (74-99) mg/dL POC Glucose (mg/dL) (75-99) mg/dL Assessment and Plan Assessment: impression: Acute hypoxic and hypercapnic respiratory failure secondary to bilateral pneumonia possibly aspiration related, and ARDS. Abdominal distention, being followed by surgery. Patient was felt to have colitis. Hypertension, remains on multiple medications for hypertension, and remains on clevidipine. History of alcoholism, required significant sedation to keep him calm Obstructive sleep apnea syndrome Abdominal pain with evidence of colitis or possible malignancy, colonoscopy was unsuccessful. History of GERD remains on Protonix Type 2 diabetes. History of obstructive sleep apnea syndrome Recommendation: I had a long discussion with his family members including his and 2 sons, updated them on his condition yesterday. Made aware that the patient is not ready for weaning and extubation, but we are continuing to try daily assessment, and hopefully today I could get him off propofol. Patient is already showing some early signs of agitation off propofol, however I am down to 10 mcg/kg/m at this point. Patient is requiring higher dose of clevidipine to keep his blood pressure down. Otherwise would be over 180 systolic. We'll continue ventilatory support, we will discuss with surgery possibly arranging for tracheostomy later today or tomorrow. And possibly a PEG tube if possible. Patient's overall condition remains critical. The plan is to continue ventilatory support, and wean if possible. However I have a strong feeling that tracheostomy would be necessary. Continue nutritional support/TPN. Continue antibiotics, steroids, bronchodilators, GI and DVT prophylaxis. Continue daily assessment and daily interruption of sedation. Prognosis remains extremely guarded. Patient remains critically ill, critical care time is 37 minutes. Time with Patient: Greater than 30
--- NOTE | 2019-04-26 11:00 | XR ---
EXAMINATION TYPE: XR chest 1V portable DATE OF EXAM: 04/26/2019 COMPARISON: Prior chest x-ray 04/25/2019 HISTORY: Shortness of breath, intubated TECHNIQUE: Single frontal view of the chest is obtained. FINDINGS: Endotracheal tube, orogastric tube, left subclavian central venous catheter are stable. Laguerre spect there is some improvement in aeration especially in the upper lobes, the interstitium may be im proved. Heart size is likely stable. No evident pneumothorax. Bibasilar density persists. IMPRESSION: Suspect some improvement in volume status, aeration. Additional follow-up recommended.
[2019-04-26 11:59] LABS: Glucose,Whole Blood 145 mg/dL (75-99)
[2019-04-26] MEDS: SODIUM CHLORIDE 0.9% 1,000 ML IV SCH (12:04)
--- NOTE | 2019-04-26 14:34 | P.PN ---
Subjective Progress Note Date: 04/26/19 Principal diagnosis: Right-sided colonic wall thickening Patient stable on ventilator. Still weaning relatively poorly. Per pulmonary and family discussions they are interested in proceeding with tracheostomy placement at this time. Objective - Vital Signs Vital signs: Vital Signs Temp 99.4 F 04/26/19 12:00 Pulse 92 04/26/19 14:00 Resp 29 H 04/26/19 14:00 BP 108/56 04/25/19 07:00 Pulse Ox 95 04/26/19 14:00 Intake & Output 04/25/19 04/26/19 04/26/19 18:59 06:59 18:59 Intake Total 3198.281 2319.382 1640.812 Output Total 2325 4030 2960 Balance 873.281 -1710.618 -1319.188 Weight 111.9 kg 111.9 kg Intake: IV 1740 1623 1203 Mvi, Adult No.4 with Vit 504 504 294 K 10 ml Trace (Conc-1Ml/ Dose) 1 ml In Amino Acid 5%-D15w+Lytes*E* 1,000 ml @ 42 mls/hr IV .Q24H ELA Rx#:[id number] Piperacillin-Tazobactam 3 125 175 225 .375 gm In Sodium Chloride 0.9% 100 ml @ 25 mls/hr IVPB Q8H ELA Rx#: [id number] Sodium Chloride 0.9% 1, 240 240 160 000 ml @ 20 mls/hr IV . Q24H ELA Rx#:[id number] Vancomycin 2,000 mg In 835 668 500 Sodium Chloride 0.9% 500 ml 500 ml @ 167 mls/hr IVPB Q8HR ELA Rx#: [id number] pressure bag 0.9 36 36 24 Intake, IV Titration 1458.281 696.382 437.812 Amount Clevidipine Butyrate 25 70.200 239.267 36.800 mg In Empty Bag 1 bag @ 1 MG/HR 2 mls/hr IV .Q24H ELA Rx#:[id number] Mvi, Adult No.4 with Vit 942.9 K 10 ml Trace (Conc-1Ml/ Dose) 1 ml In Amino Acid 5%-D15w+Lytes*E* 1,000 ml @ 42 mls/hr IV .Q24H ELA Rx#:[id number] Potassium Chloride 20 meq 300 In Water For Injection 1 100ml.bag @ 50 mls/hr IVPB Q2H ELA Rx#: [id number] Propofol 1,000 mg In 445.181 Empty Bag 1 bag @ Titrate IV .Q0M ELA Rx#: [id number] Propofol 1,000 mg In 457.115 101.012 Empty Bag 1 bag @ Titrate IV .Q0M ELA Rx#: [id number] Output: Gastric Drainage 550 300 Urine 1775 4030 2660 Other: Voiding Method Indwelling Catheter Indwelling Catheter Indwelling Catheter ABP, PAP, CO, CI - Last Documented Arterial Blood Pressure 141/61 - Exam Neck is supple without masses Abdomen: Soft, mild distention, nontender - Labs CBC & Chem 7: 04/26/19 04:01 04/26/19 04:01 Labs: Abnormal Lab Results - Last 24 Hours (Table) 04/25/19 04/25/19 04/26/19 Range/Units 18:11 23:23 04:01 RBC (4.30-5.90) m/uL Hgb (13.0-17.5) gm/dL Hct (39.0-53.0) % ABG pH (7.35-7.45) ABG pO2 (83-108) mmHg ABG HCO3 (21-25) mmol/L ABG Total CO2 (19-24) mmol/L BUN 22 H (9-20) mg/dL Creatinine 0.62 L (0.66-1.25) mg/dL Glucose 150 H (74-99) mg/dL POC Glucose (mg/dL) 139 H 137 H (75-99) mg/dL 04/26/19 04/26/19 04/26/19 Range/Units 04:01 05:13 07:07 RBC 4.19 L (4.30-5.90) m/uL Hgb 12.6 L (13.0-17.5) gm/dL Hct 38.4 L (39.0-53.0) % ABG pH 7.47 H (7.35-7.45) ABG pO2 80 L (83-108) mmHg ABG HCO3 28 H (21-25) mmol/L ABG Total CO2 29 H (19-24) mmol/L BUN (9-20) mg/dL Creatinine (0.66-1.25) mg/dL Glucose (74-99) mg/dL POC Glucose (mg/dL) 135 H (75-99) mg/dL 04/26/19 Range/Units 11:47 RBC (4.30-5.90) m/uL Hgb (13.0-17.5) gm/dL Hct (39.0-53.0) % ABG pH (7.35-7.45) ABG pO2 (83-108) mmHg ABG HCO3 (21-25) mmol/L ABG Total CO2 (19-24) mmol/L BUN (9-20) mg/dL Creatinine (0.66-1.25) mg/dL Glucose (74-99) mg/dL POC Glucose (mg/dL) 145 H (75-99) mg/dL Assessment and Plan (1) Colitis Narrative/Plan: Clinical scenario discussed in detail with the family once again. We'll proceed with tracheostomy placement tomorrow. Risks of bleeding, infection, fistula, pneumothorax, reviewed. They understand and wish to proceed. Current Visit: Yes Status: Acute Code(s): K52.9 - NONINFECTIVE GASTROENT ERITIS AND COLITIS, UNSPECIFIED SNOMED Code(s): 52122915
[2019-04-26] MEDS: MVI, ADULT NO.4 WITH VIT K 10 ML, TRACE (CONC-1ML/DOSE) 1 ML in AMINO ACID 5%-D15W+LYTE... IV SCH ×3 (15:13)
[2019-04-26 17:33] LABS: Glucose,Whole Blood 151 mg/dL (75-99)
[2019-04-26] MEDS ORDERED: Potassium Replacement Protocol 1 EACH MISC MISCELLANE PRN (17:58)
--- NOTE | 2019-04-26 18:09 | P.PN ---
Subjective Progress Note Date: 04/26/19 Principal diagnosis: Acute respiratory failure, aspiration pneumonia, severe abdominal pain, possible malignancy in the cecum, possible colitis, delirium tremor, urgent hypertension, COPD This is a 69-year-old male patient of Dr. Gallardo with past medical history of hypertension, hyperlipidemia, COPD, gastroesophageal reflux disease, remote history of tobacco use, obstructive sleep apnea not using CPAP. Patient complains of sudden onset of abdominal pain starting on Tuesday. He also complains of bloating in the abdomen for the past couple months as well as weigh t loss of 5-10 pounds over the past 3 months. He complains of decreased appetite. He states he has had occasional burgundy stools. He denies any black stools, no diarrhea, no vomiting. He denies any urinary symptoms. Patient states he had his last colonoscopy in 2013 which was normal. Patient presents to [facility] emergency center for evaluation. Abdominal x-ray shows no acute findings. CAT scan of the abdomen and pelvis showed marked thickening of the cecum concerning for malignancy. A nonspecific colitis is not excluded but felt to be less likely. Thickening in the gastric rugae which may be secondary to under distention versus a nonspecific gastritis. EKG is a sinus tachycardia with right bundle branch block, left AFB. WBC 16.7, hemoglobin 14.7, creatinine 0.74. Troponin negative. Amylase and lipase, liver function tests all normal. Urinalysis was clear with 1+ protein. Patient was admitted to the Medr floor, consult with Dr. Givens, IV fluids, pain medications and Zofran. Plan is for colonoscopy tomorrow. 04/17: Overnight, patient developed acute respiratory failure and was transferred to the intensive care unit and patient placed on BiPAP, currently under care of Dr. Caballero. Patient subsequently intubated and placed on mechanical ve ntilation. Echocardiogram from yesterday reveals EF 55-60% with moderate concentric left ventricle hypertrophy, trace mitral regurgitation, trace tricuspid regurgitation, no pulmonary hypertension. No pericardial effusion. Chest x-ray shows new right basilar and pneumonic consolidation with diminished inspiration background right hilar and left basilar more patchy edema and or infiltrate felt present. Repeat chest x-ray shows new endotracheal tube with placement described with recommendations to pullback. Mild cardiomegaly and low lung volumes with bilateral hilar edema and/or infiltrate and right basilar consolidation all redemonstrated increasing left basilar infiltrate felt present. Abdomen was more distended and NG tube was placed. Immediate surgical consultation was requested by Dr. Caballero. Dr. Givens attempted bedside colonoscopy but patient was not properly prepped. He is scheduled for CAT scan of the abdomen and pelvis this afternoon at 2:30. NG tube is in place with bile color returned. Family members are in the waiting room and have been updated. 04/18: The patient remains in intensive care unit intubated and on mechanical ventilation. Vent settings have been decreased and no plan for sedation holiday today. He was weaned off norepinephrine this morning. Urine output has been 50-75 mL per hour. Noted that the Goldberg tube is pink but urine is alesia most likely a drug reaction. Patient has had several bowel movements this morning. Antibiotics have been switched to Zosyn and vancomycin. TSH 0.224 with normal free T4 at 1.24. Surgical consultation has been changed to Dr. Aranda per family wishes. 04/19: Patient remains in intensive care unit intubated and on mechanical ventilation. Patient has had increased purulent secretions and underwent r eintubation by Dr. Caballero. He also perform bronchoscopy at the bedside and suction 20 ML's purulent material specimen was sent to the lab for cytology and culture. He is concern for ARDS. Patient is continued on Zosyn and vancomycin. He has been off vasopressors since yesterday morning. Patient has had a small amount of liquid stool today much decreased from yesterday. Dr. Aranda is on for surgery at this point. Patient is having minimal output from NG tube. Bowel sounds remain hypoactive. Consult has been added for GI regarding concern for ischemic colitis. 04/20: Patient remains intubated and on mechanical ventilation. Repeat chest x- ray shows continued mild to moderate heart failure. Small to moderate effusions with prominent bibasilar atelectasis and/or consolidation persists. Dr. Aranda is planning for bedside colonoscopy today. Patient was ordered for soapsuds enema last night and this morning. Tube feedings on hold. He has been afebrile, heart rate in the 50s and 60s, blood pressure 141/66. Pulse ox 99%. WBC 8.1, hemoglobin 11.2. Creatinine 0.65. Bronchial washing cytology is pending. Bronchial cultures in progress. Patient will need to start tube feedings or TPN depending on results of colonoscopy scheduled for this afternoon. Patient was given 1 dose of IV Lasix this morning and is diuresing well. Family in the waiting room have been updated. 04/21: Patient remains in the bed, FiO2 40%, PEEP of 6, NG tube has been placed and had taken out the OG tube, fecaloid billous contents are observed in the NG tube, bowel sounds are very diminished today, no bowel movements over the past 24 hours, x-rays of the abdomen will be done to evaluate for progressive bowel obstruction, patient remains to be afebrile, no leukocytosis bronchial washing cultures shows no normal zander vital signs are stable no hypotensive events, patient is slightly hypotensive on IV Solu-Medrol 40 every 8 04/23: Patient remains intubated and on mechanical ventilation. Dr. Dunham does not plan for attempt at weaning today. He is started him on hydralazine for blood pressure control. Patient has been started on TPN. On Tuesday, patient underwent colonoscopy with Dr. Aranda that revealed reticulosis, tortuous colon and recommends once patient is off ventilation to have barium enema to evaluate the ileocecal valve. Keep NG tube post extubation and hold tube feedings for now. No bowel movement today. 04/24: Patient had a rough night became significantly hypertensive, tachypneic and tachycardic. Patient was started on labetalol drip once other options were attempted without success and this was weaned off this morning. Patient also was placed on Nimbex and fentanyl drip which are to be weaned off today. Chest x-ray shows worsening interstitial infiltrates bilaterally and possible interstitial edema. Dr. Dunham increase Lasix to 40 mg IV push every 12 hours. Patient has not had a bowel movement. He remains on TPN and NG tube to suction. Urine output is adequate, tea-colored. Discussed yesterday the possibility of needing a trach and PEG with family members. At this time, Dr. Dunham would like to hold off. 04/25: Patient is still sedated on mechanical ventilation he had failed his weaning parameter today I want to see him when the and the son were in the room door tachycardia with Dr. dao about further plan. Pulmonary and from medicine standpoint patient most likely will need to go to trach no PEG tube can be done for now expected the plan probably for Tuesday and from thereon if more stable can go for his barium enema to come with final diagnosis of the tumor or the finding in the cecum and the large intestine and from thereon further management can be planned. Patient still on multiple drips for pain management let pressure TPN and DT. 04/26: A Chin still on mechanical ventilation, sedated, he is slightly bit awaking when backing off on sedation is still very agitated between having quite bed elevated blood pressure and pulse rate did not succeed on weaning parameter and most likely he will need tracheostomy by tomorrow. PEG tube is negative be possible at this point because of the possibility of mass in the cecum with obstruction cankerous problem if he is more stable can go for barium enema and then PEG tube if there is no cecal mass likely his CEA came back negative. Objective - Vital Signs Vital signs: Vital Signs Temp 99.0 F 04/26/19 08:00 Pulse 94 04/26/19 11:38 Resp 26 H 04/26/19 11:00 BP 108/56 04/25/19 07:00 Pulse Ox 96 04/26/19 11:00 Intake & Output 04/25/19 04/26/19 04/26/19 18:59 06:59 18:59 Intake Total 3198.281 2319.382 1310.812 Output Total 2325 4030 2210 Balance 873.281 -1710.618 -899.188 Weight 111.9 kg 111.9 kg Intake: IV 1740 1623 873 Mvi, Adult No.4 with Vit 504 504 210 K 10 ml Trace (Conc-1Ml/ Dose) 1 ml In Amino Acid 5%-D15w+Lytes*E* 1,000 ml @ 42 mls/hr IV .Q24H ELA Rx#:[id number] Piperacillin-Tazobactam 3 125 175 25 .375 gm In Sodium Chloride 0.9% 100 ml @ 25 mls/hr IVPB Q8H ELA Rx#: [id number] Sodium Chloride 0.9% 1, 240 240 120 000 ml @ 20 mls/hr IV . Q24H ELA Rx#:[id number] Vancomycin 2,000 mg In 835 668 500 Sodium Chloride 0.9% 500 ml 500 ml @ 167 mls/hr IVPB Q8HR ELA Rx#: [id number] pressure bag 0.9 36 36 18 Intake, IV Titration 1458.281 696.382 437.812 Amount Clevidipine Butyrate 25 70.200 239.267 36.800 mg In Empty Bag 1 bag @ 1 MG/HR 2 mls/hr IV .Q24H ELA Rx#:[id number] Mvi, Adult No.4 with Vit 942.9 K 10 ml Trace (Conc-1Ml/ Dose) 1 ml In Amino Acid 5%-D15w+Lytes*E* 1,000 ml @ 42 mls/hr IV .Q24H ELA Rx#:[id number] Potassium Chloride 20 meq 300 In Water For Injection 1 100ml.bag @ 50 mls/hr IVPB Q2H EAL Rx#: [id number] Propofol 1,000 mg In 445.181 Empty Bag 1 bag @ Titrate IV .Q0M ELA Rx#: [id number] Propofol 1,000 mg In 457.115 101.012 Empty Bag 1 bag @ Titrate IV .Q0M ELA Rx#: [id number] Output: Gastric Drainage 550 Urine 1775 4030 2210 Other: Voiding Method Indwelling Catheter Indwelling Catheter Indwelling Catheter ABP, PAP, CO, CI - Last Documented Arterial Blood Pressure 137/65 - Constitutional Constitutional Comment(s): CONSTITUTIONAL: Obese sedated on mechanical ventilation with the ET tube on. EYES: No icterus sclerae, no conjunctivitis. EARS, NOSE, MOUTH, THROAT, and FACE: No sore throat, lymphadenopathy, carotid bruits or deformity. RESPIRATORY: Still on mechanical ventilation with the hypoxia. CARDIOVASCULAR: Still with hypertension and tachycardia on and off. GASTROINTESTINAL: Distended abdomen with no major bleed. GENITOURINARY: Decreased urine output still have Goldberg catheter in. INTEGUMENT/BREAST: Negative for any muscular injury. HEMATOLOGIC/LYMPHATIC: Negative for bleed or purpura. MUSCULOSKELTAL: Negative for Myalgia or arthralgia. NEURLOGICAL: Sedated on mechanical ventilation very agitated when sedation is off. BEHAVIORAL/PSYCH: Negative. ENDOCRINE: Negative. General Appearance: Sedated on mechanical ventilation mildly overweight looks comfortable at the time. Neck HEENT: Still have ET tube in with no lymph node enlargement no bruits.. Lungs: Decreased breath some bilateral rhonchi positive mild expiratory wheezes. Chest Wall: Decrease expansion with deep inspiration no tenderness and no deformity was found on exam, no costochondral pain or discomfort. Heart: Regular rate and rhythm, S1, S2, positive S3 positive tachycardia., no murmur, rub or gallop. Back: Symmetric, no curvature, ROM normal, no CVA tenderness. Abdomen: Soft distended positive bowel sound not able to feel any organomegaly no rebound or rigidity. Extremities: Extremities normal, atraumatic, no cyanosis or edema. Pulses: 2+ and symmetric. Skin: Skin color, texture, tugor normal, no rashes or lesions. Neurologic: Very sedated on mechanical ventilation still withdraws extremity to pain stimuli and quite bit agitated at time. - Labs CBC & Chem 7: 04/26/19 04:01 04/26/19 17:20 Labs: Abnormal Lab Results - Last 24 Hours (Table) 04/25/19 04/25/19 04/26/19 Range/Units 18:11 23:23 04:01 RBC (4.30-5.90) m/uL Hgb (13.0-17.5) gm/dL Hct (39.0-53.0) % ABG pH (7.35-7.45) ABG pO2 (83-108) mmHg ABG HCO3 (21-25) mmol/L ABG Total CO2 (19-24) mmol/L BUN 22 H (9-20) mg/dL Creatinine 0.62 L (0.66-1.25) mg/dL Glucose 150 H (74-99) mg/dL POC Glucose (mg/dL) 139 H 137 H (75-99) mg/dL 04/26/19 04/26/19 04/26/19 Range/Units 04:01 05:13 07:07 RBC 4.19 L (4.30-5.90) m/uL Hgb 12.6 L (13.0-17.5) gm/dL Hct 38.4 L (39.0-53.0) % ABG pH 7.47 H (7.35-7.45) ABG pO2 80 L (83-108) mmHg ABG HCO3 28 H (21-25) mmol/L ABG Total CO2 29 H (19-24) mmol/L BUN (9-20) mg/dL Creatinine (0.66-1.25) mg/dL Glucose (74-99) mg/dL POC Glucose (mg/dL) 135 H (75-99) mg/dL 04/26/19 Range/Units 11:47 RBC (4.30-5.90) m/uL Hgb (13.0-17.5) gm/dL Hct (39.0-53.0) % ABG pH (7.35-7.45) ABG pO2 (83-108) mmHg ABG HCO3 (21-25) mmol/L ABG Total CO2 (19-24) mmol/L BUN (9-20) mg/dL Creatinine (0.66-1.25) mg/dL Glucose (74-99) mg/dL POC Glucose (mg/dL) 145 H (75-99) mg/dL Assessment and Plan Plan: 1 acute respiratory failure: Remain on mechanical ventilation, continued see pulmonary regular basis and patient most likely require trach and longer term vent management. Continue updraft treatment continue to watch for any fluid overload. Weaning parameters done and not successful patient most likely will need tracheostomy. 2 acute aspiration pneumonia: Remain on mechanical ventilation still on gram- negative coverage with Zosyn and vancomycin for now continue Solu-Medrol and u pdraft treatment. 3 COPD: With mild exacerbation: Continue Solu-Medrol, continue O2 continue updraft treatment. 4 abdominal pain: With possible obstruction versus colitis versus malignancy in the cecum still seen Dr. dao continue antibiotics barium study plan once patient is extubated or stable to be able to do the test. CEA was very low which still not extremity confirmative for no cancer. 5 delirium tremor: Patient had severe problem with agitation require sedation and paralyzed to take care of his agitation from the DVT has improved some at this point. 6 urgent hypertension: Remain on IV Vasotec hydralazine and labetalol. 7 obstructive sleep apnea was on CPAP patient is on mechanical ventilation currently. 8 possible septicemia and sepsis: Patient blood culture was positive for coag- negative staph remain on vancomycin and Zosyn currently. 9 type 2 diabetes: On insulin currently including insulin drip if needed continue to watch blood sugar to keep it below 150. 10 GI prophylaxis/severe GERD on pantoprazole IV. 11 DVT prophylaxis: Patient remain on Lovenox. CODE STATUS: Full code.
[2019-04-26] MEDS: CISATRACURIUM 200 MG in SODIUM CHLORIDE 0.9% 180 ML IV SCH (19:58)
[2019-04-26 23:55] LABS: Glucose,Whole Blood 127 mg/dL (75-99)
[2019-04-27] MEDS: LABETALOL 200 MG in SODIUM CHLORIDE 0.9% 160 ML IV SCH ×5 (00:01→09:31)
[2019-04-27] MEDS: MORPHINE SULFATE 4 MG/ML SYRINGE IV PRN (00:19)
[2019-04-27] MEDS: VANCOMYCIN 2,000 MG in SODIUM CHLORIDE 0.9% 500 ML 500 ML IVPB SCH (00:22)
[2019-04-27] MEDS: PROPOFOL 1,000 MG in EMPTY BAG 1 BAG IV SCH ×10 (01:33→22:13)
[2019-04-27] MEDS: HYDROmorphone 1 MG/ML 1 ML SYRINGE IVP PRN ×3 (01:56→21:26)
[2019-04-27] MEDS: IPRATROPIUM-ALBUTEROL 3 ML NEB INHALATION SCH ×6 (02:53→23:27)
[2019-04-27] MEDS: PIPERACILLIN-TAZOBACTAM 3.375 GM in SODIUM CHLORIDE 0.9% 100 ML IVPB SCH ×3 (03:36→20:41)
[2019-04-27] MEDS: ARTIFICIAL TEARS-HYPROMELLOSE DROPS 15 ML BTL BOTH EYES SCH ×6 (03:39→23:48)
[2019-04-27] MEDS: CLEVIDIPINE BUTYRATE 25 MG in EMPTY BAG 1 BAG IV SCH ×3 (04:19→13:05)
[2019-04-27] MEDS: INSULIN ASPART (NovoLOG) 100 UNIT/ML VIAL SQ SCH ×4 (05:30→23:48)
[2019-04-27 05:34] LABS: Basophils # (A) 0.1 k/uL (0-0.2); Basophils % (A) 1 %; Eosinophils # (A) 0.1 k/uL (0-0.7); Eosinophils % (A) 1 %; HGB 12.9 gm/dL (13.0-17.5); Lymphocytes # (A) 1.1 k/uL (1.0-4.8); Lymphocytes % (A) 11 %; MCH 30.4 pg (25.0-35.0); MCHC 33.1 g/dL (31.0-37.0); MCV 91.7 fL (80.0-100.0); Mean Platelet Volume 6.7; Monocytes # (A) 0.5 k/uL (0-1.0); Monocytes % (A) 5 %; Neutrophils # (A) 8.1 k/uL (1.3-7.7); Neutrophils % (A) 81 %; Platelet Count 452 k/uL (150-450); RBC 4.25 m/uL (4.30-5.90); RDW 13.3 % (11.5-15.5); WBC 9.9 k/uL (3.8-10.6)
[2019-04-27 05:42] LABS: African American GFR (CKD) >90 (>60 ml/min/1.73 sqM); Anion Gap 10 mmol/L; Blood Urea Nitrogen 24 mg/dL (9-20); Calcium 9.5 mg/dL (8.4-10.2); Carbon Dioxide 26 mmol/L (22-30); Chloride 104 mmol/L (98-107); Glucose 185 mg/dL (74-99); Magnesium 2.2 mg/dL (1.6-2.3); Potassium 3.6 mmol/L (3.5-5.1); Sodium 140 mmol/L (137-145)
--- NOTE | 2019-04-27 05:49 | XR ---
EXAM: XR Chest, 1 View CLINICAL HISTORY: ITS.REASON XR Reason: mech vent TECHNIQUE: Frontal view of the chest. COMPARISON: 04/26/2019 FINDINGS: Lungs: Bibasilar opacities are similar to the previous exam. Prominent interstitial and pulmonary vascular changes noted. Pleural space: Unremarkable. No pneumothorax. Heart: Cardiac silhouette is stable in size and thought to be within normal limits. Mediastinum: Unremarkable. Bones/joints: Unremarkable. Tubes, lines and devices: A left subclavian approach central line is noted extending in the superior vena cava. The endotracheal tube is identified approximately 2.1 cm from the mary. This is presumed somewhat underrepresented by kyphotic positioning. A nasogastric tube traverses the mediastinum and extends into the superior abdomen. IMPRESSION: No significant alteration with findings suggesting pulmonary edema and stable appearing bibasilar changes. Differential consideration includes atelectasis, asymmetric edema or consolidation.
[2019-04-27 05:53] LABS: Glucose,Whole Blood 169 mg/dL (75-99)
[2019-04-27] MEDS ORDERED: VANCOMYCIN TROUGH DUE 1 EACH MISC MISCELLANE ONE (07:00)
[2019-04-27 07:11] LABS: ABG Base Excess 2.8 mmol/L; ABG HCO3 27 mmol/L (21-25); ABG Oxygen Saturation 96.6 % (94-97); ABG PCO2 37 mmHg (35-45); ABG PH 7.46 (7.35-7.45); ABG PO2 83 mmHg (83-108); ABG TCO2 28 mmol/L (19-24)
[2019-04-27 07:13] LABS: Allen Test Performed? no
[2019-04-27 07:41] LABS: Prothrombin Time 11.1 sec (9.0-12.0)
[2019-04-27] MEDS: BUDESONIDE 1 MG/2 ML NEBU INHALATION SCH ×2 (08:59→19:22)
[2019-04-27] MEDS: HEPARIN SODIUM,PORCINE 5,000 UNIT/ML 1 ML VIAL SQ SCH ×2 (09:30→22:15)
[2019-04-27] MEDS: methylPREDNISolone SOD SUCCI 40 MG/ML 1 ML VIAL IV SCH ×3 (09:30→23:50)
[2019-04-27] MEDS: CHLORHEXIDINE GLUCONATE 15 ML CUP MUCOUS MEM SCH ×2 (09:30→20:37)
[2019-04-27] MEDS: FUROSEMIDE 10 MG/ML 4 ML VIAL IV SCH ×2 (09:30→20:33)
[2019-04-27] MEDS: PANTOPRAZOLE 40 MG/10 ML VIAL IV SCH (09:31)
[2019-04-27] MEDS: fentaNYL (PF) 1,000 MCG in SODIUM CHLORIDE 0.9% 80 ML IV SCH (09:32)
[2019-04-27] MEDS: VANCOMYCIN 1,750 MG in SODIUM CHLORIDE 0.9% 500 ML 500 ML IVPB SCH ×2 (09:43→17:10)
--- NOTE | 2019-04-27 10:00 | XR ---
EXAMINATION TYPE: XR abdomen 1V DATE OF EXAM: 04/27/2019 COMPARISON: NONE HISTORY: Pain TECHNIQUE: One view abdominal series FINDINGS: NG tube noted and there is bilateral consolidation small effusion. Hypertrophic and degenerative valenzuela ges spine. Bowel gas nonspecific with air seen throughout both large and and small bowel loops to level the rect um. Arthropathy of the hips. IMPRESSION: 1. Nonspecific abdomen. No dilated bowel loops are seen in today's exam. Air is seen to the rectum. 2. Bilateral infiltrate and pleural effusion.
--- NOTE | 2019-04-27 11:31 | P.PN ---
Subjective Progress Note Date: 04/27/19 Acute respiratory failure, aspiration pneumonia, severe abdominal pain, possible malignancy in the cecum, possible colitis, delirium tremor, urgent hypertension, COPD This is a 69-year-old male patient of Dr. Gallardo with past medical history of hypertension, hyperlipidemia, COPD, gastroesophageal reflux disease, remote history of tobacco use, obstructive sleep apnea not using CPAP. Patient complains of sudden onset of abdominal pain starting on Tuesday. He also complains of bloating in the abdomen for the past couple months as well as weight loss of 5-10 pounds over the past 3 months. He complains of decreased appetite. He states he has had occasional burgundy stools. He denies any black stools, no diarrhea, no vomiting. He denies any urinary symptoms. Patient states he had his last colonoscopy in 2013 which was normal. Patient presents to [facility] emergency center for evaluation. Abdominal x-ray shows no acute findings. CAT scan of the abdomen and pelvis showed marked thickening of the cecum concerning for malignancy. A nonspecific colitis is not excluded but felt to be less likely. Thickening in the gastric rugae which may be secondary to under distention versus a nonspecific gastritis. EKG is a sinus tachycardia with right bundle branch block, left AFB. WBC 16.7, hemoglobin 14.7, creatinine 0.74. Troponin negative. Amylase and lipase, liver function tests all normal. Urinalysis was clear with 1+ protein. Patient was admitted to the [facility] floor, consult with Dr. Givens, IV fluids, pain medications and Zofran. Plan is for colonoscopy tomorrow. 04/17: Overnight, patient developed acute respiratory failure and was transferred to the intensive care unit and patient placed on BiPAP, currently under care of Dr. Caballero. Patient subsequently intubated and placed on mechanical ventilation. Echocardiogram from yesterday reveals EF 55-60% with moderate concentric left ventricle hypertrophy, trace mitral regurgitation, trace tricuspid regurgitation, no pulmonary hypertension. No pericardial effusion. Chest x-ray shows new right basilar and pneumonic consolidation with diminished inspiration background right hilar and left basilar more patchy edema and or infiltrate felt present. Repeat chest x-ray shows new endotracheal tube with placement described with recommendations to pullback. Mild cardiomegaly and low lung volumes with bilateral hilar edema and/or infiltrate and right basilar consolidation all redemonstrated increasing left basilar infiltrate felt present. Abdomen was more distended and NG tube was placed. Immediate surgical consultation was requested by Dr. Caballero. Dr. Givens attempted bedside colonoscopy but patient was not properly prepped. He is scheduled for CAT scan of the abdomen and pelvis this afternoon at 2:30. NG tube is in place with bile color returned. Family members are in the waiting room and have been updated. 04/18: The patient remains in intensive care unit intubated and on mechanical ventilation. Vent settings have been decreased and no plan for sedation holiday today. He was weaned off norepinephrine this morning. Urine output has been 50-75 mL per hour. Noted that the Goldberg tube is pink but urine is alesia most likely a drug reaction. Patient has had several bowel movements this morning. Antibiotics have been switched to Zosyn and vancomycin. TSH 0.224 with normal free T4 at 1.24. Surgical consultation has been changed to Dr. Garvey per family wishes. 04/19: Patient remains in intensive care unit intubated and on mechanical ventilation. Patient has had increased purulent secretions and underwent reintubation by Dr. Caballero. He also perform bronchoscopy at the bedside and suction 20 ML's purulent material specimen was sent to the lab for cytology and culture. He is concern for ARDS. Patient is continued on Zosyn and vancomycin. He has been off vasopressors since yesterday morning. Patient has had a small amount of liquid stool today much decreased from yesterday. Dr. Garvey is on for surgery at this point. Patient is having minimal output from NG tube. Bowel sounds remain hypoactive. Consult has been added for GI regarding concern for ischemic colitis. 04/20: Patient remains intubated and on mechanical ventilation. Repeat chest x- ray shows continued mild to moderate heart failure. Small to moderate effusions with prominent bibasilar atelectasis and/or consolidation persists. Dr. Garvey is planning for bedside colonoscopy today. Patient was ordered for soapsuds enema last night and this morning. Tube feedings on hold. He has been afebrile, heart rate in the 50s and 60s, blood pressure 141/66. Pulse ox 99%. WBC 8.1, hemoglobin 11.2. Creatinine 0.65. Bronchial washing cytology is pending. Bronchial cultures in progress. Patient will need to start tube feedings or TPN depending on results of colonoscopy scheduled for this afternoon. Patient was given 1 dose of IV Lasix this morning and is diuresing well. Family in the waiting room have been updated. 04/21: Patient remains in the bed, FiO2 40%, PEEP of 6, NG tube has been placed and had taken out the OG tube, fecaloid billous contents are observed in the NG tube, bowel sounds are very diminished today, no bowel movements over the past 24 hours, x-rays of the abdomen will be done to evaluate for progressive bowel obstruction, patient remains to be afebrile, no leukocytosis bronchial washing cultures shows no normal zander vital signs are stable no hypotensive events, patient is slightly hypotensive on IV Solu-Medrol 40 every 8 04/23: Patient remains intubated and on mechanical ventilation. Dr. Dunham does not plan for attempt at weaning today. He is started him on hydralazine for blood pressure control. Patient has been started on TPN. On Tuesday, patient underwent colonoscopy with Dr. Garvey that revealed reticulosis, tortuous colon a nd recommends once patient is off ventilation to have barium enema to evaluate the ileocecal valve. Keep NG tube post extubation and hold tube feedings for now. No bowel movement today. 04/24: Patient had a rough night became significantly hypertensive, tachypneic and tachycardic. Patient was started on labetalol drip once other options were attempted without success and this was weaned off this morning. Patient also was placed on Nimbex and fentanyl drip which are to be weaned off today. Chest x-ray shows worsening interstitial infiltrates bilaterally and possible interstitial edema. Dr. Dunham increase Lasix to 40 mg IV push every 12 hours. Patient has not had a bowel movement. He remains on TPN and NG tube to suction. Urine output is adequate, tea-colored. Discussed yesterday the possibility of needing a trach and PEG with family members. At this time, Dr. Dunham would like to hold off. 04/25: Patient is still sedated on mechanical ventilation he had failed his weaning parameter today I want to see him when the and the son were in the room door tachycardia with Dr. dao about further plan. Pulmonary and from medicine standpoint patient most likely will need to go to trach no PEG tube can be done for now expected the plan probably for Tuesday and from thereon if more stable can go for his barium enema to come with final diagnosis of the tumor or the finding in the cecum and the large intestine and from thereon further management can be planned. Patient still on multiple drips for pain management let pressure TPN and DT. 04/26: A Chin still on mechanical ventilation, sedated, he is slightly bit awaking when backing off on sedation is still very agitated between having quite bed elevated blood pressure and pulse rate did not succeed on weaning parameter and most likely he will need tracheostomy by tomorrow. PEG tube is negative be possible at this point because of the possibility of mass in the cecum with obstruction cankerous problem if he is more stable can go for barium enema and then PEG tube if there is no cecal mass likely his CEA came back negative. 04/27 patient examined bedside currently intubated D 10. Patient came in with abdominal pain, nausea, vomiting followed by a respiratory failure the next day leading to intubation. Patient is found to be agitated him on ventilator. Currently requiring 75 mics of propofol. On vital evaluation patient had a heart rate of 77 respiratory rate 26 blood pressure 159/62 on clear with pain d rip abdominal x-ray this morning shows nonspecific bowel pattern with the bilateral pleural effusion chest x-ray suggestive of pulmonary edema versus consolidation. Patient is currently on Lasix 40 mg IV twice a day and making good urine output 75 mL per hour. Blood cultures so far negative. Bronchoscopy results are negative so far. Plan for tracheostomy placement today. PEG tube is on hold until further information about the cecal mass/colitis. Review of system could not be obtained Objective - Vital Signs Vital signs: Vital Signs Temp 99.7 F H 04/27/19 08:00 Pulse 81 04/27/19 10:00 Resp 30 H 04/27/19 10:00 BP 108/56 04/27/19 04:30 Pulse Ox 97 04/27/19 10:00 Intake & Output 04/26/19 04/27/19 04/27/19 18:59 06:59 18:59 Intake Total 3764.700 1728.362 963.633 Output Total 3610 6985 635 Balance 154.700 -806.638 328.633 Weight 111.9 kg 108.6 kg Intake: IV 2128 1113 815 Mvi, Adult No.4 with Vit 168 K 10 ml Trace (Conc-1Ml/ Dose) 1 ml In Amino Acid 5%-D15w+Lytes*E* 1,000 ml @ 30 mls/hr IV .Q24H ELA Rx#:[id number] Mvi, Adult No.4 with Vit 294 126 K 10 ml Trace (Conc-1Ml/ Dose) 1 ml In Amino Acid 5%-D15w+Lytes*E* 1,000 ml @ 42 mls/hr IV .Q24H ELA Rx#:[id number] Piperacillin-Tazobactam 3 325 200 100 .375 gm In Sodium Chloride 0.9% 100 ml @ 25 mls/hr IVPB Q8H ELA Rx#: [id number] Sodium Chloride 0.9% 1, 260 220 80 000 ml @ 20 mls/hr IV . Q24H ELA Rx#:[id number] Vancomycin 1,750 mg In 500 Sodium Chloride 0.9% 500 ml 500 ml @ 167 mls/hr IVPB Q8H ELA Rx#: [id number] Vancomycin 2,000 mg In 1042 669 Sodium Chloride 0.9% 500 ml 500 ml @ 167 mls/hr IVPB Q8HR ELA Rx#: [id number] pressure bag 0.9 39 24 9 Intake, IV Titration 1636.700 615.362 148.633 Amount Clevidipine Butyrate 25 86.800 95.865 48.633 mg In Empty Bag 1 bag @ 1 MG/HR 2 mls/hr IV .Q24H ELA Rx#:[id number] Mvi, Adult No.4 with Vit 949.9 K 10 ml Trace (Conc-1Ml/ Dose) 1 ml In Amino Acid 5%-D15w+Lytes*E* 1,000 ml @ 42 mls/hr IV .Q24H ELA Rx#:[id number] Potassium Chloride 20 meq 300 In Water For Injection 1 100ml.bag @ 50 mls/hr IVPB Q2H ELA Rx#: [id number] Propofol 1,000 mg In 300.000 519.497 100 Empty Bag 1 bag @ Titrate IV .Q0M ELA Rx#: [id number] Output: Gastric Drainage 350 Urine 3260 1925 635 Other: Voiding Method Indwelling Catheter Indwelling Catheter # Voids 1 ABP, PAP, CO, CI - Last Documented Arterial Blood Pressure 146/57 - Exam - Constitutional General appearance: Intubated obese - EENT Eyes: anicteric sclerae, PERRLA, normal appearance - Neck Neck: no rigidity, no stridor, no thyromegaly - Respiratory Respiratory: bilateral: CTA diminished air entry bilaterally with crackles at bases - Cardiovascular Rhythm: regular Heart sounds: normal: S1, S2 Abnormal Heart Sounds: no systolic murmur, no diastolic murmur, no rub, no S3 Gallop, no S4 Gallop, no click, no other - Gastrointestinal General gastrointestinal: normal bowel sounds, soft - Integumentary Integumentary: no rash - Neurologic Neurologic: Could not be assessed - Musculoskeletal Musculoskeletal: Could not be assessed on sedation- Psychiatric Psychiatric: Agitated on sedation - Labs CBC & Chem 7: 04/27/19 05:25 04/27/19 05:25 Labs: Abnormal Lab Results - Last 24 Hours (Table) 04/26/19 04/26/19 04/26/19 Range/Units 11:47 17:20 17:21 RBC (4.30-5.90) m/uL Hgb (13.0-17.5) gm/dL Plt Count (150-450) k/uL Neutrophils # (1.3-7.7) k/uL ABG pH (7.35-7.45) ABG HCO3 (21-25) mmol/L ABG Total CO2 (19-24) mmol/L Potassium 3.4 L (3.5-5.1) mmol/L BUN (9-20) mg/dL Creatinine (0.66-1.25) mg/dL Glucose (74-99) mg/dL POC Glucose (mg/dL) 145 H 151 H (75-99) mg/dL 04/26/19 04/27/19 04/27/19 Range/Units 23:43 05:23 05:25 RBC (4.30-5.90) m/uL Hgb (13.0-17.5) gm/dL Plt Count (150-450) k/uL Neutrophils # (1.3-7.7) k/uL ABG pH (7.35-7.45) ABG HCO3 (21-25) mmol/L ABG Total CO2 (19-24) mmol/L Potassium (3.5-5.1) mmol/L BUN 24 H (9-20) mg/dL Creatinine 0.57 L (0.66-1.25) mg/dL Glucose 185 H (74-99) mg/dL POC Glucose (mg/dL) 127 H 169 H (75-99) mg/dL 04/27/19 04/27/19 Range/Units 05:25 07:09 RBC 4.25 L (4.30-5.90) m/uL Hgb 12.9 L (13.0-17.5) gm/dL Plt Count 452 H (150-450) k/uL Neutrophils # 8.1 H (1.3-7.7) k/uL ABG pH 7.46 H (7.35-7.45) ABG HCO3 27 H (21-25) mmol/L ABG Total CO2 28 H (19-24) mmol/L Potassium (3.5-5.1) mmol/L BUN (9-20) mg/dL Creatinine (0.66-1.25) mg/dL Glucose (74-99) mg/dL POC Glucose (mg/dL) (75-99) mg/dL Assessment and Plan Plan: 1 acute respiratory failure secondary to aspiration: Remain on mechanical ventilation, plan for tracheostomy today with history of COPD patient would have a possible longer term vent management. Continue updraft treatment continue to watch for any fluid overload. 2 acute aspiration pneumonia: Remain on mechanical ventilation still on gram- negative coverage with Zosyn and vancomycin for now continue Solu-Medrol and updraft treatment. 3 COPD: With mild exacerbation: Continue Solu-Medrol, continue O2 continue updraft treatment. 4 abdominal pain: With possible obstruction versus colitis versus malignancy in the cecum still seen Dr. garvey continue antibiotics barium study plan once patient is extubated or stable to be able to do the test. CEA was very low which still not extremity confirmative for no cancer. 5 delirium tremor: Patient had severe problem with agitation require sedation and paralyzed to take care of his agitation continue propofol 6 urgent hypertension: Remain on IV Vasotec hydralazine and labetalol. On Clevidipine drip 7 obstructive sleep apnea was on CPAP patient is on mechanical ventilation currently. 8 possible septicemia and sepsis: Patient blood culture was positive for coag- negative staph remain on vancomycin and Zosyn currently.r epeat blood culture are neg 9 type 2 diabetes: On insulin currently including insulin drip if needed continue to watch blood sugar to keep it below 150. 10 GI prophylaxis/severe GERD on pantoprazole IV. 11 DVT prophylaxis: Patient remain on Lovenox. CODE STATUS: Full code.
[2019-04-27 12:06] LABS: Glucose,Whole Blood 188 mg/dL (75-99)
[2019-04-27] MEDS: MVI, ADULT NO.4 WITH VIT K 10 ML, TRACE (CONC-1ML/DOSE) 1 ML in AMINO ACID 5%-D15W+LYTE... IV SCH ×3 (12:47)
[2019-04-27] MEDS: POTASSIUM CHLORIDE 10 MEQ in WATER FOR INJECTION 1 100ML.BAG IVPB SCH ×2 (12:48→14:15)
[2019-04-27] MEDS: SODIUM CHLORIDE 0.9% 1,000 ML IV SCH (12:50)
--- NOTE | 2019-04-27 13:59 | P.PN ---
Subjective Progress Note Date: 04/27/19 Principal diagnosis: acute hypoxic and hypercapnic respiratory failure with bilateral pneumonia, suggestive of aspiration pneumonia. And ARDS. patient was evaluated today on 04/23/2019, remains on mechanical ventilation, his ventilator settings are tidal volume of 450 assist-control rate of 26 FiO2 40% and PEEP of 5. Remains on propofol drip at 75 mcg/kg/m, remains on TPN.ABG this morning showed a pO2 of 66 pCO2 of 43 pH of 7.43, electrolytes are normal renal profile is normal CBC is normal. Patient is sedated, he continues to have significant airspace disease in both lungs, hence I will not attempt to wean and x-rayed the patient today, he continues to have significant issues related to his abdomen being addressed by surgery on the case, and he continues to have sig nificant airspace disease based on the chest x-ray today. Oxygenation seems to be a bit improving. Patient was reevaluated today on 04/24/2019, he had significant issues last night mostly extreme agitation, elevated blood pressure, significant tachypnea and tachycardia, patient required to be placed on Nimbex to adequately ventilate him, he also required labetalol drip, and he required placement on fentanyl drip which is presently at 0.5 mcg/kg/h. His labetalol drip was discontinued this morning. Blood pressure seems to be better controlled, and the heart rate seems to be better controlled. Plan to discontinue Nimbex if I can. And will continue fentanyl and propofol which is presently at 75 mcg/kg/m. Patient is calm today, his ventilator settings are assist control rate of 26 tidal volume of 450 FiO2 of 40% and PEEP of 5. Peak airway pressure is 37 plateau pressures are 18. ABG this morning showed a pO2 of 72 pCO2 of 47 pH of 7.39 and this is on a 40% FiO2. Electrolytes and renal profile are normal, chest x-ray continues to show worsening interstitial infiltrates bilaterally, possibility of interstitial edema is likely, hence I recommended a trial of higher dose of Lasix 40 mg IV push every 12 hours. His CBC is relatively normal, patient continues to have no bowel movements and he continues to have no bowel sounds. Remains on TPN, and his nasogastric tube is on low intermittent suctioning. Reevaluated today on 04/25/2019, remains in the ICU on mechanical ventilation. Continues to have intermittent episodes of agitation with elevated blood pressure and tachycardia, presently stable on propofol at 55 mcg/kg/m. His vent settings are assist-control 26 tidal volume of 450 FiO2 40% and PEEP of 5. ABG showed a pO2 of 71 pCO2 of 43 pH of 7.42. Chest x-ray continues to show bilateral airspace disease secondary to pneumonia and ARDS. Urine output is good renal profile is normal CBC is relatively unremarkable. Continues to have slightly distended abdomen and no bowel movements. This is being addressed by surgery on the case. Patient remains on TPN in the meantime. My plan today is to give the patient sedation holiday, and possibly check weaning parameters, and at least a trial of weaning if possible. However the patient gets extremely agitated that would be impossible. Reevaluated today on 04/26/2019, patient remains on mechanical ventilation, cammie campuzanoes to have intermittent episodes of agitation with tachypnea, tachycardia, and hypertension. Yesterday. Started the patient on clevidipine, he is back on clevidipine again today, at 10 mg per hour. His propofol is weaning down to 10 mcg/kg/m, patient is easily agitated, I plan to at least check mental status on the patient, patient is definitely not ready for weaning trials. But that could be attempted if he remains calm. Patient is not requiring any pressors at this point, his ventilator settings are assist control rate of 26 tidal volume of 450 FiO2 of 40% and PEEP is 5. Chest x-ray continues to show bilateral airspace disease specialist in the right lower lobe, and interstitial infiltrates bilaterally. Not much different from chest x-ray in the last few days. ABG showed a pO2 of 80, pCO2 of 39 pH of 7.47. His electrolytes and renal profile are noted to be relatively normal. Patient remains on TPN, remains on antibiotics, remains on diuretics, he is now on clevidipine for elevated blood pressure, he remains on propofol, remains on methylprednisolone 40 mg IV push every 8, and yesterday I had a long discussion with his family regarding his overall condition, and family is definitely agreeable to proceed with tracheostomy and PEG tube placement. Patient continues to have no bowel movements, and that is being addressed by surgery on the case. Patient was reevaluated today on 04/27/2019, remains in the ICU, remains on mechanical ventilation, ventilator settings are assist control rate of 26 tidal volume 450 FiO2 40% and PEEP of 5. Remains on propofol presently at 75 mcg/kg/m, remains on Levophed the pain 8 mg per hour. He is scheduled to undergo tracheostomy and possibly PEG tube placement today. May not have a PEG tube because of his ileus. Intermittently the patient gets extremely agitated while on mechanical ventilation, but today with a higher dose of propofol he seems to be quite calm. Yesterday he was weaned down on propofol, and his mental status was assessed. He was able to follow all instructions. Chest x- ray is basically the same, no change management expert the last 1 week. Continues to show bilateral airspace disease mostly in the right lower lobe and interstitial infiltrates bilaterally. His labs were all reviewed, seem to be unremarkable. Objective - Vital Signs Vital signs: Vital Signs Temp 98.1 F 04/27/19 12:00 Pulse 75 04/27/19 13:11 Resp 30 H 04/27/19 13:00 BP 108/56 04/27/19 04:30 Pulse Ox 98 04/27/19 13:00 Intake & Output 04/26/19 04/27/19 04/27/19 18:59 06:59 18:59 Intake Total 3764.700 4683.203 7357.921 Output Total 3610 2535 995 Balance 154.700 -806.638 316.921 Weight 111.9 kg 108.6 kg 108.6 kg Intake: IV 2128 1113 945 Mvi, Adult No.4 with Vit 168 K 10 ml Trace (Conc-1Ml/ Dose) 1 ml In Amino Acid 5%-D15w+Lytes*E* 1,000 ml @ 30 mls/hr IV .Q24H ELA Rx#:[id number] Mvi, Adult No.4 with Vit 294 210 K 10 ml Trace (Conc-1Ml/ Dose) 1 ml In Amino Acid 5%-D15w+Lytes*E* 1,000 ml @ 42 mls/hr IV .Q24H ELA Rx#:[id number] Piperacillin-Tazobactam 3 325 200 100 .375 gm In Sodium Chloride 0.9% 100 ml @ 25 mls/hr IVPB Q8H ELA Rx#: [id number] Sodium Chloride 0.9% 1, 260 220 120 000 ml @ 20 mls/hr IV . Q24H ELA Rx#:[id number] Vancomycin 1,750 mg In 500 Sodium Chloride 0.9% 500 ml 500 ml @ 167 mls/hr IVPB Q8H ELA Rx#: [id number] Vancomycin 2,000 mg In 1042 669 Sodium Chloride 0.9% 500 ml 500 ml @ 167 mls/hr IVPB Q8HR ELA Rx#: [id number] pressure bag 0.9 39 24 15 Intake, IV Titration 1636.700 615.362 366.921 Amount Clevidipine Butyrate 25 86.800 95.865 84.833 mg In Empty Bag 1 bag @ 1 MG/HR 2 mls/hr IV .Q24H ELA Rx#:[id number] Mvi, Adult No.4 with Vit 949.9 K 10 ml Trace (Conc-1Ml/ Dose) 1 ml In Amino Acid 5%-D15w+Lytes*E* 1,000 ml @ 42 mls/hr IV .Q24H ELA Rx#:[id number] Potassium Chloride 20 meq 300 In Water For Injection 1 100ml.bag @ 50 mls/hr IVPB Q2H ELA Rx#: [id number] Propofol 1,000 mg In 300.000 519.497 282.088 Empty Bag 1 bag @ Titrate IV .Q0M ELA Rx#: [id number] Output: Gastric Drainage 350 Urine 3260 2535 995 Other: Voiding Method Indwelling Catheter Indwelling Catheter # Voids 1 ABP, PAP, CO, CI - Last Documented Arterial Blood Pressure 165/67 - Exam Physical Exam: Revealed a 69-year-old white male intubated, Head: Atraumatic, normocephalic. HEENT:[Neck is supple.] [No neck masses.] [No thyromegaly.] [No JVD.]PERRLA, EOMI, no icterus. Left subclavian triple-lumen catheter is noted. Chest: [Minimal fine crackles at the right base, left side is diminished, no rhonchi no wheezes. Cardiac Exam: [Normal S1 and S2, no S3 gallop, no murmur.] Abdomen: [slightly distended, no tenderness, no rebound, no guarding, no bowel sounds. Extremities: [No clubbing, trace of bipedal edema, no cyanosis.] Neurological Exam: could not be assessed, patient is on propofol, Lymphatics: No lymphadenopathy. Psychiatric: Could not be addressed or assessed.] Skin: No rashes - Labs CBC & Chem 7: 04/27/19 05:25 04/27/19 05:25 Labs: Abnormal Lab Results - Last 24 Hours (Table) 04/26/19 04/26/19 04/26/19 Range/Units 17:20 17:21 23:43 RBC (4.30-5.90) m/uL Hgb (13.0-17.5) gm/dL Plt Count (150-450) k/uL Neutrophils # (1.3-7.7) k/uL ABG pH (7.35-7.45) ABG HCO3 (21-25) mmol/L ABG Total CO2 (19-24) mmol/L Potassium 3.4 L (3.5-5.1) mmol/L BUN (9-20) mg/dL Creatinine (0.66-1.25) mg/dL Glucose (74-99) mg/dL POC Glucose (mg/dL) 151 H 127 H (75-99) mg/dL 04/27/19 04/27/19 04/27/19 Range/Units 05:23 05:25 05:25 RBC 4.25 L (4.30-5.90) m/uL Hgb 12.9 L (13.0-17.5) gm/dL Plt Count 452 H (150-450) k/uL Neutrophils # 8.1 H (1.3-7.7) k/uL ABG pH (7.35-7.45) ABG HCO3 (21-25) mmol/L ABG Total CO2 (19-24) mmol/L Potassium (3.5-5.1) mmol/L BUN 24 H (9-20) mg/dL Creatinine 0.57 L (0.66-1.25) mg/dL Glucose 185 H (74-99) mg/dL POC Glucose (mg/dL) 169 H (75-99) mg/dL 04/27/19 04/27/19 Range/Units 07:09 11:54 RBC (4.30-5.90) m/uL Hgb (13.0-17.5) gm/dL Plt Count (150-450) k/uL Neutrophils # (1.3-7.7) k/uL ABG pH 7.46 H (7.35-7.45) ABG HCO3 27 H (21-25) mmol/L ABG Total CO2 28 H (19-24) mmol/L Potassium (3.5-5.1) mmol/L BUN (9-20) mg/dL Creatinine (0.66-1.25) mg/dL Glucose (74-99) mg/dL POC Glucose (mg/dL) 188 H (75-99) mg/dL Assessment and Plan Assessment: impression: Acute hypoxic and hypercapnic respiratory failure secondary to bilateral pneumonia possibly aspiration related, and ARDS. Abdominal distention, being followed by surgery. Patient was felt to have colitis. Hypertension, still requiring clevidipine. History of alcoholism, required significant sedation to keep him calm Obstructive sleep apnea syndrome Abdominal pain with evidence of colitis or possible malignancy, colonoscopy was unsuccessful. History of GERD remains on Protonix Type 2 diabetes. History of obstructive sleep apnea syndrome Recommendation: I updated the family again on his condition, patient is scheduled to undergo tracheostomy today, I ordered a flat plate of the abdomen, it showed nonspecific bowel loops pattern.. Seen in the cecum. Patient will remain presently on mechanical ventilation, continue ventilatory support, hemodynamic support, nutritional support, GI and DVT prophylaxis, antibiotics, continue to monitor daily labs, daily x-rays, continue TPN, prognosis is definitely poor and guarded, we'll continue to follow. Again the patient will be undergoing tracheostomy today. Family updated on his condition. Critical care time is 34 minutes Time with Patient: Greater than 30
[2019-04-27] MEDS ORDERED: PHENYLEPHRINE-0.9% NACL SYG 1 MG/10 ML SYRINGE ONE (14:50)
[2019-04-27] MEDS ORDERED: ROCURONIUM BROMIDE 10 MG/ML 10 ML VIAL IV ONE (14:50)
[2019-04-27] MEDS ORDERED: MIDAZOLAM 2 MG/2 ML VIAL ONE (14:50)
[2019-04-27] MEDS ORDERED: fentaNYL (PF) 50 MCG/ML 2 ML AMP ONE (14:50)
[2019-04-27] MEDS ORDERED: BUPIVACAINE (PF) 0.25% 30 ML VIAL SQ ONE ×2 (15:27→15:32)
--- NOTE | 2019-04-27 16:51 | P.OP ---
Date of Procedure: 04/27/19 Procedure(s) Performed: PREOPERATIVE DIAGNOSIS: Respiratory failure POSTOPERATIVE DIAGNOSIS: Same PROCEDURE: Tracheostomy SURGEON: Manoj EBL: Minimal ANESTHESIA: General COMPLICATIONS: None OPERATIVE PROCEDURE: Patient was placed in the operative table in the supine position. A shoulder roll was utilized. The neck was prepped and draped in usual sterile fashion. The skin was infiltrated with local anesthesia. A small cervical incision was created using the scalpel. Dissection through the subcutaneous fat and platysma layer took place using electrocautery. The underlying strap muscles were divided in the midline. The thyroid isthmus was divided using electrocautery as well. No bleeding was seen. The trachea was easily identified at this time. The endotracheal tube was advanced and the balloon was reinflated. The patient was preoxygenated with 100% FiO2. The FiO2 was then brought down to room air. Once the end title oxygen level was less than 35 a vertical tracheostomy was created using the electrocautery. This went through the second and third tracheal ring. The patient was again preoxygenated with 100% FiO2. The venetian blind installer was utilized. Carefully the endotracheal tube was withdrawn just proximal to our tracheostomy. The 8-[place] nonfenestrated tracheostomy catheter was advanced under direct visualization into the trachea. The obturator was inserted. This was then connected to the ventilator. Positive end tidal CO2 was confirmed. The tracheal ties were utilized. The trach was sutured to the skin superiorly using 2 separate 0 silk sutures. The skin was closed using 3-0 Vicryl sutures. A dressing was applied. DISPOSITION: Stable to icu
[2019-04-27] MEDS: MVI, ADULT NO.4 WITH VIT K 10 ML, TRACE (CONC-1ML/DOSE) 1 ML, POTASSIUM CHLORIDE 20 MEQ... IV SCH ×4 (17:16)
[2019-04-27 17:28] LABS: Glucose,Whole Blood 148 mg/dL (75-99)
[2019-04-27] MEDS: CISATRACURIUM 200 MG in SODIUM CHLORIDE 0.9% 180 ML IV SCH (20:27)
[2019-04-27 23:48] LABS: Glucose,Whole Blood 156 mg/dL (75-99)
[2019-04-28] MEDS: PROPOFOL 1,000 MG in EMPTY BAG 1 BAG IV SCH ×7 (00:25→23:37)
[2019-04-28] MEDS: VANCOMYCIN 1,750 MG in SODIUM CHLORIDE 0.9% 500 ML 500 ML IVPB SCH ×3 (02:02→18:37)
[2019-04-28] MEDS: IPRATROPIUM-ALBUTEROL 3 ML NEB INHALATION SCH ×6 (03:23→22:59)
[2019-04-28] MEDS: PIPERACILLIN-TAZOBACTAM 3.375 GM in SODIUM CHLORIDE 0.9% 100 ML IVPB SCH ×3 (04:53→19:58)
[2019-04-28] MEDS: ARTIFICIAL TEARS-HYPROMELLOSE DROPS 15 ML BTL BOTH EYES SCH ×6 (04:53→23:37)
[2019-04-28 05:06] LABS: Basophils % (A) 0 %; Eosinophils # (A) 0.1 k/uL (0-0.7); Eosinophils % (A) 1 %; HCT 36.4 % (39.0-53.0); HGB 11.8 gm/dL (13.0-17.5); Lymphocytes # (A) 0.8 k/uL (1.0-4.8); Lymphocytes % (A) 9 %; MCHC 32.4 g/dL (31.0-37.0); MCV 92.8 fL (80.0-100.0); Mean Platelet Volume 7.7; Monocytes # (A) 0.4 k/uL (0-1.0); Monocytes % (A) 5 %; Neutrophils # (A) 7.3 k/uL (1.3-7.7); Neutrophils % (A) 83 %; Platelet Count 372 k/uL (150-450); RBC 3.92 m/uL (4.30-5.90); RDW 14.5 % (11.5-15.5); WBC 8.7 k/uL (3.8-10.6)
[2019-04-28 05:25] LABS: African American GFR (CKD) >90 (>60 ml/min/1.73 sqM); Anion Gap 8 mmol/L; Blood Urea Nitrogen 28 mg/dL (9-20); Calcium 9.2 mg/dL (8.4-10.2); Carbon Dioxide 27 mmol/L (22-30); Chloride 105 mmol/L (98-107); Glucose 191 mg/dL (74-99); Magnesium 2.2 mg/dL (1.6-2.3); Phosphorus 4.1 mg/dL (2.5-4.5); Sodium 140 mmol/L (137-145)
[2019-04-28] MEDS: HYDROmorphone 1 MG/ML 1 ML SYRINGE IVP PRN ×4 (05:57→21:37)
[2019-04-28] MEDS: INSULIN ASPART (NovoLOG) 100 UNIT/ML VIAL SQ SCH ×3 (06:02→18:37)
[2019-04-28 06:06] LABS: Glucose,Whole Blood 169 mg/dL (75-99)
--- NOTE | 2019-04-28 06:08 | XR ---
EXAMINATION TYPE: XR chest 1V portable DATE OF EXAM: 04/28/2019 HISTORY: Trach. REFERENCE: Previous study dated 04/27/2019. FINDINGS: Tracheostomy tube is in place. Its tip overlies the tracheal air column in this single fron gaby projection. There is vascular congestion and pulmonary edema. The heart is minimally enlarged. There are bilatera l effusions. IMPRESSION: CONTINUING CHANGES OF CONGESTIVE HEART FAILURE.
[2019-04-28 07:56] LABS: ABG Base Excess 3.6 mmol/L; ABG HCO3 28 mmol/L (21-25); ABG Oxygen Saturation 96.5 % (94-97); ABG PCO2 43 mmHg (35-45); ABG PH 7.43 (7.35-7.45); ABG PO2 92 mmHg (83-108); ABG TCO2 29 mmol/L (19-24)
[2019-04-28 07:58] LABS: Allen Test Performed? NO
[2019-04-28] MEDS: fentaNYL (PF) 1,000 MCG in SODIUM CHLORIDE 0.9% 80 ML IV SCH (08:50)
[2019-04-28] MEDS: FUROSEMIDE 10 MG/ML 4 ML VIAL IV SCH ×2 (09:00→20:02)
[2019-04-28] MEDS: CHLORHEXIDINE GLUCONATE 15 ML CUP MUCOUS MEM SCH ×2 (09:00→20:06)
[2019-04-28] MEDS: HEPARIN SODIUM,PORCINE 5,000 UNIT/ML 1 ML VIAL SQ SCH ×2 (09:01→20:07)
[2019-04-28] MEDS: methylPREDNISolone SOD SUCCI 40 MG/ML 1 ML VIAL IV SCH ×3 (09:01→23:38)
[2019-04-28] MEDS: PANTOPRAZOLE 40 MG/10 ML VIAL IV SCH (09:01)
[2019-04-28] MEDS: ENALAPRILAT 1.25 MG/ML 1 ML VIAL IVP PRN (09:01)
[2019-04-28] MEDS: BUDESONIDE 1 MG/2 ML NEBU INHALATION SCH ×2 (09:10→19:13)
[2019-04-28] MEDS: hydrALAZINE HCL 20 MG/ML 1 ML VIAL IVP PRN (09:54)
--- NOTE | 2019-04-28 09:55 | P.PN ---
Progress Note - Text Progress Note Date: 04/28/19 Patient had tracheostomy placed yesterday. He is ventilating well. On exam his vital signs appear stable. Tracheostomy is clean dry intact. Patient will undergo workup of a possible cecal mass once his clinical condition is improved.
--- NOTE | 2019-04-28 10:30 | P.PN ---
Subjective Progress Note Date: 04/28/19 Principal diagnosis: acute hypoxic and hypercapnic respiratory failure with bilateral pneumonia, suggestive of aspiration pneumonia. And ARDS. patient was evaluated today on 04/23/2019, remains on mechanical ventilation, his ventilator settings are tidal volume of 450 assist-control rate of 26 FiO2 40% and PEEP of 5. Remains on propofol drip at 75 mcg/kg/m, remains on TPN.ABG this morning showed a pO2 of 66 pCO2 of 43 pH of 7.43, electrolytes are normal renal profile is normal CBC is normal. Patient is sedated, he continues to have significant airspace disease in both lungs, hence I will not attempt to wean and x-rayed the patient today, he continues to have significant issues related to his abdomen being addressed by surgery on the case, and he continues to have sig nificant airspace disease based on the chest x-ray today. Oxygenation seems to be a bit improving. Patient was reevaluated today on 04/24/2019, he had significant issues last night mostly extreme agitation, elevated blood pressure, significant tachypnea and tachycardia, patient required to be placed on Nimbex to adequately ventilate him, he also required labetalol drip, and he required placement on fentanyl drip which is presently at 0.5 mcg/kg/h. His labetalol drip was discontinued this morning. Blood pressure seems to be better controlled, and the heart rate seems to be better controlled. Plan to discontinue Nimbex if I can. And will continue fentanyl and propofol which is presently at 75 mcg/kg/m. Patient is calm today, his ventilator settings are assist control rate of 26 tidal volume of 450 FiO2 of 40% and PEEP of 5. Peak airway pressure is 37 plateau pressures are 18. ABG this morning showed a pO2 of 72 pCO2 of 47 pH of 7.39 and this is on a 40% FiO2. Electrolytes and renal profile are normal, chest x-ray continues to show worsening interstitial infiltrates bilaterally, possibility of interstitial edema is likely, hence I recommended a trial of higher dose of Lasix 40 mg IV push every 12 hours. His CBC is relatively normal, patient continues to have no bowel movements and he continues to have no bowel sounds. Remains on TPN, and his nasogastric tube is on low intermittent suctioning. Reevaluated today on 04/25/2019, remains in the ICU on mechanical ventilation. Continues to have intermittent episodes of agitation with elevated blood pressure and tachycardia, presently stable on propofol at 55 mcg/kg/m. His vent settings are assist-control 26 tidal volume of 450 FiO2 40% and PEEP of 5. ABG showed a pO2 of 71 pCO2 of 43 pH of 7.42. Chest x-ray continues to show bilateral airspace disease secondary to pneumonia and ARDS. Urine output is good renal profile is normal CBC is relatively unremarkable. Continues to have slightly distended abdomen and no bowel movements. This is being addressed by surgery on the case. Patient remains on TPN in the meantime. My plan today is to give the patient sedation holiday, and possibly check weaning parameters, and at least a trial of weaning if possible. However the patient gets extremely agitated that would be impossible. Reevaluated today on 04/26/2019, patient remains on mechanical ventilation, cammie campuzanoes to have intermittent episodes of agitation with tachypnea, tachycardia, and hypertension. Yesterday. Started the patient on clevidipine, he is back on clevidipine again today, at 10 mg per hour. His propofol is weaning down to 10 mcg/kg/m, patient is easily agitated, I plan to at least check mental status on the patient, patient is definitely not ready for weaning trials. But that could be attempted if he remains calm. Patient is not requiring any pressors at this point, his ventilator settings are assist control rate of 26 tidal volume of 450 FiO2 of 40% and PEEP is 5. Chest x-ray continues to show bilateral airspace disease specialist in the right lower lobe, and interstitial infiltrates bilaterally. Not much different from chest x-ray in the last few days. ABG showed a pO2 of 80, pCO2 of 39 pH of 7.47. His electrolytes and renal profile are noted to be relatively normal. Patient remains on TPN, remains on antibiotics, remains on diuretics, he is now on clevidipine for elevated blood pressure, he remains on propofol, remains on methylprednisolone 40 mg IV push every 8, and yesterday I had a long discussion with his family regarding his overall condition, and family is definitely agreeable to proceed with tracheostomy and PEG tube placement. Patient continues to have no bowel movements, and that is being addressed by surgery on the case. Patient was reevaluated today on 04/27/2019, remains in the ICU, remains on mechanical ventilation, ventilator settings are assist control rate of 26 tidal volume 450 FiO2 40% and PEEP of 5. Remains on propofol presently at 75 mcg/kg/m, remains on Levophed the pain 8 mg per hour. He is scheduled to undergo tracheostomy and possibly PEG tube placement today. May not have a PEG tube because of his ileus. Intermittently the patient gets extremely agitated while on mechanical ventilation, but today with a higher dose of propofol he seems to be quite calm. Yesterday he was weaned down on propofol, and his mental status was assessed. He was able to follow all instructions. Chest x- ray is basically the same, no ion exchange operator the last 1 week. Continues to show bilateral airspace disease mostly in the right lower lobe and interstitial infiltrates bilaterally. His labs were all reviewed, seem to be unremarkable. Reevaluated today on 04/28/2019, remains on mechanical ventilation, patient had his tracheostomy done yesterday, and the plan is to wake him up today, and hopefully give him a trial of pressure support and CPAP. I was able to evaluate the patient while the propofol was being tapered down, patient seems to be waking up, following extremely simple instructions, he is not quite ready to be placed on pressure support and CPAP at this point. His ventilator settings are tidal volume of 450 assist-control rate of 26 FiO2 40% PEEP of 5. Patient is off levo fed, he is off clevidipine, remains on TPN, propofol is presently at 15 mcg/kg/m. Patient is in normal sinus rhythm. Continues to have slight abdominal distention, and no bowel movements. Patient will eventually need workup for possible cecal mass once his clinical condition improved Objective - Vital Signs Vital signs: Vital Signs Temp 98.3 F 04/28/19 08:00 Pulse 57 L 04/28/19 09:32 Resp 28 H 04/28/19 09:32 BP 98/54 04/28/19 01:00 Pulse Ox 99 04/28/19 09:00 Intake & Output 04/27/19 04/28/19 04/28/19 18:59 06:59 18:59 Intake Total 2415.238 1962.477 271.733 Output Total 1490 2120 630 Balance 925.238 -157.523 -358.267 Weight 108.6 kg 107 kg Intake: IV 1863 1381 195 Mvi, Adult No.4 with Vit 294 K 10 ml Trace (Conc-1Ml/ Dose) 1 ml In Amino Acid 5%-D15w+Lytes*E* 1,000 ml @ 42 mls/hr IV .Q24H E[facility] Rx#:[id number] Mvi, Adult No.4 with Vit 42 504 126 K 10 ml Trace (Conc-1Ml/ Dose) 1 ml Potassium Chloride 20 meq In Amino Acid 5%-D15w+Lytes*E* 1, 000 ml @ 42 mls/hr IV . Q24H ELA Rx#:[id number] Piperacillin-Tazobactam 3 100 100 .375 gm In Sodium Chloride 0.9% 100 ml @ 25 mls/hr IVPB Q8H ELA Rx#: [id number] Potassium Chloride 10 meq 200 In Water For Injection 1 100ml.bag @ 100 mls/hr IVPB Q1H ELA Rx#: [id number] Sodium Chloride 0.9% 1, 200 240 60 000 ml @ 20 mls/hr IV . Q24H ELA Rx#:[id number] Vancomycin 1,750 mg In 1000 501 Sodium Chloride 0.9% 500 ml 500 ml @ 167 mls/hr IVPB Q8H ELA Rx#: [id number] pressure bag 0.9 27 36 9 Intake, IV Titration 552.238 581.477 76.733 Amount Clevidipine Butyrate 25 95.966 15.033 mg In Empty Bag 1 bag @ 1 MG/HR 2 mls/hr IV .Q24H ELA Rx#:[id number] Propofol 1,000 mg In 456.272 566.444 76.733 Empty Bag 1 bag @ Titrate IV .Q0M ELA Rx#: [id number] Output: Gastric Drainage 450 150 Urine 1480 1670 480 Estimated Blood Loss 10 Other: Voiding Method Indwelling Catheter Indwelling Catheter ABP, PAP, CO, CI - Last Documented Arterial Blood Pressure 169/73 - Exam Physical Exam: Revealed a 69-year-old white male intubated, on 15 mcg/kg/m of propofol. Head: Atraumatic, normocephalic. Tracheostomy is intact. HEENT:[Neck is supple.] [No neck masses.] [No thyromegaly.] [No JVD.]PERRLA, EOMI, no icterus. Chest: [Crackles at the bases no rhonchi and no wheezes. Cardiac Exam: [Normal S1 and S2, no S3 gallop, no murmur.] Abdomen: [slightly distended, no tenderness, no rebound, no guarding, no bowel sounds. Extremities: [No clubbing, trace of bipedal edema, no cyanosis.] Neurological Exam: Arousable on a small dose of propofol, follows very simple instructions. Lymphatics: No lymphadenopathy. Psychiatric: Could not be addressed or assessed.] Skin: No rashes - Labs CBC & Chem 7: 04/28/19 04:55 04/28/19 04:55 Labs: Abnormal Lab Results - Last 24 Hours (Table) 04/27/19 04/27/19 04/27/19 Range/Units 11:54 17:14 23:37 RBC (4.30-5.90) m/uL Hgb (13.0-17.5) gm/dL Hct (39.0-53.0) % Lymphocytes # (1.0-4.8) k/uL ABG HCO3 (21-25) mmol/L ABG Total CO2 (19-24) mmol/L BUN (9-20) mg/dL Creatinine (0.66-1.25) mg/dL Glucose (74-99) mg/dL POC Glucose (mg/dL) 188 H 148 H 156 H (75-99) mg/dL 04/28/19 04/28/19 04/28/19 Range/Units 04:55 04:55 05:54 RBC 3.92 L (4.30-5.90) m/uL Hgb 11.8 L (13.0-17.5) gm/dL Hct 36.4 L (39.0-53.0) % Lymphocytes # 0.8 L (1.0-4.8) k/uL ABG HCO3 (21-25) mmol/L ABG Total CO2 (19-24) mmol/L BUN 28 H (9-20) mg/dL Creatinine 0.56 L (0.66-1.25) mg/dL Glucose 191 H (74-99) mg/dL POC Glucose (mg/dL) 169 H (75-99) mg/dL 04/28/19 Range/Units 07:53 RBC (4.30-5.90) m/uL Hgb (13.0-17.5) gm/dL Hct (39.0-53.0) % Lymphocytes # (1.0-4.8) k/uL ABG HCO3 28 H (21-25) mmol/L ABG Total CO2 29 H (19-24) mmol/L BUN (9-20) mg/dL Creatinine (0.66-1.25) mg/dL Glucose (74-99) mg/dL POC Glucose (mg/dL) (75-99) mg/dL Assessment and Plan Assessment: impression: Acute hypoxic and hypercapnic respiratory failure secondary to bilateral pneumonia possibly aspiration related, and ARDS. Abdominal distention, being followed by surgery. Patient was felt to have colitis., Possible cecal mass. Hypertension, intermittently on clevidipine History of alcoholism, required significant sedation to keep him calm Obstructive sleep apnea syndrome Abdominal pain with evidence of colitis or possible malignancy, colonoscopy was unsuccessful. History of GERD remains on Protonix Type 2 diabetes. History of obstructive sleep apnea syndrome Status post tracheostomy on 04/27/2019 mostly because of failure to wean. Recommendation: Continue ventilatory support, nutritional support/TPN, continue to taper down propofol and assess mental status, may consider pressure support and CPAP mode of weaning today, continue to monitor blood pressure, and uses clevidipine if needed. Continue alcohol withdrawal protocol. Continue antibiotics, continue GI and DVT prophylaxis, continue to monitor sugars and use insulin as per protocol, continue tracheostomy care. We will follow closely. Overall prognosis remains definitely poor and guarded. Family will be updated on his condition today. Chest x-ray reviewed today is basically the same. Continues to show bilateral infiltrates, right more so than left. Critical care time is 35 minutes. Time with Patient: Greater than 30
--- NOTE | 2019-04-28 11:41 | P.PN ---
Subjective Progress Note Date: 04/28/19 Acute respiratory failure, aspiration pneumonia, severe abdominal pain, possible malignancy in the cecum, possible colitis, delirium tremor, urgent hypertension, COPD This is a 69-year-old male patient of Dr. Gallardo with past medical history of hypertension, hyperlipidemia, COPD, gastroesophageal reflux disease, remote history of tobacco use, obstructive sleep apnea not using CPAP. Patient complains of sudden onset of abdominal pain starting on Tuesday. He also complains of bloating in the abdomen for the past couple months as well as weight loss of 5-10 pounds over the past 3 months. He complains of decreased appetite. He states he has had occasional burgundy stools. He denies any black stools, no diarrhea, no vomiting. He denies any urinary symptoms. Patient states he had his last colonoscopy in 2013 which was normal. Patient presents to [facility] emergency center for evaluation. Abdominal x-ray shows no acute findings. CAT scan of the abdomen and pelvis showed marked thickening of the cecum concerning for malignancy. A nonspecific colitis is not excluded but felt to be less likely. Thickening in the gastric rugae which may be secondary to under distention versus a nonspecific gastritis. EKG is a sinus tachycardia with right bundle branch block, left AFB. WBC 16.7, hemoglobin 14.7, creatinine 0.74. Troponin negative. Amylase and lipase, liver function tests all normal. Urinalysis was clear with 1+ protein. Patient was admitted to the [facility] floor, consult with Dr. Givens, IV fluids, pain medications and Zofran. Plan is for colonoscopy tomorrow. 04/17: Overnight, patient developed acute respiratory failure and was transferred to the intensive care unit and patient placed on BiPAP, currently under care of Dr. Caballero. Patient subsequently intubated and placed on mechanical ventilation. Echocardiogram from yesterday reveals EF 55-60% with moderate concentric left ventricle hypertrophy, trace mitral regurgitation, trace tricuspid regurgitation, no pulmonary hypertension. No pericardial effusion. Chest x-ray shows new right basilar and pneumonic consolidation with diminished inspiration background right hilar and left basilar more patchy edema and or infiltrate felt present. Repeat chest x-ray shows new endotracheal tube with placement described with recommendations to pullback. Mild cardiomegaly and low lung volumes with bilateral hilar edema and/or infiltrate and right basilar consolidation all redemonstrated increasing left basilar infiltrate felt present. Abdomen was more distended and NG tube was placed. Immediate surgical consultation was requested by Dr. Caballero. Dr. Givens attempted bedside colonoscopy but patient was not properly prepped. He is scheduled for CAT scan of the abdomen and pelvis this afternoon at 2:30. NG tube is in place with bile color returned. Family members are in the waiting room and have been updated. 04/18: The patient remains in intensive care unit intubated and on mechanical ventilation. Vent settings have been decreased and no plan for sedation holiday today. He was weaned off norepinephrine this morning. Urine output has been 50-75 mL per hour. Noted that the Goldberg tube is pink but urine is alesia most likely a drug reaction. Patient has had several bowel movements this morning. Antibiotics have been switched to Zosyn and vancomycin. TSH 0.224 with normal free T4 at 1.24. Surgical consultation has been changed to Dr. Garvey per family wishes. 04/19: Patient remains in intensive care unit intubated and on mechanical ventilation. Patient has had increased purulent secretions and underwent reintubation by Dr. Caballero. He also perform bronchoscopy at the bedside and suction 20 ML's purulent material specimen was sent to the lab for cytology and culture. He is concern for ARDS. Patient is continued on Zosyn and vancomycin. He has been off vasopressors since yesterday morning. Patient has had a small amount of liquid stool today much decreased from yesterday. Dr. Garvey is on for surgery at this point. Patient is having minimal output from NG tube. Bowel sounds remain hypoactive. Consult has been added for GI regarding concern for ischemic colitis. 04/20: Patient remains intubated and on mechanical ventilation. Repeat chest x- ray shows continued mild to moderate heart failure. Small to moderate effusions with prominent bibasilar atelectasis and/or consolidation persists. Dr. Garvey is planning for bedside colonoscopy today. Patient was ordered for soapsuds enema last night and this morning. Tube feedings on hold. He has been afebrile, heart rate in the 50s and 60s, blood pressure 141/66. Pulse ox 99%. WBC 8.1, hemoglobin 11.2. Creatinine 0.65. Bronchial washing cytology is pending. Bronchial cultures in progress. Patient will need to start tube feedings or TPN depending on results of colonoscopy scheduled for this afternoon. Patient was given 1 dose of IV Lasix this morning and is diuresing well. Family in the waiting room have been updated. 04/21: Patient remains in the bed, FiO2 40%, PEEP of 6, NG tube has been placed and had taken out the OG tube, fecaloid billous contents are observed in the NG tube, bowel sounds are very diminished today, no bowel movements over the past 24 hours, x-rays of the abdomen will be done to evaluate for progressive bowel obstruction, patient remains to be afebrile, no leukocytosis bronchial washing cultures shows no normal zander vital signs are stable no hypotensive events, patient is slightly hypotensive on IV Solu-Medrol 40 every 8 04/23: Patient remains intubated and on mechanical ventilation. Dr. Dunham does not plan for attempt at weaning today. He is started him on hydralazine for blood pressure control. Patient has been started on TPN. On Tuesday, patient underwent colonoscopy with Dr. Garvey that revealed reticulosis, tortuous colon a nd recommends once patient is off ventilation to have barium enema to evaluate the ileocecal valve. Keep NG tube post extubation and hold tube feedings for now. No bowel movement today. 04/24: Patient had a rough night became significantly hypertensive, tachypneic and tachycardic. Patient was started on labetalol drip once other options were attempted without success and this was weaned off this morning. Patient also was placed on Nimbex and fentanyl drip which are to be weaned off today. Chest x-ray shows worsening interstitial infiltrates bilaterally and possible interstitial edema. Dr. Dunham increase Lasix to 40 mg IV push every 12 hours. Patient has not had a bowel movement. He remains on TPN and NG tube to suction. Urine output is adequate, tea-colored. Discussed yesterday the possibility of needing a trach and PEG with family members. At this time, Dr. Dunham would like to hold off. 04/25: Patient is still sedated on mechanical ventilation he had failed his weaning parameter today I want to see him when the and the son were in the room door tachycardia with Dr. dao about further plan. Pulmonary and from medicine standpoint patient most likely will need to go to trach no PEG tube can be done for now expected the plan probably for Tuesday and from thereon if more stable can go for his barium enema to come with final diagnosis of the tumor or the finding in the cecum and the large intestine and from thereon further management can be planned. Patient still on multiple drips for pain management let pressure TPN and DT. 04/26: A Chin still on mechanical ventilation, sedated, he is slightly bit awaking when backing off on sedation is still very agitated between having quite bed elevated blood pressure and pulse rate did not succeed on weaning parameter and most likely he will need tracheostomy by tomorrow. PEG tube is negative be possible at this point because of the possibility of mass in the cecum with obstruction cankerous problem if he is more stable can go for barium enema and then PEG tube if there is no cecal mass likely his CEA came back negative. 04/27 patient examined bedside currently intubated D 10. Patient came in with abdominal pain, nausea, vomiting followed by a respiratory failure the next day leading to intubation. Patient is found to be agitated him on ventilator. Currently requiring 75 mics of propofol. On vital evaluation patient had a heart rate of 77 respiratory rate 26 blood pressure 159/62 on clear with pain d rip abdominal x-ray this morning shows nonspecific bowel pattern with the bilateral pleural effusion chest x-ray suggestive of pulmonary edema versus consolidation. Patient is currently on Lasix 40 mg IV twice a day and making good urine output 75 mL per hour. Blood cultures so far negative. Bronchoscopy results are negative so far. Plan for tracheostomy placement today. PEG tube is on hold until further information about the cecal mass/colitis. 04/28: Examined at bedside currently on CPAP. Patient was on a sedation holiday for approximately 1 hour sedation has been increased due to fatigue and agitation. Vital signs have been stable blood pressure 151/60 pulse ox a 97% on CPAP pulse rate 98. Patient was able to follow commands however week. Patient was able to nod head and answer actions appropriately. Family at the bedside discussing plan of care. Continue nutritional support with TPN. Review of system could not be obtained Objective - Vital Signs Vital signs: Vital Signs Temp 98.3 F 04/28/19 08:00 Pulse 98 04/28/19 11:00 Resp 20 04/28/19 11:00 BP 121/66 04/28/19 11:00 Pulse Ox 97 04/28/19 11:00 Intake & Output 04/27/19 04/28/19 04/28/19 18:59 06:59 18:59 Intake Total 2415.238 1962.477 401.733 Output Total 1490 2120 2285 Balance 925.238 -157.523 -1883.267 Weight 108.6 kg 107 kg Intake: IV 1863 1381 325 Mvi, Adult No.4 with Vit 294 K 10 ml Trace (Conc-1Ml/ Dose) 1 ml In Amino Acid 5%-D15w+Lytes*E* 1,000 ml @ 42 mls/hr IV .Q24H ELA Rx#:[id number] Mvi, Adult No.4 with Vit 42 504 210 K 10 ml Trace (Conc-1Ml/ Dose) 1 ml Potassium Chloride 20 meq In Amino Acid 5%-D15w+Lytes*E* 1, 000 ml @ 42 mls/hr IV . Q24H ELA Rx#:[id number] Piperacillin-Tazobactam 3 100 100 .375 gm In Sodium Chloride 0.9% 100 ml @ 25 mls/hr IVPB Q8H ELA Rx#: [id number] Potassium Chloride 10 meq 200 In Water For Injection 1 100ml.bag @ 100 mls/hr IVPB Q1H ELA Rx#: [id number] Sodium Chloride 0.9% 1, 200 240 100 000 ml @ 20 mls/hr IV . Q24H ELA Rx#:[id number] Vancomycin 1,750 mg In 1000 501 Sodium Chloride 0.9% 500 ml 500 ml @ 167 mls/hr IVPB Q8H ELA Rx#: [id number] pressure bag 0.9 27 36 15 Intake, IV Titration 552.238 581.477 76.733 Amount Clevidipine Butyrate 25 95.966 15.033 mg In Empty Bag 1 bag @ 1 MG/HR 2 mls/hr IV .Q24H ELA Rx#:[id number] Propofol 1,000 mg In 456.272 566.444 76.733 Empty Bag 1 bag @ Titrate IV .Q0M ELA Rx#: [id number] Output: Gastric Drainage 450 150 Urine 1480 1670 2135 Estimated Blood Loss 10 Other: Voiding Method Indwelling Catheter Indwelling Catheter ABP, PAP, CO, CI - Last Documented Arterial Blood Pressure 151/60 - Constitutional General appearance: Present: no acute distress, obese - EENT Eyes: Present: anicteric sclerae, PERRLA, normal appearance ENT: Present: hearing grossly normal - Neck Neck: Absent: rigidity, stridor, thyromegaly - Respiratory Respiratory: bilateral: CTA, diminished - Cardiovascular Rhythm: regular Heart sounds: normal: S1, S2 Abnormal Heart Sounds: Absent: systolic murmur, diastolic murmur, rub, S3 Gallop, S4 Gallop, click - Gastrointestinal General gastrointestinal: Present: normal bowel sounds, soft - Integumentary Integumentary: Present: decreased turgor, normal - Neurologic Neurologic Comment(s): Able to follow commands 4 extremities, generalized weakness - Musculoskeletal Musculoskeletal: Present: generalized weakness - Psychiatric Psychiatric Comment(s): Alert to self - Labs CBC & Chem 7: 04/28/19 04:55 04/28/19 04:55 Labs: Abnormal Lab Results - Last 24 Hours (Table) 04/27/19 04/27/19 04/27/19 Range/Units 11:54 17:14 23:37 RBC (4.30-5.90) m/uL Hgb (13.0-17.5) gm/dL Hct (39.0-53.0) % Lymphocytes # (1.0-4.8) k/uL ABG HCO3 (21-25) mmol/L ABG Total CO2 (19-24) mmol/L BUN (9-20) mg/dL Creatinine (0.66-1.25) mg/dL Glucose (74-99) mg/dL POC Glucose (mg/dL) 188 H 148 H 156 H (75-99) mg/dL 04/28/19 04/28/19 04/28/19 Range/Units 04:55 04:55 05:54 RBC 3.92 L (4.30-5.90) m/uL Hgb 11.8 L (13.0-17.5) gm/dL Hct 36.4 L (39.0-53.0) % Lymphocytes # 0.8 L (1.0-4.8) k/uL ABG HCO3 (21-25) mmol/L ABG Total CO2 (19-24) mmol/L BUN 28 H (9-20) mg/dL Creatinine 0.56 L (0.66-1.25) mg/dL Glucose 191 H (74-99) mg/dL POC Glucose (mg/dL) 169 H (75-99) mg/dL 04/28/19 Range/Units 07:53 RBC (4.30-5.90) m/uL Hgb (13.0-17.5) gm/dL Hct (39.0-53.0) % Lymphocytes # (1.0-4.8) k/uL ABG HCO3 28 H (21-25) mmol/L ABG Total CO2 29 H (19-24) mmol/L BUN (9-20) mg/dL Creatinine (0.66-1.25) mg/dL Glucose (74-99) mg/dL POC Glucose (mg/dL) (75-99) mg/dL Assessment and Plan Plan: 1. acute respiratory failure secondary to aspiration: Remain on mechanical ventilation, plan for tracheostomy today with history of COPD patient would have a possible longer term vent management. Continue updraft treatment continue to watch for any fluid overload. 2. acute aspiration pneumonia: Remain on mechanical ventilation still on gram- negative coverage with Zosyn and vancomycin for now continue Solu-Medrol and updraft treatment. Repeat chest x-ray shows continuing changes of congestive heart failure 3. COPD: With mild exacerbation: Continue Solu-Medrol, continue O2 continue updraft treatment. 4. abdominal pain: With possible obstruction versus colitis versus malignancy in the cecum still seen Dr. garvey continue antibiotics barium study plan once patient is extubated or stable to be able to do the test. CEA was very low which still not extremity confirmative for no cancer. Abdominal x-ray shows nonspecific abdomen. No dilated bowel loops. There seen in the rectum. Bilat eral infiltrate and pleural effusion. 5. delirium tremor: Patient had severe problem with agitation require sedation and paralyzed to take care of his agitation continue propofol 6. urgent hypertension: Remain on IV Vasotec hydralazine and labetalol. On Clevidipine drip 7. obstructive sleep apnea was on CPAP patient is on mechanical ventilation currently. 8. possible septicemia and sepsis: Patient blood culture was positive for coag- negative staph remain on vancomycin and Zosyn currently.r epeat blood culture are neg 9. type 2 diabetes: On insulin currently including insulin drip if needed continue to watch blood sugar to keep it below 150. 10. GI prophylaxis/severe GERD on pantoprazole IV. 11. DVT prophylaxis: Patient remain on Lovenox. CODE STATUS: Full code. Impression and plan of care have been directed as dictated by the signing physician. Fabi Pisano nurse practitioner acting as scribe for signing physician.
[2019-04-28 12:32] LABS: Glucose,Whole Blood 181 mg/dL (75-99)
[2019-04-28] MEDS: SODIUM CHLORIDE 0.9% 1,000 ML IV SCH (13:56)
[2019-04-28] MEDS ORDERED: VANCOMYCIN TROUGH DUE 1 EACH MISC MISCELLANE ONE (17:00)
[2019-04-28] MEDS: MVI, ADULT NO.4 WITH VIT K 10 ML, TRACE (CONC-1ML/DOSE) 1 ML, POTASSIUM CHLORIDE 20 MEQ... IV SCH ×4 (17:41)
[2019-04-28 18:34] LABS: Glucose,Whole Blood 160 mg/dL (75-99)
[2019-04-28] MEDS: CISATRACURIUM 200 MG in SODIUM CHLORIDE 0.9% 180 ML IV SCH (19:46)
[2019-04-28] MEDS: VANCOMYCIN 1,500 MG in SODIUM CHLORIDE 0.9% 250 ML IVPB SCH (20:08)
[2019-04-29] LABS: Glucose,Whole Blood 143 mg/dL (75-99)
[2019-04-29] MEDS: INSULIN ASPART (NovoLOG) 100 UNIT/ML VIAL SQ SCH ×4 (00:34→18:54)
[2019-04-29] MEDS: IPRATROPIUM-ALBUTEROL 3 ML NEB INHALATION SCH ×6 (03:03→23:05)
[2019-04-29] MEDS: PROPOFOL 1,000 MG in EMPTY BAG 1 BAG IV SCH ×3 (04:00→22:30)
[2019-04-29] MEDS: VANCOMYCIN 1,500 MG in SODIUM CHLORIDE 0.9% 250 ML IVPB SCH ×3 (05:08→20:24)
[2019-04-29] MEDS: PIPERACILLIN-TAZOBACTAM 3.375 GM in SODIUM CHLORIDE 0.9% 100 ML IVPB SCH ×3 (05:08→20:24)
[2019-04-29] MEDS: fentaNYL (PF) 1,000 MCG in SODIUM CHLORIDE 0.9% 80 ML IV SCH ×2 (05:09→16:46)
[2019-04-29] MEDS: ARTIFICIAL TEARS-HYPROMELLOSE DROPS 15 ML BTL BOTH EYES SCH ×5 (05:10→20:25)
[2019-04-29] MEDS: HYDROmorphone 1 MG/ML 1 ML SYRINGE IVP PRN ×3 (05:18→20:33)
[2019-04-29 05:51] LABS: Basophils % (A) 0 %; Eosinophils % (A) 0 %; HCT 38.8 % (39.0-53.0); HGB 12.4 gm/dL (13.0-17.5); Lymphocytes # (A) 0.9 k/uL (1.0-4.8); Lymphocytes % (A) 9 %; MCH 29.6 pg (25.0-35.0); MCHC 32.1 g/dL (31.0-37.0); MCV 92.4 fL (80.0-100.0); Mean Platelet Volume 7.6; Monocytes # (A) 0.5 k/uL (0-1.0); Monocytes % (A) 5 %; Neutrophils # (A) 7.9 k/uL (1.3-7.7); Neutrophils % (A) 84 %; Platelet Count 413 k/uL (150-450); RDW 14.2 % (11.5-15.5); WBC 9.4 k/uL (3.8-10.6)
[2019-04-29 06:08] LABS: Glucose,Whole Blood 175 mg/dL (75-99)
[2019-04-29 06:09] LABS: African American GFR (CKD) >90 (>60 ml/min/1.73 sqM); Anion Gap 9 mmol/L; Blood Urea Nitrogen 31 mg/dL (9-20); Calcium 9.6 mg/dL (8.4-10.2); Carbon Dioxide 28 mmol/L (22-30); Chloride 105 mmol/L (98-107); Glucose 185 mg/dL (74-99); Potassium 3.7 mmol/L (3.5-5.1); Sodium 142 mmol/L (137-145)
--- NOTE | 2019-04-29 06:34 | XR ---
EXAMINATION TYPE: XR chest 1V portable DATE OF EXAM: 04/29/2019 HISTORY: CHF. REFERENCE: Previous study dated 04/28/2019. FINDINGS: There is a tracheostomy tube in place. Its tip overlies the tracheal air column in this sin gle frontal projection. A left subclavian catheter is in place. Its tip is in the SVC. The heart is enlarged. There is vascular congestion and pulmonary edema. I suspect small effusions, g reater on the right than the left. IMPRESSION: CONTINUING CHANGES OF CONGESTIVE HEART FAILURE.
[2019-04-29 06:46] LABS: ABG Base Excess 4.8 mmol/L; ABG HCO3 29 mmol/L (21-25); ABG Oxygen Saturation 94.6 % (94-97); ABG PCO2 40 mmHg (35-45); ABG PH 7.46 (7.35-7.45); ABG PO2 72 mmHg (83-108); ABG TCO2 30 mmol/L (19-24)
[2019-04-29] MEDS: BUDESONIDE 1 MG/2 ML NEBU INHALATION SCH ×2 (07:33→19:19)
[2019-04-29] MEDS: FUROSEMIDE 10 MG/ML 4 ML VIAL IV SCH ×2 (07:59→16:58)
[2019-04-29] MEDS: methylPREDNISolone SOD SUCCI 40 MG/ML 1 ML VIAL IV SCH ×2 (07:59→16:58)
[2019-04-29] MEDS: HEPARIN SODIUM,PORCINE 5,000 UNIT/ML 1 ML VIAL SQ SCH ×2 (07:59→20:24)
[2019-04-29] MEDS: POTASSIUM CHLORIDE 10 MEQ in WATER FOR INJECTION 1 100ML.BAG IVPB SCH ×2 (07:59→09:25)
[2019-04-29] MEDS: CHLORHEXIDINE GLUCONATE 15 ML CUP MUCOUS MEM SCH ×2 (07:59→20:24)
[2019-04-29] MEDS: PANTOPRAZOLE 40 MG/10 ML VIAL IV SCH (08:00)
--- NOTE | 2019-04-29 10:54 | P.PN ---
Subjective Progress Note Date: 04/29/19 Principal diagnosis: acute hypoxic and hypercapnic respiratory failure with bilateral pneumonia, suggestive of aspiration pneumonia. And ARDS. patient was evaluated today on 04/23/2019, remains on mechanical ventilation, his ventilator settings are tidal volume of 450 assist-control rate of 26 FiO2 40% and PEEP of 5. Remains on propofol drip at 75 mcg/kg/m, remains on TPN.ABG this morning showed a pO2 of 66 pCO2 of 43 pH of 7.43, electrolytes are normal renal profile is normal CBC is normal. Patient is sedated, he continues to have significant airspace disease in both lungs, hence I will not attempt to wean and x-rayed the patient today, he continues to have significant issues related to his abdomen being addressed by surgery on the case, and he continues to have sig nificant airspace disease based on the chest x-ray today. Oxygenation seems to be a bit improving. Patient was reevaluated today on 04/24/2019, he had significant issues last night mostly extreme agitation, elevated blood pressure, significant tachypnea and tachycardia, patient required to be placed on Nimbex to adequately ventilate him, he also required labetalol drip, and he required placement on fentanyl drip which is presently at 0.5 mcg/kg/h. His labetalol drip was discontinued this morning. Blood pressure seems to be better controlled, and the heart rate seems to be better controlled. Plan to discontinue Nimbex if I can. And will continue fentanyl and propofol which is presently at 75 mcg/kg/m. Patient is calm today, his ventilator settings are assist control rate of 26 tidal volume of 450 FiO2 of 40% and PEEP of 5. Peak airway pressure is 37 plateau pressures are 18. ABG this morning showed a pO2 of 72 pCO2 of 47 pH of 7.39 and this is on a 40% FiO2. Electrolytes and renal profile are normal, chest x-ray continues to show worsening interstitial infiltrates bilaterally, possibility of interstitial edema is likely, hence I recommended a trial of higher dose of Lasix 40 mg IV push every 12 hours. His CBC is relatively normal, patient continues to have no bowel movements and he continues to have no bowel sounds. Remains on TPN, and his nasogastric tube is on low intermittent suctioning. Reevaluated today on 04/25/2019, remains in the ICU on mechanical ventilation. Continues to have intermittent episodes of agitation with elevated blood pressure and tachycardia, presently stable on propofol at 55 mcg/kg/m. His vent settings are assist-control 26 tidal volume of 450 FiO2 40% and PEEP of 5. ABG showed a pO2 of 71 pCO2 of 43 pH of 7.42. Chest x-ray continues to show bilateral airspace disease secondary to pneumonia and ARDS. Urine output is good renal profile is normal CBC is relatively unremarkable. Continues to have slightly distended abdomen and no bowel movements. This is being addressed by surgery on the case. Patient remains on TPN in the meantime. My plan today is to give the patient sedation holiday, and possibly check weaning parameters, and at least a trial of weaning if possible. However the patient gets extremely agitated that would be impossible. Reevaluated today on 04/26/2019, patient remains on mechanical ventilation, cammie campuzanoes to have intermittent episodes of agitation with tachypnea, tachycardia, and hypertension. Yesterday. Started the patient on clevidipine, he is back on clevidipine again today, at 10 mg per hour. His propofol is weaning down to 10 mcg/kg/m, patient is easily agitated, I plan to at least check mental status on the patient, patient is definitely not ready for weaning trials. But that could be attempted if he remains calm. Patient is not requiring any pressors at this point, his ventilator settings are assist control rate of 26 tidal volume of 450 FiO2 of 40% and PEEP is 5. Chest x-ray continues to show bilateral airspace disease specialist in the right lower lobe, and interstitial infiltrates bilaterally. Not much different from chest x-ray in the last few days. ABG showed a pO2 of 80, pCO2 of 39 pH of 7.47. His electrolytes and renal profile are noted to be relatively normal. Patient remains on TPN, remains on antibiotics, remains on diuretics, he is now on clevidipine for elevated blood pressure, he remains on propofol, remains on methylprednisolone 40 mg IV push every 8, and yesterday I had a long discussion with his family regarding his overall condition, and family is definitely agreeable to proceed with tracheostomy and PEG tube placement. Patient continues to have no bowel movements, and that is being addressed by surgery on the case. Patient was reevaluated today on 04/27/2019, remains in the ICU, remains on mechanical ventilation, ventilator settings are assist control rate of 26 tidal volume 450 FiO2 40% and PEEP of 5. Remains on propofol presently at 75 mcg/kg/m, remains on Levophed the pain 8 mg per hour. He is scheduled to undergo tracheostomy and possibly PEG tube placement today. May not have a PEG tube because of his ileus. Intermittently the patient gets extremely agitated while on mechanical ventilation, but today with a higher dose of propofol he seems to be quite calm. Yesterday he was weaned down on propofol, and his mental status was assessed. He was able to follow all instructions. Chest x- ray is basically the same, no bench mover the last 1 week. Continues to show bilateral airspace disease mostly in the right lower lobe and interstitial infiltrates bilaterally. His labs were all reviewed, seem to be unremarkable. Reevaluated today on 04/28/2019, remains on mechanical ventilation, patient had his tracheostomy done yesterday, and the plan is to wake him up today, and hopefully give him a trial of pressure support and CPAP. I was able to evaluate the patient while the propofol was being tapered down, patient seems to be waking up, following extremely simple instructions, he is not quite ready to be placed on pressure support and CPAP at this point. His ventilator settings are tidal volume of 450 assist-control rate of 26 FiO2 40% PEEP of 5. Patient is off levo fed, he is off clevidipine, remains on TPN, propofol is presently at 15 mcg/kg/m. Patient is in normal sinus rhythm. Continues to have slight abdominal distention, and no bowel movements. Patient will eventually need workup for possible cecal mass once his clinical condition improved Reevaluated today on 04/29/2019, remains on mechanical ventilation, tracheostomy is intact, patient tolerated about one half hours of weaning on pressure support of 10 and CPAP. However after 2-1/2 hours, patient became extremely agitated, restless, tachycardic, hypertensive, hence he had to be rested back on assist control mode of mechanical ventilation. However we plan to hold propofol again today, and give him another trial today of pressure support and CPAP. Patient is on the same ventilator settings which are assist control rate of 26 FiO2 40% PEEP of 5, volume of 450. He is not requiring any pressors. Not requiring any clevidipine at this point. Propofol is being treated down and possibly will be placed on hold in the next hour. Again with plan to give the patient another trial of pressure support and CPAP today. Continues to have no bowel movements. And that being addressed by general surgery on the case.ABG today showed a pO2 of 72 pCO2 of 40 pH of 7.46. CBC is relatively normal basic metabolic profile is normal renal profile is normal. Chest x-ray is basically about the same, continues to showinterstitial infiltrates bilaterally.bilateral interstitial edema is not entirely ruled out, hence I plan to give the patient a higher dose of Lasix of 40 mg IV push every 8 hours and repeat chest x-ray in the next 24 hours. Objective - Vital Signs Vital signs: Vital Signs Temp 99.3 F 04/29/19 08:00 Pulse 81 04/29/19 10:00 Resp 19 04/29/19 10:00 BP 100/60 04/28/19 15:00 Pulse Ox 93 L 04/29/19 10:00 Intake & Output 04/28/19 04/29/19 04/29/19 18:59 06:59 18:59 Intake Total 2552.375 1796.334 360 Output Total 3185 2825 835 Balance -632.625 -1028.666 -475 Weight 103.4 kg Intake: IV 1381 1480 360 Mvi, Adult No.4 with Vit 504 504 168 K 10 ml Trace (Conc-1Ml/ Dose) 1 ml Potassium Chloride 20 meq In Amino Acid 5%-D15w+Lytes*E* 1, 000 ml @ 42 mls/hr IV . Q24H [facility] Rx#:[id number] Piperacillin-Tazobactam 3 100 200 .375 gm In Sodium Chloride 0.9% 100 ml @ 25 mls/hr IVPB Q8H ELA Rx#: [id number] Potassium Chloride 10 meq 100 In Water For Injection 1 100ml.bag @ 100 mls/hr IVPB Q1H ELA Rx#: [id number] Sodium Chloride 0.9% 1, 240 240 80 000 ml @ 20 mls/hr IV . Q24H ELA Rx#:[id number] Vancomycin 1,500 mg In 500 Sodium Chloride 0.9% 250 ml @ 125 mls/hr IVPB Q8H ELA Rx#:[id number] Vancomycin 1,750 mg In 501 Sodium Chloride 0.9% 500 ml 500 ml @ 167 mls/hr IVPB Q8H ELA Rx#: [id number] pressure bag 0.9 36 36 12 Intake, IV Titration 1171.375 316.334 Amount Mvi, Adult No.4 with Vit 1021 K 10 ml Trace (Conc-1Ml/ Dose) 1 ml Potassium Chloride 20 meq In Amino Acid 5%-D15w+Lytes*E* 1, 000 ml @ 42 mls/hr IV . Q24H ELA Rx#:[id number] Propofol 1,000 mg In 150.375 316.334 Empty Bag 1 bag @ Titrate IV .Q0M ELA Rx#: [id number] Output: Gastric Drainage 150 750 150 Urine 2835 2075 685 Oral Regurgitation 200 Other: Voiding Method Indwelling Catheter Indwelling Catheter ABP, PAP, CO, CI - Last Documented Arterial Blood Pressure 147/66 - Exam Physical Exam: Revealed a 69-year-old white male intubated, on propofol, arousable, follows very simple instructions Head: Atraumatic, normocephalic. Tracheostomy is intact. HEENT:[Neck is supple.] [No neck masses.] [No thyromegaly.] [No JVD.]PERRLA, EOMI, no icterus. Chest: [Crackles at the bases no rhonchi and no wheezes. Cardiac Exam: [Normal S1 and S2, no S3 gallop, no murmur.] Abdomen: [slightly distended, no tenderness, no rebound, no guarding, no bowel sounds. Extremities: [No clubbing, trace of bipedal edema, no cyanosis.] Neurological Exam: Arousable on a small dose of propofol, follows very simple instructions. Lymphatics: No lymphadenopathy. Psychiatric: Could not be addressed or assessed.] Skin: No rashes - Labs CBC & Chem 7: 04/29/19 05:41 04/29/19 05:41 Labs: Abnormal Lab Results - Last 24 Hours (Table) 04/28/19 04/28/19 04/28/19 Range/Units 12:20 18:22 23:48 RBC (4.30-5.90) m/uL Hgb (13.0-17.5) gm/dL Hct (39.0-53.0) % Neutrophils # (1.3-7.7) k/uL Lymphocytes # (1.0-4.8) k/uL ABG pH (7.35-7.45) ABG pO2 (83-108) mmHg ABG HCO3 (21-25) mmol/L ABG Total CO2 (19-24) mmol/L BUN (9-20) mg/dL Creatinine (0.66-1.25) mg/dL Glucose (74-99) mg/dL POC Glucose (mg/dL) 181 H 160 H 143 H (75-99) mg/dL 04/29/19 04/29/19 04/29/19 Range/Units 05:41 05:41 05:57 RBC 4.20 L (4.30-5.90) m/uL Hgb 12.4 L (13.0-17.5) gm/dL Hct 38.8 L (39.0-53.0) % Neutrophils # 7.9 H (1.3-7.7) k/uL Lymphocytes # 0.9 L (1.0-4.8) k/uL ABG pH (7.35-7.45) ABG pO2 (83-108) mmHg ABG HCO3 (21-25) mmol/L ABG Total CO2 (19-24) mmol/L BUN 31 H (9-20) mg/dL Creatinine 0.62 L (0.66-1.25) mg/dL Glucose 185 H (74-99) mg/dL POC Glucose (mg/dL) 175 H (75-99) mg/dL 04/29/19 Range/Units 06:42 RBC (4.30-5.90) m/uL Hgb (13.0-17.5) gm/dL Hct (39.0-53.0) % Neutrophils # (1.3-7.7) k/uL Lymphocytes # (1.0-4.8) k/uL ABG pH 7.46 H (7.35-7.45) ABG pO2 72 L (83-108) mmHg ABG HCO3 29 H (21-25) mmol/L ABG Total CO2 30 H (19-24) mmol/L BUN (9-20) mg/dL Creatinine (0.66-1.25) mg/dL Glucose (74-99) mg/dL POC Glucose (mg/dL) (75-99) mg/dL Assessment and Plan Assessment: impression: Acute hypoxic and hypercapnic respiratory failure secondary to bilateral pneumonia possibly aspiration related, and ARDS. acute colitis, possible cecal mass and abdominal distention, being followed by surgery.May eventually require barium enema. Hypertension, intermittently on clevidipine , presently off clevidipine History of alcoholism, required significant sedation to keep him calm, making weaning bit more difficult. Since the patient gets extremely agitated off propofol. Obstructive sleep apnea syndrome Abdominal pain with evidence of colitis or possible malignancy, colonoscopy was unsuccessful.may eventually require barium enema and that is being addressed by surgery. History of GERD remains on Protonix Type 2 diabetes. History of obstructive sleep apnea syndrome Status post tracheostomy on 04/27/2019 mostly because of failure to wean. Recommendation: continue nutritional support/TPN, continue ventilatory support, continue daily interruption of sedation and weaning trials with pressure support and CPAP, continue antibiotics, continue alcohol withdrawal protocol, continue GI and DVT prophylaxis, continue tracheostomy care, increase Lasix to 40 mg IV push every 8 hours, continue to monitor her chest x-ray daily and daily electrolytes. Continue to address his possible cecal mass, and that being addressed by surgery. May eventually require barium enema. Patient has been a failure to wean. We'll continue to follow. Critical care time is 36 minutes Time with Patient: Greater than 30
--- NOTE | 2019-04-29 11:54 | P.PN ---
Subjective Progress Note Date: 04/29/19 Acute respiratory failure, aspiration pneumonia, severe abdominal pain, possible malignancy in the cecum, possible colitis, delirium tremor, urgent hypertension, COPD This is a 69-year-old male patient of Dr. Gallardo with past medical history of hypertension, hyperlipidemia, COPD, gastroesophageal reflux disease, remote history of tobacco use, obstructive sleep apnea not using CPAP. Patient complains of sudden onset of abdominal pain starting on Tuesday. He also complains of bloating in the abdomen for the past couple months as well as weight loss of 5-10 pounds over the past 3 months. He complains of decreased appetite. He states he has had occasional burgundy stools. He denies any black stools, no diarrhea, no vomiting. He denies any urinary symptoms. Patient states he had his last colonoscopy in 2013 which was normal. Patient presents to [facility] emergency center for evaluation. Abdominal x-ray shows no acute findings. CAT scan of the abdomen and pelvis showed marked thickening of the cecum concerning for malignancy. A nonspecific colitis is not excluded but felt to be less likely. Thickening in the gastric rugae which may be secondary to under distention versus a nonspecific gastritis. EKG is a sinus tachycardia with right bundle branch block, left AFB. WBC 16.7, hemoglobin 14.7, creatinine 0.74. Troponin negative. Amylase and lipase, liver function tests all normal. Urinalysis was clear with 1+ protein. Patient was admitted to the [facility] floor, consult with Dr. Givens, IV fluids, pain medications and Zofran. Plan is for colonoscopy tomorrow. 04/17: Overnight, patient developed acute respiratory failure and was transferred to the intensive care unit and patient placed on BiPAP, currently under care of Dr. Caballero. Patient subsequently intubated and placed on mechanical ventilation. Echocardiogram from yesterday reveals EF 55-60% with moderate concentric left ventricle hypertrophy, trace mitral regurgitation, trace tricuspid regurgitation, no pulmonary hypertension. No pericardial effusion. Chest x-ray shows new right basilar and pneumonic consolidation with diminished inspiration background right hilar and left basilar more patchy edema and or infiltrate felt present. Repeat chest x-ray shows new endotracheal tube with placement described with recommendations to pullback. Mild cardiomegaly and low lung volumes with bilateral hilar edema and/or infiltrate and right basilar consolidation all redemonstrated increasing left basilar infiltrate felt present. Abdomen was more distended and NG tube was placed. Immediate surgical consultation was requested by Dr. Caballero. Dr. Givens attempted bedside colonoscopy but patient was not properly prepped. He is scheduled for CAT scan of the abdomen and pelvis this afternoon at 2:30. NG tube is in place with bile color returned. Family members are in the waiting room and have been updated. 04/18: The patient remains in intensive care unit intubated and on mechanical ventilation. Vent settings have been decreased and no plan for sedation holiday today. He was weaned off norepinephrine this morning. Urine output has been 50-75 mL per hour. Noted that the Goldberg tube is pink but urine is alesia most likely a drug reaction. Patient has had several bowel movements this morning. Antibiotics have been switched to Zosyn and vancomycin. TSH 0.224 with normal free T4 at 1.24. Surgical consultation has been changed to Dr. Garvey per family wishes. 04/19: Patient remains in intensive care unit intubated and on mechanical ventilation. Patient has had increased purulent secretions and underwent reintubation by Dr. Caballero. He also perform bronchoscopy at the bedside and suction 20 ML's purulent material specimen was sent to the lab for cytology and culture. He is concern for ARDS. Patient is continued on Zosyn and vancomycin. He has been off vasopressors since yesterday morning. Patient has had a small amount of liquid stool today much decreased from yesterday. Dr. Garvey is on for surgery at this point. Patient is having minimal output from NG tube. Bowel sounds remain hypoactive. Consult has been added for GI regarding concern for ischemic colitis. 04/20: Patient remains intubated and on mechanical ventilation. Repeat chest x- ray shows continued mild to moderate heart failure. Small to moderate effusions with prominent bibasilar atelectasis and/or consolidation persists. Dr. Garvye is planning for bedside colonoscopy today. Patient was ordered for soapsuds enema last night and this morning. Tube feedings on hold. He has been afebrile, heart rate in the 50s and 60s, blood pressure 141/66. Pulse ox 99%. WBC 8.1, hemoglobin 11.2. Creatinine 0.65. Bronchial washing cytology is pending. Bronchial cultures in progress. Patient will need to start tube feedings or TPN depending on results of colonoscopy scheduled for this afternoon. Patient was given 1 dose of IV Lasix this morning and is diuresing well. Family in the waiting room have been updated. 04/21: Patient remains in the bed, FiO2 40%, PEEP of 6, NG tube has been placed and had taken out the OG tube, fecaloid billous contents are observed in the NG tube, bowel sounds are very diminished today, no bowel movements over the past 24 hours, x-rays of the abdomen will be done to evaluate for progressive bowel obstruction, patient remains to be afebrile, no leukocytosis bronchial washing cultures shows no normal zander vital signs are stable no hypotensive events, patient is slightly hypotensive on IV Solu-Medrol 40 every 8 04/23: Patient remains intubated and on mechanical ventilation. Dr. Dunham does not plan for attempt at weaning today. He is started him on hydralazine for blood pressure control. Patient has been started on TPN. On Tuesday, patient underwent colonoscopy with Dr. Garvey that revealed reticulosis, tortuous colon a nd recommends once patient is off ventilation to have barium enema to evaluate the ileocecal valve. Keep NG tube post extubation and hold tube feedings for now. No bowel movement today. 04/24: Patient had a rough night became significantly hypertensive, tachypneic and tachycardic. Patient was started on labetalol drip once other options were attempted without success and this was weaned off this morning. Patient also was placed on Nimbex and fentanyl drip which are to be weaned off today. Chest x-ray shows worsening interstitial infiltrates bilaterally and possible interstitial edema. Dr. Dunham increase Lasix to 40 mg IV push every 12 hours. Patient has not had a bowel movement. He remains on TPN and NG tube to suction. Urine output is adequate, tea-colored. Discussed yesterday the possibility of needing a trach and PEG with family members. At this time, Dr. Dunham would like to hold off. 04/25: Patient is still sedated on mechanical ventilation he had failed his weaning parameter today I want to see him when the and the son were in the room door tachycardia with Dr. dao about further plan. Pulmonary and from medicine standpoint patient most likely will need to go to trach no PEG tube can be done for now expected the plan probably for Tuesday and from thereon if more stable can go for his barium enema to come with final diagnosis of the tumor or the finding in the cecum and the large intestine and from thereon further management can be planned. Patient still on multiple drips for pain management let pressure TPN and DT. 04/26: A Chin still on mechanical ventilation, sedated, he is slightly bit awaking when backing off on sedation is still very agitated between having quite bed elevated blood pressure and pulse rate did not succeed on weaning parameter and most likely he will need tracheostomy by tomorrow. PEG tube is negative be possible at this point because of the possibility of mass in the cecum with obstruction cankerous problem if he is more stable can go for barium enema and then PEG tube if there is no cecal mass likely his CEA came back negative. 04/27 patient examined bedside currently intubated D 10. Patient came in with abdominal pain, nausea, vomiting followed by a respiratory failure the next day leading to intubation. Patient is found to be agitated him on ventilator. Currently requiring 75 mics of propofol. On vital evaluation patient had a heart rate of 77 respiratory rate 26 blood pressure 159/62 on clear with pain d rip abdominal x-ray this morning shows nonspecific bowel pattern with the bilateral pleural effusion chest x-ray suggestive of pulmonary edema versus consolidation. Patient is currently on Lasix 40 mg IV twice a day and making good urine output 75 mL per hour. Blood cultures so far negative. Bronchoscopy results are negative so far. Plan for tracheostomy placement today. PEG tube is on hold until further information about the cecal mass/colitis. 04/28: Examined at bedside currently on CPAP. Patient was on a sedation holiday for approximately 1 hour sedation has been increased due to fatigue and agitation. Vital signs have been stable blood pressure 151/60 pulse ox a 97% on CPAP pulse rate 98. Patient was able to follow commands however weak. Patient was able to nod head and answer actions appropriately. Family at the bedside discussing plan of care. Continue nutritional support with TPN. 04/29: Patient examined bedside currently on CPAP tolerating. Patient is more alert today compared to yesterday. Patient is able to follow commands movements are weak and nods head appropriately to questions. Patient is on propofol at 10 at this time. She was on a sedation holiday however heart rate and blood pressure increase. Urinary output approximately 60-70 ML's per hour. Patient has not had a bowel movement continues with NG suction approximately 600-700 ML's output in 24 hours. Review of system could not be obtained Objective - Vital Signs Vital signs: Vital Signs Temp 99.3 F 04/29/19 08:00 Pulse 101 H 04/29/19 11:19 Resp 22 04/29/19 11:19 BP 100/60 04/28/19 15:00 Pulse Ox 93 L 04/29/19 11:00 Intake & Output 04/28/19 04/29/19 04/29/19 18:59 06:59 18:59 Intake Total 2552.375 1796.334 552.556 Output Total 3185 2825 995 Balance -632.625 -1028.666 -442.444 Weight 103.4 kg Intake: IV 1381 1480 475 Mvi, Adult No.4 with Vit 504 504 210 K 10 ml Trace (Conc-1Ml/ Dose) 1 ml Potassium Chloride 20 meq In Amino Acid 5%-D15w+Lytes*E* 1, 000 ml @ 42 mls/hr IV . Q24H [facility] Rx#:[id number] Piperacillin-Tazobactam 3 100 200 .375 gm In Sodium Chloride 0.9% 100 ml @ 25 mls/hr IVPB Q8H [facility] Rx#: [id number] Potassium Chloride 10 meq 150 In Water For Injection 1 100ml.bag @ 100 mls/hr IVPB Q1H [facility] Rx#: [id number] Sodium Chloride 0.9% 1, 240 240 100 000 ml @ 20 mls/hr IV . Q24H [facility] Rx#:[id number] Vancomycin 1,500 mg In 500 Sodium Chloride 0.9% 250 ml @ 125 mls/hr IVPB Q8H [facility] Rx#:[id number] Vancomycin 1,750 mg In 501 Sodium Chloride 0.9% 500 ml 500 ml @ 167 mls/hr IVPB Q8H [facility] Rx#: [id number] pressure bag 0.9 36 36 15 Intake, IV Titration 1171.375 316.334 77.556 Amount Mvi, Adult No.4 with Vit 1021 K 10 ml Trace (Conc-1Ml/ Dose) 1 ml Potassium Chloride 20 meq In Amino Acid 5%-D15w+Lytes*E* 1, 000 ml @ 42 mls/hr IV . Q24H [facility] Rx#:[id number] Propofol 1,000 mg In 150.375 316.334 77.556 Empty Bag 1 bag @ Titrate IV .Q0M [facility] Rx#: [id number] Output: Gastric Drainage 150 750 150 Urine 2835 2075 845 Oral Regurgitation 200 Other: Voiding Method Indwelling Catheter Indwelling Catheter ABP, PAP, CO, CI - Last Documented Arterial Blood Pressure 158/70 - Constitutional General appearance: Present: cooperative, mild distress, obese - EENT Eyes: Present: anicteric sclerae, PERRLA ENT: Present: hearing grossly normal - Neck Neck: Absent: lymphadenopathy, rigidity, stridor, thyromegaly - Respiratory Respiratory: bilateral: CTA, diminished - Cardiovascular Rhythm: regular Heart sounds: normal: S1, S2 Abnormal Heart Sounds: Absent: systolic murmur, diastolic murmur, rub, S3 Gallop, S4 Gallop, click, other - Gastrointestinal General gastrointestinal: Present: normal bowel sounds - Integumentary Integumentary: Present: decreased turgor - Neurologic Neurologic Comment(s): Able to follow commands 4 extremities - Musculoskeletal Musculoskeletal: Present: generalized weakness - Psychiatric Psychiatric Comment(s): Alert to self, frustrated to to inability to talk. - Labs CBC & Chem 7: 04/29/19 05:41 04/29/19 05:41 Labs: Abnormal Lab Results - Last 24 Hours (Table) 04/28/19 04/28/19 04/28/19 Range/Units 12:20 18:22 23:48 RBC (4.30-5.90) m/uL Hgb (13.0-17.5) gm/dL Hct (39.0-53.0) % Neutrophils # (1.3-7.7) k/uL Lymphocytes # (1.0-4.8) k/uL ABG pH (7.35-7.45) ABG pO2 (83-108) mmHg ABG HCO3 (21-25) mmol/L ABG Total CO2 (19-24) mmol/L BUN (9-20) mg/dL Creatinine (0.66-1.25) mg/dL Glucose (74-99) mg/dL POC Glucose (mg/dL) 181 H 160 H 143 H (75-99) mg/dL 04/29/19 04/29/19 04/29/19 Range/Units 05:41 05:41 05:57 RBC 4.20 L (4.30-5.90) m/uL Hgb 12.4 L (13.0-17.5) gm/dL Hct 38.8 L (39.0-53.0) % Neutrophils # 7.9 H (1.3-7.7) k/uL Lymphocytes # 0.9 L (1.0-4.8) k/uL ABG pH (7.35-7.45) ABG pO2 (83-108) mmHg ABG HCO3 (21-25) mmol/L ABG Total CO2 (19-24) mmol/L BUN 31 H (9-20) mg/dL Creatinine 0.62 L (0.66-1.25) mg/dL Glucose 185 H (74-99) mg/dL POC Glucose (mg/dL) 175 H (75-99) mg/dL 04/29/19 Range/Units 06:42 RBC (4.30-5.90) m/uL Hgb (13.0-17.5) gm/dL Hct (39.0-53.0) % Neutrophils # (1.3-7.7) k/uL Lymphocytes # (1.0-4.8) k/uL ABG pH 7.46 H (7.35-7.45) ABG pO2 72 L (83-108) mmHg ABG HCO3 29 H (21-25) mmol/L ABG Total CO2 30 H (19-24) mmol/L BUN (9-20) mg/dL Creatinine (0.66-1.25) mg/dL Glucose (74-99) mg/dL POC Glucose (mg/dL) (75-99) mg/dL Assessment and Plan Plan: 1. acute respiratory failure secondary to aspiration: Remain on mechanical sierra tilation, plan for tracheostomy today with history of COPD patient would have a possible longer term vent management. Continue updraft treatment continue to watch for any fluid overload. Continue with CPAP as tolerated 2. acute aspiration pneumonia: Remain on mechanical ventilation still on gram- negative coverage with Zosyn and vancomycin for now continue Solu-Medrol and updraft treatment. Repeat chest x-ray shows continuing changes of congestive heart failure 3. COPD: With mild exacerbation: Continue Solu-Medrol, continue O2 continue updraft treatment. 4. abdominal pain: With possible obstruction versus colitis versus malignancy in the cecum still seen Dr. garvey continue antibiotics barium study plan once patient is extubated or stable to be able to do the test. CEA was very low wh ich still not extremity confirmative for no cancer. Abdominal x-ray shows nonspecific abdomen. No dilated bowel loops. There seen in the rectum. Bilateral infiltrate and pleural effusion. 5. delirium tremor: Patient had severe problem with agitation require sedation and paralyzed to take care of his agitation continue propofol 6. urgent hypertension: Remain on IV Vasotec hydralazine and labetalol. On Clevidipine drip 7. obstructive sleep apnea was on CPAP patient is on mechanical ventilation currently. 8. possible septicemia and sepsis: Patient blood culture was positive for coag-negative staph remain on vancomycin and Zosyn currently.r epeat blood culture are neg 9. type 2 diabetes: On insulin currently including insulin drip if needed continue to watch blood sugar to keep it below 150. 10. GI prophylaxis/severe GERD on pantoprazole IV. 11. DVT prophylaxis: Patient remain on Lovenox. CODE STATUS: Full code. Impression and plan of care have been directed as dictated by the signing physician. Fabi Pisano nurse practitioner acting as scribe for signing physician.
[2019-04-29] MEDS: ENALAPRILAT 1.25 MG/ML 1 ML VIAL IVP PRN (12:40)
--- NOTE | 2019-04-29 12:40 | P.PN ---
Progress Note - Text Progress Note Date: 04/29/19 The patient remains on the ventilator. There been no acute changes overnight. On exam his abdomen soft. We'll continue supportive care. Patient will need a barium enema at some point when he is stable to to evaluate for possible cecal tumor.
[2019-04-29] MEDS: SODIUM CHLORIDE 0.9% 1,000 ML IV SCH (12:41)
[2019-04-29 12:44] LABS: Glucose,Whole Blood 160 mg/dL (75-99)
[2019-04-29] MEDS: MVI, ADULT NO.4 WITH VIT K 10 ML, TRACE (CONC-1ML/DOSE) 1 ML, POTASSIUM CHLORIDE 20 MEQ... IV SCH ×4 (18:54)
[2019-04-29 18:57] LABS: Glucose,Whole Blood 154 mg/dL (75-99)
[2019-04-29] MEDS: CISATRACURIUM 200 MG in SODIUM CHLORIDE 0.9% 180 ML IV SCH (20:09)
[2019-04-29] MEDS: hydrALAZINE HCL 20 MG/ML 1 ML VIAL IVP PRN (20:38)
[2019-04-29 23:44] LABS: Glucose,Whole Blood 179 mg/dL (75-99)
[2019-04-30] MEDS: FUROSEMIDE 10 MG/ML 4 ML VIAL IV SCH ×3 (00:50→16:35)
[2019-04-30] MEDS: ARTIFICIAL TEARS-HYPROMELLOSE DROPS 15 ML BTL BOTH EYES SCH ×6 (00:51→20:37)
[2019-04-30] MEDS: HYDROmorphone 1 MG/ML 1 ML SYRINGE IVP PRN ×2 (00:51→05:49)
[2019-04-30] MEDS: methylPREDNISolone SOD SUCCI 40 MG/ML 1 ML VIAL IV SCH (00:51)
[2019-04-30] MEDS: INSULIN ASPART (NovoLOG) 100 UNIT/ML VIAL SQ SCH ×4 (00:55→17:35)
[2019-04-30] MEDS: PROPOFOL 1,000 MG in EMPTY BAG 1 BAG IV SCH (01:07)
[2019-04-30] MEDS: IPRATROPIUM-ALBUTEROL 3 ML NEB INHALATION SCH ×6 (03:00→23:51)
[2019-04-30 04:24] LABS: ABG Base Excess 5.5 mmol/L; ABG HCO3 30 mmol/L (21-25); ABG Oxygen Saturation 96.6 % (94-97); ABG PCO2 42 mmHg (35-45); ABG PH 7.45 (7.35-7.45); ABG PO2 89 mmHg (83-108); ABG TCO2 31 mmol/L (19-24); Allen Test Performed? Yes
[2019-04-30] MEDS: VANCOMYCIN 1,500 MG in SODIUM CHLORIDE 0.9% 250 ML IVPB SCH (04:29)
[2019-04-30] MEDS: PIPERACILLIN-TAZOBACTAM 3.375 GM in SODIUM CHLORIDE 0.9% 100 ML IVPB SCH (04:29)
[2019-04-30 05:16] LABS: HCT 38.9 % (39.0-53.0); HGB 12.5 gm/dL (13.0-17.5); MCH 29.7 pg (25.0-35.0); MCHC 32.3 g/dL (31.0-37.0); MCV 92.2 fL (80.0-100.0); Mean Platelet Volume 7.2; Platelet Count 455 k/uL (150-450); RBC 4.22 m/uL (4.30-5.90); RDW 14.2 % (11.5-15.5); WBC 9.4 k/uL (3.8-10.6)
[2019-04-30 05:26] LABS: African American GFR (CKD) >90 (>60 ml/min/1.73 sqM); Anion Gap 12 mmol/L; Blood Urea Nitrogen 32 mg/dL (9-20); Carbon Dioxide 28 mmol/L (22-30); Chloride 103 mmol/L (98-107); Glucose 208 mg/dL (74-99); Potassium 3.6 mmol/L (3.5-5.1); Sodium 143 mmol/L (137-145)
[2019-04-30] MEDS ORDERED: Potassium Replacement Protocol 1 EACH MISC MISCELLANE PRN (05:31)
[2019-04-30 05:34] LABS: Glucose,Whole Blood 179 mg/dL (75-99)
[2019-04-30] MEDS: POTASSIUM CHLORIDE 10 MEQ in WATER FOR INJECTION 1 100ML.BAG IVPB SCH ×2 (05:54→08:09)
[2019-04-30] MEDS: BUDESONIDE 1 MG/2 ML NEBU INHALATION SCH (07:08)
[2019-04-30] MEDS: PANTOPRAZOLE 40 MG/10 ML VIAL IV SCH (09:07)
[2019-04-30] MEDS: CHLORHEXIDINE GLUCONATE 15 ML CUP MUCOUS MEM SCH ×2 (09:08→20:46)
[2019-04-30] MEDS: HEPARIN SODIUM,PORCINE 5,000 UNIT/ML 1 ML VIAL SQ SCH ×2 (09:08→20:46)
--- NOTE | 2019-04-30 09:41 | PN ---
PROGRESS NOTE PULMONARY/CRITICAL CARE PROGRESS NOTE: DATE OF SERVICE: April 30, 2019 This is a 69-year-old male who was admitted back on April 15 with an episode of colitis and abdominal pain. He apparently aspirated on April 17 and was intubated for respiratory failure. On April 27, he had a tracheostomy performed. He also had a colonoscopy performed on April 20. Yesterday, he spent about 12 hours on CPAP. He was seen by my partner yesterday with multiple diagnoses including acute hypoxemic and hypercapnic respiratory failure secondary to aspiration and acute respiratory distress syndrome, acute colitis with possible cecal mass and severe abdominal distention, benign essential hypertension, history of alcohol abuse, obstructive sleep apnea syndrome, abdominal pain and GERD, type 2 diabetes, sleep apnea syndrome, previous tracheostomy and failure to wean. Currently, the patient seems to be resting comfortably. He is on the volume assist- control mode with a rate of 26, tidal volume 450, FiO2 of 40%, PEEP of 5. The pO2 was 89, pCO2 of 42, pH 7.45. The patient is switched to PSV 5 and CPAP of 5. He is getting propofol at 20 mcg/kg per minute, which I asked the nurses to turn off, 0.9 at KVO and TPN at 42 mL an hour. He seemed relatively comfortable and did very well CPAP yesterday. PHYSICAL EXAMINATION: VITAL SIGNS: Current vital signs are reviewed. Temperature 98.4, heart rate 93, respiratory rate 17, blood pressure 122/79, mean 93, saturations are 94% on 40%, PSV 5, CPAP of 5. HEENT: Examination is grossly unremarkable. NECK: Supple. Full range of motion. Midline tracheostomy. CARDIOVASCULAR: Examination reveals regular rhythm and rate. Heart rate 93. S1, S2 normal. No murmur. LUNGS: Reveal coarse rhonchi. Breath sounds are diminished. A few scattered crackles. No wheezes. Breath sounds equal. ABDOMEN: Soft, but slightly distended. Bowel sounds are not noted. EXTREMITIES: Are intact. No cyanosis, clubbing, or edema. SKIN: Without rash. NEUROLOGIC: Examination seems to be relatively normal. He is alert. He does move all 4 extremities. MICROBIOLOGIC STUDIES: Microbiologic studies were positive for Coag-negative staph back on April 17. Subsequent to that and even before that, everything else was negative. X-RAY: A chest x-ray was done this morning. It shows diffuse bilateral infiltrates. He has got significant infiltrative disease in the right lower lobe and also the left lower lobe. There is likely also some basilar atelectasis, small effusions. Tracheostomy tube is noted. LAB DATA: Lab data is reviewed. White count 9.4, hemoglobin 12.5, hematocrit 38.9, platelet count 455,000. Sodium 143, potassium 3.6, chloride 103, CO2 of 28. Anion gap is 12. BUN and creatinine were 32 and 0.64. MEDICATIONS: Medications are reviewed. The patient getting TPN, Artificial Tears, Pulmicort, chlorhexidine, Vasotec p.r.n., Lasix, heparin, hydralazine p.r.n., [place], insulin, updrafts, Solu-Medrol, morphine, Narcan, Zofran, Protonix, Zosyn and propofol. ASSESSMENT: 1. Acute hypoxemic and hypercapnic respiratory failure secondary to bilateral aspiration pneumonia as well as acute respiratory distress syndrome, improved. 2. Status post tracheostomy on April 27, for failure to wean. 3. Acute colitis with possible cecal mass and abdominal distention. 4. Hypertension, with better control. 5. History of alcoholism. 6. Sleep apnea syndrome. 7. Abdominal pain, secondary to colitis and/or possible malignancy, status post colonoscopy on April 20. 8. History of gastroesophageal reflux disease. 9. Type 2 diabetes. 10.Sleep apnea syndrome. PLAN: The patient was placed back on PSV 5, CPAP of 5. Today. Medications will be reviewed. Unnecessary medications will be discontinued. His overall prognosis remains very guarded. He is status post tracheostomy on April 27. He did have a colonoscopy on April 20. His labs, x-rays, medications and problem list are all reviewed. He is currently getting a daily interruption of sedation. Prognosis is guarded. We will continue to follow. CRITICAL CARE TIME: 35 minutes. MMODL / CYNTHIAN: [id number] /
--- NOTE | 2019-04-30 10:07 | XR ---
EXAMINATION TYPE: XR chest 1V portable DATE OF EXAM: 04/30/2019 COMPARISON: Chest x-ray 04/29/2019 HISTORY: Shortness of breath TECHNIQUE: Single frontal view of the chest is obtained. FINDINGS: Orogastric tube, left subclavian central venous catheter, tracheostomy tube are stable. Pa tchy bibasilar density persists. There is interval improved visualization of a portion of the right h emidiaphragm. No pneumothorax. Heart size is stable. IMPRESSION: There is some improved aeration.
[2019-04-30] MEDS ORDERED: VANCOMYCIN TROUGH DUE 1 EACH MISC MISCELLANE ONE (11:00)
[2019-04-30 11:58] LABS: Glucose,Whole Blood 149 mg/dL (75-99)
--- NOTE | 2019-04-30 12:34 | P.PN ---
<JaimesGabriela Himanshu - Last Filed: 04/30/19 12:29> Subjective Progress Note Date: 04/30/19 CHIEF COMPLAINT: Abdominal pain HISTORY OF PRESENT ILLNESS: Patient remains on mechanical ventilation in the ICU. S/P trach on 04/27/2019. No family at bedside. He remains on sedation. TPN is infusing. NG to LIS with approximately 1000cc bilious output in cannister. PHYSICAL EXAM: VITAL SIGNS: Reviewed. GENERAL: Kknb-iavalvqmg-gtbjubt on mechanical ventilation HEENT: NG to LIS. No sclera icterus. Extraocular movements grossly intact. Moist buccal mucosa. Head is atraumatic, normocephalic. ABDOMEN: Obese. Soft. Unable to assess pain upon palpation secondary to sedation and intubation NEUROLOGIC: Patient sedated on mechanical ventilation ASSESSMENT: 1. Abdominal pain 2. Marked wall thickening of cecum, possible malignancy versus nonspecific colitis PLAN: Ventilator management per Dr. Joy Continue NG to LIS Continue TPN Will require barium enema in the future to evaluate for possible cecal mass Nurse practitioner note has been reviewed by physician. Signing provider agrees with the documented findings, assessment, and plan of care. Objective - Vital Signs Vital signs: Vital Signs Temp 98.1 F 04/30/19 12:00 Pulse 88 04/30/19 12:00 Resp 21 04/30/19 12:00 BP 135/89 04/30/19 09:30 Pulse Ox 96 04/30/19 12:00 Intake & Output 04/29/19 04/30/19 04/30/19 18:59 06:59 18:59 Intake Total 7709.394 6623.543 168 Output Total 2640 1670 1945 Balance -1191.203 -355.457 -1777 Weight 99.3 kg 99.3 kg Intake: IV 1355 1143 168 Mvi, Adult No.4 with Vit 504 42 K 10 ml Trace (Conc-1Ml/ Dose) 1 ml Potassium Chloride 20 meq In Amino Acid 5%-D15w+Lytes*E* 1, 000 ml @ 42 mls/hr IV . Q24H ELA Rx#:[id number] Piperacillin-Tazobactam 3 125 200 .375 gm In Sodium Chloride 0.9% 100 ml @ 25 mls/hr IVPB Q8H ELA Rx#: [id number] Potassium Chloride 10 meq 200 100 In Water For Injection 1 100ml.bag @ 100 mls/hr IVPB Q1H ELA Rx#: [id number] Sodium Chloride 0.9% 1, 240 240 50 000 ml @ 20 mls/hr IV . Q24H ELA Rx#:[id number] Vancomycin 1,500 mg In 250 625 Sodium Chloride 0.9% 250 ml @ 125 mls/hr IVPB Q8H ELA Rx#:[id number] pressure bag 0.9 36 36 18 Intake, IV Titration 93.797 171.543 Amount Propofol 1,000 mg In 93.797 171.543 Empty Bag 1 bag @ Titrate IV .Q0M ELA Rx#: [id number] Output: Gastric Drainage 600 850 Urine 2040 1670 1095 Other: Voiding Method Indwelling Catheter Indwelling Catheter Indwelling Catheter ABP, PAP, CO, CI - Last Documented Arterial Blood Pressure 102/91 - Labs CBC & Chem 7: 04/30/19 04:20 04/30/19 04:20 Labs: Abnormal Lab Results - Last 24 Hours (Table) 04/29/19 04/29/19 04/29/19 Range/Units 12:33 18:46 23:33 RBC (4.30-5.90) m/uL Hgb (13.0-17.5) gm/dL Hct (39.0-53.0) % Plt Count (150-450) k/uL ABG HCO3 (21-25) mmol/L ABG Total CO2 (19-24) mmol/L BUN (9-20) mg/dL Creatinine (0.66-1.25) mg/dL Glucose (74-99) mg/dL POC Glucose (mg/dL) 160 H 154 H 179 H (75-99) mg/dL 04/30/19 04/30/19 04/30/19 Range/Units 04:20 04:20 04:21 RBC 4.22 L (4.30-5.90) m/uL Hgb 12.5 L (13.0-17.5) gm/dL Hct 38.9 L (39.0-53.0) % Plt Count 455 H (150-450) k/uL ABG HCO3 30 H (21-25) mmol/L ABG Total CO2 31 H (19-24) mmol/L BUN 32 H (9-20) mg/dL Creatinine 0.64 L (0.66-1.25) mg/dL Glucose 208 H (74-99) mg/dL POC Glucose (mg/dL) (75-99) mg/dL 04/30/19 04/30/19 Range/Units 05:22 11:46 RBC (4.30-5.90) m/uL Hgb (13.0-17.5) gm/dL Hct (39.0-53.0) % Plt Count (150-450) k/uL ABG HCO3 (21-25) mmol/L ABG Total CO2 (19-24) mmol/L BUN (9-20) mg/dL Creatinine (0.66-1.25) mg/dL Glucose (74-99) mg/dL POC Glucose (mg/dL) 179 H 149 H (75-99) mg/dL <Azam Aranda - Last Filed: 04/30/19 16:10> Subjective As above. Patient remains on the ventilator. Denies pain currently. Tracheostomy site without bleeding or evidence of infection. Abdomen remains soft with minimal distention. Continue weaning trials. Continue TPN. Objective - Vital Signs Vital signs: Vital Signs Temp 98.1 F 04/30/19 12:00 Pulse 77 04/30/19 15:28 Resp 20 04/30/19 15:28 BP 127/84 04/30/19 14:30 Pulse Ox 95 04/30/19 15:00 Intake & Output 04/29/19 04/30/19 04/30/19 18:59 06:59 18:59 Intake Total 2432.266 3196.543 207 Output Total 2640 1670 2130 Balance -1191.203 -355.457 -1923 Weight 99.3 kg 99.3 kg Intake: IV 1355 1143 207 Mvi, Adult No.4 with Vit 504 42 K 10 ml Trace (Conc-1Ml/ Dose) 1 ml Potassium Chloride 20 meq In Amino Acid 5%-D15w+Lytes*E* 1, 000 ml @ 42 mls/hr IV . Q24H ELA Rx#:[id number] Piperacillin-Tazobactam 3 125 200 .375 gm In Sodium Chloride 0.9% 100 ml @ 25 mls/hr IVPB Q8H ELA Rx#: [id number] Potassium Chloride 10 meq 200 100 In Water For Injection 1 100ml.bag @ 100 mls/hr IVPB Q1H ELA Rx#: [id number] Sodium Chloride 0.9% 1, 240 240 80 000 ml @ 20 mls/hr IV . Q24H ELA Rx#:[id number] Vancomycin 1,500 mg In 250 625 Sodium Chloride 0.9% 250 ml @ 125 mls/hr IVPB Q8H ELA Rx#:[id number] pressure bag 0.9 36 36 27 Intake, IV Titration 93.797 171.543 Amount Propofol 1,000 mg In 93.797 171.543 Empty Bag 1 bag @ Titrate IV .Q0M ELA Rx#: [id number] Output: Gastric Drainage 600 850 Urine 2040 1670 1280 Other: Voiding Method Indwelling Catheter Indwelling Catheter Indwelling Catheter ABP, PAP, CO, CI - Last Documented Arterial Blood Pressure 144/70 - Labs CBC & Chem 7: 04/30/19 04:20 04/30/19 04:20 Labs: Abnormal Lab Results - Last 24 Hours (Table) 04/29/19 04/29/19 04/30/19 Range/Units 18:46 23:33 04:20 RBC 4.22 L (4.30-5.90) m/uL Hgb 12.5 L (13.0-17.5) gm/dL Hct 38.9 L (39.0-53.0) % Plt Count 455 H (150-450) k/uL ABG HCO3 (21-25) mmol/L ABG Total CO2 (19-24) mmol/L BUN (9-20) mg/dL Creatinine (0.66-1.25) mg/dL Glucose (74-99) mg/dL POC Glucose (mg/dL) 154 H 179 H (75-99) mg/dL 04/30/19 04/30/19 04/30/19 Range/Units 04:20 04:21 05:22 RBC (4.30-5.90) m/uL Hgb (13.0-17.5) gm/dL Hct (39.0-53.0) % Plt Count (150-450) k/uL ABG HCO3 30 H (21-25) mmol/L ABG Total CO2 31 H (19-24) mmol/L BUN 32 H (9-20) mg/dL Creatinine 0.64 L (0.66-1.25) mg/dL Glucose 208 H (74-99) mg/dL POC Glucose (mg/dL) 179 H (75-99) mg/dL 04/30/19 Range/Units 11:46 RBC (4.30-5.90) m/uL Hgb (13.0-17.5) gm/dL Hct (39.0-53.0) % Plt Count (150-450) k/uL ABG HCO3 (21-25) mmol/L ABG Total CO2 (19-24) mmol/L BUN (9-20) mg/dL Creatinine (0.66-1.25) mg/dL Glucose (74-99) mg/dL POC Glucose (mg/dL) 149 H (75-99) mg/dL Microbiology - Last 24 Hours (Table) 04/19/19 09:28 Fungal Culture - Preliminary Bronchoalviolar Lavage - Left Assessment and Plan (1) Colitis Current Visit: Yes Status: Acute Code(s): K52.9 - NONINFECTIVE GASTROENTERITIS AND COLITIS, UNSPECIFIED SNOMED Code(s): 35006598
--- NOTE | 2019-04-30 12:53 | P.PN ---
Subjective Progress Note Date: 04/30/19 Acute respiratory failure, aspiration pneumonia, severe abdominal pain, possible malignancy in the cecum, possible colitis, delirium tremor, urgent hypertension, COPD This is a 69-year-old male patient of Dr. Gallardo with past medical history of hypertension, hyperlipidemia, COPD, gastroesophageal reflux disease, remote history of tobacco use, obstructive sleep apnea not using CPAP. Patient complains of sudden onset of abdominal pain starting on Tuesday. He also complains of bloating in the abdomen for the past couple months as well as weight loss of 5-10 pounds over the past 3 months. He complains of decreased appetite. He states he has had occasional burgundy stools. He denies any black stools, no diarrhea, no vomiting. He denies any urinary symptoms. Patient states he had his last colonoscopy in 2013 which was normal. Patient presents to [facility] emergency center for evaluation. Abdominal x-ray shows no acute findings. CAT scan of the abdomen and pelvis showed marked thickening of the cecum concerning for malignancy. A nonspecific colitis is not excluded but felt to be less likely. Thickening in the gastric rugae which may be secondary to under distention versus a nonspecific gastritis. EKG is a sinus tachycardia with right bundle branch block, left AFB. WBC 16.7, hemoglobin 14.7, creatinine 0.74. Troponin negative. Amylase and lipase, liver function tests all normal. Urinalysis was clear with 1+ protein. Patient was admitted to the [facility] floor, consult with Dr. Givens, IV fluids, pain medications and Zofran. Plan is for colonoscopy tomorrow. 04/17: Overnight, patient developed acute respiratory failure and was transferred to the intensive care unit and patient placed on BiPAP, currently under care of Dr. Caballero. Patient subsequently intubated and placed on mechanical ventilation. Echocardiogram from yesterday reveals EF 55-60% with moderate concentric left ventricle hypertrophy, trace mitral regurgitation, trace tricuspid regurgitation, no pulmonary hypertension. No pericardial effusion. Chest x-ray shows new right basilar and pneumonic consolidation with diminished inspiration background right hilar and left basilar more patchy edema and or infiltrate felt present. Repeat chest x-ray shows new endotracheal tube with placement described with recommendations to pullback. Mild cardiomegaly and low lung volumes with bilateral hilar edema and/or infiltrate and right basilar consolidation all redemonstrated increasing left basilar infiltrate felt present. Abdomen was more distended and NG tube was placed. Immediate surgical consultation was requested by Dr. Caballero. Dr. Givens attempted bedside colonoscopy but patient was not properly prepped. He is scheduled for CAT scan of the abdomen and pelvis this afternoon at 2:30. NG tube is in place with bile color returned. Family members are in the waiting room and have been updated. 04/18: The patient remains in intensive care unit intubated and on mechanical ventilation. Vent settings have been decreased and no plan for sedation holiday today. He was weaned off norepinephrine this morning. Urine output has been 50-75 mL per hour. Noted that the Goldberg tube is pink but urine is alesia most likely a drug reaction. Patient has had several bowel movements this morning. Antibiotics have been switched to Zosyn and vancomycin. TSH 0.224 with normal free T4 at 1.24. Surgical consultation has been changed to Dr. Garvey per family wishes. 04/19: Patient remains in intensive care unit intubated and on mechanical ventilation. Patient has had increased purulent secretions and underwent reintubation by Dr. Caballero. He also perform bronchoscopy at the bedside and suction 20 ML's purulent material specimen was sent to the lab for cytology and culture. He is concern for ARDS. Patient is continued on Zosyn and vancomycin. He has been off vasopressors since yesterday morning. Patient has had a small amount of liquid stool today much decreased from yesterday. Dr. Garvey is on for surgery at this point. Patient is having minimal output from NG tube. Bowel sounds remain hypoactive. Consult has been added for GI regarding concern for ischemic colitis. 04/20: Patient remains intubated and on mechanical ventilation. Repeat chest x- ray shows continued mild to moderate heart failure. Small to moderate effusions with prominent bibasilar atelectasis and/or consolidation persists. Dr. Garvey is planning for bedside colonoscopy today. Patient was ordered for soapsuds enema last night and this morning. Tube feedings on hold. He has been afebrile, heart rate in the 50s and 60s, blood pressure 141/66. Pulse ox 99%. WBC 8.1, hemoglobin 11.2. Creatinine 0.65. Bronchial washing cytology is pending. Bronchial cultures in progress. Patient will need to start tube feedings or TPN depending on results of colonoscopy scheduled for this afternoon. Patient was given 1 dose of IV Lasix this morning and is diuresing well. Family in the waiting room have been updated. 04/21: Patient remains in the bed, FiO2 40%, PEEP of 6, NG tube has been placed and had taken out the OG tube, fecaloid billous contents are observed in the NG tube, bowel sounds are very diminished today, no bowel movements over the past 24 hours, x-rays of the abdomen will be done to evaluate for progressive bowel obstruction, patient remains to be afebrile, no leukocytosis bronchial washing cultures shows no normal zander vital signs are stable no hypotensive events, patient is slightly hypotensive on IV Solu-Medrol 40 every 8 04/23: Patient remains intubated and on mechanical ventilation. Dr. Dunham does not plan for attempt at weaning today. He is started him on hydralazine for blood pressure control. Patient has been started on TPN. On Tuesday, patient underwent colonoscopy with Dr. Garvey that revealed reticulosis, tortuous colon a nd recommends once patient is off ventilation to have barium enema to evaluate the ileocecal valve. Keep NG tube post extubation and hold tube feedings for now. No bowel movement today. 04/24: Patient had a rough night became significantly hypertensive, tachypneic and tachycardic. Patient was started on labetalol drip once other options were attempted without success and this was weaned off this morning. Patient also was placed on Nimbex and fentanyl drip which are to be weaned off today. Chest x-ray shows worsening interstitial infiltrates bilaterally and possible interstitial edema. Dr. Dunham increase Lasix to 40 mg IV push every 12 hours. Patient has not had a bowel movement. He remains on TPN and NG tube to suction. Urine output is adequate, tea-colored. Discussed yesterday the possibility of needing a trach and PEG with family members. At this time, Dr. Dunham would like to hold off. 04/25: Patient is still sedated on mechanical ventilation he had failed his weaning parameter today I want to see him when the and the son were in the room door tachycardia with Dr. dao about further plan. Pulmonary and from medicine standpoint patient most likely will need to go to trach no PEG tube can be done for now expected the plan probably for Tuesday and from thereon if more stable can go for his barium enema to come with final diagnosis of the tumor or the finding in the cecum and the large intestine and from thereon further management can be planned. Patient still on multiple drips for pain management let pressure TPN and DT. 04/26: A Chin still on mechanical ventilation, sedated, he is slightly bit awaking when backing off on sedation is still very agitated between having quite bed elevated blood pressure and pulse rate did not succeed on weaning parameter and most likely he will need tracheostomy by tomorrow. PEG tube is negative be possible at this point because of the possibility of mass in the cecum with obstruction cankerous problem if he is more stable can go for barium enema and then PEG tube if there is no cecal mass likely his CEA came back negative. 04/27 patient examined bedside currently intubated D 10. Patient came in with abdominal pain, nausea, vomiting followed by a respiratory failure the next day leading to intubation. Patient is found to be agitated him on ventilator. Currently requiring 75 mics of propofol. On vital evaluation patient had a heart rate of 77 respiratory rate 26 blood pressure 159/62 on clear with pain d rip abdominal x-ray this morning shows nonspecific bowel pattern with the bilateral pleural effusion chest x-ray suggestive of pulmonary edema versus consolidation. Patient is currently on Lasix 40 mg IV twice a day and making good urine output 75 mL per hour. Blood cultures so far negative. Bronchoscopy results are negative so far. Plan for tracheostomy placement today. PEG tube is on hold until further information about the cecal mass/colitis. 04/28: Examined at bedside currently on CPAP. Patient was on a sedation holiday for approximately 1 hour sedation has been increased due to fatigue and agitation. Vital signs have been stable blood pressure 151/60 pulse ox a 97% on CPAP pulse rate 98. Patient was able to follow commands however weak. Patient was able to nod head and answer actions appropriately. Family at the bedside discussing plan of care. Continue nutritional support with TPN. 04/29: Patient examined bedside currently on CPAP tolerating. Patient is more alert today compared to yesterday. Patient is able to follow commands movements are weak and nods head appropriately to questions. Patient is on propofol at 10 at this time. She was on a sedation holiday however heart rate and blood pressure increase. Urinary output approximately 60-70 ML's per hour. Patient has not had a bowel movement continues with NG suction approximately 600-700 ML's output in 24 hours. 04/30: Patient is sitting up in bed does appear in less distress today he continues to have the trach in place we're trying to the patient on the ventilator hopefully he will be on trach collar tomorrow morning, family were at the bedside and updated about his situation he will be weaned off sedation completely liver on today he does not appear to be in acute distress at this time, we will hold off transfer the patient until after he weaned off. Objective - Vital Signs Vital signs: Vital Signs Temp 98.4 F 04/30/19 08:00 Pulse 93 04/30/19 08:00 Resp 17 04/30/19 08:00 BP 122/79 04/30/19 08:00 Pulse Ox 94 L 04/30/19 08:00 Intake & Output 04/29/19 04/30/19 04/30/19 18:59 06:59 18:59 Intake Total 3596.791 8772.543 126 Output Total 2640 1670 105 Balance -1191.203 -355.457 21 Weight 99.3 kg Intake: IV 1355 1143 126 Mvi, Adult No.4 with Vit 504 42 K 10 ml Trace (Conc-1Ml/ Dose) 1 ml Potassium Chloride 20 meq In Amino Acid 5%-D15w+Lytes*E* 1, 000 ml @ 42 mls/hr IV . Q24H ELA Rx#:[id number] Piperacillin-Tazobactam 3 125 200 .375 gm In Sodium Chloride 0.9% 100 ml @ 25 mls/hr IVPB Q8H ELA Rx#: [id number] Potassium Chloride 10 meq 200 100 In Water For Injection 1 100ml.bag @ 100 mls/hr IVPB Q1H ELA Rx#: [id number] Sodium Chloride 0.9% 1, 240 240 20 000 ml @ 20 mls/hr IV . Q24H ELA Rx#:[id number] Vancomycin 1,500 mg In 250 625 Sodium Chloride 0.9% 250 ml @ 125 mls/hr IVPB Q8H ELA Rx#:[id number] pressure bag 0.9 36 36 6 Intake, IV Titration 93.797 171.543 Amount Propofol 1,000 mg In 93.797 171.543 Empty Bag 1 bag @ Titrate IV .Q0M ELA Rx#: [id number] Output: Gastric Drainage 600 Urine 2040 1670 105 Other: Voiding Method Indwelling Catheter Indwelling Catheter ABP, PAP, CO, CI - Last Documented Arterial Blood Pressure 155/68 - Exam Neck HEENT: trach in with no lymph node enlargement no bruits.. Lungs: Decreased breath some bilateral rhonchi positive mild expiratory wheezes. Chest Wall: Decrease expansion with deep inspiration no tenderness and no deformity was found on exam, no costochondral pain or discomfort. Heart: Regular rate and rhythm, S1, S2, positive S3 positive tachycardia., no murmur, rub or gallop. Back: Symmetric, no curvature, ROM normal, no CVA tenderness. Abdomen: Soft distended positive bowel sound not able to feel any organomegaly no rebound or rigidity. Extremities: Extremities normal, atraumatic, no cyanosis or edema. Pulses: 2+ and symmetric. Skin: Skin color, texture, tugor normal, no rashes or lesions. Neurologic: awake , drowzy follow simple commands, extremely weak. - Labs CBC & Chem 7: 04/30/19 04:20 04/30/19 04:20 Labs: Abnormal Lab Results - Last 24 Hours (Table) 04/29/19 04/29/19 04/29/19 Range/Units 12:33 18:46 23:33 RBC (4.30-5.90) m/uL Hgb (13.0-17.5) gm/dL Hct (39.0-53.0) % Plt Count (150-450) k/uL ABG HCO3 (21-25) mmol/L ABG Total CO2 (19-24) mmol/L BUN (9-20) mg/dL Creatinine (0.66-1.25) mg/dL Glucose (74-99) mg/dL POC Glucose (mg/dL) 160 H 154 H 179 H (75-99) mg/dL 04/30/19 04/30/19 04/30/19 Range/Units 04:20 04:20 04:21 RBC 4.22 L (4.30-5.90) m/uL Hgb 12.5 L (13.0-17.5) gm/dL Hct 38.9 L (39.0-53.0) % Plt Count 455 H (150-450) k/uL ABG HCO3 30 H (21-25) mmol/L ABG Total CO2 31 H (19-24) mmol/L BUN 32 H (9-20) mg/dL Creatinine 0.64 L (0.66-1.25) mg/dL Glucose 208 H (74-99) mg/dL POC Glucose (mg/dL) (75-99) mg/dL 04/30/19 Range/Units 05:22 RBC (4.30-5.90) m/uL Hgb (13.0-17.5) gm/dL Hct (39.0-53.0) % Plt Count (150-450) k/uL ABG HCO3 (21-25) mmol/L ABG Total CO2 (19-24) mmol/L BUN (9-20) mg/dL Creatinine (0.66-1.25) mg/dL Glucose (74-99) mg/dL POC Glucose (mg/dL) 179 H (75-99) mg/dL Assessment and Plan Assessment: Assessment and Plan Plan: 1. acute respiratory failure secondary to aspiration pneumonia post Trach , currenty on CPAP we will continue with aggresive pulmonary toiletting and wean off Prpofol completely, and will continue to monitor. 2. acute aspiration pneumonia: Remain on mechanical ventilation still on gram- negative coverage with Zosyn and vancomycin for now continue Solu-Medrol and updraft treatment. Repeat chest x-ray shows continuing changes of congestive heart failure 3. COPD: With mild exacerbation: Continue Solu-Medrol, continue O2 continue updraft treatment. 4. abdominal pain: With possible obstruction versus colitis versus malignancy in the cecum still seen Dr. garvey continue antibiotics barium study plan once patient is extubated or stable to be able to do the test. CEA was very low which still not extremity confirmative for no cancer. Abdominal x-ray shows nonspecific abdomen. No dilated bowel loops. There seen in the rectum. Bilateral infiltrate and pleural effusion. 5. delirium tremor: Patient had severe problem with agitation require sedation and paralyzed to take care of his agitation continue propofol 6. urgent hypertension: Remain on IV Vasotec hydralazine and labetalol. On Clevidipine drip 7. obstructive sleep apnea was on CPAP patient is on mechanical ventilation currently. 8. possible septicemia and sepsis: Patient blood culture was positive for coag- negative staph remain on vancomycin and Zosyn currently.r epeat blood culture are neg 9. type 2 diabetes: On insulin currently including insulin drip if needed continue to watch blood sugar to keep it below 150. 10. GI prophylaxis/severe GERD on pantoprazole IV. 11. DVT prophylaxis: Patient remain on Lovenox. CODE STATUS: Full code.
[2019-04-30] MEDS: SODIUM CHLORIDE 0.9% 1,000 ML IV SCH (16:39)
[2019-04-30 17:27] LABS: Glucose,Whole Blood 154 mg/dL (75-99)
[2019-04-30 18:08] LABS: Glucose,Whole Blood 154 mg/dL (75-99)
[2019-04-30] MEDS: 1: MVI, ADULT NO.4 WITH VIT K 10 ML, TRACE (CONC-1ML/DOSE) 1 ML in AMINO ACID 5%-D15W+LY IV SCH ×3 (18:41)
[2019-04-30] MEDS: FAT EMULSION 20% 250 ML in EMPTY BAG 1 BAG IV SCH (18:41)
[2019-04-30] MEDS ORDERED: [UNRECOGNIZED DRUG - REMARK] IV SCH ×4 (19:00)
[2019-04-30 23:59] LABS: Glucose,Whole Blood 169 mg/dL (75-99)
[2019-05-01] MEDS: INSULIN ASPART (NovoLOG) 100 UNIT/ML VIAL SQ SCH ×5 (00:55→23:05)
[2019-05-01] MEDS: FUROSEMIDE 10 MG/ML 4 ML VIAL IV SCH ×4 (00:58→23:02)
[2019-05-01] MEDS: ARTIFICIAL TEARS-HYPROMELLOSE DROPS 15 ML BTL BOTH EYES SCH ×5 (01:03→16:58)
[2019-05-01] MEDS: HYDROmorphone 1 MG/ML 1 ML SYRINGE IVP PRN (03:00)
[2019-05-01] MEDS: IPRATROPIUM-ALBUTEROL 3 ML NEB INHALATION SCH ×5 (03:09→19:53)
[2019-05-01 04:51] LABS: ABG Base Excess 7.8 mmol/L; ABG HCO3 32 mmol/L (21-25); ABG Oxygen Saturation 96.8 % (94-97); ABG PCO2 44 mmHg (35-45); ABG PH 7.46 (7.35-7.45); ABG PO2 89 mmHg (83-108); ABG TCO2 33 mmol/L (19-24)
--- NOTE | 2019-05-01 04:55 | XR ---
EXAM: XR Chest, 1 View CLINICAL HISTORY: SOB TECHNIQUE: Frontal view of the chest. COMPARISON: 04/30/19 539 hours FINDINGS: Lungs: Slight improvement in aeration lungs compared to the prior study. There is no change in tracheostomy tube or left sided catheter. Gastric tube is below the diaphragm appears to be in the mid to distal stomach Pleural space: Unremarkable. No pneumothorax. Heart: Unremarkable. No cardiomegaly. Mediastinum: Unremarkable. Bones/joints: Unremarkable. IMPRESSION: Slight improvement aeration of lungs compared to prior study. No change in tubes or lines identified <MYCVCSECTION> Critical Value Communications 05/01/19 05:00 Call Nurse Called NIKO Layton in ICU on 05/01 04:59 (-04:00)
[2019-05-01 05:03] LABS: HCT 42.1 % (39.0-53.0); HGB 13.6 gm/dL (13.0-17.5); MCHC 32.3 g/dL (31.0-37.0); MCV 92.7 fL (80.0-100.0); Mean Platelet Volume 6.7; Platelet Count 493 k/uL (150-450); RBC 4.54 m/uL (4.30-5.90); RDW 13.3 % (11.5-15.5); WBC 11.2 k/uL (3.8-10.6)
[2019-05-01 05:08] LABS: Ionized Calcium 5.5 mg/dL (4.5-5.3)
[2019-05-01 05:18] LABS: African American GFR (CKD) >90 (>60 ml/min/1.73 sqM); Anion Gap 12 mmol/L; Blood Urea Nitrogen 36 mg/dL (9-20); Calcium 10.5 mg/dL (8.4-10.2); Carbon Dioxide 29 mmol/L (22-30); Chloride 103 mmol/L (98-107); Glucose 185 mg/dL (74-99); Magnesium 2.1 mg/dL (1.6-2.3); Phosphorus 4.3 mg/dL (2.5-4.5); Potassium 2.9 mmol/L (3.5-5.1); Sodium 144 mmol/L (137-145)
[2019-05-01] MEDS ORDERED: Potassium Replacement Protocol 1 EACH MISC MISCELLANE PRN (05:42)
[2019-05-01 05:58] LABS: Glucose,Whole Blood 179 mg/dL (75-99)
[2019-05-01] MEDS: POTASSIUM CHLORIDE 20 MEQ in WATER FOR INJECTION 1 100ML.BAG IVPB SCH ×3 (06:24→12:21)
--- NOTE | 2019-05-01 09:06 | PN ---
PROGRESS NOTE PULMONARY/CRITICAL CARE PROGRESS NOTE: CRITICAL CARE TIME: 33 minutes. DATE OF SERVICE: 05/01/2019 This 69-year-old male admitted back on April 15 with episode of colitis and abdominal pain. He apparently was thought to have aspirated on April 17 and was intubated for acute respiratory failure, that was on April 17. Because of failure to wean, on April 27, he had a tracheostomy performed. He also had a colonoscopy performed on 20 of April. Yesterday, he spent from 8:00 in the morning until 3:30 in the morning on PSV 5, CPAP of 5. Actually, the plan yesterday was to keep him on PSV CPAP only until change of shift. The patient seems to be doing relatively well. This morning he is back on the assist-control mode. His vent settings are the volume assist-control rate 26, tidal volume 450, FiO2 of 40%, PEEP of 5. Blood gases show pO2 of 89, pCO2 44, and pH 7.46. These blood gases are consistent with a relative hypoxemia and metabolic alkalosis. He is getting TPN at 60 mL an hour, lipids at 10 mL an hour and 0.9 at 20 mL an hour. The patient seems relatively comfortable, awake and alert. His other medical problems include acute respiratory distress, acute colitis with possible cecal mass, severe abdominal distention, benign essential hypertension, history of alcohol abuse, sleep apnea syndrome, GERD, type 2 diabetes, sleep apnea syndrome, and tracheostomy with failure to wean. PHYSICAL EXAMINATION: VITAL SIGNS: Current vital signs are reviewed. Temperature is 97.9, heart rate 91, respiratory rate 27, blood pressure 112/78, mean 89 and saturations are 96%. Appears in no acute distress. HEENT: Examination is grossly unremarkable. There is an NG tube in place. NECK: Supple. Full range of motion. No adenopathy or thyromegaly. Neck veins are flat. There is a midline tracheostomy. CARDIOVASCULAR: Examination reveals regular rhythm and rate. Heart rate about 90 beats per minute. S1, S2 normal. No distinct murmur noted. Heart sounds are distant. LUNGS: Reveal some diffuse coarse rhonchi. Breath sounds are diminished. ABDOMEN: Soft. Bowel sounds are heard. EXTREMITIES: Are intact. No cyanosis, clubbing, or edema. SKIN: Without rash. NEUROLOGIC: Examination is brief but nonfocal. MICROBIOLOGIC: Microbiologically, other than for a blood culture on the 17 of April showing coag- negative staph, all his microbiology is negative. LABORATORY DATA: Laboratory data includes a white count 11.2, hemoglobin 13.6, hematocrit 42.1, platelet count 493,000. Sodium 144, potassium 2.9, being replaced, chloride 103 CO2 of 29. Anion gap is normal at 12. BUN and creatinine were 36 and 0.55, suggesting prerenal azotemia. Calcium is 10.5. X-RAY: Chest x-ray is reviewed and shows a midline tracheostomy. There is some bibasilar atelectasis. Aeration seem to be improved bilaterally. MEDICATIONS: Medications are reviewed. They were reviewed yesterday. All unnecessary medications were discontinued. ASSESSMENT: 1. Acute hypoxemic and hypercapnic respiratory failure secondary to bilateral aspiration pneumonia as well as the development of acute respiratory distress syndrome, improved. 2. Status post tracheostomy on April 27 for failure to wean. 3. Acute colitis with possible cecal mass and abdominal distention. 4. Hypertension. 5. History of alcoholism. 6. Sleep apnea syndrome. 7. Abdominal pain secondary to colitis of possible malignancy, status post colonoscopy on April 20. 8. History of gastroesophageal reflux disease. 9. Type 2 diabetes. PLAN: The patient spent from 8:00 in the morning to 3:30 in the morning on PSV 5, CPAP of 5. This morning he will go on to trach collar at 40%. His medications are reviewed. There is improvement in his chest x-ray. His overall prognosis still remains guarded. We will continue to monitor closely. Microbiology thus far has all been negative. No additional recommendations. CRITICAL CARE TIME: 33 minutes. MMODL / IJN: [id number] /
[2019-05-01] MEDS: HEPARIN SODIUM,PORCINE 5,000 UNIT/ML 1 ML VIAL SQ SCH ×2 (09:07→21:21)
[2019-05-01] MEDS: PANTOPRAZOLE 40 MG/10 ML VIAL IV SCH (09:07)
[2019-05-01] MEDS: CHLORHEXIDINE GLUCONATE 15 ML CUP MUCOUS MEM SCH ×2 (09:07→21:20)
[2019-05-01] MEDS: 1: MVI, ADULT NO.4 WITH VIT K 10 ML, TRACE (CONC-1ML/DOSE) 1 ML in AMINO ACID 5%-D15W+LY IV SCH ×3 (09:08)
--- NOTE | 2019-05-01 11:31 | P.PN ---
<JaimesGabriela A - Last Filed: 05/01/19 11:31> Subjective Progress Note Date: 05/01/19 CHIEF COMPLAINT: Abdominal pain HISTORY OF PRESENT ILLNESS: Patient remains on mechanical ventilation in the ICU. S/P trach on 04/27/2019. Patient has been weaning this morning and the plan is to change him to a trach collar sometime today. TPN is infusing. NG to LIS with bilious drainage. PHYSICAL EXAM: VITAL SIGNS: Reviewed. GENERAL: Well-developed. Slightly anxious. HEENT: NG to LIS. Trach site without bleeding or signs of infection. No sclera icterus. Extraocular movements grossly intact. Moist buccal mucosa. Head is atraumatic, normocephalic. ABDOMEN: Obese. Soft. Positive bowel sounds. No pain with palpation. NEUROLOGIC: Awake. Anxious. ASSESSMENT: 1. Abdominal pain 2. Marked wall thickening of cecum, possible malignancy versus nonspecific colitis PLAN: Ventilator management per Dr. Joy. Patient to be switched to trach collar today. Continue NG to LIS Continue TPN Will require barium enema in the future to evaluate for possible cecal mass Nurse practitioner note has been reviewed by physician. Signing provider agrees with the documented findings, assessment, and plan of care. Objective - Vital Signs Vital signs: Vital Signs Temp 97.8 F 05/01/19 07:00 Pulse 105 H 05/01/19 10:00 Resp 16 05/01/19 10:00 BP 132/89 05/01/19 09:30 Pulse Ox 95 05/01/19 10:00 Intake & Output 04/30/19 05/01/19 05/01/19 18:59 06:59 18:59 Intake Total 356 936 352 Output Total 3205 1780 690 Balance -2849 -844 -338 Weight 99.3 kg 95.5 kg Intake: IV 356 276 92 Potassium Chloride 10 meq 100 In Water For Injection 1 100ml.bag @ 100 mls/hr IVPB Q1H [facility] Rx#: [id number] Sodium Chloride 0.9% 1, 200 240 80 000 ml @ 20 mls/hr IV . Q24H [facility] Rx#:[id number] Vancomycin 1,500 mg In 20 Sodium Chloride 0.9% 250 ml @ 125 mls/hr IVPB Q8H [facility] Rx#:[id number] pressure bag 0.9 36 36 12 Intake, IV Titration 660 260 Amount Mvi, Adult No.4 with Vit 660 260 K 10 ml Trace (Conc-1Ml/ Dose) 1 ml Potassium Chloride 30 meq In Amino Acid 5%-D15w+Lytes*E* 1, 000 ml @ 42 mls/hr IV . Q24H [facility] Rx#:[id number] Output: Gastric Drainage 850 450 Urine 2355 1330 690 Other: Voiding Method Indwelling Catheter Indwelling Catheter Indwelling Catheter ABP, PAP, CO, CI - Last Documented Arterial Blood Pressure 160/76 - Labs CBC & Chem 7: 05/01/19 04:50 05/01/19 04:50 Labs: Abnormal Lab Results - Last 24 Hours (Table) 04/30/19 04/30/19 04/30/19 Range/Units 11:46 17:16 17:57 WBC (3.8-10.6) k/uL Plt Count (150-450) k/uL ABG pH (7.35-7.45) ABG HCO3 (21-25) mmol/L ABG Total CO2 (19-24) mmol/L Potassium (3.5-5.1) mmol/L BUN (9-20) mg/dL Creatinine (0.66-1.25) mg/dL Glucose (74-99) mg/dL POC Glucose (mg/dL) 149 H 154 H 154 H (75-99) mg/dL Calcium (8.4-10.2) mg/dL Ionized Calcium Blade (4.5-5.3) mg/dL 04/30/19 05/01/19 05/01/19 Range/Units 23:48 04:46 04:50 WBC 11.2 H (3.8-10.6) k/uL Plt Count 493 H (150-450) k/uL ABG pH 7.46 H (7.35-7.45) ABG HCO3 32 H (21-25) mmol/L ABG Total CO2 33 H (19-24) mmol/L Potassium (3.5-5.1) mmol/L BUN (9-20) mg/dL Creatinine (0.66-1.25) mg/dL Glucose (74-99) mg/dL POC Glucose (mg/dL) 169 H (75-99) mg/dL Calcium (8.4-10.2) mg/dL Ionized Calcium Blade (4.5-5.3) mg/dL 05/01/19 05/01/19 Range/Units 04:50 05:57 WBC (3.8-10.6) k/uL Plt Count (150-450) k/uL ABG pH (7.35-7.45) ABG HCO3 (21-25) mmol/L ABG Total CO2 (19-24) mmol/L Potassium 2.9 L (3.5-5.1) mmol/L BUN 36 H (9-20) mg/dL Creatinine 0.55 L (0.66-1.25) mg/dL Glucose 185 H (74-99) mg/dL POC Glucose (mg/dL) 179 H (75-99) mg/dL Calcium 10.5 H (8.4-10.2) mg/dL Ionized Calcium Blade 5.5 H (4.5-5.3) mg/dL Microbiology - Last 24 Hours (Table) 04/19/19 09:28 Acid Fast Bacilli Smear - Final Bronchoalviolar Lavage - Left Acid Fast Bacilli Culture - Preliminary 04/19/19 09:28 Fungal Culture - Preliminary Bronchoalviolar Lavage - Left <Azam Aranda - Last Filed: 05/01/19 16:58> Subjective As above. Patient doing much better today. He is sitting up in the chair. Nasogastric tube remains to suction. Once patient is able we'll send for barium enema. Objective - Vital Signs Vital signs: Vital Signs Temp 100.1 F H 05/01/19 12:00 Pulse 104 H 05/01/19 16:35 Resp 12 05/01/19 15:00 BP 137/96 05/01/19 15:00 Pulse Ox 90 L 05/01/19 15:00 Intake & Output 04/30/19 05/01/19 05/01/19 18:59 06:59 18:59 Intake Total 356 936 877 Output Total 3710 0999 4425 Balance -5422 -878 -0848 Weight 99.3 kg 95.5 kg Intake: IV 356 276 167 Potassium Chloride 10 meq 100 In Water For Injection 1 100ml.bag @ 100 mls/hr IVPB Q1H [facility] Rx#: [id number] Sodium Chloride 0.9% 1, 200 240 140 000 ml @ 20 mls/hr IV . Q24H [facility] Rx#:[id number] Vancomycin 1,500 mg In 20 Sodium Chloride 0.9% 250 ml @ 125 mls/hr IVPB Q8H [facility] Rx#:[id number] pressure bag 0.9 36 36 27 Intake, IV Titration 660 710 Amount Amino Acid 5%-D15w+Lytes* 490 E* 1,000 ml @ 70 mls/hr IV .BY DURATION [facility] Rx#: [id number] Mvi, Adult No.4 with Vit 660 120 K 10 ml Trace (Conc-1Ml/ Dose) 1 ml Potassium Chloride 30 meq In Amino Acid 5%-D15w+Lytes*E* 1, 000 ml @ 42 mls/hr IV . Q24H [facility] Rx#:[id number] Potassium Chloride 20 meq 100 In Water For Injection 1 100ml.bag @ 50 mls/hr IVPB Q2H [facility] Rx#: [id number] Output: Gastric Drainage 136 394 7550 Urine 2355 1330 1035 Other: Voiding Method Indwelling Catheter Indwelling Catheter Indwelling Catheter ABP, PAP, CO, CI - Last Documented Arterial Blood Pressure 130/64 - Labs CBC & Chem 7: 05/01/19 04:50 05/01/19 04:50 Labs: Abnormal Lab Results - Last 24 Hours (Table) 04/30/19 04/30/19 04/30/19 Range/Units 17:16 17:57 23:48 WBC (3.8-10.6) k/uL Plt Count (150-450) k/uL ABG pH (7.35-7.45) ABG HCO3 (21-25) mmol/L ABG Total CO2 (19-24) mmol/L Potassium (3.5-5.1) mmol/L BUN (9-20) mg/dL Creatinine (0.66-1.25) mg/dL Glucose (74-99) mg/dL POC Glucose (mg/dL) 154 H 154 H 169 H (75-99) mg/dL Calcium (8.4-10.2) mg/dL Ionized Calcium Blade (4.5-5.3) mg/dL 05/01/19 05/01/19 05/01/19 Range/Units 04:46 04:50 04:50 WBC 11.2 H (3.8-10.6) k/uL Plt Count 493 H (150-450) k/uL ABG pH 7.46 H (7.35-7.45) ABG HCO3 32 H (21-25) mmol/L ABG Total CO2 33 H (19-24) mmol/L Potassium 2.9 L (3.5-5.1) mmol/L BUN 36 H (9-20) mg/dL Creatinine 0.55 L (0.66-1.25) mg/dL Glucose 185 H (74-99) mg/dL POC Glucose (mg/dL) (75-99) mg/dL Calcium 10.5 H (8.4-10.2) mg/dL Ionized Calcium Blade 5.5 H (4.5-5.3) mg/dL 05/01/19 05/01/19 Range/Units 05:57 11:49 WBC (3.8-10.6) k/uL Plt Count (150-450) k/uL ABG pH (7.35-7.45) ABG HCO3 (21-25) mmol/L ABG Total CO2 (19-24) mmol/L Potassium (3.5-5.1) mmol/L BUN (9-20) mg/dL Creatinine (0.66-1.25) mg/dL Glucose (74-99) mg/dL POC Glucose (mg/dL) 179 H 153 H (75-99) mg/dL Calcium (8.4-10.2) mg/dL Ionized Calcium Blade (4.5-5.3) mg/dL Microbiology - Last 24 Hours (Table) 04/19/19 09:28 Acid Fast Bacilli Smear - Final Bronchoalviolar Lavage - Left Acid Fast Bacilli Culture - Preliminary Assessment and Plan (1) Colitis Current Visit: Yes Status: Acute Code(s): K52.9 - NONINFECTIVE GASTROENTERITIS AND COLITIS, UNSPECIFIED SNOMED Code(s): 76055596
[2019-05-01 11:51] LABS: Glucose,Whole Blood 153 mg/dL (75-99)
[2019-05-01] MEDS: HYDROmorphone 0.5 MG/0.5 ML SYRINGE IVP PRN ×3 (12:07→23:12)
[2019-05-01] MEDS: SODIUM CHLORIDE 0.9% 1,000 ML IV SCH (12:24)
[2019-05-01] MEDS: FAT EMULSION 20% 250 ML in EMPTY BAG 1 BAG IV SCH (17:13)
[2019-05-01 17:52] LABS: Glucose,Whole Blood 154 mg/dL (75-99)
--- NOTE | 2019-05-01 21:15 | P.PN ---
Subjective Progress Note Date: 05/01/19 Acute respiratory failure, aspiration pneumonia, severe abdominal pain, possible malignancy in the cecum, possible colitis, delirium tremor, urgent hypertension, COPD This is a 69-year-old male patient of Dr. Gallardo with past medical history of hypertension, hyperlipidemia, COPD, gastroesophageal reflux disease, remote history of tobacco use, obstructive sleep apnea not using CPAP. Patient complains of sudden onset of abdominal pain starting on Tuesday. He also complains of bloating in the abdomen for the past couple months as well as weight loss of 5-10 pounds over the past 3 months. He complains of decreased appetite. He states he has had occasional burgundy stools. He denies any black stools, no diarrhea, no vomiting. He denies any urinary symptoms. Patient states he had his last colonoscopy in 2013 which was normal. Patient presents to [facility] emergency center for evaluation. Abdominal x-ray shows no acute findings. CAT scan of the abdomen and pelvis showed marked thickening of the cecum concerning for malignancy. A nonspecific colitis is not excluded but felt to be less likely. Thickening in the gastric rugae which may be secondary to under distention versus a nonspecific gastritis. EKG is a sinus tachycardia with right bundle branch block, left AFB. WBC 16.7, hemoglobin 14.7, creatinine 0.74. Troponin negative. Amylase and lipase, liver function tests all normal. Urinalysis was clear with 1+ protein. Patient was admitted to the [facility] floor, consult with Dr. Givens, IV fluids, pain medications and Zofran. Plan is for colonoscopy tomorrow. 04/17: Overnight, patient developed acute respiratory failure and was transferred to the intensive care unit and patient placed on BiPAP, currently under care of Dr. Caballero. Patient subsequently intubated and placed on mechanical ventilation. Echocardiogram from yesterday reveals EF 55-60% with moderate concentric left ventricle hypertrophy, trace mitral regurgitation, trace tricuspid regurgitation, no pulmonary hypertension. No pericardial effusion. Chest x-ray shows new right basilar and pneumonic consolidation with diminished inspiration background right hilar and left basilar more patchy edema and or infiltrate felt present. Repeat chest x-ray shows new endotracheal tube with placement described with recommendations to pullback. Mild cardiomegaly and low lung volumes with bilateral hilar edema and/or infiltrate and right basilar consolidation all redemonstrated increasing left basilar infiltrate felt present. Abdomen was more distended and NG tube was placed. Immediate surgical consultation was requested by Dr. Caballero. Dr. Givens attempted bedside colonoscopy but patient was not properly prepped. He is scheduled for CAT scan of the abdomen and pelvis this afternoon at 2:30. NG tube is in place with bile color returned. Family members are in the waiting room and have been updated. 04/18: The patient remains in intensive care unit intubated and on mechanical ventilation. Vent settings have been decreased and no plan for sedation holiday today. He was weaned off norepinephrine this morning. Urine output has been 50-75 mL per hour. Noted that the Goldberg tube is pink but urine is alesia most likely a drug reaction. Patient has had several bowel movements this morning. Antibiotics have been switched to Zosyn and vancomycin. TSH 0.224 with normal free T4 at 1.24. Surgical consultation has been changed to Dr. Garvey per family wishes. 04/19: Patient remains in intensive care unit intubated and on mechanical ventilation. Patient has had increased purulent secretions and underwent reintubation by Dr. Caballero. He also perform bronchoscopy at the bedside and suction 20 ML's purulent material specimen was sent to the lab for cytology and culture. He is concern for ARDS. Patient is continued on Zosyn and vancomycin. He has been off vasopressors since yesterday morning. Patient has had a small amount of liquid stool today much decreased from yesterday. Dr. Garvey is on for surgery at this point. Patient is having minimal output from NG tube. Bowel sounds remain hypoactive. Consult has been added for GI regarding concern for ischemic colitis. 04/20: Patient remains intubated and on mechanical ventilation. Repeat chest x- ray shows continued mild to moderate heart failure. Small to moderate effusions with prominent bibasilar atelectasis and/or consolidation persists. Dr. Garvey is planning for bedside colonoscopy today. Patient was ordered for soapsuds enema last night and this morning. Tube feedings on hold. He has been afebrile, heart rate in the 50s and 60s, blood pressure 141/66. Pulse ox 99%. WBC 8.1, hemoglobin 11.2. Creatinine 0.65. Bronchial washing cytology is pending. Bronchial cultures in progress. Patient will need to start tube feedings or TPN depending on results of colonoscopy scheduled for this afternoon. Patient was given 1 dose of IV Lasix this morning and is diuresing well. Family in the waiting room have been updated. 04/21: Patient remains in the bed, FiO2 40%, PEEP of 6, NG tube has been placed and had taken out the OG tube, fecaloid billous contents are observed in the NG tube, bowel sounds are very diminished today, no bowel movements over the past 24 hours, x-rays of the abdomen will be done to evaluate for progressive bowel obstruction, patient remains to be afebrile, no leukocytosis bronchial washing cultures shows no normal zander vital signs are stable no hypotensive events, patient is slightly hypotensive on IV Solu-Medrol 40 every 8 04/23: Patient remains intubated and on mechanical ventilation. Dr. Dunham does not plan for attempt at weaning today. He is started him on hydralazine for blood pressure control. Patient has been started on TPN. On Tuesday, patient underwent colonoscopy with Dr. Garvey that revealed reticulosis, tortuous colon a nd recommends once patient is off ventilation to have barium enema to evaluate the ileocecal valve. Keep NG tube post extubation and hold tube feedings for now. No bowel movement today. 04/24: Patient had a rough night became significantly hypertensive, tachypneic and tachycardic. Patient was started on labetalol drip once other options were attempted without success and this was weaned off this morning. Patient also was placed on Nimbex and fentanyl drip which are to be weaned off today. Chest x-ray shows worsening interstitial infiltrates bilaterally and possible interstitial edema. Dr. Dunham increase Lasix to 40 mg IV push every 12 hours. Patient has not had a bowel movement. He remains on TPN and NG tube to suction. Urine output is adequate, tea-colored. Discussed yesterday the possibility of needing a trach and PEG with family members. At this time, Dr. Dunham would like to hold off. 04/25: Patient is still sedated on mechanical ventilation he had failed his weaning parameter today I want to see him when the and the son were in the room door tachycardia with Dr. dao about further plan. Pulmonary and from medicine standpoint patient most likely will need to go to trach no PEG tube can be done for now expected the plan probably for Tuesday and from thereon if more stable can go for his barium enema to come with final diagnosis of the tumor or the finding in the cecum and the large intestine and from thereon further management can be planned. Patient still on multiple drips for pain management let pressure TPN and DT. 04/26: A Chin still on mechanical ventilation, sedated, he is slightly bit awaking when backing off on sedation is still very agitated between having quite bed elevated blood pressure and pulse rate did not succeed on weaning parameter and most likely he will need tracheostomy by tomorrow. PEG tube is negative be possible at this point because of the possibility of mass in the cecum with obstruction cankerous problem if he is more stable can go for barium enema and then PEG tube if there is no cecal mass likely his CEA came back negative. 04/27 patient examined bedside currently intubated D 10. Patient came in with abdominal pain, nausea, vomiting followed by a respiratory failure the next day leading to intubation. Patient is found to be agitated him on ventilator. Currently requiring 75 mics of propofol. On vital evaluation patient had a heart rate of 77 respiratory rate 26 blood pressure 159/62 on clear with pain d rip abdominal x-ray this morning shows nonspecific bowel pattern with the bilateral pleural effusion chest x-ray suggestive of pulmonary edema versus consolidation. Patient is currently on Lasix 40 mg IV twice a day and making good urine output 75 mL per hour. Blood cultures so far negative. Bronchoscopy results are negative so far. Plan for tracheostomy placement today. PEG tube is on hold until further information about the cecal mass/colitis. 04/28: Examined at bedside currently on CPAP. Patient was on a sedation holiday for approximately 1 hour sedation has been increased due to fatigue and agitation. Vital signs have been stable blood pressure 151/60 pulse ox a 97% on CPAP pulse rate 98. Patient was able to follow commands however weak. Patient was able to nod head and answer actions appropriately. Family at the bedside discussing plan of care. Continue nutritional support with TPN. 04/29: Patient examined bedside currently on CPAP tolerating. Patient is more alert today compared to yesterday. Patient is able to follow commands movements are weak and nods head appropriately to questions. Patient is on propofol at 10 at this time. She was on a sedation holiday however heart rate and blood pressure increase. Urinary output approximately 60-70 ML's per hour. Patient has not had a bowel movement continues with NG suction approximately 600-700 ML's output in 24 hours. 04/30: Patient is sitting up in bed does appear in less distress today he continues to have the trach in place we're trying to the patient on the ventilator hopefully he will be on trach collar tomorrow morning, family were at the bedside and updated about his situation he will be weaned off sedation completely liver on today he does not appear to be in acute distress at this time, we will hold off transfer the patient until after he weaned off. 05/01: Patient is sitting up in bed he is more awake and more alert is moving all his extremities currently has a trach collar in place, he continued to follow commands appropriately, his family were at the bedside and updated about his current situation. Review of systems: Constitutional: Generalized weakness, follow simple commands only. HEENT: No headache, blurred vision, positive for dysphagia, positive for tracheostomy. Cardiovascular: Palpitation, no chest pain, appears to be somewhat short of breath, no edema, mild minimal coughing, Respiratory: Minimal cough, tachypnea, shortness breath, no pleurisy. Gastrointestinal: No abdominal pain, nausea, vomiting, no bowel movement. Genitourinary: Goldberg catheter in place. Behavioral: Withdrawn, generally weak. Objective - Vital Signs Vital signs: Vital Signs Temp 97.8 F 05/01/19 07:00 Pulse 105 H 05/01/19 10:00 Resp 16 05/01/19 10:00 BP 132/89 05/01/19 09:30 Pulse Ox 95 05/01/19 10:00 Intake & Output 04/30/19 05/01/19 05/01/19 18:59 06:59 18:59 Intake Total 356 936 352 Output Total 3205 1780 690 Balance -2849 -844 -338 Weight 99.3 kg 95.5 kg Intake: IV 356 276 92 Potassium Chloride 10 meq 100 In Water For Injection 1 100ml.bag @ 100 mls/hr IVPB Q1H [facility] Rx#: [id number] Sodium Chloride 0.9% 1, 200 240 80 000 ml @ 20 mls/hr IV . Q24H [facility] Rx#:[id number] Vancomycin 1,500 mg In 20 Sodium Chloride 0.9% 250 ml @ 125 mls/hr IVPB Q8H [facility] Rx#:[id number] pressure bag 0.9 36 36 12 Intake, IV Titration 660 260 Amount Mvi, Adult No.4 with Vit 660 260 K 10 ml Trace (Conc-1Ml/ Dose) 1 ml Potassium Chloride 30 meq In Amino Acid 5%-D15w+Lytes*E* 1, 000 ml @ 42 mls/hr IV . Q24H [facility] Rx#:[id number] Output: Gastric Drainage 850 450 Urine 2355 1330 690 Other: Voiding Method Indwelling Catheter Indwelling Catheter Indwelling Catheter ABP, PAP, CO, CI - Last Documented Arterial Blood Pressure 160/76 - Exam Neck HEENT: trach in with no lymph node enlargement no bruits.. Lungs: Decreased breath some bilateral rhonchi positive mild expiratory wheezes. Chest Wall: Decrease expansion with deep inspiration no tenderness and no deformity was found on exam, no costochondral pain or discomfort. Heart: Regular rate and rhythm, S1, S2, positive S3 positive tachycardia., no murmur, rub or gallop. Back: Symmetric, no curvature, ROM normal, no CVA tenderness. Abdomen: Soft distended positive bowel sound not able to feel any organomegaly no rebound or rigidity. Extremities: Extremities normal, atraumatic, no cyanosis or edema. Pulses: 2+ and symmetric. Skin: Skin color, texture, tugor normal, no rashes or lesions. Neurologic: awake , drowzy follow simple commands, extremely weak. - Labs CBC & Chem 7: 05/04/19 04:20 05/04/19 04:20 Labs: Abnormal Lab Results - Last 24 Hours (Table) 04/30/19 04/30/19 04/30/19 Range/Units 11:46 17:16 17:57 WBC (3.8-10.6) k/uL Plt Count (150-450) k/uL ABG pH (7.35-7.45) ABG HCO3 (21-25) mmol/L ABG Total CO2 (19-24) mmol/L Potassium (3.5-5.1) mmol/L BUN (9-20) mg/dL Creatinine (0.66-1.25) mg/dL Glucose (74-99) mg/dL POC Glucose (mg/dL) 149 H 154 H 154 H (75-99) mg/dL Calcium (8.4-10.2) mg/dL Ionized Calcium Blade (4.5-5.3) mg/dL 04/30/19 05/01/19 05/01/19 Range/Units 23:48 04:46 04:50 WBC 11.2 H (3.8-10.6) k/uL Plt Count 493 H (150-450) k/uL ABG pH 7.46 H (7.35-7.45) ABG HCO3 32 H (21-25) mmol/L ABG Total CO2 33 H (19-24) mmol/L Potassium (3.5-5.1) mmol/L BUN (9-20) mg/dL Creatinine (0.66-1.25) mg/dL Glucose (74-99) mg/dL POC Glucose (mg/dL) 169 H (75-99) mg/dL Calcium (8.4-10.2) mg/dL Ionized Calcium Blade (4.5-5.3) mg/dL 05/01/19 05/01/19 Range/Units 04:50 05:57 WBC (3.8-10.6) k/uL Plt Count (150-450) k/uL ABG pH (7.35-7.45) ABG HCO3 (21-25) mmol/L ABG Total CO2 (19-24) mmol/L Potassium 2.9 L (3.5-5.1) mmol/L BUN 36 H (9-20) mg/dL Creatinine 0.55 L (0.66-1.25) mg/dL Glucose 185 H (74-99) mg/dL POC Glucose (mg/dL) 179 H (75-99) mg/dL Calcium 10.5 H (8.4-10.2) mg/dL Ionized Calcium Blade 5.5 H (4.5-5.3) mg/dL Microbiology - Last 24 Hours (Table) 04/19/19 09:28 Acid Fast Bacilli Smear - Final Bronchoalviolar Lavage - Left Acid Fast Bacilli Culture - Preliminary 04/19/19 09:28 Fungal Culture - Preliminary Bronchoalviolar Lavage - Left Assessment and Plan Assessment: Assessment and Plan Plan: 1. acute respiratory failure secondary to aspiration pneumonia post Trach , currently on trach collar, continue aggressive pulmonary toileting continue to monitor the patient very closely. 2. acute aspiration pneumonia: Remain on mechanical ventilation still on gram- negative coverage with Zosyn and vancomycin for now continue Solu-Medrol and updraft treatment. Repeat chest x-ray shows continuing changes of congestive heart failure 3. COPD: With mild exacerbation: Continue Solu-Medrol, continue O2 continue u pdraft treatment. 4. abdominal pain: With possible obstruction versus colitis versus malignancy in the cecum still seen Dr. garvey continue antibiotics barium study plan once patient is extubated or stable to be able to do the test. CEA was very low which still not extremity confirmative for no cancer. Abdominal x-ray shows nonspecific abdomen. No dilated bowel loops. There seen in the rectum. Bilateral infiltrate and pleural effusion. 5. delirium tremens. Resolved. 6. Accelerated hypertension. Better we will continue with current BP management. 7. obstructive sleep apnea . Status post tracheostomy. 8. Possible septicemia. Blood culture initially showed coagulase-negative stap h his is likely contamination, patient was on IV antibiotic in the form of vancomycin and Zosyn currently is off. 9. type 2 diabetes: On insulin currently including insulin drip if needed continue to watch blood sugar to keep it below 150. 10. GI prophylaxis/severe GERD on pantoprazole IV. 11. DVT prophylaxis: Patient remain on Lovenox. 12. Medical debility. Continue to improve physical therapy evaluation is in order.
[2019-05-01] MEDS ORDERED: IPRATROPIUM-ALBUTEROL 3 ML NEB ONE (23:30)
[2019-05-02 03:47] LABS: Glucose,Whole Blood 188 mg/dL (75-99)
[2019-05-02] MEDS ORDERED: HYDROmorphone 0.5 MG/0.5 ML SYRINGE ONE (04:10)
[2019-05-02] MEDS ORDERED: IPRATROPIUM-ALBUTEROL 3 ML NEB ONE (04:10)
[2019-05-02 05:29] LABS: HGB 14.4 gm/dL (13.0-17.5); MCH 29.7 pg (25.0-35.0); MCHC 32.1 g/dL (31.0-37.0); MCV 92.5 fL (80.0-100.0); Mean Platelet Volume 7.7; Platelet Count 465 k/uL (150-450); RBC 4.86 m/uL (4.30-5.90); RDW 14.2 % (11.5-15.5); WBC 12.6 k/uL (3.8-10.6)
[2019-05-02 05:37] LABS: African American GFR (CKD) >90 (>60 ml/min/1.73 sqM); Blood Urea Nitrogen 39 mg/dL (9-20); Calcium 10.9 mg/dL (8.4-10.2); Carbon Dioxide 29 mmol/L (22-30); Glucose 211 mg/dL (74-99)
[2019-05-02 05:48] LABS: Anion Gap 12 mmol/L; Chloride 103 mmol/L (98-107); Potassium 3.3 mmol/L (3.5-5.1); Sodium 144 mmol/L (137-145)
[2019-05-02 05:57] LABS: Glucose,Whole Blood 163 mg/dL (75-99)
[2019-05-02] MEDS: INSULIN ASPART (NovoLOG) 100 UNIT/ML VIAL SQ SCH ×3 (06:02→18:01)
[2019-05-02] MEDS: IPRATROPIUM-ALBUTEROL 3 ML NEB INHALATION SCH ×7 (06:14→23:30)
[2019-05-02] MEDS: POTASSIUM CHLORIDE 20 MEQ in WATER FOR INJECTION 1 100ML.BAG IVPB SCH ×2 (06:32→09:28)
--- NOTE | 2019-05-02 06:41 | XR ---
EXAM: XR Chest, 1 View CLINICAL HISTORY: NG placement TECHNIQUE: Frontal view of the chest. COMPARISON: 05/01/2019 at 0407 hrs. FINDINGS: Lungs: Similar bibasilar atelectasis and patchy opacities. Pleural space: Unremarkable. No pneumothorax. Heart: Unremarkable. No cardiomegaly. Mediastinum: Unremarkable. Bones/joints: Unremarkable. Tubes, lines and devices: NG tube tip in the left upper quadrant within the proximal to mid stomach. Stable tracheostomy tube. Stable left subclavian venous catheter with the tip in the SVC. IMPRESSION: 1. NG tube tip in the left upper quadrant within the proximal to mid stomach. 2. Rest of the findings stable.
[2019-05-02] MEDS: HEPARIN SODIUM,PORCINE 5,000 UNIT/ML 1 ML VIAL SQ SCH ×2 (09:20→21:13)
[2019-05-02] MEDS: CHLORHEXIDINE GLUCONATE 15 ML CUP MUCOUS MEM SCH (09:20)
[2019-05-02] MEDS: FUROSEMIDE 10 MG/ML 4 ML VIAL IV SCH ×2 (09:20→16:12)
[2019-05-02] MEDS: PANTOPRAZOLE 40 MG/10 ML VIAL IV SCH (09:21)
--- NOTE | 2019-05-02 09:26 | PN ---
PROGRESS NOTE PULMONARY/CRITICAL CARE PROGRESS NOTE: DATE OF SERVICE: 05/02/2019 CRITICAL CARE TIME: 33 minutes This is a 69-year-old male who was admitted way back on April 15 with episodes of colitis and abdominal pain. He apparently aspirated on April 17 and for that reason, developed hypoxemic respiratory failure and he was required to be intubated for respiratory failure on April 17. He did not wean initially and on April 27, ten days after intubation, he had a tracheostomy performed. In addition to that, another procedure was a colonoscopy which was done on April 20. For the last more than 24 hours, he has been on trach collar at 35%. He is doing very well. He was transitioned from the volume assist-control mode to PSV/CPAP to trach collar. Currently, he is on trach collar at 35%. He is getting TPN at 100 mL an hour. He otherwise had a pretty uneventful night. We are still concerned quite significantly about his abdomen. Dr. Aranda wants to do a barium enema. We said he could probably do either on or Tuesday. We just want to make sure the patient is stable. The patient otherwise is doing well without complaints. He is lying in bed. He appears not to be having any respiratory distress. Even when the trach collar is not over his tracheostomy tube, saturations are in the mid to high 90s. Current vital signs reviewed. Temperature 99.1, heart rate 100, respiratory rate about 15, blood pressure 134/93 mean 106 and saturations are 96% on 35% trach collar. Appears in no acute distress. No respiratory distress. No audible wheezing. No use of accessory muscles. HEENT: Examination is grossly unremarkable. NECK: Supple. Full range of motion. There is a midline tracheostomy tube. Neck veins are flat. CARDIOVASCULAR: Examination reveals regular rhythm and rate. Heart rate about 100 beats per minute. S1, S2 normal. There is no S3, S4, or murmur. LUNGS: Reveal mostly clear breath sounds. There is a few scattered rhonchi. No wheezes or crackles. ABDOMEN: Soft. It is mildly distended. Bowel sounds are noted. EXTREMITIES: Intact. No cyanosis, clubbing, or edema. SKIN: Without rash. NEUROLOGIC: Examination is brief, but nonfocal. Microbiologic studies are essentially negative, although blood cultures from April 17 showed evidence of coag-negative staph. LABORATORY DATA: White count 12.6, hemoglobin 14.4, hematocrit 45, platelet count 465,000. Sodium 144, potassium 3.3, chloride is 103, CO2 is 29, anion gap is normal at 12. BUN and creatinine were 39 and 0.52 respectively. His chest x-ray shows a properly placed tracheostomy tube. His chest x-ray shows bibasilar atelectasis and/or diffuse infiltrate. Medications are reviewed. ASSESSMENT: 1. Acute hypoxemic and hypercapnic respiratory failure, secondary to bilateral aspiration pneumonia as well as development of acute respiratory distress syndrome. Both of these have improved. 2. Status post tracheostomy on April 27 with failure to wean. 3. Previous mechanical ventilation beginning on April 17 for acute respiratory failure and aspiration pneumonia. 4. Acute colitis with possible cecal mass and abdominal distention. 5. Benign essential hypertension. 6. History of alcohol abuse. 7. Sleep apnea syndrome. 8. Abdominal pain secondary to colitis. 9. History of gastroesophageal reflux disease. 10.Type 2 diabetes mellitus. PLAN: The patient has been on trach collar for more than 24 hours. The patient is receiving TPN at [address] Aranda wants to do a barium enema. That could probably be done either or Tuesday. Will continue to monitor him closely. His prognosis is still very guarded. His abdomen is still mildly distended, although it appears to have a bowel sounds and not having much in the way of abdominal pain. Additional recommendations and suggestions are forthcoming. CRITICAL CARE TIME: 33 minutes. MMANALY / SUE: [id number] /
[2019-05-02 09:43] LABS: Magnesium 2.2 mg/dL (1.6-2.3); Phosphorus 3.3 mg/dL (2.5-4.5)
--- NOTE | 2019-05-02 10:27 | P.PN ---
<Gabriela Jaimes Himanshu - Last Filed: 05/02/19 10:24> Subjective Progress Note Date: 05/02/19 CHIEF COMPLAINT: Abdominal pain HISTORY OF PRESENT ILLNESS: Patient remains in the ICU. He has been on trach collar since yesterday. Tolerating well. Slightly anxious and attempting to get OOB. He denies abdominal pain. NG to LIS with small amount of bilious drainage. TPN is infusing. PHYSICAL EXAM: VITAL SIGNS: Reviewed. GENERAL: Well-developed. Slightly anxious. HEENT: NG to LIS. Trach site without bleeding or signs of infection. No sclera icterus. Extraocular movements grossly intact. Moist buccal mucosa. Head is atraumatic, normocephalic. ABDOMEN: Soft. Positive bowel sounds. No pain with palpation. NEUROLOGIC: Awake. Anxious. ASSESSMENT: 1. Abdominal pain 2. Marked wall thickening of cecum, possible malignancy versus nonspecific colitis PLAN: Trach management per Dr. Joy Continue NG to LIS Continue TPN Barium enema in the future to evaluate for possible cecal mass. Likely or Tuesday Nurse practitioner note has been reviewed by physician. Signing provider agrees with the documented findings, assessment, and plan of care. Objective - Vital Signs Vital signs: Vital Signs Temp 99.1 F 05/02/19 08:00 Pulse 103 H 05/02/19 10:00 Resp 13 05/02/19 10:00 BP 138/88 05/02/19 10:00 Pulse Ox 94 L 05/02/19 10:00 Intake & Output 05/01/19 05/02/19 05/02/19 18:59 06:59 18:59 Intake Total 1177 1575 460 Output Total 2685 1510 750 Balance -1508 65 -290 Weight 93.6 kg Intake: IV 236 1484 360 Amino Acid 5%-D15w+Lytes* 280 E* 1,000 ml @ 70 mls/hr IV .BY DURATION [facility] Rx#: [id number] Fat Emulsion 20% 250 ml 231 In Empty Bag 1 bag @ 21 mls/hr IV DAILY@1800 [facility] Rx#:[id number] Mvi, Adult No.4 with Vit 700 300 K 10 ml Trace (Conc-1Ml/ Dose) 1 ml Sodium Acetate 20 meq Potassium Chloride 20 meq Magnesium Sulfate gm 1 gm Potassium Phosphate 9 mmol In Amino Acid 5%- D15w 1,000 ml @ 100 mls/ hr IV .BY DURATION [facility] Rx #:[id number] Sodium Chloride 0.9% 1, 200 240 60 000 ml @ 20 mls/hr IV . Q24H [facility] Rx#:[id number] pressure bag 0.9 36 33 Intake, IV Titration 941 91 100 Amount Amino Acid 5%-D15w+Lytes* 700 70 E* 1,000 ml @ 70 mls/hr IV .BY DURATION [facility] Rx#: [id number] Fat Emulsion 20% 250 ml 21 21 In Empty Bag 1 bag @ 21 mls/hr IV DAILY@1800 [facility] Rx#:[id number] Mvi, Adult No.4 with Vit 120 K 10 ml Trace (Conc-1Ml/ Dose) 1 ml Potassium Chloride 30 meq In Amino Acid 5%-D15w+Lytes*E* 1, 000 ml @ 42 mls/hr IV . Q24H [facility] Rx#:[id number] Potassium Chloride 20 meq 100 In Water For Injection 1 100ml.bag @ 50 mls/hr IVPB Q2H [facility] Rx#: [id number] Potassium Chloride 20 meq 100 In Water For Injection 1 100ml.bag @ 50 mls/hr IVPB Q2H [facility] Rx#: [id number] Output: Gastric Drainage 1200 600 Urine 1485 1510 150 Other: Voiding Method Indwelling Catheter Indwelling Catheter Indwelling Catheter # Voids 1 ABP, PAP, CO, CI - Last Documented Arterial Blood Pressure 102/102 - Labs CBC & Chem 7: 05/02/19 06:00 05/02/19 06:00 Labs: Abnormal Lab Results - Last 24 Hours (Table) 05/01/19 05/01/19 05/01/19 Range/Units 11:49 17:50 20:37 WBC (3.8-10.6) k/uL Plt Count (150-450) k/uL Potassium 3.0 L (3.5-5.1) mmol/L BUN (9-20) mg/dL Creatinine (0.66-1.25) mg/dL Glucose (74-99) mg/dL POC Glucose (mg/dL) 153 H 154 H (75-99) mg/dL Calcium (8.4-10.2) mg/dL 05/01/19 05/02/19 05/02/19 Range/Units 23:04 05:55 06:00 WBC 12.6 H (3.8-10.6) k/uL Plt Count 465 H (150-450) k/uL Potassium (3.5-5.1) mmol/L BUN (9-20) mg/dL Creatinine (0.66-1.25) mg/dL Glucose (74-99) mg/dL POC Glucose (mg/dL) 188 H 163 H (75-99) mg/dL Calcium (8.4-10.2) mg/dL 05/02/19 Range/Units 06:00 WBC (3.8-10.6) k/uL Plt Count (150-450) k/uL Potassium 3.3 L (3.5-5.1) mmol/L BUN 39 H (9-20) mg/dL Creatinine 0.52 L (0.66-1.25) mg/dL Glucose 211 H (74-99) mg/dL POC Glucose (mg/dL) (75-99) mg/dL Calcium 10.9 H (8.4-10.2) mg/dL <Azam Aranda - Last Filed: 05/02/19 20:35> Subjective Patient doing better today. More alert. Following commands. We'll tentatively plan barium enema tomorrow. Objective - Vital Signs Vital signs: Vital Signs Temp 98.3 F 05/02/19 16:00 Pulse 89 05/02/19 19:00 Resp 23 05/02/19 19:00 BP 111/77 05/02/19 19:00 Pulse Ox 91 L 05/02/19 19:00 Intake & Output 05/02/19 05/02/19 05/03/19 06:59 18:59 06:59 Intake Total 1575 1660 Output Total 1510 1859 Balance 65 -199 Weight 93.6 kg 93.6 kg Intake: IV 1484 1560 Amino Acid 5%-D15w+Lytes* 280 E* 1,000 ml @ 70 mls/hr IV .BY DURATION [facility] Rx#: [id number] Fat Emulsion 20% 250 ml 231 In Empty Bag 1 bag @ 21 mls/hr IV DAILY@1800 [facility] Rx#:[id number] Mvi, Adult No.4 with Vit 700 1300 K 10 ml Trace (Conc-1Ml/ Dose) 1 ml Sodium Acetate 20 meq Potassium Chloride 20 meq Magnesium Sulfate gm 1 gm Potassium Phosphate 9 mmol In Amino Acid 5%- D15w 1,000 ml @ 100 mls/ hr IV .BY DURATION [facility] Rx #:[id number] Sodium Chloride 0.9% 1, 240 260 000 ml @ 20 mls/hr IV . Q24H [facility] Rx#:[id number] pressure bag 0.9 33 Intake, IV Titration 91 100 Amount Amino Acid 5%-D15w+Lytes* 70 E* 1,000 ml @ 70 mls/hr IV .BY DURATION [facility] Rx#: [id number] Fat Emulsion 20% 250 ml 21 In Empty Bag 1 bag @ 21 mls/hr IV DAILY@1800 [facility] Rx#:[id number] Potassium Chloride 20 meq 100 In Water For Injection 1 100ml.bag @ 50 mls/hr IVPB Q2H [facility] Rx#: [id number] Output: Gastric Drainage 600 Urine 1510 1259 Other: Voiding Method Indwelling Catheter Indwelling Catheter # Voids 1 ABP, PAP, CO, CI - Last Documented Arterial Blood Pressure 102/102 - Labs CBC & Chem 7: 05/02/19 06:00 05/02/19 06:00 Labs: Abnormal Lab Results - Last 24 Hours (Table) 05/01/19 05/01/19 05/02/19 Range/Units 20:37 23:04 05:55 WBC (3.8-10.6) k/uL Plt Count (150-450) k/uL Potassium 3.0 L (3.5-5.1) mmol/L BUN (9-20) mg/dL Creatinine (0.66-1.25) mg/dL Glucose (74-99) mg/dL POC Glucose (mg/dL) 188 H 163 H (75-99) mg/dL Calcium (8.4-10.2) mg/dL 05/02/19 05/02/19 05/02/19 Range/Units 06:00 06:00 12:01 WBC 12.6 H (3.8-10.6) k/uL Plt Count 465 H (150-450) k/uL Potassium 3.3 L (3.5-5.1) mmol/L BUN 39 H (9-20) mg/dL Creatinine 0.52 L (0.66-1.25) mg/dL Glucose 211 H (74-99) mg/dL POC Glucose (mg/dL) 130 H (75-99) mg/dL Calcium 10.9 H (8.4-10.2) mg/dL 05/02/19 Range/Units 17:16 WBC (3.8-10.6) k/uL Plt Count (150-450) k/uL Potassium (3.5-5.1) mmol/L BUN (9-20) mg/dL Creatinine (0.66-1.25) mg/dL Glucose (74-99) mg/dL POC Glucose (mg/dL) 172 H (75-99) mg/dL Calcium (8.4-10.2) mg/dL Assessment and Plan (1) Colitis Current Visit: Yes Status: Acute Code(s): K52.9 - NONINFECTIVE GASTROENTERITIS AND COLITIS, UNSPECIFIED SNOMED Code(s): 39425931
[2019-05-02 12:05] LABS: Glucose,Whole Blood 130 mg/dL (75-99)
--- NOTE | 2019-05-02 13:57 | P.PN ---
Subjective Progress Note Date: 05/02/19 Acute respiratory failure, aspiration pneumonia, severe abdominal pain, possible malignancy in the cecum, possible colitis, delirium tremor, urgent hypertension, COPD This is a 69-year-old male patient of Dr. Gallardo with past medical history of hypertension, hyperlipidemia, COPD, gastroesophageal reflux disease, remote history of tobacco use, obstructive sleep apnea not using CPAP. Patient complains of sudden onset of abdominal pain starting on Tuesday. He also complains of bloating in the abdomen for the past couple months as well as weight loss of 5-10 pounds over the past 3 months. He complains of decreased appetite. He states he has had occasional burgundy stools. He denies any black stools, no diarrhea, no vomiting. He denies any urinary symptoms. Patient states he had his last colonoscopy in 2013 which was normal. Patient presents to [facility] emergency center for evaluation. Abdominal x-ray shows no acute findings. CAT scan of the abdomen and pelvis showed marked thickening of the cecum concerning for malignancy. A nonspecific colitis is not excluded but felt to be less likely. Thickening in the gastric rugae which may be secondary to under distention versus a nonspecific gastritis. EKG is a sinus tachycardia with right bundle branch block, left AFB. WBC 16.7, hemoglobin 14.7, creatinine 0.74. Troponin negative. Amylase and lipase, liver function tests all normal. Urinalysis was clear with 1+ protein. Patient was admitted to the [facility] floor, consult with Dr. Givens, IV fluids, pain medications and Zofran. Plan is for colonoscopy tomorrow. 04/17: Overnight, patient developed acute respiratory failure and was transferred to the intensive care unit and patient placed on BiPAP, currently under care of Dr. Caballero. Patient subsequently intubated and placed on mechanical ventilation. Echocardiogram from yesterday reveals EF 55-60% with moderate concentric left ventricle hypertrophy, trace mitral regurgitation, trace tricuspid regurgitation, no pulmonary hypertension. No pericardial effusion. Chest x-ray shows new right basilar and pneumonic consolidation with diminished inspiration background right hilar and left basilar more patchy edema and or infiltrate felt present. Repeat chest x-ray shows new endotracheal tube with placement described with recommendations to pullback. Mild cardiomegaly and low lung volumes with bilateral hilar edema and/or infiltrate and right basilar consolidation all redemonstrated increasing left basilar infiltrate felt present. Abdomen was more distended and NG tube was placed. Immediate surgical consultation was requested by Dr. Caballero. Dr. Givens attempted bedside colonoscopy but patient was not properly prepped. He is scheduled for CAT scan of the abdomen and pelvis this afternoon at 2:30. NG tube is in place with bile color returned. Family members are in the waiting room and have been updated. 04/18: The patient remains in intensive care unit intubated and on mechanical ventilation. Vent settings have been decreased and no plan for sedation holiday today. He was weaned off norepinephrine this morning. Urine output has been 50-75 mL per hour. Noted that the Goldberg tube is pink but urine is alesia most likely a drug reaction. Patient has had several bowel movements this morning. Antibiotics have been switched to Zosyn and vancomycin. TSH 0.224 with normal free T4 at 1.24. Surgical consultation has been changed to Dr. Garvey per family wishes. 04/19: Patient remains in intensive care unit intubated and on mechanical ventilation. Patient has had increased purulent secretions and underwent reintubation by Dr. Caballero. He also perform bronchoscopy at the bedside and suction 20 ML's purulent material specimen was sent to the lab for cytology and culture. He is concern for ARDS. Patient is continued on Zosyn and vancomycin. He has been off vasopressors since yesterday morning. Patient has had a small amount of liquid stool today much decreased from yesterday. Dr. Garvey is on for surgery at this point. Patient is having minimal output from NG tube. Bowel sounds remain hypoactive. Consult has been added for GI regarding concern for ischemic colitis. 04/20: Patient remains intubated and on mechanical ventilation. Repeat chest x- ray shows continued mild to moderate heart failure. Small to moderate effusions with prominent bibasilar atelectasis and/or consolidation persists. Dr. Garvey is planning for bedside colonoscopy today. Patient was ordered for soapsuds enema last night and this morning. Tube feedings on hold. He has been afebrile, heart rate in the 50s and 60s, blood pressure 141/66. Pulse ox 99%. WBC 8.1, hemoglobin 11.2. Creatinine 0.65. Bronchial washing cytology is pending. Bronchial cultures in progress. Patient will need to start tube feedings or TPN depending on results of colonoscopy scheduled for this afternoon. Patient was given 1 dose of IV Lasix this morning and is diuresing well. Family in the waiting room have been updated. 04/21: Patient remains in the bed, FiO2 40%, PEEP of 6, NG tube has been placed and had taken out the OG tube, fecaloid billous contents are observed in the NG tube, bowel sounds are very diminished today, no bowel movements over the past 24 hours, x-rays of the abdomen will be done to evaluate for progressive bowel obstruction, patient remains to be afebrile, no leukocytosis bronchial washing cultures shows no normal zander vital signs are stable no hypotensive events, patient is slightly hypotensive on IV Solu-Medrol 40 every 8 04/23: Patient remains intubated and on mechanical ventilation. Dr. Dunham does not plan for attempt at weaning today. He is started him on hydralazine for blood pressure control. Patient has been started on TPN. On Tuesday, patient underwent colonoscopy with Dr. Garvey that revealed reticulosis, tortuous colon a nd recommends once patient is off ventilation to have barium enema to evaluate the ileocecal valve. Keep NG tube post extubation and hold tube feedings for now. No bowel movement today. 04/24: Patient had a rough night became significantly hypertensive, tachypneic and tachycardic. Patient was started on labetalol drip once other options were attempted without success and this was weaned off this morning. Patient also was placed on Nimbex and fentanyl drip which are to be weaned off today. Chest x-ray shows worsening interstitial infiltrates bilaterally and possible interstitial edema. Dr. Dunham increase Lasix to 40 mg IV push every 12 hours. Patient has not had a bowel movement. He remains on TPN and NG tube to suction. Urine output is adequate, tea-colored. Discussed yesterday the possibility of needing a trach and PEG with family members. At this time, Dr. Dunham would like to hold off. 04/25: Patient is still sedated on mechanical ventilation he had failed his weaning parameter today I want to see him when the and the son were in the room door tachycardia with Dr. dao about further plan. Pulmonary and from medicine standpoint patient most likely will need to go to trach no PEG tube can be done for now expected the plan probably for Tuesday and from thereon if more stable can go for his barium enema to come with final diagnosis of the tumor or the finding in the cecum and the large intestine and from thereon further management can be planned. Patient still on multiple drips for pain management let pressure TPN and DT. 04/26: A Chin still on mechanical ventilation, sedated, he is slightly bit awaking when backing off on sedation is still very agitated between having quite bed elevated blood pressure and pulse rate did not succeed on weaning parameter and most likely he will need tracheostomy by tomorrow. PEG tube is negative be possible at this point because of the possibility of mass in the cecum with obstruction cankerous problem if he is more stable can go for barium enema and then PEG tube if there is no cecal mass likely his CEA came back negative. 04/27 patient examined bedside currently intubated D 10. Patient came in with abdominal pain, nausea, vomiting followed by a respiratory failure the next day leading to intubation. Patient is found to be agitated him on ventilator. Currently requiring 75 mics of propofol. On vital evaluation patient had a heart rate of 77 respiratory rate 26 blood pressure 159/62 on clear with pain d rip abdominal x-ray this morning shows nonspecific bowel pattern with the bilateral pleural effusion chest x-ray suggestive of pulmonary edema versus consolidation. Patient is currently on Lasix 40 mg IV twice a day and making good urine output 75 mL per hour. Blood cultures so far negative. Bronchoscopy results are negative so far. Plan for tracheostomy placement today. PEG tube is on hold until further information about the cecal mass/colitis. 04/28: Examined at bedside currently on CPAP. Patient was on a sedation holiday for approximately 1 hour sedation has been increased due to fatigue and agitation. Vital signs have been stable blood pressure 151/60 pulse ox a 97% on CPAP pulse rate 98. Patient was able to follow commands however weak. Patient was able to nod head and answer actions appropriately. Family at the bedside discussing plan of care. Continue nutritional support with TPN. 04/29: Patient examined bedside currently on CPAP tolerating. Patient is more alert today compared to yesterday. Patient is able to follow commands movements are weak and nods head appropriately to questions. Patient is on propofol at 10 at this time. She was on a sedation holiday however heart rate and blood pressure increase. Urinary output approximately 60-70 ML's per hour. Patient has not had a bowel movement continues with NG suction approximately 600-700 ML's output in 24 hours. 04/30: Patient is sitting up in bed does appear in less distress today he continues to have the trach in place we're trying to the patient on the ventilator hopefully he will be on trach collar tomorrow morning, family were at the bedside and updated about his situation he will be weaned off sedation completely liver on today he does not appear to be in acute distress at this time, we will hold off transfer the patient until after he weaned off. 05/01: Patient is sitting up in bed he is more awake and more alert is moving all his extremities currently has a trach collar in place, he continued to follow commands appropriately, his family were at the bedside and updated about his current situation. 05/02: Patient is sitting up in bed he continues to have ended in place, he continues to have the trach collar in place, is moving all his extremities, he is feeling better today he has no abdominal pain, he has not passed any gas and he has not had a bowel movement. Review of systems: Constitutional: Generalized weakness, follow simple commands only. HEENT: No headache, blurred vision, positive for dysphagia, positive for tracheostomy. Cardiovascular: Palpitation, no chest pain, appears to be somewhat short of breath, no edema, mild minimal coughing, Respiratory: Minimal cough, tachypnea, shortness breath, no pleurisy. Gastrointestinal: No abdominal pain, nausea, vomiting, no bowel movement. Genitourinary: Goldberg catheter in place. Behavioral: Withdrawn, generally weak. Objective - Vital Signs Vital signs: Vital Signs Temp 99.1 F 05/02/19 08:00 Pulse 103 H 05/02/19 10:00 Resp 13 05/02/19 10:00 BP 138/88 05/02/19 10:00 Pulse Ox 94 L 05/02/19 10:00 Intake & Output 05/01/19 05/02/19 05/02/19 18:59 06:59 18:59 Intake Total 1177 1575 460 Output Total 2685 1510 750 Balance -1508 65 -290 Weight 93.6 kg 93.6 kg Intake: IV 236 1484 360 Amino Acid 5%-D15w+Lytes* 280 E* 1,000 ml @ 70 mls/hr IV .BY DURATION [facility] Rx#: [id number] Fat Emulsion 20% 250 ml 231 In Empty Bag 1 bag @ 21 mls/hr IV DAILY@1800 [facility] Rx#:[id number] Mvi, Adult No.4 with Vit 700 300 K 10 ml Trace (Conc-1Ml/ Dose) 1 ml Sodium Acetate 20 meq Potassium Chloride 20 meq Magnesium Sulfate gm 1 gm Potassium Phosphate 9 mmol In Amino Acid 5%- D15w 1,000 ml @ 100 mls/ hr IV .BY DURATION [facility] Rx #:[id number] Sodium Chloride 0.9% 1, 200 240 60 000 ml @ 20 mls/hr IV . Q24H [facility] Rx#:[id number] pressure bag 0.9 36 33 Intake, IV Titration 941 91 100 Amount Amino Acid 5%-D15w+Lytes* 700 70 E* 1,000 ml @ 70 mls/hr IV .BY DURATION [facility] Rx#: [id number] Fat Emulsion 20% 250 ml 21 21 In Empty Bag 1 bag @ 21 mls/hr IV DAILY@1800 [facility] Rx#:[id number] Mvi, Adult No.4 with Vit 120 K 10 ml Trace (Conc-1Ml/ Dose) 1 ml Potassium Chloride 30 meq In Amino Acid 5%-D15w+Lytes*E* 1, 000 ml @ 42 mls/hr IV . Q24H [facility] Rx#:[id number] Potassium Chloride 20 meq 100 In Water For Injection 1 100ml.bag @ 50 mls/hr IVPB Q2H [facility] Rx#: [id number] Potassium Chloride 20 meq 100 In Water For Injection 1 100ml.bag @ 50 mls/hr IVPB Q2H [facility] Rx#: [id number] Output: Gastric Drainage 1200 600 Urine 1485 1510 150 Other: Voiding Method Indwelling Catheter Indwelling Catheter Indwelling Catheter # Voids 1 ABP, PAP, CO, CI - Last Documented Arterial Blood Pressure 102/102 - Exam Neck HEENT: trach in with no lymph node enlargement no bruits.. Lungs: Decreased breath some bilateral rhonchi positive mild expiratory wheezes. Chest Wall: Decrease expansion with deep inspiration no tenderness and no deformity was found on exam, no costochondral pain or discomfort. Heart: Regular rate and rhythm, S1, S2, positive S3 positive tachycardia., no murmur, rub or gallop. Back: Symmetric, no curvature, ROM normal, no CVA tenderness. Abdomen: Soft distended positive bowel sound not able to feel any organomegaly no rebound or rigidity. Extremities: Extremities normal, atraumatic, no cyanosis or edema. Pulses: 2+ and symmetric. Skin: Skin color, texture, tugor normal, no rashes or lesions. Neurologic: awake , drowzy follow simple commands, extremely weak. - Labs CBC & Chem 7: 05/04/19 04:20 05/04/19 04:20 Labs: Abnormal Lab Results - Last 24 Hours (Table) 05/01/19 05/01/19 05/01/19 Range/Units 11:49 17:50 20:37 WBC (3.8-10.6) k/uL Plt Count (150-450) k/uL Potassium 3.0 L (3.5-5.1) mmol/L BUN (9-20) mg/dL Creatinine (0.66-1.25) mg/dL Glucose (74-99) mg/dL POC Glucose (mg/dL) 153 H 154 H (75-99) mg/dL Calcium (8.4-10.2) mg/dL 05/01/19 05/02/19 05/02/19 Range/Units 23:04 05:55 06:00 WBC 12.6 H (3.8-10.6) k/uL Plt Count 465 H (150-450) k/uL Potassium (3.5-5.1) mmol/L BUN (9-20) mg/dL Creatinine (0.66-1.25) mg/dL Glucose (74-99) mg/dL POC Glucose (mg/dL) 188 H 163 H (75-99) mg/dL Calcium (8.4-10.2) mg/dL 05/02/19 Range/Units 06:00 WBC (3.8-10.6) k/uL Plt Count (150-450) k/uL Potassium 3.3 L (3.5-5.1) mmol/L BUN 39 H (9-20) mg/dL Creatinine 0.52 L (0.66-1.25) mg/dL Glucose 211 H (74-99) mg/dL POC Glucose (mg/dL) (75-99) mg/dL Calcium 10.9 H (8.4-10.2) mg/dL Assessment and Plan Assessment: Assessment and Plan Plan: 1. acute respiratory failure secondary to aspiration pneumonia post Trach , currently on trach collar, continue aggressive pulmonary toileting continue to monitor the patient very closely. 2. acute aspiration pneumonia: Remain on mechanical ventilation still on gram- negative coverage with Zosyn and vancomycin for now continue Solu-Medrol and updraft treatment. Repeat chest x-ray shows continuing changes of congestive heart failure 3. COPD: With mild exacerbation: Continue Solu-Medrol, continue O2 continue updraft treatment. 4. abdominal pain: With possible obstruction versus colitis versus malignancy in the cecum still seen Dr. garvey continue antibiotics barium study plan once patient is extubated or stable to be able to do the test. CEA was very low which still not extremity confirmative for no cancer. Abdominal x-ray shows nonspecific abdomen. No dilated bowel loops. There seen in the rectum. Bilateral infiltrate and pleural effusion. 5. delirium tremens. Resolved. 6. Accelerated hypertension. Better we will continue with current BP management. 7. obstructive sleep apnea . Status post tracheostomy. 8. Possible septicemia. Blood culture initially showed coagulase-negative staph his is likely contamination, patient was on IV antibiotic in the form of vancomycin and Zosyn currently is off. 9. type 2 diabetes: On insulin currently including insulin drip if needed cont inue to watch blood sugar to keep it below 150. 10. GI prophylaxis/severe GERD on pantoprazole IV. 11. DVT prophylaxis: Patient remain on Lovenox. 12. Medical debility. Continue to improve physical therapy evaluation is in order.
[2019-05-02] MEDS: HYDROmorphone 0.5 MG/0.5 ML SYRINGE IVP PRN ×2 (14:09→17:03)
[2019-05-02] MEDS: SODIUM CHLORIDE 0.9% 1,000 ML IV SCH (14:17)
[2019-05-02 17:42] LABS: Glucose,Whole Blood 172 mg/dL (75-99)
[2019-05-02] MEDS: FAT EMULSION 20% 250 ML in EMPTY BAG 1 BAG IV SCH (18:02)
[2019-05-02] MEDS ORDERED: HYDROmorphone 0.5 MG/0.5 ML SYRINGE IVP ONE (18:11)
[2019-05-02 23:35] LABS: Glucose,Whole Blood 155 mg/dL (75-99)
[2019-05-03] MEDS: INSULIN ASPART (NovoLOG) 100 UNIT/ML VIAL SQ SCH ×4 (00:14→19:14)
[2019-05-03] MEDS: FUROSEMIDE 10 MG/ML 4 ML VIAL IV SCH ×3 (00:14→17:24)
[2019-05-03] MEDS: HYDROmorphone 0.5 MG/0.5 ML SYRINGE IVP PRN ×7 (00:15→20:13)
[2019-05-03] MEDS: IPRATROPIUM-ALBUTEROL 3 ML NEB INHALATION SCH ×5 (03:05→19:54)
[2019-05-03 05:26] LABS: HCT 50.6 % (39.0-53.0); MCH 30.1 pg (25.0-35.0); MCHC 31.7 g/dL (31.0-37.0); MCV 94.9 fL (80.0-100.0); Mean Platelet Volume 7.3; Platelet Count 429 k/uL (150-450); RBC 5.33 m/uL (4.30-5.90); RDW 13.3 % (11.5-15.5); WBC 12.7 k/uL (3.8-10.6)
[2019-05-03 05:36] LABS: African American GFR (CKD) >90 (>60 ml/min/1.73 sqM); Anion Gap 14 mmol/L; Blood Urea Nitrogen 42 mg/dL (9-20); Calcium 10.9 mg/dL (8.4-10.2); Carbon Dioxide 26 mmol/L (22-30); Chloride 104 mmol/L (98-107); Glucose 189 mg/dL (74-99); Magnesium 2.3 mg/dL (1.6-2.3); Potassium 3.2 mmol/L (3.5-5.1); Sodium 144 mmol/L (137-145)
[2019-05-03 05:43] LABS: Glucose,Whole Blood 181 mg/dL (75-99)
[2019-05-03] MEDS: LORazepam 2 MG/ML INJ IV PRN (05:59)
[2019-05-03] MEDS: POTASSIUM CHLORIDE 20 MEQ in WATER FOR INJECTION 1 100ML.BAG IVPB SCH ×4 (06:00→17:24)
--- NOTE | 2019-05-03 07:44 | XR ---
EXAMINATION TYPE: XR chest 1V portable DATE OF EXAM: 05/03/2019 COMPARISON: Prior chest x-ray 05/02/2019 HISTORY: Shortness of breath TECHNIQUE: Single frontal view of the chest is obtained. FINDINGS: Left subclavian central venous catheter shows the distal tip overlying superior vena cava. No pneumothorax or pleural effusion. Heart size is stable. There is mixed interstitial and alveolar increased density within the lungs. Tracheostomy tube is stable. IMPRESSION: Correlate for congestive heart failure, pneumonia not excluded.
[2019-05-03] MEDS: PANTOPRAZOLE 40 MG/10 ML VIAL IV SCH (08:40)
[2019-05-03] MEDS: HEPARIN SODIUM,PORCINE 5,000 UNIT/ML 1 ML VIAL SQ SCH ×2 (08:40→20:13)
--- NOTE | 2019-05-03 10:47 | PN ---
PROGRESS NOTE DATE OF SERVICE: 05/03/2019 A 69-year-old male who was admitted way back on April 15 with an episode of colitis and abdominal pain. He apparently had an episode of aspiration on April 17, for that reason, developed hypoxemic respiratory failure. It required intubation and mechanical ventilation. He did not wean initially, and on April 27, 10 days after intubation, he had a tracheostomy performed. More recently, he has progressed very nicely. He is on trach collar. He has been on trach collar 28% for at least 48 hours. He is scheduled for a barium enema today as his abdomen has never been fully evaluated. The patient is going to have the incentive spirometer added to his regimen. In addition, will back off on his updrafts from every 4 hours to q.i.d. and p.r.n. Other than that, he is doing relatively well. I did speak to Dr. Aranda about him. He is awake and alert. He is lying in bed. He seems to be doing relatively well. Vital signs reviewed. Temperature is a 100, heart rate 100, respiratory rate 24, blood pressure 112/86 mean 94 and saturations are 97% on the 28% trach collar. Appears in no acute distress. HEENT: Examination is grossly unremarkable. There is an NG tube in place. NECK: Supple. Full range of motion. There is a midline tracheostomy. No neck vein distention. CARDIOVASCULAR: Examination reveals mild tachycardia. Heart rate about 100. S1, S2 normal. LUNGS: Reveal coarse scattered rhonchi. Breath sounds are equal bilaterally. No wheezes or crackles. ABDOMEN: Soft. No tenderness on palpation. Bowel sounds are noted. EXTREMITIES: Intact. No cyanosis, clubbing, or edema. SKIN: Without rash. NEUROLOGIC: Examination is brief but nonfocal. Chest x-ray shows changes of mild fluid overload. Microbiologic studies show only coag-negative Staph back on April 17. LABORATORY DATA: Includes a white count of 12.7, hemoglobin 16, hematocrit 50.6, platelet count 429,000. Sodium 144, potassium 3.2, chloride 104, CO2 is 26, anion gap 14. BUN and creatinine were 42 and 0.61, consistent with prerenal azotemia. Medications are reviewed. They appear to be appropriate. Again, the patient is only on TPN at 100 mL an hour and trach collar at 28%. ASSESSMENT: 1. Acute hypoxemic and hypercapnic respiratory failure, secondary to bilateral aspiration pneumonia as well as development of acute respiratory distress syndrome. Both of these have improved. 2. Status post tracheostomy on April 27, secondary to failure to wean. 3. Previous mechanical ventilation beginning on April 17 for acute respiratory failure, and aspiration pneumonia, now weaned to trach collar. 4. Acute colitis with possible cecal mass and abdominal distention. 5. Benign essential hypertension. 6. History of alcohol abuse. 7. Sleep apnea syndrome. 8. Abdominal pain secondary to colitis. 9. History of gastroesophageal reflux disease. 10.Type 2 diabetes mellitus. PLAN: The patient is doing reasonably well. He has been on trach collar for more than 48 hours. The patient is getting TPN at 100 mL an hour. He is going to have a barium enema today. The patient will need incentive spirometer. Back office updrafts from q.4 to q.i.d. No additional recommendations are made. Prognosis is guarded. Will continue to follow closely. Additional recommendations and suggestions are forthcoming. MMODL / IJN: [id number] /
[2019-05-03] MEDS: LABETALOL 200 MG in SODIUM CHLORIDE 0.9% 160 ML IV SCH (10:57)
[2019-05-03] MEDS: VANCOMYCIN 2,000 MG in SODIUM CHLORIDE 0.9% 500 ML 500 ML IVPB SCH (10:57)
[2019-05-03] MEDS: methylPREDNISolone SOD SUCCI 40 MG/ML 1 ML VIAL IV SCH (10:57)
--- NOTE | 2019-05-03 11:04 | P.PN ---
<Gabriela Jaimes Himanshu - Last Filed: 05/03/19 11:02> Subjective Progress Note Date: 05/03/19 CHIEF COMPLAINT: Abdominal pain HISTORY OF PRESENT ILLNESS: Patient remains in the ICU. He has been on trach collar and tolerating well. He denies abdominal pain. NG to LIS with bilious drainage. TPN is infusing. PHYSICAL EXAM: VITAL SIGNS: Reviewed. GENERAL: Well-developed. HEENT: NG to LIS. Trach site without bleeding or signs of infection. No sclera icterus. Extraocular movements grossly intact. Moist buccal mucosa. Head is atraumatic, normocephalic. ABDOMEN: Soft. Positive bowel sounds. No pain with palpation. NEUROLOGIC: Awake. Anxious. ASSESSMENT: 1. Abdominal pain 2. Marked wall thickening of cecum, possible malignancy versus nonspecific colitis PLAN: Trach management per Dr. Joy Continue NG to LIS Continue TPN Barium enema scheduled for today. Await results. Nurse practitioner note has been reviewed by physician. Signing provider agrees with the documented findings, assessment, and plan of care. Objective - Vital Signs Vital signs: Vital Signs Temp 100 F H 05/03/19 08:00 Pulse 112 H 05/03/19 10:00 Resp 18 05/03/19 10:00 BP 124/85 05/03/19 10:00 Pulse Ox 97 05/03/19 10:00 Intake & Output 05/02/19 05/03/19 05/03/19 18:59 06:59 18:59 Intake Total 1660 1671 460 Output Total 1859 1390 180 Balance -199 281 280 Weight 93.6 kg 94 kg Intake: IV 1560 1671 260 Fat Emulsion 20% 250 ml 231 In Empty Bag 1 bag @ 21 mls/hr IV DAILY@1800 [facility] Rx#:[id number] Mvi, Adult No.4 with Vit 1300 1200 200 K 10 ml Trace (Conc-1Ml/ Dose) 1 ml Sodium Acetate 20 meq Potassium Chloride 20 meq Magnesium Sulfate gm 1 gm Potassium Phosphate 9 mmol In Amino Acid 5%- D15w 1,000 ml @ 100 mls/ hr IV .BY DURATION [facility] Rx #:[id number] Sodium Chloride 0.9% 1, 260 240 60 000 ml @ 20 mls/hr IV . Q24H [facility] Rx#:[id number] Intake, IV Titration 100 200 Amount Potassium Chloride 20 meq 100 In Water For Injection 1 100ml.bag @ 50 mls/hr IVPB Q2H [facility] Rx#: [id number] Potassium Chloride 20 meq 100 In Water For Injection 1 100ml.bag @ 50 mls/hr IVPB Q2H [facility] Rx#: [id number] Sodium Acetate 20 meq 100 Potassium Chloride 20 meq Magnesium Sulfate gm 1 gm Potassium Phosphate 9 mmol In Amino Acid 5%- D15w 1,000 ml @ 100 mls/ hr IV .BY DURATION E[facility] Rx #:[id number] Output: Gastric Drainage 600 Urine 1259 1390 180 Other: Voiding Method Indwelling Catheter Indwelling Catheter Indwelling Catheter # Voids 1 ABP, PAP, CO, CI - Last Documented Arterial Blood Pressure 102/102 - Labs CBC & Chem 7: 05/03/19 04:21 05/03/19 04:21 Labs: Abnormal Lab Results - Last 24 Hours (Table) 05/02/19 05/02/19 05/02/19 Range/Units 12:01 17:16 23:32 WBC (3.8-10.6) k/uL Potassium (3.5-5.1) mmol/L BUN (9-20) mg/dL Creatinine (0.66-1.25) mg/dL Glucose (74-99) mg/dL POC Glucose (mg/dL) 130 H 172 H 155 H (75-99) mg/dL Calcium (8.4-10.2) mg/dL 05/03/19 05/03/19 05/03/19 Range/Units 04:21 04:21 05:31 WBC 12.7 H (3.8-10.6) k/uL Potassium 3.2 L (3.5-5.1) mmol/L BUN 42 H (9-20) mg/dL Creatinine 0.61 L (0.66-1.25) mg/dL Glucose 189 H (74-99) mg/dL POC Glucose (mg/dL) 181 H (75-99) mg/dL Calcium 10.9 H (8.4-10.2) mg/dL <Azam Aranda - Last Filed: 05/03/19 15:22> Subjective As above. Patient doing well today. No abdominal pain. Abdominal examination benign. Spoke with Dr. Arias regarding barium enema. No resistance to flow of contrast into the terminal ileum. Questionable irregularity to the mucosa of the cecum still identified on barium enema. We'll remove nasogastric tube. Bedside swallow evaluation. If that is okay we'll start clears. Discussed options with family. I may ask Dr. Barbosa to consider reattempts at colonoscopy in the short-term. Objective - Vital Signs Vital signs: Vital Signs Temp 100 F H 05/03/19 08:00 Pulse 102 H 05/03/19 15:07 Resp 18 05/03/19 15:07 BP 124/85 05/03/19 10:00 Pulse Ox 97 05/03/19 10:00 Intake & Output 05/02/19 05/03/19 05/03/19 18:59 06:59 18:59 Intake Total 1660 1671 460 Output Total 1859 1390 180 Balance -199 281 280 Weight 93.6 kg 94 kg Intake: IV 1560 1671 260 Fat Emulsion 20% 250 ml 231 In Empty Bag 1 bag @ 21 mls/hr IV DAILY@1800 [facility] Rx#:[id number] Mvi, Adult No.4 with Vit 1300 1200 200 K 10 ml Trace (Conc-1Ml/ Dose) 1 ml Sodium Acetate 20 meq Potassium Chloride 20 meq Magnesium Sulfate gm 1 gm Potassium Phosphate 9 mmol In Amino Acid 5%- D15w 1,000 ml @ 100 mls/ hr IV .BY DURATION E[facility] Rx #:[id number] Sodium Chloride 0.9% 1, 260 240 60 000 ml @ 20 mls/hr IV . Q24H [facility] Rx#:[id number] Intake, IV Titration 100 200 Amount Potassium Chloride 20 meq 100 In Water For Injection 1 100ml.bag @ 50 mls/hr IVPB Q2H [facility] Rx#: [id number] Potassium Chloride 20 meq 100 In Water For Injection 1 100ml.bag @ 50 mls/hr IVPB Q2H [facility] Rx#: [id number] Sodium Acetate 20 meq 100 Potassium Chloride 20 meq Magnesium Sulfate gm 1 gm Potassium Phosphate 9 mmol In Amino Acid 5%- D15w 1,000 ml @ 100 mls/ hr IV .BY DURATION E[facility] Rx #:[id number] Output: Gastric Drainage 600 Urine 1259 1390 180 Other: Voiding Method Indwelling Catheter Indwelling Catheter Indwelling Catheter # Voids 1 ABP, PAP, CO, CI - Last Documented Arterial Blood Pressure 102/102 - Labs CBC & Chem 7: 05/03/19 04:21 05/03/19 13:36 Labs: Abnormal Lab Results - Last 24 Hours (Table) 05/02/19 05/02/19 05/03/19 Range/Units 17:16 23:32 04:21 WBC (3.8-10.6) k/uL Potassium 3.2 L (3.5-5.1) mmol/L BUN 42 H (9-20) mg/dL Creatinine 0.61 L (0.66-1.25) mg/dL Glucose 189 H (74-99) mg/dL POC Glucose (mg/dL) 172 H 155 H (75-99) mg/dL Calcium 10.9 H (8.4-10.2) mg/dL 05/03/19 05/03/19 05/03/19 Range/Units 04:21 05:31 11:53 WBC 12.7 H (3.8-10.6) k/uL Potassium (3.5-5.1) mmol/L BUN (9-20) mg/dL Creatinine (0.66-1.25) mg/dL Glucose (74-99) mg/dL POC Glucose (mg/dL) 181 H 167 H (75-99) mg/dL Calcium (8.4-10.2) mg/dL 05/03/19 Range/Units 13:36 WBC (3.8-10.6) k/uL Potassium 3.4 L (3.5-5.1) mmol/L BUN (9-20) mg/dL Creatinine (0.66-1.25) mg/dL Glucose (74-99) mg/dL POC Glucose (mg/dL) (75-99) mg/dL Calcium (8.4-10.2) mg/dL Assessment and Plan (1) Colitis Current Visit: Yes Status: Acute Code(s): K52.9 - NONINFECTIVE GASTROENTERITIS AND COLITIS, UNSPECIFIED SNOMED Code(s): 04688157
[2019-05-03 11:54] LABS: Glucose,Whole Blood 167 mg/dL (75-99)
--- NOTE | 2019-05-03 12:15 | FL ---
EXAMINATION TYPE: FL barium enema DATE OF EXAM: 05/03/2019 COMPARISON: Correlation CT 04/17/2019 and 04/15/2019 HISTORY: 69-year-old male evaluate for cecal mass/obstruction TECHNIQUE: A single contrast barium enema study is performed. FINDINGS: [employer] view of the abdomen shows overall non-obstructive bowel gas pattern. An NG tube is present. Deg enerated levoconvex scoliosis. There is prominent distention of the rectum and distal sigmoid colon upon administration of the bariu m. There is proximal to mid sigmoid diverticulosis. Limited distention of the transverse colon and de scending colon. Contrast is seen reaching the cecum and refluxing multiple distal ileal small bowel loops. No evident constricting lesion is identified and there is limited visualization of the ileocecal valv e. However, the cecum has slightly irregular contour on multiple images. However, this is a very subt le finding and may have been better demonstrated on the patient's CT scan. The radiographic overheads performed by the technologist are very motion limited. IMPRESSION: 1. Limited single contrast barium enema. The radiographic overheads performed by the technologist in particular are very motion limited. 2. Limited distention of the left side of the colon. There is proximal to mid sigmoid diverticulosis. 3. Barium reaches the cecum and refluxes multiple distal ileal loops. There is subtle contour irregul arity of the cecum and a mucosal lesion or colitis here is difficult to exclude. No frankly constrict ing lesion is seen.
[2019-05-03] MEDS: SODIUM CHLORIDE 0.9% 1,000 ML IV SCH (12:51)
--- NOTE | 2019-05-03 14:20 | P.PN ---
<Destini Navarro A - Last Filed: 05/03/19 14:11> Subjective Progress Note Date: 05/03/19 This is a 69-year-old male patient of Dr. Gallardo with past medical history of hypertension, hyperlipidemia, COPD, gastroesophageal reflux disease, remote history of tobacco use, obstructive sleep apnea not using CPAP. Patient complains of sudden onset of abdominal pain starting on Tuesday. He also complains of bloating in the abdomen for the past couple months as well as weight loss of 5-10 pounds over the past 3 months. He complains of decreased appetite. He states he has had occasional burgundy stools. He denies any black stools, no diarrhea, no vomiting. He denies any urinary symptoms. Patient states he had his last colonoscopy in 2013 which was normal. Patient presents to [facility] emergency center for evaluation. Abdominal x-ray shows no acute findings. CAT scan of the abdomen and pelvis showed marked thickening of the cecum concerning for malignancy. A nonspecific colitis is not excluded but felt to be less likely. Thickening in the gastric rugae which may be secondary to under distention versus a nonspecific gastritis. EKG is a sinus tachycardia with right bundle branch block, left AFB. WBC 16.7, hemoglobin 14.7, creatinine 0.74. Troponin negative. Amylase and lipase, liver function tests all normal. Urinalysis was clear with 1+ protein. Patient was admitted to the [facility] floor, consult with Dr. Givens, IV fluids, pain medications and Zofran. Plan is for colonoscopy tomorrow. 04/17: Overnight, patient developed acute respiratory failure and was transferred to the intensive care unit and patient placed on BiPAP, currently under care of Dr. Caballero. Patient subsequently intubated and placed on mechanical ventilation. Echocardiogram from yesterday reveals EF 55-60% with moderate concentric left ventricle hypertrophy, trace mitral regurgitation, trace tricuspid regurgitation, no pulmonary hypertension. No pericardial effusion. Chest x-ray shows new right basilar and pneumonic consolidation with diminished inspiration background right hilar and left basilar more patchy edema and or infiltrate felt present. Repeat chest x-ray shows new endotracheal tube with placement described with recommendations to pullback. Mild cardiomegaly and low lung volumes with bilateral hilar edema and/or infiltrate and right basilar consolidation all redemonstrated increasing left basilar infiltrate felt present. Abdomen was more distended and NG tube was placed. Immediate surgical consultation was requested by Dr. Caballero. Dr. Givens attempted bedside colonoscopy but patient was not properly prepped. He is scheduled for CAT scan of the abdomen and pelvis this afternoon at 2:30. NG tube is in place with bile color returned. Family members are in the waiting room and have been updated. 04/18: The patient remains in intensive care unit intubated and on mechanical ventilation. Vent settings have been decreased and no plan for sedation holiday today. He was weaned off norepinephrine this morning. Urine output has been 50-75 mL per hour. Noted that the Goldberg tube is pink but urine is alesia most likely a drug reaction. Patient has had several bowel movements this morning. Antibiotics have been switched to Zosyn and vancomycin. TSH 0.224 with normal free T4 at 1.24. Surgical consultation has been changed to Dr. Aranda per family wishes. 04/19: Patient remains in intensive care unit intubated and on mechanical ventilation. Patient has had increased purulent secretions and underwent reintubation by Dr. Caballero. He also perform bronchoscopy at the bedside and suction 20 ML's purulent material specimen was sent to the lab for cytology and culture. He is concern for ARDS. Patient is continued on Zosyn and vancomycin. He has been off vasopressors since yesterday morning. Patient has had a small amount of liquid stool today much decreased from yesterday. Dr. Aranda is on for surgery at this point. Patient is having minimal output from NG tube. Bowel sounds remain hypoactive. Consult has been added for GI regarding concern for ischemic colitis. 04/20: Patient remains intubated and on mechanical ventilation. Repeat chest x- ray shows continued mild to moderate heart failure. Small to moderate effusions with prominent bibasilar atelectasis and/or consolidation persists. Dr. Aranda is planning for bedside colonoscopy today. Patient was ordered for soapsuds enema last night and this morning. Tube feedings on hold. He has been afebrile, heart rate in the 50s and 60s, blood pressure 141/66. Pulse ox 99%. WBC 8.1, hemoglobin 11.2. Creatinine 0.65. Bronchial washing cytology is pending. Bronchial cultures in progress. Patient will need to start tube feedings or TPN depending on results of colonoscopy scheduled for this afternoon. Patient was given 1 dose of IV Lasix this morning and is diuresing well. Family in the waiting room have been updated. 04/21: Patient remains in the bed, FiO2 40%, PEEP of 6, NG tube has been placed and had taken out the OG tube, fecaloid billous contents are observed in the NG tube, bowel sounds are very diminished today, no bowel movements over the past 24 hours, x-rays of the abdomen will be done to evaluate for progressive bowel obstruction, patient remains to be afebrile, no leukocytosis bronchial washing cultures shows no normal zander vital signs are stable no hypotensive events, patient is slightly hypotensive on IV Solu-Medrol 40 every 8 04/23: Patient remains intubated and on mechanical ventilation. Dr. Dunham does not plan for attempt at weaning today. He is started him on hydralazine for blood pressure control. Patient has been started on TPN. On Tuesday, patient underwent colonoscopy with Dr. Aranda that revealed reticulosis, tortuous colon and recommends once patient is off ventilation to have barium enema to evaluate the ileocecal valve. Keep NG tube post extubation and hold tube feedings for now. No bowel movement today. 04/24: Patient had a rough night became significantly hypertensive, tachypneic and tachycardic. Patient was started on labetalol drip once other options were attempted without success and this was weaned off this morning. Patient also was placed on Nimbex and fentanyl drip which are to be weaned off today. Chest x-ray shows worsening interstitial infiltrates bilaterally and possible interstitial edema. Dr. Dunham increase Lasix to 40 mg IV push every 12 hours. Patient has not had a bowel movement. He remains on TPN and NG tube to suction. Urine output is adequate, tea-colored. Discussed yesterday the possibility of needing a trach and PEG with family members. At this time, Dr. Dunham would like to hold off. 04/25: Patient is still sedated on mechanical ventilation he had failed his weaning parameter today I want to see him when the and the son were in the room door tachycardia with Dr. dao about further plan. Pulmonary and from medicine standpoint patient most likely will need to go to trach no PEG tube can be done for now expected the plan probably for Tuesday and from thereon if more stable can go for his barium enema to come with final diagnosis of the tumor or the finding in the cecum and the large intestine and from thereon further management can be planned. Patient still on multiple drips for pain management let pressure TPN and DT. 04/26: A Chin still on mechanical ventilation, sedated, he is slightly bit awaking when backing off on sedation is still very agitated between having quite bed elevated blood pressure and pulse rate did not succeed on weaning parameter and most likely he will need tracheostomy by tomorrow. PEG tube is negative be possible at this point because of the possibility of mass in the cecum with obstruction cankerous problem if he is more stable can go for barium enema and then PEG tube if there is no cecal mass likely his CEA came back negative. 04/27 patient examined bedside currently intubated D 10. Patient came in with abdominal pain, nausea, vomiting followed by a respiratory failure the next day leading to intubation. Patient is found to be agitated him on ventilator. Currently requiring 75 mics of propofol. On vital evaluation patient had a heart rate of 77 respiratory rate 26 blood pressure 159/62 on clear with pain drip abdominal x-ray this morning shows nonspecific bowel pattern with the bilateral pleural effusion chest x-ray suggestive of pulmonary edema versus consolidation. Patient is currently on Lasix 40 mg IV twice a day and making good urine output 75 mL per hour. Blood cultures so far negative. Bronchoscopy results are negative so far. Plan for tracheostomy placement today. PEG tube is on hold until further information about the cecal mass/colitis. 04/28: Examined at bedside currently on CPAP. Patient was on a sedation holiday for approximately 1 hour sedation has been increased due to fatigue and agitation. Vital signs have been stable blood pressure 151/60 pulse ox a 97% on CPAP pulse rate 98. Patient was able to follow commands however weak. Patient was able to nod head and answer actions appropriately. Family at the bedside discussing plan of care. Continue nutritional support with TPN. 04/29: Patient examined bedside currently on CPAP tolerating. Patient is more alert today compared to yesterday. Patient is able to follow commands movements are weak and nods head appropriately to questions. Patient is on propofol at 10 at this time. She was on a sedation holiday however heart rate and blood pressure increase. Urinary output approximately 60-70 ML's per hour. Patient has not had a bowel movement continues with NG suction approximately 600-700 ML's output in 24 hours. 04/30: Patient is sitting up in bed does appear in less distress today he continues to have the trach in place we're trying to the patient on the ventilator hopefully he will be on trach collar tomorrow morning, family were at the bedside and updated about his situation he will be weaned off sedation completely liver on today he does not appear to be in acute distress at this time, we will hold off transfer the patient until after he weaned off. 05/01: Patient is sitting up in bed he is more awake and more alert is moving all his extremities currently has a trach collar in place, he continued to follow commands appropriately, his family were at the bedside and updated about his current situation. 05/02: Patient is sitting up in bed he continues to have ended in place, he cammie nues to have the trach collar in place, is moving all his extremities, he is feeling better today he has no abdominal pain, he has not passed any gas and he has not had a bowel movement. 05/03: Patient remains in the intensive care unit. He has undergone barium enema today which revealed limited single contrast barium enema. Limited distention of the left side of the colon. There is proximal to mid sigmoid diverticulosis. There he reaches the cecum and refluxes multiple distal ileal loops. There is subtle contour irregularity of the cecum and mucosal lesion or colitis here is difficult to exclude. No frankly constricting lesion is seen. Repeat chest x- ray reveals correlate for congestive heart failure, pneumonia not excluded. Patient has been continued on TPN. Patient has a trach collar place at 28%. He has been hemodynamically stable. Not requiring vasopressors. Temperature max 100.0. White count is 12.7, potassium 3.4, creatinine 0.61. Blood sugars running between 155 and 181. Objective - Vital Signs Vital signs: Vital Signs Temp 100 F H 05/03/19 08:00 Pulse 112 H 05/03/19 10:00 Resp 18 05/03/19 10:00 BP 124/85 05/03/19 10:00 Pulse Ox 97 05/03/19 10:00 Intake & Output 05/02/19 05/03/19 05/03/19 18:59 06:59 18:59 Intake Total 1660 1671 460 Output Total 1859 1390 180 Balance -199 281 280 Weight 93.6 kg 94 kg Intake: IV 1560 1671 260 Fat Emulsion 20% 250 ml 231 In Empty Bag 1 bag @ 21 mls/hr IV DAILY@1800 ELA Rx#:[id number] Mvi, Adult No.4 with Vit 1300 1200 200 K 10 ml Trace (Conc-1Ml/ Dose) 1 ml Sodium Acetate 20 meq Potassium Chloride 20 meq Magnesium Sulfate gm 1 gm Potassium Phosphate 9 mmol In Amino Acid 5%- D15w 1,000 ml @ 100 mls/ hr IV .BY DURATION ELA Rx #:[id number] Sodium Chloride 0.9% 1, 260 240 60 000 ml @ 20 mls/hr IV . Q24H ELA Rx#:[id number] Intake, IV Titration 100 200 Amount Potassium Chloride 20 meq 100 In Water For Injection 1 100ml.bag @ 50 mls/hr IVPB Q2H ELA Rx#: [id number] Potassium Chloride 20 meq 100 In Water For Injection 1 100ml.bag @ 50 mls/hr IVPB Q2H ELA Rx#: [id number] Sodium Acetate 20 meq 100 Potassium Chloride 20 meq Magnesium Sulfate gm 1 gm Potassium Phosphate 9 mmol In Amino Acid 5%- D15w 1,000 ml @ 100 mls/ hr IV .BY DURATION ELA Rx #:[id number] Output: Gastric Drainage 600 Urine 1259 1390 180 Other: Voiding Method Indwelling Catheter Indwelling Catheter Indwelling Catheter # Voids 1 ABP, PAP, CO, CI - Last Documented Arterial Blood Pressure 102/102 - Exam Neck HEENT: trach in with no lymph node enlargement no bruits.. Lungs: Decreased breath some bilateral rhonchi positive mild expiratory wheezes. Chest Wall: Decrease expansion with deep inspiration no tenderness and no deformity was found on exam, no costochondral pain or discomfort. Heart: Regular rate and rhythm, S1, S2, positive S3 positive tachycardia., no murmur, rub or gallop. Back: Symmetric, no curvature, ROM normal, no CVA tenderness. Abdomen: Soft distended positive bowel sound not able to feel any organomegaly no rebound or rigidity. Extremities: Extremities normal, atraumatic, no cyanosis or edema. Pulses: 2+ and symmetric. Skin: Skin color, texture, tugor normal, no rashes or lesions. Neurologic: awake, alert and oriented 3, extremely weak. - Labs CBC & Chem 7: 05/03/19 04:21 06/27/19 04:21 Labs: Abnormal Lab Results - Last 24 Hours (Table) 05/02/19 05/02/19 05/02/19 Range/Units 12:01 17:16 23:32 WBC (3.8-10.6) k/uL Potassium (3.5-5.1) mmol/L BUN (9-20) mg/dL Creatinine (0.66-1.25) mg/dL Glucose (74-99) mg/dL POC Glucose (mg/dL) 130 H 172 H 155 H (75-99) mg/dL Calcium (8.4-10.2) mg/dL 05/03/19 05/03/19 05/03/19 Range/Units 04:21 04:21 05:31 WBC 12.7 H (3.8-10.6) k/uL Potassium 3.2 L (3.5-5.1) mmol/L BUN 42 H (9-20) mg/dL Creatinine 0.61 L (0.66-1.25) mg/dL Glucose 189 H (74-99) mg/dL POC Glucose (mg/dL) 181 H (75-99) mg/dL Calcium 10.9 H (8.4-10.2) mg/dL Assessment and Plan Plan: 1. Abdominal pain, possible colitis, possible malignancy of the cecum. Consult with Dr. Aranda. Continue IV fluids, Zosyn. Barium study as above. 2. Hypertension with episode of accelerated hypertension. Continue hydralazine, Vasotec as needed 3. Hyperlipidemia. 4. Gastroesophageal reflux disease and GI prophylaxis. Continue Protonix. 5. Mild COPD exacerbation. Continue DuoNeb treatments every 4 hours as needed. 6. Diabetes mellitus type 2, insulin requiring, uncontrolled with hyperglyce nesha. Metformin on hold. NovoLog scale before meals and at bedtime. NovoLog scale 7. Generalized anxiety disorder. Citalopram 40 mg daily on hold. 8. DVT prophylaxis. Heparin subcu. 9. Acute hypoxic and hypercapnic respiratory failure with bilateral pulmonary infiltrates and masslike consolidation in the right lower lobe most likely secondary to massive aspiration pneumonia, acute respiratory distress syndrome. Patient is status post bronchoscopy. Patient is status post trach. 10. Abdominal distention secondary to ileus. Continue NG tube. Consult with Dr. Aranda . 11. Obstructive sleep apnea noncompliant with CPAP. 12. Blood culture with coag-negative staph, contamination. 13. Delirium tremens, resolved. No history of heart failure 14. Severe protein calorie malnutrition. Continue TPN. Discharge plan: To be determined. Impression and plan of care have been directed as dictated by the signing physician. Destini Navarro nurse practitioner acting as scribe for signing physician. <Radha Gallardojennie - Last Filed: 05/04/19 12:29> Subjective Review of systems: Constitutional: Generalized weakness, follow simple commands only. HEENT: No headache, blurred vision, positive for dysphagia, positive for tracheostomy. Cardiovascular: Palpitation, no chest pain, appears to be somewhat short of breath, no edema, mild minimal coughing, Respiratory: Minimal cough, tachypnea, shortness breath, no pleurisy. Gastrointestinal: No abdominal pain, nausea, vomiting, no bowel movement. Genitourinary: Goldberg catheter in place. Behavioral: Withdrawn, generally weak. Objective - Vital Signs Vital signs: Vital Signs Temp 97.6 F 05/04/19 04:00 Pulse 101 H 05/04/19 11:37 Resp 35 H 05/04/19 07:00 BP 127/82 05/04/19 07:00 Pulse Ox 95 05/04/19 07:00 Intake & Output 05/03/19 05/04/19 05/04/19 18:59 06:59 18:59 Intake Total 1420 1571 Output Total 685 1418 Balance 735 153 Weight 96 kg 96 kg Intake: IV 420 1571 Fat Emulsion 20% 250 ml 231 In Empty Bag 1 bag @ 21 mls/hr IV DAILY@1800 ELA Rx#:[id number] Mvi, Adult No.4 with Vit 200 1100 K 10 ml Trace (Conc-1Ml/ Dose) 1 ml Sodium Acetate 20 meq Potassium Chloride 20 meq Magnesium Sulfate gm 1 gm Potassium Phosphate 9 mmol In Amino Acid 5%- D15w 1,000 ml @ 100 mls/ hr IV .BY DURATION ELA Rx #:[id number] Sodium Chloride 0.9% 1, 220 240 000 ml @ 20 mls/hr IV . Q24H ELA Rx#:[id number] Intake, IV Titration 1000 Amount Potassium Chloride 20 meq 100 In Water For Injection 1 100ml.bag @ 50 mls/hr IVPB Q2H ELA Rx#: [id number] Potassium Chloride 20 meq 100 In Water For Injection 1 100ml.bag @ 50 mls/hr IVPB Q2H ELA Rx#: [id number] Sodium Acetate 20 meq 800 Potassium Chloride 20 meq Magnesium Sulfate gm 1 gm Potassium Phosphate 9 mmol In Amino Acid 5%- D15w 1,000 ml @ 100 mls/ hr IV .BY DURATION ELA Rx #:[id number] Output: Urine 685 1418 Other: Voiding Method Indwelling Catheter Indwelling Catheter # Voids 1 ABP, PAP, CO, CI - Last Documented Arterial Blood Pressure 102/102 - Labs CBC & Chem 7: 05/04/19 04:20 05/04/19 04:20 Labs: Abnormal Lab Results - Last 24 Hours (Table) 05/03/19 05/03/19 05/03/19 Range/Units 13:36 17:32 18:47 Potassium 3.4 L (3.5-5.1) mmol/L BUN (9-20) mg/dL Creatinine (0.66-1.25) mg/dL Glucose (74-99) mg/dL POC Glucose (mg/dL) 165 H 193 H (75-99) mg/dL Calcium (8.4-10.2) mg/dL 05/04/19 05/04/19 05/04/19 Range/Units 00:01 00:12 04:20 Potassium (3.5-5.1) mmol/L BUN 42 H (9-20) mg/dL Creatinine 0.64 L (0.66-1.25) mg/dL Glucose 193 H (74-99) mg/dL POC Glucose (mg/dL) 122 H 142 H (75-99) mg/dL Calcium 10.7 H (8.4-10.2) mg/dL 05/04/19 05/04/19 Range/Units 06:19 11:44 Potassium (3.5-5.1) mmol/L BUN (9-20) mg/dL Creatinine (0.66-1.25) mg/dL Glucose (74-99) mg/dL POC Glucose (mg/dL) 176 H 138 H (75-99) mg/dL Calcium (8.4-10.2) mg/dL
[2019-05-03 17:34] LABS: Glucose,Whole Blood 165 mg/dL (75-99)
[2019-05-03 19:04] LABS: Glucose,Whole Blood 193 mg/dL (75-99)
[2019-05-03] MEDS: FAT EMULSION 20% 250 ML in EMPTY BAG 1 BAG IV SCH (19:14)
[2019-05-04] MEDS: HYDROmorphone 0.5 MG/0.5 ML SYRINGE IVP PRN ×3 (00:02→22:15)
[2019-05-04] MEDS: FUROSEMIDE 10 MG/ML 4 ML VIAL IV SCH ×4 (00:03→23:58)
[2019-05-04 00:14] LABS: Glucose,Whole Blood 142 mg/dL (75-99)
[2019-05-04 00:14] LABS: Glucose,Whole Blood 122 mg/dL (75-99)
[2019-05-04] MEDS: INSULIN ASPART (NovoLOG) 100 UNIT/ML VIAL SQ SCH ×5 (00:14→23:57)
[2019-05-04] MEDS: LORazepam 2 MG/ML INJ IV PRN (04:06)
[2019-05-04 04:47] LABS: HCT 49.2 % (39.0-53.0); HGB 15.6 gm/dL (13.0-17.5); MCH 29.9 pg (25.0-35.0); MCHC 31.7 g/dL (31.0-37.0); MCV 94.5 fL (80.0-100.0); Mean Platelet Volume 7.4; Platelet Count 359 k/uL (150-450); RDW 13.3 % (11.5-15.5)
[2019-05-04 05:15] LABS: African American GFR (CKD) >90 (>60 ml/min/1.73 sqM); Anion Gap 13 mmol/L; Blood Urea Nitrogen 42 mg/dL (9-20); Calcium 10.7 mg/dL (8.4-10.2); Carbon Dioxide 24 mmol/L (22-30); Chloride 106 mmol/L (98-107); Glucose 193 mg/dL (74-99); Magnesium 2.3 mg/dL (1.6-2.3); Phosphorus 3.1 mg/dL (2.5-4.5); Potassium 3.8 mmol/L (3.5-5.1); Sodium 143 mmol/L (137-145)
[2019-05-04 06:21] LABS: Glucose,Whole Blood 176 mg/dL (75-99)
[2019-05-04] MEDS: IPRATROPIUM-ALBUTEROL 3 ML NEB INHALATION SCH ×4 (07:56→21:08)
--- NOTE | 2019-05-04 08:08 | XR ---
EXAMINATION TYPE: XR chest 1V portable DATE OF EXAM: 05/04/2019 COMPARISON: Prior chest x-ray 05/03/2019 HISTORY: Shortness of breath TECHNIQUE: Single frontal view of the chest is obtained. FINDINGS: Patient is rotated. Tracheostomy tube and subclavian central venous catheter are stable. I nterstitium is increased. There is improved aeration, lung volume. No pneumothorax. Heart size is sta ble. Aorta appears dense and aneurysmal. IMPRESSION: Some improvement in aeration.
[2019-05-04] MEDS: HEPARIN SODIUM,PORCINE 5,000 UNIT/ML 1 ML VIAL SQ SCH ×2 (08:51→21:09)
[2019-05-04] MEDS: PANTOPRAZOLE 40 MG/10 ML VIAL IV SCH (08:51)
[2019-05-04] MEDS ORDERED: POTASSIUM CHLORIDE 20 MEQ in WATER FOR INJECTION 1 100ML.BAG IVPB ONE (09:00)
--- NOTE | 2019-05-04 09:48 | P.PN ---
<Gabriela Jaimes Himanshu - Last Filed: 05/04/19 09:44> Subjective Progress Note Date: 05/04/19 CHIEF COMPLAINT: Abdominal pain HISTORY OF PRESENT ILLNESS: Patient remains in the ICU. He is currently resting in the chair. He remains on trach collar. He denies abdominal pain. NG was r emoved yesterday. TPN is infusing. Patient failed swallow screen yesterday. PHYSICAL EXAM: VITAL SIGNS: Reviewed. GENERAL: Well-developed. HEENT: Trach site without bleeding or signs of infection. No sclera icterus. Extraocular movements grossly intact. Moist buccal mucosa. Head is atraumatic, normocephalic. ABDOMEN: Soft. Positive bowel sounds. No pain with palpation. NEUROLOGIC: Currently resting. No focal deficits. ASSESSMENT: 1. Abdominal pain 2. Marked wall thickening of cecum, possible malignancy versus nonspecific colitis PLAN: Trach management per Dr. Joy Continue TPN Patient scheduled for repeat swallow study today at 11:00. Further recommendations pending results of swallow study May remove trach sutures tomorrow 05/05/2018 Nurse practitioner note has been reviewed by physician. Signing provider agrees with the documented findings, assessment, and plan of care. Objective - Vital Signs Vital signs: Vital Signs Temp 97.6 F 05/04/19 04:00 Pulse 112 H 05/04/19 09:09 Resp 35 H 05/04/19 07:00 BP 127/82 05/04/19 07:00 Pulse Ox 95 05/04/19 07:00 Intake & Output 05/03/19 05/04/19 05/04/19 18:59 06:59 18:59 Intake Total 1420 1571 Output Total 685 1418 Balance 735 153 Weight 96 kg 96 kg Intake: IV 420 1571 Fat Emulsion 20% 250 ml 231 In Empty Bag 1 bag @ 21 mls/hr IV DAILY@1800 [facility] Rx#:[id number] Mvi, Adult No.4 with Vit 200 1100 K 10 ml Trace (Conc-1Ml/ Dose) 1 ml Sodium Acetate 20 meq Potassium Chloride 20 meq Magnesium Sulfate gm 1 gm Potassium Phosphate 9 mmol In Amino Acid 5%- D15w 1,000 ml @ 100 mls/ hr IV .BY DURATION E[facility] Rx #:[id number] Sodium Chloride 0.9% 1, 220 240 000 ml @ 20 mls/hr IV . Q24H [facility] Rx#:[id number] Intake, IV Titration 1000 Amount Potassium Chloride 20 meq 100 In Water For Injection 1 100ml.bag @ 50 mls/hr IVPB Q2H E[facility] Rx#: [id number] Potassium Chloride 20 meq 100 In Water For Injection 1 100ml.bag @ 50 mls/hr IVPB Q2H E[facility] Rx#: [id number] Sodium Acetate 20 meq 800 Potassium Chloride 20 meq Magnesium Sulfate gm 1 gm Potassium Phosphate 9 mmol In Amino Acid 5%- D15w 1,000 ml @ 100 mls/ hr IV .BY DURATION ELA Rx #:[id number] Output: Urine 085 1418 Other: Voiding Method Indwelling Catheter Indwelling Catheter # Voids 1 ABP, PAP, CO, CI - Last Documented Arterial Blood Pressure 102/102 - Labs CBC & Chem 7: 05/04/19 04:20 05/04/19 04:20 Labs: Abnormal Lab Results - Last 24 Hours (Table) 05/03/19 05/03/19 05/03/19 Range/Units 11:53 13:36 17:32 Potassium 3.4 L (3.5-5.1) mmol/L BUN (9-20) mg/dL Creatinine (0.66-1.25) mg/dL Glucose (74-99) mg/dL POC Glucose (mg/dL) 167 H 165 H (75-99) mg/dL Calcium (8.4-10.2) mg/dL 05/03/19 05/04/19 05/04/19 Range/Units 18:47 00:01 00:12 Potassium (3.5-5.1) mmol/L BUN (9-20) mg/dL Creatinine (0.66-1.25) mg/dL Glucose (74-99) mg/dL POC Glucose (mg/dL) 193 H 122 H 142 H (75-99) mg/dL Calcium (8.4-10.2) mg/dL 05/04/19 05/04/19 Range/Units 04:20 06:19 Potassium (3.5-5.1) mmol/L BUN 42 H (9-20) mg/dL Creatinine 0.64 L (0.66-1.25) mg/dL Glucose 193 H (74-99) mg/dL POC Glucose (mg/dL) 176 H (75-99) mg/dL Calcium 10.7 H (8.4-10.2) mg/dL <PabloDominique lopezAzam - Last Filed: 05/04/19 15:19> Subjective As above. Patient having barium swallow study today. Hopefully begin liquids following that. We'll order repeat abdominal x-rays for Tuesday morning to rule out developing ileus or obstruction. We'll follow. Objective - Vital Signs Vital signs: Vital Signs Temp 97.6 F 05/04/19 04:00 Pulse 101 H 05/04/19 11:37 Resp 35 H 05/04/19 07:00 BP 127/82 05/04/19 07:00 Pulse Ox 95 05/04/19 07:00 Intake & Output 05/03/19 05/04/19 05/04/19 18:59 06:59 18:59 Intake Total 1420 2596 Output Total 685 1418 Balance 735 1178 Weight 96 kg 96 kg Intake: IV 420 1571 Fat Emulsion 20% 250 ml 231 In Empty Bag 1 bag @ 21 mls/hr IV DAILY@1800 [facility] Rx#:[id number] Mvi, Adult No.4 with Vit 200 1100 K 10 ml Trace (Conc-1Ml/ Dose) 1 ml Sodium Acetate 20 meq Potassium Chloride 20 meq Magnesium Sulfate gm 1 gm Potassium Phosphate 9 mmol In Amino Acid 5%- D15w 1,000 ml @ 100 mls/ hr IV .BY DURATION ELA Rx #:[id number] Sodium Chloride 0.9% 1, 220 240 000 ml @ 20 mls/hr IV . Q24H [facility] Rx#:[id number] Intake, IV Titration 1000 1025 Amount Potassium Chloride 20 meq 100 In Water For Injection 1 100ml.bag @ 50 mls/hr IVPB Q2H [facility] Rx#: [id number] Potassium Chloride 20 meq 100 In Water For Injection 1 100ml.bag @ 50 mls/hr IVPB Q2H [facility] Rx#: [id number] Sodium Acetate 20 meq 800 1025 Potassium Chloride 20 meq Magnesium Sulfate gm 1 gm Potassium Phosphate 9 mmol In Amino Acid 5%- D15w 1,000 ml @ 100 mls/ hr IV .BY DURATION E[facility] Rx #:[id number] Output: Urine 685 1418 Other: Voiding Method Indwelling Catheter Indwelling Catheter # Voids 1 ABP, PAP, CO, CI - Last Documented Arterial Blood Pressure 102/102 - Labs CBC & Chem 7: 05/04/19 04:20 05/04/19 04:20 Labs: Abnormal Lab Results - Last 24 Hours (Table) 05/03/19 05/03/19 05/04/19 Range/Units 17:32 18:47 00:01 BUN (9-20) mg/dL Creatinine (0.66-1.25) mg/dL Glucose (74-99) mg/dL POC Glucose (mg/dL) 165 H 193 H 122 H (75-99) mg/dL Calcium (8.4-10.2) mg/dL 05/04/19 05/04/19 05/04/19 Range/Units 00:12 04:20 06:19 BUN 42 H (9-20) mg/dL Creatinine 0.64 L (0.66-1.25) mg/dL Glucose 193 H (74-99) mg/dL POC Glucose (mg/dL) 142 H 176 H (75-99) mg/dL Calcium 10.7 H (8.4-10.2) mg/dL 05/04/19 Range/Units 11:44 BUN (9-20) mg/dL Creatinine (0.66-1.25) mg/dL Glucose (74-99) mg/dL POC Glucose (mg/dL) 138 H (75-99) mg/dL Calcium (8.4-10.2) mg/dL Assessment and Plan (1) Colitis Current Visit: Yes Status: Acute Code(s): K52.9 - NONINFECTIVE GASTROENTERIT IS AND COLITIS, UNSPECIFIED SNOMED Code(s): 38221963
--- NOTE | 2019-05-04 10:10 | PN ---
PROGRESS NOTE DATE OF SERVICE: 05/04/2019. This is a 69-year-old male who was admitted back on April 15 with an episode of colitis and abdominal pain. He apparently had an episode of aspiration on April 17 and for that reason, developed hypoxemic respiratory failure which required intubation and mechanical ventilation. He did not initially wean very well and on April 27, 10 days after being intubated, a tracheostomy was performed. He recently progressed very nicely. He is currently on trach collar 28% for the last 3 days. The patient did have a barium enema. It showed evidence of diverticular disease and colitis. The patient did not pass his swallow evaluation. A PICC line will be placed today and a central line will be removed and cultured. Dr. Aranda is following from Surgery. The patient had a pretty uneventful night. In addition to 28% trach collar, he is on saline at 20 mL an hour and TPN at 100 mL an hour. He has done well overnight. Chest x-ray is stable. PHYSICAL EXAMINATION: VITAL SIGNS: Current vital signs are reviewed. His temperature is 97.6, heart rate is 110, respiratory rate 24, blood pressure 127/82, mean 97, saturation 95%. Appears in no acute distress. HEENT: Examination is grossly unremarkable. NECK: Supple. Full range of motion. No adenopathy, thyromegaly or neck vein distention. Tracheostomy is noted in the midline. Trach collar in place. CARDIOVASCULAR: Examination reveals mild tachycardia. Heart rate about 110. S1, S2 normal. Heart sounds are distant. LUNGS: Reveal coarse inspiratory and expiratory rhonchi. No wheezes. Some bilateral crackles noted. ABDOMEN: Soft. Bowel sounds are noted. EXTREMITIES: Are intact. No cyanosis, clubbing, or edema. SKIN: Without rash. NEUROLOGIC: Examination is brief but nonfocal. Microbiologically, everything is negative save for the Coag-negative staph in the blood from April 17. LABS: Labs are reviewed. White count 9, hemoglobin 15.6, hematocrit 49.2, platelet count 359,000. Sodium, potassium, chloride and CO2 all normal. Anion gap is normal. BUN and creatinine were 42 and 0.64. MEDICATIONS: Medications are reviewed. They were adjusted accordingly. ASSESSMENT: 1. Acute hypoxemic hypercapnic respiratory failure, secondary to bilateral aspiration pneumonia as well as development of acute respiratory distress syndrome. Both of these situations have significantly improved. 2. Status post tracheostomy on April 27, secondary to failure to wean. 3. Previous mechanical ventilation beginning on April 17 for acute respiratory failure and aspiration pneumonia, now weaned to trach collar. 4. Acute colitis with possible cecal mass and abdominal distention, improved. 5. Evidence of colitis and diverticular disease on barium enema. 6. Failed swallow evaluation. 7. Benign essential hypertension. 8. History of alcohol abuse. 9. Sleep apnea syndrome. 10.Abdominal pain, improved. 11.History of gastroesophageal reflux disease. 12.Type 2 diabetes mellitus. PLAN: Overall the patient is doing reasonably well. He will stay here in the unit. The patient's belly is still an issue. This is being sorted out by Surgery. Labs, x-rays, and medications are reviewed. Respiratory status is much improved. No additional recommendations are made. Culture data has been essentially negative. Currently, the patient is not on any antibiotics. We will continue to follow. MMODL / IJN: [id number] /
[2019-05-04] MEDS ORDERED: LORazepam 2 MG/ML INJ IV PRN (10:59)
[2019-05-04 11:47] LABS: Glucose,Whole Blood 138 mg/dL (75-99)
[2019-05-04 11:50] LABS: INR 1.1 (<1.2); Prothrombin Time 11.8 sec (9.0-12.0)
[2019-05-04] MEDS: KETOROLAC 30 MG/ML 1 ML VIAL IVP SCH ×3 (12:03→23:58)
[2019-05-04] MEDS ORDERED: LIDOCAINE 1% INJ 10MG/ML (20 ML MDV) ONE (12:09)
[2019-05-04] MEDS: ACETAMINOPHEN IV (For NPO) 1,000 MG in EMPTY BAG 1 BAG IVPB PRN ×2 (12:41→21:09)
[2019-05-04] MEDS ORDERED: LIDOCAINE 1% INJ 10MG/ML (20 ML MDV) SQ ONE (12:53)
--- NOTE | 2019-05-04 13:28 | XR ---
EXAMINATION TYPE: XR chest 1V confirm line [facility] DATE OF EXAM: 05/04/2019 COMPARISON: Prior chest x-ray same dated earlier time HISTORY: PICC line reposition TECHNIQUE: Single frontal view of the chest is obtained. FINDINGS: PICC line is again seen coursing cephalad direction. IMPRESSION: No interval change
--- NOTE | 2019-05-04 13:29 | XR ---
EXAMINATION TYPE: XR chest 1V confirm line plcin DATE OF EXAM: 05/04/2019 at 1259 hours COMPARISON: Earlier today 545 hour exam HISTORY: 69-year-old male confirm PICC line placement TECHNIQUE: Single frontal view of the chest is obtained. FINDINGS: Tracheostomy cannula. Right PICC line extends up beyond the [id number]. Left subclavian CVC tip at the mid SVC level. Diffuse interstitial densities persist. IMPRESSION: Right PICC line extends up beyond the [id number]. Repositioning recommended. Diffuse interstitial densities.
--- NOTE | 2019-05-04 13:30 | XR ---
EXAMINATION TYPE: XR chest 1V confirm line plcmt, XR chest 1V confirm line plcmt DATE OF EXAM: 05/04/2019 COMPARISON: Prior chest x-ray same dated earlier time HISTORY: PICC line reposition TECHNIQUE: Single frontal view of the chest is obtained. FINDINGS: Initial exam shows removal of the PICC line from the internal jugular vein and it is loope d within the superior vena cava. Follow-up chest x-ray shows interval repositioning, tip of the arnold ter is within right atrium. IMPRESSION: Interval PICC line repositioning, PICC line ready for use.
--- NOTE | 2019-05-04 13:55 | P.PN ---
Subjective Progress Note Date: 05/04/19 This is a 69-year-old male patient of Dr. Gallardo with past medical history of hypertension, hyperlipidemia, COPD, gastroesophageal reflux disease, remote history of tobacco use, obstructive sleep apnea not using CPAP. Patient complains of sudden onset of abdominal pain starting on Tuesday. He also complains of bloating in the abdomen for the past couple months as well as weight loss of 5-10 pounds over the past 3 months. He complains of decreased appetite. He states he has had occasional burgundy stools. He denies any black stools, no diarrhea, no vomiting. He denies any urinary symptoms. Patient states he had his last colonoscopy in 2013 which was normal. Patient presents to [facility] emergency center for evaluation. Abdominal x-ray shows no acute findings. CAT scan of the abdomen and pelvis showed marked thickening of the cecum concerning for malignancy. A nonspecific colitis is not excluded but felt to be less likely. Thickening in the gastric rugae which may be secondary to under distention versus a nonspecific gastritis. EKG is a sinus tachycardia with right bundle branch block, left AFB. WBC 16.7, hemoglobin 14.7, creatinine 0.74. Troponin negative. Amylase and lipase, liver function tests all normal. Urinalysis was clear with 1+ protein. Patient was admitted to the [facility] floor, consult with Dr. Givens, IV fluids, pain medications and Zofran. Plan is for colonoscopy tomorrow. 04/17: Overnight, patient developed acute respiratory failure and was transferred to the intensive care unit and patient placed on BiPAP, currently under care of Dr. Caballero. Patient subsequently intubated and placed on mechanical ventilation. Echocardiogram from yesterday reveals EF 55-60% with moderate concentric left ventricle hypertrophy, trace mitral regurgitation, trace tricuspid regurgitation, no pulmonary hypertension. No pericardial effusion. Chest x-ray shows new right basilar and pneumonic consolidation with diminished inspiration background right hilar and left basilar more patchy edema and or infiltrate felt present. Repeat chest x-ray shows new endotracheal tube with placement described with recommendations to pullback. Mild cardiomegaly and low lung volumes with bilateral hilar edema and/or infiltrate and right basilar consolidation all redemonstrated increasing left basilar infiltrate felt present. Abdomen was more distended and NG tube was placed. Immediate surgical consultation was requested by Dr. Caballero. Dr. Givens attempted bedside colonoscopy but patient was not properly prepped. He is scheduled for CAT scan of the abdomen and pelvis this afternoon at 2:30. NG tube is in place with bile color returned. Family members are in the waiting room and have been updated. 04/18: The patient remains in intensive care unit intubated and on mechanical ventilation. Vent settings have been decreased and no plan for sedation holiday today. He was weaned off norepinephrine this morning. Urine output has been 50-75 mL per hour. Noted that the Weston tube is pink but urine is alesia most likely a drug reaction. Patient has had several bowel movements this morning. Antibiotics have been switched to Zosyn and vancomycin. TSH 0.224 with normal free T4 at 1.24. Surgical consultation has been changed to Dr. Aranda per family wishes. 04/19: Patient remains in intensive care unit intubated and on mechanical ventilation. Patient has had increased purulent secretions and underwent reintubation by Dr. Caballero. He also perform bronchoscopy at the bedside and suction 20 ML's purulent material specimen was sent to the lab for cytology and culture. He is concern for ARDS. Patient is continued on Zosyn and vancomycin. He has been off vasopressors since yesterday morning. Patient has had a small amount of liquid stool today much decreased from yesterday. Dr. Aranda is on for surgery at this point. Patient is having minimal output from NG tube. Bowel sounds remain hypoactive. Consult has been added for GI regarding concern for ischemic colitis. 04/20: Patient remains intubated and on mechanical ventilation. Repeat chest x- ray shows continued mild to moderate heart failure. Small to moderate effusions with prominent bibasilar atelectasis and/or consolidation persists. Dr. Aranda is planning for bedside colonoscopy today. Patient was ordered for soapsuds enema last night and this morning. Tube feedings on hold. He has been afebrile, heart rate in the 50s and 60s, blood pressure 141/66. Pulse ox 99%. WBC 8.1, hemoglobin 11.2. Creatinine 0.65. Bronchial washing cytology is pending. Bronchial cultures in progress. Patient will need to start tube feedings or TPN depending on results of colonoscopy scheduled for this afternoon. Patient was given 1 dose of IV Lasix this morning and is diuresing well. Family in the waiting room have been updated. 04/21: Patient remains in the bed, FiO2 40%, PEEP of 6, NG tube has been placed and had taken out the OG tube, fecaloid billous contents are observed in the NG tube, bowel sounds are very diminished today, no bowel movements over the past 24 hours, x-rays of the abdomen will be done to evaluate for progressive bowel o bstruction, patient remains to be afebrile, no leukocytosis bronchial washing cultures shows no normal zander vital signs are stable no hypotensive events, patient is slightly hypotensive on IV Solu-Medrol 40 every 8 04/23: Patient remains intubated and on mechanical ventilation. Dr. Dunham does not plan for attempt at weaning today. He is started him on hydralazine for blood pressure control. Patient has been started on TPN. On Tuesday, patient underwent colonoscopy with Dr. Aranda that revealed reticulosis, tortuous colon and recommends once patient is off ventilation to have barium enema to evaluate the ileocecal valve. Keep NG tube post extubation and hold tube feedings for now. No bowel movement today. 04/24: Patient had a rough night became significantly hypertensive, tachypneic a nd tachycardic. Patient was started on labetalol drip once other options were attempted without success and this was weaned off this morning. Patient also was placed on Nimbex and fentanyl drip which are to be weaned off today. Chest x-ray shows worsening interstitial infiltrates bilaterally and possible interstitial edema. Dr. Dunham increase Lasix to 40 mg IV push every 12 hours. Patient has not had a bowel movement. He remains on TPN and NG tube to suction. Urine output is adequate, tea-colored. Discussed yesterday the possibility of needing a trach and PEG with family members. At this time, Dr. Dunham would like to hold off. 04/25: Patient is still sedated on mechanical ventilation he had failed his weaning parameter today I want to see him when the and the son were in the room door tachycardia with Dr. dao about further plan. Pulmonary and from medicine standpoint patient most likely will need to go to trach no PEG tube can be done for now expected the plan probably for Tuesday and from thereon if more stable can go for his barium enema to come with final diagnosis of the tumor or the finding in the cecum and the large intestine and from thereon further management can be planned. Patient still on multiple drips for pain management let pressure TPN and DT. 04/26: A Chin still on mechanical ventilation, sedated, he is slightly bit awaking when backing off on sedation is still very agitated between having quite bed elevated blood pressure and pulse rate did not succeed on weaning parameter and most likely he will need tracheostomy by tomorrow. PEG tube is negative be possible at this point because of the possibility of mass in the cecum with obstruction cankerous problem if he is more stable can go for barium enema and then PEG tube if there is no cecal mass likely his CEA came back negative. 04/27 patient examined bedside currently intubated D 10. Patient came in with abdominal pain, nausea, vomiting followed by a respiratory failure the next day leading to intubation. Patient is found to be agitated him on ventilator. Currently requiring 75 mics of propofol. On vital evaluation patient had a heart rate of 77 respiratory rate 26 blood pressure 159/62 on clear with pain drip abdominal x-ray this morning shows nonspecific bowel pattern with the bilateral pleural effusion chest x-ray suggestive of pulmonary edema versus consolidation. Patient is currently on Lasix 40 mg IV twice a day and making good urine output 75 mL per hour. Blood cultures so far negative. Bronchoscopy results are negative so far. Plan for tracheostomy placement today. PEG tube is on hold until further information about the cecal mass/colitis. 04/28: Examined at bedside currently on CPAP. Patient was on a sedation holiday for approximately 1 hour sedation has been increased due to fatigue and agitation. Vital signs have been stable blood pressure 151/60 pulse ox a 97% on CPAP pulse rate 98. Patient was able to follow commands however weak. Patient was able to nod head and answer actions appropriately. Family at the bedside discussing plan of care. Continue nutritional support with TPN. 04/29: Patient examined bedside currently on CPAP tolerating. Patient is more alert today compared to yesterday. Patient is able to follow commands movements are weak and nods head appropriately to questions. Patient is on propofol at 10 at this time. She was on a sedation holiday however heart rate and blood pressure increase. Urinary output approximately 60-70 ML's per hour. Patient has not had a bowel movement continues with NG suction approximately 600-700 ML's output in 24 hours. 04/30: Patient is sitting up in bed does appear in less distress today he continues to have the trach in place we're trying to the patient on the ventilator hopefully he will be on trach collar tomorrow morning, family were at the bedside and updated about his situation he will be weaned off sedation completely liver on today he does not appear to be in acute distress at this time, we will hold off transfer the patient until after he weaned off. 05/01: Patient is sitting up in bed he is more awake and more alert is moving all his extremities currently has a trach collar in place, he continued to follow commands appropriately, his family were at the bedside and updated about his current situation. 05/02: Patient is sitting up in bed he continues to have ended in place, he continues to have the trach collar in place, is moving all his extremities, he is feeling better today he has no abdominal pain, he has not passed any gas and he has not had a bowel movement. 05/03: Patient remains in the intensive care unit. He has undergone barium enema today which revealed limited single contrast barium enema. Limited distention of the left side of the colon. There is proximal to mid sigmoid diverticulosis. There he reaches the cecum and refluxes multiple distal ileal loops. There is subtle contour irregularity of the cecum and mucosal lesion or colitis here is difficult to exclude. No frankly constricting lesion is seen. Repeat chest x- ray reveals correlate for congestive heart failure, pneumonia not excluded. Patient has been continued on TPN. Patient has a trach collar place at 28%. He has been hemodynamically stable. Not requiring vasopressors. Temperature max 100.0. White count is 12.7, potassium 3.4, creatinine 0.61. Blood sugars running between 155 and 181. 05/04: Patient remains in intensive care unit. Patient pulled his NG tube out yesterday and Dr Aranda to reevaluate as he did fail swallow evaluation. Speech therapy will reevaluate today as well. Patient is scheduled for PICC line placement today for TPN and central line will then be removed. Abdomen is soft. He has had good urine output. His temperature max 101.2 axillary. He is on IV Tylenol. Patient has worked with PT and OT and up to a chair. He is extremely fatigued following this activity. Patient will have an extended recovery phase. Ativan will be changed to only at bedtime if needed and Toradol added for pain versus Dilaudid. Objective - Vital Signs Vital signs: Vital Signs Temp 97.6 F 05/04/19 04:00 Pulse 101 H 05/04/19 11:37 Resp 35 H 05/04/19 07:00 BP 127/82 05/04/19 07:00 Pulse Ox 95 05/04/19 07:00 Intake & Output 05/03/19 05/04/19 05/04/19 18:59 06:59 18:59 Intake Total 1420 2596 Output Total 685 1418 Balance 735 1178 Weight 96 kg 96 kg Intake: IV 420 1571 Fat Emulsion 20% 250 ml 231 In Empty Bag 1 bag @ 21 mls/hr IV DAILY@1800 [facility] Rx#:[id number] Mvi, Adult No.4 with Vit 200 1100 K 10 ml Trace (Conc-1Ml/ Dose) 1 ml Sodium Acetate 20 meq Potassium Chloride 20 meq Magnesium Sulfate gm 1 gm Potassium Phosphate 9 mmol In Amino Acid 5%- D15w 1,000 ml @ 100 mls/ hr IV .BY DURATION [facility] Rx #:[id number] Sodium Chloride 0.9% 1, 220 240 000 ml @ 20 mls/hr IV . Q24H [facility] Rx#:[id number] Intake, IV Titration 1000 1025 Amount Potassium Chloride 20 meq 100 In Water For Injection 1 100ml.bag @ 50 mls/hr IVPB Q2H [facility] Rx#: [id number] Potassium Chloride 20 meq 100 In Water For Injection 1 100ml.bag @ 50 mls/hr IVPB Q2H ELA Rx#: [id number] Sodium Acetate 20 meq 800 1025 Potassium Chloride 20 meq Magnesium Sulfate gm 1 gm Potassium Phosphate 9 mmol In Amino Acid 5%- D15w 1,000 ml @ 100 mls/ hr IV .BY DURATION ELA Rx #:[id number] Output: Urine 685 1418 Other: Voiding Method Indwelling Catheter Indwelling Catheter # Voids 1 ABP, PAP, CO, CI - Last Documented Arterial Blood Pressure 102/102 - Exam Review Of Systems: Constitutional: Reports fever, no chills, no night sweats. Reports weakness, fatigue and lethargy. Reports daytime sleepiness. EENT: No headache. No blurred vision or double vision, no loss of vision. No loss of Hearing, no ringing in the ears, no dizziness. No nasal drainage or congestion. No epistaxis. No sore throat. Lungs: Reports shortness of breath, cough, no sputum production. No wheezing. Cardiovascular: No chest pain, no lower extremity edema. No palpitations. No paroxysmal nocturnal dyspnea. No orthopnea. No lightheadedness or dizziness. No syncopal episodes. Abdominal: No abdominal pain. No nausea, vomiting. No diarrhea. No co nstipation. No bloody or tarry stools.. No loss of appetite. Genitourinary: No dysuria, increased frequency, urgency. No urinary retention- weston in place. Musculoskeletal: No myalgias. Reports muscle weakness, reports gait dysfunction. No back pain. No neck pain. Integumentary: No wounds, no lesions. No rash or pruritus. No unusual bruising. No change in hair or nails. Neurologic: No aphasia. No facial droop. No change in mentation. No head injury. No headache. No paralysis. No paresthesia. Psychiatric: No depression. No anxiety. No mood swings. Endocrine: No abnormal blood sugars. No weight change. No excessive sweating or thirst. No cold intolerance. Neck HEENT: trach in with no lymph node enlargement no bruits.. Lungs: Decreased breath some bilateral rhonchi positive mild expiratory wheezes. Chest Wall: Decrease expansion with deep inspiration no tenderness and no deformity was found on exam, no costochondral pain or discomfort. Heart: Regular rate and rhythm, S1, S2, positive S3 positive tachycardia., no murmur, rub or gallop. Back: Symmetric, no curvature, ROM normal, no CVA tenderness. Abdomen: Soft distended positive bowel sound not able to feel any organomegaly no rebound or rigidity. Extremities: Extremities normal, atraumatic, no cyanosis or edema. Pulses: 2+ and symmetric. Skin: Skin color, texture, tugor normal, no rashes or lesions. Neurologic: awake, alert and oriented 3, severe weakness noted. - Labs CBC & Chem 7: 05/04/19 04:20 05/04/19 04:20 Labs: Abnormal Lab Results - Last 24 Hours (Table) 05/03/19 05/03/19 05/03/19 Range/Units 13:36 17:32 18:47 Potassium 3.4 L (3.5-5.1) mmol/L BUN (9-20) mg/dL Creatinine (0.66-1.25) mg/dL Glucose (74-99) mg/dL POC Glucose (mg/dL) 165 H 193 H (75-99) mg/dL Calcium (8.4-10.2) mg/dL 05/04/19 05/04/19 05/04/19 Range/Units 00:01 00:12 04:20 Potassium (3.5-5.1) mmol/L BUN 42 H (9-20) mg/dL Creatinine 0.64 L (0.66-1.25) mg/dL Glucose 193 H (74-99) mg/dL POC Glucose (mg/dL) 122 H 142 H (75-99) mg/dL Calcium 10.7 H (8.4-10.2) mg/dL 05/04/19 05/04/19 Range/Units 06: 11:44 Potassium (3.5-5.1) mmol/L BUN (9-20) mg/dL Creatinine (0.66-1.25) mg/dL Glucose (74-99) mg/dL POC Glucose (mg/dL) 176 H 138 H (75-99) mg/dL Calcium (8.4-10.2) mg/dL Assessment and Plan Plan: 1. Abdominal pain, possible colitis, possible malignancy of the cecum, neither have been ruled out but CEA is less than 0.5.. Consult with Dr. Aranda. Continue IV fluids, Zosyn was discontinued on April 30. Barium study as above. Toradol added for pain. 2. Hypertension with episode of accelerated hypertension. Continue hydralazine , Vasotec as needed 3. Hyperlipidemia. 4. Gastroesophageal reflux disease and GI prophylaxis. Continue Protonix. 5. Mild COPD exacerbation. Continue DuoNeb treatments every 4 hours as needed. 6. Diabetes mellitus type 2, insulin requiring, uncontrolled with hyperglycemia. Metformin on hold. NovoLog scale before meals and at bedtime. NovoLog scale 7. Generalized anxiety disorder. Citalopram 40 mg daily on hold. 8. DVT prophylaxis. Heparin subcu. 9. Acute hypoxic and hypercapnic respiratory failure with bilateral pulmonary infiltrates and masslike consolidation in the right lower lobe most likely secondary to massive aspiration pneumonia, acute respiratory distress syndrome. Patient is status post bronchoscopy. Patient is status post trach. 10. Abdominal distention secondary to ileus. NG tube was pulled by accident. Consult with Dr. Aranda . 11. Obstructive sleep apnea noncompliant with CPAP. 12. Blood culture with coag-negative staph, contamination. 13. Delirium tremens, resolved. 14. Severe protein calorie malnutrition. Continue TPN. PICC line ordered for today. Central line to be discontinued. No history of heart failure Discharge plan: To be determined. Impression and plan of care have been directed as dictated by the signing physi cian. Destini Navarro nurse practitioner acting as scribe for signing physician.
--- NOTE | 2019-05-04 15:57 | FL ---
MODIFIED SWALLOW / DEGLUTITION STUDY DATE OF EXAM: 05/04/2019 CLINICAL HISTORY: 69-year-old male new tracheostomy placement, assess swallow. Patient on TPN. TECHNIQUE: Deglutition study is performed utilizing thin liquid barium, honey and nectar thick liqui d barium, barium thick applesauce, and barium coated cracker. COMPARISON: None. Total fluoroscopy time: 3 minutes 37 seconds. Total images: None. Real-time fluoroscopy support was provided to speech pathology. FINDINGS: The solid initiation is initially poor but progressively improves after subsequent swallows. The oral and pharyngeal phases show satisfactory initiation and propagation with all modalities tested. Norm al mastication is seen with solid modalities tested. There is no evidence of penetration or aspirati on with any modality tested. However, there are severe residuals within the piriform sinuses and vall ecular spaces as well as along the posterior pharyngeal wall. IMPRESSION: No penetration or aspiration. However, severe residuals place the patient at risk for subsequent aspi ration. Please refer to speech therapist notes for further details if necessary.
--- NOTE | 2019-05-04 16:42 | IR ---
EXAMINATION TYPE: IR cvc insert >=5 years DATE OF EXAM: 05/04/2019 COMPARISON: NONE HISTORY: Needs long-term intravenous access for total parenteral nutrition FINDINGS: Maximal barrier technique was utilized. The skin overlying the right basilic vein was loca lized with ultrasound and noted to be compressible and patent by ultrasound. An ultrasound image was obtained and submitted on patient's chart. Sterile technique utilized with the ultrasound machine. T he skin overlying was prepped and draped and Lidocaine used for local anesthesia. A skin joleen was ma de with a scalpel. Access was gained to the vein under direct ultrasound guidance with a 21-gauge ne edle and a 0.018 inch wire was advanced. Access site was dilated with a peel-away sheath and the cat heter tailored to length. Catheter advanced centrally and a post procedure chest x-ray verified plac ement with the tip in the right atrium following multiple repositionings. Catheter was fixed to the skin and a sterile dressing placed. Hemostasis achieved and the catheter was aspirated and flushed w ith sterile saline. The patient remained in stable condition. IMPRESSION: STATUS POST ULTRASOUND GUIDED PICC LINE PLACEMENT, READY FOR USE. THIS PROCEDURE WAS PER FORMED BY THE UNDERSIGNED.
[2019-05-04] MEDS: FAT EMULSION 20% 250 ML in EMPTY BAG 1 BAG IV SCH (17:30)
[2019-05-04 18:36] LABS: Glucose,Whole Blood 204 mg/dL (75-99)
[2019-05-04] MEDS: SODIUM CHLORIDE 0.9% 1,000 ML IV SCH (20:37)
[2019-05-04 23:58] LABS: Glucose,Whole Blood 155 mg/dL (75-99)
[2019-05-05 04:03] LABS: ABG Base Excess -3.8 mmol/L; ABG HCO3 20 mmol/L (21-25); ABG Oxygen Saturation 94.4 % (94-97); ABG PCO2 27 mmHg (35-45); ABG PH 7.48 (7.35-7.45); ABG PO2 70 mmHg (83-108); ABG TCO2 21 mmol/L (19-24); Allen Test Performed? Yes
[2019-05-05] MEDS: ACETAMINOPHEN IV (For NPO) 1,000 MG in EMPTY BAG 1 BAG IVPB PRN ×3 (04:17→15:56)
[2019-05-05 04:33] LABS: HCT 45.4 % (39.0-53.0); HGB 14.8 gm/dL (13.0-17.5); MCH 30.6 pg (25.0-35.0); MCHC 32.7 g/dL (31.0-37.0); MCV 93.4 fL (80.0-100.0); Mean Platelet Volume 7.8; Platelet Count 247 k/uL (150-450); RBC 4.86 m/uL (4.30-5.90); RDW 13.6 % (11.5-15.5); WBC 8.1 k/uL (3.8-10.6)
[2019-05-05 04:42] LABS: Calcium 9.9 mg/dL (8.4-10.2); Magnesium 2.3 mg/dL (1.6-2.3); Phosphorus 2.6 mg/dL (2.5-4.5); Potassium 4.3 mmol/L (3.5-5.1)
[2019-05-05] MEDS: KETOROLAC 30 MG/ML 1 ML VIAL IVP SCH (05:11)
[2019-05-05] MEDS: INSULIN ASPART (NovoLOG) 100 UNIT/ML VIAL SQ SCH ×3 (06:22→18:44)
[2019-05-05 06:23] LABS: Glucose,Whole Blood 204 mg/dL (75-99)
--- NOTE | 2019-05-05 06:39 | XR ---
EXAMINATION TYPE: XR chest 1V portable DATE OF EXAM: 05/05/2019 HISTORY: shortness of breath. REFERENCE: Previous study dated 05/04/2019. FINDINGS: There is a tracheostomy tube in place. Its tip overlies the tracheal air column in this sin gle frontal projection. There is a right basilic PICC line in place. Its tip is in superior vena cava . Heart size upper limits of normal. There is vascular congestion and subtle interstitial change. I cou ld not exclude a tiny left effusion. IMPRESSION: FINDINGS CONSISTENT WITH MILD CONGESTIVE HEART FAILURE.
[2019-05-05] MEDS: IPRATROPIUM-ALBUTEROL 3 ML NEB INHALATION SCH ×4 (07:08→19:25)
[2019-05-05] MEDS: HYDROmorphone 0.5 MG/0.5 ML SYRINGE IVP PRN ×3 (07:18→12:50)
[2019-05-05] MEDS: FUROSEMIDE 10 MG/ML 4 ML VIAL IV SCH (09:25)
[2019-05-05] MEDS: HEPARIN SODIUM,PORCINE 5,000 UNIT/ML 1 ML VIAL SQ SCH ×2 (09:25→20:12)
[2019-05-05] MEDS: PANTOPRAZOLE 40 MG/10 ML VIAL IV SCH (09:25)
[2019-05-05] MEDS ORDERED: SODIUM CHLORIDE 0.9% 500 ML 500 ML IV ONE (09:49)
[2019-05-05] MEDS: PIPERACILLIN-TAZOBACTAM 3.375 GM in SODIUM CHLORIDE 0.9% 100 ML IVPB SCH ×2 (10:07→19:58)
--- NOTE | 2019-05-05 11:09 | P.PN ---
Subjective Progress Note Date: 05/05/19 CHIEF COMPLAINT: Acute respiratory distress and Pyrexia HISTORY OF PRESENT ILLNESS: The patient is a 69-year-old male with hospitalization over 2 weeks. During this hospitalization had trach placed. he had a swallow study evaluation. He had temperature of 105 degrees Fahrenheit per nursing. He is more agitated today on full ventilatory support with tracheostomy. No feeding tube. He is on TPN. ROS: Has recent history of fevers. Protein malnutrition on TPN. History of questionable malignancy gastrointestinal system. PHYSICAL EXAM: VITAL SIGNS: Reviewed CONSTITUTIONAL: Well developed and in no acute distress. EYES: Conjuctivae without sclera icterus. Extraocular movements grossly intact. HEAD, EARS, NOSE, THROAT: Moist buccal mucosa. Head is atraumatic, normocephalic. Hears conversational speech. No nasal drainage. NECK: Supple. Tracheostomy intact. RESPIRATORY: Non-labored respirations and equal bilateral excursions. CARDIOVASCULAR: Palpable 2+ radial pulses. Tachycardic. ABDOMEN: Well-healed midline incision. No gastrostomy tube. MUSCULOSKELETAL: No gross deformity of the lower extremities noted. No clubbing. No cyanosis. SKIN: Good skin turgor. Well perfused. NEUROLOGIC: No focal or lateralizing signs. Moves all extremities. In restraints. PSYCH: Agitated. Alert to person. REPORTS: Reviewed swallow study showing high risk for aspiration with residuals otherwise passed. CLINCAL LABS: White blood cell count normal ASSESSMENT: 1. Acute respiratory distress 2. Status post tracheostomy PLAN: 1. Continue vent management in the interim including anti-pyretics. Objective - Vital Signs Vital signs: Vital Signs Temp 102.4 F H 05/05/19 11:00 Pulse 117 H 05/05/19 11:00 Resp 22 05/05/19 11:00 BP 121/74 05/05/19 11:00 Pulse Ox 98 05/05/19 11:00 Intake & Output 05/04/19 05/05/19 05/05/19 18:59 06:59 18:59 Intake Total 1839 1898 240 Output Total 1000 870 75 Balance 839 1028 165 Weight 96 kg 96 kg Intake: IV 141 1730 240 ACETAMINOPHEN IV (For NPO 200 ) 1,000 mg In Empty Bag 1 bag @ 400 mls/hr IVPB Q6HR PRN Rx#:[id number] Fat Emulsion 20% 250 ml 21 210 In Empty Bag 1 bag @ 21 mls/hr IV DAILY@1800 [facility] Rx#:[id number] Mvi, Adult No.4 with Vit 300 K 10 ml Trace (Conc-1Ml/ Dose) 1 ml Sodium Acetate 20 meq Potassium Chloride 20 meq Magnesium Sulfate gm 1 gm Potassium Phosphate 9 mmol In Amino Acid 5%- D15w 1,000 ml @ 100 mls/ hr IV .BY DURATION [facility] Rx #:[id number] Mvi, Adult No.4 with Vit 800 200 K 10 ml Trace (Conc-1Ml/ Dose) 1 ml Sodium Acetate 20 meq Potassium Chloride 20 meq Magnesium Sulfate gm 1 gm Potassium Phosphate 9 mmol In Amino Acid 5%- D15w 1,000 ml @ 100 mls/ hr IV .BY DURATION [facility] Rx #:[id number] Sodium Chloride 0.9% 1, 120 220 40 000 ml @ 20 mls/hr IV . Q24H [facility] Rx#:[id number] Intake, IV Titration 1698 168 Amount ACETAMINOPHEN IV (For NPO 100 ) 1,000 mg In Empty Bag 1 bag @ 400 mls/hr IVPB Q6HR PRN Rx#:[id number] Mvi, Adult No.4 with Vit 462 168 K 10 ml Trace (Conc-1Ml/ Dose) 1 ml Potassium Chloride 30 meq In Amino Acid 5%-D15w+Lytes*E* 1, 000 ml @ 42 mls/hr IV . Q24H [facility] Rx#:[id number] Mvi, Adult No.4 with Vit 1036 K 10 ml Trace (Conc-1Ml/ Dose) 1 ml Sodium Acetate 20 meq Potassium Chloride 20 meq Magnesium Sulfate gm 1 gm Potassium Phosphate 9 mmol In Amino Acid 5%- D15w 1,000 ml @ 100 mls/ hr IV .BY DURATION [facility] Rx #:[id number] Potassium Chloride 20 meq 100 In Water For Injection 1 100ml.bag @ 50 mls/hr IVPB ONCE ONE Rx#: [id number] Output: Urine 1000 870 75 Other: Voiding Method Indwelling Catheter Indwelling Catheter ABP, PAP, CO, CI - Last Documented Arterial Blood Pressure 102/102 - Labs CBC & Chem 7: 05/05/19 04:00 05/05/19 04:00 Labs: Abnormal Lab Results - Last 24 Hours (Table) 05/04/19 05/04/19 05/04/19 Range/Units 11:44 18:33 21:24 ABG pH (7.35-7.45) ABG pCO2 (35-45) mmHg ABG pO2 (83-108) mmHg ABG HCO3 (21-25) mmol/L Chloride (98-107) mmol/L Carbon Dioxide (22-30) mmol/L BUN (9-20) mg/dL Glucose (74-99) mg/dL POC Glucose (mg/dL) 138 H 204 H (75-99) mg/dL Plasma Lactic Acid [place] 2.2 H* (0.7-2.0) mmol/L 05/04/19 05/05/19 05/05/19 Range/Units 23:54 04:00 04:01 ABG pH 7.48 H (7.35-7.45) ABG pCO2 27 L (35-45) mmHg ABG pO2 70 L (83-108) mmHg ABG HCO3 20 L (21-25) mmol/L Chloride 108 H (98-107) mmol/L Carbon Dioxide 21 L (22-30) mmol/L BUN 59 H (9-20) mg/dL Glucose 212 H (74-99) mg/dL POC Glucose (mg/dL) 155 H (75-99) mg/dL Plasma Lactic Acid [place] (0.7-2.0) mmol/L 05/05/19 Range/Units 06:19 ABG pH (7.35-7.45) ABG pCO2 (35-45) mmHg ABG pO2 (83-108) mmHg ABG HCO3 (21-25) mmol/L Chloride (98-107) mmol/L Carbon Dioxide (22-30) mmol/L BUN (9-20) mg/dL Glucose (74-99) mg/dL POC Glucose (mg/dL) 204 H (75-99) mg/dL Plasma Lactic Acid [place] (0.7-2.0) mmol/L Microbiology - Last 24 Hours (Table) 05/05/19 00:50 Sputum Culture - Preliminary Sputum 05/04/19 23:10 Urine Culture - Preliminary Urine,Catheterized 05/04/19 16:30 Catheter Tip Culture - Preliminary Catheter Tip Assessment and Plan (1) Respiratory failure Current Visit: Yes Status: Acute Code(s): J96.90 - RESPIRATORY FAILURE, UNSP, UNSP W HYPOXIA OR HYPERCAPNIA SNOMED Code(s): 327595190 (2) Pyrexia Current Visit: Yes Status: Acute Code(s): R50.9 - FEVER, UNSPECIFIED SNOMED Code(s): 168544728 (3) Status post tracheostomy Current Visit: Yes Status: Acute Code(s): Z93.0 - TRACHEOSTOMY STATUS SNOMED Code(s): 671330033 (4) Leukocytosis Current Visit: Yes Status: Acute Code(s): D72.829 - ELEVATED WHITE BLOOD CELL COUNT, UNSPECIFIED SNOMED Code(s): 846027350
[2019-05-05 11:54] LABS: Glucose,Whole Blood 182 mg/dL (75-99)
[2019-05-05] MEDS: SODIUM CHLORIDE 0.9% 1,000 ML IV SCH (12:01)
--- NOTE | 2019-05-05 12:11 | PN ---
PROGRESS NOTE DATE OF SERVICE: May 05, 2019 This is a 69-year-old male who was admitted way back on April 15 with an episode of colitis and abdominal pain. He apparently had an episode of aspiration on April 17 for that reason, developed hypoxemic respiratory failure and required intubation and mechanical ventilation on April 17. He did not wean initially and after a number of days, required tracheostomy to be performed on April 27, 10 days after being intubated. The patient has progressed very nicely to trach collar. Apparently last night he had some issues. His temperature went up to 105 degrees. He received Tylenol for that. He was re-cultured, blood urine and sputum. A cooling blanket was added. This morning, he is going to be placed on Zosyn 3.375 g q.8 hours. We are going to put him back on the ventilator with pressure support and CPAP at 10 and 5 respectively and give him a saline bolus of about 500 mL. The only other fluids that he is getting is TPN at 100 mL an hour. His trach collar is giving him oxygen at 28%. He looks a bit less awake today than he did yesterday. Finally, a central line was removed. The PICC line was replaced yesterday by Dr. Mello. PHYSICAL EXAMINATION: Current vital signs are reviewed. Temperature is 105.3, heart rate 125, respiratory rate is 20 to 30 breaths per minute. Blood pressure 146/84. Mean 104, saturations are 96% on trach collar. At PSV 10, CPAP of 5 and 35%, his saturations are even better. Appears in no acute distress, although he does not appear as awake as he was yesterday. HEENT examination is grossly unremarkable. NECK: Supple. Midline tracheostomy. No adenopathy or thyromegaly. Neck veins are flat. CARDIOVASCULAR examination reveals regular rhythm and rate. Heart rate about 120 beats per minute. He is in sinus rhythm. S1, S2 normal. LUNGS: Coarse rhonchi. Breath sounds are diminished. A few scattered crackles. No wheezes. ABDOMEN: Soft. Bowel sounds are noted. Extremities are intact. No cyanosis, clubbing, or edema. Skin without rash. NEUROLOGIC examination reveals depressed mental status. He does arouse. He does move all 4 extremities. Microbiologic studies are thus far all negative. Labs reviewed. White count 8.1, hemoglobin 14.8, hematocrit 45.4, platelet count 347,000. Blood gases show pO2 of 70, pCO2 27, pH is 7.48. This is consistent with a respiratory alkalosis. Sodium 141, potassium 4.3, chloride 108, CO2 21. BUN and creatinine 59 and 1.15. Anion gap is 12. The rest of the labs look okay. Medications are reviewed. ASSESSMENT: 1. Acute hypoxemic and hypercapnic respiratory failure secondary to bilateral acute hypoxemic and hypercapnic respiratory failure, secondary to bilateral aspiration pneumonia as well as a acute respiratory distress syndrome. Both of these situations have significantly improved. 2. Status post tracheostomy on April 27 secondary to failure to wean. 3. Mechanical ventilation beginning on April 17 for acute respiratory failure and aspiration pneumonia, now weaned to trach collar. 4. Acute colitis with possible cecal mass and abdominal distention, improved. 5. Evidence of colitis and diverticular disease on barium enema. 6. Failed swallow evaluation. 7. Benign essential hypertension. 8. History of alcohol abuse. 9. Sleep apnea syndrome. 10.Abdominal pain, improved. 11.History of gastroesophageal reflux disease. 12.Type 2 diabetes mellitus. Plan dated 05/04/2019 The patient is doing a bit worse today. He is quite febrile. He is getting Tylenol and a cooling blanket for that. We have re-cultured blood urine and sputum. We started him on Zosyn 3.375 g q.8 hours empirically. He is going to get a 0.5 L normal saline. The patient also is going to be placed back on the ventilator using pressure support of 10, CPAP of 5. His FiO2 was increased to 35%. Additional recommendations and suggestions are forthcoming. Chest x-ray, labs, medications and problem list are all reviewed. Overall, his condition obviously has worsened a bit. Additional recommendations and suggestions are forthcoming. Prognosis is very guarded. MMODL / IJN: [id number] / MTDBrittany
[2019-05-05] MEDS ORDERED: HYDROmorphone 1 MG/ML 1 ML SYRINGE IVP STA (14:02)
[2019-05-05] MEDS ORDERED: methylPREDNISolone SOD SUCCI 125 MG/2 ML VIAL IV STA (14:09)
[2019-05-05] MEDS: PROPOFOL 1,000 MG in EMPTY BAG 1 BAG IV SCH ×4 (15:08→22:04)
[2019-05-05] MEDS ORDERED: CISATRACURIUM 2 MG/ML 5 ML VIAL IV ONE (15:30)
--- NOTE | 2019-05-05 15:32 | XR ---
EXAMINATION TYPE: XR chest 1V portable DATE OF EXAM: 05/05/2019 COMPARISON: 05/05/2019 HISTORY: Unequal breath sounds. Shortness of breath. TECHNIQUE: Single frontal view of the chest is obtained. FINDINGS: Tracheostomy is again noted. There is new acute right infrahilar and basilar airspace disease and a n ew retrocardiac opacity. Cardiomediastinal silhouette is again enlarged and rotated to the left secon amador to patient positioning. Dextroscoliosis is seen as well as diffuse osseous demineralization. Rig ht-sided PICC is unchanged. IMPRESSION: Retrocardiac airspace disease and right basilar airspace disease that may represent multifocal pneumo jennifer in the appropriate clinical setting.
[2019-05-05] MEDS: CISATRACURIUM 200 MG in SODIUM CHLORIDE 0.9% 180 ML IV SCH (15:44)
[2019-05-05 16:08] LABS: ABG Base Excess -5.1 mmol/L; ABG HCO3 21 mmol/L (21-25); ABG Oxygen Saturation 96.8 % (94-97); ABG PCO2 42 mmHg (35-45); ABG PH 7.31 (7.35-7.45); ABG PO2 104 mmHg (83-108); ABG TCO2 22 mmol/L (19-24); Allen Test Performed? Yes
[2019-05-05] MEDS ORDERED: VANCOMYCIN IV PER PHARMACY 1 EACH MISC MISCELLANE PRN (16:09)
--- NOTE | 2019-05-05 16:45 | P.PN ---
Subjective Progress Note Date: 05/05/19 This is a 69-year-old male patient of Dr. Gallardo with past medical history of hypertension, hyperlipidemia, COPD, gastroesophageal reflux disease, remote history of tobacco use, obstructive sleep apnea not using CPAP. Patient complains of sudden onset of abdominal pain starting on Tuesday. He also complains of bloating in the abdomen for the past couple months as well as weight loss of 5-10 pounds over the past 3 months. He complains of decreased appetite. He states he has had occasional burgundy stools. He denies any black stools, no diarrhea, no vomiting. He denies any urinary symptoms. Patient states he had his last colonoscopy in 2013 which was normal. Patient presents to [facility] emergency center for evaluation. Abdominal x-ray shows no acute findings. CAT scan of the abdomen and pelvis showed marked thickening of the cecum concerning for malignancy. A nonspecific colitis is not excluded but felt to be less likely. Thickening in the gastric rugae which may be secondary to under distention versus a nonspecific gastritis. EKG is a sinus tachycardia with right bundle branch block, left AFB. WBC 16.7, hemoglobin 14.7, creatinine 0.74. Troponin negative. Amylase and lipase, liver function tests all normal. Urinalysis was clear with 1+ protein. Patient was admitted to the [facility] floor, consult with Dr. Givens, IV fluids, pain medications and Zofran. Plan is for colonoscopy tomorrow. 04/17: Overnight, patient developed acute respiratory failure and was transferred to the intensive care unit and patient placed on BiPAP, currently under care of Dr. Caballero. Patient subsequently intubated and placed on mechanical ventilation. Echocardiogram from yesterday reveals EF 55-60% with moderate concentric left ventricle hypertrophy, trace mitral regurgitation, trace tricuspid regurgitation, no pulmonary hypertension. No pericardial effusion. Chest x-ray shows new right basilar and pneumonic consolidation with diminished inspiration background right hilar and left basilar more patchy edema and or infiltrate felt present. Repeat chest x-ray shows new endotracheal tube with placement described with recommendations to pullback. Mild cardiomegaly and low lung volumes with bilateral hilar edema and/or infiltrate and right basilar consolidation all redemonstrated increasing left basilar infiltrate felt present. Abdomen was more distended and NG tube was placed. Immediate surgical consultation was requested by Dr. Caballero. Dr. Givens attempted bedside colonoscopy but patient was not properly prepped. He is scheduled for CAT scan of the abdomen and pelvis this afternoon at 2:30. NG tube is in place with bile color returned. Family members are in the waiting room and have been updated. 04/18: The patient remains in intensive care unit intubated and on mechanical ventilation. Vent settings have been decreased and no plan for sedation holiday today. He was weaned off norepinephrine this morning. Urine output has been 50-75 mL per hour. Noted that the Weston tube is pink but urine is alesia most likely a drug reaction. Patient has had several bowel movements this morning. Antibiotics have been switched to Zosyn and vancomycin. TSH 0.224 with normal free T4 at 1.24. Surgical consultation has been changed to Dr. Aranda per family wishes. 04/19: Patient remains in intensive care unit intubated and on mechanical ventilation. Patient has had increased purulent secretions and underwent reintubation by Dr. Caballero. He also perform bronchoscopy at the bedside and suction 20 ML's purulent material specimen was sent to the lab for cytology and culture. He is concern for ARDS. Patient is continued on Zosyn and vancomycin. He has been off vasopressors since yesterday morning. Patient has had a small amount of liquid stool today much decreased from yesterday. Dr. Aranda is on for surgery at this point. Patient is having minimal output from NG tube. Bowel sounds remain hypoactive. Consult has been added for GI regarding concern for ischemic colitis. 04/20: Patient remains intubated and on mechanical ventilation. Repeat chest x- ray shows continued mild to moderate heart failure. Small to moderate effusions with prominent bibasilar atelectasis and/or consolidation persists. Dr. Aranda is planning for bedside colonoscopy today. Patient was ordered for soapsuds enema last night and this morning. Tube feedings on hold. He has been afebrile, heart rate in the 50s and 60s, blood pressure 141/66. Pulse ox 99%. WBC 8.1, hemoglobin 11.2. Creatinine 0.65. Bronchial washing cytology is pending. Bronchial cultures in progress. Patient will need to start tube feedings or TPN depending on results of colonoscopy scheduled for this afternoon. Patient was given 1 dose of IV Lasix this morning and is diuresing well. Family in the waiting room have been updated. 04/21: Patient remains in the bed, FiO2 40%, PEEP of 6, NG tube has been placed and had taken out the OG tube, fecaloid billous contents are observed in the NG tube, bowel sounds are very diminished today, no bowel movements over the past 24 hours, x-rays of the abdomen will be done to evaluate for progressive bowel obstruction, patient remains to be afebrile, no leukocytosis bronchial washing cultures shows no normal zander vital signs are stable no hypotensive events, patient is slightly hypotensive on IV Solu-Medrol 40 every 8 04/23: Patient remains intubated and on mechanical ventilation. Dr. Dunham does not plan for attempt at weaning today. He is started him on hydralazine for blood pressure control. Patient has been started on TPN. On Tuesday, patient underwent colonoscopy with Dr. Aranda that revealed reticulosis, tortuous colon and recommends once patient is off ventilation to have barium enema to evaluate the ileocecal valve. Keep NG tube post extubation and hold tube feedings for now. No bowel movement today. 04/24: Patient had a rough night became significantly hypertensive, tachypneic and tachycardic. Patient was started on labetalol drip once other options were attempted without success and this was weaned off this morning. Patient also was placed on Nimbex and fentanyl drip which are to be weaned off today. Chest x-ray shows worsening interstitial infiltrates bilaterally and possible interstitial edema. Dr. Dunham increase Lasix to 40 mg IV push every 12 hours. Patient has not had a bowel movement. He remains on TPN and NG tube to suction. Urine output is adequate, tea-colored. Discussed yesterday the possibility of needing a trach and PEG with family members. At this time, Dr. Dunham would like to hold off. 04/25: Patient is still sedated on mechanical ventilation he had failed his weaning parameter today I want to see him when the and the son were in the room door tachycardia with Dr. dao about further plan. Pulmonary and from medicine standpoint patient most likely will need to go to trach no PEG tube can be done for now expected the plan probably for Tuesday and from thereon if more stable can go for his barium enema to come with final diagnosis of the tumor or the finding in the cecum and the large intestine and from thereon further management can be planned. Patient still on multiple drips for pain management let pressure TPN and DT. 04/26: A Chin still on mechanical ventilation, sedated, he is slightly bit awaking when backing off on sedation is still very agitated between having quite bed elevated blood pressure and pulse rate did not succeed on weaning parameter and most likely he will need tracheostomy by tomorrow. PEG tube is negative be possible at this point because of the possibility of mass in the cecum with obstruction cankerous problem if he is more stable can go for barium enema and then PEG tube if there is no cecal mass likely his CEA came back negative. 04/27 patient examined bedside currently intubated D 10. Patient came in with abdominal pain, nausea, vomiting followed by a respiratory failure the next day leading to intubation. Patient is found to be agitated him on ventilator. Currently requiring 75 mics of propofol. On vital evaluation patient had a heart rate of 77 respiratory rate 26 blood pressure 159/62 on clear with pain drip abdominal x-ray this morning shows nonspecific bowel pattern with the bilateral pleural effusion chest x-ray suggestive of pulmonary edema versus consolidation. Patient is currently on Lasix 40 mg IV twice a day and making good urine output 75 mL per hour. Blood cultures so far negative. Bronchoscopy results are negative so far. Plan for tracheostomy placement today. PEG tube is on hold until further information about the cecal mass/colitis. 04/28: Examined at bedside currently on CPAP. Patient was on a sedation holiday for approximately 1 hour sedation has been increased due to fatigue and agitation. Vital signs have been stable blood pressure 151/60 pulse ox a 97% on CPAP pulse rate 98. Patient was able to follow commands however weak. Patient was able to nod head and answer actions appropriately. Family at the bedside discussing plan of care. Continue nutritional support with TPN. 04/29: Patient examined bedside currently on CPAP tolerating. Patient is more alert today compared to yesterday. Patient is able to follow commands movements are weak and nods head appropriately to questions. Patient is on propofol at 10 at this time. She was on a sedation holiday however heart rate and blood pressure increase. Urinary output approximately 60-70 ML's per hour. Patient has not had a bowel movement continues with NG suction approximately 600-700 ML's output in 24 hours. 04/30: Patient is sitting up in bed does appear in less distress today he continues to have the trach in place we're trying to the patient on the ventilator hopefully he will be on trach collar tomorrow morning, family were at the bedside and updated about his situation he will be weaned off sedation completely liver on today he does not appear to be in acute distress at this time, we will hold off transfer the patient until after he weaned off. 05/01: Patient is sitting up in bed he is more awake and more alert is moving all his extremities currently has a trach collar in place, he continued to follow commands appropriately, his family were at the bedside and updated about his current situation. 05/02: Patient is sitting up in bed he continues to have ended in place, he continues to have the trach collar in place, is moving all his extremities, he is feeling better today he has no abdominal pain, he has not passed any gas and he has not had a bowel movement. 05/03: Patient remains in the intensive care unit. He has undergone barium enema today which revealed limited single contrast barium enema. Limited distention of the left side of the colon. There is proximal to mid sigmoid diverticulosis. There he reaches the cecum and refluxes multiple distal ileal loops. There is subtle contour irregularity of the cecum and mucosal lesion or colitis here is difficult to exclude. No frankly constricting lesion is seen. Repeat chest x- ray reveals correlate for congestive heart failure, pneumonia not excluded. Patient has been continued on TPN. Patient has a trach collar place at 28%. He has been hemodynamically stable. Not requiring vasopressors. Temperature max 100.0. White count is 12.7, potassium 3.4, creatinine 0.61. Blood sugars running between 155 and 181. 05/04: Patient remains in intensive care unit. Patient pulled his NG tube out yesterday and Dr Aranda to reevaluate as he did fail swallow evaluation. Speech therapy will reevaluate today as well. Patient is scheduled for PICC line placement today for TPN and central line will then be removed. Abdomen is soft. He has had good urine output. His temperature max 101.2 axillary. He is on IV Tylenol. Patient has worked with PT and OT and up to a chair. He is extremely fatigued following this activity. Patient will have an extended recovery phase. Ativan will be changed to only at bedtime if needed and Toradol added for pain versus Dilaudid. 05/05: Patient has worsened overnight, persistent fevers now high temperature of 10-103, patient was given cooling blanket, patient was seen in ICU, pancultures were obtained, patient's diaphoretic, tachypneic, labored breathing, pulmonary has restarted him on vent support through trach collar, significant tachypnea,. I requested infectious disease to see him, Dr. Kennedy, secondary to decompensation new high gradefevers,, troponins were ordered, EKG to be done, Solu-Medrol 3 doses to be given, patient has palate shallow ulcerations doesn't look viral, right decubitus stage II pressure ulcers, no petechiae or other rash noted,patient is on TPN, no bowel movement since admission per nursing staff Review Of Systems:unable secondary to sedation on vent Constitutional: Reports fever, no chills, no night sweats. Reports weakness, fatigue and lethargy. Reports daytime sleepiness. EENT: No headache. No blurred vision or double vision, no loss of vision. No loss of Hearing, no ringing in the ears, no dizziness. No nasal drainage or congestion. No epistaxis. No sore throat. Lungs: Reports shortness of breath, cough, no sputum production. No wheezing. Cardiovascular: No chest pain, no lower extremity edema. No palpitations. No paroxysmal nocturnal dyspnea. No orthopnea. No lightheadedness or dizziness. No syncopal episodes. Abdominal: No abdominal pain. No nausea, vomiting. No diarrhea. No constipation. No bloody or tarry stools.. No loss of appetite. Genitourinary: No dysuria, increased frequency, urgency. No urinary retention- weston in place. Musculoskeletal: No myalgias. Reports muscle weakness, reports gait dysfunction. No back pain. No neck pain. Integumentary: No wounds, no lesions. No rash or pruritus. No unusual bruising. No change in hair or nails. Neurologic: No aphasia. No facial droop. No change in mentation. No head injury. No headache. No paralysis. No paresthesia. Psychiatric: No depression. No anxiety. No mood swings. Endocrine: No abnormal blood sugars. No weight change. No excessive sweating or thirst. No cold intolerance. Objective - Vital Signs Vital signs: Vital Signs Temp 103.5 F H 05/05/19 16:00 Pulse 123 H 06/29/19 16:00 Resp 31 H 05/05/19 16:00 BP 149/92 05/05/19 16:00 Pulse Ox 99 05/05/19 16:00 Intake & Output 05/04/19 05/05/19 05/05/19 18:59 06:59 18:59 Intake Total 1839 1898 1802.4 Output Total 3866 792 9596 Balance 839 1028 607.4 Weight 96 kg 96 kg Intake: IV 141 1730 1200 ACETAMINOPHEN IV (For NPO 200 ) 1,000 mg In Empty Bag 1 bag @ 400 mls/hr IVPB Q6HR PRN Rx#:[id number] Fat Emulsion 20% 250 ml 21 210 In Empty Bag 1 bag @ 21 mls/hr IV DAILY@1800 [facility] Rx#:[id number] Mvi, Adult No.4 with Vit 300 K 10 ml Trace (Conc-1Ml/ Dose) 1 ml Sodium Acetate 20 meq Potassium Chloride 20 meq Magnesium Sulfate gm 1 gm Potassium Phosphate 9 mmol In Amino Acid 5%- D15w 1,000 ml @ 100 mls/ hr IV .BY DURATION ELA Rx #:[id number] Mvi, Adult No.4 with Vit 800 1000 K 10 ml Trace (Conc-1Ml/ Dose) 1 ml Sodium Acetate 20 meq Potassium Chloride 20 meq Magnesium Sulfate gm 1 gm Potassium Phosphate 9 mmol In Amino Acid 5%- D15w 1,000 ml @ 100 mls/ hr IV .BY DURATION [facility] Rx #:[id number] Sodium Chloride 0.9% 1, 120 220 200 000 ml @ 20 mls/hr IV . Q24H [facility] Rx#:[id number] Intake, IV Titration 1698 168 602.4 Amount ACETAMINOPHEN IV (For NPO 100 ) 1,000 mg In Empty Bag 1 bag @ 400 mls/hr IVPB Q6HR PRN Rx#:[id number] Cisatracurium 200 mg In 2.4 Sodium Chloride 0.9% 180 ml @ 1 MCG/KG/MIN 5.76 mls/hr IV .Q24H [facility] Rx#: [id number] Mvi, Adult No.4 with Vit 462 168 K 10 ml Trace (Conc-1Ml/ Dose) 1 ml Potassium Chloride 30 meq In Amino Acid 5%-D15w+Lytes*E* 1, 000 ml @ 42 mls/hr IV . Q24H [facility] Rx#:[id number] Mvi, Adult No.4 with Vit 1036 K 10 ml Trace (Conc-1Ml/ Dose) 1 ml Sodium Acetate 20 meq Potassium Chloride 20 meq Magnesium Sulfate gm 1 gm Potassium Phosphate 9 mmol In Amino Acid 5%- D15w 1,000 ml @ 100 mls/ hr IV .BY DURATION [facility] Rx #:[id number] Piperacillin-Tazobactam 3 100 .375 gm In Sodium Chloride 0.9% 100 ml @ 25 mls/hr IVPB Q8H [facility] Rx#: [id number] Potassium Chloride 20 meq 100 In Water For Injection 1 100ml.bag @ 50 mls/hr IVPB ONCE ONE Rx#: [id number] Sodium Chloride 0.9% 500 500 ml 500 ml @ 999 mls/hr IV .Q31M ONE Rx#:[id number] Output: Urine 6239 158 3177 Other: Voiding Method Indwelling Catheter Indwelling Catheter Indwelling Catheter ABP, PAP, CO, CI - Last Documented Arterial Blood Pressure 102/102 - Exam sedated on vent, trach collartachypneic and labored breathing - Constitutional General appearance: Present: cooperative, obese - EENT Eyes: Present: anicteric sclerae, PERRLA - Neck Neck: Present: normal ROM - Respiratory Respiratory: bilateral: diminished, rhonchi, negative: CTA, dullness, rales - Cardiovascular Rhythm: regular Heart sounds: normal: S1, S2 Abnormal Heart Sounds: Absent: systolic murmur, diastolic murmur, rub, S3 Gallop, S4 Gallop, click, other - Gastrointestinal General gastrointestinal: Present: decreased bowel sounds, soft - Integumentary Integumentary: Present: decreased turgor (diaphoretic) - Neurologic Neurologic Comment(s): absconded sedated on vent labored breathing - Labs CBC & Chem 7: 05/05/19 04:00 05/05/19 04:00 Labs: Abnormal Lab Results - Last 24 Hours (Table) 05/04/19 05/04/19 05/04/19 Range/Units 18:33 21:24 23:54 ABG pH (7.35-7.45) ABG pCO2 (35-45) mmHg ABG pO2 (83-108) mmHg ABG HCO3 (21-25) mmol/L Chloride (98-107) mmol/L Carbon Dioxide (22-30) mmol/L BUN (9-20) mg/dL Glucose (74-99) mg/dL POC Glucose (mg/dL) 204 H 155 H (75-99) mg/dL Plasma Lactic Acid Edmar 2.2 H* (0.7-2.0) mmol/L Troponin I (0.000-0.034) ng/mL 05/05/19 05/05/19 05/05/19 Range/Units 04:00 04:01 06: ABG pH 7.48 H (7.35-7.45) ABG pCO2 27 L (35-45) mmHg ABG pO2 70 L (83-108) mmHg ABG HCO3 20 L (21-25) mmol/L Chloride 108 H (98-107) mmol/L Carbon Dioxide 21 L (22-30) mmol/L BUN 59 H (9-20) mg/dL Glucose 212 H (74-99) mg/dL POC Glucose (mg/dL) 204 H (75-99) mg/dL Plasma Lactic Acid [place] (0.7-2.0) mmol/L Troponin I (0.000-0.034) ng/mL 05/05/19 05/05/19 05/05/19 Range/Units 11:50 14:14 16:06 ABG pH 7.31 L (7.35-7.45) ABG pCO2 (35-45) mmHg ABG pO2 (83-108) mmHg ABG HCO3 (21-25) mmol/L Chloride (98-107) mmol/L Carbon Dioxide (22-30) mmol/L BUN (9-20) mg/dL Glucose (74-99) mg/dL POC Glucose (mg/dL) 182 H (75-99) mg/dL Plasma Lactic Acid [place] (0.7-2.0) mmol/L Troponin I 0.158 H* (0.000-0.034) ng/mL Microbiology - Last 24 Hours (Table) 05/05/19 00:50 Gram Stain - Preliminary Sputum Sputum Culture - Preliminary 05/04/19 23:10 Urine Culture - Preliminary Urine,Catheterized 05/04/19 16:30 Catheter Tip Culture - Preliminary Catheter Tip Assessment and Plan Plan: 1. Abdominal pain, possible colitis, possible malignancy of the cecum, neither have been ruled out but CEA is less than 0.5.. Consult with Dr. Aranda. Continue IV fluids, Zosyn was discontinued on April 30. Barium study as above. Toradol added for pain. 2. Hypertension with episode of accelerated hypertension. Continue hydralazine, Vasotec as needed 3. Hyperlipidemia. 4. Gastroesophageal reflux disease and GI prophylaxis. Continue Protonix. 5. Mild COPD exacerbation. Continue DuoNeb treatments every 4 hours as needed. 6. Diabetes mellitus type 2, insulin requiring, uncontrolled with hyperglycemia. Metformin on hold. NovoLog scale before meals and at bedtime. NovoLog scale 7. Generalized anxiety disorder. Citalopram 40 mg daily on hold. 8. DVT prophylaxis. Heparin subcu. 9. Acute hypoxic and hypercapnic respiratory failure with bilateral pulmonary infiltrates and masslike consolidation in the right lower lobe most likely sec ondary to massive aspiration pneumonia, acute respiratory distress syndrome. Patient is status post bronchoscopy. Patient is status post trach. 10. Abdominal distention secondary to ileus. NG tube was pulled by accident. Consult with Dr. Aranda . 11. Obstructive sleep apnea noncompliant with CPAP. 12. Blood culture with coag-negative staph, contamination. 13. Delirium tremens, resolved. 14. Severe protein calorie malnutrition. Continue TPN. PICC line . Central line to be discontinued. 15. Sepsis, high-grade fevers noted, pending cultures has been obtained sputum urine and catheter tipfrom 05/04/2019. Consult with Dr. Kennedy 16. ARDS secondary to multifocal pneumonia, patient's on Zosyn, infectious disease consulted for closer monitoring, sputum cultures has been sent prognosis guarded Discharge plan: To be determined.
[2019-05-05] MEDS ORDERED: ANIDULAFUNGIN 200 MG in SODIUM CHLORIDE 0.9% 200 ML IVPB ONE (17:43)
[2019-05-05] MEDS: VANCOMYCIN 1,750 MG in SODIUM CHLORIDE 0.9% 500 ML 500 ML IVPB SCH (17:46)
[2019-05-05 17:57] LABS: Glucose,Whole Blood 227 mg/dL (75-99)
[2019-05-05] MEDS: FAT EMULSION 20% 250 ML in EMPTY BAG 1 BAG IV SCH (18:43)
[2019-05-05] MEDS: methylPREDNISolone SOD SUCCI 125 MG/2 ML VIAL IV SCH (18:43)
[2019-05-05] MEDS: ARTIFICIAL TEARS-HYPROMELLOSE DROPS 15 ML BTL BOTH EYES SCH (19:57)
--- NOTE | 2019-05-05 22:21 | P.CONS ---
History of Present Illness - Reason for Consult Consult date: 05/05/19 - Chief Complaint Abdominal pain - History of Present Illness 69 -year-old male presented to Hospital 19 days ago with significant abdominal pain. He has multiple underlying medical illnesses and shortly after admission was seen by surgery given the abnormalities seen on the CT scan. Apparently was being prepped for colonoscopy but developed an acute bout of respiratory failure possibly with significant aspiration event. The patient has now had over the weeks ongoing respiratory failure requiring tracheostomy placement. He is remained ventilator dependent and has also required TPN due to his lack of gastrointestinal function. Infectious disease consultation was requested given the onset of a high-grade fever of 105 occurring after his central line was removed and a PICC line was placed. Zosyn was started and consult was requested. The patient remains in intensive care unit intubated sedated paralyzed and the staff relates to improve fever after several Tylenol and fusions and a cooling blanket usage. Review of Systems ROS unobtainable: due to endotracheal tube Past Medical History Past Medical History: COPD, GERD/Reflux, Hyperlipidemia, Hypertension, Respiratory Disorder, Sleep Apnea/CPAP/BIPAP Additional Past Medical History / Comment(s): Morbid obesity, sleep apnea, chronic sinus disease, hypertension, hyperlipidemia, acid reflux, COPD, 12/2018: fell on ice and fractured 3 vertebrae History of Any Multi-Drug Resistant Organisms: None Reported Past Surgical History: Back Surgery, Hernia Repair Additional Past Surgical History / Comment(s): HIATAL HERNIA REPAIR, last colonoscopy 2013. Past Anesthesia/Blood Transfusion Reactions: No Reported Reaction Past Psychological History: No Psychological Hx Reported Smoking Status: Former smoker Past Alcohol Use History: Occasional Additional Past Alcohol Use History / Comment(s): Patient was a smoker of 2 packs per day for 50 years and quit 11/01/2018. He denies any illicit drug use, no alcohol abuse. He lives at home with his . He has a CPAP which she is not using. Past Drug Use History: None Reported Additional Drug Use History / Comment(s): PT SMOKES 1 PPD - Past Family History Father Additional Family Medical History / Comment(s): Father from pancreatic cancer. Mother Additional Family Medical History / Comment(s): Mother from aspirating Brother(s) Additional Family Medical History / Comment(s): Patient has 1 brother that from hepatitis from IV drug use. One brother is alive with history of CVA. Patient does not have any sisters. Patient has 3 sons with no major medical problems. Medications and Allergies Home Medications and Allergies Comment(s): Current Medications Albuterol/Ipratropium (Duoneb 0.5 Mg-3 Mg/3 Ml Soln) 3 ml INHALATION RT-Q4H PRN PRN Reason: Shortness Of Breath Or Wheezing Last Admin: 04/16/19 20:57 Dose: 3 ml Documented by: Albuterol/Ipratropium (Duoneb 0.5 Mg-3 Mg/3 Ml Soln) 3 ml INHALATION RT-QID [facility] Last Admin: 05/05/19 19:25 Dose: 3 ml Documented by: Artificial Tears (Artificial Tear Drops) 2 drops BOTH EYES Q4HR [facility] Last Admin: 05/05/19 19:57 Dose: 2 drops Documented by: Enalaprilat (Vasotec) 1.25 mg IVP Q6HR PRN PRN Reason: SBP >160 Last Admin: 04/29/19 12:40 Dose: 1.25 mg Documented by: Heparin Sodium (Porcine) (Heparin) 5,000 unit SQ Q12HR [facility] Last Admin: 05/05/19 20:12 Dose: 5,000 unit Documented by: Hydralazine HCl (Apresoline) 20 mg IVP Q6HR PRN PRN Reason: Blood Pressure - High Last Admin: 04/29/19 20:38 Dose: 20 mg Documented by: Hydromorphone HCl (Dilaudid) 0.5 mg IVP Q3HR PRN PRN Reason: Severe Pain Last Admin: 05/05/19 12:50 Dose: 0.5 mg Documented by: Sodium Chloride (Saline 0.9%) 1,000 mls @ 20 mls/hr IV .Q24H [facility] Last Admin: 05/05/19 12:01 Dose: 20 mls/hr Documented by: Fat Emulsion Intravenous 250 (ml/ IV Solution) 250 mls @ 21 mls/hr IV DAILY@1800 [facility] Last Admin: 05/05/19 18:43 Dose: 21 mls/hr Documented by: Parenteral Vitamin Supplement 10 ml/ Chromium/Copper/Manganese/Seleni/Zn 1 ml/Sodium Acetate 20 meq/Potassium Chloride 14 meq/Magnesium Sulfate 1 gm/Potassium Phosphate 12 mmol/Amino Acids/Dextrose 1,034 mls @ 100 mls/hr IV .BY DURATION [facility] Last Admin: 05/05/19 21:26 Dose: 100 mls/hr Documented by: Sodium Acetate 20 meq/Potassium Chloride 14 meq/Magnesium Sulfate 1 gm/Potassium Phosphate 12 mmol/Amino Acids/Dextrose 1,023 mls @ 100 mls/hr IV .BY DURATION [facility] Last Admin: 05/05/19 10:48 Dose: Not Given Documented by: Acetaminophen 1,000 mg/ IV (Solution) 100 mls @ 400 mls/hr IVPB Q6HR PRN PRN Reason: Fever Stop: 05/06/19 06:14 Last Admin: 05/05/19 15:56 Dose: 400 mls/hr Documented by: Piperacillin Sod/Tazobactam (Sod 3.375 gm/ Sodium Chloride) 100 mls @ 25 mls/hr IVPB Q8H [facility] Last Admin: 05/05/19 19:58 Dose: 25 mls/hr Documented by: Propofol 1,000 mg/ IV Solution 100 mls @ 0 mls/hr IV .Q0M [facility]; Protocol Last Admin: 05/05/19 22:04 Dose: 75 mcg/kg/min, 43.2 mls/hr Documented by: Cisatracurium Besylate 200 mg/ (Sodium Chloride) 200 mls @ 5.76 mls/hr IV .Q24H [facility]; Protocol Last Titration: 05/05/19 16:09 Dose: 2 mcg/kg/min, 11.52 mls/hr Documented by: Vancomycin HCl 1,750 mg/ (Sodium Chloride) 500 mls @ 167 mls/hr IVPB Q12H [facility] Last Admin: 05/05/19 17:46 Dose: 167 mls/hr Documented by: Anidulafungin 100 mg/ Sodium (Chloride) 130 mls @ 84 mls/hr IVPB DAILY [facility] Insulin Aspart (Novolog) 0 unit SQ Q6H [facility]; Protocol Last Admin: 05/05/19 18:44 Dose: 7 unit Documented by: Methylprednisolone Sodium Succinate (Solu-Medrol) 60 mg IV Q6HR [facility] Last Admin: 05/05/19 18:43 Dose: 60 mg Documented by: Miscellaneous Information (Magnesium Per Protocol) 1 each MISCELLANE DAILY PRN; Protocol PRN Reason: Per Protocol Miscellaneous Information (Potassium Per Protocol) 1 each MISCELLANE DAILY PRN; Protocol PRN Reason: Per Protocol Naloxone HCl (Narcan) 0.2 mg IV Q2M PRN PRN Reason: Opioid Reversal Ondansetron HCl (Zofran) 4 mg IVP Q6HR PRN PRN Reason: Nausea And Vomiting Last Admin: 04/17/19 01:38 Dose: 4 mg Documented by: Pantoprazole Sodium (Protonix) 40 mg IV DAILY ELA Last Admin: 05/05/19 09:25 Dose: 40 mg Documented by: Sodium Chloride (Saline Flush) 10 ml IV Q4HR PRN PRN Reason: PICC Line Sodium Chloride (Saline Flush) 10 ml IV WEEKLY ELA Sodium Chloride (Saline Flush) 20 ml IV Q4HR PRN PRN Reason: PICC Line Home Medications Medication Instructions Recorded Confirmed Type Citalopram Hydrobromide 40 mg PO DAILY 03/20/14 04/16/19 History [Citalopram HBr] Lisinopril 40 mg PO DAILY 03/20/14 04/16/19 History Albuterol Inhaler [Ventolin Hfa 1 - 2 puff INHALATION RT-QID PRN 04/16/19 04/16/19 History Inhaler] Aspirin EC [Ecotrin Low Dose] 81 mg PO DAILY 04/16/19 04/16/19 History Baclofen [Lioresal] 10 mg PO BID PRN 04/16/19 04/16/19 History Esomeprazole Magnesium [NexIUM] 20 mg PO DAILY 04/16/19 04/16/19 History Fish Oil/Dha/Epa [Fish Oil 1,200 1 cap PO DAILY 04/16/19 04/16/19 History mg Fish Oil] Fluticasone/Salmeterol [Advair 1 puff INHALATION RT-BID 04/16/19 04/16/19 History 500-50 Diskus] Gemfibrozil [Lopid] 600 mg PO AC-BID 04/16/19 04/16/19 History HYDROcodone/APAP 7.5-325MG [Francitas 1 tab PO Q12H PRN 04/16/19 04/16/19 History 7.5-325] Metoclopramide [Reglan] 5 mg PO TID 04/16/19 04/16/19 History Niacin 500 mg PO DAILY 04/16/19 04/16/19 History Potassium Gluconate 99 mg PO DAILY 04/16/19 04/16/19 History Rosuvastatin [Crestor] 20 mg PO DAILY 04/16/19 04/16/19 History Ubidecarenone [Co Q-10] 200 mg PO DAILY 04/16/19 04/16/19 History metFORMIN HCL [Glucophage] 500 mg PO BID 04/16/19 04/16/19 History Allergies Allergy/AdvReac Type Severity Reaction Status Date / Time No Known Allergies Allergy Verified 04/16/19 10:30 Physical Exam Vitals: Vital Signs Temp Pulse Resp BP Pulse Ox 05/05/19 21:00 96.8 F L 98 20 131/92 98 05/05/19 20:00 97.9 F 101 H 21 125/84 98 05/05/19 19:35 102 H 05/05/19 19:27 104 H 05/05/19 19:00 99.1 F 105 H 20 131/88 98 05/05/19 18:00 108 H 20 133/83 98 05/05/19 17:20 102.0 F H 05/05/19 17:15 101 H 05/05/19 17:03 103 H 05/05/19 17:00 105 H 21 106/74 98 05/05/19 16:00 103.5 F H 123 H 31 H 149/92 99 05/05/19 15:00 115 H 34 H 106/66 96 05/05/19 14:00 116 H 36 H 121/78 94 L 05/05/19 13:00 102.9 F H 125 H 26 H 132/79 98 05/05/19 12:00 102.0 F H 113 H 26 H 109/66 97 05/05/19 11:00 102.4 F H 117 H 22 121/74 98 05/05/19 10:52 114 H 05/05/19 10:38 120 H 05/05/19 10:00 125 H 31 H 125/61 98 05/05/19 09:00 105.3 F H 125 H 68 H 146/84 96 05/05/19 08:00 103.5 F H 122 H 35 H 114/83 94 L 05/05/19 07:55 102.7 F H 05/05/19 07:20 114 H 05/05/19 07:09 114 H 05/05/19 07:00 120 H 28 H 129/79 95 05/05/19 06:00 102.0 F H 108 H 39 H 120/69 95 05/05/19 05:01 112 H 41 H 119/76 96 05/05/19 04:28 101.5 F H 05/05/19 04:00 103 F H 118 H 44 H 119/76 96 05/05/19 03:00 120 H 40 H 127/77 96 05/05/19 02:00 116 H 36 H 127/77 96 05/05/19 01:00 114 H 33 H 119/77 93 L 05/05/19 00:06 115 H 38 H 119/77 96 05/05/19 00:00 99.6 F 118 H 36 H 119/77 95 05/04/19 23:38 95 05/04/19 23:00 109 H 34 H 133/69 96 05/04/19 22:00 118 H 18 133/79 92 L Intake and Output 05/05/19 05/05/19 05/05/19 06:59 14:59 22:59 Intake Total 1486 1560 3046.4 Output Total 625 1015 1425 Balance 965 222 2013.4 Intake: IV 1486 960 960 ACETAMINOPHEN IV (For NPO 100 ) 1,000 mg In Empty Bag 1 bag @ 400 mls/hr IVPB Q6HR PRN Rx#:[id number] Fat Emulsion 20% 250 ml 126 In Empty Bag 1 bag @ 21 mls/hr IV DAILY@1800 [facility] Rx#:[id number] Mvi, Adult No.4 with Vit 300 K 10 ml Trace (Conc-1Ml/ Dose) 1 ml Sodium Acetate 20 meq Potassium Chloride 20 meq Magnesium Sulfate gm 1 gm Potassium Phosphate 9 mmol In Amino Acid 5%- D15w 1,000 ml @ 100 mls/ hr IV .BY DURATION [facility] Rx #:[id number] Mvi, Adult No.4 with Vit 800 800 700 K 10 ml Trace (Conc-1Ml/ Dose) 1 ml Sodium Acetate 20 meq Potassium Chloride 20 meq Magnesium Sulfate gm 1 gm Potassium Phosphate 9 mmol In Amino Acid 5%- D15w 1,000 ml @ 100 mls/ hr IV .BY DURATION [facility] Rx #:[id number] Piperacillin-Tazobactam 3 100 .375 gm In Sodium Chloride 0.9% 100 ml @ 25 mls/hr IVPB Q8H [facility] Rx#: [id number] Sodium Chloride 0.9% 1, 160 160 160 000 ml @ 20 mls/hr IV . Q24H [facility] Rx#:[id number] Intake, IV Titration 600 2086.4 Amount Anidulafungin 100 mg In 100 Sodium Chloride 0.9% 100 ml @ 84 mls/hr IVPB DAILY [facility] Rx#:[id number] Cisatracurium 200 mg In 2.4 Sodium Chloride 0.9% 180 ml @ 1 MCG/KG/MIN 5.76 mls/hr IV .Q24H [facility] Rx#: [id number] Fat Emulsion 20% 250 ml 250 In Empty Bag 1 bag @ 21 mls/hr IV DAILY@1800 [facility] Rx#:[id number] Mvi, Adult No.4 with Vit 1034 K 10 ml Trace (Conc-1Ml/ Dose) 1 ml Sodium Acetate 20 meq Potassium Chloride 14 meq Magnesium Sulfate gm 1 gm Potassium Phosphate 12 mmol In Amino Acid 5%- D15w 1,000 ml @ 100 mls/ hr IV .BY DURATION [facility] Rx #:[id number] Piperacillin-Tazobactam 3 100 .375 gm In Sodium Chloride 0.9% 100 ml @ 25 mls/hr IVPB Q8H [facility] Rx#: [id number] Propofol 1,000 mg In 200 Empty Bag 1 bag @ Titrate IV .Q0M [facility] Rx#: [id number] Sodium Chloride 0.9% 500 500 ml 500 ml @ 999 mls/hr IV .Q31M ONE Rx#:[id number] Vancomycin 1,750 mg In 500 Sodium Chloride 0.9% 500 ml 500 ml @ 167 mls/hr IVPB Q12H [facility] Rx#: [id number] Output: Urine 625 1015 1425 Other: Voiding Method Indwelling Catheter Indwelling Catheter Indwelling Catheter Weight 96 kg 69-year-old male remains mechanically ventilated via his tracheostomy. Dual- lumen PICC line right arm IV left arm HEENT: Anicteric conjunctiva are pink and moist nasal mucosa grossly intact without significant lesions, there is no thrush. Oral mucosa is evidence of so me ulceration related to his recent endotracheal tube. Neck: The neck is supple without significant lymphadenopathy or thyromegaly. Lungs: There is symmetrical air entry, there are bibasilar crackles, few wheezes are heard Heart: Irregular with an audible S1 and S2 soft S4 no distinct murmur click or a PMI is nondisplaced of urethral Abdomen: Obese Positive bowel sounds soft only minimally distended at this time without palpable masses or organomegaly. Patient is paralyzed and constantly rigidity cannot be determined. Extremities: IV sites are noted as above and intact. He has lower extremity edema. Ecchymosis from prior IVs are noted Neuro: Sedated and paralyzed Results CBC & Chem 7: 05/05/19 04:00 05/05/19 04:00 Labs: Abnormal Lab Results - Last 24 Hours (Table) 05/04/19 05/04/19 05/05/19 Range/Units 21:24 23:54 04:00 ABG pH (7.35-7.45) ABG pCO2 (35-45) mmHg ABG pO2 (83-108) mmHg ABG HCO3 (21-25) mmol/L Chloride 108 H (98-107) mmol/L Carbon Dioxide 21 L (22-30) mmol/L BUN 59 H (9-20) mg/dL Glucose 212 H (74-99) mg/dL POC Glucose (mg/dL) 155 H (75-99) mg/dL Plasma Lactic Acid [place] 2.2 H* (0.7-2.0) mmol/L Troponin I (0.000-0.034) ng/mL 05/05/19 05/05/19 05/05/19 Range/Units 04:01 06:19 11:50 ABG pH 7.48 H (7.35-7.45) ABG pCO2 27 L (35-45) mmHg ABG pO2 70 L (83-108) mmHg ABG HCO3 20 L (21-25) mmol/L Chloride (98-107) mmol/L Carbon Dioxide (22-30) mmol/L BUN (9-20) mg/dL Glucose (74-99) mg/dL POC Glucose (mg/dL) 204 H 182 H (75-99) mg/dL Plasma Lactic Acid [place] (0.7-2.0) mmol/L Troponin I (0.000-0.034) ng/mL 05/05/19 05/05/19 05/05/19 Range/Units 14:14 16:06 17:54 ABG pH 7.31 L (7.35-7.45) ABG pCO2 (35-45) mmHg ABG pO2 (83-108) mmHg ABG HCO3 (21-25) mmol/L Chloride (98-107) mmol/L Carbon Dioxide (22-30) mmol/L BUN (9-20) mg/dL Glucose (74-99) mg/dL POC Glucose (mg/dL) 227 H (75-99) mg/dL Plasma Lactic Acid [place] (0.7-2.0) mmol/L Troponin I 0.158 H* (0.000-0.034) ng/mL 05/05/19 Range/Units 20:15 ABG pH (7.35-7.45) ABG pCO2 (35-45) mmHg ABG pO2 (83-108) mmHg ABG HCO3 (21-25) mmol/L Chloride (98-107) mmol/L Carbon Dioxide (22-30) mmol/L BUN (9-20) mg/dL Glucose (74-99) mg/dL POC Glucose (mg/dL) (75-99) mg/dL Plasma Lactic Acid [place] (0.7-2.0) mmol/L Troponin I 0.078 H* (0.000-0.034) ng/mL Microbiology - Last 24 Hours (Table) 05/05/19 00:50 Gram Stain - Preliminary Sputum Sputum Culture - Preliminary 05/04/19 23:10 Urine Culture - Preliminary Urine,Catheterized 05/04/19 16:30 Catheter Tip Culture - Preliminary Catheter Tip Laboratory Results WBC 8.1 k/uL (3.8-10.6) 05/05/19 04:00 RBC 4.86 m/uL (4.30-5.90) 05/05/19 04:00 Hgb 14.8 gm/dL (13.0-17.5) 05/05/19 04:00 Hct 45.4 % (39.0-53.0) 05/05/19 04:00 MCV 93.4 fL (80.0-100.0) 05/05/19 04:00 MCH 30.6 pg (25.0-35.0) 05/05/19 04:00 MCHC 32.7 g/dL (31.0-37.0) 05/05/19 04:00 RDW 13.6 % (11.5-15.5) 05/05/19 04:00 Plt Count 247 k/uL (150-450) 05/05/19 04:00 Neutrophils % 84 % 04/29/19 05:41 Neutrophils % (Manual) 68 % 04/21/19 04:00 Band Neutrophils % 7 % 04/21/19 04:00 Lymphocytes % 9 % 04/29/19 05:41 Lymphocytes % (Manual) 13 % 04/21/19 04:00 Monocytes % 5 % 04/29/19 05:41 Monocytes % (Manual) 2 % 04/21/19 04:00 Eosinophils % 0 % 04/29/19 05:41 Eosinophils % (Manual) 4 % 04/21/19 04:00 Basophils % 0 % 04/29/19 05:41 Metamyelocytes % 6 % 04/21/19 04:00 Neutrophils # 7.9 k/uL (1.3-7.7) H 04/29/19 05:41 Neutrophils # (Manual) 5.10 k/uL (1.3-7.7) 04/21/19 04:00 Lymphocytes # 0.9 k/uL (1.0-4.8) L 04/29/19 05:41 Lymphocytes # (Manual) 0.88 k/uL (1.0-4.8) L 04/21/19 04:00 Monocytes # 0.5 k/uL (0-1.0) 04/29/19 05:41 Monocytes # (Manual) 0.14 k/uL (0-1.0) 04/21/19 04:00 Eosinophils # 0.0 k/uL (0-0.7) 04/29/19 05:41 Eosinophils # (Manual) 0.27 k/uL (0-0.7) 04/21/19 04:00 Basophils # 0.0 k/uL (0-0.2) 04/29/19 05:41 Metamyelocytes # (Man) 0.41 k/uL (0) H 04/21/19 04:00 Nucleated RBCs 0 /100 WBC (0-0) 04/21/19 04:00 Manual Slide Review Performed 04/21/19 04:00 PT 11.8 sec (9.0-12.0) 05/04/19 11:06 INR 1.1 (<1.2) 05/04/19 11:06 APTT 22.5 sec (22.0-30.0) 04/17/19 08:13 Sample Site RRAD 05/05/19 16:06 ABG pH 7.31 (7.35-7.45) L 05/05/19 16:06 ABG pCO2 42 mmHg (35-45) 05/05/19 16:06 ABG pO2 104 mmHg (83-108) 05/05/19 16:06 ABG HCO3 21 mmol/L (21-25) 05/05/19 16:06 ABG Total CO2 22 mmol/L (19-24) 05/05/19 16:06 ABG O2 Saturation 96.8 % (94-97) 05/05/19 16:06 ABG Base Excess -5.1 mmol/L 05/05/19 16:06 Ric Test Yes 05/05/19 16:06 ABG Lactic Acid 1.7 mmol/L (0.5-1.6) H 04/17/19 08:07 FiO2 50 % 05/05/19 16:06 Sodium 141 mmol/L (137-145) 05/05/19 04:00 Potassium 4.3 mmol/L (3.5-5.1) 05/05/19 04:00 Chloride 108 mmol/L (98-107) H 05/05/19 04:00 Carbon Dioxide 21 mmol/L (22-30) L 05/05/19 04:00 Anion Gap 12 mmol/L 05/05/19 04:00 BUN 59 mg/dL (9-20) H 05/05/19 04:00 Creatinine 1.15 mg/dL (0.66-1.25) 05/05/19 04:00 Est GFR (CKD-EPI)AfAm 75 (>60 ml/min/1.73 sqM) 05/05/19 04:00 Est GFR (CKD-EPI)NonAf 65 (>60 ml/min/1.73 sqM) 05/05/19 04:00 Glucose 212 mg/dL (74-99) H 05/05/19 04:00 POC Glucose (mg/dL) 227 mg/dL (75-99) H 05/05/19 17:54 POC Glu [employer]ric Lay Out Worker ID Hortensia Elder 05/05/19 17:54 Lactic Ac Sepsis Rflx Y 05/04/19 21:55 Plasma Lactic Acid [place] 1.9 mmol/L (0.7-2.0) 05/05/19 01:21 Calcium 9.9 mg/dL (8.4-10.2) 05/05/19 04:00 Ionized Calcium [place] 5.5 mg/dL (4.5-5.3) H 05/01/19 04:50 Phosphorus 2.6 mg/dL (2.5-4.5) 05/05/19 04:00 Magnesium 2.3 mg/dL (1.6-2.3) 05/05/19 04:00 Total Bilirubin 0.9 mg/dL (0.2-1.3) 04/25/19 04:44 AST 120 U/L (17-59) H 04/25/19 04:44 ALT 138 U/L (21-72) H 04/25/19 04:44 Alkaline Phosphatase 72 U/L (38-126) 04/25/19 04:44 Troponin I 0.078 ng/mL (0.000-0.034) H* 05/05/19 20:15 NT-Pro-B Natriuret Pep 50 pg/mL 05/05/19 14:14 Total Protein 5.9 g/dL (6.3-8.2) L 04/25/19 04:44 Albumin 3.1 g/dL (3.5-5.0) L 04/25/19 04:44 Triglycerides 683 mg/dL (<150) H 04/21/19 11:00 Amylase 40 U/L (30-110) 04/15/19 22:45 Lipase 56 U/L (23-300) 04/15/19 22:45 Carcinoembryonic Ag <0.5 ng/mL (0.0-4.9) 04/25/19 04:44 TSH 0.244 mIU/L (0.465-4.680) L 04/18/19 04:10 Free T4 1.24 ng/dL (0.78-2.19) 04/18/19 04:10 Urine Color Yellow 04/17/19 15:20 Urine Appearance Cloudy (Clear) 04/17/19 15:20 Urine pH 5.5 (5.0-8.0) 04/17/19 15:20 Ur Specific [place] 1.016 (1.001-1.035) 04/17/19 15:20 Urine Protein Trace (Negative) H 04/17/19 15:20 Urine Glucose (UA) Negative (Negative) 04/17/19 15:20 Urine Ketones Negative (Negative) 04/17/19 15:20 Urine Blood Moderate (Negative) H 04/17/19 15:20 Urine Nitrite Negative (Negative) 04/17/19 15:20 Urine Bilirubin Negative (Negative) 04/17/19 15:20 Urine Urobilinogen 3.0 mg/dL (<2.0) 04/17/19 15:20 Ur Leukocyte Esterase Negative (Negative) 04/17/19 15:20 Urine RBC >182 /hpf (0-5) H 04/17/19 15:20 Urine WBC 4 /hpf (0-5) 04/17/19 15:20 Amorphous Sediment Rare /hpf (None) H 04/17/19 15:20 Hyaline Casts 23 /lpf (0-2) H 04/17/19 15:20 Urine Mucus Few /hpf (None) H 04/17/19 15:20 Vancomycin Trough 21.9 ug/mL 04/28/19 17:34 Virus Source See Below 04/19/19 09:28 Viral Test See Below H 04/19/19 09:28 Virus Analysis Interp See Below 04/19/19 09:28 Microbiology 05/05/19 00:50 Sputum Gram Stain - Preliminary 05/05/19 00:50 Sputum Sputum Culture - Preliminary 05/04/19 23:10 Urine,Catheterized Urine Culture - Preliminary 05/04/19 16:30 Catheter Tip Catheter Tip Culture - Preliminary 04/19/19 09:28 Bronchoalviolar Lavage - Left Acid Fast Bacilli Smear - Final 04/19/19 09:28 Bronchoalviolar Lavage - Left Acid Fast Bacilli Culture - Preliminary 04/19/19 09:28 Bronchoalviolar Lavage - Left Fungal Culture - Preliminary 04/17/19 08:09 Blood Blood Culture - Final No Growth after 144 hours 04/15/19 22:45 Blood Blood Culture - Final No Growth after 144 hours 04/19/19 09:28 Bronchoalviolar Lavage - Left Gram Stain - Final 04/19/19 09:28 Bronchoalviolar Lavage - Left Bronchial Washings Culture - Final 04/17/19 08:07 Blood Blood Culture Gram Stain - Final 04/17/19 08:07 Blood Blood Culture - Final Coagulase Negative Staph 04/18/19 12:35 Urine,Catheterized Urine Culture - Final 04/17/19 08:26 Sputum Gram Stain - Final 04/17/19 08:26 Sputum Sputum Culture - Final 04/17/19 08:07 Blood Blood Culture - Final Chest x-ray: image reviewed (New multifocal infiltrate) Assessment and Plan (1) Abdominal pain Current Visit: Yes Status: Acute Code(s): R10.9 - UNSPECIFIED ABDOMINAL PAIN SNOMED Code(s): 78721087 (2) Mass of cecum Current Visit: Yes Status: Acute Code(s): K63.9 - DISEASE OF INTESTINE, UNSPECIFIED SNOMED Code(s): 307284770 (3) Status post tracheostomy Current Visit: Yes Status: Acute Code(s): Z93.0 - TRACHEOSTOMY STATUS SNOMED Code(s): 423981334 (4) Multifocal pneumonia Narrative/Plan: 69-year-old male who presented to Hospital 19 days prior with severe abdominal pain. He also had distinct distention. Imaging studies at admission reveal evidence of a cecal mass. The patient did have a barium enema that was performed that doesn't. Also showed the difficulty at the cecal area. Review the data reveals a colonoscopy could not be performed. The patient developed respiratory failure, and is remained mechanically ventilated since early in his admission. Tracheostomy was required. He also had IV access via triple lumen catheter to the left subclavian area. This was removed yesterday. Shortly after its removal the patient developed high-grade fever or 105 has had persistent fever since that point in time. Deficits in is concerned that biofilm buildup on the catheter after its removal resulted in the current septic event. Review of the medications does not reveal any significant new medications over the last short period of time before the onset of the fever. No agents were seen that her highly associated with an NMS. With Tylenol and c ooling blanket temperature is improved and is now down to about 101. The patient's ventilatory status is stable, urine output appears to be adequate. Chest x-ray shows evidence of new multifocal pneumonia is a very significant potential for sepsis at this time. Antibiotic therapy with Zosyn was added, vancomycin is added at this time and given his long-term TPN use Eraxis is added for fungal cultures are pending from the blood. Continue supportive care prognosis is poor. Current Visit: Yes Status: Acute Code(s): J18.9 - PNEUMONIA, UNSPECIFIED ORGANISM SNOMED Code(s): 785504760
[2019-05-06 00:04] LABS: Glucose,Whole Blood 378 mg/dL (75-99)
[2019-05-06 00:04] LABS: Glucose,Whole Blood 369 mg/dL (75-99)
[2019-05-06] MEDS: INSULIN ASPART (NovoLOG) 100 UNIT/ML VIAL SQ SCH (00:38)
[2019-05-06] MEDS: methylPREDNISolone SOD SUCCI 125 MG/2 ML VIAL IV SCH ×2 (00:43→05:28)
[2019-05-06] MEDS: ARTIFICIAL TEARS-HYPROMELLOSE DROPS 15 ML BTL BOTH EYES SCH ×7 (00:44→23:14)
[2019-05-06] MEDS: INSULIN REGULAR 100 UNIT in SODIUM CHLORIDE 0.9% 100 ML IV SCH ×5 (01:15→17:06)
[2019-05-06 01:18] LABS: Glucose,Whole Blood 404 mg/dL (75-99)
[2019-05-06 02:07] LABS: Glucose,Whole Blood 402 mg/dL (75-99)
[2019-05-06 03:08] LABS: Glucose,Whole Blood 422 mg/dL (75-99)
[2019-05-06] MEDS ORDERED: INSULIN NPH 300 UNIT/3 ML VIAL SQ STA (03:10)
[2019-05-06] MEDS: PROPOFOL 1,000 MG in EMPTY BAG 1 BAG IV SCH ×9 (03:35→20:18)
[2019-05-06] MEDS: PIPERACILLIN-TAZOBACTAM 3.375 GM in SODIUM CHLORIDE 0.9% 100 ML IVPB SCH ×3 (03:36→20:11)
[2019-05-06 04:13] LABS: Glucose,Whole Blood 378 mg/dL (75-99)
[2019-05-06] MEDS: VANCOMYCIN 1,750 MG in SODIUM CHLORIDE 0.9% 500 ML 500 ML IVPB SCH (04:15)
[2019-05-06 04:43] LABS: ABG Base Excess -6.8 mmol/L; ABG HCO3 22 mmol/L (21-25); ABG Oxygen Saturation 95.9 % (94-97); ABG PCO2 60 mmHg (35-45); ABG PO2 97 mmHg (83-108); ABG TCO2 24 mmol/L (19-24); Allen Test Performed? Yes
[2019-05-06 04:45] LABS: ABG PH 7.17 (7.35-7.45)
[2019-05-06 05:15] LABS: Glucose,Whole Blood 350 mg/dL (75-99)
[2019-05-06 05:54] LABS: Basophils % (A) 0 %; Eosinophils # (A) 0.1 k/uL (0-0.7); Eosinophils % (A) 1 %; HCT 45.7 % (39.0-53.0); HGB 14.2 gm/dL (13.0-17.5); Hypochromasia Moderate; Lymphocytes # (A) 0.5 k/uL (1.0-4.8); Lymphocytes % (A) 3 %; MCH 30.2 pg (25.0-35.0); MCHC 31.1 g/dL (31.0-37.0); MCV 97.1 fL (80.0-100.0); Mean Platelet Volume 7.9; Monocytes # (A) 0.2 k/uL (0-1.0); Monocytes % (A) 1 %; Neutrophils % (A) 94 %; Platelet Count 201 k/uL (150-450); RDW 13.5 % (11.5-15.5); WBC 14.8 k/uL (3.8-10.6)
--- NOTE | 2019-05-06 05:57 | XR ---
EXAMINATION TYPE: XR chest 1V portable DATE OF EXAM: 05/06/2019 HISTORY: shortness of breath. REFERENCE: Previous study dated 05/05/2019. FINDINGS: There is a tracheostomy tube in place. Its tip overlies the tracheal air column a single fr ontal projection. There is improved aeration of both lung bases. There continues to be some bibasilar airspace disease. I suspect small effusions. IMPRESSION: IMPROVED AERATION, BOTH LUNG BASES.
--- NOTE | 2019-05-06 05:59 | XR ---
EXAMINATION TYPE: XR abdomen 2V , 2 VIEWS DATE OF EXAM ORDERED: 05/06/2019 HISTORY: Rule out obstruction. COMPARISON: Previous study dated 05/03/2019. FINDINGS: The lung bases are clear. There is barium within the colon from a previous barium swallow. There is no evidence of obstruction or free air. No unusual calcifications are seen. IMPRESSION: NO EVIDENCE OF OBSTRUCTION AT THIS TIME.
[2019-05-06 06:06] LABS: African American GFR (CKD) >90 (>60 ml/min/1.73 sqM); Anion Gap 9 mmol/L; Blood Urea Nitrogen 37 mg/dL (9-20); Calcium 9.4 mg/dL (8.4-10.2); Carbon Dioxide 20 mmol/L (22-30); Chloride 113 mmol/L (98-107); Glucose 384 mg/dL (74-99); Phosphorus 2.8 mg/dL (2.5-4.5); Sodium 142 mmol/L (137-145)
[2019-05-06 06:08] LABS: Glucose,Whole Blood 340 mg/dL (75-99)
[2019-05-06 06:08] LABS: Magnesium 2.7 mg/dL (1.6-2.3); Potassium 4.7 mmol/L (3.5-5.1)
[2019-05-06 07:01] LABS: Glucose,Whole Blood 348 mg/dL (75-99)
[2019-05-06] MEDS: IPRATROPIUM-ALBUTEROL 3 ML NEB INHALATION SCH ×5 (07:17→23:14)
[2019-05-06 07:55] LABS: Glucose,Whole Blood 296 mg/dL (75-99)
--- NOTE | 2019-05-06 08:22 | P.PN ---
Subjective Progress Note Date: 05/06/19 CHIEF COMPLAINT: Acute respiratory distress and Pyrexia HISTORY OF PRESENT ILLNESS: The patient is a 69-year-old male with hospitalization over 2 weeks. During this hospitalization had trach placed for severe pneumonia. Yesterday he was very agitated and had temperatures over 102.0 degrees Fahrenheit. Today fevers are improved. WBC now elevated after 2 days. He is on full ventilatory supper. ROS: Protein malnutrition on TPN. History of questionable malignancy gastrointestinal system. No evidence of recent [place]. PHYSICAL EXAM: VITAL SIGNS: Reviewed CONSTITUTIONAL: Well developed and in no acute distress. EYES: Conjuctivae without sclera icterus. Extraocular movements grossly intact. HEAD, EARS, NOSE, THROAT: Moist buccal mucosa. Head is atraumatic, normocephalic. Hears conversational speech. No nasal drainage. NECK: Supple. Tracheostomy intact. RESPIRATORY: Non-labored respirations and equal bilateral excursions. CARDIOVASCULAR: Palpable 2+ radial pulses. Regular rate. ABDOMEN: Well-healed midline incision. Soft. MUSCULOSKELETAL: No gross deformity of the lower extremities noted. No clubbing. No cyanosis. SKIN: Good skin turgor. Well perfused. NEUROLOGIC: No focal or lateralizing signs. Moves all extremities. In restraints. PSYCH: Agitated. Alert to person. RADIOLOGY REPORTS: Reviewed chest plain film without new pneumonia. Abdominal plain film report without obstruction. STUDIES: Abdominal Xray independently reviewed without free air. Residual contrast from barium enema seen. Chest: Xray personally reviewed without free air. CLINCAL LABS: White blood cell count up to over 14,000 ASSESSMENT: 1. Acute respiratory distress 2. Status post tracheostomy 3. History of pneumonia. 4. Protein malnutrition PLAN: 1. Blood cultures for history of fevers 2. Broad spectrum antibiotics. 3. Continue TPN Objective - Vital Signs Vital signs: Vital Signs Temp 97.9 F 05/06/19 08:00 Pulse 101 H 05/06/19 08:00 Resp 26 H 05/06/19 08:00 BP 119/80 05/06/19 08:00 Pulse Ox 95 05/06/19 08:00 Intake & Output 05/05/19 05/06/19 05/06/19 18:59 06:59 18:59 Intake Total 2662.4 3470.509 251.081 Output Total 1525 3215 200 Balance 1137.4 255.509 51.081 Weight 96.9 kg Intake: IV 1460 1540 120 Mvi, Adult No.4 with Vit 1200 1200 100 K 10 ml Trace (Conc-1Ml/ Dose) 1 ml Sodium Acetate 20 meq Potassium Chloride 20 meq Magnesium Sulfate gm 1 gm Potassium Phosphate 9 mmol In Amino Acid 5%- D15w 1,000 ml @ 100 mls/ hr IV .BY DURATION [facility] Rx #:[id number] Piperacillin-Tazobactam 3 100 .375 gm In Sodium Chloride 0.9% 100 ml @ 25 mls/hr IVPB Q8H [facility] Rx#: [id number] Sodium Chloride 0.9% 1, 260 240 20 000 ml @ 20 mls/hr IV . Q24H [facility] Rx#:[id number] Intake, IV Titration 1202.4 1930.509 131.081 Amount Anidulafungin 100 mg In 100 Sodium Chloride 0.9% 100 ml @ 84 mls/hr IVPB DAILY [facility] Rx#:[id number] Cisatracurium 200 mg In 2.4 107.088 Sodium Chloride 0.9% 180 ml @ 1 MCG/KG/MIN 5.76 mls/hr IV .Q24H [facility] Rx#: [id number] Fat Emulsion 20% 250 ml 250 In Empty Bag 1 bag @ 21 mls/hr IV DAILY@1800 [facility] Rx#:[id number] Insulin Regular 100 unit 101.000 41.545 In Sodium Chloride 0.9% 100 ml @ Per Protocol IV .Q0M [facility] Rx#:[id number] Mvi, Adult No.4 with Vit 1034 K 10 ml Trace (Conc-1Ml/ Dose) 1 ml Sodium Acetate 20 meq Potassium Chloride 14 meq Magnesium Sulfate gm 1 gm Potassium Phosphate 12 mmol In Amino Acid 5%- D15w 1,000 ml @ 100 mls/ hr IV .BY DURATION [facility] Rx #:[id number] Piperacillin-Tazobactam 3 100 .375 gm In Sodium Chloride 0.9% 100 ml @ 25 mls/hr IVPB Q8H [facility] Rx#: [id number] Propofol 1,000 mg In 100 338.421 89.536 Empty Bag 1 bag @ Titrate IV .Q0M [facility] Rx#: [id number] Sodium Chloride 0.9% 500 500 ml 500 ml @ 999 mls/hr IV .Q31M [facility] Rx#:[id number] Vancomycin 1,750 mg In 500 Sodium Chloride 0.9% 500 ml 500 ml @ 167 mls/hr IVPB Q12H [facility] Rx#: [id number] Output: Urine 1525 3215 200 Other: Voiding Method Indwelling Catheter Indwelling Catheter ABP, PAP, CO, CI - Last Documented Arterial Blood Pressure 102/102 - Labs CBC & Chem 7: 05/06/19 05:47 05/06/19 05:47 Labs: Abnormal Lab Results - Last 24 Hours (Table) 05/05/19 05/05/19 05/05/19 Range/Units 11:50 14:14 16:06 WBC (3.8-10.6) k/uL Neutrophils # (1.3-7.7) k/uL Lymphocytes # (1.0-4.8) k/uL ABG pH 7.31 L (7.35-7.45) ABG pCO2 (35-45) mmHg Chloride (98-107) mmol/L Carbon Dioxide (22-30) mmol/L BUN (9-20) mg/dL Creatinine (0.66-1.25) mg/dL Glucose (74-99) mg/dL POC Glucose (mg/dL) 182 H (75-99) mg/dL Magnesium (1.6-2.3) mg/dL Troponin I 0.158 H* (0.000-0.034) ng/mL 05/05/19 05/05/19 05/05/19 Range/Units 17:54 20:15 23:59 WBC (3.8-10.6) k/uL Neutrophils # (1.3-7.7) k/uL Lymphocytes # (1.0-4.8) k/uL ABG pH (7.35-7.45) ABG pCO2 (35-45) mmHg Chloride (98-107) mmol/L Carbon Dioxide (22-30) mmol/L BUN (9-20) mg/dL Creatinine (0.66-1.25) mg/dL Glucose (74-99) mg/dL POC Glucose (mg/dL) 227 H 369 H (75-99) mg/dL Magnesium (1.6-2.3) mg/dL Troponin I 0.078 H* (0.000-0.034) ng/mL 05/06/19 05/06/19 05/06/19 Range/Units 00:01 01:05 02:02 WBC (3.8-10.6) k/uL Neutrophils # (1.3-7.7) k/uL Lymphocytes # (1.0-4.8) k/uL ABG pH (7.35-7.45) ABG pCO2 (35-45) mmHg Chloride (98-107) mmol/L Carbon Dioxide (22-30) mmol/L BUN (9-20) mg/dL Creatinine (0.66-1.25) mg/dL Glucose (74-99) mg/dL POC Glucose (mg/dL) 378 H 404 H 402 H (75-99) mg/dL Magnesium (1.6-2.3) mg/dL Troponin I (0.000-0.034) ng/mL 05/06/19 05/06/19 05/06/19 Range/Units 03:04 04:00 04:40 WBC (3.8-10.6) k/uL Neutrophils # (1.3-7.7) k/uL Lymphocytes # (1.0-4.8) k/uL ABG pH 7.17 L* (7.35-7.45) ABG pCO2 60 H (35-45) mmHg Chloride (98-107) mmol/L Carbon Dioxide (22-30) mmol/L BUN (9-20) mg/dL Creatinine (0.66-1.25) mg/dL Glucose (74-99) mg/dL POC Glucose (mg/dL) 422 H 378 H (75-99) mg/dL Magnesium (1.6-2.3) mg/dL Troponin I (0.000-0.034) ng/mL 05/06/19 05/06/19 05/06/19 Range/Units 05:00 05:47 05:47 WBC 14.8 H (3.8-10.6) k/uL Neutrophils # 14.0 H (1.3-7.7) k/uL Lymphocytes # 0.5 L (1.0-4.8) k/uL ABG pH (7.35-7.45) ABG pCO2 (35-45) mmHg Chloride 113 H (98-107) mmol/L Carbon Dioxide 20 L (22-30) mmol/L BUN 37 H (9-20) mg/dL Creatinine 0.56 L (0.66-1.25) mg/dL Glucose 384 H (74-99) mg/dL POC Glucose (mg/dL) 350 H (75-99) mg/dL Magnesium 2.7 H (1.6-2.3) mg/dL Troponin I (0.000-0.034) ng/mL 05/06/19 05/06/19 05/06/19 Range/Units 06:05 06:59 07:52 WBC (3.8-10.6) k/uL Neutrophils # (1.3-7.7) k/uL Lymphocytes # (1.0-4.8) k/uL ABG pH (7.35-7.45) ABG pCO2 (35-45) mmHg Chloride (98-107) mmol/L Carbon Dioxide (22-30) mmol/L BUN (9-20) mg/dL Creatinine (0.66-1.25) mg/dL Glucose (74-99) mg/dL POC Glucose (mg/dL) 340 H 348 H 296 H (75-99) mg/dL Magnesium (1.6-2.3) mg/dL Troponin I (0.000-0.034) ng/mL Microbiology - Last 24 Hours (Table) 05/04/19 16:30 Catheter Tip Culture - Final Catheter Tip Pooja albicans 05/04/19 22:35 Blood Culture - Preliminary Blood No Growth after 24 hours 05/05/19 00:50 Gram Stain - Preliminary Sputum Sputum Culture - Preliminary 05/04/19 23:10 Urine Culture - Preliminary Urine,Catheterized Assessment and Plan (1) Respiratory failure Current Visit: Yes Status: Acute Code(s): J96.90 - RESPIRATORY FAILURE, UNSP, UNSP W HYPOXIA OR HYPERCAPNIA SNOMED Code(s): 024326947 (2) Pyrexia Current Visit: Yes Status: Acute Code(s): R50.9 - FEVER, UNSPECIFIED SNOMED Code(s): 981922973 (3) Status post tracheostomy Current Visit: Yes Status: Acute Code(s): Z93.0 - TRACHEOSTOMY STATUS SNOMED Code(s): 254356492 (4) Leukocytosis Current Visit: Yes Status: Acute Code(s): D72.829 - ELEVATED WHITE BLOOD CELL COUNT, UNSPECIFIED SNOMED Code(s): 216128377
[2019-05-06] MEDS: ANIDULAFUNGIN 100 MG in SODIUM CHLORIDE 0.9% 100 ML IVPB SCH (08:47)
[2019-05-06] MEDS: HEPARIN SODIUM,PORCINE 5,000 UNIT/ML 1 ML VIAL SQ SCH ×2 (08:52→20:11)
[2019-05-06] MEDS: PANTOPRAZOLE 40 MG/10 ML VIAL IV SCH (08:56)
[2019-05-06] MEDS ORDERED: ESMOLOL IN SODIUM CHLORIDE PMX 2.5 GM in SALINE 1 250ML.BAG IV SCH (09:00)
[2019-05-06 09:16] LABS: Glucose,Whole Blood 248 mg/dL (75-99)
[2019-05-06] MEDS: HYDROmorphone 0.5 MG/0.5 ML SYRINGE IVP PRN ×4 (09:18→15:40)
--- NOTE | 2019-05-06 09:24 | CONS ---
CONSULTATION Mr. Garcia is a 69-year-old gentleman who has been admitted to the hospital and in the ICU actually from April 17. Yesterday apparently he had an episode when he was febrile, diaphoretic, and I was asked to see him because the troponins have shown mild elevation. It is in this setting that a Cardiology consult was requested. Prior to that, this gentleman had an echocardiogram on the of this month, which revealed normal systolic function. Apparently this is a patient of Dr. Gallardo with a known history of hypertension, hyperlipidemia, COPD, gastroesophageal reflux disease. He also has obstructive sleep apnea but does not use CPAP. He came with abdominal pain and bloating for a couple of months. Apparently, he had some workup for his abdominal pain performed and nonspecific colitis was considered and then patient had acute respiratory failure on the and was transferred to intensive care unit. The exact circumstances are somewhat elusive. Apparently, he was in the emergency room and there were no acute findings. Subsequently he was having GoLYTELY in preparation apparently for a colonoscopy and then ended up with some aspiration and then moved to the intensive care unit. He has been in the unit for quite some time. He has a tracheostomy but no PEG tube since he had a swallow eval that seem to be doing well. I was asked to see him because of an episode of diaphoresis and elevated troponin. His troponin went up from an initial level of 0.078-0.158 yesterday afternoon. The patient is unable to communicate and therefore no history can be available. However, he does not appear to be in any distress at this time. Yesterday, his BNP was normal. He was acidotic with a pH of about 7.31. The last echo from April 16 revealed preserved systolic function. He is resting comfortably at the time of my evaluation. PAST MEDICAL HISTORY: Remarkable for hypertension, hyperlipidemia, and also history of being worked up for abdominal pain and his hospitalization was actually from on April 16. He has apparently a history of gastroesophageal reflux disease, COPD, hypertension, hyperlipidemia. He also has obstructive sleep apnea syndrome. Please refer to the detailed notes by Dr. Arndt. EKG revealed a sinus rhythm/sinus tachycardia with what seemed to be a right bundle branch block type pattern without any acute changes. The EKG on arrival to the hospital also revealed sinus mechanism, right bundle with left anterior fascicular block. PHYSICAL EXAMINATION: Blood pressure is 140/70, pulse rate is about 108 per minute, regular sinus. HEENT unremarkable. Fundus was not examined. Neck is supple. There is no JVD. Heart exam reveals S1, S2 heard normally. There is a short systolic murmur. Lungs reveal diminished air entry. ABDOMEN: Soft. The rest of physical examination was not performed in detail. Laboratory data has been reviewed. IMPRESSION: 1. Troponin elevation. This is a non myocardial injury related troponin elevation. Patient was acidotic yesterday, had leukocytosis and also there was a question of hypoxia. With all these elements, troponin can certainly go up specifically in the setting of acidosis. 2. History of probable aspiration pneumonia on a ventilator through tracheostomy. 3. Hypertension. 4. Hyperlipidemia. 5. History of sleep apnea syndrome. RECOMMENDATIONS: The patient is slightly tachycardic. I am recommending an esmolol drip to keep the heart rate under 100 if possible. I will also obtain a limited echocardiogram to re- evaluate LV function, which was normal on the 10th. We will continue subcu heparin. No aggressive cardiac intervention at this time. Prognosis remains guarded. MMODL / IJN: [id number] /
--- NOTE | 2019-05-06 09:53 | PN ---
PROGRESS NOTE DATE OF SERVICE: May 06, 2019. This is a 69-year-old male who was admitted back on April 15 with an episode of colitis and abdominal pain. He had aspiration on April 17 and for that reason developed hypoxemic respiratory failure which required intubation and mechanical ventilation. More recently, he was doing better and he was eventually weaned to trach collar. He did require tracheostomy 10 days after intubation on April 27. Yesterday, he developed some respiratory difficulty. He was quite tachypneic. He had a change in his mental status. He also became very hyperthermic with temperature 105. The patient was re- cultured. Zosyn was added back. Tylenol was used for cooling as well as a cooling blanket. Unfortunately, the patient continued to worsen and despite our best efforts initially on the pressor support and CPAP, we had to place him back on the mechanical ventilator. In fact, he was so dyssynchronous with the ventilator, we actually had to sedate him heavily and the eventually paralyze him. Currently, he is on the volume assist-control mode rate of 26, tidal volume 450, FiO2 50%, PEEP of 5. Arterial blood gases show pO2 of 97, pCO2 of 60, pH is 7.17. Those gases were done on actually a rate of 20, and the rate was increased to 26. A repeat gas has not yet been done. In addition, he is on insulin 22 units an hour, TPN at 100 mL an hour. Diprivan at 70 mcg/kg per per minute and Nimbex at 2 mcg/kg per per minute with TOF for monitoring. The patient is also getting saline at 20 mL an hour. The patient is a DNR. He has been here in the hospital for 20 days. His catheter tip did grow Pooja. Dr. Kennedy was consulted. He is currently on vancomycin and Zosyn. Also, the antifungal Eraxis was added. I did talk to the . She did make him a NO CODE. I thought this was appropriate. I did tell her we would continue to support him fully to see if we can get him through this setback. He did have a PICC line placed by Dr. Mello. PHYSICAL EXAMINATION: VITAL SIGNS: Current vital signs are reviewed. They include temperature now which is only 97.9, heart rate was about 100, respiratory rate 26, blood pressure 131/80, mean 97, saturation 95%. Appears in no acute distress. HEENT examination is grossly unremarkable. Mucous membranes are moist. NECK: Supple. Full range of motion. No adenopathy. No neck vein distention. There is a midline tracheostomy. He is connected to the ventilator. CARDIOVASCULAR examination reveals regular rhythm and rate. He is tachycardic. Heart rate about 100. S1, S2 normal. No murmur noted. Heart sounds are distant. LUNGS: Coarse rhonchi. Breath sounds are diminished. No crackles or wheezes. ABDOMEN: Soft. Bowel sounds are noted. EXTREMITIES are intact. Mild edema. SKIN without rash. NEUROLOGIC examination is difficult to assess obviously because he is sedated and paralyzed. Currently, he is on insulin at 22 units an hour, TPN at 100 mL an hour, Diprivan at 70 mcg/kg per per minute and Nimbex at 2 mcg/kg per per minute. He is on saline at 20 mL an hour. I did ask the nurse to turn off the Nimbex to see if we could manage him just with propofol and Dilaudid p.r.n. Again, he is now a DNR. Culture data is otherwise negative save for the catheter tip showing Pooja and a previous blood culture on April 17 showing evidence of coag-negative staph. Medications are reviewed. Everything seems to be appropriate including the vancomycin, Zosyn and Eraxis. ASSESSMENT: 1. Acute hypoxemic and hypercapnic respiratory failure secondary to bilateral aspiration pneumonia as well as acute respiratory distress syndrome. Both of these situations had significantly improved until more recently. 2. Status post tracheostomy on April 27, secondary to failure to wean. 3. Mechanical ventilation, beginning on April 17 for acute respiratory failure and aspiration pneumonia. 4. Acute colitis with possible cecal mass and abdominal distention, improved. 5. Evidence of colitis and diverticular disease on barium enema. 6. Failed swallow evaluation. 7. Benign essential hypertension. 8. History of alcohol abuse. 9. Sleep apnea syndrome. 10.Abdominal pain, improved. 11.History of gastroesophageal reflux disease. 12.Type 2 diabetes mellitus. PLAN: Yesterday, he took a turn for the worse. As I mentioned earlier, he developed hyperthermia, tachycardia, hypertension, and mental status changes. He was placed back on the mechanical ventilator, sedated heavily and paralyzed. Today, we are going to stop paralytic. I did talk to his . She did make him a DNR. I told her we will continue to work really hard to see if we could not get him turned around. He remains on an insulin drip, TPN, Diprivan and Nimbex. Recent catheter tip did grow out Pooja. He is on vancomycin and Zosyn and Eraxis. His vent settings are appropriate. His elevated CO2 and low pH was dealt with early this morning by increasing his sedimentation rate from 20-26. Additional recommendations and suggestions forthcoming. Prognosis is guarded. Critical care time 34 minutes. MMODL / IJN: [id number] / MTDD
[2019-05-06 10:24] LABS: Glucose,Whole Blood 257 mg/dL (75-99)
[2019-05-06 11:15] LABS: Glucose,Whole Blood 277 mg/dL (75-99)
[2019-05-06 11:55] LABS: Glucose,Whole Blood 281 mg/dL (75-99)
[2019-05-06 13:31] LABS: Glucose,Whole Blood 284 mg/dL (75-99)
[2019-05-06] MEDS: SODIUM CHLORIDE 0.9% 1,000 ML IV SCH (14:49)
[2019-05-06 14:55] LABS: Glucose,Whole Blood 292 mg/dL (75-99)
[2019-05-06] MEDS ORDERED: METOPROLOL TARTRATE 5 MG/5 ML VIAL IVP PRN (14:55)
[2019-05-06] MEDS ORDERED: INSULIN DETEMIR (LEVEMIR) 100 UNIT/ML SYR SQ ONE (15:00)
[2019-05-06] MEDS: CISATRACURIUM 200 MG in SODIUM CHLORIDE 0.9% 180 ML IV SCH (15:13)
[2019-05-06] MEDS: VANCOMYCIN 2,000 MG in SODIUM CHLORIDE 0.9% 500 ML 500 ML IVPB SCH (15:24)
[2019-05-06 16:20] LABS: Glucose,Whole Blood 220 mg/dL (75-99)
--- NOTE | 2019-05-06 16:43 | P.PN ---
Subjective Progress Note Date: 05/06/19 This is a 69-year-old male patient of Dr. Gallardo with past medical history of hypertension, hyperlipidemia, COPD, gastroesophageal reflux disease, remote history of tobacco use, obstructive sleep apnea not using CPAP. Patient complains of sudden onset of abdominal pain starting on Tuesday. He also complains of bloating in the abdomen for the past couple months as well as weight loss of 5-10 pounds over the past 3 months. He complains of decreased appetite. He states he has had occasional burgundy stools. He denies any black stools, no diarrhea, no vomiting. He denies any urinary symptoms. Patient states he had his last colonoscopy in 2013 which was normal. Patient presents to [facility] emergency center for evaluation. Abdominal x-ray shows no acute findings. CAT scan of the abdomen and pelvis showed marked thickening of the cecum concerning for malignancy. A nonspecific colitis is not excluded but felt to be less likely. Thickening in the gastric rugae which may be secondary to under distention versus a nonspecific gastritis. EKG is a sinus tachycardia with right bundle branch block, left AFB. WBC 16.7, hemoglobin 14.7, creatinine 0.74. Troponin negative. Amylase and lipase, liver function tests all normal. Urinalysis was clear with 1+ protein. Patient was admitted to the [facility] floor, consult with Dr. Givens, IV fluids, pain medications and Zofran. Plan is for colonoscopy tomorrow. 04/17: Overnight, patient developed acute respiratory failure and was transferred to the intensive care unit and patient placed on BiPAP, currently under care of Dr. Caballero. Patient subsequently intubated and placed on mechanical ventilation. Echocardiogram from yesterday reveals EF 55-60% with moderate concentric left ventricle hypertrophy, trace mitral regurgitation, trace tricuspid regurgitation, no pulmonary hypertension. No pericardial effusion. Chest x-ray shows new right basilar and pneumonic consolidation with diminished inspiration background right hilar and left basilar more patchy edema and or infiltrate felt present. Repeat chest x-ray shows new endotracheal tube with placement described with recommendations to pullback. Mild cardiomegaly and low lung volumes with bilateral hilar edema and/or infiltrate and right basilar consolidation all redemonstrated increasing left basilar infiltrate felt present. Abdomen was more distended and NG tube was placed. Immediate surgical consultation was requested by Dr. Caballero. Dr. Givens attempted bedside colonoscopy but patient was not properly prepped. He is scheduled for CAT scan of the abdomen and pelvis this afternoon at 2:30. NG tube is in place with bile color returned. Family members are in the waiting room and have been updated. 04/18: The patient remains in intensive care unit intubated and on mechanical ventilation. Vent settings have been decreased and no plan for sedation holiday today. He was weaned off norepinephrine this morning. Urine output has been 50-75 mL per hour. Noted that the Weston tube is pink but urine is alesia most likely a drug reaction. Patient has had several bowel movements this morning. Antibiotics have been switched to Zosyn and vancomycin. TSH 0.224 with normal free T4 at 1.24. Surgical consultation has been changed to Dr. Aranda per family wishes. 04/19: Patient remains in intensive care unit intubated and on mechanical ventilation. Patient has had increased purulent secretions and underwent reintubation by Dr. Caballero. He also perform bronchoscopy at the bedside and suction 20 ML's purulent material specimen was sent to the lab for cytology and culture. He is concern for ARDS. Patient is continued on Zosyn and vancomycin. He has been off vasopressors since yesterday morning. Patient has had a small amount of liquid stool today much decreased from yesterday. Dr. Aranda is on for surgery at this point. Patient is having minimal output from NG tube. Bowel sounds remain hypoactive. Consult has been added for GI regarding concern for ischemic colitis. 04/20: Patient remains intubated and on mechanical ventilation. Repeat chest x- ray shows continued mild to moderate heart failure. Small to moderate effusions with prominent bibasilar atelectasis and/or consolidation persists. Dr. Aranda is planning for bedside colonoscopy today. Patient was ordered for soapsuds enema last night and this morning. Tube feedings on hold. He has been afebrile, heart rate in the 50s and 60s, blood pressure 141/66. Pulse ox 99%. WBC 8.1, hemoglobin 11.2. Creatinine 0.65. Bronchial washing cytology is pending. Bronchial cultures in progress. Patient will need to start tube feedings or TPN depending on results of colonoscopy scheduled for this afternoon. Patient was given 1 dose of IV Lasix this morning and is diuresing well. Family in the waiting room have been updated. 04/21: Patient remains in the bed, FiO2 40%, PEEP of 6, NG tube has been placed and had taken out the OG tube, fecaloid billous contents are observed in the NG tube, bowel sounds are very diminished today, no bowel movements over the past 24 hours, x-rays of the abdomen will be done to evaluate for progressive bowel obstruction, patient remains to be afebrile, no leukocytosis bronchial washing cultures shows no normal zander vital signs are stable no hypotensive events, patient is slightly hypotensive on IV Solu-Medrol 40 every 8 04/23: Patient remains intubated and on mechanical ventilation. Dr. Dunham does not plan for attempt at weaning today. He is started him on hydralazine for blood pressure control. Patient has been started on TPN. On Tuesday, patient underwent colonoscopy with Dr. Aranda that revealed reticulosis, tortuous colon and recommends once patient is off ventilation to have barium enema to evaluate the ileocecal valve. Keep NG tube post extubation and hold tube feedings for now. No bowel movement today. 04/24: Patient had a rough night became significantly hypertensive, tachypneic and tachycardic. Patient was started on labetalol drip once other options were attempted without success and this was weaned off this morning. Patient also was placed on Nimbex and fentanyl drip which are to be weaned off today. Chest x-ray shows worsening interstitial infiltrates bilaterally and possible interstitial edema. Dr. Dunham increase Lasix to 40 mg IV push every 12 hours. Patient has not had a bowel movement. He remains on TPN and NG tube to suction. Urine output is adequate, tea-colored. Discussed yesterday the possibility of needing a trach and PEG with family members. At this time, Dr. Dunham would like to hold off. 04/25: Patient is still sedated on mechanical ventilation he had failed his weaning parameter today I want to see him when the and the son were in the room door tachycardia with Dr. dao about further plan. Pulmonary and from medicine standpoint patient most likely will need to go to trach no PEG tube can be done for now expected the plan probably for Tuesday and from thereon if more stable can go for his barium enema to come with final diagnosis of the tumor or the finding in the cecum and the large intestine and from thereon further management can be planned. Patient still on multiple drips for pain management let pressure TPN and DT. 04/26: A Chin still on mechanical ventilation, sedated, he is slightly bit awaking when backing off on sedation is still very agitated between having quite bed elevated blood pressure and pulse rate did not succeed on weaning parameter and most likely he will need tracheostomy by tomorrow. PEG tube is negative be possible at this point because of the possibility of mass in the cecum with obstruction cankerous problem if he is more stable can go for barium enema and then PEG tube if there is no cecal mass likely his CEA came back negative. 04/27 patient examined bedside currently intubated D 10. Patient came in with abdominal pain, nausea, vomiting followed by a respiratory failure the next day leading to intubation. Patient is found to be agitated him on ventilator. Currently requiring 75 mics of propofol. On vital evaluation patient had a heart rate of 77 respiratory rate 26 blood pressure 159/62 on clear with pain drip abdominal x-ray this morning shows nonspecific bowel pattern with the bilateral pleural effusion chest x-ray suggestive of pulmonary edema versus consolidation. Patient is currently on Lasix 40 mg IV twice a day and making good urine output 75 mL per hour. Blood cultures so far negative. Bronchoscopy results are negative so far. Plan for tracheostomy placement today. PEG tube is on hold until further information about the cecal mass/colitis. 04/28: Examined at bedside currently on CPAP. Patient was on a sedation holiday for approximately 1 hour sedation has been increased due to fatigue and agitation. Vital signs have been stable blood pressure 151/60 pulse ox a 97% on CPAP pulse rate 98. Patient was able to follow commands however weak. Patient was able to nod head and answer actions appropriately. Family at the bedside discussing plan of care. Continue nutritional support with TPN. 04/29: Patient examined bedside currently on CPAP tolerating. Patient is more alert today compared to yesterday. Patient is able to follow commands movements are weak and nods head appropriately to questions. Patient is on propofol at 10 at this time. She was on a sedation holiday however heart rate and blood pressure increase. Urinary output approximately 60-70 ML's per hour. Patient has not had a bowel movement continues with NG suction approximately 600-700 ML's output in 24 hours. 04/30: Patient is sitting up in bed does appear in less distress today he continues to have the trach in place we're trying to the patient on the ventilator hopefully he will be on trach collar tomorrow morning, family were at the bedside and updated about his situation he will be weaned off sedation completely liver on today he does not appear to be in acute distress at this time, we will hold off transfer the patient until after he weaned off. 05/01: Patient is sitting up in bed he is more awake and more alert is moving all his extremities currently has a trach collar in place, he continued to follow commands appropriately, his family were at the bedside and updated about his current situation. 05/02: Patient is sitting up in bed he continues to have ended in place, he continues to have the trach collar in place, is moving all his extremities, he is feeling better today he has no abdominal pain, he has not passed any gas and he has not had a bowel movement. 05/03: Patient remains in the intensive care unit. He has undergone barium enema today which revealed limited single contrast barium enema. Limited distention of the left side of the colon. There is proximal to mid sigmoid diverticulosis. There he reaches the cecum and refluxes multiple distal ileal loops. There is subtle contour irregularity of the cecum and mucosal lesion or colitis here is difficult to exclude. No frankly constricting lesion is seen. Repeat chest x- ray reveals correlate for congestive heart failure, pneumonia not excluded. Patient has been continued on TPN. Patient has a trach collar place at 28%. He has been hemodynamically stable. Not requiring vasopressors. Temperature max 100.0. White count is 12.7, potassium 3.4, creatinine 0.61. Blood sugars running between 155 and 181. 05/04: Patient remains in intensive care unit. Patient pulled his NG tube out yesterday and Dr Aranda to reevaluate as he did fail swallow evaluation. Speech therapy will reevaluate today as well. Patient is scheduled for PICC line placement today for TPN and central line will then be removed. Abdomen is soft. He has had good urine output. His temperature max 101.2 axillary. He is on IV Tylenol. Patient has worked with PT and OT and up to a chair. He is extremely fatigued following this activity. Patient will have an extended recovery phase. Ativan will be changed to only at bedtime if needed and Toradol added for pain versus Dilaudid. 05/05: Patient has worsened overnight, persistent fevers now high temperature of 10-103, patient was given cooling blanket, patient was seen in ICU, pancultures were obtained, patient's diaphoretic, tachypneic, labored breathing, pulmonary has restarted him on vent support through trach collar, significant tachypnea,. I requested infectious disease to see him, Dr. Kennedy, secondary to decompensation new high gradefevers,, troponins were ordered, EKG to be done, Solu-Medrol 3 doses to be given, patient has palate shallow ulcerations doesn't look viral, right decubitus stage II pressure ulcers, no petechiae or other rash noted,patient is on TPN, no bowel movement since admission per nursing staff 05/06, patient's fever has subsided, cultures from sputum shows presumptive staph aureus, usually in Yeast species, catheter tip Pooja albicans, patient is less tachypneic and is much more comfortable not in distress, steroids has been completed 3 doses, and has some hyperglycemia, on insulin drip at 22-25 units an hour, NPH was given early this morning at 3:00 and will be started on Levemir tonight 8 units starting 3 PM daily, patient is receiving 150 g of glucose per day from TPN. Patient currently is on vancomycin and Zosyn and anidulfungin by Dr. Kennedy. Cardiology has seen the patient, rule out [place] with elevated troponin, most likely secondary to severe sepsis Review Of Systems:unable secondary to sedation on vent compared to previous Constitutional: Reports fever, no chills, no night sweats. Reports weakness, fatigue and lethargy. Reports daytime sleepiness. EENT: No headache. No blurred vision or double vision, no loss of vision. No loss of Hearing, no ringing in the ears, no dizziness. No nasal drainage or congestion. No epistaxis. No sore throat. Lungs: Reports shortness of breath, cough, no sputum production. No wheezing. Cardiovascular: No chest pain, no lower extremity edema. No palpitations. No paroxysmal nocturnal dyspnea. No orthopnea. No lightheadedness or dizziness. No syncopal episodes. Abdominal: No abdominal pain. No nausea, vomiting. No diarrhea. No constipation. No bloody or tarry stools.. No loss of appetite. Genitourinary: No dysuria, increased frequency, urgency. No urinary retention- weston in place. Musculoskeletal: No myalgias. Reports muscle weakness, reports gait dysfunction. No back pain. No neck pain. Integumentary: No wounds, no lesions. No rash or pruritus. No unusual bruising. No change in hair or nails. Neurologic: No aphasia. No facial droop. No change in mentation. No head injury. No headache. No paralysis. No paresthesia. Psychiatric: No depression. No anxiety. No mood swings. Endocrine: No abnormal blood sugars. No weight change. No excessive sweating or thirst. No cold intolerance. Objective - Vital Signs Vital signs: Vital Signs Temp 99.3 F 05/06/19 16:00 Pulse 82 05/06/19 16:00 Resp 32 H 05/06/19 16:00 BP 92/62 05/06/19 16:00 Pulse Ox 96 05/06/19 16:00 Intake & Output 05/05/19 05/06/19 05/06/19 18:59 06:59 18:59 Intake Total 2662.4 3470.509 2403.243 Output Total 1525 3215 1050 Balance 1137.4 878.805 6360.243 Weight 96.9 kg 96.9 kg Intake: IV 1460 1540 500 Mvi, Adult No.4 with Vit 1200 1200 300 K 10 ml Trace (Conc-1Ml/ Dose) 1 ml Sodium Acetate 20 meq Potassium Chloride 20 meq Magnesium Sulfate gm 1 gm Potassium Phosphate 9 mmol In Amino Acid 5%- D15w 1,000 ml @ 100 mls/ hr IV .BY DURATION [facility] Rx #:[id number] Piperacillin-Tazobactam 3 100 .375 gm In Sodium Chloride 0.9% 100 ml @ 25 mls/hr IVPB Q8H [facility] Rx#: [id number] Sodium Chloride 0.9% 1, 260 240 200 000 ml @ 20 mls/hr IV . Q24H [facility] Rx#:[id number] Intake, IV Titration 1202.4 5346.961 7871.243 Amount ACETAMINOPHEN IV (For NPO 100 ) 1,000 mg In Empty Bag 1 bag @ 400 mls/hr IVPB Q6HR PRN Rx#:[id number] Anidulafungin 100 mg In 100 100 Sodium Chloride 0.9% 100 ml @ 84 mls/hr IVPB DAILY [facility] Rx#:[id number] Cisatracurium 200 mg In 2.4 107.088 Sodium Chloride 0.9% 180 ml @ 1 MCG/KG/MIN 5.76 mls/hr IV .Q24H [facility] Rx#: [id number] Fat Emulsion 20% 250 ml 250 In Empty Bag 1 bag @ 21 mls/hr IV DAILY@1800 [facility] Rx#:[id number] Insulin Regular 100 unit 101.000 162.543 In Sodium Chloride 0.9% 100 ml @ Per Protocol IV .Q0M [facility] Rx#:[id number] Mvi, Adult No.4 with Vit 1034 K 10 ml Trace (Conc-1Ml/ Dose) 1 ml Sodium Acetate 20 meq Potassium Chloride 14 meq Magnesium Sulfate gm 1 gm Potassium Phosphate 12 mmol In Amino Acid 5%- D15w 1,000 ml @ 100 mls/ hr IV .BY DURATION [facility] Rx #:[id number] Mvi, Adult No.4 with Vit 300 K 10 ml Trace (Conc-1Ml/ Dose) 1 ml Sodium Acetate 20 meq Potassium Chloride 14 meq Potassium Phosphate 12 mmol In Amino Acid 5%-D15w 1,000 ml @ 44 mls/hr IV . [id number] [facility] Rx#:[id number] Piperacillin-Tazobactam 3 100 .375 gm In Sodium Chloride 0.9% 100 ml @ 25 mls/hr IVPB Q8H [facility] Rx#: [id number] Propofol 1,000 mg In 100 338.421 440.700 Empty Bag 1 bag @ Titrate IV .Q0M [facility] Rx#: [id number] Sodium Acetate 20 meq 200 Potassium Chloride 14 meq Magnesium Sulfate gm 1 gm Potassium Phosphate 12 mmol In Amino Acid 5%- D15w 1,000 ml @ 100 mls/ hr IV .BY DURATION [facility] Rx #:[id number] Sodium Acetate 20 meq 100 Potassium Chloride 14 meq Potassium Phosphate 12 mmol In Amino Acid 5%- D15w 1,000 ml @ 100 mls/ hr IV .BY DURATION [facility] Rx #:[id number] Sodium Chloride 0.9% 500 500 ml 500 ml @ 999 mls/hr IV .Q31M [facility] Rx#:[id number] Vancomycin 1,750 mg In 500 Sodium Chloride 0.9% 500 ml 500 ml @ 167 mls/hr IVPB Q12H [facility] Rx#: [id number] Vancomycin 2,000 mg In 500 Sodium Chloride 0.9% 500 ml 500 ml @ 167 mls/hr IVPB Q12H [facility] Rx#: [id number] Output: Urine 1525 3215 1050 Other: Voiding Method Indwelling Catheter Indwelling Catheter Indwelling Catheter ABP, PAP, CO, CI - Last Documented Arterial Blood Pressure 102/102 - Exam sedated on vent, trach collartachypneic and labored breathing - EENT Eyes: Present: anicteric sclerae - Neck Neck: Present: normal ROM - Respiratory Respiratory: bilateral: CTA, diminished, rhonchi, negative: dullness - Cardiovascular Rhythm: regular Heart sounds: normal: S1, S2 - Gastrointestinal General gastrointestinal: Present: decreased bowel sounds, soft - Integumentary Integumentary: Present: decreased turgor, normal - Psychiatric Psychiatric: Present: A&O x's 3 - Labs CBC & Chem 7: 05/06/19 05:47 05/06/19 05:47 Labs: Abnormal Lab Results - Last 24 Hours (Table) 05/05/19 05/05/19 05/05/19 Range/Units 17:54 20:15 23:59 WBC (3.8-10.6) k/uL Neutrophils # (1.3-7.7) k/uL Lymphocytes # (1.0-4.8) k/uL ABG pH (7.35-7.45) ABG pCO2 (35-45) mmHg Chloride (98-107) mmol/L Carbon Dioxide (22-30) mmol/L BUN (9-20) mg/dL Creatinine (0.66-1.25) mg/dL Glucose (74-99) mg/dL POC Glucose (mg/dL) 227 H 369 H (75-99) mg/dL Magnesium (1.6-2.3) mg/dL Troponin I 0.078 H* (0.000-0.034) ng/mL 05/06/19 05/06/19 05/06/19 Range/Units 00:01 01:05 02:02 WBC (3.8-10.6) k/uL Neutrophils # (1.3-7.7) k/uL Lymphocytes # (1.0-4.8) k/uL ABG pH (7.35-7.45) ABG pCO2 (35-45) mmHg Chloride (98-107) mmol/L Carbon Dioxide (22-30) mmol/L BUN (9-20) mg/dL Creatinine (0.66-1.25) mg/dL Glucose (74-99) mg/dL POC Glucose (mg/dL) 378 H 404 H 402 H (75-99) mg/dL Magnesium (1.6-2.3) mg/dL Troponin I (0.000-0.034) ng/mL 05/06/19 05/06/19 05/06/19 Range/Units 03:04 04:00 04:40 WBC (3.8-10.6) k/uL Neutrophils # (1.3-7.7) k/uL Lymphocytes # (1.0-4.8) k/uL ABG pH 7.17 L* (7.35-7.45) ABG pCO2 60 H (35-45) mmHg Chloride (98-107) mmol/L Carbon Dioxide (22-30) mmol/L BUN (9-20) mg/dL Creatinine (0.66-1.25) mg/dL Glucose (74-99) mg/dL POC Glucose (mg/dL) 422 H 378 H (75-99) mg/dL Magnesium (1.6-2.3) mg/dL Troponin I (0.000-0.034) ng/mL 05/06/19 05/06/19 05/06/19 Range/Units 05:00 05:47 05:47 WBC 14.8 H (3.8-10.6) k/uL Neutrophils # 14.0 H (1.3-7.7) k/uL Lymphocytes # 0.5 L (1.0-4.8) k/uL ABG pH (7.35-7.45) ABG pCO2 (35-45) mmHg Chloride 113 H (98-107) mmol/L Carbon Dioxide 20 L (22-30) mmol/L BUN 37 H (9-20) mg/dL Creatinine 0.56 L (0.66-1.25) mg/dL Glucose 384 H (74-99) mg/dL POC Glucose (mg/dL) 350 H (75-99) mg/dL Magnesium 2.7 H (1.6-2.3) mg/dL Troponin I (0.000-0.034) ng/mL 05/06/19 05/06/19 05/06/19 Range/Units 06:05 06:59 07:52 WBC (3.8-10.6) k/uL Neutrophils # (1.3-7.7) k/uL Lymphocytes # (1.0-4.8) k/uL ABG pH (7.35-7.45) ABG pCO2 (35-45) mmHg Chloride (98-107) mmol/L Carbon Dioxide (22-30) mmol/L BUN (9-20) mg/dL Creatinine (0.66-1.25) mg/dL Glucose (74-99) mg/dL POC Glucose (mg/dL) 340 H 348 H 296 H (75-99) mg/dL Magnesium (1.6-2.3) mg/dL Troponin I (0.000-0.034) ng/mL 05/06/19 05/06/19 05/06/19 Range/Units 09:12 10:09 11:02 WBC (3.8-10.6) k/uL Neutrophils # (1.3-7.7) k/uL Lymphocytes # (1.0-4.8) k/uL ABG pH (7.35-7.45) ABG pCO2 (35-45) mmHg Chloride (98-107) mmol/L Carbon Dioxide (22-30) mmol/L BUN (9-20) mg/dL Creatinine (0.66-1.25) mg/dL Glucose (74-99) mg/dL POC Glucose (mg/dL) 248 H 257 H 277 H (75-99) mg/dL Magnesium (1.6-2.3) mg/dL Troponin I (0.000-0.034) ng/mL 05/06/19 05/06/19 05/06/19 Range/Units 11:53 13:05 14:52 WBC (3.8-10.6) k/uL Neutrophils # (1.3-7.7) k/uL Lymphocytes # (1.0-4.8) k/uL ABG pH (7.35-7.45) ABG pCO2 (35-45) mmHg Chloride (98-107) mmol/L Carbon Dioxide (22-30) mmol/L BUN (9-20) mg/dL Creatinine (0.66-1.25) mg/dL Glucose (74-99) mg/dL POC Glucose (mg/dL) 281 H 284 H 292 H (75-99) mg/dL Magnesium (1.6-2.3) mg/dL Troponin I (0.000-0.034) ng/mL 05/06/19 Range/Units 16:06 WBC (3.8-10.6) k/uL Neutrophils # (1.3-7.7) k/uL Lymphocytes # (1.0-4.8) k/uL ABG pH (7.35-7.45) ABG pCO2 (35-45) mmHg Chloride (98-107) mmol/L Carbon Dioxide (22-30) mmol/L BUN (9-20) mg/dL Creatinine (0.66-1.25) mg/dL Glucose (74-99) mg/dL POC Glucose (mg/dL) 220 H (75-99) mg/dL Magnesium (1.6-2.3) mg/dL Troponin I (0.000-0.034) ng/mL Microbiology - Last 24 Hours (Table) 05/04/19 22:35 Blood Culture Gram Stain - Preliminary Blood 05/04/19 23:10 Urine Culture - Preliminary Urine,Catheterized Yeast species 05/05/19 00:50 Gram Stain - Preliminary Sputum Sputum Culture - Preliminary Presumptive Staph aureus 05/04/19 22:35 Blood Culture - Final Blood 05/04/19 16:30 Catheter Tip Culture - Final Catheter Tip Pooja albicans Assessment and Plan Plan: 1. Abdominal pain, possible colitis, possible malignancy of the cecum, neither have been ruled out but CEA is less than 0.5.. Dr. Aranda following general surgery, patient still has no bowel movement since admission. Continue IV fluids, Zosyn was discontinued on April 30. Barium study as above. Toradol added for pain. 2. Acute vent dependent respiratory failure with aspiration pneumonia, vent placement 05/04/2019 second episode 3. Severe sepsis secondary to staph species sputum culture, bacteremia with Pooja albicans, arising from multifocal pneumonia 4 ARDS secondary to multifocal pneumonia, patient's on Zosyn, infectious disease consulted for closer monitoring, sputum cultures has been sent 5. Acute hypoxic and hypercapnic respiratory failure with bilateral pulmonary infiltrates and masslike consolidation in the right lower lobe most likely secondary to massive aspiration pneumonia initial episode, acute respiratory distress syndrome. Patient is status post bronchoscopy. Patient is status post trach. 6 Mild COPD exacerbation. Continue DuoNeb treatments every 4 hours as needed. Patient was given 3 doses of steroids 8 Diabetes mellitus type 2, insulin requiring, uncontrolled with hyperglycemia. Metformin on hold. NovoLog scale before meals and at bedtime. NovoLog scale currently on insulin drip, 05/06/2019, Lantus added at 8 units daily, we would titrate, currently off Solu-Medrol 9 Generalized anxiety disorder. Citalopram 40 mg daily on hold. 10. Abdominal distention secondary to ileus. NG tube was pulled by accident. Consult with Dr. Aranda . 11. Obstructive sleep apnea noncompliant with CPAP. 12. Blood culture with coag-negative staph, contamination. 13. Delirium tremens, resolved. 14. Severe protein calorie malnutrition. Continue TPN. PICC line . Central line to be discontinued. 15. Sepsis, high-grade fevers noted, pending cultures has been obtained sputum urine and catheter tipfrom 05/04/2019. Consult with Dr. Kennedy 16 Hypertension with episode of accelerated hypertension. Continue hydralazine, Vasotec as needed Gastroesophageal reflux disease and GI prophylaxis. Continue Protonix. DVT prophylaxis. Heparin subcu. prognosis guarded, critically ill Discharge plan: To be determined.
[2019-05-06 17:17] LABS: Glucose,Whole Blood 197 mg/dL (75-99)
[2019-05-06 18:04] LABS: Glucose,Whole Blood 156 mg/dL (75-99)
[2019-05-06] MEDS ORDERED: INSULIN REGULAR 100 UNIT in SODIUM CHLORIDE 0.9% 100 ML IV SCH (18:15)
[2019-05-06 18:51] LABS: Glucose,Whole Blood 144 mg/dL (75-99)
[2019-05-06 20:10] LABS: Glucose,Whole Blood 146 mg/dL (75-99)
[2019-05-06 20:59] LABS: Glucose,Whole Blood 139 mg/dL (75-99)
[2019-05-06 22:04] LABS: Glucose,Whole Blood 134 mg/dL (75-99)
[2019-05-06 23:19] LABS: Glucose,Whole Blood 145 mg/dL (75-99)
[2019-05-06 23:19] LABS: Glucose,Whole Blood 156 mg/dL (75-99)
[2019-05-07 00:09] LABS: Glucose,Whole Blood 149 mg/dL (75-99)
[2019-05-07] MEDS: PROPOFOL 1,000 MG in EMPTY BAG 1 BAG IV SCH ×10 (00:35→22:00)
[2019-05-07 01:07] LABS: Glucose,Whole Blood 144 mg/dL (75-99)
[2019-05-07] MEDS ORDERED: MVI, ADULT NO.4 WITH VIT K 10 ML, TRACE (CONC-1ML/DOSE) 1 ML, SODIUM ACETATE 20 MEQ, PO... IV SCH ×6 (02:00)
[2019-05-07 02:05] LABS: Glucose,Whole Blood 171 mg/dL (75-99)
[2019-05-07] MEDS: IPRATROPIUM-ALBUTEROL 3 ML NEB INHALATION SCH ×6 (03:00→23:40)
[2019-05-07 03:14] LABS: Glucose,Whole Blood 146 mg/dL (75-99)
[2019-05-07 04:04] LABS: Glucose,Whole Blood 153 mg/dL (75-99)
[2019-05-07] MEDS: ARTIFICIAL TEARS-HYPROMELLOSE DROPS 15 ML BTL BOTH EYES SCH ×5 (04:20→20:02)
[2019-05-07] MEDS: VANCOMYCIN 2,000 MG in SODIUM CHLORIDE 0.9% 500 ML 500 ML IVPB SCH ×2 (04:21→15:42)
[2019-05-07] MEDS: PIPERACILLIN-TAZOBACTAM 3.375 GM in SODIUM CHLORIDE 0.9% 100 ML IVPB SCH ×3 (04:21→19:57)
[2019-05-07] MEDS: HYDROmorphone 0.5 MG/0.5 ML SYRINGE IVP PRN ×6 (04:32→22:50)
[2019-05-07 05:00] LABS: ABG Base Excess -3.5 mmol/L; ABG HCO3 22 mmol/L (21-25); ABG Oxygen Saturation 98.3 % (94-97); ABG PCO2 39 mmHg (35-45); ABG PH 7.36 (7.35-7.45); ABG PO2 127 mmHg (83-108); ABG TCO2 23 mmol/L (19-24); Allen Test Performed? Yes
[2019-05-07 05:00] LABS: Glucose,Whole Blood 160 mg/dL (75-99)
[2019-05-07 06:15] LABS: Glucose,Whole Blood 160 mg/dL (75-99)
[2019-05-07 06:34] LABS: Basophils % (A) 0 %; Eosinophils # (A) 0.1 k/uL (0-0.7); Eosinophils % (A) 1 %; HCT 38.7 % (39.0-53.0); HGB 12.2 gm/dL (13.0-17.5); Hypochromasia Slight; Lymphocytes % (A) 10 %; MCH 29.9 pg (25.0-35.0); MCHC 31.4 g/dL (31.0-37.0); MCV 95.1 fL (80.0-100.0); Mean Platelet Volume 9.8; Monocytes # (A) 0.6 k/uL (0-1.0); Monocytes % (A) 6 %; Neutrophils # (A) 8.2 k/uL (1.3-7.7); Neutrophils % (A) 82 %; Platelet Count 184 k/uL (150-450); RBC 4.07 m/uL (4.30-5.90); RDW 14.4 % (11.5-15.5)
[2019-05-07 07:01] LABS: Glucose,Whole Blood 155 mg/dL (75-99)
[2019-05-07 07:03] LABS: African American GFR (CKD) >90 (>60 ml/min/1.73 sqM); Anion Gap 8 mmol/L; Blood Urea Nitrogen 42 mg/dL (9-20); Calcium 9.5 mg/dL (8.4-10.2); Carbon Dioxide 21 mmol/L (22-30); Chloride 116 mmol/L (98-107); Glucose 169 mg/dL (74-99); Magnesium 2.4 mg/dL (1.6-2.3); Phosphorus 1.9 mg/dL (2.5-4.5); Potassium 4.7 mmol/L (3.5-5.1); Sodium 145 mmol/L (137-145)
[2019-05-07] MEDS ORDERED: Phosphorus Replacement Protoco 1 EACH MISC MISCELLANE PRN (07:11)
[2019-05-07 08:02] LABS: Glucose,Whole Blood 147 mg/dL (75-99)
[2019-05-07] MEDS: PANTOPRAZOLE 40 MG/10 ML VIAL IV SCH (08:47)
[2019-05-07] MEDS: HEPARIN SODIUM,PORCINE 5,000 UNIT/ML 1 ML VIAL SQ SCH ×2 (08:47→20:02)
[2019-05-07] MEDS: ANIDULAFUNGIN 100 MG in SODIUM CHLORIDE 0.9% 100 ML IVPB SCH (08:47)
[2019-05-07 09:12] LABS: Glucose,Whole Blood 163 mg/dL (75-99)
--- NOTE | 2019-05-07 10:00 | XR ---
EXAMINATION TYPE: XR chest 1V portable DATE OF EXAM: 05/07/2019 COMPARISON: Prior chest x-ray 05/06/2019 HISTORY: Shortness of breath TECHNIQUE: Single frontal view of the chest is obtained. FINDINGS: Patient is rotated. Tracheostomy tube is in place. There are overlying cardiac leads. Ther e is likely a spinal curvature. Right-sided PICC line shows the distal tip over the region of the cav oatrial junction level. No evident pneumothorax or pleural effusion. Interstitium is increased. There are overlying artifacts. IMPRESSION: There may be a component of interstitial edema
[2019-05-07 10:13] LABS: Glucose,Whole Blood 145 mg/dL (75-99)
[2019-05-07] MEDS: SODIUM PHOSPHATE 10 MMOL in SODIUM CHLORIDE 0.9% 250 ML IVPB SCH ×2 (10:24→13:28)
[2019-05-07] MEDS: ACETAMINOPHEN IV (For NPO) 1,000 MG in EMPTY BAG 1 BAG IVPB PRN ×2 (10:30→16:22)
--- NOTE | 2019-05-07 10:42 | PN ---
PROGRESS NOTE Mr. Garcia is in sinus rhythm, heart rate is in the 60s. I had placed him on a small dose of beta nguyen. Initially tried esmolol, but he has settled down nicely. I am waiting for an echo to be performed today. He is in sinus rhythm, hemodynamically stable. He is, however, still on a ventilator. Cardiac-boone, I do not believe we are dealing with any acute myocardial injury. Troponin profile does not suggest any cardiac related issues, probably some hypoxia, febrile status and acidosis may have contributed to it. S1, S2 heard normally. Lungs reveal bilateral ventilator assisted breath sounds. Abdomen and lower extremity exam unchanged. Plan is to continue current medical regimen and check the results of echocardiogram. MMODL / IJN: [id number] /
[2019-05-07 11:02] LABS: Glucose,Whole Blood 157 mg/dL (75-99)
--- NOTE | 2019-05-07 11:23 | P.PN ---
Subjective Progress Note Date: 05/07/19 CHIEF COMPLAINT: Abdominal pain HISTORY OF PRESENT ILLNESS: Patient remains in the ICU. He is on mechanical ventilation. TPN infusing. He continues to have fevers. Urine culture, blood culture, and catheter tip culture positive for Pooja Albicans. Sputum culture positive for MSSA. PHYSICAL EXAM: VITAL SIGNS: Reviewed. Febrile GENERAL: Well-developed sedated on mechanical ventilation. HEENT: Trach site without bleeding or signs of infection. No sclera icterus. Extraocular movements grossly intact. Moist buccal mucosa. Head is atraumatic, normocephalic. Neck supple without lymphadenopathy. CHEST: Non-labored respirations and equal bilateral excursions on mechanical ventilation CARDIOVASCULAR: Regular rate with regular rhythm. Palpable 2+ radial pulses. ABDOMEN: Soft. Nondistended. Positive bowel sounds. MUSCULOSKELETAL: No clubbing or cyanosis. No gross deformity of extremities. NEUROLOGIC: No focal or lateralizing signs. Cranial nerves II through XII grossly intact. PSYCH: Sedated on mechanical ventilation. SKIN: Well perfused. Good skin turgor. ASSESSMENT: 1. Abdominal pain 2. Marked wall thickening of cecum, possible malignancy versus nonspecific colitis PLAN: Trach management per Dr. Caballero Continue TPN Continue antibiotics. Infectious disease following. Nurse practitioner note has been reviewed by physician. Signing provider agrees with the documented findings, assessment, and plan of care. Objective - Vital Signs Vital signs: Vital Signs Temp 100.0 F H 05/07/19 08:30 Pulse 91 05/07/19 11:08 Resp 23 05/07/19 08:30 BP 96/60 05/07/19 08:30 Pulse Ox 100 05/07/19 08:30 Intake & Output 05/06/19 05/07/19 05/07/19 18:59 06:59 18:59 Intake Total 2902.902 2934.843 532.254 Output Total 1247 670 66 Balance 7794.656 7916.843 466.254 Weight 96.9 kg 98 kg 98 kg Intake: IV 560 1984 100 .9 bolus 1000 ACETAMINOPHEN IV (For NPO 100 ) 1,000 mg In Empty Bag 1 bag @ 400 mls/hr IVPB Q6HR PRN Rx#:[id number] Mvi, Adult No.4 with Vit 44 K 10 ml Trace (Conc-1Ml/ Dose) 1 ml In Amino Acid 5%-D15w+Lytes*E* 1,000 ml @ 30 mls/hr IV .Q24H [facility] Rx#:[id number] Mvi, Adult No.4 with Vit 300 K 10 ml Trace (Conc-1Ml/ Dose) 1 ml Sodium Acetate 20 meq Potassium Chloride 20 meq Magnesium Sulfate gm 1 gm Potassium Phosphate 9 mmol In Amino Acid 5%- D15w 1,000 ml @ 100 mls/ hr IV .BY DURATION [facility] Rx #:[id number] Piperacillin-Tazobactam 3 200 .375 gm In Sodium Chloride 0.9% 100 ml @ 25 mls/hr IVPB Q8H [facility] Rx#: [id number] Sodium Chloride 0.9% 1, 260 240 000 ml @ 20 mls/hr IV . Q24H [facility] Rx#:[id number] Vancomycin 2,000 mg In 500 Sodium Chloride 0.9% 500 ml 500 ml @ 167 mls/hr IVPB Q12HR [facility] Rx#: [id number] Intake, IV Titration 2342.902 950.843 432.254 Amount ACETAMINOPHEN IV (For NPO 100 ) 1,000 mg In Empty Bag 1 bag @ 400 mls/hr IVPB Q6HR PRN Rx#:[id number] Anidulafungin 100 mg In 100 84 Sodium Chloride 0.9% 100 ml @ 84 mls/hr IVPB DAILY [facility] Rx#:[id number] Insulin Regular 100 unit 202.202 17.103 1.852 In Sodium Chloride 0.9% 100 ml @ Per Protocol IV .Q0M [facility] Rx#:[id number] Insulin Regular 100 unit 1.465 In Sodium Chloride 0.9% 100 ml @ Per Protocol IV .Q0M [facility] Rx#:[id number] Mvi, Adult No.4 with Vit 132 K 10 ml Trace (Conc-1Ml/ Dose) 1 ml Sodium Acetate 20 meq Potassium Chloride 14 meq Potassium Phosphate 12 mmol In Amino Acid 5%-D15w 1,000 ml @ 100 mls/hr IV .BY DURATION [facility] Rx#: [id number] Mvi, Adult No.4 with Vit 600 367 K 10 ml Trace (Conc-1Ml/ Dose) 1 ml Sodium Acetate 20 meq Potassium Chloride 14 meq Potassium Phosphate 12 mmol In Amino Acid 5%-D15w 1,000 ml @ 44 mls/hr IV . [id number] [facility] Rx#:[id number] Mvi, Adult No.4 with Vit 132 K 10 ml Trace (Conc-1Ml/ Dose) 1 ml Sodium Acetate 20 meq Potassium Phosphate 20 mmol In Amino Acid 5%-D15w 1,000 ml @ 44 mls/hr IV . [id number] [facility] Rx#:[id number] Propofol 1,000 mg In 540.700 434.740 87.937 Empty Bag 1 bag @ Titrate IV .Q0M [facility] Rx#: [id number] Sodium Acetate 20 meq 200 Potassium Chloride 14 meq Magnesium Sulfate gm 1 gm Potassium Phosphate 12 mmol In Amino Acid 5%- D15w 1,000 ml @ 100 mls/ hr IV .BY DURATION [facility] Rx #:[id number] Sodium Acetate 20 meq 100 Potassium Chloride 14 meq Potassium Phosphate 12 mmol In Amino Acid 5%- D15w 1,000 ml @ 100 mls/ hr IV .BY DURATION [facility] Rx #:[id number] Sodium Phosphate 10 mmol 125 In Sodium Chloride 0.9% 250 ml @ 125 mls/hr IVPB Q2H [facility] Rx#:[id number] Vancomycin 2,000 mg In 500 Sodium Chloride 0.9% 500 ml 500 ml @ 167 mls/hr IVPB Q12H [facility] Rx#: [id number] Output: Urine 1247 670 66 Other: Voiding Method Indwelling Catheter Indwelling Catheter Indwelling Catheter ABP, PAP, CO, CI - Last Documented Arterial Blood Pressure 102/102 - Labs CBC & Chem 7: 05/07/19 04:40 05/07/19 04:40 Labs: Abnormal Lab Results - Last 24 Hours (Table) 05/06/19 05/06/19 05/06/19 Range/Units 11:53 13:05 14:52 RBC (4.30-5.90) m/uL Hgb (13.0-17.5) gm/dL Hct (39.0-53.0) % Neutrophils # (1.3-7.7) k/uL ABG pO2 (83-108) mmHg ABG O2 Saturation (94-97) % Chloride (98-107) mmol/L Carbon Dioxide (22-30) mmol/L BUN (9-20) mg/dL Glucose (74-99) mg/dL POC Glucose (mg/dL) 281 H 284 H 292 H (75-99) mg/dL Phosphorus (2.5-4.5) mg/dL Magnesium (1.6-2.3) mg/dL 05/06/19 05/06/19 05/06/19 Range/Units 16:06 16:59 18:01 RBC (4.30-5.90) m/uL Hgb (13.0-17.5) gm/dL Hct (39.0-53.0) % Neutrophils # (1.3-7.7) k/uL ABG pO2 (83-108) mmHg ABG O2 Saturation (94-97) % Chloride (98-107) mmol/L Carbon Dioxide (22-30) mmol/L BUN (9-20) mg/dL Glucose (74-99) mg/dL POC Glucose (mg/dL) 220 H 197 H 156 H (75-99) mg/dL Phosphorus (2.5-4.5) mg/dL Magnesium (1.6-2.3) mg/dL 05/06/19 05/06/19 05/06/19 Range/Units 18:48 20:08 20:56 RBC (4.30-5.90) m/uL Hgb (13.0-17.5) gm/dL Hct (39.0-53.0) % Neutrophils # (1.3-7.7) k/uL ABG pO2 (83-108) mmHg ABG O2 Saturation (94-97) % Chloride (98-107) mmol/L Carbon Dioxide (22-30) mmol/L BUN (9-20) mg/dL Glucose (74-99) mg/dL POC Glucose (mg/dL) 144 H 146 H 139 H (75-99) mg/dL Phosphorus (2.5-4.5) mg/dL Magnesium (1.6-2.3) mg/dL 05/06/19 05/06/19 05/06/19 Range/Units 22:01 23:09 23:17 RBC (4.30-5.90) m/uL Hgb (13.0-17.5) gm/dL Hct (39.0-53.0) % Neutrophils # (1.3-7.7) k/uL ABG pO2 (83-108) mmHg ABG O2 Saturation (94-97) % Chloride (98-107) mmol/L Carbon Dioxide (22-30) mmol/L BUN (9-20) mg/dL Glucose (74-99) mg/dL POC Glucose (mg/dL) 134 H 145 H 156 H (75-99) mg/dL Phosphorus (2.5-4.5) mg/dL Magnesium (1.6-2.3) mg/dL 05/07/19 05/07/19 05/07/19 Range/Units 00:06 01:03 02:01 RBC (4.30-5.90) m/uL Hgb (13.0-17.5) gm/dL Hct (39.0-53.0) % Neutrophils # (1.3-7.7) k/uL ABG pO2 (83-108) mmHg ABG O2 Saturation (94-97) % Chloride (98-107) mmol/L Carbon Dioxide (22-30) mmol/L BUN (9-20) mg/dL Glucose (74-99) mg/dL POC Glucose (mg/dL) 149 H 144 H 171 H (75-99) mg/dL Phosphorus (2.5-4.5) mg/dL Magnesium (1.6-2.3) mg/dL 05/07/19 05/07/19 05/07/19 Range/Units 03:00 04:01 04:40 RBC (4.30-5.90) m/uL Hgb (13.0-17.5) gm/dL Hct (39.0-53.0) % Neutrophils # (1.3-7.7) k/uL ABG pO2 (83-108) mmHg ABG O2 Saturation (94-97) % Chloride 116 H (98-107) mmol/L Carbon Dioxide 21 L (22-30) mmol/L BUN 42 H (9-20) mg/dL Glucose 169 H (74-99) mg/dL POC Glucose (mg/dL) 146 H 153 H (75-99) mg/dL Phosphorus 1.9 L (2.5-4.5) mg/dL Magnesium 2.4 H (1.6-2.3) mg/dL 05/07/19 05/07/19 05/07/19 Range/Units 04:40 04:55 04:58 RBC 4.07 L (4.30-5.90) m/uL Hgb 12.2 L (13.0-17.5) gm/dL Hct 38.7 L (39.0-53.0) % Neutrophils # 8.2 H (1.3-7.7) k/uL ABG pO2 127 H (83-108) mmHg ABG O2 Saturation 98.3 H (94-97) % Chloride (98-107) mmol/L Carbon Dioxide (22-30) mmol/L BUN (9-20) mg/dL Glucose (74-99) mg/dL POC Glucose (mg/dL) 160 H (75-99) mg/dL Phosphorus (2.5-4.5) mg/dL Magnesium (1.6-2.3) mg/dL 05/07/19 05/07/19 05/07/19 Range/Units 06:01 06:58 07:59 RBC (4.30-5.90) m/uL Hgb (13.0-17.5) gm/dL Hct (39.0-53.0) % Neutrophils # (1.3-7.7) k/uL ABG pO2 (83-108) mmHg ABG O2 Saturation (94-97) % Chloride (98-107) mmol/L Carbon Dioxide (22-30) mmol/L BUN (9-20) mg/dL Glucose (74-99) mg/dL POC Glucose (mg/dL) 160 H 155 H 147 H (75-99) mg/dL Phosphorus (2.5-4.5) mg/dL Magnesium (1.6-2.3) mg/dL 05/07/19 05/07/19 05/07/19 Range/Units 08:59 09:58 10:59 RBC (4.30-5.90) m/uL Hgb (13.0-17.5) gm/dL Hct (39.0-53.0) % Neutrophils # (1.3-7.7) k/uL ABG pO2 (83-108) mmHg ABG O2 Saturation (94-97) % Chloride (98-107) mmol/L Carbon Dioxide (22-30) mmol/L BUN (9-20) mg/dL Glucose (74-99) mg/dL POC Glucose (mg/dL) 163 H 145 H 157 H (75-99) mg/dL Phosphorus (2.5-4.5) mg/dL Magnesium (1.6-2.3) mg/dL Microbiology - Last 24 Hours (Table) 05/04/19 23:10 Urine Culture - Final Urine,Catheterized Pooja albicans 05/05/19 00:50 Gram Stain - Final Sputum Sputum Culture - Final Staphylococcus aureus 05/04/19 22:35 Blood Culture Gram Stain - Preliminary Blood Blood Culture - Preliminary Pooja albicans 05/04/19 22:35 Blood Culture - Final Blood Assessment and Plan (1) Abdominal pain Current Visit: Yes Status: Acute Code(s): R10.9 - UNSPECIFIED ABDOMINAL PAIN SNOMED Code(s): 67878704 (2) Leukocytosis Current Visit: Yes Status: Acute Code(s): D72.829 - ELEVATED WHITE BLOOD CELL COUNT, UNSPECIFIED SNOMED Code(s): 639409414 (3) Respiratory failure Current Visit: Yes Status: Acute Code(s): J96.90 - RESPIRATORY FAILURE, UNSP, UNSP W HYPOXIA OR HYPERCAPNIA SNOMED Code(s): 610683874 (4) Status post tracheostomy Current Visit: Yes Status: Acute Code(s): Z93.0 - TRACHEOSTOMY STATUS SNOMED Code(s): 142368769
--- NOTE | 2019-05-07 11:50 | ECHOF ---
Referral Reason:elevated troponin MEASUREMENTS -------- HEIGHT: 180.3 cm WEIGHT: 98.0 kg BP: 106/84 RVIDd: 2.9 cm (< 3.3) IVSd: 1.3 cm (0.6 - 1.1) LVIDd: 4.1 cm (3.9 - 5.3) LVPWd: 1.5 cm (0.6 - 1.1) IVSs: 1.9 cm LVIDs: 1.5 cm LVPWs: 1.4 cm FINDINGS -------- Sinus rhythm. This was a technically difficult study with suboptimal views. Limited Study The left ventricular size is normal. There is mild concentric left ventricular hypertrophy. Overa ll left ventricular systolic function is low-normal with, an EF between 50 - 55 %. [employer] used CONCLUSIONS -------- 1. Sinus rhythm. 2. This was a technically difficult study with suboptimal views. 3. Limited Study 4. The left ventricular size is normal. 5. There is mild concentric left ventricular hypertrophy. 6. Overall left ventricular systolic function is low-normal with, an EF between 50 - 55 %. 7. [employer] used [employer]ICAL BILLING AND CODING INSTRUCTOR: Arlette Rocha [facility]
[2019-05-07 12:00] LABS: Glucose,Whole Blood 141 mg/dL (75-99)
[2019-05-07] MEDS: INSULIN ASPART (NovoLOG) 100 UNIT/ML VIAL SQ SCH ×2 (12:40→18:15)
[2019-05-07] MEDS: CHLORHEXIDINE GLUCONATE 15 ML CUP MUCOUS MEM SCH ×2 (12:40→20:01)
--- NOTE | 2019-05-07 13:00 | P.PN ---
Subjective Progress Note Date: 05/07/19 This is a 69-year-old male patient of Dr. Gallardo with past medical history of hypertension, hyperlipidemia, COPD, gastroesophageal reflux disease, remote history of tobacco use, obstructive sleep apnea not using CPAP. Patient complains of sudden onset of abdominal pain starting on Tuesday. He also complains of bloating in the abdomen for the past couple months as well as weight loss of 5-10 pounds over the past 3 months. He complains of decreased appetite. He states he has had occasional burgundy stools. He denies any black stools, no diarrhea, no vomiting. He denies any urinary symptoms. Patient states he had his last colonoscopy in 2013 which was normal. Patient presents to [facility] emergency center for evaluation. Abdominal x-ray shows no acute findings. CAT scan of the abdomen and pelvis showed marked thickening of the cecum concerning for malignancy. A nonspecific colitis is not excluded but felt to be less likely. Thickening in the gastric rugae which may be secondary to under distention versus a nonspecific gastritis. EKG is a sinus tachycardia with right bundle branch block, left AFB. WBC 16.7, hemoglobin 14.7, creatinine 0.74. Troponin negative. Amylase and lipase, liver function tests all normal. Urinalysis was clear with 1+ protein. Patient was admitted to the [facility] floor, consult with Dr. Givens, IV fluids, pain medications and Zofran. Plan is for colonoscopy tomorrow. 04/17: Overnight, patient developed acute respiratory failure and was transferred to the intensive care unit and patient placed on BiPAP, currently under care of Dr. Caballero. Patient subsequently intubated and placed on mechanical ventilation. Echocardiogram from yesterday reveals EF 55-60% with moderate concentric left ventricle hypertrophy, trace mitral regurgitation, trace tricuspid regurgitation, no pulmonary hypertension. No pericardial effusion. Chest x-ray shows new right basilar and pneumonic consolidation with diminished inspiration background right hilar and left basilar more patchy edema and or infiltrate felt present. Repeat chest x-ray shows new endotracheal tube with placement described with recommendations to pullback. Mild cardiomegaly and low lung volumes with bilateral hilar edema and/or infiltrate and right basilar consolidation all redemonstrated increasing left basilar infiltrate felt present. Abdomen was more distended and NG tube was placed. Immediate surgical consultation was requested by Dr. Caballero. Dr. Givens attempted bedside colonoscopy but patient was not properly prepped. He is scheduled for CAT scan of the abdomen and pelvis this afternoon at 2:30. NG tube is in place with bile color returned. Family members are in the waiting room and have been updated. 04/18: The patient remains in intensive care unit intubated and on mechanical ventilation. Vent settings have been decreased and no plan for sedation holiday today. He was weaned off norepinephrine this morning. Urine output has been 50-75 mL per hour. Noted that the Goldberg tube is pink but urine is alesia most likely a drug reaction. Patient has had several bowel movements this morning. Antibiotics have been switched to Zosyn and vancomycin. TSH 0.224 with normal free T4 at 1.24. Surgical consultation has been changed to Dr. Aranda per family wishes. 04/19: Patient remains in intensive care unit intubated and on mechanical ventilation. Patient has had increased purulent secretions and underwent reintubation by Dr. Caballero. He also perform bronchoscopy at the bedside and suction 20 ML's purulent material specimen was sent to the lab for cytology and culture. He is concern for ARDS. Patient is continued on Zosyn and vancomycin. He has been off vasopressors since yesterday morning. Patient has had a small amount of liquid stool today much decreased from yesterday. Dr. Aranda is on for surgery at this point. Patient is having minimal output from NG tube. Bowel sounds remain hypoactive. Consult has been added for GI regarding concern for ischemic colitis. 04/20: Patient remains intubated and on mechanical ventilation. Repeat chest x- ray shows continued mild to moderate heart failure. Small to moderate effusions with prominent bibasilar atelectasis and/or consolidation persists. Dr. Aranda is planning for bedside colonoscopy today. Patient was ordered for soapsuds enema last night and this morning. Tube feedings on hold. He has been afebrile, heart rate in the 50s and 60s, blood pressure 141/66. Pulse ox 99%. WBC 8.1, hemoglobin 11.2. Creatinine 0.65. Bronchial washing cytology is pending. Bronchial cultures in progress. Patient will need to start tube feedings or TPN depending on results of colonoscopy scheduled for this afternoon. Patient was given 1 dose of IV Lasix this morning and is diuresing well. Family in the waiting room have been updated. 04/21: Patient remains in the bed, FiO2 40%, PEEP of 6, NG tube has been placed and had taken out the OG tube, fecaloid billous contents are observed in the NG tube, bowel sounds are very diminished today, no bowel movements over the past 24 hours, x-rays of the abdomen will be done to evaluate for progressive bowel o bstruction, patient remains to be afebrile, no leukocytosis bronchial washing cultures shows no normal zander vital signs are stable no hypotensive events, patient is slightly hypotensive on IV Solu-Medrol 40 every 8 04/23: Patient remains intubated and on mechanical ventilation. Dr. Dunham does not plan for attempt at weaning today. He is started him on hydralazine for blood pressure control. Patient has been started on TPN. On Tuesday, patient underwent colonoscopy with Dr. Aranda that revealed reticulosis, tortuous colon and recommends once patient is off ventilation to have barium enema to evaluate the ileocecal valve. Keep NG tube post extubation and hold tube feedings for now. No bowel movement today. 04/24: Patient had a rough night became significantly hypertensive, tachypneic a nd tachycardic. Patient was started on labetalol drip once other options were attempted without success and this was weaned off this morning. Patient also was placed on Nimbex and fentanyl drip which are to be weaned off today. Chest x-ray shows worsening interstitial infiltrates bilaterally and possible interstitial edema. Dr. Dunham increase Lasix to 40 mg IV push every 12 hours. Patient has not had a bowel movement. He remains on TPN and NG tube to suction. Urine output is adequate, tea-colored. Discussed yesterday the possibility of needing a trach and PEG with family members. At this time, Dr. Dunham would like to hold off. 04/25: Patient is still sedated on mechanical ventilation he had failed his weaning parameter today I want to see him when the and the son were in the room door tachycardia with Dr. dao about further plan. Pulmonary and from medicine standpoint patient most likely will need to go to trach no PEG tube can be done for now expected the plan probably for Tuesday and from thereon if more stable can go for his barium enema to come with final diagnosis of the tumor or the finding in the cecum and the large intestine and from thereon further management can be planned. Patient still on multiple drips for pain management let pressure TPN and DT. 04/26: A Chin still on mechanical ventilation, sedated, he is slightly bit awaking when backing off on sedation is still very agitated between having quite bed elevated blood pressure and pulse rate did not succeed on weaning parameter and most likely he will need tracheostomy by tomorrow. PEG tube is negative be possible at this point because of the possibility of mass in the cecum with obstruction cankerous problem if he is more stable can go for barium enema and then PEG tube if there is no cecal mass likely his CEA came back negative. 04/27 patient examined bedside currently intubated D 10. Patient came in with abdominal pain, nausea, vomiting followed by a respiratory failure the next day leading to intubation. Patient is found to be agitated him on ventilator. Currently requiring 75 mics of propofol. On vital evaluation patient had a heart rate of 77 respiratory rate 26 blood pressure 159/62 on clear with pain drip abdominal x-ray this morning shows nonspecific bowel pattern with the bilateral pleural effusion chest x-ray suggestive of pulmonary edema versus consolidation. Patient is currently on Lasix 40 mg IV twice a day and making good urine output 75 mL per hour. Blood cultures so far negative. Bronchoscopy results are negative so far. Plan for tracheostomy placement today. PEG tube is on hold until further information about the cecal mass/colitis. 04/28: Examined at bedside currently on CPAP. Patient was on a sedation holiday for approximately 1 hour sedation has been increased due to fatigue and agitation. Vital signs have been stable blood pressure 151/60 pulse ox a 97% on CPAP pulse rate 98. Patient was able to follow commands however weak. Patient was able to nod head and answer actions appropriately. Family at the bedside discussing plan of care. Continue nutritional support with TPN. 04/29: Patient examined bedside currently on CPAP tolerating. Patient is more alert today compared to yesterday. Patient is able to follow commands movements are weak and nods head appropriately to questions. Patient is on propofol at 10 at this time. She was on a sedation holiday however heart rate and blood pressure increase. Urinary output approximately 60-70 ML's per hour. Patient has not had a bowel movement continues with NG suction approximately 600-700 ML's output in 24 hours. 04/30: Patient is sitting up in bed does appear in less distress today he continues to have the trach in place we're trying to the patient on the ventilator hopefully he will be on trach collar tomorrow morning, family were at the bedside and updated about his situation he will be weaned off sedation completely liver on today he does not appear to be in acute distress at this time, we will hold off transfer the patient until after he weaned off. 05/01: Patient is sitting up in bed he is more awake and more alert is moving all his extremities currently has a trach collar in place, he continued to follow commands appropriately, his family were at the bedside and updated about his current situation. 05/02: Patient is sitting up in bed he continues to have ended in place, he continues to have the trach collar in place, is moving all his extremities, he is feeling better today he has no abdominal pain, he has not passed any gas and he has not had a bowel movement. 05/03: Patient remains in the intensive care unit. He has undergone barium enema today which revealed limited single contrast barium enema. Limited distention of the left side of the colon. There is proximal to mid sigmoid diverticulosis. There he reaches the cecum and refluxes multiple distal ileal loops. There is subtle contour irregularity of the cecum and mucosal lesion or colitis here is difficult to exclude. No frankly constricting lesion is seen. Repeat chest x- ray reveals correlate for congestive heart failure, pneumonia not excluded. Patient has been continued on TPN. Patient has a trach collar place at 28%. He has been hemodynamically stable. Not requiring vasopressors. Temperature max 100.0. White count is 12.7, potassium 3.4, creatinine 0.61. Blood sugars running between 155 and 181. 05/04: Patient remains in intensive care unit. Patient pulled his NG tube out yesterday and Dr Aranda to reevaluate as he did fail swallow evaluation. Speech therapy will reevaluate today as well. Patient is scheduled for PICC line placement today for TPN and central line will then be removed. Abdomen is soft. He has had good urine output. His temperature max 101.2 axillary. He is on IV Tylenol. Patient has worked with PT and OT and up to a chair. He is extremely fatigued following this activity. Patient will have an extended recovery phase. Ativan will be changed to only at bedtime if needed and Toradol added for pain versus Dilaudid. 05/05: Patient has worsened overnight, persistent fevers now high temperature of 10-103, patient was given cooling blanket, patient was seen in ICU, pancultures were obtained, patient's diaphoretic, tachypneic, labored breathing, pulmonary has restarted him on vent support through trach collar, significant tachypnea,. I requested infectious disease to see him, Dr. Kennedy, secondary to decompensation new high gradefevers,, troponins were ordered, EKG to be done, Solu-Medrol 3 doses to be given, patient has palate shallow ulcerations doesn't look viral, right decubitus stage II pressure ulcers, no petechiae or other rash noted,patient is on TPN, no bowel movement since admission per nursing staff 05/06, patient's fever has subsided, cultures from sputum shows presumptive staph aureus, usually in Yeast species, catheter tip Pooja albicans, patient is less tachypneic and is much more comfortable not in distress, steroids has been completed 3 doses, and has some hyperglycemia, on insulin drip at 22-25 units an hour, NPH was given early this morning at 3:00 and will be started on Levemir tonight 8 units starting 3 PM daily, patient is receiving 150 g of glucose per day from TPN. Patient currently is on vancomycin and Zosyn and anidulfungin by Dr. Kennedy. Cardiology has seen the patient, rule out [place] with elevated troponin, most likely secondary to severe sepsis 05/07: Patient remains in intensive care unit on mechanical ventilation. Patient has been changed to DO NOT RESUSCITATE over the weekend. Patient has NG tube and we'll start tube feedings and plan. TPN. He has not had a bowel movement since April 19. Insulin drip will be transitioned over to long-acting Levemir and NovoLog scale. Review Of Systems:unable secondary to sedation on vent compared to previous Objective - Vital Signs Vital signs: Vital Signs Temp 100.0 F H 05/07/19 08:30 Pulse 71 05/07/19 11:37 Resp 23 05/07/19 08:30 BP 96/60 05/07/19 08:30 Pulse Ox 100 05/07/19 08:30 Intake & Output 05/06/19 05/07/19 05/07/19 18:59 06:59 18:59 Intake Total 2902.902 2934.843 532.254 Output Total 1247 670 66 Balance 2067.742 0838.843 466.254 Weight 96.9 kg 98 kg 98 kg Intake: IV 560 1984 100 .9 bolus 1000 ACETAMINOPHEN IV (For NPO 100 ) 1,000 mg In Empty Bag 1 bag @ 400 mls/hr IVPB Q6HR PRN Rx#:[id number] Mvi, Adult No.4 with Vit 44 K 10 ml Trace (Conc-1Ml/ Dose) 1 ml In Amino Acid 5%-D15w+Lytes*E* 1,000 ml @ 30 mls/hr IV .Q24H ELA Rx#:[id number] Mvi, Adult No.4 with Vit 300 K 10 ml Trace (Conc-1Ml/ Dose) 1 ml Sodium Acetate 20 meq Potassium Chloride 20 meq Magnesium Sulfate gm 1 gm Potassium Phosphate 9 mmol In Amino Acid 5%- D15w 1,000 ml @ 100 mls/ hr IV .BY DURATION ELA Rx #:[id number] Piperacillin-Tazobactam 3 200 .375 gm In Sodium Chloride 0.9% 100 ml @ 25 mls/hr IVPB Q8H ELA Rx#: [id number] Sodium Chloride 0.9% 1, 260 240 000 ml @ 20 mls/hr IV . Q24H ELA Rx#:[id number] Vancomycin 2,000 mg In 500 Sodium Chloride 0.9% 500 ml 500 ml @ 167 mls/hr IVPB Q12HR ELA Rx#: [id number] Intake, IV Titration 2342.902 950.843 432.254 Amount ACETAMINOPHEN IV (For NPO 100 ) 1,000 mg In Empty Bag 1 bag @ 400 mls/hr IVPB Q6HR PRN Rx#:[id number] Anidulafungin 100 mg In 100 84 Sodium Chloride 0.9% 100 ml @ 84 mls/hr IVPB DAILY ELA Rx#:[id number] Insulin Regular 100 unit 202.202 17.103 1.852 In Sodium Chloride 0.9% 100 ml @ Per Protocol IV .Q0M ELA Rx#:[id number] Insulin Regular 100 unit 1.465 In Sodium Chloride 0.9% 100 ml @ Per Protocol IV .Q0M ELA Rx#:[id number] Mvi, Adult No.4 with Vit 132 K 10 ml Trace (Conc-1Ml/ Dose) 1 ml Sodium Acetate 20 meq Potassium Chloride 14 meq Potassium Phosphate 12 mmol In Amino Acid 5%-D15w 1,000 ml @ 100 mls/hr IV .BY DURATION [facility] Rx#: [id number] Mvi, Adult No.4 with Vit 600 367 K 10 ml Trace (Conc-1Ml/ Dose) 1 ml Sodium Acetate 20 meq Potassium Chloride 14 meq Potassium Phosphate 12 mmol In Amino Acid 5%-D15w 1,000 ml @ 44 mls/hr IV . [id number] ELA Rx#:[id number] Mvi, Adult No.4 with Vit 132 K 10 ml Trace (Conc-1Ml/ Dose) 1 ml Sodium Acetate 20 meq Potassium Phosphate 20 mmol In Amino Acid 5%-D15w 1,000 ml @ 44 mls/hr IV . [id number] ELA Rx#:[id number] Propofol 1,000 mg In 540.700 434.740 87.937 Empty Bag 1 bag @ Titrate IV .Q0M ELA Rx#: [id number] Sodium Acetate 20 meq 200 Potassium Chloride 14 meq Magnesium Sulfate gm 1 gm Potassium Phosphate 12 mmol In Amino Acid 5%- D15w 1,000 ml @ 100 mls/ hr IV .BY DURATION [facility] Rx #:[id number] Sodium Acetate 20 meq 100 Potassium Chloride 14 meq Potassium Phosphate 12 mmol In Amino Acid 5%- D15w 1,000 ml @ 100 mls/ hr IV .BY DURATION [facility] Rx #:[id number] Sodium Phosphate 10 mmol 125 In Sodium Chloride 0.9% 250 ml @ 125 mls/hr IVPB Q2H ELA Rx#:[id number] Vancomycin 2,000 mg In 500 Sodium Chloride 0.9% 500 ml 500 ml @ 167 mls/hr IVPB Q12H ELA Rx#: [id number] Output: Urine 1247 670 66 Other: Voiding Method Indwelling Catheter Indwelling Catheter Indwelling Catheter ABP, PAP, CO, CI - Last Documented Arterial Blood Pressure 102/102 - Exam - Exam sedated on vent, trach collar, tachypneic and labored breathing - EENT Eyes: Present: anicteric sclerae - Neck Neck: Present: normal ROM - Respiratory Respiratory: bilateral: CTA, diminished, rhonchi, upper airway inspiratory stridor negative: dullness - Cardiovascular Rhythm: regular Heart sounds: normal: S1, S2 - Gastrointestinal General gastrointestinal: Present: decreased bowel sounds, soft - Integumentary Integumentary: Present: decreased turgor, normal - Psychiatric Psychiatric: Present: A&O x's 3 - Labs CBC & Chem 7: 05/07/19 04:40 05/07/19 04:40 Labs: Abnormal Lab Results - Last 24 Hours (Table) 05/06/19 05/06/19 05/06/19 Range/Units 11:53 13:05 14:52 RBC (4.30-5.90) m/uL Hgb (13.0-17.5) gm/dL Hct (39.0-53.0) % Neutrophils # (1.3-7.7) k/uL ABG pO2 (83-108) mmHg ABG O2 Saturation (94-97) % Chloride (98-107) mmol/L Carbon Dioxide (22-30) mmol/L BUN (9-20) mg/dL Glucose (74-99) mg/dL POC Glucose (mg/dL) 281 H 284 H 292 H (75-99) mg/dL Phosphorus (2.5-4.5) mg/dL Magnesium (1.6-2.3) mg/dL 05/06/19 05/06/19 05/06/19 Range/Units 16:06 16:59 18:01 RBC (4.30-5.90) m/uL Hgb (13.0-17.5) gm/dL Hct (39.0-53.0) % Neutrophils # (1.3-7.7) k/uL ABG pO2 (83-108) mmHg ABG O2 Saturation (94-97) % Chloride (98-107) mmol/L Carbon Dioxide (22-30) mmol/L BUN (9-20) mg/dL Glucose (74-99) mg/dL POC Glucose (mg/dL) 220 H 197 H 156 H (75-99) mg/dL Phosphorus (2.5-4.5) mg/dL Magnesium (1.6-2.3) mg/dL 05/06/19 05/06/19 05/06/19 Range/Units 18:48 20:08 20:56 RBC (4.30-5.90) m/uL Hgb (13.0-17.5) gm/dL Hct (39.0-53.0) % Neutrophils # (1.3-7.7) k/uL ABG pO2 (83-108) mmHg ABG O2 Saturation (94-97) % Chloride (98-107) mmol/L Carbon Dioxide (22-30) mmol/L BUN (9-20) mg/dL Glucose (74-99) mg/dL POC Glucose (mg/dL) 144 H 146 H 139 H (75-99) mg/dL Phosphorus (2.5-4.5) mg/dL Magnesium (1.6-2.3) mg/dL 05/06/19 05/06/19 05/06/19 Range/Units 22:01 23:09 23:17 RBC (4.30-5.90) m/uL Hgb (13.0-17.5) gm/dL Hct (39.0-53.0) % Neutrophils # (1.3-7.7) k/uL ABG pO2 (83-108) mmHg ABG O2 Saturation (94-97) % Chloride (98-107) mmol/L Carbon Dioxide (22-30) mmol/L BUN (9-20) mg/dL Glucose (74-99) mg/dL POC Glucose (mg/dL) 134 H 145 H 156 H (75-99) mg/dL Phosphorus (2.5-4.5) mg/dL Magnesium (1.6-2.3) mg/dL 05/07/19 05/07/19 05/07/19 Range/Units 00:06 01:03 02:01 RBC (4.30-5.90) m/uL Hgb (13.0-17.5) gm/dL Hct (39.0-53.0) % Neutrophils # (1.3-7.7) k/uL ABG pO2 (83-108) mmHg ABG O2 Saturation (94-97) % Chloride (98-107) mmol/L Carbon Dioxide (22-30) mmol/L BUN (9-20) mg/dL Glucose (74-99) mg/dL POC Glucose (mg/dL) 149 H 144 H 171 H (75-99) mg/dL Phosphorus (2.5-4.5) mg/dL Magnesium (1.6-2.3) mg/dL 05/07/19 05/07/19 05/07/19 Range/Units 03:00 04:01 04:40 RBC (4.30-5.90) m/uL Hgb (13.0-17.5) gm/dL Hct (39.0-53.0) % Neutrophils # (1.3-7.7) k/uL ABG pO2 (83-108) mmHg ABG O2 Saturation (94-97) % Chloride 116 H (98-107) mmol/L Carbon Dioxide 21 L (22-30) mmol/L BUN 42 H (9-20) mg/dL Glucose 169 H (74-99) mg/dL POC Glucose (mg/dL) 146 H 153 H (75-99) mg/dL Phosphorus 1.9 L (2.5-4.5) mg/dL Magnesium 2.4 H (1.6-2.3) mg/dL 05/07/19 05/07/19 05/07/19 Range/Units 04:40 04:55 04:58 RBC 4.07 L (4.30-5.90) m/uL Hgb 12.2 L (13.0-17.5) gm/dL Hct 38.7 L (39.0-53.0) % Neutrophils # 8.2 H (1.3-7.7) k/uL ABG pO2 127 H (83-108) mmHg ABG O2 Saturation 98.3 H (94-97) % Chloride (98-107) mmol/L Carbon Dioxide (22-30) mmol/L BUN (9-20) mg/dL Glucose (74-99) mg/dL POC Glucose (mg/dL) 160 H (75-99) mg/dL Phosphorus (2.5-4.5) mg/dL Magnesium (1.6-2.3) mg/dL 05/07/19 05/07/19 05/07/19 Range/Units 06:01 06:58 07:59 RBC (4.30-5.90) m/uL Hgb (13.0-17.5) gm/dL Hct (39.0-53.0) % Neutrophils # (1.3-7.7) k/uL ABG pO2 (83-108) mmHg ABG O2 Saturation (94-97) % Chloride (98-107) mmol/L Carbon Dioxide (22-30) mmol/L BUN (9-20) mg/dL Glucose (74-99) mg/dL POC Glucose (mg/dL) 160 H 155 H 147 H (75-99) mg/dL Phosphorus (2.5-4.5) mg/dL Magnesium (1.6-2.3) mg/dL 05/07/19 05/07/19 05/07/19 Range/Units 08:59 09:58 10:59 RBC (4.30-5.90) m/uL Hgb (13.0-17.5) gm/dL Hct (39.0-53.0) % Neutrophils # (1.3-7.7) k/uL ABG pO2 (83-108) mmHg ABG O2 Saturation (94-97) % Chloride (98-107) mmol/L Carbon Dioxide (22-30) mmol/L BUN (9-20) mg/dL Glucose (74-99) mg/dL POC Glucose (mg/dL) 163 H 145 H 157 H (75-99) mg/dL Phosphorus (2.5-4.5) mg/dL Magnesium (1.6-2.3) mg/dL Microbiology - Last 24 Hours (Table) 04/19/19 09:28 Fungal Culture - Preliminary Bronchoalviolar Lavage - Left 05/04/19 23:10 Urine Culture - Final Urine,Catheterized Pooja albicans 05/05/19 00:50 Gram Stain - Final Sputum Sputum Culture - Final Staphylococcus aureus 05/04/19 22:35 Blood Culture Gram Stain - Preliminary Blood Blood Culture - Preliminary Pooja albicans 05/04/19 22:35 Blood Culture - Final Blood Assessment and Plan Plan: 1. Abdominal pain, possible colitis, possible malignancy of the cecum, neither have been ruled out but CEA is less than 0.5.. Dr. Aranda following general surgery, patient still has no bowel movement since admission. Continue IV fluids, continue Zosyn and Eraxis. Barium study as above. Toradol added for pain. 2. Acute vent dependent respiratory failure with aspiration pneumonia, vent placement 05/04/2019 second episode 3. Severe sepsis secondary to staph species sputum culture, bacteremia with Pooja albicans, arising from multifocal pneumonia. Continue Zosyn and Eraxis. 4. ARDS secondary to multifocal pneumonia, patient's on Zosyn, infectious disease consulted for closer monitoring, sputum cultures has been sent 5. Acute hypoxic and hypercapnic respiratory failure with bilateral pulmonary infiltrates and masslike consolidation in the right lower lobe most likely secondary to massive aspiration pneumonia initial episode, acute respiratory distress syndrome. Patient is status post bronchoscopy. Patient is status post trach. 6 Mild COPD exacerbation. Continue DuoNeb treatments every 4 hours as needed. Patient was given 3 doses of steroids 7. Diabetes mellitus type 2, insulin requiring, uncontrolled with hyperglycemia. Metformin on hold. NovoLog scale before meals and at bedtime. NovoLog scale currently on insulin drip, 05/06/2019, Lantus added at 8 units daily, we would titrate, currently off Solu-Medrol 8. Generalized anxiety disorder. Citalopram 40 mg daily on hold. 9. Abdominal distention secondary to ileus. NG tube was pulled by accident. Consult with Dr. Aranda . 10. Obstructive sleep apnea noncompliant with CPAP. 11. Blood culture with coag-negative staph, contamination. 12. Delirium tremens, resolved. 13. Severe protein calorie malnutrition. Continue TPN. PICC line . Central line to be discontinued. 14. Sepsis, high-grade fevers noted, pending cultures has been obtained sputum urine and catheter tipfrom 05/04/2019. Consult with Dr. Kennedy 15 Hypertension with episode of accelerated hypertension. Continue hydralazine, Vasotec as needed Gastroesophageal reflux disease and GI prophylaxis. Continue Protonix. DVT prophylaxis. Heparin subcu. prognosis guarded, critically ill Discharge plan: To be determined. Impression and plan of care have been directed as dictated by the signing physician. Destini Navarro nurse practitioner acting as scribe for signing physician.
[2019-05-07 13:05] LABS: Glucose,Whole Blood 149 mg/dL (75-99)
--- NOTE | 2019-05-07 13:07 | XR ---
EXAMINATION TYPE: XR chest 1V portable DATE OF EXAM: 05/07/2019 COMPARISON: Prior chest 05/07/2019 HISTORY: NG tube placement TECHNIQUE: Single frontal view of the chest is obtained. FINDINGS: There is been interval placement of an NG tube which is coiled within the left upper quadr ant. No other significant interval change. IMPRESSION: Interval NG tube placement as described.
[2019-05-07] MEDS ORDERED: VANCOMYCIN TROUGH DUE 1 EACH MISC MISCELLANE ONE (15:00)
--- NOTE | 2019-05-07 16:04 | P.PN ---
Subjective Progress Note Date: 05/07/19 On 05/07/2019 I'm seeing this patient for a follow-up. The patient was recently treated and currently is on propofol at 75 g per KG pigmented. The patient obviously decompensated and the patient was found to have positive candidemia and systemic fungemia probably related to line infection. The patient is still on TPN for nutritional support. The blood culture and a triple lumen catheter tip came back positive for Pooja albicans. The urine was also positive for Pooja albicans. The catheter was positive for Pooja albicans. The triple- lumen catheter was removed and the patient currently has a PICC line. Is still on TPN for nutritional support. He is on Eraxis and the patient is currently hemodynamically stable on no pressors. Abdomen is nondistended. No fever. No chills. He has adequate urine output. He also had staph aureus in his sputum and he was placed on vancomycin. He is also on IV Zosyn. ID is on the case. The white cell count this morning is at 10.0. The blood gases this morning showed a pH of 7.36 with a pCO2 of 39 and pO2 127 and this was done while the patient on assist-control mode rate of 26 with a tidal volume of 450 and FiO2 of 50% with a PEEP of 5. Chest x-ray shows some limited infiltration of the right lower lobe. There is a right-sided PICC line catheter in place. No evidence of any pneumothorax. No evidence of any significant pleural effusion. There is interstitial edema. The renal function is stable. The lactic acid level is down to 1.9. Vancomycin trough is a 15.5. Objective - Vital Signs Vital signs: Vital Signs Temp 38.2 F L 05/07/19 14:00 Pulse 70 05/07/19 15:17 Resp 27 H 05/07/19 14:00 BP 104/54 05/07/19 14:00 Pulse Ox 98 05/07/19 14:00 Intake & Output 05/06/19 05/07/19 05/07/19 18:59 06:59 18:59 Intake Total 2902.902 2934.843 1208.458 Output Total 1247 670 566 Balance 2317.370 0580.843 642.458 Weight 96.9 kg 98 kg 98 kg Intake: IV 560 1984 180 .9 bolus 1000 ACETAMINOPHEN IV (For NPO 100 ) 1,000 mg In Empty Bag 1 bag @ 400 mls/hr IVPB Q6HR PRN Rx#:[id number] Mvi, Adult No.4 with Vit 44 K 10 ml Trace (Conc-1Ml/ Dose) 1 ml In Amino Acid 5%-D15w+Lytes*E* 1,000 ml @ 30 mls/hr IV .Q24H ELA Rx#:[id number] Mvi, Adult No.4 with Vit 300 K 10 ml Trace (Conc-1Ml/ Dose) 1 ml Sodium Acetate 20 meq Potassium Chloride 20 meq Magnesium Sulfate gm 1 gm Potassium Phosphate 9 mmol In Amino Acid 5%- D15w 1,000 ml @ 100 mls/ hr IV .BY DURATION [facility] Rx #:[id number] Piperacillin-Tazobactam 3 200 .375 gm In Sodium Chloride 0.9% 100 ml @ 25 mls/hr IVPB Q8H ELA Rx#: [id number] Sodium Chloride 0.9% 1, 260 240 80 000 ml @ 20 mls/hr IV . Q24H ELA Rx#:[id number] Vancomycin 2,000 mg In 500 Sodium Chloride 0.9% 500 ml 500 ml @ 167 mls/hr IVPB Q12HR ELA Rx#: [id number] Intake, IV Titration 2342.902 663.951 4686.458 Amount ACETAMINOPHEN IV (For NPO 100 ) 1,000 mg In Empty Bag 1 bag @ 400 mls/hr IVPB Q6HR PRN Rx#:[id number] Anidulafungin 100 mg In 100 84 Sodium Chloride 0.9% 100 ml @ 84 mls/hr IVPB DAILY ELA Rx#:[id number] Insulin Regular 100 unit 202.202 17.103 1.852 In Sodium Chloride 0.9% 100 ml @ Per Protocol IV .Q0M ELA Rx#:[id number] Insulin Regular 100 unit 1.465 In Sodium Chloride 0.9% 100 ml @ Per Protocol IV .Q0M ELA Rx#:[id number] Mvi, Adult No.4 with Vit 132 K 10 ml Trace (Conc-1Ml/ Dose) 1 ml Sodium Acetate 20 meq Potassium Chloride 14 meq Potassium Phosphate 12 mmol In Amino Acid 5%-D15w 1,000 ml @ 100 mls/hr IV .BY DURATION [facility] Rx#: [id number] Mvi, Adult No.4 with Vit 600 367 K 10 ml Trace (Conc-1Ml/ Dose) 1 ml Sodium Acetate 20 meq Potassium Chloride 14 meq Potassium Phosphate 12 mmol In Amino Acid 5%-D15w 1,000 ml @ 44 mls/hr IV . [id number] ELA Rx#:[id number] Mvi, Adult No.4 with Vit 132 K 10 ml Trace (Conc-1Ml/ Dose) 1 ml Sodium Acetate 20 meq Potassium Phosphate 20 mmol In Amino Acid 5%-D15w 1,000 ml @ 44 mls/hr IV . [id number] ELA Rx#:[id number] Propofol 1,000 mg In 540.700 434.740 283.141 Empty Bag 1 bag @ Titrate IV .Q0M ELA Rx#: [id number] Sodium Acetate 20 meq 200 Potassium Chloride 14 meq Magnesium Sulfate gm 1 gm Potassium Phosphate 12 mmol In Amino Acid 5%- D15w 1,000 ml @ 100 mls/ hr IV .BY DURATION [facility] Rx #:[id number] Sodium Acetate 20 meq 100 Potassium Chloride 14 meq Potassium Phosphate 12 mmol In Amino Acid 5%- D15w 1,000 ml @ 100 mls/ hr IV .BY DURATION [facility] Rx #:[id number] Sodium Phosphate 10 mmol 500 In Sodium Chloride 0.9% 250 ml @ 125 mls/hr IVPB Q2H ELA Rx#:[id number] Vancomycin 2,000 mg In 500 Sodium Chloride 0.9% 500 ml 500 ml @ 167 mls/hr IVPB Q12H ELA Rx#: [id number] Tube Feeding 26 Output: Urine 1247 670 566 Other: Voiding Method Indwelling Catheter Indwelling Catheter Indwelling Catheter ABP, PAP, CO, CI - Last Documented Arterial Blood Pressure 102/102 - Exam Gen. appearance, comfortable The patient has a tracheostomy tube in place. The patient is well sedated on propofol and calm and comfortable. Head exam was generally normal. There was no scleral icterus or corneal arcus. Mucous membranes were moist. Neck was supple and without jugular venous distension, thyromegaly, or carotid bruits. Carotids were easily palpable bilaterally. There was no adenopathy. The patient has a tracheostomy tube in place. No evidence of any air leak on a tracheostomy tube stoma. Lungs were clear to auscultation and percussion, and with normal diaphragmatic excursion. No wheezes or rales were noted. Scattered rhonchi heard throughout the lung oneil bilaterally and scattered expiratory wheeze Cardiac exam revealed the PMI to be normally situated and sized. The rhythm was regular and no extrasystoles were noted during several minutes of auscultation. The first and second heart sounds were normal and physiologic splitting of the second heart sound was noted. There were no murmurs, rubs, clicks, or gallops. Abdomen is soft. Nondistended. No direct tenderness rebound tensile guarding at this point in time. Bowel sounds are hypoactive at the present. The patient has no significant abdominal distention. Examination of the extremities revealed easily palpable radial, femoral and pedal pulses. There was no cyanosis, clubbing and there is +1 pitting edema in the lower extremities and upper extremities bilaterally. Neurologically the patient is sedated however she can easily the sedation and he withdraws to painful stimulation. Examination of the skin revealed no evidence of significant rashes, suspicious appearing nevi or other concerning lesions. - Labs CBC & Chem 7: 05/07/19 04:40 05/07/19 04:40 Labs: Abnormal Lab Results - Last 24 Hours (Table) 05/06/19 05/06/19 05/06/19 Range/Units 16:06 16:59 18:01 RBC (4.30-5.90) m/uL Hgb (13.0-17.5) gm/dL Hct (39.0-53.0) % Neutrophils # (1.3-7.7) k/uL ABG pO2 (83-108) mmHg ABG O2 Saturation (94-97) % Chloride (98-107) mmol/L Carbon Dioxide (22-30) mmol/L BUN (9-20) mg/dL Glucose (74-99) mg/dL POC Glucose (mg/dL) 220 H 197 H 156 H (75-99) mg/dL Phosphorus (2.5-4.5) mg/dL Magnesium (1.6-2.3) mg/dL 05/06/19 05/06/19 05/06/19 Range/Units 18:48 20:08 20:56 RBC (4.30-5.90) m/uL Hgb (13.0-17.5) gm/dL Hct (39.0-53.0) % Neutrophils # (1.3-7.7) k/uL ABG pO2 (83-108) mmHg ABG O2 Saturation (94-97) % Chloride (98-107) mmol/L Carbon Dioxide (22-30) mmol/L BUN (9-20) mg/dL Glucose (74-99) mg/dL POC Glucose (mg/dL) 144 H 146 H 139 H (75-99) mg/dL Phosphorus (2.5-4.5) mg/dL Magnesium (1.6-2.3) mg/dL 05/06/19 05/06/19 05/06/19 Range/Units 22:01 23:09 23:17 RBC (4.30-5.90) m/uL Hgb (13.0-17.5) gm/dL Hct (39.0-53.0) % Neutrophils # (1.3-7.7) k/uL ABG pO2 (83-108) mmHg ABG O2 Saturation (94-97) % Chloride (98-107) mmol/L Carbon Dioxide (22-30) mmol/L BUN (9-20) mg/dL Glucose (74-99) mg/dL POC Glucose (mg/dL) 134 H 145 H 156 H (75-99) mg/dL Phosphorus (2.5-4.5) mg/dL Magnesium (1.6-2.3) mg/dL 05/07/19 05/07/19 05/07/19 Range/Units 00:06 01:03 02:01 RBC (4.30-5.90) m/uL Hgb (13.0-17.5) gm/dL Hct (39.0-53.0) % Neutrophils # (1.3-7.7) k/uL ABG pO2 (83-108) mmHg ABG O2 Saturation (94-97) % Chloride (98-107) mmol/L Carbon Dioxide (22-30) mmol/L BUN (9-20) mg/dL Glucose (74-99) mg/dL POC Glucose (mg/dL) 149 H 144 H 171 H (75-99) mg/dL Phosphorus (2.5-4.5) mg/dL Magnesium (1.6-2.3) mg/dL 05/07/19 05/07/19 05/07/19 Range/Units 03:00 04:01 04:40 RBC (4.30-5.90) m/uL Hgb (13.0-17.5) gm/dL Hct (39.0-53.0) % Neutrophils # (1.3-7.7) k/uL ABG pO2 (83-108) mmHg ABG O2 Saturation (94-97) % Chloride 116 H (98-107) mmol/L Carbon Dioxide 21 L (22-30) mmol/L BUN 42 H (9-20) mg/dL Glucose 169 H (74-99) mg/dL POC Glucose (mg/dL) 146 H 153 H (75-99) mg/dL Phosphorus 1.9 L (2.5-4.5) mg/dL Magnesium 2.4 H (1.6-2.3) mg/dL 05/07/19 05/07/19 05/07/19 Range/Units 04:40 04:55 04:58 RBC 4.07 L (4.30-5.90) m/uL Hgb 12.2 L (13.0-17.5) gm/dL Hct 38.7 L (39.0-53.0) % Neutrophils # 8.2 H (1.3-7.7) k/uL ABG pO2 127 H (83-108) mmHg ABG O2 Saturation 98.3 H (94-97) % Chloride (98-107) mmol/L Carbon Dioxide (22-30) mmol/L BUN (9-20) mg/dL Glucose (74-99) mg/dL POC Glucose (mg/dL) 160 H (75-99) mg/dL Phosphorus (2.5-4.5) mg/dL Magnesium (1.6-2.3) mg/dL 05/07/19 05/07/19 05/07/19 Range/Units 06:01 06:58 07:59 RBC (4.30-5.90) m/uL Hgb (13.0-17.5) gm/dL Hct (39.0-53.0) % Neutrophils # (1.3-7.7) k/uL ABG pO2 (83-108) mmHg ABG O2 Saturation (94-97) % Chloride (98-107) mmol/L Carbon Dioxide (22-30) mmol/L BUN (9-20) mg/dL Glucose (74-99) mg/dL POC Glucose (mg/dL) 160 H 155 H 147 H (75-99) mg/dL Phosphorus (2.5-4.5) mg/dL Magnesium (1.6-2.3) mg/dL 05/07/19 05/07/19 05/07/19 Range/Units 08:59 09:58 10:59 RBC (4.30-5.90) m/uL Hgb (13.0-17.5) gm/dL Hct (39.0-53.0) % Neutrophils # (1.3-7.7) k/uL ABG pO2 (83-108) mmHg ABG O2 Saturation (94-97) % Chloride (98-107) mmol/L Carbon Dioxide (22-30) mmol/L BUN (9-20) mg/dL Glucose (74-99) mg/dL POC Glucose (mg/dL) 163 H 145 H 157 H (75-99) mg/dL Phosphorus (2.5-4.5) mg/dL Magnesium (1.6-2.3) mg/dL 05/07/19 05/07/19 Range/Units 11:58 13:02 RBC (4.30-5.90) m/uL Hgb (13.0-17.5) gm/dL Hct (39.0-53.0) % Neutrophils # (1.3-7.7) k/uL ABG pO2 (83-108) mmHg ABG O2 Saturation (94-97) % Chloride (98-107) mmol/L Carbon Dioxide (22-30) mmol/L BUN (9-20) mg/dL Glucose (74-99) mg/dL POC Glucose (mg/dL) 141 H 149 H (75-99) mg/dL Phosphorus (2.5-4.5) mg/dL Magnesium (1.6-2.3) mg/dL Microbiology - Last 24 Hours (Table) 04/19/19 09:28 Fungal Culture - Preliminary Bronchoalviolar Lavage - Left 05/04/19 23:10 Urine Culture - Final Urine,Catheterized Pooja albicans 05/05/19 00:50 Gram Stain - Final Sputum Sputum Culture - Final Staphylococcus aureus 05/04/19 22:35 Blood Culture Gram Stain - Preliminary Blood Blood Culture - Preliminary Pooja albicans Assessment and Plan Plan: 1 acute hypoxic/hypercapnic respiratory failure with development of diffuse bilateral lower lobe pneumonia. The patient was weaned off after this treatment of his bilateral pneumonia. Subsequently the patient developed systemic can didemia and the patient is found again to be in respiratory failure currently back on a mechanical ventilator. Chest x-ray was reviewed. Blood chemistries was reviewed. 2 abdominal distention with possibility of a cecal mass versus inflammatory changes. The colonoscopy was incomplete. Barium enema did not show evidence of any anatomic obstruction although there was concern of a inflammatory c hanges/tumor In the cecal area and mucosal lesions/colitis/mass cannot be completely excluded. No selin constricting lesion is seen. The patient was on TPN for nutritional support for the past 2 weeks. 3 sepsis secondary to systemic candidemia with Pooja albicans growing in the catheter tip in the blood and the urine. Currently on a Eraxis. The catheter was removed and the patient was given a PICC line. Follow-up cultures are still pending for now. 4 obesity. 5 obstructive sleep apnea 6 hypertension 7 hyperlipidemia 8 Chronic back pain 9 alcoholism 10 hypotension recovered and the patient is currently on no pressors. 11 MSSA in the sputum and the patient is currently taking a combination of Zosyn and vancomycin. 12 episodic fever secondary to systemic fungemia. The patient is receiving IV Tylenol for that. PLAN We'll cut down the FiO2 down to 40%.. Keep the rest of the vent setting unchanged. Repeat blood cultures of been sent. Blood gases was noted. Chest x-ray was noted. The patient will be started on enteral feeding for nutritional support. We'll get a dietary consultation will start the patient on gradual escalating doses of enteral feeding. Will ultimately plan to discontinue the TPN once the patient reaches goal in terms of his enteral feeding as long as he is able to tolerate that. Continue antiplatelet agents. Repeat cultures. Keep the patient sedated for today. We'll continue to follow. His condition is critical and the patient has bad prognosis or poor prognosis based on the above- mentioned comorbidities. There is a critically care evaluation that was done and more than 35 minutes. Time with Patient: Greater than 30
[2019-05-07 17:23] LABS: Glucose,Whole Blood 119 mg/dL (75-99)
[2019-05-07] MEDS: SODIUM CHLORIDE 0.9% 1,000 ML IV SCH (17:33)
[2019-05-07] MEDS: CISATRACURIUM 200 MG in SODIUM CHLORIDE 0.9% 180 ML IV SCH (18:13)
[2019-05-07] MEDS: IBUPROFEN ORAL SUSP 100 MG/5 ML CUP PO PRN (19:59)
[2019-05-07 20:21] LABS: Glucose,Whole Blood 140 mg/dL (75-99)
[2019-05-07 21:57] LABS: Glucose,Whole Blood 166 mg/dL (75-99)
[2019-05-07] MEDS: INSULIN DETEMIR (LEVEMIR) 100 UNIT/ML SYR SQ SCH (22:49)
[2019-05-07 23:39] LABS: Glucose,Whole Blood 142 mg/dL (75-99)
[2019-05-08] MEDS ORDERED: MVI, ADULT NO.4 WITH VIT K 10 ML, TRACE (CONC-1ML/DOSE) 1 ML, SODIUM ACETATE 20 MEQ, PO... IV SCH ×5
[2019-05-08] MEDS: PROPOFOL 1,000 MG in EMPTY BAG 1 BAG IV SCH ×11 (00:02→22:23)
[2019-05-08] MEDS: INSULIN ASPART (NovoLOG) 100 UNIT/ML VIAL SQ SCH ×5 (00:20→23:54)
[2019-05-08] MEDS: ARTIFICIAL TEARS-HYPROMELLOSE DROPS 15 ML BTL BOTH EYES SCH ×7 (00:21→23:54)
[2019-05-08] MEDS: HYDROmorphone 0.5 MG/0.5 ML SYRINGE IVP PRN ×8 (01:55→23:53)
[2019-05-08] MEDS: VANCOMYCIN 2,000 MG in SODIUM CHLORIDE 0.9% 500 ML 500 ML IVPB SCH ×2 (03:42→16:38)
[2019-05-08] MEDS: PIPERACILLIN-TAZOBACTAM 3.375 GM in SODIUM CHLORIDE 0.9% 100 ML IVPB SCH ×3 (03:43→21:21)
[2019-05-08] MEDS: IPRATROPIUM-ALBUTEROL 3 ML NEB INHALATION SCH ×5 (03:43→20:31)
[2019-05-08 04:06] LABS: Allen Test Performed? Yes
[2019-05-08 04:08] LABS: ABG Base Excess -3.4 mmol/L; ABG HCO3 22 mmol/L (21-25); ABG Oxygen Saturation 98.2 % (94-97); ABG PCO2 35 mmHg (35-45); ABG PO2 120 mmHg (83-108); ABG TCO2 23 mmol/L (19-24)
[2019-05-08] MEDS: ACETAMINOPHEN IV (For NPO) 1,000 MG in EMPTY BAG 1 BAG IVPB PRN (04:08)
[2019-05-08 05:50] LABS: Glucose,Whole Blood 138 mg/dL (75-99)
[2019-05-08 06:02] LABS: Basophils % (A) 0 %; Eosinophils # (A) 0.4 k/uL (0-0.7); Eosinophils % (A) 4 %; HCT 38.4 % (39.0-53.0); HGB 11.9 gm/dL (13.0-17.5); Hypochromasia Marked; Lymphocytes # (A) 1.3 k/uL (1.0-4.8); Lymphocytes % (A) 14 %; MCH 30.8 pg (25.0-35.0); MCHC 31.2 g/dL (31.0-37.0); MCV 98.9 fL (80.0-100.0); Macrocytosis Slight; Mean Platelet Volume 9.7; Monocytes # (A) 0.4 k/uL (0-1.0); Monocytes % (A) 5 %; Neutrophils # (A) 6.6 k/uL (1.3-7.7); Neutrophils % (A) 74 %; Platelet Count 144 k/uL (150-450); RBC 3.88 m/uL (4.30-5.90); RDW 15.2 % (11.5-15.5); WBC 8.9 k/uL (3.8-10.6)
[2019-05-08 06:06] LABS: African American GFR (CKD) >90 (>60 ml/min/1.73 sqM); Anion Gap 9 mmol/L; Blood Urea Nitrogen 29 mg/dL (9-20); Calcium 9.5 mg/dL (8.4-10.2); Carbon Dioxide 17 mmol/L (22-30); Chloride 119 mmol/L (98-107); Glucose 130 mg/dL (74-99); Sodium 145 mmol/L (137-145)
[2019-05-08 06:24] LABS: Magnesium 2.1 mg/dL (1.6-2.3); Phosphorus 3.9 mg/dL (2.5-4.5); Potassium 4.8 mmol/L (3.5-5.1)
--- NOTE | 2019-05-08 07:53 | XR ---
EXAMINATION TYPE: XR chest 1V portable DATE OF EXAM: 05/08/2019 COMPARISON: Prior chest x-ray 05/07/2019 HISTORY: Shortness of breath TECHNIQUE: Single frontal view of the chest is obtained. FINDINGS: Findings are similar to prior exam. Tracheostomy tube is overlying appropriate position. T here is a right-sided PICC line present with the distal tip overlying the region of the right atrium. Orogastric tube is in place. Distal tip is not included on exam. There are likely subsegmental atele ctatic changes at the lung bases. Interstitium is increased. No pneumothorax. IMPRESSION: There may be component of interstitial edema, correlate to exclude pneumonia, rotated ex am. Follow-up recommended.
[2019-05-08] MEDS: PANTOPRAZOLE 40 MG/10 ML VIAL IV SCH (08:15)
[2019-05-08] MEDS: ANIDULAFUNGIN 100 MG in SODIUM CHLORIDE 0.9% 100 ML IVPB SCH (08:15)
[2019-05-08] MEDS: HEPARIN SODIUM,PORCINE 5,000 UNIT/ML 1 ML VIAL SQ SCH ×2 (08:15→21:22)
[2019-05-08] MEDS: CHLORHEXIDINE GLUCONATE 15 ML CUP MUCOUS MEM SCH ×2 (08:15→21:22)
[2019-05-08] MEDS: BISACODYL 10 MG SUPP RECTAL SCH (11:09)
[2019-05-08 11:51] LABS: Glucose,Whole Blood 131 mg/dL (75-99)
--- NOTE | 2019-05-08 12:14 | XR ---
KUB HISTORY: Ileus Frontal KUB submitted on 2 images There is contrast material present within the ascending and proximal transverse colon as well as dist al transverse colon and descending colon, sigmoid colon. Contrast noted within the rectum. Degenerati ve disc changes are present in the visualized spine. There is no pneumoperitoneum present. NG tube is present in left upper quadrant. Entire abdomen is not included on exam. IMPRESSION: Contrast material has coursed within the colon as described. NG tube is described.
[2019-05-08] MEDS: IBUPROFEN ORAL SUSP 100 MG/5 ML CUP PO PRN ×2 (13:31→18:49)
--- NOTE | 2019-05-08 13:50 | P.PN ---
Subjective Progress Note Date: 05/08/19 On 05/07/2019 I'm seeing this patient for a follow-up. The patient was recently treated and currently is on propofol at 75 g per KG pigmented. The patient obviously decompensated and the patient was found to have positive candidemia and systemic fungemia probably related to line infection. The patient is still on TPN for nutritional support. The blood culture and a triple lumen catheter tip came back positive for Pooja albicans. The urine was also positive for Pooja albicans. The catheter was positive for Pooja albicans. The triple- lumen catheter was removed and the patient currently has a PICC line. Is still on TPN for nutritional support. He is on Eraxis and the patient is currently hemodynamically stable on no pressors. Abdomen is nondistended. No fever. No chills. He has adequate urine output. He also had staph aureus in his sputum and he was placed on vancomycin. He is also on IV Zosyn. ID is on the case. The white cell count this morning is at 10.0. The blood gases this morning showed a pH of 7.36 with a pCO2 of 39 and pO2 127 and this was done while the patient on assist-control mode rate of 26 with a tidal volume of 450 and FiO2 of 50% with a PEEP of 5. Chest x-ray shows some limited infiltration of the right lower lobe. There is a right-sided PICC line catheter in place. No evidence of any pneumothorax. No evidence of any significant pleural effusion. There is interstitial edema. The renal function is stable. The lactic acid level is down to 1.9. Vancomycin trough is a 15.5. On today's evaluation of 05/08/2019 I'm seeing this patient for a follow-up. The patient is still having on and off fever. Repeat blood cultures of been sent in regards to his systemic candidemia and there is also still pending for now. The patient is on the appropriate antifungal coverage. The patient is also on a combination of Zosyn and vancomycin. Note that the patient is hemodynamically stable. No hypotension. He is maintaining his own blood pres sure. As a PICC line right upper extremity. TPN was discontinued yesterday the patient was started on enteral feeding for nutritional support. He is at goal at 13mL an hour of vital high protein. No abdominal distention. The patient seems to be tolerating the tube feeds without any major difficulties. He has not had any bowel movement activity. The patient is still sedated with propofol. We're going to gradually wean off the propofol and awake this patient up. At the same time the patient be kept on an assist-control mode of ventilation. The vent settings is currently at a tidal volume of 450 with a rate of 26 and FiO2 of 50% with a PEEP of 5. The blood gas today showed a pH of 7.4 with a pCO2 of 35 and pO2 of 120. Tracheostomy tube is in place. No significant leaks on the tracheostomy tube. He is producing adequate amount of urine output. No leukocytosis. White second was at 8.9 with a hemoglobin of 11.9. No other significant events otherwise for now. FiO2 was dropped down to 30% based on the above-mentioned blood gases. Objective - Vital Signs Vital signs: Vital Signs Temp 101.7 F H 05/08/19 12:00 Pulse 84 05/08/19 13:00 Resp 26 H 05/08/19 13:00 BP 122/65 05/08/19 13:00 Pulse Ox 95 05/08/19 13:00 Intake & Output 05/07/19 05/08/19 05/08/19 18:59 06:59 18:59 Intake Total 2145.428 1728.30 708.455 Output Total 911 780 655 Balance 1234.428 948.30 53.455 Weight 98 kg 102.9 kg Intake: IV 260 1050 310 ACETAMINOPHEN IV (For NPO 100 ) 1,000 mg In Empty Bag 1 bag @ 400 mls/hr IVPB Q6HR PRN Rx#:[id number] Piperacillin-Tazobactam 3 200 100 .375 gm In Sodium Chloride 0.9% 100 ml @ 25 mls/hr IVPB Q8H [facility] Rx#: [id number] Sodium Chloride 0.9% 1, 160 350 210 000 ml @ 20 mls/hr IV . Q24H [facility] Rx#:[id number] Vancomycin 2,000 mg In 500 Sodium Chloride 0.9% 500 ml 500 ml @ 167 mls/hr IVPB Q12H [facility] Rx#: [id number] Intake, IV Titration 1777.428 432.30 359.455 Amount ACETAMINOPHEN IV (For NPO 100 ) 1,000 mg In Empty Bag 1 bag @ 400 mls/hr IVPB Q6HR PRN Rx#:[id number] Anidulafungin 100 mg In 84 100 Sodium Chloride 0.9% 100 ml @ 84 mls/hr IVPB DAILY [facility] Rx#:[id number] Insulin Regular 100 unit 1.852 In Sodium Chloride 0.9% 100 ml @ Per Protocol IV .Q0M [facility] Rx#:[id number] Insulin Regular 100 unit 1.465 In Sodium Chloride 0.9% 100 ml @ Per Protocol IV .Q0M [facility] Rx#:[id number] Mvi, Adult No.4 with Vit 132 K 10 ml Trace (Conc-1Ml/ Dose) 1 ml Sodium Acetate 20 meq Potassium Phosphate 20 mmol In Amino Acid 5%-D15w 1,000 ml @ 44 mls/hr IV . [id number] [facility] Rx#:[id number] Propofol 1,000 mg In 458.111 432.30 259.455 Empty Bag 1 bag @ Titrate IV .Q0M [facility] Rx#: [id number] Sodium Phosphate 10 mmol 500 In Sodium Chloride 0.9% 250 ml @ 125 mls/hr IVPB Q2H [facility] Rx#:[id number] Vancomycin 2,000 mg In 500 Sodium Chloride 0.9% 500 ml 500 ml @ 167 mls/hr IVPB Q12H [facility] Rx#: [id number] Tube Feeding 78 156 39 Other 30 90 Output: Urine 911 780 655 Other: Voiding Method Indwelling Catheter Indwelling Catheter Indwelling Catheter ABP, PAP, CO, CI - Last Documented Arterial Blood Pressure 102/102 - Exam Gen. appearance, comfortable The patient has a tracheostomy tube in place. The patient is well sedated on propofol and calm and comfortable. Head exam was generally normal. There was no scleral icterus or corneal arcus. Mucous membranes were moist. Neck was supple and without jugular venous distension, thyromegaly, or carotid bruits. Carotids were easily palpable bilaterally. There was no adenopathy. The patient has a tracheostomy tube in place. No evidence of any air leak on a tracheostomy tube stoma. Lungs were clear to auscultation and percussion, and with normal diaphragmatic excursion. No wheezes or rales were noted. Scattered rhonchi heard throughout the lung oneil bilaterally and scattered expiratory wheeze Cardiac exam revealed the PMI to be normally situated and sized. The rhythm was regular and no extrasystoles were noted during several minutes of auscultation. The first and second heart sounds were normal and physiologic splitting of the second heart sound was noted. There were no murmurs, rubs, clicks, or gallops. Abdomen is soft. Nondistended. No direct tenderness rebound tensile guarding at this point in time. Bowel sounds are hypoactive at the present. The patient has no significant abdominal distention. Examination of the extremities revealed easily palpable radial, femoral and pedal pulses. There was no cyanosis, clubbing and there is +1 pitting edema in the lower extremities and upper extremities bilaterally. Neurologically the patient is sedated however she can easily the sedation and he withdraws to painful stimulation. Examination of the skin revealed no evidence of significant rashes, suspicious appearing nevi or other concerning lesions. - Labs CBC & Chem 7: 05/08/19 04:08 05/08/19 04:08 Labs: Abnormal Lab Results - Last 24 Hours (Table) 05/07/19 05/07/19 05/07/19 Range/Units 17:21 20:17 21:43 RBC (4.30-5.90) m/uL Hgb (13.0-17.5) gm/dL Hct (39.0-53.0) % Plt Count (150-450) k/uL ABG pO2 (83-108) mmHg ABG O2 Saturation (94-97) % Chloride (98-107) mmol/L Carbon Dioxide (22-30) mmol/L BUN (9-20) mg/dL Creatinine (0.66-1.25) mg/dL Glucose (74-99) mg/dL POC Glucose (mg/dL) 119 H 140 H 166 H (75-99) mg/dL 05/07/19 05/08/19 05/08/19 Range/Units 23:37 04:02 04:08 RBC 3.88 L (4.30-5.90) m/uL Hgb 11.9 L (13.0-17.5) gm/dL Hct 38.4 L (39.0-53.0) % Plt Count 144 L (150-450) k/uL ABG pO2 120 H (83-108) mmHg ABG O2 Saturation 98.2 H (94-97) % Chloride (98-107) mmol/L Carbon Dioxide (22-30) mmol/L BUN (9-20) mg/dL Creatinine (0.66-1.25) mg/dL Glucose (74-99) mg/dL POC Glucose (mg/dL) 142 H (75-99) mg/dL 05/08/19 05/08/19 05/08/19 Range/Units 04:08 05:46 11:47 RBC (4.30-5.90) m/uL Hgb (13.0-17.5) gm/dL Hct (39.0-53.0) % Plt Count (150-450) k/uL ABG pO2 (83-108) mmHg ABG O2 Saturation (94-97) % Chloride 119 H (98-107) mmol/L Carbon Dioxide 17 L (22-30) mmol/L BUN 29 H (9-20) mg/dL Creatinine 0.55 L (0.66-1.25) mg/dL Glucose 130 H (74-99) mg/dL POC Glucose (mg/dL) 138 H 131 H (75-99) mg/dL Microbiology - Last 24 Hours (Table) 05/04/19 22:35 Blood Culture Gram Stain - Final Blood Blood Culture - Final Pooja albicans 04/19/19 09:28 Acid Fast Bacilli Smear - Final Bronchoalviolar Lavage - Left Acid Fast Bacilli Culture - Preliminary 04/19/19 09:28 Fungal Culture - Preliminary Bronchoalviolar Lavage - Left 05/04/19 23:10 Urine Culture - Final Urine,Catheterized Pooja albicans Assessment and Plan Plan: 1 acute hypoxic/hypercapnic respiratory failure with development of diffuse bilateral lower lobe pneumonia. The patient was weaned off after this treatment of his bilateral pneumonia. Subsequently the patient developed systemic candidemia and the patient is found again to be in respiratory failure currently back on a mechanical ventilator. Chest x-ray was reviewed. Blood chemistries was reviewed. On today's evaluation of 05/08/2019 the patient remains on a mechanical ventilator. The ventilator settings were checked. The patient was dropped down to FiO2 of 30%. The patient will be gradually taken off the sedation and he'll be kept on assist control mode of ventilation for now. 2 abdominal distention with possibility of a cecal mass versus inflammatory changes. The colonoscopy was incomplete. Barium enema did not show evidence of any anatomic obstruction although there was concern of a inflammatory changes/tumor in the cecal area and mucosal lesions/colitis/mass cannot be completely excluded. No selin constricting lesion is seen. The patient was on TPN for nutritional support for the past 2 weeks. On yesterday's evaluation after this patient off TPN and start the patient on enteral feeding for nutritional support. The patient is tolerating the tube feeds well. He will be gradually advanced on his enteral feeding. He is on no TPN for now. He is receiving vital high protein at the rate of 50 mL an hour. No bowel movement activity yet. 3 sepsis secondary to systemic candidemia with Pooja albicans growing in the catheter tip in the blood and the urine. Currently on a Eraxis. The catheter was removed and the patient was given a PICC line. Follow-up cultures are still pending for now.The patient is still having fever. Nevertheless, the patient is still receiving appropriate antibiotic coverage for now with antifungal agents and antibacterial agents. Hemodynamically stable at this point in time. 4 obesity. 5 obstructive sleep apnea 6 hypertension 7 hyperlipidemia 8 Chronic back pain 9 alcoholism 10 hypotension recovered and the patient is currently on no pressors. 11 MSSA in the sputum and the patient is currently taking a combination of Zosyn and vancomycin. 12 episodic fever secondary to systemic fungemia. The patient is receiving IV Tylenol for that. PLAN Wean off sedation. Assessment low status. Advance tube feeds. Keep the patient off TPN for now. Awaiting follow-up blood cultures and fungal cultures. Dulcolax suppositories for bowel activity. We'll continue to follow. Conditi on is still critical. For now, the plan is to wean this patient off the sedation. Monitor the blood culture. Repeat echo cardiac exam showed a preserved LV function. It was a poor window and the valvular structures were not adequately assessed. We'll continue to follow and make further recommen dations based on his progress. FiO2 was dropped down to 30%. We'll follow. This is a critically care evaluation that was done more than 30 minutes. Time with Patient: Greater than 30
--- NOTE | 2019-05-08 14:36 | P.PN ---
Subjective Progress Note Date: 05/08/19 This is a 69-year-old male patient of Dr. Gallardo with past medical history of hypertension, hyperlipidemia, COPD, gastroesophageal reflux disease, remote history of tobacco use, obstructive sleep apnea not using CPAP. Patient complains of sudden onset of abdominal pain starting on Tuesday. He also complains of bloating in the abdomen for the past couple months as well as weight loss of 5-10 pounds over the past 3 months. He complains of decreased appetite. He states he has had occasional burgundy stools. He denies any black stools, no diarrhea, no vomiting. He denies any urinary symptoms. Patient states he had his last colonoscopy in 2013 which was normal. Patient presents to [facility] for evaluation. Abdominal x-ray shows no acute findings. CAT scan of the abdomen and pelvis showed marked thickening of the cecum concerning for malignancy. A nonspecific colitis is not excluded but felt to be less likely. Thickening in the gastric rugae which may be secondary to under distention versus a nonspecific gastritis. EKG is a sinus tachycardia with right bundle branch block, left AFB. WBC 16.7, hemoglobin 14.7, creatinine 0.74. Troponin negative. Amylase and lipase, liver function tests all normal. Urinalysis was clear with 1+ protein. Patient was admitted to the [facility] floor, consult with Dr. Givens, IV fluids, pain medications and Zofran. Plan is for colonoscopy tomorrow. 04/17: Overnight, patient developed acute respiratory failure and was transferred to the intensive care unit and patient placed on BiPAP, currently under care of Dr. Caballero. Patient subsequently intubated and placed on mechanical ventilation. Echocardiogram from yesterday reveals EF 55-60% with moderate concentric left ventricle hypertrophy, trace mitral regurgitation, trace tricuspid regurgitation, no pulmonary hypertension. No pericardial effusion. Chest x-ray shows new right basilar and pneumonic consolidation with diminished inspiration background right hilar and left basilar more patchy edema and or infiltrate felt present. Repeat chest x-ray shows new endotracheal tube with placement described with recommendations to pullback. Mild cardiomegaly and low lung volumes with bilateral hilar edema and/or infiltrate and right basilar consolidation all redemonstrated increasing left basilar infiltrate felt present. Abdomen was more distended and NG tube was placed. Immediate surgical consultation was requested by Dr. Caballero. Dr. Givens attempted bedside colonoscopy but patient was not properly prepped. He is scheduled for CAT scan of the abdomen and pelvis this afternoon at 2:30. NG tube is in place with bile color returned. Family members are in the waiting room and have been updated. 04/18: The patient remains in intensive care unit intubated and on mechanical ventilation. Vent settings have been decreased and no plan for sedation holiday today. He was weaned off norepinephrine this morning. Urine output has been 50-75 mL per hour. Noted that the Goldberg tube is pink but urine is alesia most likely a drug reaction. Patient has had several bowel movements this morning. Antibiotics have been switched to Zosyn and vancomycin. TSH 0.224 with normal free T4 at 1.24. Surgical consultation has been changed to Dr. Aranda per family wishes. 04/19: Patient remains in intensive care unit intubated and on mechanical ventilation. Patient has had increased purulent secretions and underwent reintubation by Dr. Caballero. He also perform bronchoscopy at the bedside and suction 20 ML's purulent material specimen was sent to the lab for cytology and culture. He is concern for ARDS. Patient is continued on Zosyn and vancomycin. He has been off vasopressors since yesterday morning. Patient has had a small amount of liquid stool today much decreased from yesterday. Dr. Aranda is on for surgery at this point. Patient is having minimal output from NG tube. Bowel sounds remain hypoactive. Consult has been added for GI regarding concern for ischemic colitis. 04/20: Patient remains intubated and on mechanical ventilation. Repeat chest x- ray shows continued mild to moderate heart failure. Small to moderate effusions with prominent bibasilar atelectasis and/or consolidation persists. Dr. Aranda is planning for bedside colonoscopy today. Patient was ordered for soapsuds enema last night and this morning. Tube feedings on hold. He has been afebrile, heart rate in the 50s and 60s, blood pressure 141/66. Pulse ox 99%. WBC 8.1, hemoglobin 11.2. Creatinine 0.65. Bronchial washing cytology is pending. Bronchial cultures in progress. Patient will need to start tube feedings or TPN depending on results of colonoscopy scheduled for this afternoon. Patient was given 1 dose of IV Lasix this morning and is diuresing well. Family in the waiting room have been updated. 04/21: Patient remains in the bed, FiO2 40%, PEEP of 6, NG tube has been placed and had taken out the OG tube, fecaloid billous contents are observed in the NG tube, bowel sounds are very diminished today, no bowel movements over the past 24 hours, x-rays of the abdomen will be done to evaluate for progressive bowel o bstruction, patient remains to be afebrile, no leukocytosis bronchial washing cultures shows no normal zander vital signs are stable no hypotensive events, patient is slightly hypotensive on IV Solu-Medrol 40 every 8 04/23: Patient remains intubated and on mechanical ventilation. Dr. Dunham does not plan for attempt at weaning today. He is started him on hydralazine for blood pressure control. Patient has been started on TPN. On Tuesday, patient underwent colonoscopy with Dr. Aranda that revealed reticulosis, tortuous colon and recommends once patient is off ventilation to have barium enema to evaluate the ileocecal valve. Keep NG tube post extubation and hold tube feedings for now. No bowel movement today. 04/24: Patient had a rough night became significantly hypertensive, tachypneic a nd tachycardic. Patient was started on labetalol drip once other options were attempted without success and this was weaned off this morning. Patient also was placed on Nimbex and fentanyl drip which are to be weaned off today. Chest x-ray shows worsening interstitial infiltrates bilaterally and possible interstitial edema. Dr. Dunham increase Lasix to 40 mg IV push every 12 hours. Patient has not had a bowel movement. He remains on TPN and NG tube to suction. Urine output is adequate, tea-colored. Discussed yesterday the possibility of needing a trach and PEG with family members. At this time, Dr. Dunham would like to hold off. 04/25: Patient is still sedated on mechanical ventilation he had failed his weaning parameter today I want to see him when the and the son were in the room door tachycardia with Dr. dao about further plan. Pulmonary and from medicine standpoint patient most likely will need to go to trach no PEG tube can be done for now expected the plan probably for Tuesday and from thereon if more stable can go for his barium enema to come with final diagnosis of the tumor or the finding in the cecum and the large intestine and from thereon further management can be planned. Patient still on multiple drips for pain management let pressure TPN and DT. 04/26: A Chin still on mechanical ventilation, sedated, he is slightly bit awaking when backing off on sedation is still very agitated between having quite bed elevated blood pressure and pulse rate did not succeed on weaning parameter and most likely he will need tracheostomy by tomorrow. PEG tube is negative be possible at this point because of the possibility of mass in the cecum with obstruction cankerous problem if he is more stable can go for barium enema and then PEG tube if there is no cecal mass likely his CEA came back negative. 04/27 patient examined bedside currently intubated D 10. Patient came in with abdominal pain, nausea, vomiting followed by a respiratory failure the next day leading to intubation. Patient is found to be agitated him on ventilator. Currently requiring 75 mics of propofol. On vital evaluation patient had a heart rate of 77 respiratory rate 26 blood pressure 159/62 on clear with pain drip abdominal x-ray this morning shows nonspecific bowel pattern with the bilateral pleural effusion chest x-ray suggestive of pulmonary edema versus consolidation. Patient is currently on Lasix 40 mg IV twice a day and making good urine output 75 mL per hour. Blood cultures so far negative. Bronchoscopy results are negative so far. Plan for tracheostomy placement today. PEG tube is on hold until further information about the cecal mass/colitis. 04/28: Examined at bedside currently on CPAP. Patient was on a sedation holiday for approximately 1 hour sedation has been increased due to fatigue and agitation. Vital signs have been stable blood pressure 151/60 pulse ox a 97% on CPAP pulse rate 98. Patient was able to follow commands however weak. Patient was able to nod head and answer actions appropriately. Family at the bedside discussing plan of care. Continue nutritional support with TPN. 04/29: Patient examined bedside currently on CPAP tolerating. Patient is more alert today compared to yesterday. Patient is able to follow commands movements are weak and nods head appropriately to questions. Patient is on propofol at 10 at this time. She was on a sedation holiday however heart rate and blood pressure increase. Urinary output approximately 60-70 ML's per hour. Patient has not had a bowel movement continues with NG suction approximately 600-700 ML's output in 24 hours. 04/30: Patient is sitting up in bed does appear in less distress today he continues to have the trach in place we're trying to the patient on the ventilator hopefully he will be on trach collar tomorrow morning, family were at the bedside and updated about his situation he will be weaned off sedation completely liver on today he does not appear to be in acute distress at this time, we will hold off transfer the patient until after he weaned off. 05/01: Patient is sitting up in bed he is more awake and more alert is moving all his extremities currently has a trach collar in place, he continued to follow commands appropriately, his family were at the bedside and updated about his current situation. 05/02: Patient is sitting up in bed he continues to have ended in place, he continues to have the trach collar in place, is moving all his extremities, he is feeling better today he has no abdominal pain, he has not passed any gas and he has not had a bowel movement. 05/03: Patient remains in the intensive care unit. He has undergone barium enema today which revealed limited single contrast barium enema. Limited distention of the left side of the colon. There is proximal to mid sigmoid diverticulosis. There he reaches the cecum and refluxes multiple distal ileal loops. There is subtle contour irregularity of the cecum and mucosal lesion or colitis here is difficult to exclude. No frankly constricting lesion is seen. Repeat chest x- ray reveals correlate for congestive heart failure, pneumonia not excluded. Patient has been continued on TPN. Patient has a trach collar place at 28%. He has been hemodynamically stable. Not requiring vasopressors. Temperature max 100.0. White count is 12.7, potassium 3.4, creatinine 0.61. Blood sugars running between 155 and 181. 05/04: Patient remains in intensive care unit. Patient pulled his NG tube out yesterday and Dr Aranda to reevaluate as he did fail swallow evaluation. Speech therapy will reevaluate today as well. Patient is scheduled for PICC line placement today for TPN and central line will then be removed. Abdomen is soft. He has had good urine output. His temperature max 101.2 axillary. He is on IV Tylenol. Patient has worked with PT and OT and up to a chair. He is extremely fatigued following this activity. Patient will have an extended recovery phase. Ativan will be changed to only at bedtime if needed and Toradol added for pain versus Dilaudid. 05/05: Patient has worsened overnight, persistent fevers now high temperature of 10-103, patient was given cooling blanket, patient was seen in ICU, pancultures were obtained, patient's diaphoretic, tachypneic, labored breathing, pulmonary has restarted him on vent support through trach collar, significant tachypnea,. I requested infectious disease to see him, Dr. Kennedy, secondary to decompensation new high gradefevers,, troponins were ordered, EKG to be done, Solu-Medrol 3 doses to be given, patient has palate shallow ulcerations doesn't look viral, right decubitus stage II pressure ulcers, no petechiae or other rash noted,patient is on TPN, no bowel movement since admission per nursing staff 05/06, patient's fever has subsided, cultures from sputum shows presumptive staph aureus, usually in Yeast species, catheter tip Pooja albicans, patient is less tachypneic and is much more comfortable not in distress, steroids has been completed 3 doses, and has some hyperglycemia, on insulin drip at 22-25 units an hour, NPH was given early this morning at 3:00 and will be started on Levemir tonight 8 units starting 3 PM daily, patient is receiving 150 g of glucose per day from TPN. Patient currently is on vancomycin and Zosyn and anidulfungin by Dr. Kennedy. Cardiology has seen the patient, rule out NH with elevated troponin, most likely secondary to severe sepsis 05/07: Patient remains in intensive care unit on mechanical ventilation. Patient has been changed to DO NOT RESUSCITATE over the weekend. Patient has NG tube and we'll start tube feedings and plan. TPN. He has not had a bowel movement since April 19. Insulin drip will be transitioned over to long-acting Levemir and NovoLog scale. 05/08: Patient remains in the intensive care unit, on mechanical ventilation. Patient is still having intermittent fevers. Family history and CODE STATUS back to full code. He is on tube feedings at 13 ML's per hour which is current with no plan to increase this. Abdomen is soft but no bowel sounds. No stool. He is ordered for Dulcolax suppository this morning. KUB will be ordered. P atient failed a sedation holiday today. Urine output has been adequate. Review Of Systems:unable secondary to sedation on vent compared to previous Objective - Vital Signs Vital signs: Vital Signs Temp 37.9 F L 05/08/19 08:00 Pulse 62 05/08/19 08:30 Resp 33 H 05/08/19 08:30 BP 105/62 05/08/19 08:30 Pulse Ox 93 L 05/08/19 07:30 Intake & Output 05/07/19 05/08/19 05/08/19 18:59 06:59 18:59 Intake Total 2145.428 1728.30 263.91 Output Total 911 780 200 Balance 1234.428 948.30 63.91 Weight 98 kg 102.9 kg Intake: IV 260 1050 60 ACETAMINOPHEN IV (For NPO 100 ) 1,000 mg In Empty Bag 1 bag @ 400 mls/hr IVPB Q6HR PRN Rx#:[id number] Piperacillin-Tazobactam 3 200 .375 gm In Sodium Chloride 0.9% 100 ml @ 25 mls/hr IVPB Q8H ELA Rx#: [id number] Sodium Chloride 0.9% 1, 160 350 60 000 ml @ 20 mls/hr IV . Q24H ELA Rx#:[id number] Vancomycin 2,000 mg In 500 Sodium Chloride 0.9% 500 ml 500 ml @ 167 mls/hr IVPB Q12H ELA Rx#: [id number] Intake, IV Titration 1777.428 432.30 177.91 Amount ACETAMINOPHEN IV (For NPO 100 ) 1,000 mg In Empty Bag 1 bag @ 400 mls/hr IVPB Q6HR PRN Rx#:[id number] Anidulafungin 100 mg In 84 100 Sodium Chloride 0.9% 100 ml @ 84 mls/hr IVPB DAILY ELA Rx#:[id number] Insulin Regular 100 unit 1.852 In Sodium Chloride 0.9% 100 ml @ Per Protocol IV .Q0M ELA Rx#:[id number] Insulin Regular 100 unit 1.465 In Sodium Chloride 0.9% 100 ml @ Per Protocol IV .Q0M ELA Rx#:[id number] Mvi, Adult No.4 with Vit 132 K 10 ml Trace (Conc-1Ml/ Dose) 1 ml Sodium Acetate 20 meq Potassium Phosphate 20 mmol In Amino Acid 5%-D15w 1,000 ml @ 44 mls/hr IV . [id number] ELA Rx#:[id number] Propofol 1,000 mg In 458.111 432.30 77.91 Empty Bag 1 bag @ Titrate IV .Q0M ELA Rx#: [id number] Sodium Phosphate 10 mmol 500 In Sodium Chloride 0.9% 250 ml @ 125 mls/hr IVPB Q2H ELA Rx#:[id number] Vancomycin 2,000 mg In 500 Sodium Chloride 0.9% 500 ml 500 ml @ 167 mls/hr IVPB Q12H ELA Rx#: [id number] Tube Feeding 78 156 26 Other 30 90 Output: Urine 911 780 200 Other: Voiding Method Indwelling Catheter Indwelling Catheter ABP, PAP, CO, CI - Last Documented Arterial Blood Pressure 102/102 - Exam - Exam sedated on vent, trach collar, tachypneic and labored breathing, intermittent fevers - EENT Eyes: Present: anicteric sclerae - Neck Neck: Present: normal ROM - Respiratory Respiratory: bilateral: diminished, rhonchi, upper airway inspiratory stridor negative: dullness - Cardiovascular Rhythm: regular Heart sounds: normal: S1, S2 - Gastrointestinal General gastrointestinal: Present: decreased bowel sounds, soft - Integumentary Integumentary: Present: decreased turgor, normal, trace I lateral pedal edema - Psychiatric Psychiatric: Present: no A&O x's 3 - Labs CBC & Chem 7: 05/08/19 04:08 05/08/19 04:08 Labs: Abnormal Lab Results - Last 24 Hours (Table) 05/07/19 05/07/19 05/07/19 Range/Units 10:59 11:58 13:02 RBC (4.30-5.90) m/uL Hgb (13.0-17.5) gm/dL Hct (39.0-53.0) % Plt Count (150-450) k/uL ABG pO2 (83-108) mmHg ABG O2 Saturation (94-97) % Chloride (98-107) mmol/L Carbon Dioxide (22-30) mmol/L BUN (9-20) mg/dL Creatinine (0.66-1.25) mg/dL Glucose (74-99) mg/dL POC Glucose (mg/dL) 157 H 141 H 149 H (75-99) mg/dL 05/07/19 05/07/19 05/07/19 Range/Units 17:21 20:17 21:43 RBC (4.30-5.90) m/uL Hgb (13.0-17.5) gm/dL Hct (39.0-53.0) % Plt Count (150-450) k/uL ABG pO2 (83-108) mmHg ABG O2 Saturation (94-97) % Chloride (98-107) mmol/L Carbon Dioxide (22-30) mmol/L BUN (9-20) mg/dL Creatinine (0.66-1.25) mg/dL Glucose (74-99) mg/dL POC Glucose (mg/dL) 119 H 140 H 166 H (75-99) mg/dL 05/07/19 05/08/19 05/08/19 Range/Units 23:37 04:02 04:08 RBC 3.88 L (4.30-5.90) m/uL Hgb 11.9 L (13.0-17.5) gm/dL Hct 38.4 L (39.0-53.0) % Plt Count 144 L (150-450) k/uL ABG pO2 120 H (83-108) mmHg ABG O2 Saturation 98.2 H (94-97) % Chloride (98-107) mmol/L Carbon Dioxide (22-30) mmol/L BUN (9-20) mg/dL Creatinine (0.66-1.25) mg/dL Glucose (74-99) mg/dL POC Glucose (mg/dL) 142 H (75-99) mg/dL 05/08/19 05/08/19 Range/Units 04:08 05:46 RBC (4.30-5.90) m/uL Hgb (13.0-17.5) gm/dL Hct (39.0-53.0) % Plt Count (150-450) k/uL ABG pO2 (83-108) mmHg ABG O2 Saturation (94-97) % Chloride 119 H (98-107) mmol/L Carbon Dioxide 17 L (22-30) mmol/L BUN 29 H (9-20) mg/dL Creatinine 0.55 L (0.66-1.25) mg/dL Glucose 130 H (74-99) mg/dL POC Glucose (mg/dL) 138 H (75-99) mg/dL Microbiology - Last 24 Hours (Table) 04/19/19 09:28 Acid Fast Bacilli Smear - Final Bronchoalviolar Lavage - Left Acid Fast Bacilli Culture - Preliminary 04/19/19 09:28 Fungal Culture - Preliminary Bronchoalviolar Lavage - Left 05/04/19 23:10 Urine Culture - Final Urine,Catheterized Pooja albicans 05/05/19 00:50 Gram Stain - Final Sputum Sputum Culture - Final Staphylococcus aureus Assessment and Plan Plan: 1. Abdominal pain, possible colitis, possible malignancy of the cecum, neither have been ruled out but CEA is less than 0.5.. Dr. Aranda following general surgery, patient still has no bowel movement since admission. Continue IV fluids, continue Zosyn and Eraxis. Barium study as above. Toradol added for pain. Dulcolax suppository. Abdominal x-ray. 2. Acute vent dependent respiratory failure with aspiration pneumonia, vent placement 05/04/2019 second episode 3. Severe sepsis secondary to staph species sputum culture, bacteremia with Pooja albicans, arising from multifocal pneumonia. Continue Zosyn and Eraxis. 4. ARDS secondary to multifocal pneumonia, patient's on Zosyn, infectious disease consulted for closer monitoring, sputum cultures has been sent 5. Acute hypoxic and hypercapnic respiratory failure with bilateral pulmonary infiltrates and masslike consolidation in the right lower lobe most likely secondary to massive aspiration pneumonia initial episode, acute respiratory distress syndrome. Patient is status post bronchoscopy. Patient is status post trach. 6. Mild COPD exacerbation. Continue DuoNeb treatments every 4 hours as needed. Patient was given 3 doses of steroids 7. Diabetes mellitus type 2, insulin requiring, uncontrolled with hyp erglycemia. Metformin on hold. NovoLog scale before meals and at bedtime. NovoLog scale currently on insulin drip, 05/06/2019, Lantus added at 8 units daily, we would titrate, currently off Solu-Medrol 8. Generalized anxiety disorder. Citalopram 40 mg daily on hold. 9. Abdominal distention secondary to ileus. NG tube was pulled by accident. Consult with Dr. Aranda . 10. Obstructive sleep apnea noncompliant with CPAP. 11. Blood culture with coag-negative staph, contamination. 12. Delirium tremens, resolved. 13. Severe protein calorie malnutrition. Continue TPN. PICC line . Central line to be discontinued. 14. Sepsis, high-grade fevers noted, pending cultures has been obtained sputum urine and catheter tipfrom 05/04/2019. Consult with Dr. Kennedy 15 Hypertension with episode of accelerated hypertension. Continue hydralazine, Vasotec as needed 16. Severe protein calorie malnutrition. On tube feedings.: 13 mL's per hour Gastroesophageal reflux disease and GI prophylaxis. Continue Protonix. DVT prophylaxis. Heparin subcu. prognosis guarded, critically ill Discharge plan: To be determined. Impression and plan of care have been directed as dictated by the signing physician. Destini Navarro nurse practitioner acting as scribe for signing physician.
[2019-05-08] MEDS: SODIUM CHLORIDE 0.9% 1,000 ML IV SCH (14:50)
[2019-05-08 17:18] LABS: Glucose,Whole Blood 121 mg/dL (75-99)
[2019-05-08] MEDS: INSULIN DETEMIR (LEVEMIR) 100 UNIT/ML SYR SQ SCH (21:25)
[2019-05-08 21:38] LABS: Glucose,Whole Blood 134 mg/dL (75-99)
[2019-05-08 23:29] LABS: Glucose,Whole Blood 137 mg/dL (75-99)
[2019-05-09] MEDS: IPRATROPIUM-ALBUTEROL 3 ML NEB INHALATION SCH ×7 (00:01→23:12)
[2019-05-09] MEDS: HYDROmorphone 0.5 MG/0.5 ML SYRINGE IVP PRN ×4 (02:25→23:07)
[2019-05-09] MEDS: PROPOFOL 1,000 MG in EMPTY BAG 1 BAG IV SCH ×9 (03:46→23:07)
[2019-05-09] MEDS: VANCOMYCIN 2,000 MG in SODIUM CHLORIDE 0.9% 500 ML 500 ML IVPB SCH ×2 (03:46→16:21)
[2019-05-09] MEDS: PIPERACILLIN-TAZOBACTAM 3.375 GM in SODIUM CHLORIDE 0.9% 100 ML IVPB SCH ×3 (03:47→19:51)
[2019-05-09] MEDS: ARTIFICIAL TEARS-HYPROMELLOSE DROPS 15 ML BTL BOTH EYES SCH ×5 (03:47→19:53)
[2019-05-09 04:00] LABS: ABG Base Excess -2.8 mmol/L; ABG HCO3 21 mmol/L (21-25); ABG Oxygen Saturation 96.6 % (94-97); ABG PCO2 35 mmHg (35-45); ABG PO2 96 mmHg (83-108); Allen Test Performed? Yes
[2019-05-09 05:52] LABS: Glucose,Whole Blood 139 mg/dL (75-99)
[2019-05-09] MEDS: INSULIN ASPART (NovoLOG) 100 UNIT/ML VIAL SQ SCH ×3 (06:03→17:15)
[2019-05-09 06:07] LABS: Basophils % (A) 0 %; Eosinophils # (A) 0.5 k/uL (0-0.7); Eosinophils % (A) 5 %; HCT 37.6 % (39.0-53.0); HGB 11.8 gm/dL (13.0-17.5); Hypochromasia Slight; Lymphocytes % (A) 9 %; MCH 30.1 pg (25.0-35.0); MCHC 31.5 g/dL (31.0-37.0); MCV 95.7 fL (80.0-100.0); Mean Platelet Volume 8.6; Monocytes # (A) 0.4 k/uL (0-1.0); Monocytes % (A) 4 %; Neutrophils # (A) 8.6 k/uL (1.3-7.7); Neutrophils % (A) 80 %; Platelet Count 174 k/uL (150-450); RBC 3.93 m/uL (4.30-5.90); RDW 14.3 % (11.5-15.5); WBC 10.7 k/uL (3.8-10.6)
[2019-05-09] MEDS: IBUPROFEN ORAL SUSP 100 MG/5 ML CUP PO PRN ×2 (06:11→15:27)
[2019-05-09 06:20] LABS: African American GFR (CKD) >90 (>60 ml/min/1.73 sqM); Anion Gap 10 mmol/L; Blood Urea Nitrogen 21 mg/dL (9-20); Calcium 9.8 mg/dL (8.4-10.2); Carbon Dioxide 19 mmol/L (22-30); Chloride 117 mmol/L (98-107); Glucose 136 mg/dL (74-99); Magnesium 2.1 mg/dL (1.6-2.3); Phosphorus 4.8 mg/dL (2.5-4.5); Sodium 146 mmol/L (137-145)
[2019-05-09 06:22] LABS: Potassium 4.2 mmol/L (3.5-5.1)
[2019-05-09] MEDS: HEPARIN SODIUM,PORCINE 5,000 UNIT/ML 1 ML VIAL SQ SCH ×2 (08:20→19:52)
[2019-05-09] MEDS: PANTOPRAZOLE 40 MG/10 ML VIAL IV SCH (08:20)
[2019-05-09] MEDS: BISACODYL 10 MG SUPP RECTAL SCH (08:26)
--- NOTE | 2019-05-09 08:26 | XR ---
EXAMINATION TYPE: XR chest 1V portable DATE OF EXAM: 05/09/2019 COMPARISON: 05/08/2019 HISTORY: Shortness of breath FINDINGS: There are bilateral pleural effusions with cardiomegaly and bibasilar infiltrate. There is a diffuse interstitial pattern. Tracheostomy tube, PICC line and NG tube stable. IMPRESSION: 1. Stable diffuse lung disease compatible with CHF versus diffuse pneumonia.
[2019-05-09] MEDS: CHLORHEXIDINE GLUCONATE 15 ML CUP MUCOUS MEM SCH ×2 (08:32→19:52)
--- NOTE | 2019-05-09 11:13 | XR ---
EXAMINATION TYPE: XR chest 1V portable DATE OF EXAM: 05/09/2019 COMPARISON: 05/09/2019 HISTORY: Shortness of breath FINDINGS: There are bilateral pleural effusions with cardiomegaly and bibasilar infiltrate. There is a diffuse interstitial pattern. Tracheostomy tube and PICC line stable. There is a feeding tube seen extending in the left upper quadrant of the abdomen. Atherosclerotic change aorta. IMPRESSION: 1. Diffuse lung disease stable. Feeding tube is seen extending in the left upper quadrant of the abdo men.
--- NOTE | 2019-05-09 11:47 | P.PN ---
<JaimesGabriela Himanshu - Last Filed: 05/09/19 11:40> Subjective Progress Note Date: 05/09/19 CHIEF COMPLAINT: Abdominal pain HISTORY OF PRESENT ILLNESS: Patient remains in the ICU. He is on mechanical ventilation. Tube feeding infusing at 13cc/hr, which is goal secondary to propofol, and tolerating well. Patient did have a small bowel movement with some mucus. PHYSICAL EXAM: VITAL SIGNS: Reviewed. GENERAL: Well-developed sedated on mechanical ventilation. HEENT: Trach site without bleeding or signs of infection. No sclera icterus. Extraocular movements grossly intact. Moist buccal mucosa. Head is atraumatic, normocephalic. Neck supple without lymphadenopathy. CHEST: Non-labored respirations and equal bilateral excursions on mechanical ventilation CARDIOVASCULAR: Regular rate with regular rhythm. Palpable 2+ radial pulses. ABDOMEN: Soft. Nondistended. Positive bowel sounds. MUSCULOSKELETAL: No clubbing or cyanosis. No gross deformity of extremities. NEUROLOGIC: No focal or lateralizing signs. PSYCH: Sedated on mechanical ventilation. SKIN: Well perfused. Good skin turgor. ASSESSMENT: 1. Abdominal pain 2. Marked wall thickening of cecum, possible malignancy versus nonspecific colitis PLAN: Trach management per Dr. Caballero Nursing reports possible Dobbhoff catheter for tube feedings. Agreeable to Dobbhoff Continue antibiotics. Infectious disease following. Continue daily Dulcolax suppository. Reglan added per medicine Nurse practitioner note has been reviewed by physician. Signing provider agrees with the documented findings, assessment, and plan of care. Objective - Vital Signs Vital signs: Vital Signs Temp 98.9 F 05/09/19 08:00 Pulse 66 05/09/19 11:30 Resp 29 H 05/09/19 11:30 BP 132/71 05/09/19 11:30 Pulse Ox 97 05/09/19 11:30 Intake & Output 05/08/19 05/09/19 05/09/19 18:59 06:59 18:59 Intake Total 2461.371 7045.079 293.363 Output Total 1070 1135 350 Balance 505.735 530.079 -56.637 Weight 105.5 kg 105.5 kg Intake: IV 990 1060 80 Piperacillin-Tazobactam 3 100 200 .375 gm In Sodium Chloride 0.9% 100 ml @ 25 mls/hr IVPB Q8H ELA Rx#: [id number] Sodium Chloride 0.9% 1, 390 360 80 000 ml @ 20 mls/hr IV . Q24H ELA Rx#:[id number] Vancomycin 2,000 mg In 500 500 Sodium Chloride 0.9% 500 ml 500 ml @ 167 mls/hr IVPB Q12H ELA Rx#: [id number] Intake, IV Titration 494.735 389.079 131.363 Amount Anidulafungin 100 mg In 100 Sodium Chloride 0.9% 100 ml @ 84 mls/hr IVPB DAILY ELA Rx#:[id number] Propofol 1,000 mg In 394.735 389.079 131.363 Empty Bag 1 bag @ Titrate IV .Q0M ELA Rx#: [id number] Tube Feeding 91 156 52 Other 60 30 Output: Urine 1070 1135 350 Other: Voiding Method Indwelling Catheter Indwelling Catheter # Bowel Movements 1 ABP, PAP, CO, CI - Last Documented Arterial Blood Pressure 102/102 - Labs CBC & Chem 7: 05/09/19 05:43 05/09/19 05:43 Labs: Abnormal Lab Results - Last 24 Hours (Table) 05/08/19 05/08/19 05/08/19 Range/Units 11:47 17:15 21:25 WBC (3.8-10.6) k/uL RBC (4.30-5.90) m/uL Hgb (13.0-17.5) gm/dL Hct (39.0-53.0) % Neutrophils # (1.3-7.7) k/uL Sodium (137-145) mmol/L Chloride (98-107) mmol/L Carbon Dioxide (22-30) mmol/L BUN (9-20) mg/dL Creatinine (0.66-1.25) mg/dL Glucose (74-99) mg/dL POC Glucose (mg/dL) 131 H 121 H 134 H (75-99) mg/dL Phosphorus (2.5-4.5) mg/dL 05/08/19 05/09/19 05/09/19 Range/Units 23:26 05:39 05:43 WBC 10.7 H (3.8-10.6) k/uL RBC 3.93 L (4.30-5.90) m/uL Hgb 11.8 L (13.0-17.5) gm/dL Hct 37.6 L (39.0-53.0) % Neutrophils # 8.6 H (1.3-7.7) k/uL Sodium (137-145) mmol/L Chloride (98-107) mmol/L Carbon Dioxide (22-30) mmol/L BUN (9-20) mg/dL Creatinine (0.66-1.25) mg/dL Glucose (74-99) mg/dL POC Glucose (mg/dL) 137 H 139 H (75-99) mg/dL Phosphorus (2.5-4.5) mg/dL 05/09/19 Range/Units 05:43 WBC (3.8-10.6) k/uL RBC (4.30-5.90) m/uL Hgb (13.0-17.5) gm/dL Hct (39.0-53.0) % Neutrophils # (1.3-7.7) k/uL Sodium 146 H (137-145) mmol/L Chloride 117 H (98-107) mmol/L Carbon Dioxide 19 L (22-30) mmol/L BUN 21 H (9-20) mg/dL Creatinine 0.53 L (0.66-1.25) mg/dL Glucose 136 H (74-99) mg/dL POC Glucose (mg/dL) (75-99) mg/dL Phosphorus 4.8 H (2.5-4.5) mg/dL Microbiology - Last 24 Hours (Table) 05/08/19 11:37 Blood Fungal Culture - Preliminary Blood 05/04/19 22:35 Blood Culture Gram Stain - Final Blood Blood Culture - Final Pooja albicans Assessment and Plan (1) Abdominal pain Current Visit: Yes Status: Acute Code(s): R10.9 - UNSPECIFIED ABDOMINAL PAIN SNOMED Code(s): 20758388 (2) Leukocytosis Current Visit: Yes Status: Acute Code(s): D72.829 - ELEVATED WHITE BLOOD CELL COUNT, UNSPECIFIED SNOMED Code(s): 968217011 (3) Respiratory failure Current Visit: Yes Status: Acute Code(s): J96.90 - RESPIRATORY FAILURE, UNSP, UNSP W HYPOXIA OR HYPERCAPNIA SNOMED Code(s): 832347432 (4) Status post tracheostomy Current Visit: Yes Status: Acute Code(s): Z93.0 - TRACHEOSTOMY STATUS SNOMED Code(s): 750191418 <Azam Aranda - Last Filed: 05/09/19 12:04> Subjective As above. Patient unfortunately has had evidence of systemic infection. No abdominal bloating or tenderness noted however. Abdominal x-rays without evidence of obstruction. Tolerating tube feeds currently at goal. Continue tube feeds for now. Will follow. Objective - Vital Signs Vital signs: Vital Signs Temp 98.9 F 05/09/19 08:00 Pulse 66 05/09/19 11:30 Resp 29 H 05/09/19 11:30 BP 132/71 05/09/19 11:30 Pulse Ox 97 05/09/19 11:30 Intake & Output 05/08/19 05/09/19 05/09/19 18:59 06:59 18:59 Intake Total 5319.105 5555.079 293.363 Output Total 1070 1135 350 Balance 505.735 530.079 -56.637 Weight 105.5 kg 105.5 kg Intake: IV 990 1060 80 Piperacillin-Tazobactam 3 100 200 .375 gm In Sodium Chloride 0.9% 100 ml @ 25 mls/hr IVPB Q8H ELA Rx#: [id number] Sodium Chloride 0.9% 1, 390 360 80 000 ml @ 20 mls/hr IV . Q24H ELA Rx#:[id number] Vancomycin 2,000 mg In 500 500 Sodium Chloride 0.9% 500 ml 500 ml @ 167 mls/hr IVPB Q12H ELA Rx#: [id number] Intake, IV Titration 494.735 389.079 131.363 Amount Anidulafungin 100 mg In 100 Sodium Chloride 0.9% 100 ml @ 84 mls/hr IVPB DAILY ELA Rx#:[id number] Propofol 1,000 mg In 394.735 389.079 131.363 Empty Bag 1 bag @ Titrate IV .Q0M ELA Rx#: [id number] Tube Feeding 91 156 52 Other 60 30 Output: Urine 1070 1135 350 Other: Voiding Method Indwelling Catheter Indwelling Catheter Indwelling Catheter # Bowel Movements 1 ABP, PAP, CO, CI - Last Documented Arterial Blood Pressure 102/102 - Labs CBC & Chem 7: 05/09/19 05:43 07/03/19 05:43 Labs: Abnormal Lab Results - Last 24 Hours (Table) 05/08/19 05/08/19 05/08/19 Range/Units 17:15 21:25 23:26 WBC (3.8-10.6) k/uL RBC (4.30-5.90) m/uL Hgb (13.0-17.5) gm/dL Hct (39.0-53.0) % Neutrophils # (1.3-7.7) k/uL Sodium (137-145) mmol/L Chloride (98-107) mmol/L Carbon Dioxide (22-30) mmol/L BUN (9-20) mg/dL Creatinine (0.66-1.25) mg/dL Glucose (74-99) mg/dL POC Glucose (mg/dL) 121 H 134 H 137 H (75-99) mg/dL Phosphorus (2.5-4.5) mg/dL 05/09/19 05/09/19 05/09/19 Range/Units 05:39 05:43 05:43 WBC 10.7 H (3.8-10.6) k/uL RBC 3.93 L (4.30-5.90) m/uL Hgb 11.8 L (13.0-17.5) gm/dL Hct 37.6 L (39.0-53.0) % Neutrophils # 8.6 H (1.3-7.7) k/uL Sodium 146 H (137-145) mmol/L Chloride 117 H (98-107) mmol/L Carbon Dioxide 19 L (22-30) mmol/L BUN 21 H (9-20) mg/dL Creatinine 0.53 L (0.66-1.25) mg/dL Glucose 136 H (74-99) mg/dL POC Glucose (mg/dL) 139 H (75-99) mg/dL Phosphorus 4.8 H (2.5-4.5) mg/dL Microbiology - Last 24 Hours (Table) 05/08/19 11:37 Blood Fungal Culture - Preliminary Blood 05/04/19 22:35 Blood Culture Gram Stain - Final Blood Blood Culture - Final Pooja albicans Assessment and Plan (1) Colitis Current Visit: Yes Status: Acute Code(s): K52.9 - NONINFECTIVE GASTROENTERITIS AND COLITIS, UNSPECIFIED SNOMED Code(s): 90079651
[2019-05-09 12:43] LABS: Glucose,Whole Blood 117 mg/dL (75-99)
[2019-05-09] MEDS: METOCLOPRAMIDE 5 MG/ML 2 ML VIAL IVP SCH ×2 (13:01→19:44)
[2019-05-09] MEDS: ANIDULAFUNGIN 100 MG in SODIUM CHLORIDE 0.9% 100 ML IVPB SCH (13:04)
--- NOTE | 2019-05-09 14:03 | P.PN ---
Subjective Progress Note Date: 05/09/19 This is a 69-year-old male patient of Dr. Gallardo with past medical history of hypertension, hyperlipidemia, COPD, gastroesophageal reflux disease, remote history of tobacco use, obstructive sleep apnea not using CPAP. Patient complains of sudden onset of abdominal pain starting on Tuesday. He also complains of bloating in the abdomen for the past couple months as well as weight loss of 5-10 pounds over the past 3 months. He complains of decreased appetite. He states he has had occasional burgundy stools. He denies any black stools, no diarrhea, no vomiting. He denies any urinary symptoms. Patient states he had his last colonoscopy in 2013 which was normal. Patient presents to [facility] emergency center for evaluation. Abdominal x-ray shows no acute findings. CAT scan of the abdomen and pelvis showed marked thickening of the cecum concerning for malignancy. A nonspecific colitis is not excluded but felt to be less likely. Thickening in the gastric rugae which may be secondary to under distention versus a nonspecific gastritis. EKG is a sinus tachycardia with right bundle branch block, left AFB. WBC 16.7, hemoglobin 14.7, creatinine 0.74. Troponin negative. Amylase and lipase, liver function tests all normal. Urinalysis was clear with 1+ protein. Patient was admitted to the [facility] floor, consult with Dr. Givens, IV fluids, pain medications and Zofran. Plan is for colonoscopy tomorrow. 04/17: Overnight, patient developed acute respiratory failure and was transferred to the intensive care unit and patient placed on BiPAP, currently under care of Dr. Caballero. Patient subsequently intubated and placed on mechanical ventilation. Echocardiogram from yesterday reveals EF 55-60% with moderate concentric left ventricle hypertrophy, trace mitral regurgitation, trace tricuspid regurgitation, no pulmonary hypertension. No pericardial effusion. Chest x-ray shows new right basilar and pneumonic consolidation with diminished inspiration background right hilar and left basilar more patchy edema and or infiltrate felt present. Repeat chest x-ray shows new endotracheal tube with placement described with recommendations to pullback. Mild cardiomegaly and low lung volumes with bilateral hilar edema and/or infiltrate and right basilar consolidation all redemonstrated increasing left basilar infiltrate felt present. Abdomen was more distended and NG tube was placed. Immediate surgical consultation was requested by Dr. Caballero. Dr. Givens attempted bedside colonoscopy but patient was not properly prepped. He is scheduled for CAT scan of the abdomen and pelvis this afternoon at 2:30. NG tube is in place with bile color returned. Family members are in the waiting room and have been updated. 04/18: The patient remains in intensive care unit intubated and on mechanical ventilation. Vent settings have been decreased and no plan for sedation holiday today. He was weaned off norepinephrine this morning. Urine output has been 50-75 mL per hour. Noted that the Goldberg tube is pink but urine is alesia most likely a drug reaction. Patient has had several bowel movements this morning. Antibiotics have been switched to Zosyn and vancomycin. TSH 0.224 with normal free T4 at 1.24. Surgical consultation has been changed to Dr. Aranda per family wishes. 04/19: Patient remains in intensive care unit intubated and on mechanical ventilation. Patient has had increased purulent secretions and underwent reintubation by Dr. Caballero. He also perform bronchoscopy at the bedside and suction 20 ML's purulent material specimen was sent to the lab for cytology and culture. He is concern for ARDS. Patient is continued on Zosyn and vancomycin. He has been off vasopressors since yesterday morning. Patient has had a small amount of liquid stool today much decreased from yesterday. Dr. Aranda is on for surgery at this point. Patient is having minimal output from NG tube. Bowel sounds remain hypoactive. Consult has been added for GI regarding concern for ischemic colitis. 04/20: Patient remains intubated and on mechanical ventilation. Repeat chest x- ray shows continued mild to moderate heart failure. Small to moderate effusions with prominent bibasilar atelectasis and/or consolidation persists. Dr. Aranda is planning for bedside colonoscopy today. Patient was ordered for soapsuds enema last night and this morning. Tube feedings on hold. He has been afebrile, heart rate in the 50s and 60s, blood pressure 141/66. Pulse ox 99%. WBC 8.1, hemoglobin 11.2. Creatinine 0.65. Bronchial washing cytology is pending. Bronchial cultures in progress. Patient will need to start tube feedings or TPN depending on results of colonoscopy scheduled for this afternoon. Patient was given 1 dose of IV Lasix this morning and is diuresing well. Family in the waiting room have been updated. 04/21: Patient remains in the bed, FiO2 40%, PEEP of 6, NG tube has been placed and had taken out the OG tube, fecaloid billous contents are observed in the NG tube, bowel sounds are very diminished today, no bowel movements over the past 24 hours, x-rays of the abdomen will be done to evaluate for progressive bowel o bstruction, patient remains to be afebrile, no leukocytosis bronchial washing cultures shows no normal zander vital signs are stable no hypotensive events, patient is slightly hypotensive on IV Solu-Medrol 40 every 8 04/23: Patient remains intubated and on mechanical ventilation. Dr. Dunham does not plan for attempt at weaning today. He is started him on hydralazine for blood pressure control. Patient has been started on TPN. On Tuesday, patient underwent colonoscopy with Dr. Aranda that revealed reticulosis, tortuous colon and recommends once patient is off ventilation to have barium enema to evaluate the ileocecal valve. Keep NG tube post extubation and hold tube feedings for now. No bowel movement today. 04/24: Patient had a rough night became significantly hypertensive, tachypneic a nd tachycardic. Patient was started on labetalol drip once other options were attempted without success and this was weaned off this morning. Patient also was placed on Nimbex and fentanyl drip which are to be weaned off today. Chest x-ray shows worsening interstitial infiltrates bilaterally and possible interstitial edema. Dr. Dunham increase Lasix to 40 mg IV push every 12 hours. Patient has not had a bowel movement. He remains on TPN and NG tube to suction. Urine output is adequate, tea-colored. Discussed yesterday the possibility of needing a trach and PEG with family members. At this time, Dr. Dunham would like to hold off. 04/25: Patient is still sedated on mechanical ventilation he had failed his weaning parameter today I want to see him when the and the son were in the room door tachycardia with Dr. dao about further plan. Pulmonary and from medicine standpoint patient most likely will need to go to trach no PEG tube can be done for now expected the plan probably for Tuesday and from thereon if more stable can go for his barium enema to come with final diagnosis of the tumor or the finding in the cecum and the large intestine and from thereon further management can be planned. Patient still on multiple drips for pain management let pressure TPN and DT. 04/26: A Chin still on mechanical ventilation, sedated, he is slightly bit awaking when backing off on sedation is still very agitated between having quite bed elevated blood pressure and pulse rate did not succeed on weaning parameter and most likely he will need tracheostomy by tomorrow. PEG tube is negative be possible at this point because of the possibility of mass in the cecum with obstruction cankerous problem if he is more stable can go for barium enema and then PEG tube if there is no cecal mass likely his CEA came back negative. 04/27 patient examined bedside currently intubated D 10. Patient came in with abdominal pain, nausea, vomiting followed by a respiratory failure the next day leading to intubation. Patient is found to be agitated him on ventilator. Currently requiring 75 mics of propofol. On vital evaluation patient had a heart rate of 77 respiratory rate 26 blood pressure 159/62 on clear with pain drip abdominal x-ray this morning shows nonspecific bowel pattern with the bilateral pleural effusion chest x-ray suggestive of pulmonary edema versus consolidation. Patient is currently on Lasix 40 mg IV twice a day and making good urine output 75 mL per hour. Blood cultures so far negative. Bronchoscopy results are negative so far. Plan for tracheostomy placement today. PEG tube is on hold until further information about the cecal mass/colitis. 04/28: Examined at bedside currently on CPAP. Patient was on a sedation holiday for approximately 1 hour sedation has been increased due to fatigue and agitation. Vital signs have been stable blood pressure 151/60 pulse ox a 97% on CPAP pulse rate 98. Patient was able to follow commands however weak. Patient was able to nod head and answer actions appropriately. Family at the bedside discussing plan of care. Continue nutritional support with TPN. 04/29: Patient examined bedside currently on CPAP tolerating. Patient is more alert today compared to yesterday. Patient is able to follow commands movements are weak and nods head appropriately to questions. Patient is on propofol at 10 at this time. She was on a sedation holiday however heart rate and blood pressure increase. Urinary output approximately 60-70 ML's per hour. Patient has not had a bowel movement continues with NG suction approximately 600-700 ML's output in 24 hours. 04/30: Patient is sitting up in bed does appear in less distress today he continues to have the trach in place we're trying to the patient on the ventilator hopefully he will be on trach collar tomorrow morning, family were at the bedside and updated about his situation he will be weaned off sedation completely liver on today he does not appear to be in acute distress at this time, we will hold off transfer the patient until after he weaned off. 05/01: Patient is sitting up in bed he is more awake and more alert is moving all his extremities currently has a trach collar in place, he continued to follow commands appropriately, his family were at the bedside and updated about his current situation. 05/02: Patient is sitting up in bed he continues to have ended in place, he continues to have the trach collar in place, is moving all his extremities, he is feeling better today he has no abdominal pain, he has not passed any gas and he has not had a bowel movement. 05/03: Patient remains in the intensive care unit. He has undergone barium enema today which revealed limited single contrast barium enema. Limited distention of the left side of the colon. There is proximal to mid sigmoid diverticulosis. There he reaches the cecum and refluxes multiple distal ileal loops. There is subtle contour irregularity of the cecum and mucosal lesion or colitis here is difficult to exclude. No frankly constricting lesion is seen. Repeat chest x- ray reveals correlate for congestive heart failure, pneumonia not excluded. Patient has been continued on TPN. Patient has a trach collar place at 28%. He has been hemodynamically stable. Not requiring vasopressors. Temperature max 100.0. White count is 12.7, potassium 3.4, creatinine 0.61. Blood sugars running between 155 and 181. 05/04: Patient remains in intensive care unit. Patient pulled his NG tube out yesterday and Dr Aranda to reevaluate as he did fail swallow evaluation. Speech therapy will reevaluate today as well. Patient is scheduled for PICC line placement today for TPN and central line will then be removed. Abdomen is soft. He has had good urine output. His temperature max 101.2 axillary. He is on IV Tylenol. Patient has worked with PT and OT and up to a chair. He is extremely fatigued following this activity. Patient will have an extended recovery phase. Ativan will be changed to only at bedtime if needed and Toradol added for pain versus Dilaudid. 05/05: Patient has worsened overnight, persistent fevers now high temperature of 10-103, patient was given cooling blanket, patient was seen in ICU, pancultures were obtained, patient's diaphoretic, tachypneic, labored breathing, pulmonary has restarted him on vent support through trach collar, significant tachypnea,. I requested infectious disease to see him, Dr. Kennedy, secondary to decompensation new high gradefevers,, troponins were ordered, EKG to be done, Solu-Medrol 3 doses to be given, patient has palate shallow ulcerations doesn't look viral, right decubitus stage II pressure ulcers, no petechiae or other rash noted,patient is on TPN, no bowel movement since admission per nursing staff 05/06, patient's fever has subsided, cultures from sputum shows presumptive staph aureus, usually in Yeast species, catheter tip Pooja albicans, patient is less tachypneic and is much more comfortable not in distress, steroids has been completed 3 doses, and has some hyperglycemia, on insulin drip at 22-25 units an hour, NPH was given early this morning at 3:00 and will be started on Levemir tonight 8 units starting 3 PM daily, patient is receiving 150 g of glucose per day from TPN. Patient currently is on vancomycin and Zosyn and anidulfungin by Dr. Kennedy. Cardiology has seen the patient, rule out ME with elevated troponin, most likely secondary to severe sepsis 05/07: Patient remains in intensive care unit on mechanical ventilation. Patient has been changed to DO NOT RESUSCITATE over the weekend. Patient has NG tube and we'll start tube feedings and plan. TPN. He has not had a bowel movement since April 19. Insulin drip will be transitioned over to long-acting Levemir and NovoLog scale. 05/08: Patient remains in the intensive care unit, on mechanical ventilation. Patient is still having intermittent fevers. Family history and CODE STATUS back to full code. He is on tube feedings at 13 ML's per hour which is current with no plan to increase this. Abdomen is soft but no bowel sounds. No stool. He is ordered for Dulcolax suppository this morning. KUB will be ordered. P atient failed a sedation holiday today. Urine output has been adequate. 05/09: Chest x-ray today showed diffuse lung disease stable. Feeding tube is extended in the left upper quadrant of the abdomen. Patient is currently off TPN and tube feedings are at 13 ML's per hour. Patient did have a small mucous- type bowel movement. Patient is on a daily Dulcolax suppository regime. We will add Reglan 5 mg 4 times daily. Patient is currently on sedation holiday. Plan is for possible Dobbhoff placement. Urine output has been adequate. Patient is continued on Antimicrobials in the form of Eraxis, Zosyn and vancomycin. Fevers are improving. Review Of Systems:unable secondary to sedation on vent compared to previous Objective - Vital Signs Vital signs: Vital Signs Temp 98.9 F 05/09/19 08:00 Pulse 75 05/09/19 09:00 Resp 37 H 05/09/19 09:00 BP 110/61 05/09/19 09:00 Pulse Ox 93 L 05/09/19 09:00 Intake & Output 05/08/19 05/09/19 05/09/19 18:59 06:59 18:59 Intake Total 0211.705 8142.079 144.363 Output Total 1070 1135 170 Balance 505.735 530.079 -25.637 Weight 105.5 kg Intake: IV 990 1060 Piperacillin-Tazobactam 3 100 200 .375 gm In Sodium Chloride 0.9% 100 ml @ 25 mls/hr IVPB Q8H ELA Rx#: [id number] Sodium Chloride 0.9% 1, 390 360 000 ml @ 20 mls/hr IV . Q24H ELA Rx#:[id number] Vancomycin 2,000 mg In 500 500 Sodium Chloride 0.9% 500 ml 500 ml @ 167 mls/hr IVPB Q12H ELA Rx#: [id number] Intake, IV Titration 494.735 389.079 131.363 Amount Anidulafungin 100 mg In 100 Sodium Chloride 0.9% 100 ml @ 84 mls/hr IVPB DAILY ELA Rx#:[id number] Propofol 1,000 mg In 394.735 389.079 131.363 Empty Bag 1 bag @ Titrate IV .Q0M ELA Rx#: [id number] Tube Feeding 91 156 13 Other 60 Output: Urine 1070 1135 170 Other: Voiding Method Indwelling Catheter Indwelling Catheter # Bowel Movements 1 ABP, PAP, CO, CI - Last Documented Arterial Blood Pressure 102/102 - Exam - Exam sedated on vent, trach collar, tachypneic and labored breathing, intermittent fevers - EENT Eyes: Present: anicteric sclerae - Neck Neck: Present: normal ROM - Respiratory Respiratory: bilateral: diminished, rhonchi, upper airway inspiratory stridor negative: dullness - Cardiovascular Rhythm: regular Heart sounds: normal: S1, S2 - Gastrointestinal General gastrointestinal: Present: decreased bowel sounds, soft - Integumentary Integumentary: Present: decreased turgor, normal, trace I lateral pedal edema - Psychiatric Psychiatric: Present: no A&O x's 3, patient sedated - Labs CBC & Chem 7: 05/09/19 05:43 05/09/19 05:43 Labs: Abnormal Lab Results - Last 24 Hours (Table) 05/08/19 05/08/19 05/08/19 Range/Units 11:47 17:15 21:25 WBC (3.8-10.6) k/uL RBC (4.30-5.90) m/uL Hgb (13.0-17.5) gm/dL Hct (39.0-53.0) % Neutrophils # (1.3-7.7) k/uL Sodium (137-145) mmol/L Chloride (98-107) mmol/L Carbon Dioxide (22-30) mmol/L BUN (9-20) mg/dL Creatinine (0.66-1.25) mg/dL Glucose (74-99) mg/dL POC Glucose (mg/dL) 131 H 121 H 134 H (75-99) mg/dL Phosphorus (2.5-4.5) mg/dL 05/08/19 05/09/19 05/09/19 Range/Units 23:26 05:39 05:43 WBC 10.7 H (3.8-10.6) k/uL RBC 3.93 L (4.30-5.90) m/uL Hgb 11.8 L (13.0-17.5) gm/dL Hct 37.6 L (39.0-53.0) % Neutrophils # 8.6 H (1.3-7.7) k/uL Sodium (137-145) mmol/L Chloride (98-107) mmol/L Carbon Dioxide (22-30) mmol/L BUN (9-20) mg/dL Creatinine (0.66-1.25) mg/dL Glucose (74-99) mg/dL POC Glucose (mg/dL) 137 H 139 H (75-99) mg/dL Phosphorus (2.5-4.5) mg/dL 05/09/19 Range/Units 05:43 WBC (3.8-10.6) k/uL RBC (4.30-5.90) m/uL Hgb (13.0-17.5) gm/dL Hct (39.0-53.0) % Neutrophils # (1.3-7.7) k/uL Sodium 146 H (137-145) mmol/L Chloride 117 H (98-107) mmol/L Carbon Dioxide 19 L (22-30) mmol/L BUN 21 H (9-20) mg/dL Creatinine 0.53 L (0.66-1.25) mg/dL Glucose 136 H (74-99) mg/dL POC Glucose (mg/dL) (75-99) mg/dL Phosphorus 4.8 H (2.5-4.5) mg/dL Microbiology - Last 24 Hours (Table) 05/08/19 11:37 Blood Fungal Culture - Preliminary Blood 05/04/19 22:35 Blood Culture Gram Stain - Final Blood Blood Culture - Final Pooja albicans Assessment and Plan Plan: 1. Abdominal pain, possible colitis, possible malignancy of the cecum, neither have been ruled out but CEA is less than 0.5.. Dr. Aranda following general surgery, patient still has no bowel movement since admission. Continue IV flu ids, continue Zosyn, vancomycin and Eraxis. Barium study as above. Dulcolax suppository daily. 2. Acute vent dependent respiratory failure with aspiration pneumonia, vent placement 05/04/2019 second episode 3. Severe sepsis secondary to staph species sputum culture, bacteremia with Pooja albicans, arising from multifocal pneumonia. Continue Zosyn, vancomycin and Eraxis. 4. ARDS secondary to multifocal pneumonia, patient's on Zosyn, vancomycin and Eraxis, consult Dr. Kennedy. 5. Acute hypoxic and hypercapnic respiratory failure with bilateral pulmonary infiltrates and masslike consolidation in the right lower lobe most likely secondary to massive aspiration pneumonia initial episode, acute respiratory distress syndrome. Patient is status post bronchoscopy. Patient is status post trach. 6. Mild COPD exacerbation. Continue DuoNeb treatments every 4 hours as needed. Patient was given 3 doses of steroids 7. Diabetes mellitus type 2, insulin requiring, uncontrolled with hyperglycemia. Metformin on hold. Levemir 8 units daily, NovoLog scale 8. Generalized anxiety disorder. Citalopram 40 mg daily on hold. 9. Abdominal distention secondary to ileus. NG tube. Consult with Dr. Aranda . 10. Obstructive sleep apnea noncompliant with CPAP. 11. Blood culture with coag-negative staph, contamination. Candidemia with positive blood cultures, positive central line catheter tip. Continue Eraxis. 12. Delirium tremens, resolved. 13. Severe protein calorie malnutrition. Continue tube feedings at 13 ML's per hour. Possible Dobbhoff placement for feedings. 14. Sepsis, high-grade fevers noted, pending cultures has been obtained sputum urine and catheter tipfrom 05/04/2019. Consult with Dr. Kennedy 15 Hypertension with episode of accelerated hypertension. Continue Lopressor IV, hydralazine, Vasotec as needed Gastroesophageal reflux disease and GI prophylaxis. Continue Protonix. DVT prophylaxis. Heparin subcu. prognosis guarded, critically ill Discharge plan: To be determined. Impression and plan of care have been directed as dictated by the signing physician. Destini Navarro nurse practitioner acting as scribe for signing physician.
--- NOTE | 2019-05-09 14:25 | P.PN ---
Subjective Progress Note Date: 05/09/19 On 05/07/2019 I'm seeing this patient for a follow-up. The patient was recently treated and currently is on propofol at 75 g per KG pigmented. The patient obviously decompensated and the patient was found to have positive candidemia and systemic fungemia probably related to line infection. The patient is still on TPN for nutritional support. The blood culture and a triple lumen catheter tip came back positive for Pooja albicans. The urine was also positive for Pooja albicans. The catheter was positive for Pooja albicans. The triple- lumen catheter was removed and the patient currently has a PICC line. Is still on TPN for nutritional support. He is on Eraxis and the patient is currently hemodynamically stable on no pressors. Abdomen is nondistended. No fever. No chills. He has adequate urine output. He also had staph aureus in his sputum and he was placed on vancomycin. He is also on IV Zosyn. ID is on the case. The white cell count this morning is at 10.0. The blood gases this morning showed a pH of 7.36 with a pCO2 of 39 and pO2 127 and this was done while the patient on assist-control mode rate of 26 with a tidal volume of 450 and FiO2 of 50% with a PEEP of 5. Chest x-ray shows some limited infiltration of the right lower lobe. There is a right-sided PICC line catheter in place. No evidence of any pneumothorax. No evidence of any significant pleural effusion. There is interstitial edema. The renal function is stable. The lactic acid level is down to 1.9. Vancomycin trough is a 15.5. On today's evaluation of 05/08/2019 I'm seeing this patient for a follow-up. The patient is still having on and off fever. Repeat blood cultures of been sent in regards to his systemic candidemia and there is also still pending for now. The patient is on the appropriate antifungal coverage. The patient is also on a combination of Zosyn and vancomycin. Note that the patient is hemodynamically stable. No hypotension. He is maintaining his own blood pres sure. As a PICC line right upper extremity. TPN was discontinued yesterday the patient was started on enteral feeding for nutritional support. He is at goal at 13mL an hour of vital high protein. No abdominal distention. The patient seems to be tolerating the tube feeds without any major difficulties. He has not had any bowel movement activity. The patient is still sedated with propofol. We're going to gradually wean off the propofol and awake this patient up. At the same time the patient be kept on an assist-control mode of ventilation. The vent settings is currently at a tidal volume of 450 with a rate of 26 and FiO2 of 50% with a PEEP of 5. The blood gas today showed a pH of 7.4 with a pCO2 of 35 and pO2 of 120. Tracheostomy tube is in place. No significant leaks on the tracheostomy tube. He is producing adequate amount of urine output. No leukocytosis. White second was at 8.9 with a hemoglobin of 11.9. No other significant events otherwise for now. FiO2 was dropped down to 30% based on the above-mentioned blood gases.\ On 05/09/2019 the patient is being seen in follow-up in the intensive care unit. On today's evaluation the patient is being gradually weaned off the sedation. NG tube will be replaced with a Dobbhoff catheter and will continued enteral fee ding for nutritional support. As mentioned earlier, TPN has been discontinued. The patient has not produced any bowel movement activity yet. Meanwhile, the patient is afebrile hemodynamically stable. I checked the ventilator today and for issues related to synchrony and comfort, I changed the vent setting to include a VC plus mode with a tidal volume of 500 and a rate of 24 with a Itime of 0.7 and an FiO2 of 30% with a PEEP of 5. The patient is having some secretions from his tracheostomy tube. We'll ongoing to obtain sputum Gram stain and culture. His chest x-ray is showing some limited atelectatic changes infiltration of the right lung base. His white cell count is at 10.7. The seda olivo has a normal BUN and creatinine. He has developed some hyperchloremic hypernatremia and the patient will need free water supplementation. For now he was going to have a Dobbhoff tube placed and when the process of weaning this patient off the sedation. Objective - Vital Signs Vital signs: Vital Signs Temp 98.9 F 05/09/19 08:00 Pulse 67 05/09/19 12:04 Resp 29 H 05/09/19 11:30 BP 132/71 05/09/19 11:30 Pulse Ox 97 05/09/19 11:30 Intake & Output 05/08/19 05/09/19 05/09/19 18:59 06:59 18:59 Intake Total 4745.144 6701.079 361.556 Output Total 1070 1135 350 Balance 505.735 530.079 11.556 Weight 105.5 kg 105.5 kg Intake: IV 990 1060 80 Piperacillin-Tazobactam 3 100 200 .375 gm In Sodium Chloride 0.9% 100 ml @ 25 mls/hr IVPB Q8H [facility] Rx#: [id number] Sodium Chloride 0.9% 1, 390 360 80 000 ml @ 20 mls/hr IV . Q24H [facility] Rx#:[id number] Vancomycin 2,000 mg In 500 500 Sodium Chloride 0.9% 500 ml 500 ml @ 167 mls/hr IVPB Q12H [facility] Rx#: [id number] Intake, IV Titration 494.735 389.079 199.556 Amount Anidulafungin 100 mg In 100 Sodium Chloride 0.9% 100 ml @ 84 mls/hr IVPB DAILY [facility] Rx#:[id number] Propofol 1,000 mg In 394.735 389.079 199.556 Empty Bag 1 bag @ Titrate IV .Q0M [facility] Rx#: [id number] Tube Feeding 91 156 52 Other 60 30 Output: Urine 1070 1135 350 Other: Voiding Method Indwelling Catheter Indwelling Catheter Indwelling Catheter # Bowel Movements 1 ABP, PAP, CO, CI - Last Documented Arterial Blood Pressure 102/102 - Exam Gen. appearance, comfortable The patient has a tracheostomy tube in place. The patient is well sedated on propofol and calm and comfortable. Head exam was generally normal. There was no scleral icterus or corneal arcus. Mucous membranes were moist. Neck was supple and without jugular venous distension, thyromegaly, or carotid bruits. Carotids were easily palpable bilaterally. There was no adenopathy. The patient has a tracheostomy tube in place. No evidence of any air leak on a tracheostomy tube stoma. Lungs were clear to auscultation and percussion, and with normal diaphragmatic excursion. No wheezes or rales were noted. Scattered rhonchi heard throughout the lung oneil bilaterally and scattered expiratory wheeze Cardiac exam revealed the PMI to be normally situated and sized. The rhythm was regular and no extrasystoles were noted during several minutes of auscultation. The first and second heart sounds were normal and physiologic splitting of the second heart sound was noted. There were no murmurs, rubs, clicks, or gallops. Abdomen is soft. Nondistended. No direct tenderness rebound tensile guarding at this point in time. Bowel sounds are hypoactive at the present. The patient has no significant abdominal distention. Examination of the extremities revealed easily palpable radial, femoral and pe javier pulses. There was no cyanosis, clubbing and there is +1 pitting edema in the lower extremities and upper extremities bilaterally. Neurologically the patient is sedated however she can easily the sedation and he withdraws to painful stimulation. Examination of the skin revealed no evidence of significant rashes, suspicious appearing nevi or other concerning lesions. - Labs CBC & Chem 7: 05/09/19 05:43 05/09/19 05:43 Labs: Abnormal Lab Results - Last 24 Hours (Table) 05/08/19 05/08/19 05/08/19 Range/Units 17:15 21:25 23:26 WBC (3.8-10.6) k/uL RBC (4.30-5.90) m/uL Hgb (13.0-17.5) gm/dL Hct (39.0-53.0) % Neutrophils # (1.3-7.7) k/uL Sodium (137-145) mmol/L Chloride (98-107) mmol/L Carbon Dioxide (22-30) mmol/L BUN (9-20) mg/dL Creatinine (0.66-1.25) mg/dL Glucose (74-99) mg/dL POC Glucose (mg/dL) 121 H 134 H 137 H (75-99) mg/dL Phosphorus (2.5-4.5) mg/dL 05/09/19 05/09/19 05/09/19 Range/Units 05:39 05:43 05:43 WBC 10.7 H (3.8-10.6) k/uL RBC 3.93 L (4.30-5.90) m/uL Hgb 11.8 L (13.0-17.5) gm/dL Hct 37.6 L (39.0-53.0) % Neutrophils # 8.6 H (1.3-7.7) k/uL Sodium 146 H (137-145) mmol/L Chloride 117 H (98-107) mmol/L Carbon Dioxide 19 L (22-30) mmol/L BUN 21 H (9-20) mg/dL Creatinine 0.53 L (0.66-1.25) mg/dL Glucose 136 H (74-99) mg/dL POC Glucose (mg/dL) 139 H (75-99) mg/dL Phosphorus 4.8 H (2.5-4.5) mg/dL 05/09/19 Range/Units 12:02 WBC (3.8-10.6) k/uL RBC (4.30-5.90) m/uL Hgb (13.0-17.5) gm/dL Hct (39.0-53.0) % Neutrophils # (1.3-7.7) k/uL Sodium (137-145) mmol/L Chloride (98-107) mmol/L Carbon Dioxide (22-30) mmol/L BUN (9-20) mg/dL Creatinine (0.66-1.25) mg/dL Glucose (74-99) mg/dL POC Glucose (mg/dL) 117 H (75-99) mg/dL Phosphorus (2.5-4.5) mg/dL Microbiology - Last 24 Hours (Table) 05/08/19 11:37 Blood Fungal Culture - Preliminary Blood 05/04/19 22:35 Blood Culture Gram Stain - Final Blood Blood Culture - Final Pooja albicans Assessment and Plan Plan: 1 acute hypoxic/hypercapnic respiratory failure in a 69-year-old male patient who presented initially with aspiration pneumonia and subsequently had prolonged ventilator dependent respiratory failure requiring prolonged intubation, mechanical ventilation and subsequent tracheostomy tube insertion. The most recent chest x-ray showing some limited infiltration of the right lung base. Otherwise his oxygenation is improved. The necessity ventilator changes was done today. 2 abdominal distention with possibility of a cecal mass versus inflammatory changes. The colonoscopy was incomplete. Barium enema did not show evidence of any anatomic obstruction although there was concern of a inflammatory changes/tumor in the cecal area and mucosal lesions/colitis/mass cannot be completely excluded. No selin constricting lesion is seen. The patient was on TPN for nutritional support. The patient was switched to enteral feeding and a Dobbhoff catheter will be inserted today. 3 sepsis secondary to systemic candidemia with Pooja albicans growing in the catheter tip in the blood and the urine. Currently on a Eraxis. The catheter was removed and the patient was given a PICC line. Follow-up cultures are still pending for now.the patient was having on and off fever throughout the day yesterday and currently is afebrile. He is hemodynamically stable on no pres sors. Staph aureus/MSSA was again cultured in the sputum. He is also on a combination of Zosyn and vancomycin. 4 obesity. 5 obstructive sleep apnea 6 hypertension 7 hyperlipidemia 8 Chronic back pain 9 alcoholism 10 hypotension recovered and the patient is currently on no pressors. 11 MSSA in the sputum and the patient is currently taking a combination of Zosyn and vancomycin. 12 episodic fever secondary to systemic fungemia. The patient is receiving IV Tylenol for that. PLAN Inserted Dobbhoff catheter. Resume the enteral feeding for nutritional support. Stop TPN. Wean sedation. Necessity ventilator changes was done per her chest x-ray was reviewed. Blood gases was reviewed. Awaiting results of the follow- up blood cultures. Condition is still critical. We'll continue to follow make further recommendations based on his progress. This evaluation was on a more than 30 minutes. Time with Patient: Greater than 30
[2019-05-09 17:17] LABS: Glucose,Whole Blood 131 mg/dL (75-99)
[2019-05-09] MEDS: SODIUM CHLORIDE 0.9% 1,000 ML IV SCH (19:54)
[2019-05-09] MEDS: INSULIN DETEMIR (LEVEMIR) 100 UNIT/ML SYR SQ SCH (21:29)
[2019-05-09 23:55] LABS: Glucose,Whole Blood 116 mg/dL (75-99)
[2019-05-10] MEDS: ARTIFICIAL TEARS-HYPROMELLOSE DROPS 15 ML BTL BOTH EYES SCH ×6 (00:21→20:02)
[2019-05-10] MEDS: INSULIN ASPART (NovoLOG) 100 UNIT/ML VIAL SQ SCH ×4 (00:21→18:49)
[2019-05-10] MEDS: METOCLOPRAMIDE 5 MG/ML 2 ML VIAL IVP SCH ×4 (00:21→17:44)
[2019-05-10] MEDS: PROPOFOL 1,000 MG in EMPTY BAG 1 BAG IV SCH ×5 (00:24→22:02)
[2019-05-10] MEDS: IPRATROPIUM-ALBUTEROL 3 ML NEB INHALATION SCH ×6 (02:57→23:31)
[2019-05-10] MEDS ORDERED: VANCOMYCIN TROUGH DUE 1 EACH MISC MISCELLANE ONE ×2 (03:00→15:00)
[2019-05-10] MEDS: PIPERACILLIN-TAZOBACTAM 3.375 GM in SODIUM CHLORIDE 0.9% 100 ML IVPB SCH ×3 (03:34→19:58)
[2019-05-10] MEDS: HYDROmorphone 0.5 MG/0.5 ML SYRINGE IVP PRN ×7 (03:34→21:53)
[2019-05-10] MEDS: VANCOMYCIN 2,000 MG in SODIUM CHLORIDE 0.9% 500 ML 500 ML IVPB SCH ×2 (03:35→16:06)
[2019-05-10 04:34] LABS: African American GFR (CKD) >90 (>60 ml/min/1.73 sqM); Anion Gap 7 mmol/L; Blood Urea Nitrogen 19 mg/dL (9-20); Calcium 9.6 mg/dL (8.4-10.2); Carbon Dioxide 21 mmol/L (22-30); Chloride 117 mmol/L (98-107); Glucose 123 mg/dL (74-99); Magnesium 2.2 mg/dL (1.6-2.3); Phosphorus 5.1 mg/dL (2.5-4.5); Potassium 4.1 mmol/L (3.5-5.1); Sodium 145 mmol/L (137-145)
[2019-05-10 04:39] LABS: ABG Base Excess -3.2 mmol/L; ABG HCO3 22 mmol/L (21-25); ABG Oxygen Saturation 95.3 % (94-97); ABG PCO2 34 mmHg (35-45); ABG PH 7.41 (7.35-7.45); ABG PO2 80 mmHg (83-108); ABG TCO2 23 mmol/L (19-24); Allen Test Performed? Yes
[2019-05-10 04:46] LABS: Basophils % (A) 0 %; Eosinophils # (A) 0.5 k/uL (0-0.7); Eosinophils % (A) 6 %; HCT 33.6 % (39.0-53.0); HGB 11.2 gm/dL (13.0-17.5); Lymphocytes # (A) 0.7 k/uL (1.0-4.8); Lymphocytes % (A) 8 %; MCH 30.8 pg (25.0-35.0); MCHC 33.4 g/dL (31.0-37.0); MCV 92.3 fL (80.0-100.0); Mean Platelet Volume 9.1; Monocytes # (A) 0.3 k/uL (0-1.0); Monocytes % (A) 3 %; Neutrophils # (A) 8.1 k/uL (1.3-7.7); Neutrophils % (A) 83 %; Platelet Count 191 k/uL (150-450); RBC 3.64 m/uL (4.30-5.90); RDW 15.3 % (11.5-15.5); WBC 9.7 k/uL (3.8-10.6)
[2019-05-10 06:00] LABS: Glucose,Whole Blood 115 mg/dL (75-99)
--- NOTE | 2019-05-10 07:38 | XR ---
EXAMINATION TYPE: XR chest 1V portable DATE OF EXAM: 05/10/2019 COMPARISON: 05/09/2019 HISTORY: Dobbhoff tube placement TECHNIQUE: Single frontal view of the chest is obtained. FINDINGS: Bilateral airspace disease and pleural effusion stable. Feeding tube, tracheostomy tube an d central line stable. No pneumothorax. IMPRESSION: Bilateral airspace disease and pleural effusion stable correlate for pneumonia or CHF.
[2019-05-10] MEDS: ANIDULAFUNGIN 100 MG in SODIUM CHLORIDE 0.9% 100 ML IVPB SCH (09:32)
[2019-05-10] MEDS: FUROSEMIDE 10 MG/ML 4 ML VIAL IV SCH ×2 (09:34→19:58)
[2019-05-10] MEDS: BISACODYL 10 MG SUPP RECTAL SCH (09:34)
[2019-05-10] MEDS: HEPARIN SODIUM,PORCINE 5,000 UNIT/ML 1 ML VIAL SQ SCH ×2 (09:34→19:58)
[2019-05-10] MEDS: PANTOPRAZOLE 40 MG/10 ML VIAL IV SCH (09:34)
[2019-05-10] MEDS: CHLORHEXIDINE GLUCONATE 15 ML CUP MUCOUS MEM SCH ×2 (09:34→19:58)
--- NOTE | 2019-05-10 11:35 | P.PN ---
<Gabriela Jaimes Himanshu - Last Filed: 05/10/19 11:31> Subjective Progress Note Date: 05/10/19 CHIEF COMPLAINT: Abdominal pain HISTORY OF PRESENT ILLNESS: Patient remains in the ICU. He is on mechanical ventilation. Tube feeding infusing. WBC 9.7. Hemoglobin 11.2. PHYSICAL EXAM: VITAL SIGNS: Reviewed. GENERAL: Well-developed on mechanical ventilation. HEENT: Trach site without bleeding or signs of infection. Dobbhoff catheter noted. No sclera icterus. Extraocular movements grossly intact. Moist buccal mucosa. Head is atraumatic, normocephalic. Neck supple without lymphadenopathy. CHEST: Non-labored respirations and equal bilateral excursions on mechanical ventilation CARDIOVASCULAR: Regular rate with regular rhythm. Palpable 2+ radial pulses. ABDOMEN: Soft. Nondistended. Positive bowel sounds. MUSCULOSKELETAL: No clubbing or cyanosis. No gross deformity of extremities. NEUROLOGIC: No focal or lateralizing signs. PSYCH: Appears more awake. Slightly anxious. Remains on mechanical ventilation. SKIN: Well perfused. Good skin turgor. ASSESSMENT: 1. Abdominal pain 2. Marked wall thickening of cecum, possible malignancy versus nonspecific colitis PLAN: Trach management per Dr. Caballero Continue tube feedings Continue antibiotics. Infectious disease following. Continue daily Dulcolax suppository. Reglan added per medicine Nurse practitioner note has been reviewed by physician. Signing provider agrees with the documented findings, assessment, and plan of care. Objective - Vital Signs Vital signs: Vital Signs Temp 100.2 F H 05/10/19 08:00 Pulse 68 05/10/19 10:56 Resp 27 H 05/10/19 10:30 BP 159/97 05/10/19 10:30 Pulse Ox 95 05/10/19 10:30 Intake & Output 05/09/19 05/10/19 05/10/19 18:59 06:59 18:59 Intake Total 6446.134 6317.366 229 Output Total 1050 1650 425 Balance 14.604 493.366 -196 Weight 105.5 kg 105.8 kg Intake: IV 220 936 160 Anidulafungin 100 mg In 100 Sodium Chloride 0.9% 100 ml @ 84 mls/hr IVPB DAILY [facility] Rx#:[id number] Piperacillin-Tazobactam 3 175 .375 gm In Sodium Chloride 0.9% 100 ml @ 25 mls/hr IVPB Q8H [facility] Rx#: [id number] Sodium Chloride 0.9% 1, 220 260 60 000 ml @ 20 mls/hr IV . Q24H [facility] Rx#:[id number] Vancomycin 2,000 mg In 501 Sodium Chloride 0.9% 500 ml 500 ml @ 167 mls/hr IVPB Q12H [facility] Rx#: [id number] Intake, IV Titration 384.604 386.366 Amount Propofol 1,000 mg In 384.604 386.366 Empty Bag 1 bag @ Titrate IV .Q0M [facility] Rx#: [id number] Tube Feeding 130 221 39 Other 330 600 30 Output: Urine 1050 1650 425 Other: Voiding Method Indwelling Catheter Indwelling Catheter # Voids 1 ABP, PAP, CO, CI - Last Documented Arterial Blood Pressure 102/102 - Labs CBC & Chem 7: 05/10/19 04:10 05/10/19 04:10 Labs: Abnormal Lab Results - Last 24 Hours (Table) 05/09/19 05/09/19 05/09/19 Range/Units 12:02 17:03 23:52 RBC (4.30-5.90) m/uL Hgb (13.0-17.5) gm/dL Hct (39.0-53.0) % Neutrophils # (1.3-7.7) k/uL Lymphocytes # (1.0-4.8) k/uL ABG pCO2 (35-45) mmHg ABG pO2 (83-108) mmHg Chloride (98-107) mmol/L Carbon Dioxide (22-30) mmol/L Creatinine (0.66-1.25) mg/dL Glucose (74-99) mg/dL POC Glucose (mg/dL) 117 H 131 H 116 H (75-99) mg/dL Phosphorus (2.5-4.5) mg/dL 05/10/19 05/10/19 05/10/19 Range/Units 04:10 04:10 04:36 RBC 3.64 L (4.30-5.90) m/uL Hgb 11.2 L (13.0-17.5) gm/dL Hct 33.6 L (39.0-53.0) % Neutrophils # 8.1 H (1.3-7.7) k/uL Lymphocytes # 0.7 L (1.0-4.8) k/uL ABG pCO2 34 L (35-45) mmHg ABG pO2 80 L (83-108) mmHg Chloride 117 H (98-107) mmol/L Carbon Dioxide 21 L (22-30) mmol/L Creatinine 0.58 L (0.66-1.25) mg/dL Glucose 123 H (74-99) mg/dL POC Glucose (mg/dL) (75-99) mg/dL Phosphorus 5.1 H (2.5-4.5) mg/dL 05/10/19 Range/Units 05:58 RBC (4.30-5.90) m/uL Hgb (13.0-17.5) gm/dL Hct (39.0-53.0) % Neutrophils # (1.3-7.7) k/uL Lymphocytes # (1.0-4.8) k/uL ABG pCO2 (35-45) mmHg ABG pO2 (83-108) mmHg Chloride (98-107) mmol/L Carbon Dioxide (22-30) mmol/L Creatinine (0.66-1.25) mg/dL Glucose (74-99) mg/dL POC Glucose (mg/dL) 115 H (75-99) mg/dL Phosphorus (2.5-4.5) mg/dL Assessment and Plan (1) Abdominal pain Current Visit: Yes Status: Acute Code(s): R10.9 - UNSPECIFIED ABDOMINAL PAIN SNOMED Code(s): 92906443 (2) Leukocytosis Current Visit: Yes Status: Acute Code(s): D72.829 - ELEVATED WHITE BLOOD CELL COUNT, UNSPECIFIED SNOMED Code(s): 295670554 (3) Respiratory failure Current Visit: Yes Status: Acute Code(s): J96.90 - RESPIRATORY FAILURE, UNSP, UNSP W HYPOXIA OR HYPERCAPNIA SNOMED Code(s): 306273884 (4) Status post tracheostomy Current Visit: Yes Status: Acute Code(s): Z93.0 - TRACHEOSTOMY STATUS SNOMED Code(s): 173334177 <Britt Wen N - Last Filed: 05/10/19 18:25> Subjective He is on multiple antibiotics. Fevers still present. Continue tube feeds. Objective - Vital Signs Vital signs: Vital Signs Temp 101.1 F H 05/10/19 16:00 Pulse 129 H 05/10/19 16:30 Resp 29 H 05/10/19 16:30 BP 170/91 05/10/19 16:30 Pulse Ox 94 L 05/10/19 16:30 Intake & Output 05/09/19 05/10/19 05/10/19 18:59 06:59 18:59 Intake Total 5667.238 4560.366 753 Output Total 1050 1650 2070 Balance 14.604 493.366 -1317 Weight 105.5 kg 105.8 kg Intake: IV 220 936 420 Anidulafungin 100 mg In 100 Sodium Chloride 0.9% 100 ml @ 84 mls/hr IVPB DAILY [facility] Rx#:[id number] Piperacillin-Tazobactam 3 175 100 .375 gm In Sodium Chloride 0.9% 100 ml @ 25 mls/hr IVPB Q8H [facility] Rx#: [id number] Sodium Chloride 0.9% 1, 220 260 220 000 ml @ 20 mls/hr IV . Q24H [facility] Rx#:[id number] Vancomycin 2,000 mg In 501 Sodium Chloride 0.9% 500 ml 500 ml @ 167 mls/hr IVPB Q12H [facility] Rx#: [id number] Intake, IV Titration 384.604 386.366 100 Amount Propofol 1,000 mg In 384.604 386.366 100 Empty Bag 1 bag @ Titrate IV .Q0M [facility] Rx#: [id number] Tube Feeding 130 221 143 Other 330 600 90 Output: Urine 1050 1650 2070 Other: Voiding Method Indwelling Catheter Indwelling Catheter Indwelling Catheter # Voids 1 ABP, PAP, CO, CI - Last Documented Arterial Blood Pressure 102/102 - Labs CBC & Chem 7: 05/10/19 04:10 05/10/19 04:10 Labs: Abnormal Lab Results - Last 24 Hours (Table) 05/09/19 05/10/19 05/10/19 Range/Units 23:52 04:10 04:10 RBC 3.64 L (4.30-5.90) m/uL Hgb 11.2 L (13.0-17.5) gm/dL Hct 33.6 L (39.0-53.0) % Neutrophils # 8.1 H (1.3-7.7) k/uL Lymphocytes # 0.7 L (1.0-4.8) k/uL ABG pCO2 (35-45) mmHg ABG pO2 (83-108) mmHg Chloride 117 H (98-107) mmol/L Carbon Dioxide 21 L (22-30) mmol/L Creatinine 0.58 L (0.66-1.25) mg/dL Glucose 123 H (74-99) mg/dL POC Glucose (mg/dL) 116 H (75-99) mg/dL Phosphorus 5.1 H (2.5-4.5) mg/dL 05/10/19 05/10/19 05/10/19 Range/Units 04:36 05:58 11:51 RBC (4.30-5.90) m/uL Hgb (13.0-17.5) gm/dL Hct (39.0-53.0) % Neutrophils # (1.3-7.7) k/uL Lymphocytes # (1.0-4.8) k/uL ABG pCO2 34 L (35-45) mmHg ABG pO2 80 L (83-108) mmHg Chloride (98-107) mmol/L Carbon Dioxide (22-30) mmol/L Creatinine (0.66-1.25) mg/dL Glucose (74-99) mg/dL POC Glucose (mg/dL) 115 H 118 H (75-99) mg/dL Phosphorus (2.5-4.5) mg/dL Assessment and Plan (1) Respiratory failure Current Visit: Yes Status: Acute Code(s): J96.90 - RESPIRATORY FAILURE, UNSP, UNSP W HYPOXIA OR HYPERCAPNIA SNOMED Code(s): 224141435 (2) Pyrexia Current Visit: Yes Status: Acute Code(s): R50.9 - FEVER, UNSPECIFIED SNOMED Code(s): 097049324 (3) Status post tracheostomy Current Visit: Yes Status: Acute Code(s): Z93.0 - TRACHEOSTOMY STATUS SNOMED Code(s): 167098328 (4) Leukocytosis Current Visit: Yes Status: Acute Code(s): D72.829 - ELEVATED WHITE BLOOD CELL COUNT, UNSPECIFIED SNOMED Code(s): 104411693
[2019-05-10 11:55] LABS: Glucose,Whole Blood 118 mg/dL (75-99)
--- NOTE | 2019-05-10 12:03 | P.PN ---
Subjective Progress Note Date: 05/10/19 On 05/07/2019 I'm seeing this patient for a follow-up. The patient was recently treated and currently is on propofol at 75 g per KG pigmented. The patient obviously decompensated and the patient was found to have positive candidemia and systemic fungemia probably related to line infection. The patient is still on TPN for nutritional support. The blood culture and a triple lumen catheter tip came back positive for Pooja albicans. The urine was also positive for Pooja albicans. The catheter was positive for Pooja albicans. The triple- lumen catheter was removed and the patient currently has a PICC line. Is still on TPN for nutritional support. He is on Eraxis and the patient is currently hemodynamically stable on no pressors. Abdomen is nondistended. No fever. No chills. He has adequate urine output. He also had staph aureus in his sputum and he was placed on vancomycin. He is also on IV Zosyn. ID is on the case. The white cell count this morning is at 10.0. The blood gases this morning showed a pH of 7.36 with a pCO2 of 39 and pO2 127 and this was done while the patient on assist-control mode rate of 26 with a tidal volume of 450 and FiO2 of 50% with a PEEP of 5. Chest x-ray shows some limited infiltration of the right lower lobe. There is a right-sided PICC line catheter in place. No evidence of any pneumothorax. No evidence of any significant pleural effusion. There is interstitial edema. The renal function is stable. The lactic acid level is down to 1.9. Vancomycin trough is a 15.5. On today's evaluation of 05/08/2019 I'm seeing this patient for a follow-up. The patient is still having on and off fever. Repeat blood cultures of been sent in regards to his systemic candidemia and there is also still pending for now. The patient is on the appropriate antifungal coverage. The patient is also on a combination of Zosyn and vancomycin. Note that the patient is hemodynamically stable. No hypotension. He is maintaining his own blood pres sure. As a PICC line right upper extremity. TPN was discontinued yesterday the patient was started on enteral feeding for nutritional support. He is at goal at 13mL an hour of vital high protein. No abdominal distention. The patient seems to be tolerating the tube feeds without any major difficulties. He has not had any bowel movement activity. The patient is still sedated with propofol. We're going to gradually wean off the propofol and awake this patient up. At the same time the patient be kept on an assist-control mode of ventilation. The vent settings is currently at a tidal volume of 450 with a rate of 26 and FiO2 of 50% with a PEEP of 5. The blood gas today showed a pH of 7.4 with a pCO2 of 35 and pO2 of 120. Tracheostomy tube is in place. No significant leaks on the tracheostomy tube. He is producing adequate amount of urine output. No leukocytosis. White second was at 8.9 with a hemoglobin of 11.9. No other significant events otherwise for now. FiO2 was dropped down to 30% based on the above-mentioned blood gases.\ On 05/09/2019 the patient is being seen in follow-up in the intensive care unit. On today's evaluation the patient is being gradually weaned off the sedation. NG tube will be replaced with a Dobbhoff catheter and will continued enteral fee ding for nutritional support. As mentioned earlier, TPN has been discontinued. The patient has not produced any bowel movement activity yet. Meanwhile, the patient is afebrile hemodynamically stable. I checked the ventilator today and for issues related to synchrony and comfort, I changed the vent setting to include a VC plus mode with a tidal volume of 500 and a rate of 24 with a Itime of 0.7 and an FiO2 of 30% with a PEEP of 5. The patient is having some secretions from his tracheostomy tube. We'll ongoing to obtain sputum Gram stain and culture. His chest x-ray is showing some limited atelectatic changes infiltration of the right lung base. His white cell count is at 10.7. The seda olivo has a normal BUN and creatinine. He has developed some hyperchloremic hypernatremia and the patient will need free water supplementation. For now he was going to have a Dobbhoff tube placed and when the process of weaning this patient off the sedation. On 05/10/2019 I'm seeing this patient for a follow-up. The patient is being gradually weaned off sedation. We were able to cut him off completely off propofol. The patient was following some simple commands holding became tachypneic and tachycardic and worked up. It is also had some increased mobility and we felt that a Dobbhoff was removed. I performed a another abdominal x-ray in the tip of the Dobbhoff is seen in the stomach. Will continued enteral feeding for now. In terms of his vent support, the patient remains on an assist-control mode at the rate of 24 with a tidal volume of 500 and FiO2 of 30% with a PEEP of 5. Chest x-ray showing increased pulmonary vascular congestion with evolution of a right lower lobe pulmonary infiltrate. Nevertheless, he is hemodynamically stable. He is having low-grade fevers. He remains on a combination of Zosyn and vancomycin and Eraxis . The tube feeds are running at 13 ML's an hour. He is currently not receiving any form of TPN. Function is stable. He remains in a positive fluid balance and gentle diuresis will be started today. Objective - Vital Signs Vital signs: Vital Signs Temp 100.2 F H 05/10/19 08:00 Pulse 85 05/10/19 11:10 Resp 27 H 05/10/19 10:30 BP 159/97 05/10/19 10:30 Pulse Ox 95 05/10/19 10:30 Intake & Output 05/09/19 05/10/19 05/10/19 18:59 06:59 18:59 Intake Total 3306.558 2141.366 229 Output Total 1050 1650 425 Balance 14.604 493.366 -196 Weight 105.5 kg 105.8 kg Intake: IV 220 936 160 Anidulafungin 100 mg In 100 Sodium Chloride 0.9% 100 ml @ 84 mls/hr IVPB DAILY [facility] Rx#:[id number] Piperacillin-Tazobactam 3 175 .375 gm In Sodium Chloride 0.9% 100 ml @ 25 mls/hr IVPB Q8H [facility] Rx#: [id number] Sodium Chloride 0.9% 1, 220 260 60 000 ml @ 20 mls/hr IV . Q24H [facility] Rx#:[id number] Vancomycin 2,000 mg In 501 Sodium Chloride 0.9% 500 ml 500 ml @ 167 mls/hr IVPB Q12H [facility] Rx#: [id number] Intake, IV Titration 384.604 386.366 Amount Propofol 1,000 mg In 384.604 386.366 Empty Bag 1 bag @ Titrate IV .Q0M [facility] Rx#: [id number] Tube Feeding 130 221 39 Other 330 600 30 Output: Urine 1050 1650 425 Other: Voiding Method Indwelling Catheter Indwelling Catheter # Voids 1 ABP, PAP, CO, CI - Last Documented Arterial Blood Pressure 102/102 - Exam Gen. appearance, comfortable The patient has a tracheostomy tube in place. The patient is dozing from his underlying sedation Head exam was generally normal. There was no scleral icterus or corneal arcus. Mucous membranes were moist. Neck was supple and without jugular venous distension, thyromegaly, or carotid bruits. Carotids were easily palpable bilaterally. There was no adenopathy. The patient has a tracheostomy tube in place. No evidence of any air leak on a tracheostomy tube stoma. Lungs were clear to auscultation and percussion, and with normal diaphragmatic excursion. No wheezes or rales were noted. Scattered rhonchi heard throughout the lung oneil bilaterally and scattered expiratory wheeze Cardiac exam revealed the PMI to be normally situated and sized. The rhythm was regular and no extrasystoles were noted during several minutes of auscultation. The first and second heart sounds were normal and physiologic splitting of the second heart sound was noted. There were no murmurs, rubs, clicks, or gallops. Abdomen is soft. Nondistended. No direct tenderness rebound tensile guarding at this point in time. Bowel sounds are hypoactive at the present. The patient has no significant abdominal distention. Examination of the extremities revealed easily palpable radial, femoral and pedal pulses. There was no cyanosis, clubbing and there is +1 pitting edema in the lower extremities and upper extremities bilaterally. Neurologically the patient is sedated however she can easily the sedation and he withdraws to painful stimulation. Examination of the skin revealed no evidence of significant rashes, suspicious appearing nevi or other concerning lesions. - Labs CBC & Chem 7: 05/10/19 04:10 05/10/19 04:10 Labs: Abnormal Lab Results - Last 24 Hours (Table) 05/09/19 05/09/19 05/09/19 Range/Units 12:02 17:03 23:52 RBC (4.30-5.90) m/uL Hgb (13.0-17.5) gm/dL Hct (39.0-53.0) % Neutrophils # (1.3-7.7) k/uL Lymphocytes # (1.0-4.8) k/uL ABG pCO2 (35-45) mmHg ABG pO2 (83-108) mmHg Chloride (98-107) mmol/L Carbon Dioxide (22-30) mmol/L Creatinine (0.66-1.25) mg/dL Glucose (74-99) mg/dL POC Glucose (mg/dL) 117 H 131 H 116 H (75-99) mg/dL Phosphorus (2.5-4.5) mg/dL 05/10/19 05/10/19 05/10/19 Range/Units 04:10 04:10 04:36 RBC 3.64 L (4.30-5.90) m/uL Hgb 11.2 L (13.0-17.5) gm/dL Hct 33.6 L (39.0-53.0) % Neutrophils # 8.1 H (1.3-7.7) k/uL Lymphocytes # 0.7 L (1.0-4.8) k/uL ABG pCO2 34 L (35-45) mmHg ABG pO2 80 L (83-108) mmHg Chloride 117 H (98-107) mmol/L Carbon Dioxide 21 L (22-30) mmol/L Creatinine 0.58 L (0.66-1.25) mg/dL Glucose 123 H (74-99) mg/dL POC Glucose (mg/dL) (75-99) mg/dL Phosphorus 5.1 H (2.5-4.5) mg/dL 05/10/19 05/10/19 Range/Units 05:58 11:51 RBC (4.30-5.90) m/uL Hgb (13.0-17.5) gm/dL Hct (39.0-53.0) % Neutrophils # (1.3-7.7) k/uL Lymphocytes # (1.0-4.8) k/uL ABG pCO2 (35-45) mmHg ABG pO2 (83-108) mmHg Chloride (98-107) mmol/L Carbon Dioxide (22-30) mmol/L Creatinine (0.66-1.25) mg/dL Glucose (74-99) mg/dL POC Glucose (mg/dL) 115 H 118 H (75-99) mg/dL Phosphorus (2.5-4.5) mg/dL Assessment and Plan Plan: 1 acute hypoxic/hypercapnic respiratory failure in a 69-year-old male patient who presented initially with aspiration pneumonia and subsequently had prolonged ventilator dependent respiratory failure requiring prolonged intubation, mechanical ventilation and subsequent tracheostomy tube insertion. The most recent chest x-ray showing some limited infiltration of the right lung base. In addition to that there is also pulmonary vessel congestion. Nevertheless the patient remains on a 30% FiO2 and PEEP of 5 superimposed pneumonia of the right lower lobe is considered although not certain at this point in time. 2 abdominal distention with possibility of a cecal mass versus inflammatory changes. The colonoscopy was incomplete. Barium enema did not show evidence of any anatomic obstruction although there was concern of a inflammatory changes/tumor in the cecal area and mucosal lesions/colitis/mass cannot be completely excluded. No selin constricting lesion is seen. The patient was on TPN for nutritional support. The patient was switched to enteral feeding and a Dobbhoff catheter will be inserte and the patient continues to receive enteral feeding with vital high protein at 13 mL an hour. 3 sepsis secondary to systemic candidemia with Pooja albicans growing in the catheter tip in the blood and the urine. Currently on a Eraxis. The catheter was removed and the patient was given a PICC line. Follow-up cultures are still pending for now.the patient was having on and off fever throughout the day yesterday and currently is afebrile. He is hemodynamically stable on no pressors. Staph aureus/MSSA was again cultured in the sputum. He is also on a combination of Zosyn and vancomycin. 4 obesity. 5 obstructive sleep apnea 6 hypertension 7 hyperlipidemia 8 Chronic back pain 9 alcoholism 10 hypotension recovered and the patient is currently on no pressors. 11 MSSA in the sputum and the patient is currently taking a combination of Zosyn and vancomycin. 12 episodic fever secondary to systemic fungemia. The patient is receiving IV Tylenol for that. PLAN We will cut down the sedation and discontinue. Use Haldol 1 mg every 1-2 hours for any delirium/agitation. Continue vent support and keep the patient on same ventilator setting in hemodialysis mode of ventilation. He is a 40 mg IV push every 12 hours. Awaiting the results of the follow-up cultures. The patient is still having low-grade fever. Will and 2 sets of cultures. Based on all this, we'll continue to follow up this patient and make further recommendations according to his progress. Is a critically care evaluate was on a more than 30 minutes. Time with Patient: Greater than 30
--- NOTE | 2019-05-10 12:03 | P.PN ---
Subjective Progress Note Date: 05/10/19 This is a 69-year-old male patient of Dr. Gallardo with past medical history of hypertension, hyperlipidemia, COPD, gastroesophageal reflux disease, remote history of tobacco use, obstructive sleep apnea not using CPAP. Patient complains of sudden onset of abdominal pain starting on Tuesday. He also complains of bloating in the abdomen for the past couple months as well as weight loss of 5-10 pounds over the past 3 months. He complains of decreased appetite. He states he has had occasional burgundy stools. He denies any black stools, no diarrhea, no vomiting. He denies any urinary symptoms. Patient states he had his last colonoscopy in 2013 which was normal. Patient presents to [facility] emergency center for evaluation. Abdominal x-ray shows no acute findings. CAT scan of the abdomen and pelvis showed marked thickening of the cecum concerning for malignancy. A nonspecific colitis is not excluded but felt to be less likely. Thickening in the gastric rugae which may be secondary to under distention versus a nonspecific gastritis. EKG is a sinus tachycardia with right bundle branch block, left AFB. WBC 16.7, hemoglobin 14.7, creatinine 0.74. Troponin negative. Amylase and lipase, liver function tests all normal. Urinalysis was clear with 1+ protein. Patient was admitted to the [facility] floor, consult with Dr. Givens, IV fluids, pain medications and Zofran. Plan is for colonoscopy tomorrow. 04/17: Overnight, patient developed acute respiratory failure and was transferred to the intensive care unit and patient placed on BiPAP, currently under care of Dr. Caballero. Patient subsequently intubated and placed on mechanical ventilation. Echocardiogram from yesterday reveals EF 55-60% with moderate concentric left ventricle hypertrophy, trace mitral regurgitation, trace tricuspid regurgitation, no pulmonary hypertension. No pericardial effusion. Chest x-ray shows new right basilar and pneumonic consolidation with diminished inspiration background right hilar and left basilar more patchy edema and or infiltrate felt present. Repeat chest x-ray shows new endotracheal tube with placement described with recommendations to pullback. Mild cardiomegaly and low lung volumes with bilateral hilar edema and/or infiltrate and right basilar consolidation all redemonstrated increasing left basilar infiltrate felt present. Abdomen was more distended and NG tube was placed. Immediate surgical consultation was requested by Dr. Caballero. Dr. Givens attempted bedside colonoscopy but patient was not properly prepped. He is scheduled for CAT scan of the abdomen and pelvis this afternoon at 2:30. NG tube is in place with bile color returned. Family members are in the waiting room and have been updated. 04/18: The patient remains in intensive care unit intubated and on mechanical ventilation. Vent settings have been decreased and no plan for sedation holiday today. He was weaned off norepinephrine this morning. Urine output has been 50-75 mL per hour. Noted that the Goldberg tube is pink but urine is alesia most likely a drug reaction. Patient has had several bowel movements this morning. Antibiotics have been switched to Zosyn and vancomycin. TSH 0.224 with normal free T4 at 1.24. Surgical consultation has been changed to Dr. Aranda per family wishes. 04/19: Patient remains in intensive care unit intubated and on mechanical ventilation. Patient has had increased purulent secretions and underwent reintubation by Dr. Caballero. He also perform bronchoscopy at the bedside and suction 20 ML's purulent material specimen was sent to the lab for cytology and culture. He is concern for ARDS. Patient is continued on Zosyn and vancomycin. He has been off vasopressors since yesterday morning. Patient has had a small amount of liquid stool today much decreased from yesterday. Dr. Aranda is on for surgery at this point. Patient is having minimal output from NG tube. Bowel sounds remain hypoactive. Consult has been added for GI regarding concern for ischemic colitis. 04/20: Patient remains intubated and on mechanical ventilation. Repeat chest x- ray shows continued mild to moderate heart failure. Small to moderate effusions with prominent bibasilar atelectasis and/or consolidation persists. Dr. Aranda is planning for bedside colonoscopy today. Patient was ordered for soapsuds enema last night and this morning. Tube feedings on hold. He has been afebrile, heart rate in the 50s and 60s, blood pressure 141/66. Pulse ox 99%. WBC 8.1, hemoglobin 11.2. Creatinine 0.65. Bronchial washing cytology is pending. Bronchial cultures in progress. Patient will need to start tube feedings or TPN depending on results of colonoscopy scheduled for this afternoon. Patient was given 1 dose of IV Lasix this morning and is diuresing well. Family in the waiting room have been updated. 04/21: Patient remains in the bed, FiO2 40%, PEEP of 6, NG tube has been placed and had taken out the OG tube, fecaloid billous contents are observed in the NG tube, bowel sounds are very diminished today, no bowel movements over the past 24 hours, x-rays of the abdomen will be done to evaluate for progressive bowel obstruction, patient remains to be afebrile, no leukocytosis bronchial washing cultures shows no normal zander vital signs are stable no hypotensive events, patient is slightly hypotensive on IV Solu-Medrol 40 every 8 04/23: Patient remains intubated and on mechanical ventilation. Dr. Dunham does not plan for attempt at weaning today. He is started him on hydralazine for blood pressure control. Patient has been started on TPN. On Tuesday, patient underwent colonoscopy with Dr. Aranda that revealed reticulosis, tortuous colon and recommends once patient is off ventilation to have barium enema to evaluate the ileocecal valve. Keep NG tube post extubation and hold tube feedings for now. No bowel movement today. 04/24: Patient had a rough night became significantly hypertensive, tachypneic and tachycardic. Patient was started on labetalol drip once other options were attempted without success and this was weaned off this morning. Patient also was placed on Nimbex and fentanyl drip which are to be weaned off today. Chest x-ray shows worsening interstitial infiltrates bilaterally and possible interstitial edema. Dr. Dunham increase Lasix to 40 mg IV push every 12 hours. Patient has not had a bowel movement. He remains on TPN and NG tube to suction. Urine output is adequate, tea-colored. Discussed yesterday the possibility of needing a trach and PEG with family members. At this time, Dr. Dunham would like to hold off. 04/25: Patient is still sedated on mechanical ventilation he had failed his weaning parameter today I want to see him when the and the son were in the room door tachycardia with Dr. dao about further plan. Pulmonary and from medicine standpoint patient most likely will need to go to trach no PEG tube can be done for now expected the plan probably for Tuesday and from thereon if more stable can go for his barium enema to come with final diagnosis of the tumor or the finding in the cecum and the large intestine and from thereon further management can be planned. Patient still on multiple drips for pain management let pressure TPN and DT. 04/26: A Chin still on mechanical ventilation, sedated, he is slightly bit awaking when backing off on sedation is still very agitated between having quite bed elevated blood pressure and pulse rate did not succeed on weaning parameter and most likely he will need tracheostomy by tomorrow. PEG tube is negative be possible at this point because of the possibility of mass in the cecum with obstruction cankerous problem if he is more stable can go for barium enema and then PEG tube if there is no cecal mass likely his CEA came back negative. 04/27 patient examined bedside currently intubated D 10. Patient came in with abdominal pain, nausea, vomiting followed by a respiratory failure the next day leading to intubation. Patient is found to be agitated him on ventilator. Currently requiring 75 mics of propofol. On vital evaluation patient had a heart rate of 77 respiratory rate 26 blood pressure 159/62 on clear with pain drip abdominal x-ray this morning shows nonspecific bowel pattern with the bilateral pleural effusion chest x-ray suggestive of pulmonary edema versus consolidation. Patient is currently on Lasix 40 mg IV twice a day and making good urine output 75 mL per hour. Blood cultures so far negative. Bronchoscopy results are negative so far. Plan for tracheostomy placement today. PEG tube is on hold until further information about the cecal mass/colitis. 04/28: Examined at bedside currently on CPAP. Patient was on a sedation holiday for approximately 1 hour sedation has been increased due to fatigue and agitation. Vital signs have been stable blood pressure 151/60 pulse ox a 97% on CPAP pulse rate 98. Patient was able to follow commands however weak. Patient was able to nod head and answer actions appropriately. Family at the bedside discussing plan of care. Continue nutritional support with TPN. 04/29: Patient examined bedside currently on CPAP tolerating. Patient is more alert today compared to yesterday. Patient is able to follow commands movements are weak and nods head appropriately to questions. Patient is on propofol at 10 at this time. She was on a sedation holiday however heart rate and blood pressure increase. Urinary output approximately 60-70 ML's per hour. Patient has not had a bowel movement continues with NG suction approximately 600-700 ML's output in 24 hours. 04/30: Patient is sitting up in bed does appear in less distress today he continues to have the trach in place we're trying to the patient on the ventilator hopefully he will be on trach collar tomorrow morning, family were at the bedside and updated about his situation he will be weaned off sedation completely liver on today he does not appear to be in acute distress at this time, we will hold off transfer the patient until after he weaned off. 05/01: Patient is sitting up in bed he is more awake and more alert is moving all his extremities currently has a trach collar in place, he continued to follow commands appropriately, his family were at the bedside and updated about his current situation. 05/02: Patient is sitting up in bed he continues to have ended in place, he continues to have the trach collar in place, is moving all his extremities, he is feeling better today he has no abdominal pain, he has not passed any gas and he has not had a bowel movement. 05/03: Patient remains in the intensive care unit. He has undergone barium enema today which revealed limited single contrast barium enema. Limited distention of the left side of the colon. There is proximal to mid sigmoid diverticulosis. There he reaches the cecum and refluxes multiple distal ileal loops. There is subtle contour irregularity of the cecum and mucosal lesion or colitis here is difficult to exclude. No frankly constricting lesion is seen. Repeat chest x- ray reveals correlate for congestive heart failure, pneumonia not excluded. Patient has been continued on TPN. Patient has a trach collar place at 28%. He has been hemodynamically stable. Not requiring vasopressors. Temperature max 100.0. White count is 12.7, potassium 3.4, creatinine 0.61. Blood sugars running between 155 and 181. 05/04: Patient remains in intensive care unit. Patient pulled his NG tube out yesterday and Dr Aranda to reevaluate as he did fail swallow evaluation. Speech therapy will reevaluate today as well. Patient is scheduled for PICC line placement today for TPN and central line will then be removed. Abdomen is soft. He has had good urine output. His temperature max 101.2 axillary. He is on IV Tylenol. Patient has worked with PT and OT and up to a chair. He is extremely fatigued following this activity. Patient will have an extended recovery phase. Ativan will be changed to only at bedtime if needed and Toradol added for pain versus Dilaudid. 05/05: Patient has worsened overnight, persistent fevers now high temperature of 10-103, patient was given cooling blanket, patient was seen in ICU, pancultures were obtained, patient's diaphoretic, tachypneic, labored breathing, pulmonary has restarted him on vent support through trach collar, significant tachypnea,. I requested infectious disease to see him, Dr. Kennedy, secondary to decompensation new high gradefevers,, troponins were ordered, EKG to be done, Solu-Medrol 3 doses to be given, patient has palate shallow ulcerations doesn't look viral, right decubitus stage II pressure ulcers, no petechiae or other rash noted,patient is on TPN, no bowel movement since admission per nursing staff 05/06, patient's fever has subsided, cultures from sputum shows presumptive staph aureus, usually in Yeast species, catheter tip Pooja albicans, patient is less tachypneic and is much more comfortable not in distress, steroids has been completed 3 doses, and has some hyperglycemia, on insulin drip at 22-25 units an hour, NPH was given early this morning at 3:00 and will be started on Levemir tonight 8 units starting 3 PM daily, patient is receiving 150 g of glucose per day from TPN. Patient currently is on vancomycin and Zosyn and anidulfungin by Dr. Kennedy. Cardiology has seen the patient, rule out HI with elevated troponin, most likely secondary to severe sepsis 05/07: Patient remains in intensive care unit on mechanical ventilation. Patient has been changed to DO NOT RESUSCITATE over the weekend. Patient has NG tube and we'll start tube feedings and plan. TPN. He has not had a bowel movement since April 19. Insulin drip will be transitioned over to long-acting Levemir and NovoLog scale. 05/08: Patient remains in the intensive care unit, on mechanical ventilation. Patient is still having intermittent fevers. Family history and CODE STATUS back to full code. He is on tube feedings at 13 ML's per hour which is current with no plan to increase this. Abdomen is soft but no bowel sounds. No stool. He is ordered for Dulcolax suppository this morning. KUB will be ordered. Patient failed a sedation holiday today. Urine output has been adequate. 05/09: Chest x-ray today showed diffuse lung disease stable. Feeding tube is extended in the left upper quadrant of the abdomen. Patient is currently off TPN and tube feedings are at 13 ML's per hour. Patient did have a small mucous- type bowel movement. Patient is on a daily Dulcolax suppository regime. We will add Reglan 5 mg 4 times daily. Patient is currently on sedation holiday. Plan is for possible Dobbhoff placement. Urine output has been adequate. Patient is continued on Antimicrobials in the form of Eraxis, Zosyn and vancomycin. Fevers are improving. 05/10, patient remains in ICU, he has been weaned off his propofol for sedation, still requiring Dilaudid for pain, has thick secretions from his trach, still requiring ventilatory support, no bowel movements except for some years, patient has postoperative bowel sounds on today's examination, the polyp is refusing vital HPI 13 mL an hour,stable labs no leukocytosis, hemoglobin 11.2, creatinine 0.5, CO2 of 21, sodium 145phosphorous now elevated at 5.1, dietary following hyperphosphatemia for the vital H PT-max today of 100.2 Review Of Systems:unable secondary to sedation on vent compared to previous Objective - Vital Signs Vital signs: Vital Signs Temp 100.2 F H 05/10/19 08:00 Pulse 85 05/10/19 11:10 Resp 27 H 05/10/19 10:30 BP 159/97 05/10/19 10:30 Pulse Ox 95 05/10/19 10:30 Intake & Output 05/09/19 05/10/19 05/10/19 18:59 06:59 18:59 Intake Total 8047.691 0634.366 229 Output Total 1050 1650 425 Balance 14.604 493.366 -196 Weight 105.5 kg 105.8 kg Intake: IV 220 936 160 Anidulafungin 100 mg In 100 Sodium Chloride 0.9% 100 ml @ 84 mls/hr IVPB DAILY ELA Rx#:[id number] Piperacillin-Tazobactam 3 175 .375 gm In Sodium Chloride 0.9% 100 ml @ 25 mls/hr IVPB Q8H ELA Rx#: [id number] Sodium Chloride 0.9% 1, 220 260 60 000 ml @ 20 mls/hr IV . Q24H ELA Rx#:[id number] Vancomycin 2,000 mg In 501 Sodium Chloride 0.9% 500 ml 500 ml @ 167 mls/hr IVPB Q12H ELA Rx#: [id number] Intake, IV Titration 384.604 386.366 Amount Propofol 1,000 mg In 384.604 386.366 Empty Bag 1 bag @ Titrate IV .Q0M ELA Rx#: [id number] Tube Feeding 130 221 39 Other 330 600 30 Output: Urine 1050 1650 425 Other: Voiding Method Indwelling Catheter Indwelling Catheter # Voids 1 ABP, PAP, CO, CI - Last Documented Arterial Blood Pressure 102/102 - Exam sedated on vent, trach collartachypneic and improved labored breathing - EENT Eyes: Present: anicteric sclerae, poor dentition (need oral care) - Respiratory Respiratory: bilateral: rhonchi - Cardiovascular Rhythm: regular Abnormal Heart Sounds: Absent: systolic murmur, diastolic murmur, rub, S3 Gallop, S4 Gallop, click, other - Gastrointestinal General gastrointestinal: Present: decreased bowel sounds, soft - Integumentary Integumentary: Present: decreased turgor, normal - Psychiatric Psychiatric Comment(s): sedated able to move all 4 extremities - Labs CBC & Chem 7: 05/10/19 04:10 05/10/19 04:10 Labs: Abnormal Lab Results - Last 24 Hours (Table) 05/09/19 05/09/19 05/09/19 Range/Units 12:02 17:03 23:52 RBC (4.30-5.90) m/uL Hgb (13.0-17.5) gm/dL Hct (39.0-53.0) % Neutrophils # (1.3-7.7) k/uL Lymphocytes # (1.0-4.8) k/uL ABG pCO2 (35-45) mmHg ABG pO2 (83-108) mmHg Chloride (98-107) mmol/L Carbon Dioxide (22-30) mmol/L Creatinine (0.66-1.25) mg/dL Glucose (74-99) mg/dL POC Glucose (mg/dL) 117 H 131 H 116 H (75-99) mg/dL Phosphorus (2.5-4.5) mg/dL 05/10/19 05/10/19 05/10/19 Range/Units 04:10 04:10 04:36 RBC 3.64 L (4.30-5.90) m/uL Hgb 11.2 L (13.0-17.5) gm/dL Hct 33.6 L (39.0-53.0) % Neutrophils # 8.1 H (1.3-7.7) k/uL Lymphocytes # 0.7 L (1.0-4.8) k/uL ABG pCO2 34 L (35-45) mmHg ABG pO2 80 L (83-108) mmHg Chloride 117 H (98-107) mmol/L Carbon Dioxide 21 L (22-30) mmol/L Creatinine 0.58 L (0.66-1.25) mg/dL Glucose 123 H (74-99) mg/dL POC Glucose (mg/dL) (75-99) mg/dL Phosphorus 5.1 H (2.5-4.5) mg/dL 05/10/19 05/10/19 Range/Units 05:58 11:51 RBC (4.30-5.90) m/uL Hgb (13.0-17.5) gm/dL Hct (39.0-53.0) % Neutrophils # (1.3-7.7) k/uL Lymphocytes # (1.0-4.8) k/uL ABG pCO2 (35-45) mmHg ABG pO2 (83-108) mmHg Chloride (98-107) mmol/L Carbon Dioxide (22-30) mmol/L Creatinine (0.66-1.25) mg/dL Glucose (74-99) mg/dL POC Glucose (mg/dL) 115 H 118 H (75-99) mg/dL Phosphorus (2.5-4.5) mg/dL Assessment and Plan Plan: 1. Abdominal pain, possible colitis, possible malignancy of the cecum, neither have been ruled out but CEA is less than 0.5.. Dr. Aranda following general surgery, patient still has no bowel movement since admission. Continue IV fluids, continue Zosyn, vancomycin and Eraxis. Barium study as above. Dulcolax suppository daily. off TPN currently Dobbhoff feedings with vital HPV 1 3 mL an hour 2. Acute vent dependent respiratory failure with aspiration pneumonia, vent placement 05/04/2019 second episode 3. Severe sepsis secondary to staph MSSA species sputum culture, bacteremia with Pooja albicans, arising from multifocal pneumonia. Continue Zosyn, vancomycin and Eraxis. 4. ARDS secondary to multifocal pneumonia, patient's on Zosyn, vancomycin and Eraxis, consult Dr. Kennedy. 5. Acute hypoxic and hypercapnic respiratory failure with bilateral pulmonary infiltrates and masslike consolidation in the right lower lobe most likely secondary to massive aspiration pneumonia initial episode, acute respiratory distress syndrome. Patient is status post bronchoscopy. Patient is status post trach. 6. Mild COPD exacerbation. Continue DuoNeb treatments every 4 hours as needed. Patient was given 3 doses of steroids 7. Diabetes mellitus type 2, insulin requiring, uncontrolled with hyperglycemia. Metformin on hold. Levemir 8 units daily, NovoLog scale 8. Generalized anxiety disorder. Citalopram 40 mg daily on hold. 9. Abdominal distention secondary to ileus. NG tube. Consult with Dr. Aranda . 10. Obstructive sleep apnea noncompliant with CPAP. 11. Blood culture with coag-negative staph, contamination. Candidemia with positive blood cultures, positive central line catheter tip. Continue Eraxis. 12. Delirium tremens, resolved. 13. Severe protein calorie malnutrition. Continue tube feedings at 13 ML's per hour. Possible Dobbhoff placement for feedings. 14. Sepsis, high-grade fevers noted, pending cultures has been obtained sputum urine and catheter tipfrom 05/04/2019. Consult with Dr. Kennedy 15 Hypertension with episode of accelerated hypertension. Continue Lopressor IV, hydralazine, Vasotec as needed Gastroesophageal reflux disease and GI prophylaxis. Continue Protonix. DVT prophylaxis. Heparin subcu. prognosis guarded, critically ill Discharge plan: To be determined.
[2019-05-10] MEDS: SODIUM CHLORIDE 0.9% 1,000 ML IV SCH (12:31)
[2019-05-10] MEDS: HALOPERIDOL LACTATE 5 MG/ML 1 ML VIAL IVP PRN ×7 (12:34→21:53)
[2019-05-10] MEDS: hydrALAZINE HCL 20 MG/ML 1 ML VIAL IVP PRN (14:39)
[2019-05-10] MEDS: ENALAPRILAT 1.25 MG/ML 1 ML VIAL IVP PRN (17:45)
[2019-05-10 18:42] LABS: Glucose,Whole Blood 122 mg/dL (75-99)
[2019-05-10] MEDS: INSULIN DETEMIR (LEVEMIR) 100 UNIT/ML SYR SQ SCH (19:59)
[2019-05-10 23:48] LABS: Glucose,Whole Blood 124 mg/dL (75-99)
[2019-05-11] MEDS: ARTIFICIAL TEARS-HYPROMELLOSE DROPS 15 ML BTL BOTH EYES SCH ×6 (01:20→20:52)
[2019-05-11] MEDS: HYDROmorphone 0.5 MG/0.5 ML SYRINGE IVP PRN ×4 (01:21→23:41)
[2019-05-11] MEDS: METOCLOPRAMIDE 5 MG/ML 2 ML VIAL IVP SCH ×4 (01:22→16:42)
[2019-05-11] MEDS: PROPOFOL 1,000 MG in EMPTY BAG 1 BAG IV SCH ×4 (01:22→23:56)
[2019-05-11] MEDS: INSULIN ASPART (NovoLOG) 100 UNIT/ML VIAL SQ SCH ×4 (01:29→18:15)
[2019-05-11] MEDS: IPRATROPIUM-ALBUTEROL 3 ML NEB INHALATION SCH ×6 (03:04→22:59)
[2019-05-11] MEDS: PIPERACILLIN-TAZOBACTAM 3.375 GM in SODIUM CHLORIDE 0.9% 100 ML IVPB SCH ×3 (04:14→20:52)
[2019-05-11] MEDS: VANCOMYCIN 1,750 MG in SODIUM CHLORIDE 0.9% 500 ML 500 ML IVPB SCH ×2 (04:14→16:42)
[2019-05-11 04:38] LABS: ABG Base Excess 1.1 mmol/L; ABG HCO3 25 mmol/L (21-25); ABG Oxygen Saturation 94.7 % (94-97); ABG PCO2 36 mmHg (35-45); ABG PH 7.46 (7.35-7.45); ABG PO2 77 mmHg (83-108); ABG TCO2 26 mmol/L (19-24); Allen Test Performed? Yes
[2019-05-11 05:58] LABS: Basophils % (A) 0 %; Eosinophils # (A) 0.4 k/uL (0-0.7); Eosinophils % (A) 5 %; HCT 37.5 % (39.0-53.0); Lymphocytes # (A) 0.8 k/uL (1.0-4.8); Lymphocytes % (A) 10 %; MCH 29.6 pg (25.0-35.0); MCHC 31.9 g/dL (31.0-37.0); MCV 92.8 fL (80.0-100.0); Mean Platelet Volume 8.7; Monocytes # (A) 0.3 k/uL (0-1.0); Monocytes % (A) 4 %; Neutrophils # (A) 6.3 k/uL (1.3-7.7); Neutrophils % (A) 79 %; Platelet Count 278 k/uL (150-450); RBC 4.04 m/uL (4.30-5.90); RDW 15.2 % (11.5-15.5); WBC 7.9 k/uL (3.8-10.6)
[2019-05-11 06:09] LABS: African American GFR (CKD) >90 (>60 ml/min/1.73 sqM); Anion Gap 9 mmol/L; Blood Urea Nitrogen 25 mg/dL (9-20); Calcium 10.1 mg/dL (8.4-10.2); Carbon Dioxide 22 mmol/L (22-30); Chloride 117 mmol/L (98-107); Glucose 119 mg/dL (74-99); Magnesium 2.1 mg/dL (1.6-2.3); Phosphorus 5.3 mg/dL (2.5-4.5); Potassium 3.4 mmol/L (3.5-5.1); Sodium 148 mmol/L (137-145)
[2019-05-11 06:10] LABS: Glucose,Whole Blood 107 mg/dL (75-99)
[2019-05-11] MEDS: POTASSIUM BICARBONATE/CIT AC 20 MEQ TABLET.EFF NG-TUBE SCH ×4 (07:40→22:00)
[2019-05-11] MEDS: CHLORHEXIDINE GLUCONATE 15 ML CUP MUCOUS MEM SCH ×2 (07:59→20:53)
[2019-05-11] MEDS: BISACODYL 10 MG SUPP RECTAL SCH (07:59)
[2019-05-11] MEDS: PANTOPRAZOLE 40 MG/10 ML VIAL IV SCH (07:59)
[2019-05-11] MEDS: FUROSEMIDE 10 MG/ML 4 ML VIAL IV SCH ×2 (07:59→20:52)
[2019-05-11] MEDS: ANIDULAFUNGIN 100 MG in SODIUM CHLORIDE 0.9% 100 ML IVPB SCH (07:59)
[2019-05-11] MEDS: HEPARIN SODIUM,PORCINE 5,000 UNIT/ML 1 ML VIAL SQ SCH ×2 (07:59→20:52)
--- NOTE | 2019-05-11 08:38 | XR ---
EXAMINATION TYPE: XR chest 1V portable DATE OF EXAM: 05/11/2019 COMPARISON: 05/10/2019 HISTORY: Shortness of breath TECHNIQUE: Single frontal view of the chest is obtained. FINDINGS: Bilateral airspace disease and pleural effusion stable. Feeding tube, tracheostomy tube an d central line stable. No pneumothorax. Tip of the feeding tube appears in the gastric fundus. IMPRESSION: Bilateral airspace disease and pleural effusion stable correlate for pneumonia or CHF.
--- NOTE | 2019-05-11 10:54 | P.PN ---
Subjective Progress Note Date: 05/11/19 This is a 69-year-old male patient of Dr. Gallardo with past medical history of hypertension, hyperlipidemia, COPD, gastroesophageal reflux disease, remote history of tobacco use, obstructive sleep apnea not using CPAP. Patient complains of sudden onset of abdominal pain starting on Tuesday. He also complains of bloating in the abdomen for the past couple months as well as weight loss of 5-10 pounds over the past 3 months. He complains of decreased appetite. He states he has had occasional burgundy stools. He denies any black stools, no diarrhea, no vomiting. He denies any urinary symptoms. Patient states he had his last colonoscopy in 2013 which was normal. Patient presents to [facility] emergency center for evaluation. Abdominal x-ray shows no acute findings. CAT scan of the abdomen and pelvis showed marked thickening of the cecum concerning for malignancy. A nonspecific colitis is not excluded but felt to be less likely. Thickening in the gastric rugae which may be secondary to under distention versus a nonspecific gastritis. EKG is a sinus tachycardia with right bundle branch block, left AFB. WBC 16.7, hemoglobin 14.7, creatinine 0.74. Troponin negative. Amylase and lipase, liver function tests all normal. Urinalysis was clear with 1+ protein. Patient was admitted to the [facility] floor, consult with Dr. Givens, IV fluids, pain medications and Zofran. Plan is for colonoscopy tomorrow. 04/17: Overnight, patient developed acute respiratory failure and was transferred to the intensive care unit and patient placed on BiPAP, currently under care of Dr. Caballero. Patient subsequently intubated and placed on mechanical ventilation. Echocardiogram from yesterday reveals EF 55-60% with moderate concentric left ventricle hypertrophy, trace mitral regurgitation, trace tricuspid regurgitation, no pulmonary hypertension. No pericardial effusion. Chest x-ray shows new right basilar and pneumonic consolidation with diminished inspiration background right hilar and left basilar more patchy edema and or infiltrate felt present. Repeat chest x-ray shows new endotracheal tube with placement described with recommendations to pullback. Mild cardiomegaly and low lung volumes with bilateral hilar edema and/or infiltrate and right basilar consolidation all redemonstrated increasing left basilar infiltrate felt present. Abdomen was more distended and NG tube was placed. Immediate surgical consultation was requested by Dr. Caballero. Dr. Givens attempted bedside colonoscopy but patient was not properly prepped. He is scheduled for CAT scan of the abdomen and pelvis this afternoon at 2:30. NG tube is in place with bile color returned. Family members are in the waiting room and have been updated. 04/18: The patient remains in intensive care unit intubated and on mechanical ventilation. Vent settings have been decreased and no plan for sedation holiday today. He was weaned off norepinephrine this morning. Urine output has been 50-75 mL per hour. Noted that the Goldberg tube is pink but urine is alesia most likely a drug reaction. Patient has had several bowel movements this morning. Antibiotics have been switched to Zosyn and vancomycin. TSH 0.224 with normal free T4 at 1.24. Surgical consultation has been changed to Dr. Aranda per family wishes. 04/19: Patient remains in intensive care unit intubated and on mechanical ventilation. Patient has had increased purulent secretions and underwent reintubation by Dr. Caballero. He also perform bronchoscopy at the bedside and suction 20 ML's purulent material specimen was sent to the lab for cytology and culture. He is concern for ARDS. Patient is continued on Zosyn and vancomycin. He has been off vasopressors since yesterday morning. Patient has had a small amount of liquid stool today much decreased from yesterday. Dr. Aranda is on for surgery at this point. Patient is having minimal output from NG tube. Bowel sounds remain hypoactive. Consult has been added for GI regarding concern for ischemic colitis. 04/20: Patient remains intubated and on mechanical ventilation. Repeat chest x- ray shows continued mild to moderate heart failure. Small to moderate effusions with prominent bibasilar atelectasis and/or consolidation persists. Dr. Aranda is planning for bedside colonoscopy today. Patient was ordered for soapsuds enema last night and this morning. Tube feedings on hold. He has been afebrile, heart rate in the 50s and 60s, blood pressure 141/66. Pulse ox 99%. WBC 8.1, hemoglobin 11.2. Creatinine 0.65. Bronchial washing cytology is pending. Bronchial cultures in progress. Patient will need to start tube feedings or TPN depending on results of colonoscopy scheduled for this afternoon. Patient was given 1 dose of IV Lasix this morning and is diuresing well. Family in the waiting room have been updated. 04/21: Patient remains in the bed, FiO2 40%, PEEP of 6, NG tube has been placed and had taken out the OG tube, fecaloid billous contents are observed in the NG tube, bowel sounds are very diminished today, no bowel movements over the past 24 hours, x-rays of the abdomen will be done to evaluate for progressive bowel o bstruction, patient remains to be afebrile, no leukocytosis bronchial washing cultures shows no normal zander vital signs are stable no hypotensive events, patient is slightly hypotensive on IV Solu-Medrol 40 every 8 04/23: Patient remains intubated and on mechanical ventilation. Dr. Dunham does not plan for attempt at weaning today. He is started him on hydralazine for blood pressure control. Patient has been started on TPN. On Tuesday, patient underwent colonoscopy with Dr. Aranda that revealed reticulosis, tortuous colon and recommends once patient is off ventilation to have barium enema to evaluate the ileocecal valve. Keep NG tube post extubation and hold tube feedings for now. No bowel movement today. 04/24: Patient had a rough night became significantly hypertensive, tachypneic a nd tachycardic. Patient was started on labetalol drip once other options were attempted without success and this was weaned off this morning. Patient also was placed on Nimbex and fentanyl drip which are to be weaned off today. Chest x-ray shows worsening interstitial infiltrates bilaterally and possible interstitial edema. Dr. Dunham increase Lasix to 40 mg IV push every 12 hours. Patient has not had a bowel movement. He remains on TPN and NG tube to suction. Urine output is adequate, tea-colored. Discussed yesterday the possibility of needing a trach and PEG with family members. At this time, Dr. Dunham would like to hold off. 04/25: Patient is still sedated on mechanical ventilation he had failed his weaning parameter today I want to see him when the and the son were in the room door tachycardia with Dr. dao about further plan. Pulmonary and from medicine standpoint patient most likely will need to go to trach no PEG tube can be done for now expected the plan probably for Tuesday and from thereon if more stable can go for his barium enema to come with final diagnosis of the tumor or the finding in the cecum and the large intestine and from thereon further management can be planned. Patient still on multiple drips for pain management let pressure TPN and DT. 04/26: A Chin still on mechanical ventilation, sedated, he is slightly bit awaking when backing off on sedation is still very agitated between having quite bed elevated blood pressure and pulse rate did not succeed on weaning parameter and most likely he will need tracheostomy by tomorrow. PEG tube is negative be possible at this point because of the possibility of mass in the cecum with obstruction cankerous problem if he is more stable can go for barium enema and then PEG tube if there is no cecal mass likely his CEA came back negative. 04/27 patient examined bedside currently intubated D 10. Patient came in with abdominal pain, nausea, vomiting followed by a respiratory failure the next day leading to intubation. Patient is found to be agitated him on ventilator. Currently requiring 75 mics of propofol. On vital evaluation patient had a heart rate of 77 respiratory rate 26 blood pressure 159/62 on clear with pain drip abdominal x-ray this morning shows nonspecific bowel pattern with the bilateral pleural effusion chest x-ray suggestive of pulmonary edema versus consolidation. Patient is currently on Lasix 40 mg IV twice a day and making good urine output 75 mL per hour. Blood cultures so far negative. Bronchoscopy results are negative so far. Plan for tracheostomy placement today. PEG tube is on hold until further information about the cecal mass/colitis. 04/28: Examined at bedside currently on CPAP. Patient was on a sedation holiday for approximately 1 hour sedation has been increased due to fatigue and agitation. Vital signs have been stable blood pressure 151/60 pulse ox a 97% on CPAP pulse rate 98. Patient was able to follow commands however weak. Patient was able to nod head and answer actions appropriately. Family at the bedside discussing plan of care. Continue nutritional support with TPN. 04/29: Patient examined bedside currently on CPAP tolerating. Patient is more alert today compared to yesterday. Patient is able to follow commands movements are weak and nods head appropriately to questions. Patient is on propofol at 10 at this time. She was on a sedation holiday however heart rate and blood pressure increase. Urinary output approximately 60-70 ML's per hour. Patient has not had a bowel movement continues with NG suction approximately 600-700 ML's output in 24 hours. 04/30: Patient is sitting up in bed does appear in less distress today he continues to have the trach in place we're trying to the patient on the ventilator hopefully he will be on trach collar tomorrow morning, family were at the bedside and updated about his situation he will be weaned off sedation completely liver on today he does not appear to be in acute distress at this time, we will hold off transfer the patient until after he weaned off. 05/01: Patient is sitting up in bed he is more awake and more alert is moving all his extremities currently has a trach collar in place, he continued to follow commands appropriately, his family were at the bedside and updated about his current situation. 05/02: Patient is sitting up in bed he continues to have ended in place, he continues to have the trach collar in place, is moving all his extremities, he is feeling better today he has no abdominal pain, he has not passed any gas and he has not had a bowel movement. 05/03: Patient remains in the intensive care unit. He has undergone barium enema today which revealed limited single contrast barium enema. Limited distention of the left side of the colon. There is proximal to mid sigmoid diverticulosis. There he reaches the cecum and refluxes multiple distal ileal loops. There is subtle contour irregularity of the cecum and mucosal lesion or colitis here is difficult to exclude. No frankly constricting lesion is seen. Repeat chest x- ray reveals correlate for congestive heart failure, pneumonia not excluded. Patient has been continued on TPN. Patient has a trach collar place at 28%. He has been hemodynamically stable. Not requiring vasopressors. Temperature max 100.0. White count is 12.7, potassium 3.4, creatinine 0.61. Blood sugars running between 155 and 181. 05/04: Patient remains in intensive care unit. Patient pulled his NG tube out yesterday and Dr Aranda to reevaluate as he did fail swallow evaluation. Speech therapy will reevaluate today as well. Patient is scheduled for PICC line placement today for TPN and central line will then be removed. Abdomen is soft. He has had good urine output. His temperature max 101.2 axillary. He is on IV Tylenol. Patient has worked with PT and OT and up to a chair. He is extremely fatigued following this activity. Patient will have an extended recovery phase. Ativan will be changed to only at bedtime if needed and Toradol added for pain versus Dilaudid. 05/05: Patient has worsened overnight, persistent fevers now high temperature of 10-103, patient was given cooling blanket, patient was seen in ICU, pancultures were obtained, patient's diaphoretic, tachypneic, labored breathing, pulmonary has restarted him on vent support through trach collar, significant tachypnea,. I requested infectious disease to see him, Dr. Kennedy, secondary to decompensation new high gradefevers,, troponins were ordered, EKG to be done, Solu-Medrol 3 doses to be given, patient has palate shallow ulcerations doesn't look viral, right decubitus stage II pressure ulcers, no petechiae or other rash noted,patient is on TPN, no bowel movement since admission per nursing staff 05/06, patient's fever has subsided, cultures from sputum shows presumptive staph aureus, usually in Yeast species, catheter tip Pooja albicans, patient is less tachypneic and is much more comfortable not in distress, steroids has been completed 3 doses, and has some hyperglycemia, on insulin drip at 22-25 units an hour, NPH was given early this morning at 3:00 and will be started on Levemir tonight 8 units starting 3 PM daily, patient is receiving 150 g of glucose per day from TPN. Patient currently is on vancomycin and Zosyn and anidulfungin by Dr. Kennedy. Cardiology has seen the patient, rule out IN with elevated troponin, most likely secondary to severe sepsis 05/07: Patient remains in intensive care unit on mechanical ventilation. Patient has been changed to DO NOT RESUSCITATE over the weekend. Patient has NG tube and we'll start tube feedings and plan. TPN. He has not had a bowel movement since April 19. Insulin drip will be transitioned over to long-acting Levemir and NovoLog scale. 05/08: Patient remains in the intensive care unit, on mechanical ventilation. Patient is still having intermittent fevers. Family history and CODE STATUS back to full code. He is on tube feedings at 13 ML's per hour which is current with no plan to increase this. Abdomen is soft but no bowel sounds. No stool. He is ordered for Dulcolax suppository this morning. KUB will be ordered. P atient failed a sedation holiday today. Urine output has been adequate. 05/09: Chest x-ray today showed diffuse lung disease stable. Feeding tube is extended in the left upper quadrant of the abdomen. Patient is currently off TPN and tube feedings are at 13 ML's per hour. Patient did have a small mucous- type bowel movement. Patient is on a daily Dulcolax suppository regime. We will add Reglan 5 mg 4 times daily. Patient is currently on sedation holiday. Plan is for possible Dobbhoff placement. Urine output has been adequate. Patient is continued on Antimicrobials in the form of Eraxis, Zosyn and vancomycin. Fevers are improving. 05/10, patient remains in ICU, he has been weaned off his propofol for sedation, still requiring Dilaudid for pain, has thick secretions from his trach, still requiring ventilatory support, no bowel movements except for some years, patient has postoperative bowel sounds on today's examination, the polyp is refusing vital HPI 13 mL an hour,stable labs no leukocytosis, hemoglobin 11.2, creatinine 0.5, CO2 of 21, sodium 145phosphorous now elevated at 5.1, dietary following hyperphosphatemia for the vital H PT-max today of 100.2 05/11: Patient remains in the intensive care unit. Patient was on sedation holiday yesterday from 2 PM until 10 PM and do to agitation, hypertension and tachycardia, who was resumed on sedation. Haldol did not seem to help. We will add in scheduled Haldol at 0.5 mg the morning and 1 mg at bedtime and continue the as needed doses well. Sedation holiday in process for today. Patient is awake and able to nod to answer questions. Patient has Dobbhoff in place and feedings are at 13 ML's. Patient has not had a bowel movement but does have good bowel sounds and abdomen soft. Temperature max yesterday was up to 101.1, repeat blood cultures and sputum cultures were obtained. He has been afebrile overnight. Repeat chest x-ray shows bilateral airspace disease and pleural effusion stable correlate for pneumonia or heart failure. Review Of Systems:unable secondary to sedation on vent compared to previous Objective - Vital Signs Vital signs: Vital Signs Temp 98.6 F 05/11/19 04:00 Pulse 96 05/11/19 06:30 Resp 24 05/11/19 06:30 BP 132/85 07/05/19 06:30 Pulse Ox 95 05/11/19 06:30 Intake & Output 05/10/19 05/10/19 05/11/19 06:59 18:59 06:59 Intake Total 2143.478 649 4689.022 Output Total 1650 2070 4055 Balance 493.366 -1317 -2517.978 Weight 105.8 kg 101 kg Intake: IV 936 420 936 Anidulafungin 100 mg In 100 Sodium Chloride 0.9% 100 ml @ 84 mls/hr IVPB DAILY E[facility] Rx#:[id number] Piperacillin-Tazobactam 3 175 100 175 .375 gm In Sodium Chloride 0.9% 100 ml @ 25 mls/hr IVPB Q8H ELA Rx#: [id number] Sodium Chloride 0.9% 1, 260 220 260 000 ml @ 20 mls/hr IV . Q24H [facility] Rx#:[id number] Vancomycin 2,000 mg In 501 501 Sodium Chloride 0.9% 500 ml 500 ml @ 167 mls/hr IVPB Q12H ELA Rx#: [id number] Intake, IV Titration 386.366 100 277.022 Amount Propofol 1,000 mg In 386.366 100 277.022 Empty Bag 1 bag @ Titrate IV .Q0M ELA Rx#: [id number] Tube Feeding 221 143 234 Other 600 90 90 Output: Urine 1650 2070 4055 Other: Voiding Method Indwelling Catheter Indwelling Catheter Indwelling Catheter # Voids 1 1 ABP, PAP, CO, CI - Last Documented Arterial Blood Pressure 102/102 - Exam - Exam sedated on vent, trach collar - EENT Eyes: Present: anicteric sclerae - Neck Neck: Present: normal ROM - Respiratory Respiratory: bilateral: diminished, scattered rhonchi negative: dullness - Cardiovascular Rhythm: regular Heart sounds: normal: S1, S2 - Gastrointestinal General gastrointestinal: Present: decreased bowel sounds, soft - Integumentary Integumentary: Present: decreased turgor, normal, trace I lateral pedal edema - Psychiatric Psychiatric: Present: A&O x's 2, patient sedated (holiday) - Labs CBC & Chem 7: 05/11/19 04:55 05/11/19 04:55 Labs: Abnormal Lab Results - Last 24 Hours (Table) 05/10/19 05/10/19 05/10/19 Range/Units 11:51 18:39 23:45 RBC (4.30-5.90) m/uL Hgb (13.0-17.5) gm/dL Hct (39.0-53.0) % Lymphocytes # (1.0-4.8) k/uL ABG pH (7.35-7.45) ABG pO2 (83-108) mmHg ABG Total CO2 (19-24) mmol/L Sodium (137-145) mmol/L Potassium (3.5-5.1) mmol/L Chloride (98-107) mmol/L BUN (9-20) mg/dL Glucose (74-99) mg/dL POC Glucose (mg/dL) 118 H 122 H 124 H (75-99) mg/dL Phosphorus (2.5-4.5) mg/dL 05/11/19 05/11/19 05/11/19 Range/Units 04:35 04:55 04:55 RBC 4.04 L (4.30-5.90) m/uL Hgb 12.0 L (13.0-17.5) gm/dL Hct 37.5 L (39.0-53.0) % Lymphocytes # 0.8 L (1.0-4.8) k/uL ABG pH 7.46 H (7.35-7.45) ABG pO2 77 L (83-108) mmHg ABG Total CO2 26 H (19-24) mmol/L Sodium 148 H (137-145) mmol/L Potassium 3.4 L (3.5-5.1) mmol/L Chloride 117 H (98-107) mmol/L BUN 25 H (9-20) mg/dL Glucose 119 H (74-99) mg/dL POC Glucose (mg/dL) (75-99) mg/dL Phosphorus 5.3 H (2.5-4.5) mg/dL 05/11/19 Range/Units 05:57 RBC (4.30-5.90) m/uL Hgb (13.0-17.5) gm/dL Hct (39.0-53.0) % Lymphocytes # (1.0-4.8) k/uL ABG pH (7.35-7.45) ABG pO2 (83-108) mmHg ABG Total CO2 (19-24) mmol/L Sodium (137-145) mmol/L Potassium (3.5-5.1) mmol/L Chloride (98-107) mmol/L BUN (9-20) mg/dL Glucose (74-99) mg/dL POC Glucose (mg/dL) 107 H (75-99) mg/dL Phosphorus (2.5-4.5) mg/dL Assessment and Plan Plan: 1. Abdominal pain, possible colitis, possible malignancy of the cecum, neither have been ruled out but CEA is less than 0.5.. Dr. Aranda following general surgery, patient still has no bowel movement since admission. Continue IV fluids, continue Zosyn, vancomycin and Eraxis. Barium study as above. Dulcolax suppository daily. 2. Acute vent dependent respiratory failure with aspiration pneumonia, vent placement 05/04/2019 second episode. Haldol added. 3. Severe sepsis secondary to staph species sputum culture, bacteremia with Pooja albicans, arising from multifocal pneumonia. Continue Zosyn, vancomycin and Eraxis. 4. ARDS secondary to multifocal pneumonia, patient's on Zosyn, vancomycin and Eraxis, consult Dr. Kennedy. 5. Acute hypoxic and hypercapnic respiratory failure with bilateral pulmonary infiltrates and masslike consolidation in the right lower lobe most likely secondary to massive aspiration pneumonia initial episode, acute respiratory distress syndrome. Patient is status post bronchoscopy. Patient is status post trach. 6. Mild COPD exacerbation. Continue DuoNeb treatments every 4 hours as needed. Patient was given 3 doses of steroids 7. Diabetes mellitus type 2, insulin requiring, uncontrolled with hyperglycemia. Metformin on hold. Levemir 8 units daily, NovoLog scale 8. Generalized anxiety disorder. Citalopram 40 mg daily on hold. 9. Abdominal distention secondary to ileus. NG tube. Consult with Dr. Aranda . 10. Obstructive sleep apnea noncompliant with CPAP. 11. Blood culture with coag-negative staph, contamination. Candidemia with positive blood cultures, positive central line catheter tip. Continue Eraxis. 12. Delirium tremens, resolved. 13. Severe protein calorie malnutrition. Continue tube feedings at 13 ML's per hour. Possible Dobbhoff placement for feedings. 14. Sepsis, high-grade fevers noted, pending cultures has been obtained sputum urine and catheter tipfrom 05/04/2019. Consult with Dr. Kennedy 15 Hypertension with episode of accelerated hypertension. Continue Lopressor IV, hydralazine, Vasotec as needed Gastroesophageal reflux disease and GI prophylaxis. Continue Protonix. DVT prophylaxis. Heparin subcu. prognosis guarded, critically ill Discharge plan: To be determined. Impression and plan of care have been directed as dictated by the signing physician. Destini Navarro nurse practitioner acting as scribe for signing physician.
[2019-05-11] MEDS: LACTULOSE 20 GM/30 ML CUP PO SCH ×3 (10:55→20:52)
[2019-05-11] MEDS: HALOPERIDOL LACTATE 5 MG/ML 1 ML VIAL IVP SCH (10:55)
--- NOTE | 2019-05-11 11:40 | P.PN ---
<Gabriela Jaimes A - Last Filed: 05/11/19 11:36> Subjective Progress Note Date: 05/11/19 CHIEF COMPLAINT: Abdominal pain HISTORY OF PRESENT ILLNESS: Patient remains in the ICU. He is on mechanical ventilation. Tube feeding infusing. No recent bowel movement. WBC 7.9. Hemoglobin 12.0. Patient febrile yesterday afternoon 101.1. He is 99.5 this morning. PHYSICAL EXAM: VITAL SIGNS: Reviewed. GENERAL: Well-developed on mechanical ventilation. HEENT: Trach site without bleeding or signs of infection. Dobbhoff catheter noted. No sclera icterus. Extraocular movements grossly intact. Moist buccal mucosa. Head is atraumatic, normocephalic. Neck supple without lymphadenopathy. CHEST: Non-labored respirations and equal bilateral excursions on mechanical ventilation CARDIOVASCULAR: Regular rate with regular rhythm. Palpable 2+ radial pulses. ABDOMEN: Soft. Nondistended. Positive bowel sounds. MUSCULOSKELETAL: No clubbing or cyanosis. No gross deformity of extremities. NEUROLOGIC: No focal or lateralizing signs. PSYCH: Appears more awake. Slightly anxious. Remains on mechanical ventilation. SKIN: Well perfused. Good skin turgor. ASSESSMENT: 1. Abdominal pain 2. Marked wall thickening of cecum, possible malignancy versus nonspecific colitis PLAN: Trach management per Dr. Caballero Continue tube feedings Continue antibiotics. Infectious disease following. Continue daily Dulcolax suppository and Reglan Recommend Lactulose Nurse practitioner note has been reviewed by physician. Signing provider agrees with the documented findings, assessment, and plan of care. Objective - Vital Signs Vital signs: Vital Signs Temp 99.5 F 05/11/19 08:00 Pulse 100 05/11/19 11:12 Resp 24 05/11/19 09:00 BP 150/92 05/11/19 09:00 Pulse Ox 96 05/11/19 09:00 Intake & Output 05/10/19 05/11/19 05/11/19 18:59 06:59 18:59 Intake Total 753 1537.022 284.834 Output Total 4340 4055 150 Balance -1317 -2517.978 134.834 Weight 101 kg 101 kg Intake: IV 420 936 150 Anidulafungin 100 mg In 100 130 Sodium Chloride 0.9% 100 ml @ 84 mls/hr IVPB DAILY [facility] Rx#:[id number] Piperacillin-Tazobactam 3 100 175 .375 gm In Sodium Chloride 0.9% 100 ml @ 25 mls/hr IVPB Q8H [facility] Rx#: [id number] Sodium Chloride 0.9% 1, 220 260 20 000 ml @ 20 mls/hr IV . Q24H [facility] Rx#:[id number] Vancomycin 2,000 mg In 501 Sodium Chloride 0.9% 500 ml 500 ml @ 167 mls/hr IVPB Q12H [facility] Rx#: [id number] Intake, IV Titration 100 277.022 91.834 Amount Propofol 1,000 mg In 100 277.022 91.834 Empty Bag 1 bag @ Titrate IV .Q0M [facility] Rx#: [id number] Tube Feeding 143 234 13 Other 90 90 30 Output: Urine 2070 4055 150 Other: Voiding Method Indwelling Catheter Indwelling Catheter Indwelling Catheter # Voids 1 ABP, PAP, CO, CI - Last Documented Arterial Blood Pressure 102/102 - Labs CBC & Chem 7: 05/11/19 04:55 05/11/19 04:55 Labs: Abnormal Lab Results - Last 24 Hours (Table) 05/10/19 05/10/19 05/10/19 Range/Units 11:51 18:39 23:45 RBC (4.30-5.90) m/uL Hgb (13.0-17.5) gm/dL Hct (39.0-53.0) % Lymphocytes # (1.0-4.8) k/uL ABG pH (7.35-7.45) ABG pO2 (83-108) mmHg ABG Total CO2 (19-24) mmol/L Sodium (137-145) mmol/L Potassium (3.5-5.1) mmol/L Chloride (98-107) mmol/L BUN (9-20) mg/dL Glucose (74-99) mg/dL POC Glucose (mg/dL) 118 H 122 H 124 H (75-99) mg/dL Phosphorus (2.5-4.5) mg/dL 05/11/19 05/11/19 05/11/19 Range/Units 04:35 04:55 04:55 RBC 4.04 L (4.30-5.90) m/uL Hgb 12.0 L (13.0-17.5) gm/dL Hct 37.5 L (39.0-53.0) % Lymphocytes # 0.8 L (1.0-4.8) k/uL ABG pH 7.46 H (7.35-7.45) ABG pO2 77 L (83-108) mmHg ABG Total CO2 26 H (19-24) mmol/L Sodium 148 H (137-145) mmol/L Potassium 3.4 L (3.5-5.1) mmol/L Chloride 117 H (98-107) mmol/L BUN 25 H (9-20) mg/dL Glucose 119 H (74-99) mg/dL POC Glucose (mg/dL) (75-99) mg/dL Phosphorus 5.3 H (2.5-4.5) mg/dL 05/11/19 Range/Units 05:57 RBC (4.30-5.90) m/uL Hgb (13.0-17.5) gm/dL Hct (39.0-53.0) % Lymphocytes # (1.0-4.8) k/uL ABG pH (7.35-7.45) ABG pO2 (83-108) mmHg ABG Total CO2 (19-24) mmol/L Sodium (137-145) mmol/L Potassium (3.5-5.1) mmol/L Chloride (98-107) mmol/L BUN (9-20) mg/dL Glucose (74-99) mg/dL POC Glucose (mg/dL) 107 H (75-99) mg/dL Phosphorus (2.5-4.5) mg/dL Microbiology - Last 24 Hours (Table) 05/10/19 20:00 Sputum Culture - Preliminary Sputum Assessment and Plan (1) Abdominal pain Current Visit: Yes Status: Acute Code(s): R10.9 - UNSPECIFIED ABDOMINAL PAIN SNOMED Code(s): 86097064 (2) Leukocytosis Current Visit: Yes Status: Acute Code(s): D72.829 - ELEVATED WHITE BLOOD CELL COUNT, UNSPECIFIED SNOMED Code(s): 197285035 (3) Respiratory failure Current Visit: Yes Status: Acute Code(s): J96.90 - RESPIRATORY FAILURE, UNSP, UNSP W HYPOXIA OR HYPERCAPNIA SNOMED Code(s): 027948360 (4) Status post tracheostomy Current Visit: Yes Status: Acute Code(s): Z93.0 - TRACHEOSTOMY STATUS SNOMED Code(s): 225665899 <Britt Wen N - Last Filed: 05/11/19 16:23> Subjective As above. Overall prognosis guarded Objective - Vital Signs Vital signs: Vital Signs Temp 99.5 F 05/11/19 08:00 Pulse 110 H 05/11/19 15:59 Resp 28 H 05/11/19 14:00 BP 143/95 05/11/19 14:00 Pulse Ox 94 L 05/11/19 14:00 Intake & Output 05/10/19 05/11/19 05/11/19 18:59 06:59 18:59 Intake Total 753 1537.022 870.834 Output Total 2070 4055 1300 Balance -1317 -2517.978 -429.166 Weight 101 kg 101 kg Intake: IV 420 936 350 Anidulafungin 100 mg In 100 130 Sodium Chloride 0.9% 100 ml @ 84 mls/hr IVPB DAILY [facility] Rx#:[id number] Piperacillin-Tazobactam 3 100 175 100 .375 gm In Sodium Chloride 0.9% 100 ml @ 25 mls/hr IVPB Q8H [facility] Rx#: [id number] Sodium Chloride 0.9% 1, 220 260 120 000 ml @ 20 mls/hr IV . Q24H [facility] Rx#:[id number] Vancomycin 2,000 mg In 501 Sodium Chloride 0.9% 500 ml 500 ml @ 167 mls/hr IVPB Q12H [facility] Rx#: [id number] Intake, IV Titration 100 277.022 91.834 Amount Propofol 1,000 mg In 100 277.022 91.834 Empty Bag 1 bag @ Titrate IV .Q0M [facility] Rx#: [id number] Tube Feeding 143 234 99 Other 90 90 330 Output: Urine 2070 4055 1300 Other: Voiding Method Indwelling Catheter Indwelling Catheter Indwelling Catheter # Voids 1 ABP, PAP, CO, CI - Last Documented Arterial Blood Pressure 102/102 - Labs CBC & Chem 7: 05/11/19 04:55 05/11/19 04:55 Labs: Abnormal Lab Results - Last 24 Hours (Table) 05/10/19 05/10/19 05/11/19 Range/Units 18:39 23:45 04:35 RBC (4.30-5.90) m/uL Hgb (13.0-17.5) gm/dL Hct (39.0-53.0) % Lymphocytes # (1.0-4.8) k/uL ABG pH 7.46 H (7.35-7.45) ABG pO2 77 L (83-108) mmHg ABG Total CO2 26 H (19-24) mmol/L Sodium (137-145) mmol/L Potassium (3.5-5.1) mmol/L Chloride (98-107) mmol/L BUN (9-20) mg/dL Glucose (74-99) mg/dL POC Glucose (mg/dL) 122 H 124 H (75-99) mg/dL Phosphorus (2.5-4.5) mg/dL 05/11/19 05/11/19 05/11/19 Range/Units 04:55 04:55 05:57 RBC 4.04 L (4.30-5.90) m/uL Hgb 12.0 L (13.0-17.5) gm/dL Hct 37.5 L (39.0-53.0) % Lymphocytes # 0.8 L (1.0-4.8) k/uL ABG pH (7.35-7.45) ABG pO2 (83-108) mmHg ABG Total CO2 (19-24) mmol/L Sodium 148 H (137-145) mmol/L Potassium 3.4 L (3.5-5.1) mmol/L Chloride 117 H (98-107) mmol/L BUN 25 H (9-20) mg/dL Glucose 119 H (74-99) mg/dL POC Glucose (mg/dL) 107 H (75-99) mg/dL Phosphorus 5.3 H (2.5-4.5) mg/dL 05/11/19 Range/Units 11:51 RBC (4.30-5.90) m/uL Hgb (13.0-17.5) gm/dL Hct (39.0-53.0) % Lymphocytes # (1.0-4.8) k/uL ABG pH (7.35-7.45) ABG pO2 (83-108) mmHg ABG Total CO2 (19-24) mmol/L Sodium (137-145) mmol/L Potassium (3.5-5.1) mmol/L Chloride (98-107) mmol/L BUN (9-20) mg/dL Glucose (74-99) mg/dL POC Glucose (mg/dL) 138 H (75-99) mg/dL Phosphorus (2.5-4.5) mg/dL Microbiology - Last 24 Hours (Table) 05/10/19 20:00 Gram Stain - Preliminary Sputum Sputum Culture - Preliminary Assessment and Plan (1) Respiratory failure Current Visit: Yes Status: Acute Code(s): J96.90 - RESPIRATORY FAILURE, UNSP, UNSP W HYPOXIA OR HYPERCAPNIA SNOMED Code(s): 319222040 (2) Pyrexia Current Visit: Yes Status: Acute Code(s): R50.9 - FEVER, UNSPECIFIED SN OMED Code(s): 509797081 (3) Status post tracheostomy Current Visit: Yes Status: Acute Code(s): Z93.0 - TRACHEOSTOMY STATUS SNOMED Code(s): 255826795 (4) Leukocytosis Current Visit: Yes Status: Acute Code(s): D72.829 - ELEVATED WHITE BLOOD CELL COUNT, UNSPECIFIED SNOMED Code(s): 058502277
[2019-05-11 11:55] LABS: Glucose,Whole Blood 138 mg/dL (75-99)
[2019-05-11] MEDS: IBUPROFEN ORAL SUSP 100 MG/5 ML CUP PO PRN (12:06)
[2019-05-11] MEDS: SODIUM CHLORIDE 0.9% 1,000 ML IV SCH (12:36)
--- NOTE | 2019-05-11 14:52 | P.PN ---
Subjective Progress Note Date: 05/11/19 On 05/07/2019 I'm seeing this patient for a follow-up. The patient was recently treated and currently is on propofol at 75 g per KG pigmented. The patient obviously decompensated and the patient was found to have positive candidemia and systemic fungemia probably related to line infection. The patient is still on TPN for nutritional support. The blood culture and a triple lumen catheter tip came back positive for Pooja albicans. The urine was also positive for Pooja albicans. The catheter was positive for Pooja albicans. The triple- lumen catheter was removed and the patient currently has a PICC line. Is still on TPN for nutritional support. He is on Eraxis and the patient is currently hemodynamically stable on no pressors. Abdomen is nondistended. No fever. No chills. He has adequate urine output. He also had staph aureus in his sputum and he was placed on vancomycin. He is also on IV Zosyn. ID is on the case. The white cell count this morning is at 10.0. The blood gases this morning showed a pH of 7.36 with a pCO2 of 39 and pO2 127 and this was done while the patient on assist-control mode rate of 26 with a tidal volume of 450 and FiO2 of 50% with a PEEP of 5. Chest x-ray shows some limited infiltration of the right lower lobe. There is a right-sided PICC line catheter in place. No evidence of any pneumothorax. No evidence of any significant pleural effusion. There is interstitial edema. The renal function is stable. The lactic acid level is down to 1.9. Vancomycin trough is a 15.5. On today's evaluation of 05/08/2019 I'm seeing this patient for a follow-up. The patient is still having on and off fever. Repeat blood cultures of been sent in regards to his systemic candidemia and there is also still pending for now. The patient is on the appropriate antifungal coverage. The patient is also on a combination of Zosyn and vancomycin. Note that the patient is hemodynamically stable. No hypotension. He is maintaining his own blood pres sure. As a PICC line right upper extremity. TPN was discontinued yesterday the patient was started on enteral feeding for nutritional support. He is at goal at 13mL an hour of vital high protein. No abdominal distention. The patient seems to be tolerating the tube feeds without any major difficulties. He has not had any bowel movement activity. The patient is still sedated with propofol. We're going to gradually wean off the propofol and awake this patient up. At the same time the patient be kept on an assist-control mode of ventilation. The vent settings is currently at a tidal volume of 450 with a rate of 26 and FiO2 of 50% with a PEEP of 5. The blood gas today showed a pH of 7.4 with a pCO2 of 35 and pO2 of 120. Tracheostomy tube is in place. No significant leaks on the tracheostomy tube. He is producing adequate amount of urine output. No leukocytosis. White second was at 8.9 with a hemoglobin of 11.9. No other significant events otherwise for now. FiO2 was dropped down to 30% based on the above-mentioned blood gases.\ On 05/09/2019 the patient is being seen in follow-up in the intensive care unit. On today's evaluation the patient is being gradually weaned off the sedation. NG tube will be replaced with a Dobbhoff catheter and will continued enteral fee ding for nutritional support. As mentioned earlier, TPN has been discontinued. The patient has not produced any bowel movement activity yet. Meanwhile, the patient is afebrile hemodynamically stable. I checked the ventilator today and for issues related to synchrony and comfort, I changed the vent setting to include a VC plus mode with a tidal volume of 500 and a rate of 24 with a Itime of 0.7 and an FiO2 of 30% with a PEEP of 5. The patient is having some secretions from his tracheostomy tube. We'll ongoing to obtain sputum Gram stain and culture. His chest x-ray is showing some limited atelectatic changes infiltration of the right lung base. His white cell count is at 10.7. The seda olivo has a normal BUN and creatinine. He has developed some hyperchloremic hypernatremia and the patient will need free water supplementation. For now he was going to have a Dobbhoff tube placed and when the process of weaning this patient off the sedation. On 05/10/2019 I'm seeing this patient for a follow-up. The patient is being gradually weaned off sedation. We were able to cut him off completely off propofol. The patient was following some simple commands holding became tachypneic and tachycardic and worked up. It is also had some increased mobility and we felt that a Dobbhoff was removed. I performed a another abdominal x-ray in the tip of the Dobbhoff is seen in the stomach. Will continued enteral feeding for now. In terms of his vent support, the patient remains on an assist-control mode at the rate of 24 with a tidal volume of 500 and FiO2 of 30% with a PEEP of 5. Chest x-ray showing increased pulmonary vascular congestion with evolution of a right lower lobe pulmonary infiltrate. Nevertheless, he is hemodynamically stable. He is having low-grade fevers. He remains on a combination of Zosyn and vancomycin and Eraxis . The tube feeds are running at 13 ML's an hour. He is currently not receiving any form of TPN. Function is stable. He remains in a positive fluid balance and gentle diuresis will be started today. On 05/11/2019 I'm seeing this patient for a follow-up. The patient has still been intensive care unit. He remains on a mechanical ventilator. His sedation was discontinued yesterday and the patient's seems to be much more awake and responsive. Note that overnight, the patient became quite restless and agitated. He was given Haldol for delirium. Subsequently a tube placed on low- dose propofol. I discontinued the propofol this morning. He is still on a mechanical ventilator. Blood gases from today showed a pH of 7.46 with a pCO2 of 36 and pO2 of 77 and this was on FiO2 of 30% and the patient has a tidal volume of 500 with a rate of 24. The patient has a 5 of PEEP. Tracheostomy tube in place. Chest x-ray findings are stable. White cell count is at 7.9. He is still having on and off fever with T-max of 11.1 most recent temperature since early this morning he has been afebrile. The patient is hemodynamically stable. The follow-up blood cultures are still pending for now including the blood. The sputum analysis from 05/05/2019 showed MSSA. The patient is on enteral feeding for nutritional support. No bowel moment activity yet. I'm recommending gradually advancing the tube feeds along with the use of laxative. He has a component of hypernatremia and the patient will be started on free water supplements. Objective - Vital Signs Vital signs: Vital Signs Temp 99.5 F 05/11/19 08:00 Pulse 124 H 05/11/19 14:00 Resp 28 H 05/11/19 14:00 BP 143/95 05/11/19 14:00 Pulse Ox 94 L 05/11/19 14:00 Intake & Output 05/10/19 05/11/19 05/11/19 18:59 06:59 18:59 Intake Total 753 1537.022 870.834 Output Total 2070 4055 1300 Balance -1317 -2517.978 -429.166 Weight 101 kg 101 kg Intake: IV 420 936 350 Anidulafungin 100 mg In 100 130 Sodium Chloride 0.9% 100 ml @ 84 mls/hr IVPB DAILY [facility] Rx#:[id number] Piperacillin-Tazobactam 3 100 175 100 .375 gm In Sodium Chloride 0.9% 100 ml @ 25 mls/hr IVPB Q8H [facility] Rx#: [id number] Sodium Chloride 0.9% 1, 220 260 120 000 ml @ 20 mls/hr IV . Q24H [facility] Rx#:[id number] Vancomycin 2,000 mg In 501 Sodium Chloride 0.9% 500 ml 500 ml @ 167 mls/hr IVPB Q12H [facility] Rx#: [id number] Intake, IV Titration 100 277.022 91.834 Amount Propofol 1,000 mg In 100 277.022 91.834 Empty Bag 1 bag @ Titrate IV .Q0M [facility] Rx#: [id number] Tube Feeding 143 234 99 Other 90 90 330 Output: Urine 2070 4055 1300 Other: Voiding Method Indwelling Catheter Indwelling Catheter Indwelling Catheter # Voids 1 ABP, PAP, CO, CI - Last Documented Arterial Blood Pressure 102/102 - Exam Gen. appearance, comfortable The patient has a tracheostomy tube in place. The patient is more awake and he is following some simple commands Head exam was generally normal. There was no scleral icterus or corneal arcus. Mucous membranes were moist. Neck was supple and without jugular venous distension, thyromegaly, or carotid bruits. Carotids were easily palpable bilaterally. There was no adenopathy. The patient has a tracheostomy tube in place. No evidence of any air leak on a tracheostomy tube stoma. Lungs were clear to auscultation and percussion, and with normal diaphragmatic excursion. No wheezes or rales were noted. Scattered rhonchi heard throughout the lung oneil bilaterally and scattered expiratory wheeze Cardiac exam revealed the PMI to be normally situated and sized. The rhythm was regular and no extrasystoles were noted during several minutes of auscultation. The first and second heart sounds were normal and physiologic splitting of the second heart sound was noted. There were no murmurs, rubs, clicks, or gallops. Abdomen is soft. Nondistended. No direct tenderness rebound tensile guarding at this point in time. Bowel sounds are hypoactive at the present. The patient has no significant abdominal distention. Examination of the extremities revealed easily palpable radial, femoral and pedal pulses. There was no cyanosis, clubbing and there is +1 pitting edema in the lower extremities and upper extremities bilaterally. Neurologically the patient is gradually waking up from sedation and the patient is following some simple commands. Examination of the skin revealed no evidence of significant rashes, suspicious appearing nevi or other concerning lesions. - Labs CBC & Chem 7: 05/11/19 04:55 05/11/19 04:55 Labs: Abnormal Lab Results - Last 24 Hours (Table) 05/10/19 05/10/19 05/11/19 Range/Units 18:39 23:45 04:35 RBC (4.30-5.90) m/uL Hgb (13.0-17.5) gm/dL Hct (39.0-53.0) % Lymphocytes # (1.0-4.8) k/uL ABG pH 7.46 H (7.35-7.45) ABG pO2 77 L (83-108) mmHg ABG Total CO2 26 H (19-24) mmol/L Sodium (137-145) mmol/L Potassium (3.5-5.1) mmol/L Chloride (98-107) mmol/L BUN (9-20) mg/dL Glucose (74-99) mg/dL POC Glucose (mg/dL) 122 H 124 H (75-99) mg/dL Phosphorus (2.5-4.5) mg/dL 05/11/19 05/11/19 05/11/19 Range/Units 04:55 04:55 05:57 RBC 4.04 L (4.30-5.90) m/uL Hgb 12.0 L (13.0-17.5) gm/dL Hct 37.5 L (39.0-53.0) % Lymphocytes # 0.8 L (1.0-4.8) k/uL ABG pH (7.35-7.45) ABG pO2 (83-108) mmHg ABG Total CO2 (19-24) mmol/L Sodium 148 H (137-145) mmol/L Potassium 3.4 L (3.5-5.1) mmol/L Chloride 117 H (98-107) mmol/L BUN 25 H (9-20) mg/dL Glucose 119 H (74-99) mg/dL POC Glucose (mg/dL) 107 H (75-99) mg/dL Phosphorus 5.3 H (2.5-4.5) mg/dL 05/11/19 Range/Units 11:51 RBC (4.30-5.90) m/uL Hgb (13.0-17.5) gm/dL Hct (39.0-53.0) % Lymphocytes # (1.0-4.8) k/uL ABG pH (7.35-7.45) ABG pO2 (83-108) mmHg ABG Total CO2 (19-24) mmol/L Sodium (137-145) mmol/L Potassium (3.5-5.1) mmol/L Chloride (98-107) mmol/L BUN (9-20) mg/dL Glucose (74-99) mg/dL POC Glucose (mg/dL) 138 H (75-99) mg/dL Phosphorus (2.5-4.5) mg/dL Microbiology - Last 24 Hours (Table) 05/10/19 20:00 Gram Stain - Preliminary Sputum Sputum Culture - Preliminary Assessment and Plan Plan: 1 acute hypoxic/hypercapnic respiratory failure in a 69-year-old male patient who presented initially with aspiration pneumonia and subsequently had prolonged ventilator dependent respiratory failure requiring prolonged intubation, mechanical ventilation and subsequent tracheostomy tube insertion. The most recent chest x-ray showing some limited infiltration of the right lung base. In addition to that there is also pulmonary vessel congestion. Nevertheless the patient remains on a 30% FiO2 and PEEP of 5 superimposed pneumonia of the right lower lobe is considered although not certain at this point in time. The chest x-ray from today shows stable findings and there is no worsening in the patient's pulmonary status or oxygenation. Most recent sputum analysis showing MSSA. 2 abdominal distention with possibility of a cecal mass versus inflammatory changes. The colonoscopy was incomplete. Barium enema did not show evidence of any anatomic obstruction although there was concern of a inflammatory changes/tumor in the cecal area and mucosal lesions/colitis/mass cannot be completely excluded. No selin constricting lesion is seen. The patient was on TPN for nutritional support. The patient was switched to enteral feeding and a Dobbhoff catheter will be inserte and the patient continues to receive enteral feeding with vital high protein at 13 mL an hour. On today's evaluation the patient is still not producing any sputum and the patient will be monitored very closely in the tube feeds will be gradually advanced. He'll be also started on laxatives. 3 sepsis secondary to systemic candidemia with Pooja albicans growing in the catheter tip in the blood and the urine. Currently on a Eraxis. The catheter was removed and the patient was given a PICC line. He is hemodynamically stable on no pressors. Staph aureus/MSSA was again cultured in the sputum. He is also on a combination of Zosyn and vancomycin. The patient unfortunately continues to have some episodes of low-grade fever and the repeat culture been negative thus far. 4 obesity. 5 obstructive sleep apnea 6 hypertension 7 hyperlipidemia 8 Chronic back pain 9 alcoholism 10 hypotension recovered and the patient is currently on no pressors. 11 MSSA in the sputum and the patient is currently taking a combination of Zosyn and vancomycin. 12 episodic fever secondary to systemic fungemia. The patient is receiving IV Tylenol for that. PLAN Keep the patient also sedation. He uses Haldol for agitation and delirium. He is following some simple commands this morning and the patient is currently off propofol. He is synchronous with the mechanical ventilator. Chest x-ray findings are stable. Hemodynamically stable. History of having low-grade fever. Repeat culture is still pending for now. Broad-spectrum antibiotic she'll be kept unchanged. The patient will have his enteral feeding advanced gradually. Add free water supplements. Add lactulose. Continue Dulcolax suppositories. Possible select specialty transferred later stage once is a bit more stable and once we are sure that the patient is able to tolerate enteral feeding. This evaluation was done and more than 30 minutes. Time with Patient: Greater than 30
[2019-05-11 18:01] LABS: Glucose,Whole Blood 128 mg/dL (75-99)
[2019-05-11] MEDS: INSULIN DETEMIR (LEVEMIR) 100 UNIT/ML SYR SQ SCH (20:51)
[2019-05-11 20:54] LABS: Glucose,Whole Blood 139 mg/dL (75-99)
[2019-05-11] MEDS ORDERED: HALOPERIDOL LACTATE 5 MG/ML 1 ML VIAL IVP SCH (21:00)
[2019-05-11 22:37] LABS: ABG Base Excess 3.1 mmol/L; ABG HCO3 27 mmol/L (21-25); ABG Oxygen Saturation 99.9 % (94-97); ABG PCO2 40 mmHg (35-45); ABG PH 7.44 (7.35-7.45); ABG PO2 360 mmHg (83-108); ABG TCO2 28 mmol/L (19-24)
[2019-05-11 22:43] LABS: Allen Test Performed? yes
[2019-05-12] MEDS: HALOPERIDOL LACTATE 5 MG/ML 1 ML VIAL IVP PRN (00:03)
[2019-05-12 00:04] LABS: Glucose,Whole Blood 144 mg/dL (75-99)
[2019-05-12] MEDS ORDERED: ADENOSINE 3 MG/ML 2 ML VIAL IVP STA (00:06)
[2019-05-12] MEDS ORDERED: DILTIAZEM DRIP BOLUS FROM BAG 1 MG SOLN IV ONE (00:13)
[2019-05-12] MEDS ORDERED: DILTIAZEM 125 MG in SODIUM CHLORIDE 0.9% 100 ML IV SCH (00:15)
[2019-05-12] MEDS: METOCLOPRAMIDE 5 MG/ML 2 ML VIAL IVP SCH ×5 (00:53→23:58)
[2019-05-12] MEDS: ARTIFICIAL TEARS-HYPROMELLOSE DROPS 15 ML BTL BOTH EYES SCH ×7 (00:54→23:59)
[2019-05-12] MEDS: INSULIN ASPART (NovoLOG) 100 UNIT/ML VIAL SQ SCH ×5 (00:56→23:54)
[2019-05-12 01:10] LABS: Glucose,Whole Blood 149 mg/dL (75-99)
[2019-05-12] MEDS: IPRATROPIUM-ALBUTEROL 3 ML NEB INHALATION SCH ×6 (02:59→23:05)
[2019-05-12] MEDS: HYDROmorphone 0.5 MG/0.5 ML SYRINGE IVP PRN ×6 (03:14→23:58)
[2019-05-12] MEDS: PROPOFOL 1,000 MG in EMPTY BAG 1 BAG IV SCH ×4 (03:56→22:54)
[2019-05-12] MEDS: VANCOMYCIN 1,750 MG in SODIUM CHLORIDE 0.9% 500 ML 500 ML IVPB SCH (03:57)
[2019-05-12] MEDS: PIPERACILLIN-TAZOBACTAM 3.375 GM in SODIUM CHLORIDE 0.9% 100 ML IVPB SCH ×2 (03:59→13:10)
[2019-05-12 04:33] LABS: ABG Base Excess 3.3 mmol/L; ABG HCO3 27 mmol/L (21-25); ABG Oxygen Saturation 93.9 % (94-97); ABG PCO2 37 mmHg (35-45); ABG PH 7.47 (7.35-7.45); ABG PO2 70 mmHg (83-108); ABG TCO2 28 mmol/L (19-24); Allen Test Performed? Yes
[2019-05-12 05:13] LABS: Basophils % (A) 1 %; Eosinophils # (A) 0.3 k/uL (0-0.7); Eosinophils % (A) 4 %; HCT 38.8 % (39.0-53.0); HGB 12.4 gm/dL (13.0-17.5); Hypochromasia Slight; Lymphocytes # (A) 0.7 k/uL (1.0-4.8); Lymphocytes % (A) 10 %; MCH 29.9 pg (25.0-35.0); MCHC 31.9 g/dL (31.0-37.0); MCV 93.5 fL (80.0-100.0); Mean Platelet Volume 8.2; Monocytes # (A) 0.3 k/uL (0-1.0); Monocytes % (A) 4 %; Neutrophils # (A) 6.1 k/uL (1.3-7.7); Neutrophils % (A) 81 %; Platelet Count 307 k/uL (150-450); RBC 4.14 m/uL (4.30-5.90); RDW 15.7 % (11.5-15.5); WBC 7.6 k/uL (3.8-10.6)
[2019-05-12 05:20] LABS: African American GFR (CKD) >90 (>60 ml/min/1.73 sqM); Anion Gap 10 mmol/L; Blood Urea Nitrogen 33 mg/dL (9-20); Calcium 10.3 mg/dL (8.4-10.2); Carbon Dioxide 24 mmol/L (22-30); Chloride 118 mmol/L (98-107); Glucose 133 mg/dL (74-99); Potassium 2.8 mmol/L (3.5-5.1); Sodium 152 mmol/L (137-145)
[2019-05-12] MEDS ORDERED: POTASSIUM CHLORIDE 20 MEQ in WATER FOR INJECTION 1 100ML.BAG IVPB SCH (05:30)
[2019-05-12 05:43] LABS: Glucose,Whole Blood 115 mg/dL (75-99)
[2019-05-12] MEDS ORDERED: POTASSIUM CHLORIDE ER 20 MEQ TAB.ER PO SCH (06:00)
[2019-05-12] MEDS: POTASSIUM BICARBONATE/CIT AC 20 MEQ TABLET.EFF PO SCH ×3 (06:29→09:01)
--- NOTE | 2019-05-12 07:16 | XR ---
EXAMINATION TYPE: XR abdomen 1V DATE OF EXAM: 05/12/2019 COMPARISON: 05/10/2019 HISTORY: Constipation TECHNIQUE: One view abdominal series FINDINGS: The osseous structures are intact. The bowel gas pattern is nonspecific. Contrast is seen throughout the colon to the level degenerative changes spine. Upper abdomen is not entirely included the exam. A few prominent small bowel loops are noted in the midabdomen. Dobbhoff tube seen in the left upper q uadrant IMPRESSION: 1. Nonspecific abdomen with contrast seen throughout the colon to the level of the rectum.
--- NOTE | 2019-05-12 07:21 | XR ---
EXAMINATION TYPE: XR chest 1V portable DATE OF EXAM: 05/12/2019 COMPARISON: 05/11/2019 HISTORY: Shortness of breath TECHNIQUE: Single frontal view of the chest is obtained. FINDINGS: Bilateral airspace disease and pleural effusion stable. Feeding tube, tracheostomy tube an d central line stable. No pneumothorax. Tip of the feeding tube appears in the gastric fundus. IMPRESSION: Bilateral airspace disease and pleural effusion stable correlate for pneumonia or CHF.
[2019-05-12] MEDS: FUROSEMIDE 10 MG/ML 4 ML VIAL IV SCH ×2 (09:02→20:14)
[2019-05-12] MEDS: PANTOPRAZOLE 40 MG/10 ML VIAL IV SCH (09:02)
[2019-05-12] MEDS: HEPARIN SODIUM,PORCINE 5,000 UNIT/ML 1 ML VIAL SQ SCH ×2 (09:02→20:14)
[2019-05-12] MEDS: CHLORHEXIDINE GLUCONATE 15 ML CUP MUCOUS MEM SCH ×2 (09:02→20:14)
--- NOTE | 2019-05-12 09:09 | P.PN ---
Subjective Progress Note Date: 05/12/19 CHIEF COMPLAINT: Acute respiratory distress and Pyrexia HISTORY OF PRESENT ILLNESS: The patient is a 69-year-old male with hospitalization over 3 weeks. During this hospitalization had trach placed for severe pneumonia. He is having moderate bowel movements from cathartics. Fever curve has improved from 103 degree Fahrenheit to 100.2. He is on tube feeds. ROS: Having bowel movements. No blood in stools. Still having fevers. PHYSICAL EXAM: VITAL SIGNS: Reviewed CONSTITUTIONAL: Well developed and in no acute distress. EYES: Conjuctivae without sclera icterus. Extraocular movements grossly intact. HEAD, EARS, NOSE, THROAT: Dry buccal mucosa. Head is atraumatic, normocephalic. Hears conversational speech. No nasal drainage. NECK: Supple. Tracheostomy intact. RESPIRATORY: Non-labored respirations and equal bilateral excursions. CARDIOVASCULAR: Palpable 2+ radial pulses. Regular rate. ABDOMEN: Soft. No peritonitis. MUSCULOSKELETAL: No gross deformity of the lower extremities noted. No clubbing. No cyanosis. SKIN: Good skin turgor. Well perfused. NEUROLOGIC: No focal or lateralizing signs. PSYCH: Alert to person. CLINCAL LABS: White blood cell down from over 14,000 to 7,000, normal ASSESSMENT: 1. Acute respiratory distress 2. Status post tracheostomy 3. History of pneumonia. 4. Fungemia and bacteremia PLAN: 1. Continue current ICU care. 2. Continue tube feeds. Objective - Vital Signs Vital signs: Vital Signs Temp 99.5 F 05/12/19 04:00 Pulse 88 05/12/19 07:22 Resp 24 05/12/19 07:00 BP 128/77 05/12/19 07:00 Pulse Ox 98 05/12/19 07:00 Intake & Output 05/11/19 05/12/19 05/12/19 18:59 06:59 18:59 Intake Total 5914.155 7368.72 Output Total 1870 2145 Balance 0.834 207.72 Weight 101 kg 98.7 kg Intake: IV 950 990 Anidulafungin 100 mg In 130 Sodium Chloride 0.9% 100 ml @ 84 mls/hr IVPB DAILY [facility] Rx#:[id number] Piperacillin-Tazobactam 3 100 200 .375 gm In Sodium Chloride 0.9% 100 ml @ 25 mls/hr IVPB Q8H [facility] Rx#: [id number] Potassium Chloride 20 meq 100 In Water For Injection 1 100ml.bag @ 50 mls/hr IVPB Q2H [facility] Rx#: [id number] Sodium Chloride 0.9% 1, 220 190 000 ml @ 20 mls/hr IV . Q24H [facility] Rx#:[id number] Vancomycin 1,750 mg In 500 Sodium Chloride 0.9% 500 ml 500 ml @ 167 mls/hr IVPB Q12H [facility] Rx#: [id number] Vancomycin 2,000 mg In 500 Sodium Chloride 0.9% 500 ml 500 ml @ 167 mls/hr IVPB Q12H [facility] Rx#: [id number] Intake, IV Titration 91.834 72.72 Amount Propofol 1,000 mg In 91.834 72.72 Empty Bag 1 bag @ Titrate IV .Q0M [facility] Rx#: [id number] Tube Feeding 199 390 Other 630 900 Output: Urine 1870 2145 Other: Voiding Method Indwelling Catheter Indwelling Catheter # Bowel Movements 2 ABP, PAP, CO, CI - Last Documented Arterial Blood Pressure 102/102 - Labs CBC & Chem 7: 05/12/19 04:33 05/12/19 04:33 Labs: Abnormal Lab Results - Last 24 Hours (Table) 05/11/19 05/11/19 05/11/19 Range/Units 11:51 17:59 18:46 RBC (4.30-5.90) m/uL Hgb (13.0-17.5) gm/dL Hct (39.0-53.0) % RDW (11.5-15.5) % Lymphocytes # (1.0-4.8) k/uL ABG pH (7.35-7.45) ABG pO2 (83-108) mmHg ABG HCO3 (21-25) mmol/L ABG Total CO2 (19-24) mmol/L ABG O2 Saturation (94-97) % Sodium (137-145) mmol/L Potassium 3.1 L (3.5-5.1) mmol/L Chloride (98-107) mmol/L BUN (9-20) mg/dL Glucose (74-99) mg/dL POC Glucose (mg/dL) 138 H 128 H (75-99) mg/dL Calcium (8.4-10.2) mg/dL 05/11/19 05/11/19 05/11/19 Range/Units 20:50 22:33 23:50 RBC (4.30-5.90) m/uL Hgb (13.0-17.5) gm/dL Hct (39.0-53.0) % RDW (11.5-15.5) % Lymphocytes # (1.0-4.8) k/uL ABG pH (7.35-7.45) ABG pO2 360 H (83-108) mmHg ABG HCO3 27 H (21-25) mmol/L ABG Total CO2 28 H (19-24) mmol/L ABG O2 Saturation 99.9 H (94-97) % Sodium (137-145) mmol/L Potassium (3.5-5.1) mmol/L Chloride (98-107) mmol/L BUN (9-20) mg/dL Glucose (74-99) mg/dL POC Glucose (mg/dL) 139 H 144 H (75-99) mg/dL Calcium (8.4-10.2) mg/dL 05/12/19 05/12/19 05/12/19 Range/Units 00:56 04:32 04:33 RBC 4.14 L (4.30-5.90) m/uL Hgb 12.4 L (13.0-17.5) gm/dL Hct 38.8 L (39.0-53.0) % RDW 15.7 H (11.5-15.5) % Lymphocytes # 0.7 L (1.0-4.8) k/uL ABG pH 7.47 H (7.35-7.45) ABG pO2 70 L (83-108) mmHg ABG HCO3 27 H (21-25) mmol/L ABG Total CO2 28 H (19-24) mmol/L ABG O2 Saturation 93.9 L (94-97) % Sodium (137-145) mmol/L Potassium (3.5-5.1) mmol/L Chloride (98-107) mmol/L BUN (9-20) mg/dL Glucose (74-99) mg/dL POC Glucose (mg/dL) 149 H (75-99) mg/dL Calcium (8.4-10.2) mg/dL 05/12/19 05/12/19 Range/Units 04:33 05:40 RBC (4.30-5.90) m/uL Hgb (13.0-17.5) gm/dL Hct (39.0-53.0) % RDW (11.5-15.5) % Lymphocytes # (1.0-4.8) k/uL ABG pH (7.35-7.45) ABG pO2 (83-108) mmHg ABG HCO3 (21-25) mmol/L ABG Total CO2 (19-24) mmol/L ABG O2 Saturation (94-97) % Sodium 152 H (137-145) mmol/L Potassium 2.8 L (3.5-5.1) mmol/L Chloride 118 H (98-107) mmol/L BUN 33 H (9-20) mg/dL Glucose 133 H (74-99) mg/dL POC Glucose (mg/dL) 115 H (75-99) mg/dL Calcium 10.3 H (8.4-10.2) mg/dL Microbiology - Last 24 Hours (Table) 05/10/19 15:21 Blood Culture - Preliminary Blood No Growth after 24 hours 05/10/19 15:15 Blood Culture - Preliminary Blood No Growth after 24 hours 05/10/19 20:00 Gram Stain - Preliminary Sputum Sputum Culture - Preliminary Assessment and Plan (1) Respiratory failure Current Visit: Yes Status: Acute Code(s): J96.90 - RESPIRATORY FAILURE, U NSP, UNSP W HYPOXIA OR HYPERCAPNIA SNOMED Code(s): 672196437 (2) Pyrexia Current Visit: Yes Status: Acute Code(s): R50.9 - FEVER, UNSPECIFIED SNOMED Code(s): 183445750 (3) Status post tracheostomy Current Visit: Yes Status: Acute Code(s): Z93.0 - TRACHEOSTOMY STATUS SNOMED Code(s): 738022428 (4) Leukocytosis Current Visit: Yes Status: Acute Code(s): D72.829 - ELEVATED WHITE BLOOD CELL COUNT, UNSPECIFIED SNOMED Code(s): 820897086
[2019-05-12] MEDS: ANIDULAFUNGIN 100 MG in SODIUM CHLORIDE 0.9% 100 ML IVPB SCH (10:00)
[2019-05-12] MEDS: DEXTROSE 5% IN WATER 1,000 ML IV SCH ×2 (10:34→22:54)
--- NOTE | 2019-05-12 12:40 | P.PN ---
Subjective Progress Note Date: 05/12/19 On 05/07/2019 I'm seeing this patient for a follow-up. The patient was recently treated and currently is on propofol at 75 g per KG pigmented. The patient obviously decompensated and the patient was found to have positive candidemia and systemic fungemia probably related to line infection. The patient is still on TPN for nutritional support. The blood culture and a triple lumen catheter tip came back positive for Pooja albicans. The urine was also positive for Pooja albicans. The catheter was positive for Pooja albicans. The triple- lumen catheter was removed and the patient currently has a PICC line. Is still on TPN for nutritional support. He is on Eraxis and the patient is currently hemodynamically stable on no pressors. Abdomen is nondistended. No fever. No chills. He has adequate urine output. He also had staph aureus in his sputum and he was placed on vancomycin. He is also on IV Zosyn. ID is on the case. The white cell count this morning is at 10.0. The blood gases this morning showed a pH of 7.36 with a pCO2 of 39 and pO2 127 and this was done while the patient on assist-control mode rate of 26 with a tidal volume of 450 and FiO2 of 50% with a PEEP of 5. Chest x-ray shows some limited infiltration of the right lower lobe. There is a right-sided PICC line catheter in place. No evidence of any pneumothorax. No evidence of any significant pleural effusion. There is interstitial edema. The renal function is stable. The lactic acid level is down to 1.9. Vancomycin trough is a 15.5. On today's evaluation of 05/08/2019 I'm seeing this patient for a follow-up. The patient is still having on and off fever. Repeat blood cultures of been sent in regards to his systemic candidemia and there is also still pending for now. The patient is on the appropriate antifungal coverage. The patient is also on a combination of Zosyn and vancomycin. Note that the patient is hemodynamically stable. No hypotension. He is maintaining his own blood pres sure. As a PICC line right upper extremity. TPN was discontinued yesterday the patient was started on enteral feeding for nutritional support. He is at goal at 13mL an hour of vital high protein. No abdominal distention. The patient seems to be tolerating the tube feeds without any major difficulties. He has not had any bowel movement activity. The patient is still sedated with propofol. We're going to gradually wean off the propofol and awake this patient up. At the same time the patient be kept on an assist-control mode of ventilation. The vent settings is currently at a tidal volume of 450 with a rate of 26 and FiO2 of 50% with a PEEP of 5. The blood gas today showed a pH of 7.4 with a pCO2 of 35 and pO2 of 120. Tracheostomy tube is in place. No significant leaks on the tracheostomy tube. He is producing adequate amount of urine output. No leukocytosis. White second was at 8.9 with a hemoglobin of 11.9. No other significant events otherwise for now. FiO2 was dropped down to 30% based on the above-mentioned blood gases.\ On 05/09/2019 the patient is being seen in follow-up in the intensive care unit. On today's evaluation the patient is being gradually weaned off the sedation. NG tube will be replaced with a Dobbhoff catheter and will continued enteral fee ding for nutritional support. As mentioned earlier, TPN has been discontinued. The patient has not produced any bowel movement activity yet. Meanwhile, the patient is afebrile hemodynamically stable. I checked the ventilator today and for issues related to synchrony and comfort, I changed the vent setting to include a VC plus mode with a tidal volume of 500 and a rate of 24 with a Itime of 0.7 and an FiO2 of 30% with a PEEP of 5. The patient is having some secretions from his tracheostomy tube. We'll ongoing to obtain sputum Gram stain and culture. His chest x-ray is showing some limited atelectatic changes infiltration of the right lung base. His white cell count is at 10.7. The seda olivo has a normal BUN and creatinine. He has developed some hyperchloremic hypernatremia and the patient will need free water supplementation. For now he was going to have a Dobbhoff tube placed and when the process of weaning this patient off the sedation. On 05/10/2019 I'm seeing this patient for a follow-up. The patient is being gradually weaned off sedation. We were able to cut him off completely off propofol. The patient was following some simple commands holding became tachypneic and tachycardic and worked up. It is also had some increased mobility and we felt that a Dobbhoff was removed. I performed a another abdominal x-ray in the tip of the Dobbhoff is seen in the stomach. Will continued enteral feeding for now. In terms of his vent support, the patient remains on an assist-control mode at the rate of 24 with a tidal volume of 500 and FiO2 of 30% with a PEEP of 5. Chest x-ray showing increased pulmonary vascular congestion with evolution of a right lower lobe pulmonary infiltrate. Nevertheless, he is hemodynamically stable. He is having low-grade fevers. He remains on a combination of Zosyn and vancomycin and Eraxis . The tube feeds are running at 13 ML's an hour. He is currently not receiving any form of TPN. Function is stable. He remains in a positive fluid balance and gentle diuresis will be started today. On 05/11/2019 I'm seeing this patient for a follow-up. The patient has still been intensive care unit. He remains on a mechanical ventilator. His sedation was discontinued yesterday and the patient's seems to be much more awake and responsive. Note that overnight, the patient became quite restless and agitated. He was given Haldol for delirium. Subsequently a tube placed on low- dose propofol. I discontinued the propofol this morning. He is still on a mechanical ventilator. Blood gases from today showed a pH of 7.46 with a pCO2 of 36 and pO2 of 77 and this was on FiO2 of 30% and the patient has a tidal volume of 500 with a rate of 24. The patient has a 5 of PEEP. Tracheostomy tube in place. Chest x-ray findings are stable. White cell count is at 7.9. He is still having on and off fever with T-max of 11.1 most recent temperature since early this morning he has been afebrile. The patient is hemodynamically stable. The follow-up blood cultures are still pending for now including the blood. The sputum analysis from 05/05/2019 showed MSSA. The patient is on enteral feeding for nutritional support. No bowel moment activity yet. I'm recommending gradually advancing the tube feeds along with the use of laxative. He has a component of hypernatremia and the patient will be started on free water supplements. On 05/12/2019 I'm seeing this patient. The patient is in the intensive care unit. He was given a sedation holiday yesterday. He was also given a prolonged breathing trial a pressure support of 5 and a PEEP of 5. Addendum of the day the patient went into SVT. He was given adenosine. He converted to sinus rhythm. He went back into a SVT. He was started on Cardizem drip and he was converted back into sinus rhythm. He is currently rhythm is sinus and he is hemodynamically stable without any pressors. Propofol will be discontinued again. He is on a mechanical ventilator. Currently is on assist control mode of ventilation. His tidal volumes of 500 with an FiO2 of 30% and PEEP of 5. Chest x-ray is unchanged. Atelectatic changes and infiltration of the right lung bases still present. Tracheostomy tube is in place. The patient has produced stools. In fact his having liqudy stool and the lack is this will be all discontinued. Continue the tube feeds for now. TPN has been discontinued. He is having low-grade fever. I'm going to remove the PICC line and give the patient peripheral lines only. Repeat blood cultures are negative for now. He is on Lasix 40 mg every 12 hours. Less edematous in the upper and lower extremities. He is on examination of Zosyn and vancomycin and Eraxis. I'm going to discontinue the vancomycin for now. Objective - Vital Signs Vital signs: Vital Signs Temp 99.5 F 05/12/19 04:00 Pulse 90 05/12/19 11:38 Resp 24 05/12/19 07:00 BP 128/77 05/12/19 07:00 Pulse Ox 98 05/12/19 07:00 Intake & Output 05/11/19 05/12/19 05/12/19 18:59 06:59 18:59 Intake Total 7989.754 0751.72 1075 Output Total 1870 2145 1755 Balance 0.834 207.72 -680 Weight 101 kg 98.7 kg Intake: IV 950 990 180 Anidulafungin 100 mg In 130 100 Sodium Chloride 0.9% 100 ml @ 84 mls/hr IVPB DAILY [facility] Rx#:[id number] Piperacillin-Tazobactam 3 100 200 .375 gm In Sodium Chloride 0.9% 100 ml @ 25 mls/hr IVPB Q8H [facility] Rx#: [id number] Potassium Chloride 20 meq 100 In Water For Injection 1 100ml.bag @ 50 mls/hr IVPB Q2H [facility] Rx#: [id number] Sodium Chloride 0.9% 1, 220 190 80 000 ml @ 20 mls/hr IV . Q24H [facility] Rx#:[id number] Vancomycin 1,750 mg In 500 Sodium Chloride 0.9% 500 ml 500 ml @ 167 mls/hr IVPB Q12H [facility] Rx#: [id number] Vancomycin 2,000 mg In 500 Sodium Chloride 0.9% 500 ml 500 ml @ 167 mls/hr IVPB Q12H [facility] Rx#: [id number] Intake, IV Titration 91.834 72.72 325 Amount Dextrose 5% in Water 1, 225 000 ml @ 75 mls/hr IV . [id number] [facility] Rx#:[id number] Propofol 1,000 mg In 91.834 72.72 100 Empty Bag 1 bag @ Titrate IV .Q0M [facility] Rx#: [id number] Tube Feeding 199 390 210 Other 630 900 360 Output: Urine 1870 2145 1755 Other: Voiding Method Indwelling Catheter Indwelling Catheter Indwelling Catheter # Bowel Movements 2 ABP, PAP, CO, CI - Last Documented Arterial Blood Pressure 102/102 - Exam Gen. appearance, comfortable The patient has a tracheostomy tube in place. The patient is more awake and he is following some simple commands Head exam was generally normal. There was no scleral icterus or corneal arcus. Mucous membranes were moist. Neck was supple and without jugular venous distension, thyromegaly, or carotid bruits. Carotids were easily palpable bilaterally. There was no adenopathy. The patient has a tracheostomy tube in place. No evidence of any air leak on a tracheostomy tube stoma. Lungs were clear to auscultation and percussion, and with normal diaphragmatic excursion. No wheezes or rales were noted. Scattered rhonchi heard throughout the lung oneil bilaterally and scattered expiratory wheeze Cardiac exam revealed the PMI to be normally situated and sized. The rhythm was regular and no extrasystoles were noted during several minutes of auscultation. The first and second heart sounds were normal and physiologic splitting of the second heart sound was noted. There were no murmurs, rubs, clicks, or gallops. Abdomen is soft. Nondistended. No direct tenderness rebound tensile guarding at this point in time. Bowel sounds are hypoactive at the present. The patient has no significant abdominal distention. Examination of the extremities revealed easily palpable radial, femoral and pedal pulses. There was no cyanosis, clubbing and there is +1 pitting edema in the lower extremities and upper extremities bilaterally. Neurologically the patient is gradually more arousable and he is following simple commands Examination of the skin revealed no evidence of significant rashes, suspicious appearing nevi or other concerning lesions. He is got edema in the lower extremities bilaterally. - Labs CBC & Chem 7: 05/12/19 04:33 05/12/19 04:33 Labs: Abnormal Lab Results - Last 24 Hours (Table) 05/11/19 05/11/19 05/11/19 Range/Units 17:59 18:46 20:50 RBC (4.30-5.90) m/uL Hgb (13.0-17.5) gm/dL Hct (39.0-53.0) % RDW (11.5-15.5) % Lymphocytes # (1.0-4.8) k/uL ABG pH (7.35-7.45) ABG pO2 (83-108) mmHg ABG HCO3 (21-25) mmol/L ABG Total CO2 (19-24) mmol/L ABG O2 Saturation (94-97) % Sodium (137-145) mmol/L Potassium 3.1 L (3.5-5.1) mmol/L Chloride (98-107) mmol/L BUN (9-20) mg/dL Glucose (74-99) mg/dL POC Glucose (mg/dL) 128 H 139 H (75-99) mg/dL Calcium (8.4-10.2) mg/dL 05/11/19 05/11/19 05/12/19 Range/Units 22:33 23:50 00:56 RBC (4.30-5.90) m/uL Hgb (13.0-17.5) gm/dL Hct (39.0-53.0) % RDW (11.5-15.5) % Lymphocytes # (1.0-4.8) k/uL ABG pH (7.35-7.45) ABG pO2 360 H (83-108) mmHg ABG HCO3 27 H (21-25) mmol/L ABG Total CO2 28 H (19-24) mmol/L ABG O2 Saturation 99.9 H (94-97) % Sodium (137-145) mmol/L Potassium (3.5-5.1) mmol/L Chloride (98-107) mmol/L BUN (9-20) mg/dL Glucose (74-99) mg/dL POC Glucose (mg/dL) 144 H 149 H (75-99) mg/dL Calcium (8.4-10.2) mg/dL 05/12/19 05/12/19 05/12/19 Range/Units 04:32 04:33 04:33 RBC 4.14 L (4.30-5.90) m/uL Hgb 12.4 L (13.0-17.5) gm/dL Hct 38.8 L (39.0-53.0) % RDW 15.7 H (11.5-15.5) % Lymphocytes # 0.7 L (1.0-4.8) k/uL ABG pH 7.47 H (7.35-7.45) ABG pO2 70 L (83-108) mmHg ABG HCO3 27 H (21-25) mmol/L ABG Total CO2 28 H (19-24) mmol/L ABG O2 Saturation 93.9 L (94-97) % Sodium 152 H (137-145) mmol/L Potassium 2.8 L (3.5-5.1) mmol/L Chloride 118 H (98-107) mmol/L BUN 33 H (9-20) mg/dL Glucose 133 H (74-99) mg/dL POC Glucose (mg/dL) (75-99) mg/dL Calcium 10.3 H (8.4-10.2) mg/dL 05/12/19 Range/Units 05:40 RBC (4.30-5.90) m/uL Hgb (13.0-17.5) gm/dL Hct (39.0-53.0) % RDW (11.5-15.5) % Lymphocytes # (1.0-4.8) k/uL ABG pH (7.35-7.45) ABG pO2 (83-108) mmHg ABG HCO3 (21-25) mmol/L ABG Total CO2 (19-24) mmol/L ABG O2 Saturation (94-97) % Sodium (137-145) mmol/L Potassium (3.5-5.1) mmol/L Chloride (98-107) mmol/L BUN (9-20) mg/dL Glucose (74-99) mg/dL POC Glucose (mg/dL) 115 H (75-99) mg/dL Calcium (8.4-10.2) mg/dL Microbiology - Last 24 Hours (Table) 05/10/19 15:21 Blood Culture - Preliminary Blood No Growth after 24 hours 05/10/19 15:15 Blood Culture - Preliminary Blood No Growth after 24 hours 05/10/19 20:00 Gram Stain - Preliminary Sputum Sputum Culture - Preliminary Assessment and Plan Plan: 1 acute hypoxic/hypercapnic respiratory failure in a 69-year-old male patient who presented initially with aspiration pneumonia and subsequently had prolonged ventilator dependent respiratory failure requiring prolonged intubation, mechanical ventilation and subsequent tracheostomy tube insertion. The most recent chest x-ray showing some limited infiltration of the right lung base. In addition to that there is also pulmonary vessel congestion. Nevertheless the patient remains on a 30% FiO2 and PEEP of 5 superimposed pneumonia of the right lower lobe is considered although not certain at this point in time. The chest x-ray from today shows stable findings and there is no worsening in the kavita ent's pulmonary status or oxygenation. Most recent sputum analysis showing MSSA. The patient continues to be on IV Zosyn. The patient was given a spontaneous breathing trial and the patient was able to tolerate pressure support of 5 and PEEP of 5 for an extended period of time and subsequently the patient went into SVT and based on that the child was discontinued and the patient was placed on assist control mode of ventilation. For now the patient is calm and comfortable. 2 abdominal distention with possibility of a cecal mass versus inflammatory changes. The colonoscopy was incomplete. Barium enema did not show evidence of any anatomic obstruction although there was concern of a inflammatory changes/tumor in the cecal area and mucosal lesions/colitis/mass cannot be completely excluded. No selin constricting lesion is seen. The patient was on TPN for nutritional support. The patient was switched to enteral feeding and a Dobbhoff catheter will be inserte and the patient continues to receive enteral feeding and the patient was able to produce bowel movement. The laxatives will be discontinued and the patient will be continued on enteral feeding for nutritional support. No TPN for now. 3 sepsis secondary to systemic candidemia with Pooja albicans growing in the catheter tip in the blood and the urine. Currently on a Eraxis. The catheter was removed and the patient was given a PICC line. He is hemodynamically stable on no pressors. Staph aureus/MSSA was again cultured in the sputum. He is also on a combination of Zosyn and vancomycin. The patient unfortunately continues to have some episodes of low-grade fever and the repeat culture been negative thus far. The cultures were done and the cultures are all negative. Based on this, I'm going to discontinue the PICC line. Cultured the PICC line tip. Use only peripheral lines. Discontinue the vancomycin. Continue Zosyn and Eraxis and monitor the fever pattern. 4 obesity. 5 obstructive sleep apnea 6 hypertension 7 hyperlipidemia 8 Chronic back pain 9 alcoholism 10 hypotension recovered and the patient is currently on no pressors. 11 MSSA in the sputum and the patient is currently taking a combination of Zosyn and vancomycin. 12 episodic fever secondary to systemic fungemia. The patient is receiving IV Tylenol for that. Please see above-mentioned discussion 13 SVT, episodic, back to sinus PLAN Discontinue propofol. Discontinue the Cardizem drip. Remove the PICC line. Send the PICC line tip to culture. Continue same antibiotic coverage. No spontaneous breathing trials for today. Keep the patient on assist control mode of ventilation. Stop laxatives. Continue enteral feeding for nutritional support. Add free water through the IV and the patient is on D5 water at the rate of 50 mL in addition to free water through the NG. Monitor electrolytes. Monitor sodium level. We'll continue to follow. Critically care evaluation done more than 30 minutes Time with Patient: Greater than 30
[2019-05-12 13:05] LABS: Glucose,Whole Blood 184 mg/dL (75-99)
[2019-05-12] MEDS: HALOPERIDOL LACTATE 5 MG/ML 1 ML VIAL IVP SCH ×2 (13:15→22:52)
[2019-05-12 13:21] VITALS: BMI 29.5
[2019-05-12] MEDS: LACTULOSE 20 GM/30 ML CUP PO SCH (13:45)
[2019-05-12] MEDS: BISACODYL 10 MG SUPP RECTAL SCH (13:45)
[2019-05-12] MEDS ORDERED: HALOPERIDOL LACTATE 5 MG/ML 1 ML VIAL IVP PRN (14:51)
[2019-05-12] MEDS ORDERED: VANCOMYCIN TROUGH DUE 1 EACH MISC MISCELLANE ONE (15:00)
[2019-05-12] MEDS: POTASSIUM BICARBONATE/CIT AC 20 MEQ TABLET.EFF NG-TUBE SCH ×5 (15:30→22:53)
--- NOTE | 2019-05-12 16:59 | P.PN ---
Subjective Progress Note Date: 05/12/19 Acute respiratory failure, aspiration pneumonia, severe abdominal pain, possible malignancy in the cecum, possible colitis, delirium tremor, urgent hypertension, COPD This is a 69-year-old male patient of Dr. Gallardo with past medical history of hypertension, hyperlipidemia, COPD, gastroesophageal reflux disease, remote history of tobacco use, obstructive sleep apnea not using CPAP. Patient complains of sudden onset of abdominal pain starting on Tuesday. He also complains of bloating in the abdomen for the past couple months as well as weight loss of 5-10 pounds over the past 3 months. He complains of decreased appetite. He states he has had occasional burgundy stools. He denies any black stools, no diarrhea, no vomiting. He denies any urinary symptoms. Patient states he had his last colonoscopy in 2013 which was normal. Patient presents to [facility] emergency center for evaluation. Abdominal x-ray shows no acute findings. CAT scan of the abdomen and pelvis showed marked thickening of the cecum concerning for malignancy. A nonspecific colitis is not excluded but felt to be less likely. Thickening in the gastric rugae which may be secondary to under distention versus a nonspecific gastritis. EKG is a sinus tachycardia with right bundle branch block, left AFB. WBC 16.7, hemoglobin 14.7, creatinine 0.74. Troponin negative. Amylase and lipase, liver function tests all normal. Urinalysis was clear with 1+ protein. Patient was admitted to the [facility] floor, consult with Dr. Givens, IV fluids, pain medications and Zofran. Plan is for colonoscopy tomorrow. 04/17: Overnight, patient developed acute respiratory failure and was transferred to the intensive care unit and patient placed on BiPAP, currently under care of Dr. Caballero. Patient subsequently intubated and placed on mechanical ventilation. Echocardiogram from yesterday reveals EF 55-60% with moderate concentric left ventricle hypertrophy, trace mitral regurgitation, trace tricuspid regurgitation, no pulmonary hypertension. No pericardial effusion. Chest x-ray shows new right basilar and pneumonic consolidation with diminished inspiration background right hilar and left basilar more patchy edema and or infiltrate felt present. Repeat chest x-ray shows new endotracheal tube with placement described with recommendations to pullback. Mild cardiomegaly and low lung volumes with bilateral hilar edema and/or infiltrate and right basilar consolidation all redemonstrated increasing left basilar infiltrate felt present. Abdomen was more distended and NG tube was placed. Immediate surgical consultation was requested by Dr. Caabllero. Dr. Givens attempted bedside colonoscopy but patient was not properly prepped. He is scheduled for CAT scan of the abdomen and pelvis this afternoon at 2:30. NG tube is in place with bile color returned. Family members are in the waiting room and have been updated. 04/18: The patient remains in intensive care unit intubated and on mechanical ventilation. Vent settings have been decreased and no plan for sedation holiday today. He was weaned off norepinephrine this morning. Urine output has been 50-75 mL per hour. Noted that the Goldberg tube is pink but urine is alesia most likely a drug reaction. Patient has had several bowel movements this morning. Antibiotics have been switched to Zosyn and vancomycin. TSH 0.224 with normal free T4 at 1.24. Surgical consultation has been changed to Dr. Aranda per family wishes. 04/19: Patient remains in intensive care unit intubated and on mechanical ventilation. Patient has had increased purulent secretions and underwent reintubation by Dr. Caballero. He also perform bronchoscopy at the bedside and suction 20 ML's purulent material specimen was sent to the lab for cytology and culture. He is concern for ARDS. Patient is continued on Zosyn and vancomycin. He has been off vasopressors since yesterday morning. Patient has had a small amount of liquid stool today much decreased from yesterday. Dr. Aranda is on for surgery at this point. Patient is having minimal output from NG tube. Bowel sounds remain hypoactive. Consult has been added for GI regarding concern for ischemic colitis. 04/20: Patient remains intubated and on mechanical ventilation. Repeat chest x- ray shows continued mild to moderate heart failure. Small to moderate effusions with prominent bibasilar atelectasis and/or consolidation persists. Dr. Aranda is planning for bedside colonoscopy today. Patient was ordered for soapsuds enema last night and this morning. Tube feedings on hold. He has been afebrile, heart rate in the 50s and 60s, blood pressure 141/66. Pulse ox 99%. WBC 8.1, hemoglobin 11.2. Creatinine 0.65. Bronchial washing cytology is pending. Bronchial cultures in progress. Patient will need to start tube feedings or TPN depending on results of colonoscopy scheduled for this afternoon. Patient was given 1 dose of IV Lasix this morning and is diuresing well. Family in the waiting room have been updated. 04/21: Patient remains in the bed, FiO2 40%, PEEP of 6, NG tube has been placed and had taken out the OG tube, fecaloid billous contents are observed in the NG tube, bowel sounds are very diminished today, no bowel movements over the past 24 hours, x-rays of the abdomen will be done to evaluate for progressive bowel obstruction, patient remains to be afebrile, no leukocytosis bronchial washing cultures shows no normal zander vital signs are stable no hypotensive events, patient is slightly hypotensive on IV Solu-Medrol 40 every 8 04/23: Patient remains intubated and on mechanical ventilation. Dr. Dunham does not plan for attempt at weaning today. He is started him on hydralazine for blood pressure control. Patient has been started on TPN. On Tuesday, patient underwent colonoscopy with Dr. Aranda that revealed reticulosis, tortuous colon a nd recommends once patient is off ventilation to have barium enema to evaluate the ileocecal valve. Keep NG tube post extubation and hold tube feedings for now. No bowel movement today. 04/24: Patient had a rough night became significantly hypertensive, tachypneic and tachycardic. Patient was started on labetalol drip once other options were attempted without success and this was weaned off this morning. Patient also was placed on Nimbex and fentanyl drip which are to be weaned off today. Chest x-ray shows worsening interstitial infiltrates bilaterally and possible interstitial edema. Dr. Dunham increase Lasix to 40 mg IV push every 12 hours. Patient has not had a bowel movement. He remains on TPN and NG tube to suction. Urine output is adequate, tea-colored. Discussed yesterday the possibility of needing a trach and PEG with family members. At this time, Dr. Dunham would like to hold off. 04/25: Patient is still sedated on mechanical ventilation he had failed his weaning parameter today I want to see him when the and the son were in the room door tachycardia with Dr. dao about further plan. Pulmonary and from medicine standpoint patient most likely will need to go to trach no PEG tube can be done for now expected the plan probably for Tuesday and from thereon if more stable can go for his barium enema to come with final diagnosis of the tumor or the finding in the cecum and the large intestine and from thereon further management can be planned. Patient still on multiple drips for pain management let pressure TPN and DT. 04/26: A Chin still on mechanical ventilation, sedated, he is slightly bit awaking when backing off on sedation is still very agitated between having quite bed elevated blood pressure and pulse rate did not succeed on weaning parameter and most likely he will need tracheostomy by tomorrow. PEG tube is negative be possible at this point because of the possibility of mass in the cecum with obstruction cankerous problem if he is more stable can go for barium enema and then PEG tube if there is no cecal mass likely his CEA came back negative. 04/27 patient examined bedside currently intubated D 10. Patient came in with abdominal pain, nausea, vomiting followed by a respiratory failure the next day leading to intubation. Patient is found to be agitated him on ventilator. Currently requiring 75 mics of propofol. On vital evaluation patient had a heart rate of 77 respiratory rate 26 blood pressure 159/62 on clear with pain d rip abdominal x-ray this morning shows nonspecific bowel pattern with the bilateral pleural effusion chest x-ray suggestive of pulmonary edema versus consolidation. Patient is currently on Lasix 40 mg IV twice a day and making good urine output 75 mL per hour. Blood cultures so far negative. Bronchoscopy results are negative so far. Plan for tracheostomy placement today. PEG tube is on hold until further information about the cecal mass/colitis. 04/28: Examined at bedside currently on CPAP. Patient was on a sedation holiday for approximately 1 hour sedation has been increased due to fatigue and agitation. Vital signs have been stable blood pressure 151/60 pulse ox a 97% on CPAP pulse rate 98. Patient was able to follow commands however weak. Patient was able to nod head and answer actions appropriately. Family at the bedside discussing plan of care. Continue nutritional support with TPN. 04/29: Patient examined bedside currently on CPAP tolerating. Patient is more alert today compared to yesterday. Patient is able to follow commands movements are weak and nods head appropriately to questions. Patient is on propofol at 10 at this time. She was on a sedation holiday however heart rate and blood pressure increase. Urinary output approximately 60-70 ML's per hour. Patient has not had a bowel movement continues with NG suction approximately 600-700 ML's output in 24 hours. 04/30: Patient is sitting up in bed does appear in less distress today he continues to have the trach in place we're trying to the patient on the ventilator hopefully he will be on trach collar tomorrow morning, family were at the bedside and updated about his situation he will be weaned off sedation completely liver on today he does not appear to be in acute distress at this time, we will hold off transfer the patient until after he weaned off. 05/01: Patient is sitting up in bed he is more awake and more alert is moving all his extremities currently has a trach collar in place, he continued to follow commands appropriately, his family were at the bedside and updated about his current situation. 05/02: Patient is sitting up in bed he continues to have ended in place, he continues to have the trach collar in place, is moving all his extremities, he is feeling better today he has no abdominal pain, he has not passed any gas and he has not had a bowel movement. 05/03: Patient remains in the intensive care unit. He has undergone barium enema today which revealed limited single contrast barium enema. Limited distention of the left side of the colon. There is proximal to mid sigmoid diverticulosis. There he reaches the cecum and refluxes multiple distal ileal loops. There is subtle contour irregularity of the cecum and mucosal lesion or colitis here is difficult to exclude. No frankly constricting lesion is seen. Repeat chest x- ray reveals correlate for congestive heart failure, pneumonia not excluded. Patient has been continued on TPN. Patient has a trach collar place at 28%. He has been hemodynamically stable. Not requiring vasopressors. Temperature max 1 00.0. White count is 12.7, potassium 3.4, creatinine 0.61. Blood sugars running between 155 and 181. 05/04: Patient remains in intensive care unit. Patient pulled his NG tube out yesterday and Dr Aranda to reevaluate as he did fail swallow evaluation. Speech therapy will reevaluate today as well. Patient is scheduled for PICC line placement today for TPN and central line will then be removed. Abdomen is soft. He has had good urine output. His temperature max 101.2 axillary. He is on IV Tylenol. Patient has worked with PT and OT and up to a chair. He is extremely fatigued following this activity. Patient will have an extended recovery phase. Ativan will be changed to only at bedtime if needed and Toradol added for pain versus Dilaudid. 05/05: Patient has worsened overnight, persistent fevers now high temperature of 10-103, patient was given cooling blanket, patient was seen in ICU, pancultures were obtained, patient's diaphoretic, tachypneic, labored breathing, pulmonary has restarted him on vent support through trach collar, significant tachypnea,. I requested infectious disease to see him, Dr. Kennedy, secondary to decompensation new high gradefevers,, troponins were ordered, EKG to be done, Solu-Medrol 3 doses to be given, patient has palate shallow ulcerations doesn't look viral, right decubitus stage II pressure ulcers, no petechiae or other rash noted,patient is on TPN, no bowel movement since admission per nursing staff 05/06, patient's fever has subsided, cultures from sputum shows presumptive staph aureus, usually in Yeast species, catheter tip Pooja albicans, patient is less tachypneic and is much more comfortable not in distress, steroids has been completed 3 doses, and has some hyperglycemia, on insulin drip at 22-25 units an hour, NPH was given early this morning at 3:00 and will be started on Levemir tonight 8 units starting 3 PM daily, patient is receiving 150 g of glucose per day from TPN. Patient currently is on vancomycin and Zosyn and anidulfungin by Dr. Kennedy. Cardiology has seen the patient, rule out NM with elevated troponin, most likely secondary to severe sepsis 05/07: Patient remains in intensive care unit on mechanical ventilation. Patient has been changed to DO NOT RESUSCITATE over the weekend. Patient has NG tube an d we'll start tube feedings and plan. TPN. He has not had a bowel movement since April 19. Insulin drip will be transitioned over to long-acting Levemir and NovoLog scale. 05/08: Patient remains in the intensive care unit, on mechanical ventilation. Patient is still having intermittent fevers. Family history and CODE STATUS back to full code. He is on tube feedings at 13 ML's per hour which is current with no plan to increase this. Abdomen is soft but no bowel sounds. No stool. He is ordered for Dulcolax suppository this morning. KUB will be ordered. Patient failed a sedation holiday today. Urine output has been adequate. 05/09: Chest x-ray today showed diffuse lung disease stable. Feeding tube is extended in the left upper quadrant of the abdomen. Patient is currently off TPN and tube feedings are at 13 ML's per hour. Patient did have a small mucous- type bowel movement. Patient is on a daily Dulcolax suppository regime. We will add Reglan 5 mg 4 times daily. Patient is currently on sedation holiday. Plan is for possible Dobbhoff placement. Urine output has been adequate. Patient is continued on Antimicrobials in the form of Eraxis, Zosyn and vancomycin. Fevers are improving. 05/10, patient remains in ICU, he has been weaned off his propofol for sedation, still requiring Dilaudid for pain, has thick secretions from his trach, still requiring ventilatory support, no bowel movements except for some years, patient has postoperative bowel sounds on today's examination, the polyp is refusing vital HPI 13 mL an hour,stable labs no leukocytosis, hemoglobin 11.2, creatinine 0.5, CO2 of 21, sodium 145phosphorous now elevated at 5.1, dietary following hyperphosphatemia for the vital H PT-max today of 100.2 05/11: Patient remains in the intensive care unit. Patient was on sedation holiday yesterday from 2 PM until 10 PM and do to agitation, hypertension and tachycardia, who was resumed on sedation. Haldol did not seem to help. We will add in scheduled Haldol at 0.5 mg the morning and 1 mg at bedtime and continue the as needed doses well. Sedation holiday in process for today. Patient is awake and able to nod to answer questions. Patient has Dobbhoff in place and feedings are at 13 ML's. Patient has not had a bowel movement but does have good bowel sounds and abdomen soft. Temperature max yesterday was up to 101.1, repeat blood cultures and sputum cultures were obtained. He has been afebrile overnight. Repeat chest x-ray shows bilateral airspace disease and pleural effusion stable correlate for pneumonia or heart failure. 05/12 patient remains in the ICU. He was off sedation yesterday but was put back on sedation because of agitation and tachycardia. Patient was off sedation for 3 hours today. The patient is able to answer yes and no questions and follow commands.patient continues to have a temp of 100.2 on Tylenol. PICC line and central line and sent for culture. Continue antibiotics and antifungal. White is assessed suggest temporal 100.2 pulse of 100 respiratory rate of 25 blood pressure 160/86 saturating at 90% on 30% FiO2. Patient remains on ventilator. Morning dose of Haldol was held as patient did not have any agitation this morning.. evaluation of blood work patient had a hemoglobin of 12.4 stable. Arterial blood to suggest a pH of 7.47 pCO2 37 pO2 70. Sodium of 152. Potassium 2.8 chloride 118 calcium 10.3 EKG was ordered to suggest a QT interval well QT interval is elevated caution with QT prolonging medication including Haldol and Zofran. EKG suggested wide-complex tachycardia with prolonged QT. Review of system could not be obtained Objective - Vital Signs Vital signs: Vital Signs Temp 100.2 F H 05/12/19 13:00 Pulse 92 05/12/19 15:59 Resp 25 H 05/12/19 13:30 BP 140/82 05/12/19 13:30 Pulse Ox 91 L 05/12/19 13:30 Intake & Output 05/11/19 05/12/19 05/12/19 18:59 06:59 18:59 Intake Total 2696.843 7792.72 1320 Output Total 1870 2145 2055 Balance 0.834 207.72 -735 Weight 101 kg 98.7 kg 98.7 kg Intake: IV 950 990 310 Anidulafungin 100 mg In 130 130 Sodium Chloride 0.9% 100 ml @ 84 mls/hr IVPB DAILY [facility] Rx#:[id number] Piperacillin-Tazobactam 3 100 200 100 .375 gm In Sodium Chloride 0.9% 100 ml @ 25 mls/hr IVPB Q8H ELA Rx#: [id number] Potassium Chloride 20 meq 100 In Water For Injection 1 100ml.bag @ 50 mls/hr IVPB Q2H ELA Rx#: [id number] Sodium Chloride 0.9% 1, 220 190 80 000 ml @ 20 mls/hr IV . Q24H [facility] Rx#:[id number] Vancomycin 1,750 mg In 500 Sodium Chloride 0.9% 500 ml 500 ml @ 167 mls/hr IVPB Q12H ELA Rx#: [id number] Vancomycin 2,000 mg In 500 Sodium Chloride 0.9% 500 ml 500 ml @ 167 mls/hr IVPB Q12H ELA Rx#: [id number] Intake, IV Titration 91.834 72.72 400 Amount Dextrose 5% in Water 1, 300 000 ml @ 75 mls/hr IV . [id number] [facility]LA Rx#:[id number] Propofol 1,000 mg In 91.834 72.72 100 Empty Bag 1 bag @ Titrate IV .Q0M ELA Rx#: [id number] Tube Feeding 199 390 250 Other 630 900 360 Output: Urine 1870 2145 2055 Other: Voiding Method Indwelling Catheter Indwelling Catheter Indwelling Catheter # Bowel Movements 2 ABP, PAP, CO, CI - Last Documented Arterial Blood Pressure 102/102 - Exam - Constitutional General appearance: Intubated with tracheostomy tube int he neck obese - EENT Eyes: anicteric sclerae, PERRLA, normal appearance - Neck Neck: no rigidity, no stridor, no thyromegaly - Respiratory Respiratory: bilateral: CTA diminished air entry bilaterally with crackles at bases - Cardiovascular Rhythm: regular Heart sounds: normal: S1, S2 Abnormal Heart Sounds: no systolic murmur, no diastolic murmur, no rub, no S3 Gallop, no S4 Gallop, no click, no other - Gastrointestinal General gastrointestinal: normal bowel sounds, soft non tender - Integumentary Integumentary: no rash - Neurologic Neurologic: Could not be assessed - Musculoskeletal Musculoskeletal: Could not be assessed on sedation- Psychiatric Psychiatric: Agitated on sedation - Labs CBC & Chem 7: 05/12/19 04:33 05/12/19 13:21 Labs: Abnormal Lab Results - Last 24 Hours (Table) 05/11/19 05/11/19 05/11/19 Range/Units 17:59 18:46 20:50 RBC (4.30-5.90) m/uL Hgb (13.0-17.5) gm/dL Hct (39.0-53.0) % RDW (11.5-15.5) % Lymphocytes # (1.0-4.8) k/uL ABG pH (7.35-7.45) ABG pO2 (83-108) mmHg ABG HCO3 (21-25) mmol/L ABG Total CO2 (19-24) mmol/L ABG O2 Saturation (94-97) % Sodium (137-145) mmol/L Potassium 3.1 L (3.5-5.1) mmol/L Chloride (98-107) mmol/L BUN (9-20) mg/dL Glucose (74-99) mg/dL POC Glucose (mg/dL) 128 H 139 H (75-99) mg/dL Calcium (8.4-10.2) mg/dL 05/11/19 05/11/19 05/12/19 Range/Units 22:33 23:50 00:56 RBC (4.30-5.90) m/uL Hgb (13.0-17.5) gm/dL Hct (39.0-53.0) % RDW (11.5-15.5) % Lymphocytes # (1.0-4.8) k/uL ABG pH (7.35-7.45) ABG pO2 360 H (83-108) mmHg ABG HCO3 27 H (21-25) mmol/L ABG Total CO2 28 H (19-24) mmol/L ABG O2 Saturation 99.9 H (94-97) % Sodium (137-145) mmol/L Potassium (3.5-5.1) mmol/L Chloride (98-107) mmol/L BUN (9-20) mg/dL Glucose (74-99) mg/dL POC Glucose (mg/dL) 144 H 149 H (75-99) mg/dL Calcium (8.4-10.2) mg/dL 05/12/19 05/12/19 05/12/19 Range/Units 04:32 04:33 04:33 RBC 4.14 L (4.30-5.90) m/uL Hgb 12.4 L (13.0-17.5) gm/dL Hct 38.8 L (39.0-53.0) % RDW 15.7 H (11.5-15.5) % Lymphocytes # 0.7 L (1.0-4.8) k/uL ABG pH 7.47 H (7.35-7.45) ABG pO2 70 L (83-108) mmHg ABG HCO3 27 H (21-25) mmol/L ABG Total CO2 28 H (19-24) mmol/L ABG O2 Saturation 93.9 L (94-97) % Sodium 152 H (137-145) mmol/L Potassium 2.8 L (3.5-5.1) mmol/L Chloride 118 H (98-107) mmol/L BUN 33 H (9-20) mg/dL Glucose 133 H (74-99) mg/dL POC Glucose (mg/dL) (75-99) mg/dL Calcium 10.3 H (8.4-10.2) mg/dL 05/12/19 05/12/19 05/12/19 Range/Units 05:40 13:03 13:21 RBC (4.30-5.90) m/uL Hgb (13.0-17.5) gm/dL Hct (39.0-53.0) % RDW (11.5-15.5) % Lymphocytes # (1.0-4.8) k/uL ABG pH (7.35-7.45) ABG pO2 (83-108) mmHg ABG HCO3 (21-25) mmol/L ABG Total CO2 (19-24) mmol/L ABG O2 Saturation (94-97) % Sodium (137-145) mmol/L Potassium 2.9 L (3.5-5.1) mmol/L Chloride (98-107) mmol/L BUN (9-20) mg/dL Glucose (74-99) mg/dL POC Glucose (mg/dL) 115 H 184 H (75-99) mg/dL Calcium (8.4-10.2) mg/dL Microbiology - Last 24 Hours (Table) 05/10/19 15:21 Blood Culture - Preliminary Blood No Growth after 24 hours 05/10/19 15:15 Blood Culture - Preliminary Blood No Growth after 24 hours 05/10/19 20:00 Gram Stain - Preliminary Sputum Sputum Culture - Preliminary Assessment and Plan Plan: 1. Abdominal pain, possible colitis, possible malignancy of the cecum, neither have been ruled out but CEA is less than 0.5.. Dr. Aranda following general surgery, patient still has no bowel movement since admission. Continue IV fluids, continue Zosyn, vancomycin and Eraxis. Barium study as above. Dulcolax suppository daily. 2. Acute vent dependent respiratory failure with aspiration pneumonia, vent placement 05/04/2019 second episode. Haldol added. 3. Severe sepsis secondary to staph species sputum culture, bacteremia with Pooja albicans, arising from multifocal pneumonia. Continue Zosyn, vancomycin and Eraxis. 4. ARDS secondary to multifocal pneumonia, patient's on Zosyn, vancomycin and Eraxis, consult Dr. Kennedy. 5. Acute hypoxic and hypercapnic respiratory failure with bilateral pulmonary infiltrates and masslike consolidation in the right lower lobe most likely sec ondary to massive aspiration pneumonia initial episode, acute respiratory distress syndrome. Patient is status post bronchoscopy. Patient is status post trach. 6. Mild COPD exacerbation. Continue DuoNeb treatments every 4 hours as needed. Patient was given 3 doses of steroids 7. Diabetes mellitus type 2, insulin requiring, uncontrolled with hyperglycemia. Metformin on hold. Levemir 8 units daily, NovoLog scale 8. Generalized anxiety disorder. Citalopram 40 mg daily on hold. 9. Abdominal distention secondary to ileus. NG tube. Consult with Dr. Aranda . 10. Obstructive sleep apnea noncompliant with CPAP. 11. Blood culture with coag-negative staph, contamination. Candidemia with positive blood cultures, positive central line catheter tip. Continue Eraxis. 12. Delirium tremens, resolved. 13. Severe protein calorie malnutrition. Continue tube feedings at 13 ML's per hour. Possible Dobbhoff placement for feedings. 14. Sepsis, high-grade fevers noted, pending cultures has been obtained sputum urine and catheter tipfrom 05/04/2019. Consult with Dr. Kennedy 15 Hypertension with episode of accelerated hypertension. Continue Lopressor IV, hydralazine, Vasotec as needed Gastroesophageal reflux disease and GI prophylaxis. Continue Protonix. DVT prophylaxis. Heparin subcu. prognosis guarded, critically ill Discharge plan: To be determined.
[2019-05-12 17:57] LABS: Glucose,Whole Blood 149 mg/dL (75-99)
--- NOTE | 2019-05-12 18:38 | PN ---
PROGRESS NOTE DATE OF SERVICE: 05/12/2019. REASON FOR FOLLOW UP: Persistent low-grade fever in this patient who did have pneumonia and candidemia. HISTORY OF PRESENT ILLNESS: The patient is a 69-year-old, male who has been in the hospital almost a month, presented initially to the ER on 04/15/2019 with chief complaints of abdominal pain. Apparently, the patient said has been going on for a day before the presentation to the hospital with some nausea and nonbloody emesis. 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 The patient has been evaluated by General Surgery. The patient was treated medically. However, the morning of 04/17/2019, the patient becoming short of breath and was treated with non rebreather. Chest x- ray with diffuse bilateral pulmonary infiltrates. Subsequently the patient has been transferred to the ICU and has been intubated. The patient failed to be extubated and ended up having a trach and PEG during this hospital stay. The patient did have bronchoscopy on April 19. Those culture have been negative. The patient did have a triple-lumen catheter. The tip culture positive for Pooja albicans. The patient also had blood culture positive for Pooja albicans on May 04. Repeat blood cultures 05/10 so far negative. Also have a sputum with MSSA. This patient has been running a low- grade fever since throughout his hospital stay, I was asked to see the patient for a followup. The patient is currently on the trach and is unable to provide any history. The patient did have significant loose stools for which the patient did have fecal management system. The patient was on a combination of vancomycin and Zosyn and Eraxis with vancomycin being discontinued today, pulmonary and has been continued on Zosyn. The patient is currently not on any pressor support. REVIEW OF SYSTEMS: Could not be reliably obtained though the positive points have been mentioned in HPI. His past medical and surgical history reviewed. Medication reviewed. PHYSICAL EXAMINATION: Blood pressure 140/82 with a pulse of 90. Temperature 100.2. He is 91% on 30% FiO2. General description is an elderly male lying in bed in no distress. HEENT: Shows pallor. No scleral icterus. Oral: Mucous membranes dry. NECK: Trachea site is currently clean. Lungs unlabored breathing, decreased breath sounds at the bases. No wheeze. Heart is S1, S2. Regular rate and rhythm. ABDOMEN: Soft. Mild distention. No guarding or rigidity. EXTREMITIES: No edema of the feet. Examination of the sacral area, he did have Stage II sacral pressure ulcer. No evidence of any cellulitis, mostly rash, bruises but no rashes. NEUROLOGICAL: Patient is awake however the patient is currently nonverbal. LABS: Hemoglobin is 12.4, white count 7.6. BUN of 33, creatinine 0.93. Potassium 2.9. UA was slightly positive 04/17. No stool culture has been done. DIAGNOSTIC IMPRESSION AND PLAN: Patient presented to the hospital with abdominal pain, nausea and vomiting. This patient noticed to have evidence of inflammation of the cecum and a question of possible colitis versus malignancy for which the patient did have a barium enema, but colonoscopy could not be completed or any biopsies and the patient did not have any stool studies. This patient who did have evidence of Pooja albicans bacteremia, questionable source is the line that has been discontinued, now with persistent low- grade fever could have been related to the PICC line that was placed. However, the patient was still having positive cultures with Pooja albicans, source possible the PICC line. Other sources could have been abdominal especially the colitis that cannot be fully investigated and the possible hepatosplenic candidiasis not entirely excluded. PLAN: 1. We will obtain a stool for C diff and stool culture. 2. Check a CT abdominal pelvis with contrast to follow up on the colitis in addition to rule out hepatosplenic candidiasis 3. The patient to continue with Eraxis for the Pooja. I will discontinue Zosyn and add Rocephin and Flagyl to cover for both MSSA in the sputum as well as abdominal source. 4. We will follow on the clinical condition and further adjust medication if needed. Thank you for this consultation. We will follow the patient along with you until Dr. Kennedy is back from his vacation. MMODL / IJN: [id number] / KIMBERLY
[2019-05-12] MEDS: IOPAMIDOL-300 CONTRAST 30 ML VIAL (ORAL USE) PO PRN ×2 (19:47→20:51)
[2019-05-12] MEDS: INSULIN DETEMIR (LEVEMIR) 100 UNIT/ML SYR SQ SCH (20:54)
[2019-05-12 21:01] LABS: Glucose,Whole Blood 130 mg/dL (75-99)
--- NOTE | 2019-05-12 22:42 | CT ---
EXAM: CT Abdomen and Pelvis With Intravenous Contrast CLINICAL HISTORY: colitis TECHNIQUE: Axial computed tomography images of the abdomen and pelvis with 100 mL of Isovue-300 intravenous contrast. CTDI is 39 mGy and DLP is 1838 mGy- cm. This CT exam was performed using one or more of the following dose reduction techniques: automated exposure control, adjustment of the mA and/or kV according to patient size, and/or use of iterative reconstruction technique. COMPARISON: 04/15/19. FINDINGS: Lung bases: Areas of pleural thickening and consolidation in the lung bases with some associated atelectasis. These findings are new from the prior study ABDOMEN: Liver: Unremarkable. No mass. Gallbladder and bile ducts: Unremarkable. No calcified stones. No ductal dilation. Pancreas: Unremarkable. No mass. No ductal dilation. Spleen: Unremarkable. No splenomegaly. Adrenals: Unremarkable. No mass. Kidneys and ureters: Unremarkable. No solid mass. No hydronephrosis. Stomach and bowel: Unremarkable. No obstruction. No mucosal thickening. PELVIS: Appendix: No findings to suggest acute appendicitis. Bladder: Unremarkable. No mass. Reproductive: Unremarkable as visualized. ABDOMEN and PELVIS: Intraperitoneal space: Unremarkable. No free air. No significant fluid collection. Bones/joints: No acute fracture. No dislocation. Soft tissues: Unremarkable. Vasculature: Unremarkable. No abdominal aortic aneurysm. Lymph nodes: Unremarkable. No enlarged lymph nodes. IMPRESSION: Consolidation in the left and right lung base with some pleural thickening there is some minimal associated atelectasis as well clinical correlation is required possibility of a infectious pneumonic process in the lung bases cannot be excluded. Otherwise unremarkable CT abdomen and pelvis
[2019-05-12] MEDS: metroNIDAZOLE-NS PMX 500 MG in SALINE 1 100ML.BAG IVPB SCH (23:58)
[2019-05-13 00:04] LABS: Glucose,Whole Blood 115 mg/dL (75-99)
[2019-05-13] MEDS: IPRATROPIUM-ALBUTEROL 3 ML NEB INHALATION SCH ×6 (02:54→22:53)
[2019-05-13] MEDS: PROPOFOL 1,000 MG in EMPTY BAG 1 BAG IV SCH ×2 (03:28→08:53)
[2019-05-13] MEDS: ARTIFICIAL TEARS-HYPROMELLOSE DROPS 15 ML BTL BOTH EYES SCH ×5 (03:28→21:08)
[2019-05-13] MEDS: HYDROmorphone 0.5 MG/0.5 ML SYRINGE IVP PRN ×7 (04:20→21:12)
[2019-05-13 04:58] LABS: ABG Base Excess 6.9 mmol/L; ABG HCO3 30 mmol/L (21-25); ABG Oxygen Saturation 91.2 % (94-97); ABG PCO2 39 mmHg (35-45); ABG PH 7.49 (7.35-7.45); ABG PO2 60 mmHg (83-108); ABG TCO2 31 mmol/L (19-24); Allen Test Performed? Yes
[2019-05-13 05:54] LABS: Basophils % (A) 0 %; Eosinophils # (A) 0.4 k/uL (0-0.7); Eosinophils % (A) 5 %; HCT 36.4 % (39.0-53.0); HGB 11.6 gm/dL (13.0-17.5); Hypochromasia Slight; Lymphocytes # (A) 0.9 k/uL (1.0-4.8); Lymphocytes % (A) 10 %; MCH 29.6 pg (25.0-35.0); MCHC 31.9 g/dL (31.0-37.0); MCV 92.8 fL (80.0-100.0); Mean Platelet Volume 7.9; Monocytes # (A) 0.3 k/uL (0-1.0); Monocytes % (A) 4 %; Neutrophils # (A) 6.6 k/uL (1.3-7.7); Neutrophils % (A) 79 %; Platelet Count 335 k/uL (150-450); RBC 3.93 m/uL (4.30-5.90); WBC 8.3 k/uL (3.8-10.6)
[2019-05-13 06:09] LABS: African American GFR (CKD) >90 (>60 ml/min/1.73 sqM); Anion Gap 9 mmol/L; Blood Urea Nitrogen 33 mg/dL (9-20); Calcium 9.9 mg/dL (8.4-10.2); Carbon Dioxide 29 mmol/L (22-30); Chloride 112 mmol/L (98-107); Glucose 154 mg/dL (74-99); Potassium 2.9 mmol/L (3.5-5.1); Sodium 150 mmol/L (137-145)
[2019-05-13] MEDS ORDERED: POTASSIUM BICARBONATE/CIT AC 20 MEQ TABLET.EFF NG-TUBE SCH ×2 (06:12→18:00)
[2019-05-13] MEDS ORDERED: POTASSIUM CHLORIDE 20 MEQ in WATER FOR INJECTION 1 100ML.BAG IVPB SCH (06:15)
[2019-05-13] MEDS: METOCLOPRAMIDE 5 MG/ML 2 ML VIAL IVP SCH ×3 (06:36→17:19)
[2019-05-13] MEDS: INSULIN ASPART (NovoLOG) 100 UNIT/ML VIAL SQ SCH ×3 (06:48→17:18)
[2019-05-13 06:56] LABS: Glucose,Whole Blood 161 mg/dL (75-99)
[2019-05-13] MEDS: POTASSIUM CHLORIDE 10 MEQ in WATER FOR INJECTION 1 100ML.BAG IVPB SCH ×6 (07:15→15:18)
--- NOTE | 2019-05-13 07:21 | XR ---
EXAMINATION TYPE: XR chest 1V portable DATE OF EXAM: 05/13/2019 COMPARISON: 05/12/2019 HISTORY: Shortness of breath TECHNIQUE: Single frontal view of the chest is obtained. FINDINGS: Bilateral airspace disease and pleural effusion stable. Feeding tube, tracheostomy tube an d central line stable. No pneumothorax. Tip of the feeding tube appears in the gastric fundus. IMPRESSION: Bilateral airspace disease and pleural effusion stable correlate for pneumonia or CHF.
[2019-05-13] MEDS: metroNIDAZOLE-NS PMX 500 MG in SALINE 1 100ML.BAG IVPB SCH ×2 (08:49→15:17)
--- NOTE | 2019-05-13 08:54 | P.PN ---
Subjective Progress Note Date: 05/13/19 CHIEF COMPLAINT: Acute respiratory distress and Pyrexia HISTORY OF PRESENT ILLNESS: The patient is a 69-year-old male with hospitalization over 3 weeks. His status has been unchanged from yesterday. He is still has low grade temperatures of 100.2 yesterday. He is on full ventilatory support. He is on tube feeds and having bowel movements. ROS: No blood in stools. Still having fevers. PHYSICAL EXAM: VITAL SIGNS: Reviewed CONSTITUTIONAL: Well developed and in no acute distress. EYES: Conjuctivae without sclera icterus. Extraocular movements grossly intact. HEAD, EARS, NOSE, THROAT: Dry buccal mucosa. Head is atraumatic, normocephalic. No nasal drainage. NECK: Supple. Tracheostomy intact. RESPIRATORY: Non-labored respirations and equal bilateral excursions. CARDIOVASCULAR: Palpable 2+ radial pulses. Regular rate. ABDOMEN: Soft. No peritonitis. MUSCULOSKELETAL: No gross deformity of the lower extremities noted. No clubbing. No cyanosis. SKIN: Good skin turgor. Well perfused. NEUROLOGIC: No focal or lateralizing signs. PSYCH: Alert to person. CLINCAL LABS: White blood cell down from over 14,000 to 7,000, normal STUDIES: CT of the abdomen and pelvis independently reviewed. No free fluid or free air. Moderately distended gallbladder. REPORTS: Reviewed with atelectasis. No fluid collection. ASSESSMENT: 1. Acute respiratory distress 2. Status post tracheostomy 3. History of pneumonia. 4. Fungemia and bacteremia 5. Persistent pyrexia. PLAN: 1. Ultrasound of the gallbladder obtained and personally reviewed with findings of gallbladder sludge and gallbladder wall thickening without pericholecystic fluid. 2. Continue IV antibiotics. 3. Continue ICU management 4. Recommend adjust tube feeds to low fat form. 5. No acute surgical intervention at this time. Objective - Vital Signs Vital signs: Vital Signs Temp 99.7 F H 05/13/19 08:00 Pulse 82 05/13/19 08:00 Resp 16 05/13/19 08:00 BP 123/72 05/13/19 08:00 Pulse Ox 98 05/13/19 08:00 Intake & Output 05/12/19 05/13/19 05/13/19 18:59 06:59 18:59 Intake Total 2245 3883.211 135 Output Total 2575 2870 100 Balance -330 1013.211 35 Weight 98.7 kg 98 kg Intake: IV 360 1200 75 Anidulafungin 100 mg In 130 Sodium Chloride 0.9% 100 ml @ 84 mls/hr IVPB DAILY [facility] Rx#:[id number] Dextrose 5% in Water 1, 900 75 000 ml @ 75 mls/hr IV . [id number] [facility] Rx#:[id number] Piperacillin-Tazobactam 3 100 .375 gm In Sodium Chloride 0.9% 100 ml @ 25 mls/hr IVPB Q8H [facility] Rx#: [id number] Potassium Chloride 10 meq 100 In Water For Injection 1 100ml.bag @ 100 mls/hr IVPB Q1HR [facility] Rx#: [id number] Sodium Chloride 0.9% 1, 130 000 ml @ 20 mls/hr IV . Q24H [facility] Rx#:[id number] cefTRIAXone 2 gm In 100 Sodium Chloride 0.9% 50 ml @ 100 mls/hr IVPB Q24H [facility] Rx#:[id number] metroNIDAZOLE-NS PMX 500 100 mg In Saline 1 100ml.bag @ 100 mls/hr IVPB Q8HR E[facility] Rx#:[id number] Intake, IV Titration 775 303.211 Amount Dextrose 5% in Water 1, 675 75 000 ml @ 75 mls/hr IV . [id number] [facility] Rx#:[id number] Propofol 1,000 mg In 100 228.211 Empty Bag 1 bag @ Titrate IV .Q0M [facility] Rx#: [id number] Oral 1200 Tube Feeding 450 580 60 Other 660 600 Output: Urine 2575 2870 100 Other: Voiding Method Indwelling Catheter Indwelling Catheter Indwelling Catheter ABP, PAP, CO, CI - Last Documented Arterial Blood Pressure 102/102 - Labs CBC & Chem 7: 05/13/19 05:25 05/13/19 05:25 Labs: Abnormal Lab Results - Last 24 Hours (Table) 05/12/19 05/12/19 05/12/19 Range/Units 13:03 13:21 17:54 RBC (4.30-5.90) m/uL Hgb (13.0-17.5) gm/dL Hct (39.0-53.0) % Lymphocytes # (1.0-4.8) k/uL ABG pH (7.35-7.45) ABG pO2 (83-108) mmHg ABG HCO3 (21-25) mmol/L ABG Total CO2 (19-24) mmol/L ABG O2 Saturation (94-97) % Sodium (137-145) mmol/L Potassium 2.9 L (3.5-5.1) mmol/L Chloride (98-107) mmol/L BUN (9-20) mg/dL Glucose (74-99) mg/dL POC Glucose (mg/dL) 184 H 149 H (75-99) mg/dL 05/12/19 05/12/19 05/12/19 Range/Units 19:12 20:48 23:50 RBC (4.30-5.90) m/uL Hgb (13.0-17.5) gm/dL Hct (39.0-53.0) % Lymphocytes # (1.0-4.8) k/uL ABG pH (7.35-7.45) ABG pO2 (83-108) mmHg ABG HCO3 (21-25) mmol/L ABG Total CO2 (19-24) mmol/L ABG O2 Saturation (94-97) % Sodium 152 H (137-145) mmol/L Potassium (3.5-5.1) mmol/L Chloride (98-107) mmol/L BUN (9-20) mg/dL Glucose (74-99) mg/dL POC Glucose (mg/dL) 130 H 115 H (75-99) mg/dL 05/13/19 05/13/19 05/13/19 Range/Units 04:57 05:25 05:25 RBC 3.93 L (4.30-5.90) m/uL Hgb 11.6 L (13.0-17.5) gm/dL Hct 36.4 L (39.0-53.0) % Lymphocytes # 0.9 L (1.0-4.8) k/uL ABG pH 7.49 H (7.35-7.45) ABG pO2 60 L (83-108) mmHg ABG HCO3 30 H (21-25) mmol/L ABG Total CO2 31 H (19-24) mmol/L ABG O2 Saturation 91.2 L (94-97) % Sodium 150 H (137-145) mmol/L Potassium 2.9 L (3.5-5.1) mmol/L Chloride 112 H (98-107) mmol/L BUN 33 H (9-20) mg/dL Glucose 154 H (74-99) mg/dL POC Glucose (mg/dL) (75-99) mg/dL 05/13/19 Range/Units 06:43 RBC (4.30-5.90) m/uL Hgb (13.0-17.5) gm/dL Hct (39.0-53.0) % Lymphocytes # (1.0-4.8) k/uL ABG pH (7.35-7.45) ABG pO2 (83-108) mmHg ABG HCO3 (21-25) mmol/L ABG Total CO2 (19-24) mmol/L ABG O2 Saturation (94-97) % Sodium (137-145) mmol/L Potassium (3.5-5.1) mmol/L Chloride (98-107) mmol/L BUN (9-20) mg/dL Glucose (74-99) mg/dL POC Glucose (mg/dL) 161 H (75-99) mg/dL Microbiology - Last 24 Hours (Table) 05/10/19 20:00 Gram Stain - Preliminary Sputum Sputum Culture - Preliminary Presumptive Staph aureus 05/12/19 15:32 Stool Culture - Preliminary Stool 05/12/19 16:00 Catheter Tip Culture - Preliminary Picc Line 05/10/19 15:21 Blood Culture - Preliminary Blood No Growth after 48 hours 05/10/19 15:15 Blood Culture - Preliminary Blood No Growth after 48 hours Assessment and Plan (1) Respiratory failure Current Visit: Yes Status: Acute Code(s): J96.90 - RESPIRATORY FAILURE, UNSP, UNSP W HYPOXIA OR HYPERCAPNIA SNOMED Code(s): 204833961 (2) Pyrexia Current Visit: Yes Status: Acute Code(s): R50.9 - FEVER, UNSPECIFIED SNOMED Code(s): 098644800 (3) Status post tracheostomy Current Visit: Yes Status: Acute Code(s): Z93.0 - TRACHEOSTOMY STATUS SNOMED Code(s): 297851734 (4) Leukocytosis Current Visit: Yes Status: Acute Code(s): D72.829 - ELEVATED WHITE BLOOD CELL COUNT, UNSPECIFIED SNOMED Code(s): 308502274
[2019-05-13] MEDS: ANIDULAFUNGIN 100 MG in SODIUM CHLORIDE 0.9% 100 ML IVPB SCH (09:11)
[2019-05-13] MEDS: FUROSEMIDE 10 MG/ML 4 ML VIAL IV SCH ×2 (09:11→21:09)
[2019-05-13] MEDS: CHLORHEXIDINE GLUCONATE 15 ML CUP MUCOUS MEM SCH ×2 (09:11→21:08)
[2019-05-13] MEDS: HALOPERIDOL LACTATE 5 MG/ML 1 ML VIAL IVP SCH ×2 (09:11→21:09)
[2019-05-13] MEDS: PANTOPRAZOLE 40 MG/10 ML VIAL IV SCH (09:12)
[2019-05-13] MEDS: HEPARIN SODIUM,PORCINE 5,000 UNIT/ML 1 ML VIAL SQ SCH ×2 (09:12→21:09)
--- NOTE | 2019-05-13 09:56 | US ---
EXAMINATION TYPE: US gallbladder DATE OF EXAM: 05/13/2019 COMPARISON: CT CLINICAL HISTORY: Right upper quadrant pain. Pain EXAM MEASUREMENTS: Liver Length: 24.6 cm Gallbladder Wall: 0.3 cm CBD: 0.6 cm Right Kidney: 13.4 x 5.9 x 6.4 cm Very limited exam, pt in ICU, vented, immobile, very gassy Pancreas: Obscured by bowel gas Liver: Heterogeneous, enlarged, limited visualization Gallbladder: Possible sludge at dependant portion, wall thickness upper limits of normal Evidence for sonographic Goddard's sign: Pt vented CBD: wnl Right Kidney: Appeared wnl, limited views due to overlying bowel gas IMPRESSION: Limited exam as discussed above. 1. Markedly limited exam. Findings involving the liver and nonspecific single hepatic steatosis or he patocellular disease correlate clinically. 2. Gallbladder sludge.
[2019-05-13 11:31] LABS: Glucose,Whole Blood 137 mg/dL (75-99)
[2019-05-13] MEDS: DEXTROSE 5% IN WATER 1,000 ML IV SCH (11:46)
[2019-05-13] MEDS: HALOPERIDOL LACTATE 5 MG/ML 1 ML VIAL IVP PRN ×4 (12:13→18:21)
--- NOTE | 2019-05-13 12:13 | P.PN ---
Subjective Progress Note Date: 05/13/19 On 05/07/2019 I'm seeing this patient for a follow-up. The patient was recently treated and currently is on propofol at 75 g per KG pigmented. The patient obviously decompensated and the patient was found to have positive candidemia and systemic fungemia probably related to line infection. The patient is still on TPN for nutritional support. The blood culture and a triple lumen catheter tip came back positive for Pooja albicans. The urine was also positive for Pooja albicans. The catheter was positive for Pooja albicans. The triple- lumen catheter was removed and the patient currently has a PICC line. Is still on TPN for nutritional support. He is on Eraxis and the patient is currently hemodynamically stable on no pressors. Abdomen is nondistended. No fever. No chills. He has adequate urine output. He also had staph aureus in his sputum and he was placed on vancomycin. He is also on IV Zosyn. ID is on the case. The white cell count this morning is at 10.0. The blood gases this morning showed a pH of 7.36 with a pCO2 of 39 and pO2 127 and this was done while the patient on assist-control mode rate of 26 with a tidal volume of 450 and FiO2 of 50% with a PEEP of 5. Chest x-ray shows some limited infiltration of the right lower lobe. There is a right-sided PICC line catheter in place. No evidence of any pneumothorax. No evidence of any significant pleural effusion. There is interstitial edema. The renal function is stable. The lactic acid level is down to 1.9. Vancomycin trough is a 15.5. On today's evaluation of 05/08/2019 I'm seeing this patient for a follow-up. The patient is still having on and off fever. Repeat blood cultures of been sent in regards to his systemic candidemia and there is also still pending for now. The patient is on the appropriate antifungal coverage. The patient is also on a combination of Zosyn and vancomycin. Note that the patient is hemodynamically stable. No hypotension. He is maintaining his own blood pres sure. As a PICC line right upper extremity. TPN was discontinued yesterday the patient was started on enteral feeding for nutritional support. He is at goal at 13mL an hour of vital high protein. No abdominal distention. The patient seems to be tolerating the tube feeds without any major difficulties. He has not had any bowel movement activity. The patient is still sedated with propofol. We're going to gradually wean off the propofol and awake this patient up. At the same time the patient be kept on an assist-control mode of ventilation. The vent settings is currently at a tidal volume of 450 with a rate of 26 and FiO2 of 50% with a PEEP of 5. The blood gas today showed a pH of 7.4 with a pCO2 of 35 and pO2 of 120. Tracheostomy tube is in place. No significant leaks on the tracheostomy tube. He is producing adequate amount of urine output. No leukocytosis. White second was at 8.9 with a hemoglobin of 11.9. No other significant events otherwise for now. FiO2 was dropped down to 30% based on the above-mentioned blood gases.\ On 05/09/2019 the patient is being seen in follow-up in the intensive care unit. On today's evaluation the patient is being gradually weaned off the sedation. NG tube will be replaced with a Dobbhoff catheter and will continued enteral fee ding for nutritional support. As mentioned earlier, TPN has been discontinued. The patient has not produced any bowel movement activity yet. Meanwhile, the patient is afebrile hemodynamically stable. I checked the ventilator today and for issues related to synchrony and comfort, I changed the vent setting to include a VC plus mode with a tidal volume of 500 and a rate of 24 with a Itime of 0.7 and an FiO2 of 30% with a PEEP of 5. The patient is having some secretions from his tracheostomy tube. We'll ongoing to obtain sputum Gram stain and culture. His chest x-ray is showing some limited atelectatic changes infiltration of the right lung base. His white cell count is at 10.7. The seda olivo has a normal BUN and creatinine. He has developed some hyperchloremic hypernatremia and the patient will need free water supplementation. For now he was going to have a Dobbhoff tube placed and when the process of weaning this patient off the sedation. On 05/10/2019 I'm seeing this patient for a follow-up. The patient is being gradually weaned off sedation. We were able to cut him off completely off propofol. The patient was following some simple commands holding became tachypneic and tachycardic and worked up. It is also had some increased mobility and we felt that a Dobbhoff was removed. I performed a another abdominal x-ray in the tip of the Dobbhoff is seen in the stomach. Will continued enteral feeding for now. In terms of his vent support, the patient remains on an assist-control mode at the rate of 24 with a tidal volume of 500 and FiO2 of 30% with a PEEP of 5. Chest x-ray showing increased pulmonary vascular congestion with evolution of a right lower lobe pulmonary infiltrate. Nevertheless, he is hemodynamically stable. He is having low-grade fevers. He remains on a combination of Zosyn and vancomycin and Eraxis . The tube feeds are running at 13 ML's an hour. He is currently not receiving any form of TPN. Function is stable. He remains in a positive fluid balance and gentle diuresis will be started today. On 05/11/2019 I'm seeing this patient for a follow-up. The patient has still been intensive care unit. He remains on a mechanical ventilator. His sedation was discontinued yesterday and the patient's seems to be much more awake and responsive. Note that overnight, the patient became quite restless and agitated. He was given Haldol for delirium. Subsequently a tube placed on low- dose propofol. I discontinued the propofol this morning. He is still on a mechanical ventilator. Blood gases from today showed a pH of 7.46 with a pCO2 of 36 and pO2 of 77 and this was on FiO2 of 30% and the patient has a tidal volume of 500 with a rate of 24. The patient has a 5 of PEEP. Tracheostomy tube in place. Chest x-ray findings are stable. White cell count is at 7.9. He is still having on and off fever with T-max of 11.1 most recent temperature since early this morning he has been afebrile. The patient is hemodynamically stable. The follow-up blood cultures are still pending for now including the blood. The sputum analysis from 05/05/2019 showed MSSA. The patient is on enteral feeding for nutritional support. No bowel moment activity yet. I'm recommending gradually advancing the tube feeds along with the use of laxative. He has a component of hypernatremia and the patient will be started on free water supplements. On 05/12/2019 I'm seeing this patient. The patient is in the intensive care unit. He was given a sedation holiday yesterday. He was also given a prolonged breathing trial a pressure support of 5 and a PEEP of 5. Addendum of the day the patient went into SVT. He was given adenosine. He converted to sinus rhythm. He went back into a SVT. He was started on Cardizem drip and he was converted back into sinus rhythm. He is currently rhythm is sinus and he is hemodynamically stable without any pressors. Propofol will be discontinued again. He is on a mechanical ventilator. Currently is on assist control mode of ventilation. His tidal volumes of 500 with an FiO2 of 30% and PEEP of 5. Chest x-ray is unchanged. Atelectatic changes and infiltration of the right lung bases still present. Tracheostomy tube is in place. The patient has produced stools. In fact his having liqudy stool and the lack is this will be all discontinued. Continue the tube feeds for now. TPN has been discontinued. He is having low-grade fever. I'm going to remove the PICC line and give the patient peripheral lines only. Repeat blood cultures are negative for now. He is on Lasix 40 mg every 12 hours. Less edematous in the upper and lower extremities. He is on examination of Zosyn and vancomycin and Eraxis. I'm going to discontinue the vancomycin for now. On 05/13/2019 the patient is in intensive care unit. Still on a mechanical ventilation. The patient is in normal sinus rhythm. No further episodes of SVT. Tolerating tube feeds. Stooling. He is on free water supplements sodium level is improving. Hemodynamically stable. PICC line was removed and the tip was sent for culture. Still on a combination of Zosyn and Eraxis. Vancomycin was discontinued yesterday. The patient was placed again on sedation. Off sedation is getting quite agitated. He is following simple commands however he gets quite restless. We'll counteracted with some Haldol. We'll stop the propofol again. He is an assist-control mode of ventilation with a tidal volume of 500 and FiO2 of 30% and a PEEP of 5. Chest x-ray is unchanged. CAT scan of the abdomen and pelvis was done yesterday showed no significant abnormalities. Some limited infiltrative changes and atelectasis in the right lung base. Objective - Vital Signs Vital signs: Vital Signs Temp 99.7 F H 05/13/19 08:00 Pulse 83 05/13/19 11:21 Resp 24 05/13/19 09:00 BP 112/68 05/13/19 09:00 Pulse Ox 100 05/13/19 09:00 Intake & Output 05/12/19 05/13/19 05/13/19 18:59 06:59 18:59 Intake Total 2245 3883.211 500.632 Output Total 2575 2870 200 Balance -330 1013.211 300.632 Weight 98.7 kg 98 kg Intake: IV 360 1200 250 Anidulafungin 100 mg In 130 Sodium Chloride 0.9% 100 ml @ 84 mls/hr IVPB DAILY [facility] Rx#:[id number] Dextrose 5% in Water 1, 900 150 000 ml @ 75 mls/hr IV . [id number] E[facility] Rx#:[id number] Piperacillin-Tazobactam 3 100 .375 gm In Sodium Chloride 0.9% 100 ml @ 25 mls/hr IVPB Q8H E[facility] Rx#: [id number] Potassium Chloride 10 meq 100 In Water For Injection 1 100ml.bag @ 100 mls/hr IVPB Q1HR ELA Rx#: [id number] Sodium Chloride 0.9% 1, 130 000 ml @ 20 mls/hr IV . Q24H [facility] Rx#:[id number] cefTRIAXone 2 gm In 100 Sodium Chloride 0.9% 50 ml @ 100 mls/hr IVPB Q24H ELA Rx#:[id number] metroNIDAZOLE-NS PMX 500 100 100 mg In Saline 1 100ml.bag @ 100 mls/hr IVPB Q8HR ELA Rx#:[id number] Intake, IV Titration 775 303.211 130.632 Amount Dextrose 5% in Water 1, 675 75 000 ml @ 75 mls/hr IV . [id number] [facility] Rx#:[id number] Propofol 1,000 mg In 100 228.211 130.632 Empty Bag 1 bag @ Titrate IV .Q0M ELA Rx#: [id number] Oral 1200 Tube Feeding 450 580 120 Other 660 600 Output: Urine 2575 2870 200 Other: Voiding Method Indwelling Catheter Indwelling Catheter Indwelling Catheter ABP, PAP, CO, CI - Last Documented Arterial Blood Pressure 102/102 - Exam Gen. appearance, comfortable The patient has a tracheostomy tube in place. The patient is more awake and he is following some simple commands Head exam was generally normal. There was no scleral icterus or corneal arcus. Mucous membranes were moist. Neck was supple and without jugular venous distension, thyromegaly, or carotid bruits. Carotids were easily palpable bilaterally. There was no adenopathy. The patient has a tracheostomy tube in place. No evidence of any air leak on a tracheostomy tube stoma. Lungs were clear to auscultation and percussion, and with normal diaphragmatic excursion. No wheezes or rales were noted. Scattered rhonchi heard throughout the lung oneil bilaterally and scattered expiratory wheeze Cardiac exam revealed the PMI to be normally situated and sized. The rhythm was regular and no extrasystoles were noted during several minutes of auscultation. The first and second heart sounds were normal and physiologic splitting of the second heart sound was noted. There were no murmurs, rubs, clicks, or gallops. Abdomen is soft. Nondistended. No direct tenderness rebound tensile guarding at this point in time. Bowel sounds are hypoactive at the present. The patient has no significant abdominal distention. Examination of the extremities revealed easily palpable radial, femoral and pedal pulses. There was no cyanosis, clubbing and there is +1 pitting edema in the lower extremities and upper extremities bilaterally. Neurologically the patient is gradually more arousable and he is following simple commands Examination of the skin revealed no evidence of significant rashes, suspicious appearing nevi or other concerning lesions. He is got edema in the lower extremities bilaterally. - Labs CBC & Chem 7: 05/13/19 05:25 05/13/19 05:25 Labs: Abnormal Lab Results - Last 24 Hours (Table) 05/12/19 05/12/19 05/12/19 Range/Units 13:03 13:21 17:54 RBC (4.30-5.90) m/uL Hgb (13.0-17.5) gm/dL Hct (39.0-53.0) % Lymphocytes # (1.0-4.8) k/uL ABG pH (7.35-7.45) ABG pO2 (83-108) mmHg ABG HCO3 (21-25) mmol/L ABG Total CO2 (19-24) mmol/L ABG O2 Saturation (94-97) % Sodium (137-145) mmol/L Potassium 2.9 L (3.5-5.1) mmol/L Chloride (98-107) mmol/L BUN (9-20) mg/dL Glucose (74-99) mg/dL POC Glucose (mg/dL) 184 H 149 H (75-99) mg/dL 05/12/19 05/12/19 05/12/19 Range/Units 19:12 20:48 23:50 RBC (4.30-5.90) m/uL Hgb (13.0-17.5) gm/dL Hct (39.0-53.0) % Lymphocytes # (1.0-4.8) k/uL ABG pH (7.35-7.45) ABG pO2 (83-108) mmHg ABG HCO3 (21-25) mmol/L ABG Total CO2 (19-24) mmol/L ABG O2 Saturation (94-97) % Sodium 152 H (137-145) mmol/L Potassium (3.5-5.1) mmol/L Chloride (98-107) mmol/L BUN (9-20) mg/dL Glucose (74-99) mg/dL POC Glucose (mg/dL) 130 H 115 H (75-99) mg/dL 05/13/19 05/13/19 05/13/19 Range/Units 04:57 05:25 05:25 RBC 3.93 L (4.30-5.90) m/uL Hgb 11.6 L (13.0-17.5) gm/dL Hct 36.4 L (39.0-53.0) % Lymphocytes # 0.9 L (1.0-4.8) k/uL ABG pH 7.49 H (7.35-7.45) ABG pO2 60 L (83-108) mmHg ABG HCO3 30 H (21-25) mmol/L ABG Total CO2 31 H (19-24) mmol/L ABG O2 Saturation 91.2 L (94-97) % Sodium 150 H (137-145) mmol/L Potassium 2.9 L (3.5-5.1) mmol/L Chloride 112 H (98-107) mmol/L BUN 33 H (9-20) mg/dL Glucose 154 H (74-99) mg/dL POC Glucose (mg/dL) (75-99) mg/dL 05/13/19 05/13/19 Range/Units 06:43 11:28 RBC (4.30-5.90) m/uL Hgb (13.0-17.5) gm/dL Hct (39.0-53.0) % Lymphocytes # (1.0-4.8) k/uL ABG pH (7.35-7.45) ABG pO2 (83-108) mmHg ABG HCO3 (21-25) mmol/L ABG Total CO2 (19-24) mmol/L ABG O2 Saturation (94-97) % Sodium (137-145) mmol/L Potassium (3.5-5.1) mmol/L Chloride (98-107) mmol/L BUN (9-20) mg/dL Glucose (74-99) mg/dL POC Glucose (mg/dL) 161 H 137 H (75-99) mg/dL Microbiology - Last 24 Hours (Table) 05/10/19 20:00 Gram Stain - Preliminary Sputum Sputum Culture - Preliminary Presumptive Staph aureus 05/12/19 15:32 Stool Culture - Preliminary Stool 05/12/19 16:00 Catheter Tip Culture - Preliminary Picc Line 05/10/19 15:21 Blood Culture - Preliminary Blood No Growth after 48 hours 05/10/19 15:15 Blood Culture - Preliminary Blood No Growth after 48 hours Assessment and Plan Plan: 1 acute hypoxic/hypercapnic respiratory failure in a 69-year-old male patient who presented initially with aspiration pneumonia and subsequently had prolonged ventilator dependent respiratory failure requiring prolonged intubation, mechanical ventilation and subsequent tracheostomy tube insertion. The most recent chest x-ray showing some limited infiltration of the right lung base. In addition to that there is also pulmonary vessel congestion. Nevertheless the patient remains on a 30% FiO2 and PEEP of 5 superimposed pneumonia of the right lower lobe is considered although not certain at this point in time. The chest x-ray from today shows stable findings and there is no worsening in the patient's pulmonary status or oxygenation. Most recent sputum analysis showing MSSA. The patient continues to be on IV Zosyn. The patient is currently on assist control mode of ventilation. Most recent CAT scan of the abdomen pelvis that was done as part of his GI workup showed some limited infiltration of the right lung base yet there is no evidence of active pneumonia at this point in time. Blood gases was noted. 2 abdominal distention with possibility of a cecal mass versus inflammatory changes. The colonoscopy was incomplete. Barium enema did not show evidence of any anatomic obstruction although there was concern of a inflammatory changes/tumor in the cecal area and mucosal lesions/colitis/mass cannot be completely excluded. No selin constricting lesion is seen. The patient was on TPN for nutritional support. The patient was switched to enteral feeding and a Dobbhoff catheter will be inserte and the patient continues to receive enteral feeding and the patient was able to produce bowel movement. The laxatives will be discontinued and the patient will be continued on enteral feeding for nutritional support. No TPN for now. The patient continues to produce adequate amount of bowel movements. Fecal management system in place regarding his stooling. 3 sepsis secondary to systemic candidemia with Pooja albicans growing in the catheter tip in the blood and the urine. Currently on a Eraxis. The catheter was removed and the patient was given a PICC line. He is hemodynamically stable on no pressors. Staph aureus/MSSA was again cultured in the sputum. He is also on a combination of Zosy and Eraxis. The cultures were done and the cultures are all negative. I remove the PICC line and the cultures of the tip was ordered. The results are still pending for now. The patient is afebrile today's evaluation. Use only peripheral lines. Discontinue the vancomycin. Continue Zosyn and Eraxis and monitor the fever pattern. Furthermore, the patient was seen by infectious disease. He was switched to 2 g of Rocephin in combination with Eraxis and vancomycin and Zosyn were both discontinued. 4 obesity. 5 obstructive sleep apnea 6 hypertension 7 hyperlipidemia 8 Chronic back pain 9 alcoholism 10 hypotension recovered and the patient is currently on no pressors. 11 MSSA in the sputum and the patient is currently taking a combination of Rocephin 2 g and vancomycin. 12 episodic fever secondary to systemic fungemia. The patient is receiving IV Tylenol for that. Please see above-mentioned discussion 13 SVT, episodic, back to sinus PLAN The plan for today is to wean the patient off the sedation. Use Haldol for agitation. Continue vent support. Continue Rocephin and Eraxis. Awaiting cultures from the catheter tip. Monitor the abdominal status and CAT scan of the abdomen and pelvis was noted. Fecal management system. Hemodynamically stable. We'll continue to follow. May be a candidate to treat transferred to select specialty sometime next week. This evaluation was done more than 30 minutes. Time with Patient: Greater than 30
[2019-05-13] MEDS ORDERED: QUEtiapine 100 MG TAB PO STA (14:04)
[2019-05-13] MEDS: QUEtiapine 25 MG TAB PO SCH ×2 (14:48→21:10)
--- NOTE | 2019-05-13 15:42 | P.PN ---
Subjective Progress Note Date: 05/13/19 Acute respiratory failure, aspiration pneumonia, severe abdominal pain, possible malignancy in the cecum, possible colitis, delirium tremor, urgent hypertension, COPD This is a 69-year-old male patient of Dr. Gallardo with past medical history of hypertension, hyperlipidemia, COPD, gastroesophageal reflux disease, remote history of tobacco use, obstructive sleep apnea not using CPAP. Patient complains of sudden onset of abdominal pain starting on Tuesday. He also complains of bloating in the abdomen for the past couple months as well as weight loss of 5-10 pounds over the past 3 months. He complains of decreased appetite. He states he has had occasional burgundy stools. He denies any black stools, no diarrhea, no vomiting. He denies any urinary symptoms. Patient states he had his last colonoscopy in 2013 which was normal. Patient presents to [facility] emergency center for evaluation. Abdominal x-ray shows no acute findings. CAT scan of the abdomen and pelvis showed marked thickening of the cecum concerning for malignancy. A nonspecific colitis is not excluded but felt to be less likely. Thickening in the gastric rugae which may be secondary to under distention versus a nonspecific gastritis. EKG is a sinus tachycardia with right bundle branch block, left AFB. WBC 16.7, hemoglobin 14.7, creatinine 0.74. Troponin negative. Amylase and lipase, liver function tests all normal. Urinalysis was clear with 1+ protein. Patient was admitted to the [facility] floor, consult with Dr. Givens, IV fluids, pain medications and Zofran. Plan is for colonoscopy tomorrow. 04/17: Overnight, patient developed acute respiratory failure and was transferred to the intensive care unit and patient placed on BiPAP, currently under care of Dr. Caballero. Patient subsequently intubated and placed on mechanical ventilation. Echocardiogram from yesterday reveals EF 55-60% with moderate concentric left ventricle hypertrophy, trace mitral regurgitation, trace tricuspid regurgitation, no pulmonary hypertension. No pericardial effusion. Chest x-ray shows new right basilar and pneumonic consolidation with diminished inspiration background right hilar and left basilar more patchy edema and or infiltrate felt present. Repeat chest x-ray shows new endotracheal tube with placement described with recommendations to pullback. Mild cardiomegaly and low lung volumes with bilateral hilar edema and/or infiltrate and right basilar consolidation all redemonstrated increasing left basilar infiltrate felt present. Abdomen was more distended and NG tube was placed. Immediate surgical consultation was requested by Dr. Caballero. Dr. Givens attempted bedside colonoscopy but patient was not properly prepped. He is scheduled for CAT scan of the abdomen and pelvis this afternoon at 2:30. NG tube is in place with bile color returned. Family members are in the waiting room and have been updated. 04/18: The patient remains in intensive care unit intubated and on mechanical ventilation. Vent settings have been decreased and no plan for sedation holiday today. He was weaned off norepinephrine this morning. Urine output has been 50-75 mL per hour. Noted that the Goldberg tube is pink but urine is alesia most likely a drug reaction. Patient has had several bowel movements this morning. Antibiotics have been switched to Zosyn and vancomycin. TSH 0.224 with normal free T4 at 1.24. Surgical consultation has been changed to Dr. Aranda per family wishes. 04/19: Patient remains in intensive care unit intubated and on mechanical ventilation. Patient has had increased purulent secretions and underwent reintubation by Dr. Caballero. He also perform bronchoscopy at the bedside and suction 20 ML's purulent material specimen was sent to the lab for cytology and culture. He is concern for ARDS. Patient is continued on Zosyn and vancomycin. He has been off vasopressors since yesterday morning. Patient has had a small amount of liquid stool today much decreased from yesterday. Dr. Aranda is on for surgery at this point. Patient is having minimal output from NG tube. Bowel sounds remain hypoactive. Consult has been added for GI regarding concern for ischemic colitis. 04/20: Patient remains intubated and on mechanical ventilation. Repeat chest x- ray shows continued mild to moderate heart failure. Small to moderate effusions with prominent bibasilar atelectasis and/or consolidation persists. Dr. Aranda is planning for bedside colonoscopy today. Patient was ordered for soapsuds enema last night and this morning. Tube feedings on hold. He has been afebrile, heart rate in the 50s and 60s, blood pressure 141/66. Pulse ox 99%. WBC 8.1, hemoglobin 11.2. Creatinine 0.65. Bronchial washing cytology is pending. Bronchial cultures in progress. Patient will need to start tube feedings or TPN depending on results of colonoscopy scheduled for this afternoon. Patient was given 1 dose of IV Lasix this morning and is diuresing well. Family in the waiting room have been updated. 04/21: Patient remains in the bed, FiO2 40%, PEEP of 6, NG tube has been placed and had taken out the OG tube, fecaloid billous contents are observed in the NG tube, bowel sounds are very diminished today, no bowel movements over the past 24 hours, x-rays of the abdomen will be done to evaluate for progressive bowel obstruction, patient remains to be afebrile, no leukocytosis bronchial washing cultures shows no normal zander vital signs are stable no hypotensive events, patient is slightly hypotensive on IV Solu-Medrol 40 every 8 04/23: Patient remains intubated and on mechanical ventilation. Dr. Dunham does not plan for attempt at weaning today. He is started him on hydralazine for blood pressure control. Patient has been started on TPN. On Tuesday, patient underwent colonoscopy with Dr. Aranda that revealed reticulosis, tortuous colon a nd recommends once patient is off ventilation to have barium enema to evaluate the ileocecal valve. Keep NG tube post extubation and hold tube feedings for now. No bowel movement today. 04/24: Patient had a rough night became significantly hypertensive, tachypneic and tachycardic. Patient was started on labetalol drip once other options were attempted without success and this was weaned off this morning. Patient also was placed on Nimbex and fentanyl drip which are to be weaned off today. Chest x-ray shows worsening interstitial infiltrates bilaterally and possible interstitial edema. Dr. Dunham increase Lasix to 40 mg IV push every 12 hours. Patient has not had a bowel movement. He remains on TPN and NG tube to suction. Urine output is adequate, tea-colored. Discussed yesterday the possibility of needing a trach and PEG with family members. At this time, Dr. Dunham would like to hold off. 04/25: Patient is still sedated on mechanical ventilation he had failed his weaning parameter today I want to see him when the and the son were in the room door tachycardia with Dr. dao about further plan. Pulmonary and from medicine standpoint patient most likely will need to go to trach no PEG tube can be done for now expected the plan probably for Tuesday and from thereon if more stable can go for his barium enema to come with final diagnosis of the tumor or the finding in the cecum and the large intestine and from thereon further management can be planned. Patient still on multiple drips for pain management let pressure TPN and DT. 04/26: A Chin still on mechanical ventilation, sedated, he is slightly bit awaking when backing off on sedation is still very agitated between having quite bed elevated blood pressure and pulse rate did not succeed on weaning parameter and most likely he will need tracheostomy by tomorrow. PEG tube is negative be possible at this point because of the possibility of mass in the cecum with obstruction cankerous problem if he is more stable can go for barium enema and then PEG tube if there is no cecal mass likely his CEA came back negative. 04/27 patient examined bedside currently intubated D 10. Patient came in with abdominal pain, nausea, vomiting followed by a respiratory failure the next day leading to intubation. Patient is found to be agitated him on ventilator. Currently requiring 75 mics of propofol. On vital evaluation patient had a heart rate of 77 respiratory rate 26 blood pressure 159/62 on clear with pain d rip abdominal x-ray this morning shows nonspecific bowel pattern with the bilateral pleural effusion chest x-ray suggestive of pulmonary edema versus consolidation. Patient is currently on Lasix 40 mg IV twice a day and making good urine output 75 mL per hour. Blood cultures so far negative. Bronchoscopy results are negative so far. Plan for tracheostomy placement today. PEG tube is on hold until further information about the cecal mass/colitis. 04/28: Examined at bedside currently on CPAP. Patient was on a sedation holiday for approximately 1 hour sedation has been increased due to fatigue and agitation. Vital signs have been stable blood pressure 151/60 pulse ox a 97% on CPAP pulse rate 98. Patient was able to follow commands however weak. Patient was able to nod head and answer actions appropriately. Family at the bedside discussing plan of care. Continue nutritional support with TPN. 04/29: Patient examined bedside currently on CPAP tolerating. Patient is more alert today compared to yesterday. Patient is able to follow commands movements are weak and nods head appropriately to questions. Patient is on propofol at 10 at this time. She was on a sedation holiday however heart rate and blood pressure increase. Urinary output approximately 60-70 ML's per hour. Patient has not had a bowel movement continues with NG suction approximately 600-700 ML's output in 24 hours. 04/30: Patient is sitting up in bed does appear in less distress today he continues to have the trach in place we're trying to the patient on the ventilator hopefully he will be on trach collar tomorrow morning, family were at the bedside and updated about his situation he will be weaned off sedation completely liver on today he does not appear to be in acute distress at this time, we will hold off transfer the patient until after he weaned off. 05/01: Patient is sitting up in bed he is more awake and more alert is moving all his extremities currently has a trach collar in place, he continued to follow commands appropriately, his family were at the bedside and updated about his current situation. 05/02: Patient is sitting up in bed he continues to have ended in place, he continues to have the trach collar in place, is moving all his extremities, he is feeling better today he has no abdominal pain, he has not passed any gas and he has not had a bowel movement. 05/03: Patient remains in the intensive care unit. He has undergone barium enema today which revealed limited single contrast barium enema. Limited distention of the left side of the colon. There is proximal to mid sigmoid diverticulosis. There he reaches the cecum and refluxes multiple distal ileal loops. There is subtle contour irregularity of the cecum and mucosal lesion or colitis here is difficult to exclude. No frankly constricting lesion is seen. Repeat chest x- ray reveals correlate for congestive heart failure, pneumonia not excluded. Patient has been continued on TPN. Patient has a trach collar place at 28%. He has been hemodynamically stable. Not requiring vasopressors. Temperature max 1 00.0. White count is 12.7, potassium 3.4, creatinine 0.61. Blood sugars running between 155 and 181. 05/04: Patient remains in intensive care unit. Patient pulled his NG tube out yesterday and Dr Aranda to reevaluate as he did fail swallow evaluation. Speech therapy will reevaluate today as well. Patient is scheduled for PICC line placement today for TPN and central line will then be removed. Abdomen is soft. He has had good urine output. His temperature max 101.2 axillary. He is on IV Tylenol. Patient has worked with PT and OT and up to a chair. He is extremely fatigued following this activity. Patient will have an extended recovery phase. Ativan will be changed to only at bedtime if needed and Toradol added for pain versus Dilaudid. 05/05: Patient has worsened overnight, persistent fevers now high temperature of 10-103, patient was given cooling blanket, patient was seen in ICU, pancultures were obtained, patient's diaphoretic, tachypneic, labored breathing, pulmonary has restarted him on vent support through trach collar, significant tachypnea,. I requested infectious disease to see him, Dr. Kennedy, secondary to decompensation new high gradefevers,, troponins were ordered, EKG to be done, Solu-Medrol 3 doses to be given, patient has palate shallow ulcerations doesn't look viral, right decubitus stage II pressure ulcers, no petechiae or other rash noted,patient is on TPN, no bowel movement since admission per nursing staff 05/06, patient's fever has subsided, cultures from sputum shows presumptive staph aureus, usually in Yeast species, catheter tip Pooja albicans, patient is less tachypneic and is much more comfortable not in distress, steroids has been completed 3 doses, and has some hyperglycemia, on insulin drip at 22-25 units an hour, NPH was given early this morning at 3:00 and will be started on Levemir tonight 8 units starting 3 PM daily, patient is receiving 150 g of glucose per day from TPN. Patient currently is on vancomycin and Zosyn and anidulfungin by Dr. Kennedy. Cardiology has seen the patient, rule out CO with elevated troponin, most likely secondary to severe sepsis 05/07: Patient remains in intensive care unit on mechanical ventilation. Patient has been changed to DO NOT RESUSCITATE over the weekend. Patient has NG tube an d we'll start tube feedings and plan. TPN. He has not had a bowel movement since April 19. Insulin drip will be transitioned over to long-acting Levemir and NovoLog scale. 05/08: Patient remains in the intensive care unit, on mechanical ventilation. Patient is still having intermittent fevers. Family history and CODE STATUS back to full code. He is on tube feedings at 13 ML's per hour which is current with no plan to increase this. Abdomen is soft but no bowel sounds. No stool. He is ordered for Dulcolax suppository this morning. KUB will be ordered. Patient failed a sedation holiday today. Urine output has been adequate. 05/09: Chest x-ray today showed diffuse lung disease stable. Feeding tube is extended in the left upper quadrant of the abdomen. Patient is currently off TPN and tube feedings are at 13 ML's per hour. Patient did have a small mucous- type bowel movement. Patient is on a daily Dulcolax suppository regime. We will add Reglan 5 mg 4 times daily. Patient is currently on sedation holiday. Plan is for possible Dobbhoff placement. Urine output has been adequate. Patient is continued on Antimicrobials in the form of Eraxis, Zosyn and vancomycin. Fevers are improving. 05/10, patient remains in ICU, he has been weaned off his propofol for sedation, still requiring Dilaudid for pain, has thick secretions from his trach, still requiring ventilatory support, no bowel movements except for some years, patient has postoperative bowel sounds on today's examination, the polyp is refusing vital HPI 13 mL an hour,stable labs no leukocytosis, hemoglobin 11.2, creatinine 0.5, CO2 of 21, sodium 145phosphorous now elevated at 5.1, dietary following hyperphosphatemia for the vital H PT-max today of 100.2 05/11: Patient remains in the intensive care unit. Patient was on sedation holiday yesterday from 2 PM until 10 PM and do to agitation, hypertension and tachycardia, who was resumed on sedation. Haldol did not seem to help. We will add in scheduled Haldol at 0.5 mg the morning and 1 mg at bedtime and continue the as needed doses well. Sedation holiday in process for today. Patient is awake and able to nod to answer questions. Patient has Dobbhoff in place and feedings are at 13 ML's. Patient has not had a bowel movement but does have good bowel sounds and abdomen soft. Temperature max yesterday was up to 101.1, repeat blood cultures and sputum cultures were obtained. He has been afebrile overnight. Repeat chest x-ray shows bilateral airspace disease and pleural effusion stable correlate for pneumonia or heart failure. 05/12 patient remains in the ICU. He was off sedation yesterday but was put back on sedation because of agitation and tachycardia. Patient was off sedation for 3 hours today. The patient is able to answer yes and no questions and follow commands.patient continues to have a temp of 100.2 on Tylenol. PICC line and central line and sent for culture. Continue antibiotics and antifungal. White is assessed suggest temporal 100.2 pulse of 100 respiratory rate of 25 blood pressure 160/86 saturating at 90% on 30% FiO2. Patient remains on ventilator. Morning dose of Haldol was held as patient did not have any agitation this morning.. evaluation of blood work patient had a hemoglobin of 12.4 stable. Arterial blood to suggest a pH of 7.47 pCO2 37 pO2 70. Sodium of 152. Potassium 2.8 chloride 118 calcium 10.3 EKG was ordered to suggest a QT interval well QT interval is elevated caution with QT prolonging medication including Haldol and Zofran. EKG suggested wide-complex tachycardia with prolonged QT. 05/13 patient remains in the ICU. Continues to be have brief episodes of agitation requiring high dose of Haldol. Patient does have QT prolongation and is at high risk of arrhythmia but due to increased agitation patient continues to get Haldol. Stat dose of Seroquel was given earlier today. We will decrease Seroquel to 25 twice a day and continue to watch for agitation. Patient is in delirium and responds minimally to commands. Vitals are stable with a pulse of 86 respiratory rate 25 blood pressure 147/93 on 30% FiO2 and 5 of PEEP and a tidal volume of 550 with assist control mode on ventilation. Patient is off sedation and is tolerating well with no episodes of tachycardia noted. Co ntinues to be Eraxis with the vancomycin being discontinued. Ceftriaxone and Flagyl initiated by Dr. Son today Sodium is improved from 152-150. Dextrose 5% increase to 125 mL per hour. Review of system could not be obtained Objective - Vital Signs Vital signs: Vital Signs Temp 99.3 F 05/13/19 12:00 Pulse 85 05/13/19 15:30 Resp 25 H 05/13/19 15:00 BP 147/93 05/13/19 15:00 Pulse Ox 100 05/13/19 15:00 Intake & Output 05/12/19 05/13/19 05/13/19 18:59 06:59 18:59 Intake Total 2245 3883.211 2340.632 Output Total 2575 2870 2650 Balance -330 1013.211 -309.368 Weight 98.7 kg 98 kg Intake: IV 360 1200 1550 Anidulafungin 100 mg In 130 100 Sodium Chloride 0.9% 100 ml @ 84 mls/hr IVPB DAILY ELA Rx#:[id number] Dextrose 5% in Water 1, 900 750 000 ml @ 125 mls/hr IV . Q8H ELA Rx#:[id number] Piperacillin-Tazobactam 3 100 .375 gm In Sodium Chloride 0.9% 100 ml @ 25 mls/hr IVPB Q8H ELA Rx#: [id number] Potassium Chloride 10 meq 100 500 In Water For Injection 1 100ml.bag @ 100 mls/hr IVPB Q1HR ELA Rx#: [id number] Sodium Chloride 0.9% 1, 130 000 ml @ 20 mls/hr IV . Q24H ELA Rx#:[id number] cefTRIAXone 2 gm In 100 Sodium Chloride 0.9% 50 ml @ 100 mls/hr IVPB Q24H ELA Rx#:[id number] metroNIDAZOLE-NS PMX 500 100 200 mg In Saline 1 100ml.bag @ 100 mls/hr IVPB Q8HR ELA Rx#:[id number] Intake, IV Titration 775 303.211 130.632 Amount Dextrose 5% in Water 1, 675 75 000 ml @ 125 mls/hr IV . Q8H ELA Rx#:[id number] Propofol 1,000 mg In 100 228.211 130.632 Empty Bag 1 bag @ Titrate IV .Q0M ELA Rx#: [id number] Oral 1200 Tube Feeding 450 580 360 Other 660 600 300 Output: Urine 2575 2870 2650 Other: Voiding Method Indwelling Catheter Indwelling Catheter Indwelling Catheter ABP, PAP, CO, CI - Last Documented Arterial Blood Pressure 102/102 - Exam - Constitutional General appearance: Intubated with tracheostomy tube int he neck obese - EENT Eyes: anicteric sclerae, PERRLA, normal appearance - Neck Neck: no rigidity, no stridor, no thyromegaly - Respiratory Respiratory: bilateral: CTA diminished air entry bilaterally with crackles at bases - Cardiovascular Rhythm: regular Heart sounds: normal: S1, S2 Abnormal Heart Sounds: no systolic murmur, no diastolic murmur, no rub, no S3 Gallop, no S4 Gallop, no click, no other - Gastrointestinal General gastrointestinal: normal bowel sounds, soft non tender - Integumentary Integumentary: no rash - Neurologic Neurologic: Could not be assessed - Musculoskeletal Musculoskeletal: Could not be assessed on sedation- Psychiatric Psychiatric: Agitated on sedation - Labs CBC & Chem 7: 05/13/19 05:25 05/13/19 05:25 Labs: Abnormal Lab Results - Last 24 Hours (Table) 05/12/19 05/12/19 05/12/19 Range/Units 17:54 19:12 20:48 RBC (4.30-5.90) m/uL Hgb (13.0-17.5) gm/dL Hct (39.0-53.0) % Lymphocytes # (1.0-4.8) k/uL ABG pH (7.35-7.45) ABG pO2 (83-108) mmHg ABG HCO3 (21-25) mmol/L ABG Total CO2 (19-24) mmol/L ABG O2 Saturation (94-97) % Sodium 152 H (137-145) mmol/L Potassium (3.5-5.1) mmol/L Chloride (98-107) mmol/L BUN (9-20) mg/dL Glucose (74-99) mg/dL POC Glucose (mg/dL) 149 H 130 H (75-99) mg/dL Osmolality (280-301) mosm/kg 05/12/19 05/13/19 05/13/19 Range/Units 23:50 04:57 05:25 RBC 3.93 L (4.30-5.90) m/uL Hgb 11.6 L (13.0-17.5) gm/dL Hct 36.4 L (39.0-53.0) % Lymphocytes # 0.9 L (1.0-4.8) k/uL ABG pH 7.49 H (7.35-7.45) ABG pO2 60 L (83-108) mmHg ABG HCO3 30 H (21-25) mmol/L ABG Total CO2 31 H (19-24) mmol/L ABG O2 Saturation 91.2 L (94-97) % Sodium (137-145) mmol/L Potassium (3.5-5.1) mmol/L Chloride (98-107) mmol/L BUN (9-20) mg/dL Glucose (74-99) mg/dL POC Glucose (mg/dL) 115 H (75-99) mg/dL Osmolality (280-301) mosm/kg 05/13/19 05/13/19 05/13/19 Range/Units 05:25 05:25 06:43 RBC (4.30-5.90) m/uL Hgb (13.0-17.5) gm/dL Hct (39.0-53.0) % Lymphocytes # (1.0-4.8) k/uL ABG pH (7.35-7.45) ABG pO2 (83-108) mmHg ABG HCO3 (21-25) mmol/L ABG Total CO2 (19-24) mmol/L ABG O2 Saturation (94-97) % Sodium 150 H (137-145) mmol/L Potassium 2.9 L (3.5-5.1) mmol/L Chloride 112 H (98-107) mmol/L BUN 33 H (9-20) mg/dL Glucose 154 H (74-99) mg/dL POC Glucose (mg/dL) 161 H (75-99) mg/dL Osmolality 321 H (280-301) mosm/kg 05/13/19 Range/Units 11:28 RBC (4.30-5.90) m/uL Hgb (13.0-17.5) gm/dL Hct (39.0-53.0) % Lymphocytes # (1.0-4.8) k/uL ABG pH (7.35-7.45) ABG pO2 (83-108) mmHg ABG HCO3 (21-25) mmol/L ABG Total CO2 (19-24) mmol/L ABG O2 Saturation (94-97) % Sodium (137-145) mmol/L Potassium (3.5-5.1) mmol/L Chloride (98-107) mmol/L BUN (9-20) mg/dL Glucose (74-99) mg/dL POC Glucose (mg/dL) 137 H (75-99) mg/dL Osmolality (280-301) mosm/kg Microbiology - Last 24 Hours (Table) 05/10/19 20:00 Gram Stain - Preliminary Sputum Sputum Culture - Preliminary Presumptive Staph aureus 05/12/19 15:32 Stool Culture - Preliminary Stool 05/12/19 16:00 Catheter Tip Culture - Preliminary Picc Line 05/10/19 15:21 Blood Culture - Preliminary Blood No Growth after 48 hours 05/10/19 15:15 Blood Culture - Preliminary Blood No Growth after 48 hours Assessment and Plan Plan: 1. Abdominal pain, possible colitis, possible malignancy of the cecum, neither have been ruled out but CEA is less than 0.5.. Dr. Aranda following general surgery, patient still has no bowel movement since admission. Continue IV fluids, continue Zosyn, vancomycin and Eraxis. Barium study as above. 2. Acute vent dependent respiratory failure with aspiration pneumonia, vent placement 05/04/2019 second episode. On the Haldol and Seroquel for agitation 3. Severe sepsis secondary to staph species sputum culture, bacteremia with Pooja albicans, arising from multifocal pneumonia. Continue Zosyn, vancomycin and Eraxis. 4. ARDS secondary to multifocal pneumonia, patient's on Eraxis, consult Dr. Kennedy. And, as and Zosyn discontinued and patient placed on ceftriaxone and Flagyl 23/04 5. Acute hypoxic and hypercapnic respiratory failure with bilateral pulmonary infiltrates and masslike consolidation in the right lower lobe most likely secondary to massive aspiration pneumonia initial episode, acute respiratory distress syndrome. Patient is status post bronchoscopy. Patient is status post trach. 6. Mild COPD exacerbation. Continue DuoNeb treatments every 4 hours as needed. Patient was given 3 doses of steroids 7. Diabetes mellitus type 2, insulin requiring, uncontrolled with hyperglycemia. Metformin on hold. Levemir 8 units daily, NovoLog scale 8. Generalized anxiety disorder. Citalopram 40 mg daily on hold. 9. Abdominal distention secondary to ileus. NG tube. Consult with Dr. Aranda . 10. Obstructive sleep apnea noncompliant with CPAP. 11. Blood culture with coag-negative staph, contamination. Candidemia with positive blood cultures, positive central line catheter tip. Continue Eraxis. 12. Delirium tremens, resolved. 13. Severe protein calorie malnutrition. Continue tube feedings at 13 ML's per hour. Possible Dobbhoff placement for feedings. 14. Sepsis, high-grade fevers noted, pending cultures has been obtained sputum urine and catheter tipfrom 05/04/2019. Consult with Dr. Kennedy 15 Hypertension with episode of accelerated hypertension. Continue Lopressor IV, hydralazine, Vasotec as needed Gastroesophageal reflux disease and GI prophylaxis. Continue Protonix. DVT prophylaxis. Heparin subcu. prognosis guarded, critically ill Discharge plan: To be determined.
[2019-05-13 17:16] LABS: Glucose,Whole Blood 150 mg/dL (75-99)
[2019-05-13] MEDS ORDERED: QUEtiapine 100 MG TAB PO SCH (21:00)
[2019-05-13 21:17] LABS: Glucose,Whole Blood 149 mg/dL (75-99)
[2019-05-13] MEDS: INSULIN DETEMIR (LEVEMIR) 100 UNIT/ML SYR SQ SCH (21:18)
--- NOTE | 2019-05-13 23:26 | PN ---
PROGRESS NOTE DATE OF SERVICE: 05/13/2019. REASON FOR FOLLOW UP: 1. Candidemia. 2. Pneumonia. 3. Low-grade fever. 4. Elevated white count. INTERVAL HISTORY: The patient is currently afebrile. The T-max for the last 234 hours has been 99.9. The patient is hemodynamically stable. Not on any pressor support. Has been tolerating his tube feeds. Still has some diarrhea, but no worsening reported by the nursing staff. PHYSICAL EXAMINATION: Blood pressure 152/95 with a pulse of 102, temperature of 99.9. He is 96% on 30% FiO2. General description is an elderly male lying in bed in no distress. Respiratory system: Unlabored breathing with decreased breath sounds at bases. No wheeze. Heart S1, S2. Regular rate and rhythm. Abdomen soft, no tenderness. LABS: Hemoglobin is 11.7, white count of 8.3, BUN of 33, creatinine 0.97. Blood culture repeat has been negative. Sputum with Staph aureus. Catheter tip cultures have been negative so far. DIAGNOSTIC IMPRESSION AND PLAN: 1. Patient with candidemia positive blood culture with Pooja albicans, catheter was also positive. The patient did have a CT abdomen and pelvis. No evidence of any Abscess Currently on Eraxis to continue to finish a 2 week course of therapy from negative blood culture. 2. The patient with possible aspiration pneumonia, sputum has been MSSA. The patient is currently covered with Rocephin and Flagyl to continue. We will monitor his clinical course closely. Dr. Kennedy will resume the care tomorrow. MMDANIELLEL / CYNTHIAN: [id number] / MTDBrittany
[2019-05-13 23:58] LABS: Glucose,Whole Blood 151 mg/dL (75-99)
[2019-05-14] MEDS: INSULIN ASPART (NovoLOG) 100 UNIT/ML VIAL SQ SCH ×3 (00:11→12:30)
[2019-05-14] MEDS: HYDROmorphone 0.5 MG/0.5 ML SYRINGE IVP PRN ×6 (00:12→16:52)
[2019-05-14] MEDS: IBUPROFEN ORAL SUSP 100 MG/5 ML CUP PO PRN (00:12)
[2019-05-14] MEDS: metroNIDAZOLE-NS PMX 500 MG in SALINE 1 100ML.BAG IVPB SCH ×3 (00:12→15:54)
[2019-05-14] MEDS: METOCLOPRAMIDE 5 MG/ML 2 ML VIAL IVP SCH ×3 (00:12→12:30)
[2019-05-14 00:24] LABS: African American GFR (CKD) >90 (>60 ml/min/1.73 sqM); Anion Gap 10 mmol/L; Blood Urea Nitrogen 32 mg/dL (9-20); Calcium 9.8 mg/dL (8.4-10.2); Carbon Dioxide 27 mmol/L (22-30); Chloride 109 mmol/L (98-107); Glucose 174 mg/dL (74-99); Potassium 3.3 mmol/L (3.5-5.1); Sodium 146 mmol/L (137-145)
[2019-05-14] MEDS: ARTIFICIAL TEARS-HYPROMELLOSE DROPS 15 ML BTL BOTH EYES SCH ×5 (00:36→15:54)
[2019-05-14] MEDS ORDERED: POTASSIUM BICARBONATE/CIT AC 20 MEQ TABLET.EFF NG-TUBE SCH ×2 (01:00→05:00)
[2019-05-14] MEDS ORDERED: POTASSIUM CHLORIDE 10 MEQ in WATER FOR INJECTION 1 100ML.BAG IVPB SCH (01:00)
[2019-05-14] MEDS: POTASSIUM CHLORIDE ER 20 MEQ TAB.ER PO SCH ×2 (01:06→03:34)
[2019-05-14] MEDS: IPRATROPIUM-ALBUTEROL 3 ML NEB INHALATION SCH ×4 (03:19→15:28)
[2019-05-14] MEDS: DEXTROSE 5% IN WATER 1,000 ML IV SCH ×2 (03:33→15:57)
[2019-05-14 04:42] LABS: ABG Base Excess 8.2 mmol/L; ABG HCO3 31 mmol/L (21-25); ABG Oxygen Saturation 95.6 % (94-97); ABG PCO2 39 mmHg (35-45); ABG PH 7.51 (7.35-7.45); ABG PO2 77 mmHg (83-108); ABG TCO2 32 mmol/L (19-24); Allen Test Performed? Yes
[2019-05-14 04:43] LABS: HCT 38.3 % (39.0-53.0); Hypochromasia Slight; MCH 29.3 pg (25.0-35.0); MCHC 31.4 g/dL (31.0-37.0); MCV 93.4 fL (80.0-100.0); Mean Platelet Volume 7.8; Platelet Count 339 k/uL (150-450); RDW 14.9 % (11.5-15.5); WBC 8.1 k/uL (3.8-10.6)
[2019-05-14 04:51] LABS: African American GFR (CKD) >90 (>60 ml/min/1.73 sqM); Anion Gap 10 mmol/L; Blood Urea Nitrogen 32 mg/dL (9-20); Calcium 9.5 mg/dL (8.4-10.2); Carbon Dioxide 27 mmol/L (22-30); Chloride 109 mmol/L (98-107); Glucose 152 mg/dL (74-99); Potassium 3.7 mmol/L (3.5-5.1); Sodium 146 mmol/L (137-145)
[2019-05-14 05:59] LABS: Glucose,Whole Blood 150 mg/dL (75-99)
--- NOTE | 2019-05-14 08:47 | XR ---
EXAMINATION TYPE: XR chest 1V portable DATE OF EXAM: 05/14/2019 COMPARISON: 05/13/2019 HISTORY: Shortness of breath TECHNIQUE: Single frontal view of the chest is obtained. FINDINGS: Bilateral airspace disease and pleural effusion stable. Feeding tube, tracheostomy tube sta ble. No pneumothorax. Tip of the feeding tube appears in the gastric fundus. IMPRESSION: Bilateral airspace disease and pleural effusion stable correlate for pneumonia or CHF.
[2019-05-14] MEDS: FUROSEMIDE 10 MG/ML 4 ML VIAL IV SCH (09:09)
[2019-05-14] MEDS: PANTOPRAZOLE 40 MG/10 ML VIAL IV SCH (09:09)
[2019-05-14] MEDS: ANIDULAFUNGIN 100 MG in SODIUM CHLORIDE 0.9% 100 ML IVPB SCH (09:09)
[2019-05-14] MEDS: CHLORHEXIDINE GLUCONATE 15 ML CUP MUCOUS MEM SCH (09:09)
[2019-05-14] MEDS: HEPARIN SODIUM,PORCINE 5,000 UNIT/ML 1 ML VIAL SQ SCH (09:10)
[2019-05-14] MEDS: HALOPERIDOL LACTATE 5 MG/ML 1 ML VIAL IVP SCH (09:10)
[2019-05-14] MEDS ORDERED: cloNIDine 0.1 MG/24HR PATCH TRANSDERM SCH (10:00)
[2019-05-14] MEDS: QUEtiapine 25 MG TAB PO SCH (10:30)
--- NOTE | 2019-05-14 11:29 | P.PN ---
Subjective Progress Note Date: 05/14/19 CHIEF COMPLAINT: Abdominal pain HISTORY OF PRESENT ILLNESS: Patient remains in the ICU. He is on mechanical ventilation. Tube feeding infusing. He is tolerating well. Having bowel movements. FMS intact. Low grade temp this morning. WBC 8.1. PHYSICAL EXAM: VITAL SIGNS: Reviewed. GENERAL: Well-developed on mechanical ventilation. HEENT: Trach site without bleeding or signs of infection. Dobbhoff catheter noted. No sclera icterus. Extraocular movements grossly intact. Moist buccal mucosa. Head is atraumatic, normocephalic. Neck supple without lymphadenopathy. CHEST: Non-labored respirations and equal bilateral excursions on mechanical ventilation CARDIOVASCULAR: Regular rate with regular rhythm. Palpable 2+ radial pulses. ABDOMEN: Soft. Nondistended. Positive bowel sounds. MUSCULOSKELETAL: No clubbing or cyanosis. No gross deformity of extremities. NEUROLOGIC: No focal or lateralizing signs. PSYCH: Awake. Slightly anxious. Remains on mechanical ventilation. SKIN: Well perfused. Good skin turgor. ASSESSMENT: 1. Abdominal pain 2. Marked wall thickening of cecum, possible malignancy versus nonspecific colitis 3. S/P Trach PLAN: Trach management per Dr. Caballero Continue tube feedings Continue antibiotics. Infectious disease following. Possible discharge to [facility] today per nursing If patient is not discharged today, he will tentatively be scheduled for PEG tube insertion tomorrow with Dr. Aranda Nurse practitioner note has been reviewed by physician. Signing provider agrees with the documented findings, assessment, and plan of care. Objective - Vital Signs Vital signs: Vital Signs Temp 100.5 F H 05/14/19 11:00 Pulse 98 05/14/19 11:00 Resp 22 05/14/19 10:30 BP 143/98 05/14/19 11:00 Pulse Ox 99 05/14/19 11:00 Intake & Output 05/13/19 05/14/19 05/14/19 18:59 06:59 18:59 Intake Total 3135.632 3002.5 780 Output Total 3050 2890 2175 Balance 85.632 112.5 -1395 Weight 97.2 kg Intake: IV 1925 1662.5 700 Anidulafungin 100 mg In 100 100 Sodium Chloride 0.9% 100 ml @ 84 mls/hr IVPB DAILY [facility] Rx#:[id number] Dextrose 5% in Water 1, 1125 1562.5 500 000 ml @ 125 mls/hr IV . Q8H [facility] Rx#:[id number] Potassium Chloride 10 meq 500 In Water For Injection 1 100ml.bag @ 100 mls/hr IVPB Q1HR [facility] Rx#: [id number] metroNIDAZOLE-NS PMX 500 200 100 100 mg In Saline 1 100ml.bag @ 100 mls/hr IVPB Q8HR [facility] Rx#:[id number] Intake, IV Titration 130.632 Amount Propofol 1,000 mg In 130.632 Empty Bag 1 bag @ Titrate IV .Q0M [facility] Rx#: [id number] Tube Feeding 480 640 80 Lipid 100 cefTRIAXone 2 gm In 100 Sodium Chloride 0.9% 50 ml @ 100 mls/hr IVPB Q24H [facility] Rx#:[id number] Other 600 600 Output: Urine 3050 2890 2175 Other: Voiding Method Indwelling Catheter Indwelling Catheter Indwelling Catheter # Voids 1 ABP, PAP, CO, CI - Last Documented Arterial Blood Pressure 102/102 - Labs CBC & Chem 7: 05/14/19 04:04 05/14/19 04:04 Labs: Abnormal Lab Results - Last 24 Hours (Table) 05/13/19 05/13/19 05/13/19 Range/Units 05:25 11:28 17:13 RBC (4.30-5.90) m/uL Hgb (13.0-17.5) gm/dL Hct (39.0-53.0) % ABG pH (7.35-7.45) ABG pO2 (83-108) mmHg ABG HCO3 (21-25) mmol/L ABG Total CO2 (19-24) mmol/L Sodium (137-145) mmol/L Potassium (3.5-5.1) mmol/L Chloride (98-107) mmol/L BUN (9-20) mg/dL Glucose (74-99) mg/dL POC Glucose (mg/dL) 137 H 150 H (75-99) mg/dL Osmolality 321 H (280-301) mosm/kg 05/13/19 05/13/19 05/13/19 Range/Units 21:14 23:55 23:58 RBC (4.30-5.90) m/uL Hgb (13.0-17.5) gm/dL Hct (39.0-53.0) % ABG pH (7.35-7.45) ABG pO2 (83-108) mmHg ABG HCO3 (21-25) mmol/L ABG Total CO2 (19-24) mmol/L Sodium 146 H (137-145) mmol/L Potassium 3.3 L (3.5-5.1) mmol/L Chloride 109 H (98-107) mmol/L BUN 32 H (9-20) mg/dL Glucose 174 H (74-99) mg/dL POC Glucose (mg/dL) 149 H 151 H (75-99) mg/dL Osmolality (280-301) mosm/kg 05/14/19 05/14/19 05/14/19 Range/Units 04:04 04:04 04:41 RBC 4.10 L (4.30-5.90) m/uL Hgb 12.0 L (13.0-17.5) gm/dL Hct 38.3 L (39.0-53.0) % ABG pH 7.51 H (7.35-7.45) ABG pO2 77 L (83-108) mmHg ABG HCO3 31 H (21-25) mmol/L ABG Total CO2 32 H (19-24) mmol/L Sodium 146 H (137-145) mmol/L Potassium (3.5-5.1) mmol/L Chloride 109 H (98-107) mmol/L BUN 32 H (9-20) mg/dL Glucose 152 H (74-99) mg/dL POC Glucose (mg/dL) (75-99) mg/dL Osmolality (280-301) mosm/kg 05/14/19 Range/Units 05:20 RBC (4.30-5.90) m/uL Hgb (13.0-17.5) gm/dL Hct (39.0-53.0) % ABG pH (7.35-7.45) ABG pO2 (83-108) mmHg ABG HCO3 (21-25) mmol/L ABG Total CO2 (19-24) mmol/L Sodium (137-145) mmol/L Potassium (3.5-5.1) mmol/L Chloride (98-107) mmol/L BUN (9-20) mg/dL Glucose (74-99) mg/dL POC Glucose (mg/dL) 150 H (75-99) mg/dL Osmolality (280-301) mosm/kg Microbiology - Last 24 Hours (Table) 05/10/19 20:00 Gram Stain - Final Sputum Sputum Culture - Final Staphylococcus aureus 05/12/19 16:00 Catheter Tip Culture - Preliminary Picc Line 05/10/19 15:21 Blood Culture - Preliminary Blood No Growth after 72 hours 05/10/19 15:15 Blood Culture - Preliminary Blood No Growth after 72 hours Assessment and Plan (1) Abdominal pain Current Visit: Yes Status: Acute Code(s): R10.9 - UNSPECIFIED ABDOMINAL PAIN SNOMED Code(s): 18111873 (2) Leukocytosis Current Visit: Yes Status: Acute Code(s): D72.829 - ELEVATED WHITE BLOOD CELL COUNT, UNSPECIFIED SNOMED Code(s): 254248173 (3) Respiratory failure Current Visit: Yes Status: Acute Code(s): J96.90 - RESPIRATORY FAILURE, UNSP, UNSP W HYPOXIA OR HYPERCAPNIA SNOMED Code(s): 976762229 (4) Status post tracheostomy Current Visit: Yes Status: Acute Code(s): Z93.0 - TRACHEOSTOMY STATUS SNOMED Code(s): 865236212
--- NOTE | 2019-05-14 11:30 | P.DS ---
Providers Date of admission: 04/16/19 00:48 Expected date of discharge: 05/14/19 Attending physician: Nereyda Bergeron Consults: 04/17/19 19:58 Consult Physician Urgent Consulting Provider: Vinh Caballero Consult Reason/Comments: ICU Do you want consulting provider notified?: Already Contacted 04/18/19 11:51 Consult Physician Stat Consulting Provider: Azam Aranda Consult Reason/Comments: change of service, colitis, bowel dilation Do you want consulting provider notified?: Already Contacted 05/05/19 14:13 Consult Physician Routine Consulting Provider: Andrei Kennedy Consult Reason/Comments: fever Do you want consulting provider notified?: Yes 05/05/19 16:25 Consult Physician Routine Consulting Provider: Migel Becerril Consult Reason/Comments: elevated troponin Do you want consulting provider notified?: Yes Primary care physician: Martin Gallardo [facility] Hospital Course: This is a 69-year-old male patient of Dr. Gallardo with past medical history of hypertension, hyperlipidemia, COPD, gastroesophageal reflux disease, remote history of tobacco use, obstructive sleep apnea not using CPAP. Patient complains of sudden onset of abdominal pain starting on Tuesday. He also complains of bloating in the abdomen for the past couple months as well as weight loss of 5-10 pounds over the past 3 months. He complains of decreased appetite. He states he has had occasional burgundy stools. He denies any black stools, no diarrhea, no vomiting. He denies any urinary symptoms. Patient states he had his last colonoscopy in 2013 which was normal. Patient presents to [facility] emergency center for evaluation. Abdominal x-ray shows no acute findings. CAT scan of the abdomen and pelvis showed marked thickening of the cecum concerning for malignancy. A nonspecific colitis is not excluded but felt to be less likely. Thickening in the gastric rugae which may be secondary to under distention versus a nonspecific gastritis. EKG is a sinus tachycardia with right bundle branch block, left AFB. WBC 16.7, hemoglobin 14.7, creatinine 0.74. Troponin negative. Amylase and lipase, liver function tests all normal. Urinalysis was clear with 1+ protein. Patient was admitted to the [facility] floor, consult with Dr. Givens, IV fluids, pain medications and Zofran. Plan is for colonoscopy tomorrow. 04/17: Overnight, patient developed acute respiratory failure and was transferred to the intensive care unit and patient placed on BiPAP, currently under care of Dr. Caballero. Patient subsequently intubated and placed on mechanical ventilat ion. Echocardiogram from yesterday reveals EF 55-60% with moderate concentric left ventricle hypertrophy, trace mitral regurgitation, trace tricuspid regurgitation, no pulmonary hypertension. No pericardial effusion. Chest x-ray shows new right basilar and pneumonic consolidation with diminished inspiration background right hilar and left basilar more patchy edema and or infiltrate felt present. Repeat chest x-ray shows new endotracheal tube with placement described with recommendations to pullback. Mild cardiomegaly and low lung volumes with bilateral hilar edema and/or infiltrate and right basilar consolidation all redemonstrated increasing left basilar infiltrate felt present. Abdomen was more distended and NG tube was placed. Immediate surgical consultation was requested by Dr. Caballero. Dr. Givens attempted bedside colonoscopy but patient was not properly prepped. He is scheduled for CAT scan of the abdomen and pelvis this afternoon at 2:30. NG tube is in place with bile color returned. Family members are in the waiting room and have been updated. 04/18: The patient remains in intensive care unit intubated and on mechanical ventilation. Vent settings have been decreased and no plan for sedation holiday today. He was weaned off norepinephrine this morning. Urine output has been 50-75 mL per hour. Noted that the Goldberg tube is pink but urine is alesia most likely a drug reaction. Patient has had several bowel movements this morning. Antibiotics have been switched to Zosyn and vancomycin. TSH 0.224 with normal free T4 at 1.24. Surgical consultation has been changed to Dr. Aranda per family wishes. 04/19: Patient remains in intensive care unit intubated and on mechanical ventilation. Patient has had increased purulent secretions and underwent reintubation by Dr. Caballero. He also perform bronchoscopy at the bedside and suction 20 ML's purulent material specimen was sent to the lab for cytology and culture. He is concern for ARDS. Patient is continued on Zosyn and vancomycin. He has been off vasopressors since yesterday morning. Patient has had a small amount of liquid stool today much decreased from yesterday. Dr. Aranda is on for surgery at this point. Patient is having minimal output from NG tube. Bowel sounds remain hypoactive. Consult has been added for GI regarding concern for ischemic colitis. 04/20: Patient remains intubated and on mechanical ventilation. Repeat chest x- ray shows continued mild to moderate heart failure. Small to moderate effusions with prominent bibasilar atelectasis and/or consolidation persists. Dr. Aranda is planning for bedside colonoscopy today. Patient was ordered for soapsuds enema last night and this morning. Tube feedings on hold. He has been afebrile, heart rate in the 50s and 60s, blood pressure 141/66. Pulse ox 99%. WBC 8.1, hemoglobin 11.2. Creatinine 0.65. Bronchial washing cytology is pending. Bronchial cultures in progress. Patient will need to start tube feedings or TPN depending on results of colonoscopy scheduled for this afternoon. Patient was given 1 dose of IV Lasix this morning and is diuresing well. Family in the waiting room have been updated. 04/21: Patient remains in the bed, FiO2 40%, PEEP of 6, NG tube has been placed and had taken out the OG tube, fecaloid billous contents are observed in the NG tube, bowel sounds are very diminished today, no bowel movements over the past 24 hours, x-rays of the abdomen will be done to evaluate for progressive bowel obstruction, patient remains to be afebrile, no leukocytosis bronchial washing cultures shows no normal zander vital signs are stable no hypotensive events, patient is slightly hypotensive on IV Solu-Medrol 40 every 8 04/23: Patient remains intubated and on mechanical ventilation. Dr. Dunham does not plan for attempt at weaning today. He is started him on hydralazine for blood pressure control. Patient has been started on TPN. On Tuesday, patient underwent colonoscopy with Dr. Aranda that revealed reticulosis, tortuous colon and recommends once patient is off ventilation to have barium enema to evaluate the ileocecal valve. Keep NG tube post extubation and hold tube feedings for no w. No bowel movement today. 04/24: Patient had a rough night became significantly hypertensive, tachypneic and tachycardic. Patient was started on labetalol drip once other options were attempted without success and this was weaned off this morning. Patient also was placed on Nimbex and fentanyl drip which are to be weaned off today. Chest x-ray shows worsening interstitial infiltrates bilaterally and possible interstitial edema. Dr. Dunham increase Lasix to 40 mg IV push every 12 hours. Patient has not had a bowel movement. He remains on TPN and NG tube to suction. Urine output is adequate, tea-colored. Discussed yesterday the possibility of needing a trach and PEG with family members. At this time, Dr. Dunham would like to hold off. 04/25: Patient is still sedated on mechanical ventilation he had failed his weaning parameter today I want to see him when the and the son were in the room door tachycardia with Dr. dao about further plan. Pulmonary and from medicine standpoint patient most likely will need to go to trach no PEG tube can be done for now expected the plan probably for Tuesday and from thereon if more stable can go for his barium enema to come with final diagnosis of the tumor or the finding in the cecum and the large intestine and from thereon further management can be planned. Patient still on multiple drips for pain management let pressure TPN and DT. 04/26: A Chin still on mechanical ventilation, sedated, he is slightly bit awaking when backing off on sedation is still very agitated between having quite bed elevated blood pressure and pulse rate did not succeed on weaning parameter and most likely he will need tracheostomy by tomorrow. PEG tube is negative be possible at this point because of the possibility of mass in the cecum with obs truction cankerous problem if he is more stable can go for barium enema and then PEG tube if there is no cecal mass likely his CEA came back negative. 04/27 patient examined bedside currently intubated D 10. Patient came in with abdominal pain, nausea, vomiting followed by a respiratory failure the next day leading to intubation. Patient is found to be agitated him on ventilator. Currently requiring 75 mics of propofol. On vital evaluation patient had a heart rate of 77 respiratory rate 26 blood pressure 159/62 on clear with pain drip abdominal x-ray this morning shows nonspecific bowel pattern with the bilateral pleural effusion chest x-ray suggestive of pulmonary edema versus consolidation. Patient is currently on Lasix 40 mg IV twice a day and making good urine output 75 mL per hour. Blood cultures so far negative. Bronchoscopy results are negative so far. Plan for tracheostomy placement today. PEG tube is on hold until further information about the cecal mass/colitis. 04/28: Examined at bedside currently on CPAP. Patient was on a sedation holiday for approximately 1 hour sedation has been increased due to fatigue and agitation. Vital signs have been stable blood pressure 151/60 pulse ox a 97% on CPAP pulse rate 98. Patient was able to follow commands however weak. Patient was able to nod head and answer actions appropriately. Family at the bedside discussing plan of care. Continue nutritional support with TPN. 04/29: Patient examined bedside currently on CPAP tolerating. Patient is more alert today compared to yesterday. Patient is able to follow commands movements are weak and nods head appropriately to questions. Patient is on propofol at 10 at this time. She was on a sedation holiday however heart rate and blood pressure increase. Urinary output approximately 60-70 ML's per hour. Patient has not had a bowel movement continues with NG suction approximately 600-700 ML's output in 24 hours. 04/30: Patient is sitting up in bed does appear in less distress today he continues to have the trach in place we're trying to the patient on the ventilator hopefully he will be on trach collar tomorrow morning, family were at the bedside and updated about his situation he will be weaned off sedation completely liver on today he does not appear to be in acute distress at this time, we will hold off transfer the patient until after he weaned off. 05/01: Patient is sitting up in bed he is more awake and more alert is moving all his extremities currently has a trach collar in place, he continued to follow commands appropriately, his family were at the bedside and updated about his current situation. 05/02: Patient is sitting up in bed he continues to have ended in place, he continues to have the trach collar in place, is moving all his extremities, he is feeling better today he has no abdominal pain, he has not passed any gas and he has not had a bowel movement. 05/03: Patient remains in the intensive care unit. He has undergone barium enema today which revealed limited single contrast barium enema. Limited distention of the left side of the colon. There is proximal to mid sigmoid diverticulosis. There he reaches the cecum and refluxes multiple distal ileal loops. There is subtle contour irregularity of the cecum and mucosal lesion or colitis here is difficult to exclude. No frankly constricting lesion is seen. Repeat chest x- ray reveals correlate for congestive heart failure, pneumonia not excluded. Patient has been continued on TPN. Patient has a trach collar place at 28%. He has been hemodynamically stable. Not requiring vasopressors. Temperature max 100.0. White count is 12.7, potassium 3.4, creatinine 0.61. Blood sugars running between 155 and 181. 05/04: Patient remains in intensive care unit. Patient pulled his NG tube out yesterday and Dr Aranda to reevaluate as he did fail swallow evaluation. Speech therapy will reevaluate today as well. Patient is scheduled for PICC line placement today for TPN and central line will then be removed. Abdomen is soft. He has had good urine output. His temperature max 101.2 axillary. He is on IV Tylenol. Patient has worked with PT and OT and up to a chair. He is extremely fatigued following this activity. Patient will have an extended recovery phase. Ativan will be changed to only at bedtime if needed and Toradol added for pain versus Dilaudid. 05/05: Patient has worsened overnight, persistent fevers now high temperature of 10-103, patient was given cooling blanket, patient was seen in ICU, pancultures were obtained, patient's diaphoretic, tachypneic, labored breathing, pulmonary has restarted him on vent support through trach collar, significant tachypnea,. I requested infectious disease to see him, Dr. Kennedy, secondary to decompensati on new high gradefevers,, troponins were ordered, EKG to be done, Solu-Medrol 3 doses to be given, patient has palate shallow ulcerations doesn't look viral, right decubitus stage II pressure ulcers, no petechiae or other rash noted,patient is on TPN, no bowel movement since admission per nursing staff 05/06, patient's fever has subsided, cultures from sputum shows presumptive staph aureus, usually in Yeast species, catheter tip Pooja albicans, patient is less tachypneic and is much more comfortable not in distress, steroids has been completed 3 doses, and has some hyperglycemia, on insulin drip at 22-25 units an hour, NPH was given early this morning at 3:00 and will be started on Levemir tonight 8 units starting 3 PM daily, patient is receiving 150 g of glucose per day from TPN. Patient currently is on vancomycin and Zosyn and anidulfungin by Dr. Kennedy. Cardiology has seen the patient, rule out SC with elevated troponin, most likely secondary to severe sepsis 05/07: Patient remains in intensive care unit on mechanical ventilation. Patient has been changed to DO NOT RESUSCITATE over the weekend. Patient has NG tube and we'll start tube feedings and plan. TPN. He has not had a bowel movement since April 19. Insulin drip will be transitioned over to long-acting Levemir and NovoLog scale. 05/08: Patient remains in the intensive care unit, on mechanical ventilation. Patient is still having intermittent fevers. Family history and CODE STATUS back to full code. He is on tube feedings at 13 ML's per hour which is current with no plan to increase this. Abdomen is soft but no bowel sounds. No stool. He is ordered for Dulcolax suppository this morning. KUB will be ordered. Patient failed a sedation holiday today. Urine output has been adequate. 05/09: Chest x-ray today showed diffuse lung disease stable. Feeding tube is extended in the left upper quadrant of the abdomen. Patient is currently off TPN and tube feedings are at 13 ML's per hour. Patient did have a small mucous- type bowel movement. Patient is on a daily Dulcolax suppository regime. We will add Reglan 5 mg 4 times daily. Patient is currently on sedation holiday. Plan is for possible Dobbhoff placement. Urine output has been adequate. Patient is continued on Antimicrobials in the form of Eraxis, Zosyn and vancomycin. Fevers are improving. 05/10, patient remains in ICU, he has been weaned off his propofol for sedation, still requiring Dilaudid for pain, has thick secretions from his trach, still requiring ventilatory support, no bowel movements except for some years, patient has postoperative bowel sounds on today's examination, the polyp is refusing vital HPI 13 mL an hour,stable labs no leukocytosis, hemoglobin 11.2, creatinine 0.5, CO2 of 21, sodium 145phosphorous now elevated at 5.1, dietary following hyperphosphatemia for the vital H PT-max today of 100.2 05/11: Patient remains in the intensive care unit. Patient was on sedation holiday yesterday from 2 PM until 10 PM and do to agitation, hypertension and tachycardia, who was resumed on sedation. Haldol did not seem to help. We will add in scheduled Haldol at 0.5 mg the morning and 1 mg at bedtime and continue t he as needed doses well. Sedation holiday in process for today. Patient is awake and able to nod to answer questions. Patient has Dobbhoff in place and feedings are at 13 ML's. Patient has not had a bowel movement but does have good bowel sounds and abdomen soft. Temperature max yesterday was up to 101.1, repeat blood cultures and sputum cultures were obtained. He has been afebrile overnight. Repeat chest x-ray shows bilateral airspace disease and pleural effusion stable correlate for pneumonia or heart failure. 05/12 patient remains in the ICU. He was off sedation yesterday but was put back on sedation because of agitation and tachycardia. Patient was off sedation for 3 hours today. The patient is able to answer yes and no questions and follow commands.patient continues to have a temp of 100.2 on Tylenol. PICC line and central line and sent for culture. Continue antibiotics and antifungal. White is assessed suggest temporal 100.2 pulse of 100 respiratory rate of 25 blood p ressure 160/86 saturating at 90% on 30% FiO2. Patient remains on ventilator. Morning dose of Haldol was held as patient did not have any agitation this morning.. evaluation of blood work patient had a hemoglobin of 12.4 stable. Arterial blood to suggest a pH of 7.47 pCO2 37 pO2 70. Sodium of 152. Potassium 2.8 chloride 118 calcium 10.3 EKG was ordered to suggest a QT interval well QT interval is elevated caution with QT prolonging medication including Haldol and Zofran. EKG suggested wide-complex tachycardia with prolonged QT. 05/13 patient remains in the ICU. Continues to be have brief episodes of agitation requiring high dose of Haldol. Patient does have QT prolongation and is at high risk of arrhythmia but due to increased agitation patient continues to get Haldol. Stat dose of Seroquel was given earlier today. We will decrease Seroquel to 25 twice a day and continue to watch for agitation. Patient is in delirium and responds minimally to commands. Vitals are stable with a pulse of 86 respiratory rate 25 blood pressure 147/93 on 30% FiO2 and 5 of PEEP and a tidal volume of 550 with assist control mode on ventilation. Patient is off sedation and is tolerating well with no episodes of tachycardia noted. Continues to be Eraxis with the vancomycin being discontinued. Ceftriaxone and Flagyl initiated by Dr. Son today Sodium is improved from 152-150. Dextrose 5% increase to 125 mL per hour. 05/14: Patient remains in the intensive care unit. Temperature max 100.4, heart rate 96, blood pressure 157/87, pulse ox 99% with FiO2 of 30. WBC 8.1, hemoglobin 12. Sodium 146, potassium 3.7, chloride 109, CO2 27, BUN 32 and creatinine 0.85. Blood sugars running 150s. PICC line was removed on May 12 and culture of catheter tip sent in progress. Repeat sputum culture showing presumptive staph aureus. Repeat blood cultures obtained on May 10 are showing no growth after 72 hours. Patient is currently on Eraxis, Rocephin and Flagyl. Patient is scheduled for PEG tube placement tomorrow. He is currently on the sedation holiday. He is able to follow commands and currently on CPAP mode. Urine output has been adequate. He did receive a dose of Lasix this morning. He continues to have liquid stool about 50 MLS per 4 hours. Seroquel was started yesterday. Anticipate discharge to [facility] once all arrangements are completed. Discharge diagnoses: 1. Abdominal pain, possible colitis, possible malignancy of the cecum, neither have been ruled out but CEA is less than 0.5. 2. Acute vent dependent respiratory failure with aspiration pneumonia, vent placement 05/04/2019 second episode. 3. Severe sepsis secondary to staph species sputum culture, bacteremia with Pooja albicans, arising from multifocal pneumonia. 4. ARDS secondary to multifocal pneumonia 5. Acute hypoxic and hypercapnic respiratory failure with bilateral pulmonary infiltrates and masslike consolidation in the right lower lobe most likely secondary to massive aspiration pneumonia initial episode, acute respiratory distress syndrome. 6. Mild COPD exacerbation. 7. Diabetes mellitus type 2, insulin requiring, uncontrolled with hy perglycemia. 8. Generalized anxiety disorder. 9. Abdominal distention secondary to ileus. 10. Obstructive sleep apnea noncompliant with CPAP. 11. Blood culture with coag-negative staph, contamination. 12. Candidemia with positive blood cultures, positive central line catheter tip, catheter associated candidemia. 13. Delirium tremens, resolved. 14. Severe protein calorie malnutrition. 15. Sepsis secondary to candidemia. 16 Hypertension with episode of accelerated hypertension. 17. Gastroesophageal reflux disease [facility]charge plan: [facility] Impression and plan of care have been directed as dictated by the signing physician. Destini Navarro nurse practitioner acting as scribe for signing physician. Patient Condition at Discharge: Stable Plan - Discharge Summary New Discharge Prescriptions: New Artificial Tears-Hypromellose [Artificial Tear Drops] 2 drops BOTH EYES Q4HR bottle cloNIDine 0.1 MG/24HR PATCH [Catapres-TTS] 1 patch TRANSDERM Q7D patch Ipratropium-Albuterol Nebulize [Duoneb 0.5 mg-3 mg/3 ml Soln] 3 ml INHALATION RT-Q4H ampul.neb Ipratropium-Albuterol Nebulize [Duoneb 0.5 mg-3 mg/3 ml Soln] 3 ml INHALATION RT-Q4H PRN ampul.neb PRN Reason: Shortness Of Breath Or Wheezing Heparin Sodium,Porcine [Heparin Sodium] 5,000 unit SQ Q12HR vial Insulin Detemir (Levemir) [Levemir] 8 unit SQ HS syr Ibuprofen Oral Susp [Motrin Oral Susp] 200 mg PO Q6H PRN ml PRN Reason: Fever And/Or Mild Pain INSULIN ASPART (NovoLOG) [NovoLOG (formulary)] 0 unit SQ Q6H vial Chlorhexidine Gluconate [Peridex] 15 ml MUCOUS MEM BID solution cefTRIAXone [Rocephin] 2 gm IVPB Q24H vial QUEtiapine [SEROquel] 25 mg PO BID tab Continue Metoclopramide [Reglan] 5 mg PO TID Discontinued Lisinopril 40 mg PO DAILY Citalopram Hydrobromide [Citalopram HBr] 40 mg PO DAILY Albuterol Inhaler [Ventolin Hfa Inhaler] 1 - 2 puff INHALATION RT-QID PRN PRN Reason: Shortness Of Breath Potassium Gluconate 99 mg PO DAILY Niacin 500 mg PO DAILY Esomeprazole Magnesium [NexIUM] 20 mg PO DAILY metFORMIN HCL [Glucophage] 500 mg PO BID Gemfibrozil [Lopid] 600 mg PO AC-BID Fish Oil/Dha/Epa [Fish Oil 1,200 mg Fish Oil] 1 cap PO DAILY Ubidecarenone [Co Q-10] 200 mg PO DAILY Rosuvastatin [Crestor] 20 mg PO DAILY Fluticasone/Salmeterol [Advair 500-50 Diskus] 1 puff INHALATION RT-BID Baclofen [Lioresal] 10 mg PO BID PRN PRN Reason: Muscle Pain Aspirin EC [Ecotrin Low Dose] 81 mg PO DAILY No Action HYDROcodone/APAP 7.5-325MG [[place] 7.5-325] 1 tab PO Q12H PRN PRN Reason: Pain Discharge Medication List HYDROcodone/APAP 7.5-325MG [[place] 7.5-325] 1 tab PO Q12H PRN 04/16/19 [History] Metoclopramide [Reglan] 5 mg PO TID 04/16/19 [History] Artificial Tears-Hypromellose [Artificial Tear Drops] 2 drops BOTH EYES Q4HR bottle 05/14/19 [Rx] Chlorhexidine Gluconate [Peridex] 15 ml MUCOUS MEM BID solution 05/14/19 [Rx] Heparin Sodium,Porcine [Heparin Sodium] 5,000 unit SQ Q12HR vial 05/14/19 [Rx] INSULIN ASPART (NovoLOG) [NovoLOG (formulary)] 0 unit SQ Q6H vial 05/14/19 [Rx] Ibuprofen Oral Susp [Motrin Oral Susp] 200 mg PO Q6H PRN ml 05/14/19 [Rx] Insulin Detemir (Levemir) [Levemir] 8 unit SQ HS syr 05/14/19 [Rx] Ipratropium-Albuterol Nebulize [Duoneb 0.5 mg-3 mg/3 ml Soln] 3 ml INHALATION RT-Q4H ampul.neb 05/14/19 [Rx] Ipratropium-Albuterol Nebulize [Duoneb 0.5 mg-3 mg/3 ml Soln] 3 ml INHALATION RT-Q4H PRN ampul.neb 05/14/19 [Rx] QUEtiapine [SEROquel] 25 mg PO BID tab 05/14/19 [Rx] cefTRIAXone [Rocephin] 2 gm IVPB Q24H vial 05/14/19 [Rx] cloNIDine 0.1 MG/24HR PATCH [Catapres-TTS] 1 patch TRANSDERM Q7D patch 05/14/19 [Rx] Follow up Appointment(s)/Referral(s): Martin Gallardo MD [Primary Care Provider] - 1 Week (after discharge from [facility] ) Patient Instructions/Handouts: Abdominal Pain (ED) Discharge Disposition[facility]
[2019-05-14 12:29] LABS: Glucose,Whole Blood 168 mg/dL (75-99)
--- NOTE | 2019-05-14 12:55 | P.PN ---
Subjective Progress Note Date: 05/14/19 Principal diagnosis: Acute hypoxic and hypercapnic respiratory failure secondary to aspiration pneumonia with prolonged ventilator dependent respiratory failure On 05/14/2019, patient remains in the ICU, remains on mechanical ventilation, his ventilator settings are presently at tidal volume of 550 assist control rate of 24 FiO2 of 30%, PEEP of 5. Patient is not on any propofol, he is receiving Haldol when necessary, remains on antibiotics and antifungal therapy. He is arousable, follows simple instructions, hence I recommended a trial of pressure support of 10 and CPAP. Family is at bedside, and they were updated on his condition. According to the nurses, he gets restless at times, and extremely agitated. But he seems to be calm today. Chest x-ray is basically the same continues to show some nonspecific parenchymal changes bilaterally. Improved compared to his baseline chest x-ray few weeks ago. Recent CT of the abdomen and pelvis showed no significant abnormalities. It did show infiltrative changes and atelectasis at the right lung base. ABG this morning showed a pO2 of 77 pCO2 of 39 pH of 7.51 lites are normal renal profile is normal. Recent Gram stain of the sputum showed staph aureus, MSSA. Objective - Vital Signs Vital signs: Vital Signs Temp 100.5 F H 05/14/19 12:00 Pulse 101 H 05/14/19 12:00 Resp 20 05/14/19 12:00 BP 130/83 05/14/19 12:00 Pulse Ox 99 05/14/19 12:00 Intake & Output 05/13/19 05/14/19 05/14/19 18:59 06:59 18:59 Intake Total 3135.632 3002.5 1245 Output Total 3050 2890 2425 Balance 85.632 112.5 -1180 Weight 97.2 kg Intake: IV 1925 1662.5 825 Anidulafungin 100 mg In 100 100 Sodium Chloride 0.9% 100 ml @ 84 mls/hr IVPB DAILY E[facility] Rx#:[id number] Dextrose 5% in Water 1, 1125 1562.5 625 000 ml @ 125 mls/hr IV . Q8H [facility] Rx#:[id number] Potassium Chloride 10 meq 500 In Water For Injection 1 100ml.bag @ 100 mls/hr IVPB Q1HR [facility] Rx#: [id number] metroNIDAZOLE-NS PMX 500 200 100 100 mg In Saline 1 100ml.bag @ 100 mls/hr IVPB Q8HR ELA Rx#:[id number] Intake, IV Titration 130.632 Amount Propofol 1,000 mg In 130.632 Empty Bag 1 bag @ Titrate IV .Q0M E[facility] Rx#: [id number] Tube Feeding 480 640 120 Lipid 100 cefTRIAXone 2 gm In 100 Sodium Chloride 0.9% 50 ml @ 100 mls/hr IVPB Q24H [facility] Rx#:[id number] Other 600 600 300 Output: Urine 3050 2890 2425 Other: Voiding Method Indwelling Catheter Indwelling Catheter Indwelling Catheter # Voids 1 ABP, PAP, CO, CI - Last Documented Arterial Blood Pressure 102/102 - Exam Physical Exam: Revealed a 69-year-old white male intubated, on mechanical ventilation via tracheostomy. Head: Atraumatic, normocephalic. Tracheostomy is intact. Dobbhoff tube is intact. HEENT:[Neck is supple.] [No neck masses.] [No thyromegaly.] [No JVD.]PERRLA, EOMI, no icterus. Chest: [Crackles at the bases no rhonchi and no wheezes. Cardiac Exam: [Normal S1 and S2, no S3 gallop, no murmur.] Abdomen: [slightly distended, no tenderness, no rebound, no guarding, no bowel sounds. Extremities: [No clubbing, 1+ bipedal edema, no cyanosis.] Neurological Exam: Arousable follows simple instructions, Lymphatics: No lymphadenopathy. Psychiatric: Could not be addressed or assessed.] Skin: No rashes - Labs CBC & Chem 7: 05/14/19 04:04 05/14/19 04:04 Labs: Abnormal Lab Results - Last 24 Hours (Table) 05/13/19 05/13/19 05/13/19 Range/Units 05:25 17:13 21:14 RBC (4.30-5.90) m/uL Hgb (13.0-17.5) gm/dL Hct (39.0-53.0) % ABG pH (7.35-7.45) ABG pO2 (83-108) mmHg ABG HCO3 (21-25) mmol/L ABG Total CO2 (19-24) mmol/L Sodium (137-145) mmol/L Potassium (3.5-5.1) mmol/L Chloride (98-107) mmol/L BUN (9-20) mg/dL Glucose (74-99) mg/dL POC Glucose (mg/dL) 150 H 149 H (75-99) mg/dL Osmolality 321 H (280-301) mosm/kg 05/13/19 05/13/19 05/14/19 Range/Units 23:55 23:58 04:04 RBC 4.10 L (4.30-5.90) m/uL Hgb 12.0 L (13.0-17.5) gm/dL Hct 38.3 L (39.0-53.0) % ABG pH (7.35-7.45) ABG pO2 (83-108) mmHg ABG HCO3 (21-25) mmol/L ABG Total CO2 (19-24) mmol/L Sodium 146 H (137-145) mmol/L Potassium 3.3 L (3.5-5.1) mmol/L Chloride 109 H (98-107) mmol/L BUN 32 H (9-20) mg/dL Glucose 174 H (74-99) mg/dL POC Glucose (mg/dL) 151 H (75-99) mg/dL Osmolality (280-301) mosm/kg 05/14/19 05/14/19 05/14/19 Range/Units 04:04 04:41 05:20 RBC (4.30-5.90) m/uL Hgb (13.0-17.5) gm/dL Hct (39.0-53.0) % ABG pH 7.51 H (7.35-7.45) ABG pO2 77 L (83-108) mmHg ABG HCO3 31 H (21-25) mmol/L ABG Total CO2 32 H (19-24) mmol/L Sodium 146 H (137-145) mmol/L Potassium (3.5-5.1) mmol/L Chloride 109 H (98-107) mmol/L BUN 32 H (9-20) mg/dL Glucose 152 H (74-99) mg/dL POC Glucose (mg/dL) 150 H (75-99) mg/dL Osmolality (280-301) mosm/kg 05/14/19 Range/Units 12:26 RBC (4.30-5.90) m/uL Hgb (13.0-17.5) gm/dL Hct (39.0-53.0) % ABG pH (7.35-7.45) ABG pO2 (83-108) mmHg ABG HCO3 (21-25) mmol/L ABG Total CO2 (19-24) mmol/L Sodium (137-145) mmol/L Potassium (3.5-5.1) mmol/L Chloride (98-107) mmol/L BUN (9-20) mg/dL Glucose (74-99) mg/dL POC Glucose (mg/dL) 168 H (75-99) mg/dL Osmolality (280-301) mosm/kg Microbiology - Last 24 Hours (Table) 04/19/19 09:28 Fungal Culture - Preliminary Bronchoalviolar Lavage - Left 05/10/19 20:00 Gram Stain - Final Sputum Sputum Culture - Final Staphylococcus aureus 05/12/19 16:00 Catheter Tip Culture - Preliminary Picc Line 05/10/19 15:21 Blood Culture - Preliminary Blood No Growth after 72 hours 05/10/19 15:15 Blood Culture - Preliminary Blood No Growth after 72 hours Assessment and Plan Assessment: Impression: 1 acute hypoxic and hypercapnic respiratory failure secondary to aspiration pneumonia, and prolonged course of mechanical ventilation, patient remains ventilator dependent. 2 abdominal distention, workup has been nondiagnostic, patient is back on ent eral feeding via Dobbhoff tube. 3 acute systemic candidemia, positive cultures in the blood and urine, remains on Eraxis. 4 MSSA pneumonia, remains on Zosyn. 5 multiple comorbidities including hypertension, obstructive sleep apnea syndrome, obesity, alcoholism, and paroxysmal atrial fibrillation. Recommendation: Continue present supportive care measures, continue antibiotics and antifungal therapy, continue bronchodilators, continue enteral feeding, patient is hemodynamically stable, not requiring any pressors at this point, patient will be given a trial of weaning with pressure support of 10 and CPAP, will [facility]. Updated his family at his condition. Long-term prognosis remains poor and guarded. Patient remains critically ill. But has made a significant improvement over the last 3 weeks. We will continue to follow. Family again is updated on his condition. Critical care time is 35 minutes Time with Patient: Greater than 30
--- NOTE | 2019-05-14 12:58 | XR ---
EXAMINATION TYPE: XR abdomen 1V DATE OF EXAM: 05/10/2019 COMPARISON: NONE HISTORY: Placement TECHNIQUE: One view abdominal series FINDINGS: Limited imaging of the upper abdomen on the left is submitted with contrast in the bowel. Tip of the Dobbhoff tube appears to be at the level the gastric fundus. Hypertrophic and degenerative change of the spine. IMPRESSION: 1. Limited exam demonstrates the tip of the Dobbhoff tube at the level of the gastric fundus GE junct ion. 2. There is a lucency near the right hemidiaphragm which could be technical recommend standard uprigh t view of the abdomen or decubitus view for further evaluation.
[2019-05-14 14:32] VITALS: TEMP 101.1
[2019-05-14] MEDS: HALOPERIDOL LACTATE 5 MG/ML 1 ML VIAL IVP PRN (16:30)
[2019-05-14 17:13] VITALS: BP 146/92; PULSE 98; RESP 18
--- NOTE | 2019-05-15 13:55 | CDI ---
Documentation Clarification Form Date: 05/15/2019 From: Aissatou Herrera Phone: If questions call Antionette Keita @ [phone], Hours-8:30 am & 5 pm M- F Admit Date: 04/16/2019 12:48:00 AM Patient Name: Sigifredo Garcia Visit Number: [id number] Discharge Date: 05/14/2019 6:34:00 PM ATTENTION: The Clinical Documentation Specialists (CDI) and [facility] Coding Staff appreciate your assistance in clarifying documentation. Please respond to the clarification below the line at the bottom and electronically sign. The CDI & [facility] Coding staff will review the response and follow-up if needed. Please note: Queries are made part of the Legal Health Record. If you have any questions, please contact the author of this message via ITS. Dr. Jacky Daniels Heart failure is documented in the following PNs: 04/20, 04/21, 04/22, 04/23, 04/24, 04/25, 04/26, 04/27, 04/29, 04/30, 05/01, 05/03, 05/04, 05/05, 05/06, 05/07, 05/09, 05/10, 05/11, 05/12, 05/13 & DS. History/Risk Factors: poss ca of cecum, poss, colitis, Candidal sepsis from line infection, acute respiratory failure-hypoxic & hypercapnia, aspiration pneumonia VS/Pulse OX: T-98.1, P-61, R-27, BP-108/69, on MV BNP: 79 Echocardiogram Results: left ventricular systolic function is normal with an EF between 55 - 60%. 04/19 Chest X Ray: correlated for CHF, pneumonia, ARDS Treatment: IV Lasix 40 mg once STA X2, IV Lasix 20 mg Q12HR then IV Lasix 40 mg Q12HR In your professional opinion, can you please clarify the acuity and type of CHF if known? TYPE Systolic Heart Failure Diastolic Heart Failure Systolic & Diastolic Heart Failure ACUITY Acute Chronic Acute on Chronic Heart Failure Unable to Determine Other, please specify No heart failure. CXR reports not clinical diagnosis. MTDD
== END 2019-05-14 18:34 | DRG 4 ==
LOC: EC 22:03 → 4SSUR 04-16 00:48 → EDBD 04-16 00:48 → 2SICU 04-17 06:45
PROVIDERS: ADMIT Internal Medicine; ATTEND Internal Medicine
PROC: 5A1955Z Respiratory Ventilation, Greater than 96 Consecutive Hours (ICD-10-PCS; 2019-04-17)
PROC: 0BH18EZ Insertion of Endotracheal Airway into Trachea, Via Natural or Artificial Opening Endoscopic (ICD-10-PCS; 2019-04-17)
PROC: 5A09357 Assistance with Respiratory Ventilation, Less than 24 Consecutive Hours, Continuous Positive Airway Pressure (ICD-10-PCS; 2019-04-17)
PROC: 0D9670Z Drainage of Stomach with Drainage Device, Via Natural or Artificial Opening (ICD-10-PCS; 2019-04-17)
PROC: 02HV33Z Insertion of Infusion Device into Superior Vena Cava, Percutaneous Approach (ICD-10-PCS; 2019-04-17)
PROC: 03HY32Z Insertion of Monitoring Device into Upper Artery, Percutaneous Approach (ICD-10-PCS; 2019-04-17)
PROC: 4A133B1 Monitoring of Arterial Pressure, Peripheral, Percutaneous Approach (ICD-10-PCS; 2019-04-17)
PROC: 4A133J1 Monitoring of Arterial Pulse, Peripheral, Percutaneous Approach (ICD-10-PCS; 2019-04-17)
PROC: 0BH18EZ Insertion of Endotracheal Airway into Trachea, Via Natural or Artificial Opening Endoscopic (ICD-10-PCS; 2019-04-19)
PROC: 0B978ZZ Drainage of Left Main Bronchus, Via Natural or Artificial Opening Endoscopic (ICD-10-PCS; 2019-04-19)
PROC: 0B918ZZ Drainage of Trachea, Via Natural or Artificial Opening Endoscopic (ICD-10-PCS; 2019-04-19)
PROC: 0B938ZZ Drainage of Right Main Bronchus, Via Natural or Artificial Opening Endoscopic (ICD-10-PCS; 2019-04-19)
PROC: 0DJD8ZZ Inspection of Lower Intestinal Tract, Via Natural or Artificial Opening Endoscopic (ICD-10-PCS; 2019-04-20)
PROC: 3E0436Z Introduction of Nutritional Substance into Central Vein, Percutaneous Approach (ICD-10-PCS; 2019-04-21)
PROC: 0B110F4 Bypass Trachea to Cutaneous with Tracheostomy Device, Open Approach (ICD-10-PCS; principal; 2019-04-27 14:51)
PROC: 02H633Z Insertion of Infusion Device into Right Atrium, Percutaneous Approach (ICD-10-PCS; 2019-05-04)
PROC: 3E0G76Z Introduction of Nutritional Substance into Upper GI, Via Natural or Artificial Opening (ICD-10-PCS; 2019-05-07)
DX: K52.9 Noninfective gastroenteritis and colitis, unspecified (principal); T80.211A Bloodstream infection due to central venous catheter, initial encounter; J96.02 Acute respiratory failure with hypercapnia; J96.01 Acute respiratory failure with hypoxia; J69.0 Pneumonitis due to inhalation of food and vomit; B37.7 Candidal sepsis; R65.21 Severe sepsis with septic shock; E43 Unspecified severe protein-calorie malnutrition; J15.211 Pneumonia due to Methicillin susceptible Staphylococcus aureus; E87.4 Mixed disorder of acid-base balance; C18.0 Malignant neoplasm of cecum; I45.2 Bifascicular block; J93.82 Other air leak; J44.0 Chronic obstructive pulmonary disease with (acute) lower respiratory infection; J44.1 Chronic obstructive pulmonary disease with (acute) exacerbation; F10.231 Alcohol dependence with withdrawal delirium; E87.0 Hyperosmolality and hypernatremia; I47.1 Supraventricular tachycardia; Z99.11 Dependence on respirator [ventilator] status; J98.11 Atelectasis; K62.5 Hemorrhage of anus and rectum; K56.7 Ileus, unspecified; B37.49 Other urogenital candidiasis; K63.89 Other specified diseases of intestine; E66.01 Morbid (severe) obesity due to excess calories; E11.65 Type 2 diabetes mellitus with hyperglycemia; I48.0 Paroxysmal atrial fibrillation; I11.0 Hypertensive heart disease with heart failure; E87.8 Other disorders of electrolyte and fluid balance, not elsewhere classified; E83.39 Other disorders of phosphorus metabolism; K57.30 Diverticulosis of large intestine without perforation or abscess without bleeding; G47.33 Obstructive sleep apnea (adult) (pediatric); K21.9 Gastro-esophageal reflux disease without esophagitis; K29.70 Gastritis, unspecified, without bleeding; E78.5 Hyperlipidemia, unspecified; F41.1 Generalized anxiety disorder; R77.8 Other specified abnormalities of plasma proteins; G89.29 Other chronic pain; M54.9 Dorsalgia, unspecified; Z68.36 Body mass index [BMI] 36.0-36.9, adult; Z79.82 Long term (current) use of aspirin; Z79.84 Long term (current) use of oral hypoglycemic drugs; Z79.51 Long term (current) use of inhaled steroids; Z79.899 Other long term (current) drug therapy; Z91.19 Patient's noncompliance with other medical treatment and regimen; Z71.3 Dietary counseling and surveillance; Z87.01 Personal history of pneumonia (recurrent); Z87.19 Personal history of other diseases of the digestive system; Z87.891 Personal history of nicotine dependence; Z98.890 Other specified postprocedural states; Z80.0 Family history of malignant neoplasm of digestive organs; Z82.3 Family history of stroke; Z83.1 Family history of other infectious and parasitic diseases; Z81.3 Family history of other psychoactive substance abuse and dependence
CPT/HCPCS: 36415; 36573; 36600; 45378; 71045; 74018; 74019; 74176; 74177; 74230; 74270; 76705; 80048; 80053; 80202; 81001; 82150; 82310; 82330; 82378; 82565; 82805; 83605; 83690; 83735; 83880; 83930; 83935; 84100; 84132; 84134; 84295; 84439; 84443; 84478; 84484; 85025; 85027; 85610; 85730; 87040; 87045; 87046; 87070; 87077; 87086; 87102; 87103; 87116; 87186; 87205; 87206; 87252; 87324; 87496; 87498; 87502; 87529; 87634; 87798; 88108; 88305; 93005; 93306; 93308; 94002; 94003; 94640; 94660; 94664; 94760; 96361; 96374; 96375; 99285